=== PATIENT | female | born 1955 | race Caucasian/White ===

== ENCOUNTER 2019-04-05 20:00 | Outpatient (CLI) | payer MEDICAID, SELFPAY | END 2019-04-05 20:01 | disposition home or self-care (01) | LOC: SLEEP 04-06 10:00 | PROVIDERS: Family Provider Internal Medicine; PCP Internal Medicine; Visit Provider Internal Medicine | DX: G47.33 Obstructive sleep apnea (adult) (pediatric) (principal) | CPT/HCPCS: 95811 ==

== ENCOUNTER 2019-04-14 09:53 | Outpatient (CLI) | payer MEDICAID, SELFPAY ==
[2019-04-14 10:14] LABS: Basophils % 0.4 %; Eosinophils # 0.2 10^3/uL (0.0-0.8); Eosinophils % 1.8 %; Hematocrit 31.2 % (37.0-47.0); Hemoglobin 8.9 g/dL (11.5-15.3); Lymphocytes # 1.2 10^3/uL (0.8-4.8); Lymphocytes % 13.7 %; Mean Corpuscular HGB Conc 28.5 g/dL (30.0-36.0); Mean Corpuscular Volume 84.1 fL (81-99); Mean Platelet Volume 9.4 fL (7.4-10.4); Monocytes # 0.5 10^3/uL (0.2-0.9); Monocytes % 5.6 %; Neutrophils % 78.3 %; Nucleated Red Blood Cells % 0 %; Platelet Count 293 10^3/cmm (130-400); Red Blood Count 3.71 10^6/uL (4.1-5.3)
[2019-04-14 13:03] LABS: Ferritin 24 ng/mL (15-150); Iron 21 ug/dL (37-145); Percent Saturation 6.5 % (20-50); Total Iron Binding Capacity 319 mcg/dl; Unsaturated Iron Binding 298 ug/dL (112-347)
[2019-04-14 13:19] LABS: Folate Level 10.8 ng/mL (4.8-37.3); Vitamin B12 345 pg/mL (232-1245)
--- NOTE | 2019-04-14 13:22 | ONC FU_ITS ---
Dr. Pulido follow up note Patient: Seema Del Rosario Unit #: [id number]: 1955 Dicatated By: Abraham Pulido M.D.Date of Visit:Apr 14, 2019 Onc Med Follow-up/Prog Note History of Present Illness: Mrs. Seema Del Rosario, 62-year-old female with new diagnosed left breast cancer status post left partial mastectomy with axillary sentinel lymph node biopsy performed on 09/01/2016 final path report Infiltrating ductal carcinoma grade 1 with clear surgical margins tumor dimensions 3.6 x 1.5 cm positive lymphovascular space invasion Left axilla lymph node biopsy #1 showed benign lymph node no metastatic tumor identified Left axilla lymph node biopsy #2 benign adipose tissue no lymph node identified breast cancer prognostic profile showed Ki-67 analysis 4% favorable Estrogen receptor assay 100% Progesterone receptor assay 83% HER-2/bessy status negative by IHC and FISH over amplification As per patient in the month of she started having chest pain and went to see her primary care doctor and his CTA was done to rule out PE and it came back negative but there was a incidental finding of a left breast lump seen on the CT scan mammogram and sonogram was done and subsequently she underwent ultrasound-guided biopsy of left breast found to have infiltrating ductal carcinoma, and a further on 09/01/2016 she underwent partial mastectomy. Postop. Complicated by development of hematoma due to aspirin now resolved . She tried Arimidex for 1 week and developed joint pains and muscle aches just prior to recent hospital admission and then she stopped taking Arimidex Switched to Aromasin, tolerating well lower extremity pain/discomfort recently underwent great saphenous vein ablation of left side for symptomatic varicose vein. As per patient now procedure didn't help her much. In December 2017 she also had venous Doppler study of lower extremity that showed no DVTs but lower extremity arterial study showed evidence of peripheral vascular disease.Repeat venous Doppler study done on 07/16/2018 showed no evidence of DVT in left lower extremity occasional hot flashes otherwise tolerating Aromasin well Mammogram done on 09/09/2018 shows BI-RADS 2 benign Came for follow-up, denies any specific complaint except generalized weakness and fatigue, and recently underwent sleep study, patient has sleep apnea and using CPAP machine. Patient denies any melena or hematochezia denies any jaundice denies any hemoptysis hematemesis denies any palpitation or shortness of breath at rest. Occasionally hot flash otherwise tolerating Aromasin well Medications: Advair Diskus 1 puff(s) (of 250-50 mcg/dose) Aerosol Powder, Breath Activated Inhalation b.i.d., Albuterol Sulfate 2 puff(s) (of 108 (90 base) mcg/act) Aerosol Powder, Breath Activated Inhalation q 4 hours, Allopurinol 1 Tablet (of 100 mg) Oral daily, Amiodarone HCl 1 Tablet (of 200 mg) Oral daily, AmLODIPine Besylate 1 Tablet (of 10 mg) Oral daily, Aspirin EC 1 (325 mg) Tablet, enteric coated Oral daily, cloNIDine HCl 1 Tablet Oral daily, Exemestane 1 (25 mg) Tablet Oral daily, Gabapentin 1 Capsule (of 300 mg) Oral t.i.d., HumaLOG 35 Units Subcutaneous t.i.d., Isosorbide Mononitrate ER 1.5 Tablet (of 60 mg) Tablet SR 24 HR Oral every am, lasix 1 Tablet (of 80 mg) b.i.d., Simvastatin 1 (10 mg) Tablet Oral at bedtime, Spiriva HandiHaler 1 Capsule (of 18 mcg) Inhalation daily, Tresiba FlexTouch 100 Units Subcutaneous daily, Victoza 1.2 mg (of 0.6 ) Subcutaneous daily, Zoloft 1 Tablet (of 100 mg) Oral daily Allergies: Anastrozole Review of Systems: Constitutional - Appetite is good and weight is stable. No fever, chills, hot flashes, or night sweats. Energy level is poor, ENMT - No sinus congestion/drainage. No mouth sores. No sore throat or difficulty swallowing, Hematologic/Lymphatic - No abnormal bruising or bleeding, Respiratory - Frequent shortness of breath. No cough. No pleuritic pain or hemoptysis, Cardiovascular - No angina pain. No palpitations, Gastrointestinal - No nausea or vomiting. No heartburn or acid reflux. No diarrhea or constipation. No blood in the stool or black stools, Genitourinary (F) - No dysuria or hematuria. No urinary frequency. No urgency or incontinence, Musculoskeletal - No joint or bone pain, Integumentary - Denies alopecia, blistering, bruising, dry skin, facial burning, nail changes, photosensitivity, pruritus, rash and urticaria, Neurologic - No headache. Occasional dizziness. Patient reports diabetic neuropathy in feet, Psychiatric - No anxiety or depression. No insomnia. Vital Signs: Performed on Apr 14, 2019 11:42 Height - 66.00 in Weight - 307.0 lbs (HIGH) BSA - 2.40 sq.m BMI - 49.55 (HIGH) Temperature - 97.6 F (LOW) Pulse - 72 /min Respiration - 20 /min BP - 157/73 mm(hg) (HIGH) O2 Sat - 94 % (LOW) Pain - 0 Performance Status: 2 - Ambulatory/capable of all self-care, unable to perform any work activities. Up and about more than 50% of waking hours. (ECOG) Physical Examination: Respiratory - poor air entry, mild basilar rales bilaterally, Cardiovascular - Regular rate and rhythm of heart, Extremities - 2+ edema bilaterally. Lab/Imaging: Test performed on Oct 28, 2018 07:39 Sodium 143 mmol/L Potassium 3.3 mmol/L Chloride 93 mmol/L CO2 34 mmol/L Anion Gap 19.3 BUN 49 mg/dL Creatinine 1.7 mg/dL Cr Clearance (Est) 72.68 mL/min eGFR 30.5 mL/min Glucose 102 mg/dl Calcium 9.7 mg/dL Protein, Total 7.8 g/dL Albumin 4.0 g/dL Globulin 3.8 gm/dL Bilirubin, Total 0.2 mg/dL ALT (SGPT) 20 U/L AST (SGOT) 18 U/L Alkaline Phosphatase 91 U/L WBC 11.1 /cmm RBC 3.95 10 6/cmm HGB 10.8 g/dl HCT 33.0 % MCV 83.7 /cmm MCH 27.3 pg MCHC 32.6 g/dl RDW 16.2 % Platelet Count 329 10 3/cmm MPV 7.4 fl Neutrophils 8.6 10 3/cmm Lymphocytes 1.6 10 3/cmm Monocytes 0.6 10 3/cmm Eosinophils 0.2 10 3/cmm Basophils 0.1 10 3/cmm Neutrophil % 77.5 % Lymphocyte % 14.6 % Monocyte % 5.8 % Eosinophil % 1.5 % Basophils % 0.6 % CA 27.29 9.43 U/mL Impression: Infiltrating ductal carcinoma of left breast status post partial mastectomy on 09/01/2016 final path report tumor size 3.6 x 1.5 cm , grade 1 clear margins , sentinel lymph node negative for metastatic disease, ER/OK positive HER-2/bessy negative by IHC and over amplification by FISH. T2, N0 ( sentinal node) ,Mx stage IIA Oncotype DX low risk recurrence score 3 Started on Arimidex on 10/16/2016 took it for 1 week then discontinued because of joint pains and muscle aches Started on exemestane 25 mg daily on 01/22/2017. For 5 years Recent Episode of atrial fibrillation status post cardioversion Newly diagnosed anemia normocytic normochromic ? etiology , could be due to diagnostic phlebotomy for lab workup during hospitalization, or blood loss due to anticoagulation for A. fib, patient denies any melena hematochezia. Follow-up mammogram done on 09/08/2017 showed BI-RADS 2-benign. Venous Doppler study of lower extremity done in December 2017 showed no evidence of DVTs but arterial study showed peripheral vascular disease. status post left great saphenous vein ablation Plan: Discussed with patient regarding her labs white blood count 9 hemoglobin 8.9 compared to 10.8 g on 10/28/2018 hematocrit 31.2 platelets 293,000 Clinically, patient is doing well, no signs symptoms suggestive of recurrence of breast cancer. Tolerating Aromasin well but with expected side effects e.g. occasionally hot flashes. Patient has progressive anemia, etiology unclear could be multifactorial including anemia due to chronic renal insufficiency or anemia of chronic disease or underlying myelodysplasia or iron deficiency/B12 deficiency. Or hemodilution, due to food retention due to congestive heart failure. We will do iron studies, check B12 and folate level and reticulocyte count and based on that we will make further recommendations in the meantime continue to monitor blood counts she will return to clinic in one month with CBC and consider blood transfusion if hemoglobin drops below 8 g. Signed By: Abraham Pulido M.D. <<Signature on File>>
== END 2019-04-14 09:54 | disposition home or self-care (01) ==
LOC: ONCMED 09:55
PROVIDERS: Family Provider Internal Medicine; PCP Internal Medicine; Visit Provider Internal Medicine Hematology & Oncology
DX: C50.512 Malignant neoplasm of lower-outer quadrant of left female breast (principal); D64.9 Anemia, unspecified; I48.91 Unspecified atrial fibrillation; Z17.0 Estrogen receptor positive status [ER+]; Z79.811 Long term (current) use of aromatase inhibitors; Z79.899 Other long term (current) drug therapy; Z90.12 Acquired absence of left breast and nipple
CPT/HCPCS: 36415; 82607; 82728; 82746; 83540; 83550; 85025; 85045; 99214

== ENCOUNTER 2019-04-25 10:39 | Emergency (ER) | payer MEDICAID, SELFPAY ==
[2019-04-25 10:51] VITALS: BP 147/73; PULSE 65; RESP 16; O2SAT 97; BMI 49.9
--- NOTE | 2019-04-25 11:12 | ECG_ITS ---
Measurements Intervals [place] Rate: 67 P: 55 ND: 191 QRS: -43 QRSD: 170 T: 48 QT: 492 QTc: 520 SINUS RHYTHM LEFT AXIS DEVIATION [QRS AXIS < -30] RIGHT BUNDLE BRANCH BLOCK [120+ ms QRS DURATION, UPRIGHT V1, 40+ ms S IN I/aVL/V4/V5/V6] ANTEROSEPTAL MYOCARDIAL INFARCTION , OF INDETERMINATE AGE [40+ ms Q WAVE IN V1-V4] Compared to ECG 01/20/2019 14:47:50 No significant changes Electronically Signed On 04-25-2019 20:50:18 CDT by Reid Lopez M.D. [id number]
--- NOTE | 2019-04-25 11:12 | XRR_ITS ---
PROCEDURE INFORMATION: Exam: XR Chest, 1 View Exam date and time: 04/25/2019 11:30 AM Age: 63 years old Clinical indication: Cough; Prior surgery; Surgery date: 6+ months; Surgery type: Stent; Additional info: Cough/congestion TECHNIQUE: Imaging protocol: XR of the chest Views: 1 view. COMPARISON: CR Chest 2 views* [id number] 01/23/2019 9:47 AM FINDINGS: Lungs: Lungs are well aerated without a focal area of consolidation. Pleural space: Subpulmonic effusion on the right Heart/Mediastinum: The cardiac silhouette appears enlarged, Bones/joints: Unremarkable. XR/XR chest 1V portable [id number] IMPRESSION: Lungs are well aerated without a focal area of consolidation. Subpulmonic effusion on the right
[2019-04-25 11:48] LABS: Basophils % 0.3 %; Eosinophils # 0.1 10^3/uL (0.0-0.8); Eosinophils % 0.8 %; Hematocrit 31.5 % (37.0-47.0); Hemoglobin 9.1 g/dL (11.5-15.3); Lymphocytes # 1.3 10^3/uL (0.8-4.8); Lymphocytes % 11.9 %; Mean Corpuscular HGB Conc 28.9 g/dL (30.0-36.0); Mean Corpuscular Hemoglobin 23.5 pg (28.0-34.0); Mean Corpuscular Volume 81.4 fL (81-99); Mean Platelet Volume 9.1 fL (7.4-10.4); Monocytes # 0.5 10^3/uL (0.2-0.9); Monocytes % 4.5 %; Neutrophils # 8.8 10^3/uL (1.8-7.7); Nucleated Red Blood Cells % 0 %; Platelet Count 322 10^3/cmm (130-400); Red Blood Count 3.87 10^6/uL (4.1-5.3); Red Cell Distribution Width 17.1 % (12.1-15.1); White Blood Count 10.7 10^3/uL (4.0-10.0)
[2019-04-25 12:09] LABS: Alanine Aminotransferase 22 U/L (0-33); Albumin Level 3.8 g/dL (3.5-5.2); Alkaline Phosphatase 88 IU/L (35-105); Anion Gap 17.9 (5-19); Aspartate Amino Transferase 21 U/L (0-32); Blood Urea Nitrogen 39 mg/dL (8-23); Calcium 9.5 mg/dL (8.5-10.5); Carbon Dioxide 28 mmol/L (22-29); Chloride 102 mmol/L (98-107); Globulin 3.7 g/dL (1.3-4.6); Glucose 55 mg/dL (65-115); Osmolality Calculated 293 mOsm/kg (285-295); Potassium 3.9 mmol/L (3.5-5.1); Sodium 144 mmol/L (136-145); Total Bilirubin 0.3 mg/dL (0.15-1.2); Total Protein 7.5 g/dL (6.6-8.7)
[2019-04-25 12:11] LABS: Troponin(5th) Baseline 31 ng/mL (0-10)
--- NOTE | 2019-04-25 14:03 | ED_ITS ---
Entered by Celeste Cooper, acting as scribe for Godwin Mclaughlin DO Apr 25, 2019 10:39 HPI - Chest Pain General: Chief Complaint: Chest Pain Stated Complaint: SOB, CHEST PAINS Time Seen by Provider: 04/25/19 14:14 Source: patient and family Mode of arrival: ambulatory Limitations: no limitations History of Present Illness: HPI narrative: 63 yo female presents with shortness of breath and chest discomfort. pt states this started several days ago but worsened today. pt was seen by PCP clinic and referred to the ED. pt has a hx of CHF. pt has bilateral leg swelling. pt states this is worsened by laying flat and nothing makes this better. MD complaint: chest pain and other (SOB) Onset (ago): day(s) Timing of current episode: increasing and still present Onset: during rest Pain radiation: none Severity: moderate Quality: heaviness Relieving factors: nothing Exacerbating factors: exertion Associated symptoms: Reports dyspnea; Deny abdominal pain, fever(s), nausea, palpitations or vomiting Treatment prior to arrival: none Review of Systems General: Reports: 10 or more systems reviewed and unremarkable except in HPI and below Const: Denies: fever, chills, body aches, change in appetite, fatigue or malaise ENMT: Denies: throat pain, ear pain, nasal discharge or nasal congestion Card: Reports: swelling of feet/ankles and shortness of breath on exertion; Denies: chest pain, palpitations or irregular heart rhythm Resp: Reports: shortness of breath GI: Denies: abdominal pain, nausea, vomiting, vomiting blood, coffee grounds in vomit, diarrhea, constipation, bloating, blood in stool or black tarry stool : Denies: flank pain, difficulty urinating, painful urination, urinary frequency or urinary urgency Skin/Breast: Denies: rash or itching PFSH ED PFSH: Social History Smoking and tobacco status: never smoked Physical Exam Const: COMMON NORMALS: no apparent distress GENERAL APPEARANCE: cooperative and comfortable ORIENTATION/CONSCIOUSNESS: Yes awake, Yes oriented to person, Yes oriented to place and Yes oriented to time HENMT: COMMON NORMALS: normocephalic, head/scalp atraumatic, hearing grossly normal bilaterally, external ears normal, EAC's normal, TM's normal bilaterally, nasal mucous membranes and turbinates normal, moist oral mucous membranes and oropharynx normal HEAD & SCALP: normocephalic and atraumatic NOSE: nasal mucous membranes and turbinates normal EXTERNAL EAR: Yes external ears normal EXTERNAL AUDITORY CANAL: EAC's normal TYMPANIC MEMBRANE: TM's normal bilaterally Eye: COMMON NORMALS: PERRL, EOMs intact bilaterally, conjunctivae normal and no scleral icterus CONJUNCTIVA: Yes conjunctivae normal PUPIL: Yes PERRL Neck/C-Spine: COMMON NORMALS: full ROM, no lymphadenopathy, supple and no JVD Lymph: LYMPHATIC: no lymphadenopathy noted and no lymphedema noted Resp: AUSCULTATION: wheezes Cardio: COMMON NORMALS: no JVD, regular rate, regular rhythm and no murmurs RATE: regular rate RHYTHM: regular rhythm GI: COMMON NORMALS: soft to palpation and no hepatosplenomegaly AUSCULTATION: Yes normoactive bowel sounds PALPATION: Yes soft, No tender, No guarding and Yes no hepatosplenomegaly Extremity: GENERAL: Yes edema (3+ edema lower extremities she does have some ulcerations. Shallow no active infections apparent no erythema chronic venous stasis changes) RIGHT LOWER EXTREMITY: Yes ankle joint LEFT LOWER EXTREMITY: Yes lower leg and Yes ankle joint Neuro: SENSORIUM/ORIENTATION: Yes oriented to person, Yes oriented to place and Yes oriented to time Skin: COMMON NORMALS: no rashes or lesions noted GENERAL SKIN EXAM: no rashes or lesions noted Course ED course: No significant signs of congestive heart failure at this time. We will will increase her diuretics and potassium for a few days to improve decrease the edema in her lower extremities. Encourage her to keep her legs elevated. Return if has problems. Follow-up with her primary care doctor in 3 days for recheck of labs. Vital Signs: Vital signs: Vital Signs Pulse Rate 77 04/25/19 15:48 Respiratory Rate 17 04/25/19 15:48 Blood Pressure 177/87 04/25/19 15:48 Pulse Oximetry 97 04/25/19 15:48 MDM - Chest Pain Lab Data: Labs: Lab Results 04/25/19 04/25/19 04/25/19 Range/Units 11:38 11:38 11:38 WBC 10.7 H (4.0-10.0) 10^3/ uL RBC 3.87 L (4.1-5.3) 10^6/u L Hgb 9.1 L (11.5-15.3) g/dL Hct 31.5 L (37.0-47.0) % MCV 81.4 (81-99) fL MCH 23.5 L (28.0-34.0) pg MCHC 28.9 L (30.0-36.0) g/dL RDW 17.1 H (12.1-15.1) % Plt Count 322 (130-400) 10^3/c mm MPV 9.1 (7.4-10.4) fL Neut % (Auto) 82.0 % Lymph % (Auto) 11.9 % [place] % (Auto) 4.5 % Eos % (Auto) 0.8 % Baso % (Auto) 0.3 % Neut # (Auto) 8.8 H (1.8-7.7) 10^3/u L Lymph # (Auto) 1.3 (0.8-4.8) 10^3/u L [place] # (Auto) 0.5 (0.2-0.9) 10^3/u L Eos # (Auto) 0.1 (0.0-0.8) 10^3/u L Baso # (Auto) 0.0 (0.0-0.1) 10^3/u L Nucleated RBC % (a uto) 0 % Nucleated RBCs # 0.0 /100WBC Sodium 144 (136-145) mmol/L Potassium 3.9 (3.5-5.1) mmol/L Chloride 102 (98-107) mmol/L Carbon Dioxide 28 (22-29) mmol/L Anion Gap 17.9 (5-19) BUN 39 H (8-23) mg/dL Creatinine 1.4 H (0.5-0.9) mg/dL GFR Calculation 38.0 L (90-130) mL/min Glucose 55 L (65-115) mg/dL Calculated Osmolal ity 293 (285-295) mOsm/k g Calcium 9.5 (8.5-10.5) mg/dL Total Bilirubin 0.3 (0.15-1.2) mg/dL AST 21 (0-32) U/L ALT 22 (0-33) U/L Alkaline Phosphata se 88 (35-105) IU/L Troponin T Baselin e 31 H (0-10) ng/mL Troponin T [address] [place] (0-10) ng/mL Delta Troponin T (0-10) ABS# NT-Pro-B Natriuret Pep (0-125) pg/mL Total Protein 7.5 (6.6-8.7) g/dL Albumin 3.8 (3.5-5.2) g/dL Globulin 3.7 (1.3-4.6) g/dL 04/25/19 04/25/19 Range/Units 13:40 13:40 WBC (4.0-10.0) 10^3/ uL RBC (4.1-5.3) 10^6/u L Hgb (11.5-15.3) g/dL Hct (37.0-47.0) % MCV (81-99) fL MCH (28.0-34.0) pg MCHC (30.0-36.0) g/dL RDW (12.1-15.1) % Plt Count (130-400) 10^3/c mm MPV (7.4-10.4) fL Neut % (Auto) % Lymph % (Auto) % [place] % (Auto) % Eos % (Auto) % Baso % (Auto) % Neut # (Auto) (1.8-7.7) 10^3/u L Lymph # (Auto) (0.8-4.8) 10^3/u L [place] # (Auto) (0.2-0.9) 10^3/u L Eos # (Auto) (0.0-0.8) 10^3/u L Baso # (Auto) (0.0-0.1) 10^3/u L Nucleated RBC % (a uto) % Nucleated RBCs # /100WBC Sodium (136-145) mmol/L Potassium (3.5-5.1) mmol/L Chloride (98-107) mmol/L Carbon Dioxide (22-29) mmol/L Anion Gap (5-19) BUN (8-23) mg/dL Creatinine (0.5-0.9) mg/dL GFR Calculation (90-130) mL/min Glucose (65-115) mg/dL Calculated Osmolal ity (285-295) mOsm/k g Calcium (8.5-10.5) mg/dL Total Bilirubin (0.15-1.2) mg/dL AST (0-32) U/L ALT (0-33) U/L Alkaline Phosphata se (35-105) IU/L Troponin T Baselin e (0-10) ng/mL Troponin T 120 [address] [place] 27.07 H (0-10) ng/mL Delta Troponin T -3.93 L (0-10) ABS# NT-Pro-B Natriuret Pep 2660 H (0-125) pg/mL Total Protein (6.6-8.7) g/dL Albumin (3.5-5.2) g/dL Globulin (1.3-4.6) g/dL Discharge Plan Discharge Patient Disposition: Home, Self-Care Clinical Impression: Venous stasis ulcer with edema of lower leg Condition: Stable Prescriptions: Changed furosemide 80 mg tablet 120 mg PO BID Qty: 0 RF: 0 No Action silver sulfadiazine 1 % cream 1 applic TOPICAL BID RF: 0 clonidine HCl 0.1 mg tablet 0.1 mg PO Q8H PRN (Reason: Blood Pressure) RF: 0 amiodarone 200 mg tablet 200 mg PO DAILY RF: 0 sertraline 100 mg tablet 100 mg PO DAILY RF: 0 simvastatin 10 mg tablet 10 mg PO DAILY RF: 0 metolazone 5 mg tablet 5 mg PO EVERY OTHER DAY RF: 0 allopurinol 100 mg tablet 100 mg PO DAILY RF: 0 isosorbide mononitrate 60 mg tablet extended release 24 hr 90 mg PO DAILY RF: 0 exemestane 25 mg tablet 25 mg PO DAILY RF: 0 amlodipine 10 mg tablet 10 mg PO DAILY RF: 0 gabapentin 300 mg capsule 300 mg PO TID RF: 0 polyethylene glycol 3350 17 gram/dose powder 17 g PO DAILY PRN (Reason: Constipation) RF: 0 Humalog KwikPen Insulin 100 unit/mL insulin pen 35 unit SUBCUT TID RF: 0 Victoza 2-Jeremy 0.6 mg/0.1 mL (18 mg/3 mL) pen injector 1.2 mg SUBCUT DAILY RF: 0 Tresiba FlexTouch U-200 200 unit/mL (3 mL) insulin pen 100 unit SUBCUT DAILY RF: 0 potassium chloride 20 mEq tablet extended release 20 meq PO BID RF: 0 aspirin 325 mg Tablet 325 mg PO DAILY RF: 0 Discharge Orders: Discharge Order (Routine); Ordered 04/25/19 Ordered By: Godwin Mclaughlin Referrals: Jeanine Solares MD [Primary Care Provider] - Activity Restrictions/Additional Instructions: Use the increased Lasix dose for 5 days. During this time double your for potassium supplement dose. Follow-up with your doctor in 3 to 5 days. Discharge Date/Time: 04/25/19 15:49 Coding Level of Care Code ED Rhythmic Gymnastics Coach for Chg Fwd Exam Comprehensive The documentation recorded by the Kenneth ramos Bridget Annette, accurately reflects the service I personally performed and the decisions made by Arnoldo mathew Curtis L, DO Apr 25, 2019 10:39
[2019-04-25 14:38] LABS: Troponin 5 2HR 27.07 ng/mL (0-10)
[2019-04-25 14:43] LABS: Troponin 5 2HR Delta -3.93 ABS# (0-10)
[2019-04-25 14:52] VITALS: O2SAT 96
[2019-04-25 14:55] LABS: NT Pro B Type Natriuretic Pept 2660 pg/mL (0-125)
[2019-04-25] MEDS: FUROsemide 10 mg/mL SDV 10mL 60 MG IVP (14:57)
[2019-04-25 15:48] VITALS: BP 177/87; PULSE 77; RESP 17; O2SAT 97
== END 2019-04-25 15:49 | disposition home or self-care (01) ==
PROVIDERS: Physician Assistant; Emergency Provider Family Medicine; Family Provider Internal Medicine; PCP Internal Medicine
DX: I83.018 Varicose veins of right lower extremity with ulcer other part of lower leg (principal); L97.819 Non-pressure chronic ulcer of other part of right lower leg with unspecified severity; I50.9 Heart failure, unspecified
CPT/HCPCS: 12345; 36415; 71045; 80053; 83880; 84484; 85025; 93005; 96374; 96375; 99283; J1940

== ENCOUNTER 2019-05-12 13:01 | Outpatient (RCR) | payer MEDICAID, SELFPAY | END 2019-05-17 23:59 | disposition home or self-care (01) | LOC: WOUND 13:01 | PROVIDERS: Family Provider Internal Medicine; PCP Internal Medicine; Visit Provider Nurse Practitioner Family | DX: I87.2 Venous insufficiency (chronic) (peripheral) (principal); L97.822 Non-pressure chronic ulcer of other part of left lower leg with fat layer exposed; L97.812 Non-pressure chronic ulcer of other part of right lower leg with fat layer exposed | CPT/HCPCS: 11042; 87070; 87077; 87176; 87186; 87205; 99214; 99215 ==

== ENCOUNTER 2019-05-16 04:20 | Outpatient (CLI) | payer MEDICAID, SELFPAY ==
[2019-05-16 11:58] LABS: Basophils % 0.2 %; Eosinophils # 0.2 10^3/uL (0.0-0.8); Eosinophils % 1.5 %; Hematocrit 31.1 % (37.0-47.0); Hemoglobin 8.8 g/dL (11.5-15.3); Lymphocytes % 9.7 %; Mean Corpuscular HGB Conc 28.3 g/dL (30.0-36.0); Mean Corpuscular Hemoglobin 23.2 pg (28.0-34.0); Mean Corpuscular Volume 82.1 fL (81-99); Mean Platelet Volume 9.8 fL (7.4-10.4); Monocytes # 0.8 10^3/uL (0.2-0.9); Monocytes % 7.9 %; Neutrophils # 7.9 10^3/uL (1.8-7.7); Neutrophils % 80.2 %; Nucleated Red Blood Cells % 0 %; Platelet Count 350 10^3/cmm (130-400); Red Blood Count 3.79 10^6/uL (4.1-5.3); Red Cell Distribution Width 16.9 % (12.1-15.1); White Blood Count 9.8 10^3/uL (4.0-10.0)
== END 2019-05-16 04:21 | disposition home or self-care (01) ==
LOC: ONCMED 10:47
PROVIDERS: Family Provider Internal Medicine; PCP Internal Medicine; Visit Provider Internal Medicine Hematology & Oncology
DX: C50.512 Malignant neoplasm of lower-outer quadrant of left female breast (principal); E11.9 Type 2 diabetes mellitus without complications; E78.5 Hyperlipidemia, unspecified; J44.9 Chronic obstructive pulmonary disease, unspecified; M19.90 Unspecified osteoarthritis, unspecified site
CPT/HCPCS: 85025

== ENCOUNTER 2019-06-16 09:19 | Outpatient (RCR) | payer MEDICAID, SELFPAY | END 2019-06-16 23:59 | disposition home or self-care (01) | LOC: WOUND 09:19 | PROVIDERS: Family Provider Internal Medicine; PCP Internal Medicine; Visit Provider Nurse Practitioner Family | DX: I87.2 Venous insufficiency (chronic) (peripheral) (principal); L97.822 Non-pressure chronic ulcer of other part of left lower leg with fat layer exposed; L97.812 Non-pressure chronic ulcer of other part of right lower leg with fat layer exposed | CPT/HCPCS: 99214; 99215; G0463 ==

== ENCOUNTER 2019-06-30 09:24 | Outpatient (CLI) | payer MEDICAID, SELFPAY | END 2019-06-30 09:25 | disposition home or self-care (01) | LOC: WOUND 09:25 | PROVIDERS: Family Provider Internal Medicine; PCP Internal Medicine; Visit Provider Nurse Practitioner Family | DX: I87.2 Venous insufficiency (chronic) (peripheral) (principal); L97.812 Non-pressure chronic ulcer of other part of right lower leg with fat layer exposed | CPT/HCPCS: 29581; 99214 ==

== ENCOUNTER 2019-07-04 13:09 | Outpatient (CLI) | payer MEDICAID, SELFPAY | END 2019-07-04 13:10 | disposition home or self-care (01) | LOC: WOUND 13:09 | PROVIDERS: Family Provider Internal Medicine; PCP Internal Medicine; Visit Provider Nurse Practitioner Family | DX: Z51.89 Encounter for other specified aftercare (principal) | CPT/HCPCS: 29581 ==

== ENCOUNTER 2019-07-07 10:25 | Outpatient (CLI) | payer MEDICAID, SELFPAY ==
--- NOTE | 2019-07-07 10:28 | USCV_ITS ---
Seema Del Rosario Age: 63 Gender: F : 1955 Exam Date: 07/07/2019 10:44 Ordering Phys: Annie Foster XX Technologist: Exam Location: [facility] [place]_ Indication: SKIN ULCERS RIGHT LEFT Brachial 131.00 mmHg Brachial 145.00 mmHg Pressure (mmHg) Waveform Pressure (mmHg) Waveform 156.00 SERVICE DIRECTOR 149.00 147.00 DPA 145.00 1.00 Ankle/Brachial Index 1.00 100.00 Pre-Exercise Toe Pressure 99.00 0.69 Pre-Exercise Toe/Brachial Index 0.66 FINDINGS Normal resting ABIs bilaterally Minimally diminished resting TBIs bilaterally Normal segmental pressures CONCLUSIONS Features of mild peripheral artery disease bilaterally, possibly involving the distal vessels Dr Valentin Partida MD FAC (Electronically Signed) Final Date: 08 Jul 2019 13:50 S
== END 2019-07-07 10:26 | disposition home or self-care (01) ==
LOC: RAD 10:26
PROVIDERS: Family Provider Internal Medicine; PCP Internal Medicine; Visit Provider Nurse Practitioner Family
DX: L97.309 Non-pressure chronic ulcer of unspecified ankle with unspecified severity (principal); I73.9 Peripheral vascular disease, unspecified
CPT/HCPCS: 93922

== ENCOUNTER 2019-07-07 13:00 | Outpatient (CLI) | payer MEDICAID, SELFPAY | END 2019-07-07 13:01 | disposition home or self-care (01) | LOC: WOUND 13:00 | PROVIDERS: Family Provider Internal Medicine; PCP Internal Medicine; Visit Provider Nurse Practitioner Family | DX: I87.2 Venous insufficiency (chronic) (peripheral) (principal); L97.819 Non-pressure chronic ulcer of other part of right lower leg with unspecified severity | CPT/HCPCS: 99213 ==

== ENCOUNTER 2019-07-14 14:26 | Outpatient (CLI) | payer MEDICAID, SELFPAY | END 2019-07-14 14:27 | disposition home or self-care (01) | LOC: WOUND 14:26 | PROVIDERS: Family Provider Internal Medicine; PCP Internal Medicine; Visit Provider Nurse Practitioner Family | DX: Z09 Encounter for follow-up examination after completed treatment for conditions other than malignant neoplasm (principal) | CPT/HCPCS: 99212 ==

== ENCOUNTER 2019-07-21 14:03 | Outpatient (CLI) | payer MEDICAID, SELFPAY | END 2019-07-21 14:04 | disposition home or self-care (01) | LOC: WOUND 14:03 | PROVIDERS: Family Provider Internal Medicine; PCP Internal Medicine; Visit Provider Nurse Practitioner Family | DX: Z09 Encounter for follow-up examination after completed treatment for conditions other than malignant neoplasm (principal) | CPT/HCPCS: 99212; A6545 ==

== ENCOUNTER 2019-08-04 12:21 | Outpatient (CLI) | payer MEDICAID, SELFPAY ==
[2019-08-04 13:01] LABS: Basophils % 0.4 %; Eosinophils # 0.2 10^3/uL (0.0-0.8); Eosinophils % 1.4 %; Hematocrit 32.4 % (37.0-47.0); Hemoglobin 9.4 g/dL (11.5-15.3); Lymphocytes # 1.3 10^3/uL (0.8-4.8); Lymphocytes % 12.1 %; Mean Corpuscular Hemoglobin 23.4 pg (28.0-34.0); Mean Corpuscular Volume 80.6 fL (81-99); Mean Platelet Volume 9.6 fL (7.4-10.4); Monocytes # 0.5 10^3/uL (0.2-0.9); Monocytes % 4.7 %; Neutrophils # 8.8 10^3/uL (1.8-7.7); Neutrophils % 81.1 %; Nucleated Red Blood Cells % 0 %; Platelet Count 349 10^3/cmm (130-400); Red Blood Count 4.02 10^6/uL (4.1-5.3); Red Cell Distribution Width 18.4 % (12.1-15.1); White Blood Count 10.9 10^3/uL (4.0-10.0)
--- NOTE | 2019-08-04 14:24 | ONC FU_ITS ---
Dr. Pulido follow up note Patient: Seema Del Rosario Unit #: [id number]: 1955 Dicatated By: Abraham Pulido M.D.Date of Visit:Aug 04, 2019 Onc Med Follow-up/Prog Note History of Present Illness: Mrs. Seema Del Rosario, 63-year-old female with new diagnosed left breast cancer status post left partial mastectomy with axillary sentinel lymph node biopsy performed on 09/01/2016 final path report Infiltrating ductal carcinoma grade 1 with clear surgical margins tumor dimensions 3.6 x 1.5 cm positive lymphovascular space invasion Left axilla lymph node biopsy #1 showed benign lymph node no metastatic tumor identified Left axilla lymph node biopsy #2 benign adipose tissue no lymph node identified breast cancer prognostic profile showed Ki-67 analysis 4% favorable Estrogen receptor assay 100% Progesterone receptor assay 83% HER-2/bessy status negative by IHC and FISH over amplification As per patient in the month of she started having chest pain and went to see her primary care doctor and his CTA was done to rule out PE and it came back negative but there was a incidental finding of a left breast lump seen on the CT scan mammogram and sonogram was done and subsequently she underwent ultrasound-guided biopsy of left breast found to have infiltrating ductal carcinoma, and a further on 09/01/2016 she underwent partial mastectomy. Postop. Complicated by development of hematoma due to aspirin now resolved . She tried Arimidex for 1 week and developed joint pains and muscle aches just prior to recent hospital admission and then she stopped taking Arimidex Switched to Aromasin, tolerating well lower extremity pain/discomfort recently underwent great saphenous vein ablation of left side for symptomatic varicose vein. As per patient now procedure didn't help her much. In December 2017 she also had venous Doppler study of lower extremity that showed no DVTs but lower extremity arterial study showed evidence of peripheral vascular disease.Repeat venous Doppler study done on 07/16/2018 showed no evidence of DVT in left lower extremity occasional hot flashes otherwise tolerating Aromasin well Mammogram done on 09/09/2018 shows BI-RADS 2 benign Came for follow-up, complaining of generalized weakness and fatigue, but no melena or hematochezia, no hemoptysis or hematemesis, no jaundice, no palpitation no shortness of breath at rest. Patient said she is using BiPAP diligently for sleep apnea.. Occasional hot flashes otherwise tolerating Aromasin well along with vitamin D and calcium Medications: Advair Diskus 1 puff(s) (of 250-50 mcg/dose) Aerosol Powder, Breath Activated Inhalation b.i.d., Albuterol Sulfate 2 puff(s) (of 108 (90 base) mcg/act) Aerosol Powder, Breath Activated Inhalation q 4 hours, Allopurinol 1 Tablet (of 100 mg) Oral daily, Amiodarone HCl 1 Tablet (of 200 mg) Oral daily, AmLODIPine Besylate 1 Tablet (of 10 mg) Oral daily, Aspirin EC 1 (325 mg) Tablet, enteric coated Oral daily, cloNIDine HCl 1 Tablet Oral daily, Exemestane 1 (25 mg) Tablet Oral daily, Gabapentin 1 Capsule (of 300 mg) Oral t.i.d., HumaLOG 35 Units Subcutaneous t.i.d., Isosorbide Mononitrate ER 1.5 Tablet (of 60 mg) Tablet SR 24 HR Oral every am, lasix 1 Tablet (of 80 mg) b.i.d., Simvastatin 1 (10 mg) Tablet Oral at bedtime, Spiriva HandiHaler 1 Capsule (of 18 mcg) Inhalation daily, Tresiba FlexTouch 100 Units Subcutaneous daily, Victoza 1.2 mg (of 0.6 ) Subcutaneous daily, Zoloft 1 Tablet (of 100 mg) Oral daily Allergies: Anastrozole Review of Systems: Constitutional - Appetite is good and weight is stable. No fever, chills, hot flashes, or night sweats. Energy level is poor, ENMT - No sinus congestion/drainage. No mouth sores. No sore throat or difficulty swallowing, Hematologic/Lymphatic - No abnormal bruising or bleeding, Respiratory - Frequent shortness of breath. Pt has portable oxygen today. No cough. No pleuritic pain or hemoptysis, Cardiovascular - No angina pain. No palpitations, Gastrointestinal - No nausea or vomiting. No heartburn or acid reflux. No diarrhea or constipation. No blood in the stool or black stools, Genitourinary (F) - No dysuria or hematuria. No urinary frequency. No urgency or incontinence, Musculoskeletal - No joint or bone pain, Integumentary - Denies alopecia, blistering, bruising, dry skin, facial burning, nail changes, photosensitivity, pruritus, rash and urticaria, Neurologic - No headache. Occasional dizziness. Patient reports diabetic neuropathy in feet, Psychiatric - No anxiety or depression. No insomnia. Vital Signs: Performed on Aug 04, 2019 13:50 Height - 66.00 in Weight - 296.6 lbs (LOW) BSA - 2.36 sq.m BMI - 47.87 (HIGH) Temperature - 98.0 F (LOW) Pulse - 64 /min Respiration - 20 /min BP - 155/66 mm(hg) (HIGH) O2 Sat - 98 % Pain - 0 Performance Status: 1 - No physically strenuous activity, but ambulatory and able to carry out light or sedentary work (e.g. office work, light house work). (ECOG) Physical Examination: Respiratory - Lungs are clear, Cardiovascular - Regular rate and rhythm of heart, Gastrointestinal - Soft, bowel sounds present, Extremities - 1+ edema bilaterally. Lab/Imaging: Test performed on May 16, 2019 04:20 WBC 9.8 10 3/uL RBC 3.79 10 6/uL HGB 8.8 g/dL HCT 31.1 % MCV 82.1 fL MCH 23.2 pg MCHC 28.3 g/dL RDW 16.9 % Platelet Count 350 10 3/cmm MPV 9.8 fL Neutrophils 7.9 10 3/uL Lymphocytes 1.0 10 3/uL Monocytes 0.8 10 3/uL Eosinophils 0.2 10 3/uL Basophils 0.0 10 3/uL Neutrophil % 80.2 % Lymphocyte % 9.7 % Monocyte % 7.9 % Eosinophil % 1.5 % Basophils % 0.2 % Test performed on Apr 14, 2019 12:33 Ferritin 24 ng/mL Iron 21 ug/dL Vitamin B12 345 pg/mL UIBC 298 ug/dL Impression: Infiltrating ductal carcinoma of left breast status post partial mastectomy on 09/01/2016 final path report tumor size 3.6 x 1.5 cm , grade 1 clear margins , sentinel lymph node negative for metastatic disease, ER/TX positive HER-2/bessy negative by IHC and over amplification by FISH. T2, N0 ( sentinal node) ,Mx stage IIA Oncotype DX low risk recurrence score 3 Started on Arimidex on 10/16/2016 took it for 1 week then discontinued because of joint pains and muscle aches Started on exemestane 25 mg daily on 01/22/2017. For 5 years Recent Episode of atrial fibrillation status post cardioversion Newly diagnosed anemia normocytic normochromic ? etiology , could be due to diagnostic phlebotomy for lab workup during hospitalization, or blood loss due to anticoagulation for A. fib, patient denies any melena hematochezia. Follow-up mammogram done on 09/08/2017 showed BI-RADS 2-benign. Venous Doppler study of lower extremity done in December 2017 showed no evidence of DVTs but arterial study showed peripheral vascular disease. status post left great saphenous vein ablation Plan: Discussed with patient regarding her labs white blood count 10.9 hemoglobin 9.4 hematocrit 32.4 platelets 349,000 and iron studies done on April 14, 2019 showed iron saturation 6.5% L, iron 21 L, ferritin 24 folate 10.8, B12 345 Clinically, patient is doing reasonably well, with no new signs symptom suggestive of recurrence of disease, tolerating Aromasin/vitamin D/calcium well. Will continue with same As for his anemia is concerned, her anemia work-up is consistent with iron deficiency and patient never had colonoscopy or EGD done before. Will refer her to Dr. Leavitt for evaluation for colonoscopy/EGD to rule out GI source of blood loss. Patient was advised to start taking oral iron and multivitamin and then she will return to clinic in 2 months with CBC and iron studies, if there is no improvement we will consider parenteral iron. And also consider follow-up mammogram Signed By: Abraham Pulido M.D. <<Signature on File>>
== END 2019-08-04 12:22 | disposition home or self-care (01) ==
LOC: ONCMED 12:27
PROVIDERS: PCP Internal Medicine; Visit Provider Internal Medicine Hematology & Oncology
DX: C50.812 Malignant neoplasm of overlapping sites of left female breast (principal); Z17.0 Estrogen receptor positive status [ER+]; D64.9 Anemia, unspecified; Z79.811 Long term (current) use of aromatase inhibitors; I48.91 Unspecified atrial fibrillation; I73.9 Peripheral vascular disease, unspecified; Z90.12 Acquired absence of left breast and nipple
CPT/HCPCS: 85025; 99214

== ENCOUNTER 2019-08-18 15:31 | Outpatient (CLI) | payer MEDICAID, SELFPAY | END 2019-08-18 15:32 | disposition home or self-care (01) | LOC: WOUND 15:32 | PROVIDERS: PCP Internal Medicine; Visit Provider Nurse Practitioner Family | DX: I87.2 Venous insufficiency (chronic) (peripheral) (principal); L97.811 Non-pressure chronic ulcer of other part of right lower leg limited to breakdown of skin | CPT/HCPCS: 29581 ==

== ENCOUNTER 2019-08-22 11:12 | Outpatient (CLI) | payer MEDICAID, SELFPAY | END 2019-08-22 11:13 | disposition home or self-care (01) | LOC: WOUND 11:14 | PROVIDERS: PCP Internal Medicine; Visit Provider Surgery | DX: Z51.89 Encounter for other specified aftercare (principal) | CPT/HCPCS: 29581 ==

== ENCOUNTER 2019-08-25 13:04 | Outpatient (RCR) | payer MEDICAID, SELFPAY | END 2019-09-16 23:59 | disposition home or self-care (01) | LOC: WOUND 13:04 | PROVIDERS: PCP Internal Medicine; Visit Provider Surgery | DX: I87.2 Venous insufficiency (chronic) (peripheral) (principal); L97.811 Non-pressure chronic ulcer of other part of right lower leg limited to breakdown of skin | CPT/HCPCS: 11042; 11045 ==

== ENCOUNTER 2019-08-29 10:50 | Outpatient (CLI) | payer MEDICAID, SELFPAY | END 2019-08-29 10:51 | disposition home or self-care (01) | LOC: WOUND 10:54 | PROVIDERS: PCP Internal Medicine; Visit Provider Emergency Medicine | DX: Z51.89 Encounter for other specified aftercare (principal) | CPT/HCPCS: 29581 ==

== ENCOUNTER 2019-08-31 10:32 | Outpatient (CLI) | payer MEDICAID, SELFPAY ==
--- NOTE | 2019-08-31 12:23 | PFTS_ITS ---
Date of Study:08/31/19 Date of Dictation: MECHANICS: Forced vital capacity (FVC) is reduced. Forced expiratory volume in one second (FEV1) is reduced. FEV1/FVC is normal. FLOW VOLUME LOOP: Narrow with scooping. LUNG VOLUMES: Total lung capacity (TLC) is normal. Residual volume (RV) is increased. DIFFUSING CAPACITY FOR CARBON MONOXIDE: Mildly reduced. INTERPRETATION: The pulmonary function tests are consistent with nonspecific ventilatory limitation. The spirometry is consistent with moderate restriction however the total lung capacity is normal. This is likely secondary to a combination of obstructive and restrictive defect. Elevated residual volume is likely secondary to small airways disease. Lung volumes are consistent with air trapping. Gas exchange (DLCO) is mildly reduced. MTDD
== END 2019-08-31 10:33 | disposition home or self-care (01) ==
LOC: RAD 10:33
PROVIDERS: PCP Internal Medicine; Visit Provider Internal Medicine Critical Care Medicine
DX: J44.9 Chronic obstructive pulmonary disease, unspecified (principal)
CPT/HCPCS: 94060; 94726; 94729; J7611

== ENCOUNTER 2019-09-05 08:26 | Outpatient (CLI) | payer MEDICAID, SELFPAY | END 2019-09-05 08:27 | disposition home or self-care (01) | LOC: WOUND 08:27 | PROVIDERS: PCP Internal Medicine; Visit Provider Emergency Medicine | DX: I87.2 Venous insufficiency (chronic) (peripheral) (principal); L97.811 Non-pressure chronic ulcer of other part of right lower leg limited to breakdown of skin | CPT/HCPCS: 11042; 11045 ==

== ENCOUNTER 2019-09-07 08:50 | Day surgery (SDC) | payer MEDICAID, SELFPAY ==
[2019-09-05 13:08] VITALS: BMI 48.1
[2019-09-07 09:36] VITALS: BP 170/103; PULSE 70; RESP 18; TEMP 36.5; O2SAT 99
[2019-09-07] MEDS: sodium chloride 0.9% 1,000 ML 30 ML IV (09:36)
[2019-09-07 09:38] LABS: Glucose Point of Care 171 mg/dL (70-110)
--- NOTE | 2019-09-07 09:49 | ANES.PREANE2 ---
Pre-Anesthetic Assessment Pre-Anesthetic Assessment: Height/Weight: Height 1.68 m Weight 135.171 kg Temp Pulse Resp BP Pulse Ox 97.7 F 70 18 170/103 99 09/07/19 09:36 09/07/19 09:36 09/07/19 09:36 09/07/19 09:36 09/07/19 09:36 Preop Diagnosis: Iron deficiency anemia Proposed Procedure: Operation Date: 09/07/19 10:20 Proposed Procedures p EGD 37843 49065 D64.9 Z12.11(Not Applicable) - Kenyon Leavitt MD s Colonoscopy(Not Applicable) - Kenyon Leavitt MD Familial anesthetic complications: None Was Beta Rogers taken within 24 hours: N/A Last intake: Intake Last Liquid Date 09/06/19 Last Liquid Time 20:00 Last Solid Date 09/05/19 Last Solid Time 17:00 Social: Social History: No alcohol and No tobacco Exam: Pre-Anes Outpt Exam: alert, oriented x 3, clear to auscultation bilaterally and regular rate & rhythm Airway: Cervical ROM: WNL MP: 2 Dentition: False Pulmonary: Pulmonary: COPD (2 L NC continously) and Sleep apnea (bipap at night) CV/HEM: CV/HEM: Afib, CAD (stents 2018 on aspirin), CHF, HTN and TX : : Chronic renal Insufficiency Metabolic: Metabolic: DM, Hyperlipidemia and Morbid obesity Musc/skel: Musc/skel: None reported Neuropsych: Neuropsych: None reported Anesthetic Plan: ASA status: 3 Anesthesia: MAC Risk of > 500 ml blood loss (7ml/kg in children): No PFSH Anesthesia PFSH: Medical History (Updated 08/18/19 @ 11:08 by Angella Tariq MD) Anemia Atrial fibrillation, chronic Diabetes Diastolic heart failure History of breast cancer Hypertension Screen for colon cancer Surgical History History of carpal tunnel release of both wrists History of coronary angioplasty with insertion of stent History of coronary artery balloon dilation History of lumpectomy Family History Denies family history of Anesthesia complication Bleeding disorder Social History Smoking and tobacco status: former smoker Quit status (tobacco): has quit using tobacco Year quit tobacco: 2016 - 2PPD x 40 Years Alcohol intake: never Lives independently: Yes Household members: spouse Marital status: Current occupational status: retired History of recent travel: No Current gender identity: Female Data Anesthesia Other Labs: Laboratory Results - last 48 hr 09/07/19 09:35 POC Glucose 171 Cardiac Studies: No Data to Display
--- NOTE | 2019-09-07 10:27 | W.PM.OPSUD ---
Surgery/Procedure H&P Update DATE OF PROCEDURE: September 07, 2019 DATE H&P PERFORMED: 08/11/19 H&P UPDATE INFORMATION: I have reviewed H&P completed within last 30 days, I have examined patient prior to procedure and No changes to prior documentation PREOP DIAGNOSIS: Iron deficiency anemia PRIMARY INDICATION FOR PROCEDURE: The same PLANNED PROCEDURE: Operation Date: 09/07/19 10:20 Proposed Procedures p EGD [id number] D64.9 Z12.11(Not Applicable) - Kenyon Leavitt MD s Colonoscopy(Not Applicable) - Kenyon Leavitt MD
[2019-09-07 11:47] VITALS: BP 125/102; PULSE 71; RESP 18; TEMP 36.3; O2SAT 99
[2019-09-07 12:04] VITALS: BP 190/88; PULSE 71; RESP 18; O2SAT 95
[2019-09-08 14:16] LABS: H. Pylori / CLO Test Negative
== END 2019-09-07 12:15 | disposition home or self-care (01) ==
PROVIDERS: PCP Internal Medicine; Visit Provider Surgery
PROC: 0DJ08ZZ Inspection of Upper Intestinal Tract, Via Natural or Artificial Opening Endoscopic (ICD-10-PCS; CPT 43235; principal; 2019-09-07 10:15)
PROC: 0DJD8ZZ Inspection of Lower Intestinal Tract, Via Natural or Artificial Opening Endoscopic (ICD-10-PCS; CPT 45378; 2019-09-07 10:15)
DX: D50.9 Iron deficiency anemia, unspecified (principal); K57.30 Diverticulosis of large intestine without perforation or abscess without bleeding; K63.5 Polyp of colon; K62.1 Rectal polyp; J44.9 Chronic obstructive pulmonary disease, unspecified; Z99.81 Dependence on supplemental oxygen; G47.30 Sleep apnea, unspecified; I48.91 Unspecified atrial fibrillation; I25.10 Atherosclerotic heart disease of native coronary artery without angina pectoris; Z95.5 Presence of coronary angioplasty implant and graft; Z79.82 Long term (current) use of aspirin; I25.2 Old myocardial infarction; I11.0 Hypertensive heart disease with heart failure; I50.30 Unspecified diastolic (congestive) heart failure; E11.9 Type 2 diabetes mellitus without complications; E78.5 Hyperlipidemia, unspecified; E66.01 Morbid (severe) obesity due to excess calories; Z68.42 Body mass index [BMI] 45.0-49.9, adult; Z85.3 Personal history of malignant neoplasm of breast; Z87.891 Personal history of nicotine dependence
CPT/HCPCS: 12345; 36416; 43235; 45385; 82962; 87077; 88305; J2704; J7030

== ENCOUNTER 2019-09-12 09:18 | Outpatient (CLI) | payer MEDICAID, SELFPAY ==
--- NOTE | 2019-09-12 09:23 | MM_ITS ---
WS: [id number] DIAGNOSTIC BILATERAL DIGITAL MAMMOGRAM WITH CAD HISTORY: HX OF BREAST CA COMPARISON: 09/09/2018, 09/08/2017 and 07/31/2016 TECHNIQUE: Bilateral craniocaudad, mediolateral oblique, and mediolateral views are submitted. Comput er aided detection utilized. Breast composition: There are scattered areas of fibroglandular density. Volume loss LEFT breast with trabecular thickening. Surgical clips are noted in the posterior superior LEFT breast. No recurrent mass or calcifications. MM/[place] [id number] IMPRESSION: BI-RADS: 2-Benign FOLLOW UP: 1 Year Follow-up
== END 2019-09-12 09:19 | disposition home or self-care (01) ==
LOC: RADSHAW 09:19
PROVIDERS: PCP Internal Medicine; Visit Provider Internal Medicine Hematology & Oncology
DX: Z85.3 Personal history of malignant neoplasm of breast (principal)
CPT/HCPCS: 77066

== ENCOUNTER 2019-09-12 13:41 | Outpatient (CLI) | payer MEDICAID, SELFPAY | END 2019-09-12 13:42 | disposition home or self-care (01) | LOC: WOUND 13:43 | PROVIDERS: PCP Internal Medicine; Visit Provider Emergency Medicine | DX: I87.2 Venous insufficiency (chronic) (peripheral) (principal); L97.811 Non-pressure chronic ulcer of other part of right lower leg limited to breakdown of skin | CPT/HCPCS: 11042; 11045; 87070; 87077; 87176; 87186; 87205 ==

== ENCOUNTER 2019-09-19 13:36 | Outpatient (CLI) | payer MEDICAID, SELFPAY | END 2019-09-19 13:37 | disposition home or self-care (01) | LOC: WOUND 13:42 | PROVIDERS: PCP Internal Medicine; Visit Provider Nurse Practitioner Family | DX: I87.2 Venous insufficiency (chronic) (peripheral) (principal); L97.811 Non-pressure chronic ulcer of other part of right lower leg limited to breakdown of skin | CPT/HCPCS: 99212; A6545 ==

== ENCOUNTER 2019-10-17 11:57 | Outpatient (CLI) | payer MEDICAID, SELFPAY ==
[2019-10-17 12:44] LABS: Basophils # 0.1 10^3/uL (0.0-0.1); Basophils % 0.7 %; Eosinophils # 0.3 10^3/uL (0.0-0.8); Eosinophils % 2.6 %; Hematocrit 35.6 % (37.0-47.0); Hemoglobin 10.8 g/dL (11.5-15.3); Lymphocytes # 1.6 10^3/uL (0.8-4.8); Lymphocytes % 15.8 %; Mean Corpuscular HGB Conc 30.3 g/dL (30.0-36.0); Mean Corpuscular Hemoglobin 25.5 pg (28.0-34.0); Monocytes # 0.6 10^3/uL (0.2-0.9); Monocytes % 5.8 %; Neutrophils # 7.68 10^3/uL (1.8-7.7); Neutrophils % 74.7 %; Nucleated Red Blood Cells % 0 %; Platelet Count 323 10^3/cmm (130-400); Red Blood Count 4.24 10^6/uL (4.1-5.3); Red Cell Distribution Width 18.1 % (12.1-15.1); White Blood Count 10.3 10^3/uL (4.0-10.0)
[2019-10-17 13:05] LABS: Ferritin 48 ng/mL (15-150); Iron 44 ug/dL (37-145); Percent Saturation 15.7 % (20-50); Total Iron Binding Capacity 280 mcg/dl; Unsaturated Iron Binding 236 ug/dL (112-347)
[2019-10-17 13:20] LABS: Folate Level 8.5 ng/mL (4.8-37.3); Vitamin B12 500 pg/mL (232-1245)
== END 2019-10-17 11:58 | disposition home or self-care (01) ==
LOC: ONCMED 11:58
PROVIDERS: PCP Internal Medicine; Visit Provider Internal Medicine Hematology & Oncology
DX: C50.512 Malignant neoplasm of lower-outer quadrant of left female breast (principal); E11.9 Type 2 diabetes mellitus without complications; E78.5 Hyperlipidemia, unspecified; J44.9 Chronic obstructive pulmonary disease, unspecified; M19.90 Unspecified osteoarthritis, unspecified site
CPT/HCPCS: 82607; 82728; 82746; 83540; 83550; 85025

== ENCOUNTER 2019-10-18 05:48 | Outpatient (CLI) | payer MEDICAID, SELFPAY ==
--- NOTE | 2019-10-21 13:15 | ONC FU_ITS ---
Dr. Pulido follow up note Patient: Seema Del Rosario Unit #: [id number]: 1955 Dicatated By: Abraham Pulido M.D.Date of Visit:Oct 18, 2019 Telehealth Progress Note The patient has been informed that the visit may not be secure and acknowledged the information. I have explained the option of participating in a telephone or video visit during the COVID-19 public health emergency to the patient. After being given an opportunity to ask questions about and discuss this type of visit, the patient verbally consented to proceeding with the telephone/video visit. the patient understands that this service replaces an office visit and they may be billed and /or responsible for any applicable copayments History of Present Illness: Mrs. Seema Del Rosario, 63-year-old female with new diagnosed left breast cancer status post left partial mastectomy with axillary sentinel lymph node biopsy performed on 09/01/2016 final path report Infiltrating ductal carcinoma grade 1 with clear surgical margins tumor dimensions 3.6 x 1.5 cm positive lymphovascular space invasion Left axilla lymph node biopsy #1 showed benign lymph node no metastatic tumor identified Left axilla lymph node biopsy #2 benign adipose tissue no lymph node identified breast cancer prognostic profile showed Ki-67 analysis 4% favorable Estrogen receptor assay 100% Progesterone receptor assay 83% HER-2/bessy status negative by IHC and FISH over amplification As per patient in the month of she started having chest pain and went to see her primary care doctor and his CTA was done to rule out PE and it came back negative but there was a incidental finding of a left breast lump seen on the CT scan mammogram and sonogram was done and subsequently she underwent ultrasound-guided biopsy of left breast found to have infiltrating ductal carcinoma, and a further on 09/01/2016 she underwent partial mastectomy. Postop. Complicated by development of hematoma due to aspirin now resolved . She tried Arimidex for 1 week and developed joint pains and muscle aches just prior to recent hospital admission and then she stopped taking Arimidex Switched to Aromasin, tolerating well lower extremity pain/discomfort recently underwent great saphenous vein ablation of left side for symptomatic varicose vein. As per patient now procedure didn't help her much. In December 2017 she also had venous Doppler study of lower extremity that showed no DVTs but lower extremity arterial study showed evidence of peripheral vascular disease.Repeat venous Doppler study done on 07/16/2018 showed no evidence of DVT in left lower extremity occasional hot flashes otherwise tolerating Aromasin well Mammogram done on 09/09/2018 shows BI-RADS 2 benign Evaluated via telephone, patient denies any specific complaints, no fever chills, no nausea or vomiting, no diarrhea constipation, tolerating oral iron well, denies any melena or hematochezia but darker stools because of oral iron. Patient said she was evaluated by Dr. Tariq, underwent PFTs and she was given inhaler, with that she is feeling much better no other complaints except. Occasional hot flashes otherwise tolerating Aromasin well along with vitamin D and calcium Medications: Advair Diskus 1 puff(s) (of 250-50 mcg/dose) Aerosol Powder, Breath Activated Inhalation b.i.d., Albuterol Sulfate 2 puff(s) (of 108 (90 base) mcg/act) Aerosol Powder, Breath Activated Inhalation q 4 hours, Allopurinol 1 Tablet (of 100 mg) Oral daily, Amiodarone HCl 1 Tablet (of 200 mg) Oral daily, AmLODIPine Besylate 1 Tablet (of 10 mg) Oral daily, Aspirin EC 1 (325 mg) Tablet, enteric coated Oral daily, cloNIDine HCl 1 Tablet Oral daily, Exemestane 1 (25 mg) Tablet Oral daily, Gabapentin 1 Capsule (of 300 mg) Oral t.i.d., HumaLOG 35 Units Subcutaneous t.i.d., Isosorbide Mononitrate ER 1.5 Tablet (of 60 mg) Tablet SR 24 HR Oral every am, lasix 1 Tablet (of 80 mg) b.i.d., Simvastatin 1 (10 mg) Tablet Oral at bedtime, Spiriva HandiHaler 1 Capsule (of 18 mcg) Inhalation daily, Tresiba FlexTouch 100 Units Subcutaneous daily, Victoza 1.2 mg (of 0.6 ) Subcutaneous daily, Zoloft 1 Tablet (of 100 mg) Oral daily Allergies: Anastrozole Review of Systems: Review of Systems is not available for this patient. Vital Signs: Vitals are not available for this patient. Performance Status: 0 - Fully active, able to carry on all predisease activities without restrictions. (ECOG) Physical Examination: Respiratory - Denies any shortness of breath or wheezing, Cardiovascular - Denies any palpitation or tachycardia, Gastrointestinal - Denies any abdominal pain or fullness, Extremities - Denies any lower extremity edema. Lab/Imaging: Test performed on Aug 04, 2019 12:35 WBC 10.9 10 3/uL RBC 4.02 10 6/uL HGB 9.4 g/dL HCT 32.4 % MCV 80.6 fL MCH 23.4 pg MCHC 29.0 g/dL RDW 18.4 % Platelet Count 349 10 3/cmm MPV 9.6 fL Neutrophils 8.8 10 3/uL Lymphocytes 1.3 10 3/uL Monocytes 0.5 10 3/uL Eosinophils 0.2 10 3/uL Basophils 0.0 10 3/uL Neutrophil % 81.1 % Lymphocyte % 12.1 % Monocyte % 4.7 % Eosinophil % 1.4 % Basophils % 0.4 % NRBC % 0 % Impression: Infiltrating ductal carcinoma of left breast status post partial mastectomy on 09/01/2016 final path report tumor size 3.6 x 1.5 cm , grade 1 clear margins , sentinel lymph node negative for metastatic disease, ER/DC positive HER-2/bessy negative by IHC and over amplification by FISH. T2, N0 ( sentinal node) ,Mx stage IIA Oncotype DX low risk recurrence score 3 Started on Arimidex on 10/16/2016 took it for 1 week then discontinued because of joint pains and muscle aches Started on exemestane 25 mg daily on 01/22/2017. For 5 years Recent Episode of atrial fibrillation status post cardioversion Newly diagnosed anemia normocytic normochromic ? etiology , could be due to diagnostic phlebotomy for lab workup during hospitalization, or blood loss due to anticoagulation for A. fib, patient denies any melena hematochezia. Follow-up mammogram done on 09/08/2017 showed BI-RADS 2-benign. Venous Doppler study of lower extremity done in December 2017 showed no evidence of DVTs but arterial study showed peripheral vascular disease. status post left great saphenous vein ablation Follow-up mammogram done on September 12, 2019 showed BI-RADS 2, benign EGD done on September 07, 2019 showed reflux disease, moderate hiatal hernia without obstruction no evidence of bleeding and colonoscopy done on September 07, 2019 showed 2 mm polyp in descending colon and one in rectum both were removed. No evidence of malignancy or bleeding Plan: Discussed with patient regarding her labs white blood count 10.3 hemoglobin 10.8 g compared to 9.4 on August 04, 2019 hematocrit 35.6 platelets 323,000 iron studies shows ferritin 48 compared to 24 earlier iron 44 B12 500 Mammogram done on September 12, 2019 showed BI-RADS 2, benign and her EGD done on September 07, 2019 showed reflux esophagitis moderate hiatal hernia without obstruction and colonoscopy done same day showed 2 mm polyp in distal descending colon and second polyp size 2 mm in the rectum both were removed. Clinically, patient doing well with no signs symptom suggestive of disease progression, tolerating her Aromasin along with vitamin D and calcium supplement well with occasionally hot flashes. We will continue with same as far as anemia is concerned, her hemoglobin is improving while on oral iron, her iron studies shows improvement in iron stores, will continue same and recently underwent EGD colonoscopy shows no evidence of GI bleed or malignancy, will continue same she will return to clinic in 2 months with CBC and iron studies. Time spent on the phone 6 minutes Signed By: Abraham Pulido M.D. <<Signature on File>>
== END 2019-10-18 05:49 | disposition home or self-care (01) ==
LOC: ONCMED 05:49
PROVIDERS: PCP Internal Medicine; Visit Provider Internal Medicine Hematology & Oncology
DX: C50.512 Malignant neoplasm of lower-outer quadrant of left female breast (principal); Z17.0 Estrogen receptor positive status [ER+]; Z79.811 Long term (current) use of aromatase inhibitors; D64.9 Anemia, unspecified; K44.9 Diaphragmatic hernia without obstruction or gangrene; Z86.010 Personal history of colon polyps; Z87.19 Personal history of other diseases of the digestive system

== ENCOUNTER 2019-12-23 14:49 | Outpatient (CLI) | payer MEDICAID, SELFPAY ==
--- NOTE | 2019-12-23 14:54 | USCV_ITS ---
Seema Del Rosario Age: 64 Gender: F : 1955 Exam Date: 12/23/2019 14:54 Ordering Phys: Jeanine Solares MD Technologist: Jennifer Mathew Exam Location: [facility] [place] Indication: PAROXYSMAL ATRIAL FIB EDEMA CAD BP: 140 / 62 HR: 66 Rhythm: Other Technical Quality: Very technically difficult study MEASUREMENTS (Male / Female) Normal Values 2D ECHO LV Diastolic Diameter PLAX 4.4 cm 4.2 - 5.9 / 3.9 - 5.3 cm LV Systolic Diameter PLAX 3.8 cm LV Chamber Size 3.6 cm IVS Diastolic Thickness 1.4 cm 0.6 - 1.0 / 0.6 - 0.9 cm IVS Systolic Thickness 1.7 cm LVPW Diastolic Thickness 1.9 cm 0.6 - 1.0 / 0.6 - 0.9 cm LVPW Systolic Thickness 2.2 cm RV Chamber Size 3.1 cm LVOT Diameter 2.1 cm LV Ejection Fraction 2D Teich 13.5 % LV Ejection Fraction MOD 2C 62.6 % LV Ejection Fraction 2C AL 64.0 % LA Diameter 4.9 cm LA Width 3.0 cm LA Height 4.7 cm RA Width 3.9 cm RA Height 4.2 cm Aorta at Sinotubular Diameter 3.0 cm M-MODE LV Diastolic Diameter MM 4.3 cm 4.2 - 5.9 / 3.9 - 5.3 cm LV Systolic Diameter MM 3.3 cm LV Ejection Fraction MM Teich 46.3 % IVS Diastolic Thickness MM 1.4 cm 0.6 - 1.0 / 0.6 - 0.9 cm IVS Systolic Thickness MM 1.7 cm LVPW Diastolic Thickness MM 1.6 cm 0.6 - 1.0 / 0.6 - 0.9 cm LVPW Systolic Thickness MM 2.0 cm RV Diastolic Diameter MM 2.0 cm Aortic Annulus Diameter 3.0 cm LA Ao Ratio MM 1.9 DOPPLER AV Peak Velocity 194.7 cm/s LVOT Peak Velocity 89.7 cm/s AV Area Cont Eq vti 1.8 cm squared AV Area Cont Eq pk 1.6 cm squared MV Area PHT 3.0 cm squared Mitral E to A Ratio 1.0 MV E' Velocity 50.0 cm/s Mitral E to MV E' Ratio 10.1 Mitral E to LV E' Lateral Ratio 10.7 Mitral E to LV E' Septal Ratio 9.6 TR Peak Velocity 193.5 cm/s TR Peak Gradient 15.0 mmHg TR Mean Velocity 144.0 cm/s TR Mean Gradient 9.2 mmHg TR Velocity Time Integral 61.0 cm Right Atrial Pressure 3.0 mmHg Pulmonary Artery Systolic Pressu 18.0 mmHg PV Peak Velocity 98.0 cm/s RV Acceleration Time 0.2 s RV Ejection Time 0.3 s RV AcT/ET 0.5 FINDINGS Left Ventricle Normal left ventricular cavity size. Normal left ventricular systolic function. No regional wall motion abnormalities. Left ventricular ejection fraction is estimated at 60 %. Grade I/IV diastolic dysfunction (abnormal relaxation filling pattern), normal to mildly elevated filling pressures. Right Ventricle The right ventricle is normal in size and function. Right Atrium The right atrium is normal in size. Left Atrium The left atrium is normal in size. Mitral Valve Severely thickened mitral valve. Severe mitral annular calcification. No mitral valve stenosis. No mitral valve regurgitation. Aortic Valve Moderate aortic valve calcification. Moderate aortic valve stenosis, mean gradient 8.3 mmHg, JORGE 1.8 cm squared. No aortic valve regurgitation. Tricuspid Valve Structurally normal tricuspid valve without significant stenosis or regurgitation. Pulmonary artery systolic pressure is normal. Pulmonic Valve Structurally normal pulmonic valve without significant stenosis. There is no pulmonic regurgitation. Pericardium Normal pericardium without effusion. Aorta Normal ascending aorta dimension. CONCLUSIONS 1-Normal left ventricular cavity size. Normal left ventricular systolic function. No regional wall motion abnormalities. Left ventricular ejection fraction is estimated at 60 %. Grade I/IV diastolic dysfunction (abnormal relaxation filling pattern), normal to mildly elevated filling pressures. 2-Moderate aortic valve calcification. Moderate aortic valve stenosis, mean gradient 8.3 mmHg, JORGE 1.8 cm squared. No aortic valve regurgitation. 3-Severely thickened mitral valve. Severe mitral annular calcification. No mitral valve stenosis. No mitral valve regurgitation. 4-There is no pericardial effusion. 5-Pulmonary artery systolic pressure is within normal limits. 6-Right atrial pressure is around 5 mm of mercury. 7-No significant change since the prior echocardiogram study of 08/13/2018. Ried Lopez MD (Electronically Signed) Final Date: 26 December 2019 16:29 S
== END 2019-12-23 14:50 | disposition home or self-care (01) ==
LOC: RAD 14:52
PROVIDERS: PCP Internal Medicine; Visit Provider Internal Medicine
DX: I48.0 Paroxysmal atrial fibrillation (principal); R60.0 Localized edema; I25.10 Atherosclerotic heart disease of native coronary artery without angina pectoris; I08.0 Rheumatic disorders of both mitral and aortic valves
CPT/HCPCS: 93306

== ENCOUNTER 2020-01-06 14:13 | Outpatient (CLI) | payer MEDICAID, SELFPAY | END 2020-01-06 14:14 | disposition home or self-care (01) | LOC: WOUND 14:14 | PROVIDERS: PCP Internal Medicine; Visit Provider Surgery | DX: E11.622 Type 2 diabetes mellitus with other skin ulcer (principal); L97.322 Non-pressure chronic ulcer of left ankle with fat layer exposed; L97.821 Non-pressure chronic ulcer of other part of left lower leg limited to breakdown of skin; I96 Gangrene, not elsewhere classified; Z87.891 Personal history of nicotine dependence | CPT/HCPCS: 11042; G0463 ==

== ENCOUNTER 2020-01-20 14:23 | Outpatient (CLI) | payer MEDICAID, SELFPAY | END 2020-01-20 14:24 | disposition home or self-care (01) | LOC: WOUND 14:23 | PROVIDERS: PCP Internal Medicine; Visit Provider Surgery | DX: E11.622 Type 2 diabetes mellitus with other skin ulcer (principal); L97.322 Non-pressure chronic ulcer of left ankle with fat layer exposed; L97.822 Non-pressure chronic ulcer of other part of left lower leg with fat layer exposed; L97.812 Non-pressure chronic ulcer of other part of right lower leg with fat layer exposed | CPT/HCPCS: 11042 ==

== ENCOUNTER 2020-01-23 13:04 | Outpatient (CLI) | payer MEDICAID, SELFPAY | END 2020-01-23 13:05 | disposition home or self-care (01) | LOC: WOUND 13:05 | PROVIDERS: PCP Internal Medicine; Visit Provider Nurse Practitioner Family | DX: E11.622 Type 2 diabetes mellitus with other skin ulcer (principal); L97.329 Non-pressure chronic ulcer of left ankle with unspecified severity | CPT/HCPCS: 29581 ==

== ENCOUNTER 2020-01-25 14:38 | Emergency (ER) | payer MEDICAID, SELFPAY ==
[2020-01-25] VITALS (8 sets, daily range): BP systolic 129–210; BP diastolic 72–101; PULSE 80–87; RESP 14–22; TEMP 36.9; O2SAT 95–100; BMI 48.4
--- NOTE | 2020-01-25 14:42 | CTR_ITS ---
PROCEDURE INFORMATION: Exam: CT Abdomen And Pelvis With Contrast Exam date and time: 01/25/2020 2:48 PM Age: 64 years old Clinical indication: Abdominal pain; Generalized; Prior surgery; Surgery type: Breast, stent, heart balloon; Additional info: Abd pain TECHNIQUE: Imaging protocol: Computed tomography of the abdomen and pelvis with intravenous contrast. Radiation optimization: All CT scans at this facility use at least one of these dose optimization techniques: automated exposure control; mA and/or kV adjustment per patient size (includes targeted exams where dose is matched to clinical indication); or iterative reconstruction. Contrast material: VISIPAQUE; Contrast volume: 95 ml; Contrast route: INTRAVENOUS (IV); COMPARISON: US Renal Kidney Structu* [id number] 08/14/2018 7:26 AM RADIATION DOSE METRICS: Total DLP (mGy-cm): 1856.13 FINDINGS: Lungs: Right lobe measures approximately 22 cm in height. Liver: There is no focal abnormality within the liver. There is mild enlargement of the liver. Gallbladder and bile ducts: There is some dependent density in the gallbladder which suggest possible cholelithiasis. Pancreas: Normal. No ductal dilation. Spleen: The spleen is normal. Adrenal glands: There is a benign-appearing 2 cm sized lesion of the left adrenal gland containing macroscopic fat such as a myelolipoma. There is a 5 cm indeterminate lesion of the right adrenal gland. In patient with no cancer history, consider resection. In patient with cancer history, consider biopsy or PET-CT. (CisseSasha White, ACR White Paper, 2017) Kidneys and ureters: There is a 1 cm cortical cyst arising from the upper pole right kidney as seen on prior ultrasound. There is a small hypodensity in the lower pole of the left kidney, probably a cyst but too small to characterized by CT scan. There is no evidence of hydronephrosis. Stomach and bowel: There is no evidence of colitis/diverticulitis. Appendix: Not identified Intraperitoneal space: Unremarkable. No free air. No significant fluid collection. Vasculature: The aorta demonstrates mild atherosclerotic calcification. There is no evidence of an abdominal aortic aneurysm. Lymph nodes: There is no evidence of lymphadenopathy. Urinary bladder: Unremarkable as visualized. Reproductive: Unremarkable as visualized. Bones/joints: The lumbar spine demonstrates marked degenerative changes at multiple levels. There is mild scoliosis concave to the right. Soft tissues: There is some mild skin thickening in some areas of the abdominal wall. Correlation with clinical findings is suggested. There is also some mild edema in the lower end of the pannus. There is some focal skin thickening in the inferior aspect of the left breast only partly included on this examination which is consistent with the history of prior breast surgery. CT/CT abdomen pelvis w con* [id number] IMPRESSION: 1. Large right indeterminate adrenal mass. Further evaluation is suggested. 2. Possible cholelithiasis 3. Mild subcutaneous edema and skin thickening in the anterior abdominal wall. Correlation with physical examination findings is suggested. COMMENTS: Consistent with the [employer]'s Incidental Findings Committee white paper (J Am Semaj Radiol 2018): Any incidental renal lesion less than 1 cm or classified as too small to characterize, or any incidental cystic renal lesion characterized as simple-appearing, is likely benign. No follow-up imaging is recommended for these lesions per consensus recommendations based on imaging criteria. Radiation Dose CTDIVOL = (mGy): DLP = 1856.13 (mGy-cm)
--- NOTE | 2020-01-25 14:45 | W.ED.ABDPA2 ---
HPI - Abdominal Pain General: Chief Complaint: Abdominal Pain Stated Complaint: Abd pain/nausea Time Seen by Provider: 01/25/20 14:38 Source: patient and EMS Mode of arrival: EMS Limitations: no limitations History of Present Illness: HPI narrative: 64-year-old female states she been having epigastric abdominal pain over the last 2 days. She states is progressively worsened and is a sharp pain. States pain is now an 8 out of 10. She denies any radiation she has had nausea no vomiting. She had normal bowel movements. She denies any fever. Patient was seen by her PCP yesterday. MD elicited complaint: abdominal pain Onset (ago): day(s) Pain Consistency: constant Location: Epigastric Severity: severe Quality: stabbing Radiation: none Migration to: no migration Exacerbating factors: nothing Relieving factors: nothing Associated Symptoms: Denies chills, dysuria and fever(s) Review of Systems Const: Denies: fever(s), chills, body aches or change in appetite Eyes: Denies: blurry vision or eye discomfort ENMT: Denies: throat pain or dental pain Card: Denies: chest pain Resp: Denies: dyspnea GI: Reports: abdominal pain : Denies: dysuria Musc: Denies: neck pain or back pain Skin/Breast: Denies: rash Neuro: Denies: headache(s) Psych: Denies: depression Archie/Lymph: Denies: easy bruising All/Imm: Denies: urticaria PFSH ED PFSH: Medical History (Updated 01/25/20 @ 17:50 by Mary Aceves MD) Anemia Atrial fibrillation, chronic Diabetes Diastolic heart failure History of breast cancer Hypertension Screen for colon cancer Surgical History History of carpal tunnel release of both wrists History of colonoscopy with polypectomy (~08/2019) brandan david. History of coronary angioplasty with insertion of stent History of coronary artery balloon dilation History of esophagogastroduodenoscopy (EGD) (~08/2019) brandan david. History of lumpectomy Family History Denies family history of Anesthesia complication Bleeding disorder Social History Smoking and tobacco status: former smoker Quit status (tobacco): has quit using tobacco Year quit tobacco: 2016 - 2PPD x 40 Years Alcohol intake: never Lives independently: Yes Household members: spouse Marital status: Current occupational status: retired History of recent travel: No Current gender identity: Female Physical Exam Const: COMMON NORMALS: no acute distress, patient oriented x3 and healthy appearing HENMT: COMMON NORMALS: normocephalic and atraumatic HEAD & SCALP: normocephalic and atraumatic Eye: COMMON NORMALS: Equal, round and reactive pupils present and EOMs intact bilaterally PUPIL: Yes Equal, round and reactive pupils present Neck/C-Spine: COMMON NORMALS: full ROM and supple Chest: COMMONS NORMALS: normal inspection of the chest and normal palpation of entire chest wall Resp: COMMON NORMALS: normal respiratory effort, No retractions, No use of accessory muscles and clear to auscultation bilaterally AUSCULTATION: clear to auscultation bilaterally Cardio: COMMON NORMALS: regular rate, regular rhythm and No murmurs present (Cardio) RATE: regular rate RHYTHM: regular rhythm GI: COMMON NORMALS: Normal to inspection, nondistended, normoactive bowel sounds present, Soft to palpation and no masses PALPATION: Yes Soft to palpation and Yes Tenderness to palpation present (GI) (Epigastric) Extremity: COMMON NORMALS: normal to inspection and full ROM Neuro: COMMON NORMALS: patient oriented x3, moves all extremities and no focal motor deficits Psych: COMMON NORMALS: mental status grossly normal, Normal thought process present and cooperative THOUGHT PROCESS: Normal thought process present Skin: COMMON NORMALS: no rashes or lesions noted and no wounds GENERAL SKIN EXAM: no rashes or lesions noted Course Vital Signs: Vital signs: Vital Signs Temperature 98.5 F 01/25/20 14:39 Pulse Rate 80 01/25/20 17:30 Respiratory Rate 17 01/25/20 17:30 Blood Pressure 129/101 01/25/20 17:30 Pulse Oximetry 95 01/25/20 17:30 MDM - Abdominal Pain MDM Narrative: Medical decision making narrative: Review presents with abdominal pain that is much improved currently. I went over her CT findings that showed adrenal mass along with no other acute surgical findings. Patient blood work here is normal does have a UTI. Abdominal exam at discharge benign. Will place patient on pain meds along with antibiotics. She is to return if worsening. She is to follow-up for oncologist Dr. Pulido as well. To go over the adrenal mass. Lab Data: Labs: Lab Results 01/25/20 01/25/20 01/25/20 Range/Units 14:30 14:30 17:00 WBC 10.9 H (4.0-10.0) 10^3/ uL RBC 4.35 (4.1-5.3) 10^6/u L Hgb 11.4 L (11.5-15.3) g/dL Hct 37.3 (37.0-47.0) % MCV 85.7 (81-99) fL MCH 26.2 L (28.0-34.0) pg MCHC 30.6 (30.0-36.0) g/dL RDW 15.0 (12.1-15.1) % Plt Count 428 H (130-400) 10^3/c mm MPV 9.3 (7.4-10.4) fL Neut % (Auto) 81.8 % Lymph % (Auto) 12.0 % Latimer % (Auto) 5.1 % Eos % (Auto) 0.1 % Baso % (Auto) 0.5 % Neut # (Auto) 8.94 H (1.8-7.7) 10^3/u L Lymph # (Auto) 1.3 (0.8-4.8) 10^3/u L Latimer # (Auto) 0.6 (0.2-0.9) 10^3/u L Eos # (Auto) 0.0 (0.0-0.8) 10^3/u L Baso # (Auto) 0.1 (0.0-0.1) 10^3/u L Nucleated RBC % (a uto) 0 % Nucleated RBCs # 0.0 /100WBC Sodium 140 (136-145) mmol/L Potassium 3.1 L (3.5-5.1) mmol/L Chloride 98 (98-107) mmol/L Carbon Dioxide 28 (22-29) mmol/L Anion Gap 17.1 (5-19) BUN 21 (8-23) mg/dL Creatinine 1.2 H (0.5-0.9) mg/dL GFR Calculation 45.2 L (90-130) mL/min Glucose 188 H (65-115) mg/dL Calculated Osmolal ity 298 H (285-295) mOsm/k g Calcium 10.2 (8.5-10.5) mg/dL Total Bilirubin 0.5 (0.15-1.2) mg/dL AST 18 (0-32) U/L ALT 14 (0-33) U/L Alkaline Phosphata se 87 (35-105) IU/L Total Protein 8.1 (6.6-8.7) g/dL Albumin 3.8 (3.5-5.2) g/dL Globulin 4.3 (1.3-4.6) g/dL Lipase 23 (13-60) U/L Urine Color Straw (Yellow) Urine Appearance Clear (CLEAR) Urine pH 9 H (5-7) Ur Specific Gravit y 1.010 (1.005-1.030) Urine Protein 2+ H (Negative) Urine Glucose (UA) Norm (Normal) Urine Ketones Negative (Negative) Urine Blood 3+ H (Negative) Urine Nitrate Negative (Negative) Urine Bilirubin Neg (Negative) Prot Sulfosalicyli c Acd Positive (Negative) Urine Urobilinogen Norm (Negative) mg/dL Ur Leukocyte Tyra ase Negative (Negative) Urine RBC 15-25 H (0-2) /hpf Urine WBC 0-4 H (0-5) /hpf Ur Squamous Epith Cells 0-4 H (0-5) /hpf Amorphous Sediment Not Reportable Urine Bacteria 2+ H (NONE) /hpf Imaging Data ^: CT Abd/Pel: Radiologist's impression: [address] [address] [address] Scan Report Signed Patient: Seema Del Rosario Unit #: [id number] : 1955 Age/Sex: 64 / F ADM Date: 01/25/20 Loc: ER Room/Bed: Attending Dr: Ordering Provider/Ordering MD: Mary Aceves MD Date of Service: 01/25/20 Procedure(s): CT abdomen pelvis w con* [id number] Accession Number(s): [id number] Report Number: [id number] PROCEDURE INFORMATION: Exam: CT Abdomen And Pelvis With Contrast Exam date and time: 01/25/2020 2:48 PM Age: 64 years old Clinical indication: Abdominal pain; Generalized; Prior surgery; Surgery type: Breast, stent, heart balloon; Additional info: Abd pain TECHNIQUE: Imaging protocol: Computed tomography of the abdomen and pelvis with intravenous contrast. Radiation optimization: All CT scans at this facility use at least one of these dose optimization techniques: automated exposure control; mA and/or kV adjustment per patient size (includes targeted exams where dose is matched to clinical indication); or iterative reconstruction. Contrast material: VISIPAQUE; Contrast volume: 95 ml; Contrast route: INTRAVENOUS (IV); COMPARISON: US Renal Kidney Structu* [id number] 08/14/2018 7:26 AM RADIATION DOSE METRICS: Total DLP (mGy-cm): 1856.13 FINDINGS: Lungs: Right lobe measures approximately 22 cm in height. Liver: There is no focal abnormality within the liver. There is mild enlargement of the liver. Gallbladder and bile ducts: There is some dependent density in the gallbladder which suggest possible cholelithiasis. Pancreas: Normal. No ductal dilation. Spleen: The spleen is normal. Adrenal glands: There is a benign-appearing 2 cm sized lesion of the left adrenal gland containing macroscopic fat such as a myelolipoma. There is a 5 cm indeterminate lesion of the right adrenal gland. In patient with no cancer history, consider resection. In patient with cancer history, consider biopsy or PET-CT. (Meghan White, ACR White Paper, 2017) Kidneys and ureters: There is a 1 cm cortical cyst arising from the upper pole right kidney as seen on prior ultrasound. There is a small hypodensity in the lower pole of the left kidney, probably a cyst but too small to characterized by CT scan. There is no evidence of hydronephrosis. Stomach and bowel: There is no evidence of colitis/diverticulitis. Appendix: Not identified Intraperitoneal space: Unremarkable. No free air. No significant fluid collection. Vasculature: The aorta demonstrates mild atherosclerotic calcification. There is no evidence of an abdominal aortic aneurysm. Lymph nodes: There is no evidence of lymphadenopathy. Urinary bladder: Unremarkable as visualized. Reproductive: Unremarkable as visualized. Bones/joints: The lumbar spine demonstrates marked degenerative changes at multiple levels. There is mild scoliosis concave to the right. Soft tissues: There is some mild skin thickening in some areas of the abdominal wall. Correlation with clinical findings is suggested. There is also some mild edema in the lower end of the pannus. There is some focal skin thickening in the inferior aspect of the left breast only partly included on this examination which is consistent with the history of prior breast surgery. CT/CT abdomen pelvis w con* [id number] IMPRESSION: 1. Large right indeterminate adrenal mass. Further evaluation is suggested. 2. Possible cholelithiasis 3. Mild subcutaneous edema and skin thickening in the anterior abdominal wall. Correlation with physical examination findings is suggested. EKG Data ^: EKG 1: Attestation: I personally reviewed and interpreted this EKG as follows: EKG interpretation date: 01/25/20 EKG interpretation time: 14:51 Interpretation: nsr hr [address] or twave abnormalities qrs 173 qtc 526 Discharge Plan Discharge Patient Disposition: Home Clinical Impression: Adrenal mass Abdominal pain Qualifiers: Abdominal location: generalized Qualified Code(s): R10.84 - Generalized abdominal pain Acute cystitis Qualifiers: Hematuria presence: without hematuria Qualified Code(s): N30.00 - Acute cystitis without hematuria Condition: Stable Prescriptions: New Ackerman 5-325 mg tablet 1 tab PO Q6H PRN (Reason: pain) Qty: 14 RF: 0 Keflex 500 mg capsule 500 mg PO Q6H 7 Days Qty: 28 RF: 0 ondansetron 4 mg tablet,disintegrating 4 mg PO Q6H PRN (Reason: nausea and vomiting) Qty: 14 RF: 0 No Action tiotropium-olodaterol [Stiolto Respimat] 2.5-2.5 mcg/actuation mist See Rx Instructions .ROUTE .COMPLEX Qty: 4 RF: 3 clonidine HCl 0.1 mg tablet 0.1 mg PO Q8H PRN (Reason: Blood Pressure) RF: 0 amiodarone 200 mg tablet 200 mg PO DAILY@0700 RF: 0 sertraline 100 mg tablet 100 mg PO DAILY RF: 0 simvastatin 10 mg tablet 10 mg PO DAILY@2200 RF: 0 metolazone 5 mg tablet 5 mg PO EVERY OTHER DAY RF: 0 allopurinol 100 mg tablet 100 mg PO DAILY@0700 RF: 0 isosorbide mononitrate 60 mg tablet extended release 24 hr 90 mg PO DAILY@0700 RF: 0 exemestane 25 mg tablet 25 mg PO DAILY@0700 RF: 0 amlodipine 10 mg tablet 10 mg PO DAILY@2199 RF: 0 gabapentin 300 mg capsule 300 mg PO TID@, RF: 0 polyethylene glycol 3350 17 gram/dose powder 17 g PO DAILY PRN (Reason: Constipation) RF: 0 Victoza 2-Jeremy 0.6 mg/0.1 mL (18 mg/3 mL) pen injector 1.2 mg SUBCUT DAILY@0700 RF: 0 potassium chloride 20 mEq tablet extended release 40 meq PO DAILY@07 RF: 0 aspirin 325 mg Tablet 325 mg PO DAILY@07 RF: 0 Hold Instructions: Resume on 09/09/19. Lantus Solostar U-100 Insulin 100 unit/mL (3 mL) insulin pen 50 unit SUBCUT BID@00,2199 RF: 0 pantoprazole 40 mg tablet,delayed release (DR/EC) 40 mg PO DAILY@699 RF: 0 amitriptyline 25 mg tablet 25 mg PO BEDTIME@2199 RF: 0 insulin aspart U-100 [Novolog Flexpen U-100 Insulin] 100 unit/mL (3 mL) insulin pen 35 unit SUBCUT TID@ RF: 0 furosemide 80 mg tablet 80 mg PO BID@00,2199 RF: 0 Discharge Orders: Discharge ED (Routine); Ordered 01/25/20 Ordered By: Mary Aceves Referrals: Jeanine Solares MD [Primary Care Provider] - 1-3 days Discharge Diet: Advance as tolerated Discharge Activity: Resume usual activity Patient Instructions: Abdominal Pain (ED) Coding Level of Care Code ED Golf Cart Attendant for Paog Fwd Exam Comprehensive
[2020-01-25] MEDS: sodium chloride 0.9% 1,000 ML 999 ML IV (14:56)
[2020-01-25] MEDS: ondansetron 2 mg/ML SDV 2 mL 4 MG IVP (14:57)
[2020-01-25] MEDS: morphine 4 mg/mL SDV 1 mL IVP (14:57)
[2020-01-25 14:59] LABS: Basophils # 0.1 10^3/uL (0.0-0.1); Basophils % 0.5 %; Eosinophils % 0.1 %; Hematocrit 37.3 % (37.0-47.0); Hemoglobin 11.4 g/dL (11.5-15.3); Lymphocytes # 1.3 10^3/uL (0.8-4.8); Mean Corpuscular HGB Conc 30.6 g/dL (30.0-36.0); Mean Corpuscular Hemoglobin 26.2 pg (28.0-34.0); Mean Corpuscular Volume 85.7 fL (81-99); Mean Platelet Volume 9.3 fL (7.4-10.4); Monocytes # 0.6 10^3/uL (0.2-0.9); Monocytes % 5.1 %; Neutrophils # 8.94 10^3/uL (1.8-7.7); Neutrophils % 81.8 %; Nucleated Red Blood Cells % 0 %; Platelet Count 428 10^3/cmm (130-400); Red Blood Count 4.35 10^6/uL (4.1-5.3); White Blood Count 10.9 10^3/uL (4.0-10.0)
[2020-01-25 15:40] LABS: Alanine Aminotransferase 14 U/L (0-33); Albumin Level 3.8 g/dL (3.5-5.2); Alkaline Phosphatase 87 IU/L (35-105); Anion Gap 17.1 (5-19); Aspartate Amino Transferase 18 U/L (0-32); Blood Urea Nitrogen 21 mg/dL (8-23); Calcium 10.2 mg/dL (8.5-10.5); Carbon Dioxide 28 mmol/L (22-29); Chloride 98 mmol/L (98-107); Globulin 4.3 g/dL (1.3-4.6); Glomerular Filtration Rate 45.2 mL/min (90-130); Glucose 188 mg/dL (65-115); Lipase 23 U/L (13-60); Osmolality Calculated 298 mOsm/kg (285-295); Potassium 3.1 mmol/L (3.5-5.1); Sodium 140 mmol/L (136-145); Total Bilirubin 0.5 mg/dL (0.15-1.2); Total Protein 8.1 g/dL (6.6-8.7)
[2020-01-25] MEDS: iodixanol 320 mg/mL 100mL Btl IV (15:56)
--- NOTE | 2020-01-25 17:06 | ECG_ITS ---
[facility] Test Date: 2020-01-25 Pat Name: Seema Del Rosario Department: Room: Gender: Female Kier Boiler: : 1955 Requested By: Mary Aceves Order Number: [id number] Jennie MD: Valentin Partida M.D. Measurements Intervals [place] Rate: 82 P: 67 ID: [id number] QRS: -50 QRSD: 173 T: 33 QT: 487 QTc: 572 Interpretive Statements SINUS RHYTHM MARKED LEFT AXIS DEVIATION [QRS AXIS < -30] RIGHT BUNDLE BRANCH BLOCK [120+ ms QRS DURATION, UPRIGHT V1, 40+ ms S IN I/aVL/V4/V5/V6] Compared to ECG 04/25/2019 14:00:21 Myocardial infarct finding no longer present Electronically Signed On 01-25-2020 19:41:40 DIRECTOR OF HOME HEALTH SERVICES by Valentin Partida M.D. [id number]
[2020-01-25 17:34] LABS: Urine Appearance Clear (CLEAR); Urine Color Straw (Yellow)
[2020-01-25 17:35] LABS: Add Urine Microscopic? YES; Bilirubin Urine Neg (Negative); Blood Urine 3+ (Negative); Glucose Urine UA Norm (Normal); Ketones Urine Negative (Negative); Leukocyte Esterase Urine Negative (Negative); Nitrate Urine Negative (Negative); Protein Urine 2+ (Negative); Sulfosalicylic Acid Urine Positive (Negative); Urobilinogen Urine Norm (Negative); pH Urine 9 (5-7)
[2020-01-25 17:45] LABS: RBC Urine 15-25 /hpf (0-2)
[2020-01-25 17:46] LABS: Add Urine Culture? Yes; Bacteria Urine 2+ /hpf; Squamous Epithelial Cell Urine 0-4 /hpf (0-5); WBC Urine 0-4 /hpf (0-5)
== END 2020-01-25 18:30 | disposition home or self-care (01) ==
PROVIDERS: Emergency Provider Emergency Medicine; PCP Internal Medicine
DX: N30.00 Acute cystitis without hematuria (principal); E27.9 Disorder of adrenal gland, unspecified; Z79.82 Long term (current) use of aspirin; Z79.4 Long term (current) use of insulin; I48.20 Chronic atrial fibrillation, unspecified; E11.9 Type 2 diabetes mellitus without complications; I11.0 Hypertensive heart disease with heart failure; I50.30 Unspecified diastolic (congestive) heart failure; Z85.3 Personal history of malignant neoplasm of breast; Z87.891 Personal history of nicotine dependence; Z95.5 Presence of coronary angioplasty implant and graft
CPT/HCPCS: 12345; 74177; 80053; 81001; 83690; 85025; 87086; 93005; 96361; 96374; 96375; 99283; J2270; J2405; J7030; Q9967

== ENCOUNTER 2020-01-27 13:21 | Outpatient (CLI) | payer MEDICAID, SELFPAY | END 2020-01-27 13:22 | disposition home or self-care (01) | LOC: WOUND 13:22 | PROVIDERS: PCP Internal Medicine; Visit Provider Surgery | DX: E11.622 Type 2 diabetes mellitus with other skin ulcer (principal); L97.322 Non-pressure chronic ulcer of left ankle with fat layer exposed; L97.822 Non-pressure chronic ulcer of other part of left lower leg with fat layer exposed | CPT/HCPCS: 11042 ==

== ENCOUNTER 2020-01-30 12:57 | Outpatient (CLI) | payer MEDICAID, SELFPAY | END 2020-01-30 12:58 | disposition home or self-care (01) | LOC: WOUND 12:57 | PROVIDERS: PCP Internal Medicine; Visit Provider Nurse Practitioner Family | DX: E11.622 Type 2 diabetes mellitus with other skin ulcer (principal); L97.329 Non-pressure chronic ulcer of left ankle with unspecified severity; L97.829 Non-pressure chronic ulcer of other part of left lower leg with unspecified severity | CPT/HCPCS: 29581 ==

== ENCOUNTER 2020-02-03 13:12 | Outpatient (CLI) | payer MEDICAID, SELFPAY | END 2020-02-03 13:13 | disposition home or self-care (01) | LOC: WOUND 13:12 | PROVIDERS: PCP Internal Medicine; Visit Provider Surgery | DX: E11.622 Type 2 diabetes mellitus with other skin ulcer (principal); L97.322 Non-pressure chronic ulcer of left ankle with fat layer exposed | CPT/HCPCS: 11042 ==

== ENCOUNTER 2020-02-08 15:14 | Outpatient (CLI) | payer MEDICAID, SELFPAY | END 2020-02-08 15:15 | disposition home or self-care (01) | LOC: WOUND 15:17 | PROVIDERS: PCP Internal Medicine; Visit Provider Nurse Practitioner Family | DX: E11.622 Type 2 diabetes mellitus with other skin ulcer (principal); L97.322 Non-pressure chronic ulcer of left ankle with fat layer exposed | CPT/HCPCS: 11042 ==

== ENCOUNTER 2020-02-24 13:06 | Outpatient (CLI) | payer MEDICAID, SELFPAY | END 2020-02-24 13:07 | disposition home or self-care (01) | LOC: WOUND 13:07 | PROVIDERS: PCP Internal Medicine; Visit Provider Surgery | DX: E11.622 Type 2 diabetes mellitus with other skin ulcer (principal); L97.322 Non-pressure chronic ulcer of left ankle with fat layer exposed | CPT/HCPCS: 11042 ==

== ENCOUNTER 2020-03-02 13:44 | Outpatient (CLI) | payer MEDICAID, SELFPAY | END 2020-03-02 13:45 | disposition home or self-care (01) | LOC: WOUND 13:44 | PROVIDERS: PCP Internal Medicine; Visit Provider Surgery | DX: E11.621 Type 2 diabetes mellitus with foot ulcer (principal); L97.529 Non-pressure chronic ulcer of other part of left foot with unspecified severity | CPT/HCPCS: 11042 ==

== ENCOUNTER 2020-03-16 13:13 | Outpatient (CLI) | payer MEDICAID, SELFPAY | END 2020-03-16 13:14 | disposition home or self-care (01) | LOC: WOUND 13:13 | PROVIDERS: PCP Internal Medicine; Visit Provider Surgery | DX: E11.622 Type 2 diabetes mellitus with other skin ulcer (principal); L97.322 Non-pressure chronic ulcer of left ankle with fat layer exposed; L97.822 Non-pressure chronic ulcer of other part of left lower leg with fat layer exposed | CPT/HCPCS: 11042; 97597 ==

== ENCOUNTER 2020-03-23 13:28 | Outpatient (CLI) | payer MEDICAID, SELFPAY | END 2020-03-23 13:29 | disposition home or self-care (01) | LOC: WOUND 13:29 | PROVIDERS: PCP Internal Medicine; Visit Provider Surgery | DX: E11.622 Type 2 diabetes mellitus with other skin ulcer (principal); L97.322 Non-pressure chronic ulcer of left ankle with fat layer exposed; L97.829 Non-pressure chronic ulcer of other part of left lower leg with unspecified severity | CPT/HCPCS: 11042 ==

== ENCOUNTER 2020-04-06 13:06 | Outpatient (CLI) | payer MEDICAID, SELFPAY | END 2020-04-06 13:07 | disposition home or self-care (01) | LOC: WOUND 13:06 | PROVIDERS: PCP Internal Medicine; Visit Provider Surgery | DX: E11.622 Type 2 diabetes mellitus with other skin ulcer (principal); L97.322 Non-pressure chronic ulcer of left ankle with fat layer exposed; L97.822 Non-pressure chronic ulcer of other part of left lower leg with fat layer exposed | CPT/HCPCS: 11042; 11045 ==

== ENCOUNTER 2020-04-13 13:05 | Outpatient (CLI) | payer MEDICAID, SELFPAY | END 2020-04-13 13:06 | disposition home or self-care (01) | LOC: WOUND 13:05 | PROVIDERS: PCP Internal Medicine; Visit Provider Surgery | DX: E11.622 Type 2 diabetes mellitus with other skin ulcer (principal); L97.322 Non-pressure chronic ulcer of left ankle with fat layer exposed; L97.829 Non-pressure chronic ulcer of other part of left lower leg with unspecified severity | CPT/HCPCS: 11042 ==

== ENCOUNTER 2020-04-19 08:59 | Outpatient (CLI) | payer MEDICAID, SELFPAY ==
[2020-04-19 09:50] LABS: Basophils # 0.1 10^3/uL (0.0-0.1); Basophils % 0.7 %; Eosinophils # 0.1 10^3/uL (0.0-0.8); Eosinophils % 1.6 %; Hematocrit 31.8 % (37.0-47.0); Hemoglobin 9.6 g/dL (11.5-15.3); Lymphocytes # 1.1 10^3/uL (0.8-4.8); Lymphocytes % 12.4 %; Mean Corpuscular HGB Conc 30.2 g/dL (30.0-36.0); Mean Corpuscular Hemoglobin 26.3 pg (28.0-34.0); Mean Corpuscular Volume 87.1 fL (81-99); Mean Platelet Volume 9.2 fL (7.4-10.4); Monocytes # 0.6 10^3/uL (0.2-0.9); Monocytes % 7.1 %; Neutrophils # 6.83 10^3/uL (1.8-7.7); Neutrophils % 77.9 %; Nucleated Red Blood Cells % 0 %; Platelet Count 303 10^3/cmm (130-400); Red Blood Count 3.65 10^6/uL (4.1-5.3); Red Cell Distribution Width 16.1 % (12.1-15.1); White Blood Count 8.8 10^3/uL (4.0-10.0)
[2020-04-19 10:05] LABS: Ferritin 11 ng/mL (15-150); Iron 25 ug/dL (37-145); Percent Saturation 8.4 % (20-50); Total Iron Binding Capacity 296 mcg/dl; Unsaturated Iron Binding 271 ug/dL (112-347)
--- NOTE | 2020-04-19 16:43 | ONC FU_ITS ---
Dr. Pulido follow up note Patient: Seema Del Rosario Unit #: [id number]: 1955 Dicatated By: Abraham Pulido M.D.Date of Visit:Apr 19, 2020 Onc Med Follow-up/Prog Note History of Present Illness: Mrs. Seema Del Rosario, 64-year-old female with new diagnosed left breast cancer status post left partial mastectomy with axillary sentinel lymph node biopsy performed on 09/01/2016 final path report Infiltrating ductal carcinoma grade 1 with clear surgical margins tumor dimensions 3.6 x 1.5 cm positive lymphovascular space invasion Left axilla lymph node biopsy #1 showed benign lymph node no metastatic tumor identified Left axilla lymph node biopsy #2 benign adipose tissue no lymph node identified breast cancer prognostic profile showed Ki-67 analysis 4% favorable Estrogen receptor assay 100% Progesterone receptor assay 83% HER-2/bessy status negative by IHC and FISH over amplification As per patient in the month of she started having chest pain and went to see her primary care doctor and his CTA was done to rule out PE and it came back negative but there was a incidental finding of a left breast lump seen on the CT scan mammogram and sonogram was done and subsequently she underwent ultrasound-guided biopsy of left breast found to have infiltrating ductal carcinoma, and a further on 09/01/2016 she underwent partial mastectomy. Postop. Complicated by development of hematoma due to aspirin now resolved . She tried Arimidex for 1 week and developed joint pains and muscle aches just prior to recent hospital admission and then she stopped taking Arimidex Switched to Aromasin, tolerating well lower extremity pain/discomfort recently underwent great saphenous vein ablation of left side for symptomatic varicose vein. As per patient now procedure didn't help her much. In December 2017 she also had venous Doppler study of lower extremity that showed no DVTs but lower extremity arterial study showed evidence of peripheral vascular disease.Repeat venous Doppler study done on 07/16/2018 showed no evidence of DVT in left lower extremity occasional hot flashes otherwise tolerating Aromasin well Mammogram done on 09/09/2018 shows BI-RADS 2 benign Came for follow-up, denies any specific complaint except generalized weakness and fatigue, no nausea or vomiting no diarrhea constipation, no melena or hematochezia, no jaundice, no hemoptysis hematemesis, in the past patient tried oral iron but could not tolerate. Denies any chest pain or palpitation at rest, otherwise tolerating Arimidex well Medications: Advair Diskus 1 puff(s) (of 250-50 mcg/dose) Aerosol Powder, Breath Activated Inhalation b.i.d., Albuterol Sulfate 2 puff(s) (of 108 (90 base) mcg/act) Aerosol Powder, Breath Activated Inhalation q 4 hours, Allopurinol 1 Tablet (of 100 mg) Oral daily, Amiodarone HCl 1 Tablet (of 200 mg) Oral daily, AmLODIPine Besylate 1 Tablet (of 10 mg) Oral daily, Aspirin EC 1 (325 mg) Tablet, enteric coated Oral daily, cloNIDine HCl 1 Tablet Oral daily, Exemestane 1 (25 mg) Tablet Oral daily, Gabapentin 1 Capsule (of 300 mg) Oral t.i.d., HumaLOG 35 Units Subcutaneous t.i.d., Isosorbide Mononitrate ER 1.5 Tablet (of 60 mg) Tablet SR 24 HR Oral every am, lasix 1 Tablet (of 80 mg) b.i.d., Simvastatin 1 (10 mg) Tablet Oral at bedtime, Spiriva HandiHaler 1 Capsule (of 18 mcg) Inhalation daily, Tresiba FlexTouch 100 Units Subcutaneous daily, Victoza 1.2 mg (of 0.6 ) Subcutaneous daily, Zoloft 1 Tablet (of 100 mg) Oral daily Allergies: Anastrozole Review of Systems: Review of Systems is not available for this patient. Vital Signs: Performed on Apr 19, 2020 10:42 Height - 66.00 in Weight - 302.4 lbs (HIGH) BSA - 2.38 sq.m BMI - 48.81 (HIGH) Temperature - 98.1 F (LOW) Pulse - 94 /min Respiration - 18 /min BP - 165/64 mm(hg) (HIGH) O2 Sat - 94 % (LOW) Pain - 0 Fatigue - 8 Performance Status: 2 - Ambulatory/capable of all self-care, unable to perform any work activities. Up and about more than 50% of waking hours. (ECOG) Physical Examination: Respiratory - Lungs are clear to auscultation, Cardiovascular - Regular rate and rhythm of heart, Gastrointestinal - Soft, bowel sounds present, Extremities - Trace edema bilaterally. Lab/Imaging: Most recent lab results are not available for this patient. Impression: Infiltrating ductal carcinoma of left breast status post partial mastectomy on 09/01/2016 final path report tumor size 3.6 x 1.5 cm , grade 1 clear margins , sentinel lymph node negative for metastatic disease, ER/RI positive HER-2/bessy negative by IHC and over amplification by FISH. T2, N0 ( sentinal node) ,Mx stage IIA Oncotype DX low risk recurrence score 3 Started on Arimidex on 10/16/2016 took it for 1 week then discontinued because of joint pains and muscle aches Started on exemestane 25 mg daily on 01/22/2017. For 5 years Recent Episode of atrial fibrillation status post cardioversion Newly diagnosed anemia normocytic normochromic ? etiology , could be due to diagnostic phlebotomy for lab workup during hospitalization, or blood loss due to anticoagulation for A. fib, patient denies any melena hematochezia., Intolerance to oral iron Follow-up mammogram done on 09/08/2017 showed BI-RADS 2-benign. Venous Doppler study of lower extremity done in December 2017 showed no evidence of DVTs but arterial study showed peripheral vascular disease. status post left great saphenous vein ablation Follow-up mammogram done on September 12, 2019 showed BI-RADS 2, benign EGD done on September 07, 2019 showed reflux disease, moderate hiatal hernia without obstruction no evidence of bleeding and colonoscopy done on September 07, 2019 showed 2 mm polyp in descending colon and one in rectum both were removed. No evidence of malignancy or bleeding Plan: Discussed with patient regarding her labs white blood count 8.8 hemoglobin 9.6 hematocrit 31.8 platelets 303,000 MCV 87.1 anemia work-up iron studies 8.4% which is low ferritin 11, iron 25 TIBC 296 Clinically, patient is doing well now with mild to moderate distress due to progressive generalized weakness and fatigue follow-up labs shows drop in her hemoglobin and iron studies shows severe iron deficiency, patient has intolerance to oral iron, will consider parenteral iron Injectafer 750 mg IV weekly x2 and then return to clinic 1 month after second dose with CBC and iron studies As per patient, she had EGD and colonoscopy done recently showed no significant abnormality, patient continued to have iron deficiency, we may consider capsule endoscopy to rule out small bowel AVMs causing chronic blood loss In the meantime she will continue with her Arimidex along with vitamin D and calcium supplement Signed By: Abraham Pulido M.D. <<Signature on File>>
== END 2020-04-19 09:00 | disposition home or self-care (01) ==
LOC: ONCMED 09:03
PROVIDERS: PCP Internal Medicine; Visit Provider Internal Medicine Hematology & Oncology
DX: C50.512 Malignant neoplasm of lower-outer quadrant of left female breast (principal); D50.9 Iron deficiency anemia, unspecified; R53.1 Weakness; R53.83 Other fatigue; I48.91 Unspecified atrial fibrillation; Z79.811 Long term (current) use of aromatase inhibitors; Z79.82 Long term (current) use of aspirin; Z17.0 Estrogen receptor positive status [ER+]
CPT/HCPCS: 36415; 82728; 83540; 83550; 85025; 99214

== ENCOUNTER 2020-04-20 13:34 | Outpatient (CLI) | payer MEDICAID, SELFPAY | END 2020-04-20 13:35 | disposition home or self-care (01) | LOC: WOUND 13:35 | PROVIDERS: Visit Provider Surgery | DX: E11.622 Type 2 diabetes mellitus with other skin ulcer (principal); L97.322 Non-pressure chronic ulcer of left ankle with fat layer exposed; L97.821 Non-pressure chronic ulcer of other part of left lower leg limited to breakdown of skin | CPT/HCPCS: 11042; 97597 ==

== ENCOUNTER 2020-04-23 07:56 | Outpatient (CLI) | payer MEDICAID, SELFPAY ==
--- NOTE | 2020-04-23 08:08 | CT_ITS ---
WS: [id number] LDCT LUNG CANCER SCREENING TECHNIQUE: Noncontrast CT of the chest with coronal and sagittal reformatted images. CLINICAL INFORMATION: TOBACCO USE COMPARISON: CTA chest [address] abdomen pelvis January 25, 2020 DLP: 84.8 mGy.cm DIvol: 2.[address] scans at [facility] use at least one of these dose optimization techniques: automat ed exposure control; mA and/or kV adjustment per patient size (includes targeted exams where dose is matched to clinical indication); or iterative reconstruction. FINDINGS: 3 mm noncalcified nodule right lower lobe along the fissure. Hazy atelectasis or fibrosis in the right middle lobe. Moderate chronic emphysematous changes. No acu te pulmonary infiltrates. No mediastinal or hilar lymphadenopathy. Coronary calcification. No axillar y lymphadenopathy. Subsegmental atelectasis in the lung bases. No other suspicious pulmonary opacities. Partially visual ized right adrenal mass is unchanged. Hypertrophic changes thoracic spine. Postoperative changes left breast. CT/CT lung screening [id number] IMPRESSION: LUNG-RADS: 2-Benign Appearance or Behavior FOLLOW UP: 12 Month: Continue annual screening with LDCT
== END 2020-04-23 07:57 | disposition home or self-care (01) ==
LOC: RAD 07:58
PROVIDERS: Visit Provider Internal Medicine Critical Care Medicine
DX: Z12.2 Encounter for screening for malignant neoplasm of respiratory organs (principal); Z87.891 Personal history of nicotine dependence; J98.11 Atelectasis
CPT/HCPCS: 71271

== ENCOUNTER 2020-04-24 10:04 | Outpatient (CLI) | payer MEDICAID, SELFPAY ==
--- NOTE | 2020-04-24 10:11 | USCV_ITS ---
Seema Del Rosario Age: 64 Gender: F : 1955 Exam Date: 04/24/2020 10:45 Ordering Phys: Kenyon Leavitt MD Technologist: Sebastián Bowling [place] [facility] [place] [facility] [place]: HISTORY: PROCEDURES: Left duplex Venous Insufficiency study of the Deep and Superficial systems was carried out according to normal protocol with the patient in supine positon for deep system and dependent position for the superficial system. FINDINGS: All deep veins demonstrated compressibility without evidence of intraluminal thrombus or increased echogenicity. Spectral analysis of Doppler signals demonstrates normal response to compression maneuvers indicating patency without obstruction. Reflux determinations were made with the patient in the dependent position, the weight being on the contralateral leg. Vein measurements and reflux times are listed below were applicable. No notable reflux was seen at this time. Echolucent areas in the subcutaneous tissue of the lower leg CONCLUSIONS No evidence of DVT in the above-mentioned identifiable veins. No significant venous reflux in the left lower extremity. Venous dimensions and the depth from the surface are as mentioned above Features of fluid retention/edema in the lower leg Dr Valentin Partida MD [facility] (Electronically Signed) Final Date: 25 April 2020 08:20 S
== END 2020-04-24 10:05 | disposition home or self-care (01) ==
LOC: US 10:05
PROVIDERS: PCP Internal Medicine; Visit Provider Surgery
DX: E11.622 Type 2 diabetes mellitus with other skin ulcer (principal); M79.662 Pain in left lower leg
CPT/HCPCS: 93971

== ENCOUNTER 2020-04-26 06:22 | Outpatient (CLI) | payer MEDICAID, SELFPAY ==
[2020-04-26] MEDS: sodium chloride 0.9% 250 ML 75 ML IV (09:55)
[2020-04-26] MEDS: diphenhydrAMINE 50 mg/mL SDV 1mL 25 MG IV (09:58)
[2020-04-26] MEDS: acetaminophen 325 mg Tablet 650 MG PO (10:10)
[2020-04-26] MEDS: iron dextran 25 MG in SYRINGE 1 EACH 75 MG IV (10:45)
[2020-04-26] MEDS: iron dextran 1,000 MG in sodium chloride 0.9% 1,000 ML 255 MG IV (11:15)
== END 2020-04-26 06:23 | disposition home or self-care (01) ==
LOC: ONCMED 06:24
PROVIDERS: PCP Internal Medicine; Visit Provider Nurse Practitioner
DX: C50.512 Malignant neoplasm of lower-outer quadrant of left female breast (principal); E11.9 Type 2 diabetes mellitus without complications; E78.5 Hyperlipidemia, unspecified; J44.9 Chronic obstructive pulmonary disease, unspecified; M19.90 Unspecified osteoarthritis, unspecified site
CPT/HCPCS: 96365; 96366; 96367; 96375; J1100; J1200; J1750; J7030; J7050

== ENCOUNTER 2020-04-30 12:54 | Outpatient (CLI) | payer MEDICAID, SELFPAY | END 2020-04-30 12:55 | disposition home or self-care (01) | LOC: WOUND 12:55 | PROVIDERS: PCP Internal Medicine; Visit Provider Nurse Practitioner Family | DX: E11.622 Type 2 diabetes mellitus with other skin ulcer (principal) | CPT/HCPCS: 29581 ==

== ENCOUNTER 2020-05-04 13:07 | Outpatient (CLI) | payer MEDICAID, SELFPAY | END 2020-05-04 13:08 | disposition home or self-care (01) | LOC: WOUND 13:07 | PROVIDERS: PCP Internal Medicine; Visit Provider Nurse Practitioner Family | DX: E11.622 Type 2 diabetes mellitus with other skin ulcer (principal); L97.321 Non-pressure chronic ulcer of left ankle limited to breakdown of skin; L97.821 Non-pressure chronic ulcer of other part of left lower leg limited to breakdown of skin | CPT/HCPCS: 11042; 11045 ==

== ENCOUNTER 2020-05-08 12:32 | Outpatient (CLI) | payer MEDICAID, SELFPAY | END 2020-05-08 12:33 | disposition home or self-care (01) | LOC: WOUND 12:33 | PROVIDERS: PCP Internal Medicine; Visit Provider Thoracic Surgery (Cardiothoracic Vascular Surgery) | DX: E11.622 Type 2 diabetes mellitus with other skin ulcer (principal); L97.329 Non-pressure chronic ulcer of left ankle with unspecified severity; L97.829 Non-pressure chronic ulcer of other part of left lower leg with unspecified severity | CPT/HCPCS: 29581 ==

== ENCOUNTER 2020-05-11 12:59 | Outpatient (CLI) | payer MEDICAID, SELFPAY | END 2020-05-11 13:00 | disposition home or self-care (01) | LOC: WOUND 12:59 | PROVIDERS: PCP Internal Medicine; Visit Provider Surgery | DX: E11.622 Type 2 diabetes mellitus with other skin ulcer (principal); L97.322 Non-pressure chronic ulcer of left ankle with fat layer exposed; L97.822 Non-pressure chronic ulcer of other part of left lower leg with fat layer exposed | CPT/HCPCS: 11042 ==

== ENCOUNTER 2020-05-16 13:15 | Outpatient (CLI) | payer MEDICAID, SELFPAY | END 2020-05-16 13:16 | disposition home or self-care (01) | LOC: WOUND 13:16 | PROVIDERS: PCP Internal Medicine; Visit Provider Thoracic Surgery (Cardiothoracic Vascular Surgery) | DX: E11.622 Type 2 diabetes mellitus with other skin ulcer (principal); L97.329 Non-pressure chronic ulcer of left ankle with unspecified severity | CPT/HCPCS: 29581 ==

== ENCOUNTER 2020-05-18 13:16 | Outpatient (CLI) | payer MEDICAID, SELFPAY | END 2020-05-18 13:17 | disposition home or self-care (01) | LOC: WOUND 13:17 | PROVIDERS: PCP Internal Medicine; Visit Provider Surgery | DX: E11.622 Type 2 diabetes mellitus with other skin ulcer (principal); L97.322 Non-pressure chronic ulcer of left ankle with fat layer exposed | CPT/HCPCS: 15271; Q4186 ==

== ENCOUNTER 2020-05-22 13:39 | Outpatient (CLI) | payer MEDICAID, SELFPAY | END 2020-05-22 13:40 | disposition home or self-care (01) | LOC: WOUND 13:39 | PROVIDERS: PCP Internal Medicine; Visit Provider Thoracic Surgery (Cardiothoracic Vascular Surgery) | DX: E11.622 Type 2 diabetes mellitus with other skin ulcer (principal); L97.329 Non-pressure chronic ulcer of left ankle with unspecified severity | CPT/HCPCS: 29581 ==

== ENCOUNTER 2020-05-25 13:09 | Outpatient (CLI) | payer MEDICAID, SELFPAY | END 2020-05-25 13:10 | disposition home or self-care (01) | LOC: WOUND 13:10 | PROVIDERS: PCP Internal Medicine; Visit Provider Surgery | DX: E11.622 Type 2 diabetes mellitus with other skin ulcer (principal); L97.322 Non-pressure chronic ulcer of left ankle with fat layer exposed | CPT/HCPCS: 15271; Q4186 ==

== ENCOUNTER 2020-05-29 15:26 | Outpatient (CLI) | payer MEDICAID, SELFPAY | END 2020-05-29 15:27 | disposition home or self-care (01) | LOC: WOUND 15:27 | PROVIDERS: PCP Internal Medicine; Visit Provider Thoracic Surgery (Cardiothoracic Vascular Surgery) | DX: E11.622 Type 2 diabetes mellitus with other skin ulcer (principal); L97.329 Non-pressure chronic ulcer of left ankle with unspecified severity | CPT/HCPCS: 29581 ==

== ENCOUNTER 2020-06-01 13:13 | Outpatient (CLI) | payer MEDICAID, SELFPAY | END 2020-06-01 13:14 | disposition home or self-care (01) | LOC: WOUND 13:14 | PROVIDERS: PCP Internal Medicine; Visit Provider Surgery | DX: E11.622 Type 2 diabetes mellitus with other skin ulcer (principal); L97.322 Non-pressure chronic ulcer of left ankle with fat layer exposed | CPT/HCPCS: 15271; Q4186 ==

== ENCOUNTER 2020-06-04 13:27 | Outpatient (CLI) | payer MEDICAID, SELFPAY ==
[2020-06-04 13:58] LABS: Basophils # 0.1 10^3/uL (0.0-0.1); Basophils % 0.6 %; Eosinophils # 0.3 10^3/uL (0.0-0.8); Eosinophils % 2.8 %; Hemoglobin 11.8 g/dL (11.5-15.3); Lymphocytes # 1.5 10^3/uL (0.8-4.8); Lymphocytes % 15.7 %; Mean Corpuscular HGB Conc 31.9 g/dL (30.0-36.0); Mean Corpuscular Hemoglobin 27.6 pg (28.0-34.0); Mean Corpuscular Volume 86.7 fL (81-99); Mean Platelet Volume 10.1 fL (7.4-10.4); Monocytes # 0.6 10^3/uL (0.2-0.9); Monocytes % 6.5 %; Neutrophils # 7.13 10^3/uL (1.8-7.7); Neutrophils % 74.1 %; Nucleated Red Blood Cells % 0 %; Platelet Count 279 10^3/cmm (130-400); Red Blood Count 4.27 10^6/uL (4.1-5.3); Red Cell Distribution Width 16.5 % (12.1-15.1); White Blood Count 9.6 10^3/uL (4.0-10.0)
[2020-06-04 14:20] LABS: Ferritin 178 ng/mL (15-150); Iron 46 ug/dL (37-145); Percent Saturation 20.1 % (20-50); Total Iron Binding Capacity 228 mcg/dl; Unsaturated Iron Binding 182 ug/dL (112-347)
[2020-06-04 14:55] LABS: Folate Level 6.5 ng/mL (4.8-37.3)
--- NOTE | 2020-06-04 16:53 | ONC FU_ITS ---
Dr. Pulido follow up note Patient: Seema Del Rosario Unit #: [id number]: 1955 Dicatated By: Abraham Pulido M.D.Date of Visit:Jun 04, 2020 Onc Med Follow-up/Prog Note History of Present Illness: Mrs. Seema Del Rosario, 64-year-old female with new diagnosed left breast cancer status post left partial mastectomy with axillary sentinel lymph node biopsy performed on 09/01/2016 final path report Infiltrating ductal carcinoma grade 1 with clear surgical margins tumor dimensions 3.6 x 1.5 cm positive lymphovascular space invasion Left axilla lymph node biopsy #1 showed benign lymph node no metastatic tumor identified Left axilla lymph node biopsy #2 benign adipose tissue no lymph node identified breast cancer prognostic profile showed Ki-67 analysis 4% favorable Estrogen receptor assay 100% Progesterone receptor assay 83% HER-2/bessy status negative by IHC and FISH over amplification As per patient in the month of she started having chest pain and went to see her primary care doctor and his CTA was done to rule out PE and it came back negative but there was a incidental finding of a left breast lump seen on the CT scan mammogram and sonogram was done and subsequently she underwent ultrasound-guided biopsy of left breast found to have infiltrating ductal carcinoma, and a further on 09/01/2016 she underwent partial mastectomy. Postop. Complicated by development of hematoma due to aspirin now resolved . She tried Arimidex for 1 week and developed joint pains and muscle aches just prior to recent hospital admission and then she stopped taking Arimidex Switched to Aromasin, tolerating well lower extremity pain/discomfort recently underwent great saphenous vein ablation of left side for symptomatic varicose vein. As per patient now procedure didn't help her much. In December 2017 she also had venous Doppler study of lower extremity that showed no DVTs but lower extremity arterial study showed evidence of peripheral vascular disease.Repeat venous Doppler study done on 07/16/2018 showed no evidence of DVT in left lower extremity occasional hot flashes otherwise tolerating Aromasin well Mammogram done on 09/09/2018 shows BI-RADS 2 benign Dose of iron dextran 1000 mg infusion was given on April 26, 2020 for iron deficiency anemia Came for follow-up, denies any specific complaints, no fever chills, no nausea or vomiting, no diarrhea or constipation, no melena or hematochezia, tolerated iron dextran infusion well. Medications: Advair Diskus 1 puff(s) (of 250-50 mcg/dose) Aerosol Powder, Breath Activated Inhalation b.i.d., Albuterol Sulfate 2 puff(s) (of 108 (90 base) mcg/act) Aerosol Powder, Breath Activated Inhalation q 4 hours, Allopurinol 1 Tablet (of 100 mg) Oral daily, Amiodarone HCl 1 Tablet (of 200 mg) Oral daily, AmLODIPine Besylate 1 Tablet (of 10 mg) Oral daily, Aspirin EC 1 (325 mg) Tablet, enteric coated Oral daily, cloNIDine HCl 1 Tablet Oral daily, Exemestane 1 (25 mg) Tablet Oral daily, Gabapentin 1 Capsule (of 300 mg) Oral t.i.d., HumaLOG 35 Units Subcutaneous t.i.d., Isosorbide Mononitrate ER 1.5 Tablet (of 60 mg) Tablet SR 24 HR Oral every am, lasix 1 Tablet (of 80 mg) b.i.d., Simvastatin 1 (10 mg) Tablet Oral at bedtime, Spiriva HandiHaler 1 Capsule (of 18 mcg) Inhalation daily, Tresiba FlexTouch 100 Units Subcutaneous daily, Victoza 1.2 mg (of 0.6 ) Subcutaneous daily, Zoloft 1 Tablet (of 100 mg) Oral daily Allergies: Anastrozole Review of Systems: Review of Systems is not available for this patient. Vital Signs: Performed on Jun 04, 2020 15:04 Height - 66.00 in Weight - 294.6 lbs (LOW) BSA - 2.36 sq.m BMI - 47.55 (HIGH) Temperature - 98.4 F Pulse - 72 /min Respiration - 18 /min BP - 192/77 mm(hg) (HIGH) O2 Sat - 98 % Pain - 8 Fatigue - 6 Performance Status: 2 - Ambulatory/capable of all self-care, unable to perform any work activities. Up and about more than 50% of waking hours. (ECOG) Physical Examination: Respiratory - Lungs are clear to auscultation, Cardiovascular - Regular rate and rhythm of heart, Gastrointestinal - Soft, bowel sounds present, Extremities - Trace edema bilaterally. Lab/Imaging: Most recent lab results are not available for this patient. Impression: Infiltrating ductal carcinoma of left breast status post partial mastectomy on 09/01/2016 final path report tumor size 3.6 x 1.5 cm , grade 1 clear margins , sentinel lymph node negative for metastatic disease, ER/GA positive HER-2/bessy negative by IHC and over amplification by FISH. T2, N0 ( sentinal node) ,Mx stage IIA Oncotype DX low risk recurrence score 3 Started on Arimidex on 10/16/2016 took it for 1 week then discontinued because of joint pains and muscle aches Started on exemestane 25 mg daily on 01/22/2017. For 5 years Recent Episode of atrial fibrillation status post cardioversion Newly diagnosed anemia normocytic normochromic ? etiology , could be due to diagnostic phlebotomy for lab workup during hospitalization, or blood loss due to anticoagulation for A. fib, patient denies any melena hematochezia., Intolerance to oral iron Follow-up mammogram done on 09/08/2017 showed BI-RADS 2-benign. Venous Doppler study of lower extremity done in December 2017 showed no evidence of DVTs but arterial study showed peripheral vascular disease. status post left great saphenous vein ablation Follow-up mammogram done on September 12, 2019 showed BI-RADS 2, benign EGD done on September 07, 2019 showed reflux disease, moderate hiatal hernia without obstruction no evidence of bleeding and colonoscopy done on September 07, 2019 showed 2 mm polyp in descending colon and one in rectum both were removed. No evidence of malignancy or bleeding Plan: Discussed with patient regarding her labs white blood count 9.6 hemoglobin 11.8 hematocrit 37 compared to 9.6/31.8 on April 19, 2020 e.g. prior to IV iron. Platelets 279,000, iron studies shows iron saturation 20.1% compared to 8.4% previously ferritin 178 compared to 11 prior to iron infusion iron 46 compared to 25 previously Clinically, patient doing well with no new signs symptom, tolerated parenteral iron well for iron deficiency anemia with excellent response, hemoglobin normalized iron studies improved now in normal range, patient is more energetic., Will continue to monitor and she will return to clinic in 1 month with CBC and iron studies if there is a drop in her hemoglobin or iron stores, will refer her to GI for capsule endoscopy to rule out small bowel AVMs as recently done colonoscopy showed no significant pathology. As far as breast cancer is concerned, patient is tolerating Aromasin well, will continue same. Signed By: Abraham Pulido M.D. <<Signature on File>>
== END 2020-06-04 13:28 | disposition home or self-care (01) ==
LOC: ONCMED 13:30
PROVIDERS: PCP Internal Medicine; Visit Provider Internal Medicine Hematology & Oncology
DX: C50.812 Malignant neoplasm of overlapping sites of left female breast (principal); Z17.0 Estrogen receptor positive status [ER+]; Z90.12 Acquired absence of left breast and nipple; D50.9 Iron deficiency anemia, unspecified; I48.91 Unspecified atrial fibrillation; Z79.01 Long term (current) use of anticoagulants; Z79.899 Other long term (current) drug therapy; Z79.811 Long term (current) use of aromatase inhibitors
CPT/HCPCS: 36415; 82728; 82746; 83540; 83550; 85025; 99215

== ENCOUNTER 2020-06-08 13:06 | Outpatient (CLI) | payer MEDICAID, SELFPAY | END 2020-06-08 13:07 | disposition home or self-care (01) | LOC: WOUND 13:07 | PROVIDERS: PCP Internal Medicine; Visit Provider Surgery | DX: Z09 Encounter for follow-up examination after completed treatment for conditions other than malignant neoplasm (principal) ==

== ENCOUNTER 2020-06-29 14:13 | Outpatient (CLI) | payer MEDICAID, SELFPAY | END 2020-06-29 14:14 | disposition home or self-care (01) | LOC: WOUND 14:13 | PROVIDERS: PCP Internal Medicine; Visit Provider Nurse Practitioner Family | DX: I87.2 Venous insufficiency (chronic) (peripheral) (principal); L97.812 Non-pressure chronic ulcer of other part of right lower leg with fat layer exposed | CPT/HCPCS: 29581 ==

== ENCOUNTER 2020-07-02 14:25 | Outpatient (CLI) | payer MEDICAID, SELFPAY | END 2020-07-02 14:26 | disposition home or self-care (01) | LOC: WOUND 14:25 | PROVIDERS: PCP Internal Medicine; Visit Provider Thoracic Surgery (Cardiothoracic Vascular Surgery) | DX: E11.622 Type 2 diabetes mellitus with other skin ulcer (principal); L97.819 Non-pressure chronic ulcer of other part of right lower leg with unspecified severity | CPT/HCPCS: 29581 ==

== ENCOUNTER 2020-07-05 11:18 | Outpatient (CLI) | payer MEDICAID, SELFPAY ==
[2020-07-05 12:05] LABS: Basophils # 0.1 10^3/uL (0.0-0.1); Basophils % 0.5 %; Eosinophils # 0.2 10^3/uL (0.0-0.8); Eosinophils % 2.1 %; Hematocrit 33.4 % (37.0-47.0); Hemoglobin 10.2 g/dL (11.5-15.3); Lymphocytes # 1.5 10^3/uL (0.8-4.8); Lymphocytes % 13.6 %; Mean Corpuscular HGB Conc 30.5 g/dL (30.0-36.0); Mean Corpuscular Volume 91.8 fL (81-99); Mean Platelet Volume 9.9 fL (7.4-10.4); Monocytes # 0.6 10^3/uL (0.2-0.9); Monocytes % 5.6 %; Neutrophils % 77.8 %; Nucleated Red Blood Cells % 0 %; Platelet Count 334 10^3/cmm (130-400); Red Blood Count 3.64 10^6/uL (4.1-5.3)
[2020-07-05 13:09] LABS: Iron 42 ug/dL (37-145); Percent Saturation 18.4 % (20-50); Total Iron Binding Capacity 228 mcg/dl; Unsaturated Iron Binding 186 ug/dL (112-347)
--- NOTE | 2020-07-06 08:01 | ONC FU_ITS ---
Dr. Pulido follow up note Patient: Seema Del Rosario Unit #: [id number]: 1955 Dicatated By: Abraham Pulido M.D.Date of Visit:July 05, 2020 Onc Med Follow-up/Prog Note History of Present Illness: Mrs. Seema Del Rosario, 64-year-old female with new diagnosed left breast cancer status post left partial mastectomy with axillary sentinel lymph node biopsy performed on 09/01/2016 final path report Infiltrating ductal carcinoma grade 1 with clear surgical margins tumor dimensions 3.6 x 1.5 cm positive lymphovascular space invasion Left axilla lymph node biopsy #1 showed benign lymph node no metastatic tumor identified Left axilla lymph node biopsy #2 benign adipose tissue no lymph node identified breast cancer prognostic profile showed Ki-67 analysis 4% favorable Estrogen receptor assay 100% Progesterone receptor assay 83% HER-2/bessy status negative by IHC and FISH over amplification As per patient in the month of she started having chest pain and went to see her primary care doctor and his CTA was done to rule out PE and it came back negative but there was a incidental finding of a left breast lump seen on the CT scan mammogram and sonogram was done and subsequently she underwent ultrasound-guided biopsy of left breast found to have infiltrating ductal carcinoma, and a further on 09/01/2016 she underwent partial mastectomy. Postop. Complicated by development of hematoma due to aspirin now resolved . She tried Arimidex for 1 week and developed joint pains and muscle aches just prior to recent hospital admission and then she stopped taking Arimidex Switched to Aromasin, tolerating well lower extremity pain/discomfort recently underwent great saphenous vein ablation of left side for symptomatic varicose vein. As per patient now procedure didn't help her much. In December 2017 she also had venous Doppler study of lower extremity that showed no DVTs but lower extremity arterial study showed evidence of peripheral vascular disease.Repeat venous Doppler study done on 07/16/2018 showed no evidence of DVT in left lower extremity occasional hot flashes otherwise tolerating Aromasin well Mammogram done on 09/09/2018 shows BI-RADS 2 benign Dose of iron dextran 1000 mg infusion was given on April 26, 2020 for iron deficiency anemia Came for follow-up, complaining of generalized weakness and fatigue, patient has sleep apnea using BiPAP, no melena or hematochezia, no hemoptysis or hematemesis, no jaundice, no fever chills, no night sweats, no weight loss, no recurrent fever Medications: Advair Diskus 1 puff(s) (of 250-50 mcg/dose) Aerosol Powder, Breath Activated Inhalation b.i.d., Albuterol Sulfate 2 puff(s) (of 108 (90 base) mcg/act) Aerosol Powder, Breath Activated Inhalation q 4 hours, Allopurinol 1 Tablet (of 100 mg) Oral daily, Amiodarone HCl 1 Tablet (of 200 mg) Oral daily, AmLODIPine Besylate 1 Tablet (of 10 mg) Oral daily, Aspirin EC 1 (325 mg) Tablet, enteric coated Oral daily, cloNIDine HCl 3 Tablet Oral daily, Exemestane 1 (25 mg) Tablet Oral daily, Gabapentin 1 Capsule (of 300 mg) Oral t.i.d., HumaLOG 35 Units Subcutaneous t.i.d., Isosorbide Mononitrate ER 1.5 Tablet (of 60 mg) Tablet SR 24 HR Oral every am, Lantus 15 Units (of 100 Units/mL) Subcutaneous b.i.d., lasix 1 Tablet (of 80 mg) b.i.d., Simvastatin 1 (10 mg) Tablet Oral at bedtime, Spiriva HandiHaler 1 Capsule (of 18 mcg) Inhalation daily, Tresiba FlexTouch 100 Units Subcutaneous daily, Zoloft 1 Tablet (of 100 mg) Oral daily Allergies: Anastrozole Review of Systems: Review of Systems is not available for this patient. Vital Signs: Performed on July 05, 2020 12:54 Height - 66.00 in Weight - 301.8 lbs (HIGH) BSA - 2.38 sq.m BMI - 48.71 (HIGH) Temperature - 97.5 F (LOW) Pulse - 65 /min Respiration - 20 /min BP - 152/56 mm(hg) (HIGH) O2 Sat - 92 % (LOW) Pain - 0 Fatigue - 5 Performance Status: 2 - Ambulatory/capable of all self-care, unable to perform any work activities. Up and about more than 50% of waking hours. (ECOG) Physical Examination: Respiratory - Lungs are clear to auscultation, Cardiovascular - Regular rate and rhythm of heart, Gastrointestinal - Soft, bowel sounds present, Extremities - No visible edema or rash. Lab/Imaging: Test performed on June 18, 2020 13:45 TSH 0.559 uU/mL Glucose 89 mg/dL Vitamin D (25-Hydroxy) 18.2 ng/mL BUN 55 mg/dL Creatinine 1.87 mg/dL Cr Clearance (Est) 64.12 mL/min Sodium 142 mmol/L Potassium 3.4 mmol/L Chloride 96 mmol/L CO2 29 mmol/L Calcium 9.1 mg/dL Protein, Total 6.8 g/dL Albumin 3.8 g/dL Globulin 3.0 g/dL Bilirubin, Total 0.2 mg/dL Alkaline Phosphatase 88 IU/L AST (SGOT) 20 IU/L ALT (SGPT) 17 IU/L Hemoglobin A1C 6.5 % WBC 9.2 10^9/L RBC 3.74 10^12/L HGB 10.3 g/dL HCT 31.8 % MCV 85 fl MCH 27.5 pg MCHC 32.4 g/dL RDW 17.0 % Platelet Count 302 10^9/L Neutrophils (Gran) 6.8 10^9/L Lymphocytes 1.6 10^9/L Monocytes 0.5 10^9/L Eosinophils 0.3 10^9/L Basophils 0.1 10^9/L Manual Lymphocytes 17 % Manual Monocytes 6 % Manual Eosinophils 3 % Manual Basophils 1 % Impression: Infiltrating ductal carcinoma of left breast status post partial mastectomy on 09/01/2016 final path report tumor size 3.6 x 1.5 cm , grade 1 clear margins , sentinel lymph node negative for metastatic disease, ER/VA positive HER-2/bessy negative by IHC and over amplification by FISH. T2, N0 ( sentinal node) ,Mx stage IIA Oncotype DX low risk recurrence score 3 Started on Arimidex on 10/16/2016 took it for 1 week then discontinued because of joint pains and muscle aches Started on exemestane 25 mg daily on 01/22/2017. For 5 years Recent Episode of atrial fibrillation status post cardioversion Newly diagnosed anemia normocytic normochromic ? etiology , could be due to diagnostic phlebotomy for lab workup during hospitalization, or blood loss due to anticoagulation for A. fib, patient denies any melena hematochezia., Intolerance to oral iron, Responded well to parenteral iron Follow-up mammogram done on 09/08/2017 showed BI-RADS 2-benign. Venous Doppler study of lower extremity done in December 2017 showed no evidence of DVTs but arterial study showed peripheral vascular disease. status post left great saphenous vein ablation Follow-up mammogram done on September 12, 2019 showed BI-RADS 2, benign EGD done on September 07, 2019 showed reflux disease, moderate hiatal hernia without obstruction no evidence of bleeding and colonoscopy done on September 07, 2019 showed 2 mm polyp in descending colon and one in rectum both were removed. No evidence of malignancy or bleeding Plan: Discussed with patient regarding her labs white blood count 11 hemoglobin 10.2 hematocrit 33.4 platelets 334,000, iron studies shows iron saturation 18.4 compared to 21 1 earlier iron 42 TIBC 228 Clinically, patient is doing well now with persistent generalized weakness and fatigue etiology could be multifactorial including progressive iron deficiency anemia due to chronic blood loss or malabsorption, her EGD and colonoscopy done in recent past did not show any source of blood loss, considering her age small bowel AVMs cannot be ruled out, at this point we will refer her to GI for capsule endoscopy to evaluate small bowel for possible source of chronic blood loss. In the meantime patient was offered repeating parenteral iron ,dextran as in the past she responded very well. Patient said as it takes many hours to infuse dextran and her is scheduled for lung biopsy so she will come back in 2 weeks, at that time we will check a CBC if there is a further drop, e.g. less than 8 g, will consider blood transfusion otherwise parenteral iron with dextran. As for her breast cancer is concerned, patient is on Arimidex, tolerating well Signed By: Abraham Pulido M.D. <<Signature on File>>
== END 2020-07-05 11:19 | disposition home or self-care (01) ==
PROVIDERS: PCP Internal Medicine; Visit Provider Internal Medicine Hematology & Oncology
DX: C50.812 Malignant neoplasm of overlapping sites of left female breast (principal); Z90.12 Acquired absence of left breast and nipple; Z17.0 Estrogen receptor positive status [ER+]; Z79.811 Long term (current) use of aromatase inhibitors; I48.91 Unspecified atrial fibrillation; D64.9 Anemia, unspecified; Z79.01 Long term (current) use of anticoagulants; Z86.718 Personal history of other venous thrombosis and embolism
CPT/HCPCS: 36415; 83540; 83550; 85025; 99214

== ENCOUNTER 2020-07-06 10:16 | Outpatient (CLI) | payer MEDICAID, SELFPAY | END 2020-07-06 10:17 | disposition home or self-care (01) | LOC: WOUND 10:16 | PROVIDERS: PCP Internal Medicine; Visit Provider Thoracic Surgery (Cardiothoracic Vascular Surgery) | DX: I87.2 Venous insufficiency (chronic) (peripheral) (principal); L97.812 Non-pressure chronic ulcer of other part of right lower leg with fat layer exposed | CPT/HCPCS: 97597; 97598 ==

== ENCOUNTER 2020-07-13 14:18 | Outpatient (CLI) | payer MEDICAID, SELFPAY | END 2020-07-13 14:19 | disposition home or self-care (01) | LOC: WOUND 14:19 | PROVIDERS: PCP Internal Medicine; Visit Provider Surgery | DX: Z09 Encounter for follow-up examination after completed treatment for conditions other than malignant neoplasm (principal) | CPT/HCPCS: 99212 ==

== ENCOUNTER 2020-07-23 08:20 | Outpatient (CLI) | payer MEDICAID, SELFPAY ==
[2020-07-23 08:47] LABS: Basophils # 0.1 10^3/uL (0.0-0.1); Basophils % 0.8 %; Eosinophils # 0.2 10^3/uL (0.0-0.8); Eosinophils % 2.4 %; Hematocrit 33.9 % (37.0-47.0); Hemoglobin 10.7 g/dL (11.5-15.3); Lymphocytes # 1.2 10^3/uL (0.8-4.8); Lymphocytes % 14.1 %; Mean Corpuscular HGB Conc 31.6 g/dL (30.0-36.0); Mean Corpuscular Volume 91.9 fL (81-99); Mean Platelet Volume 9.9 fL (7.4-10.4); Monocytes # 0.5 10^3/uL (0.2-0.9); Monocytes % 5.8 %; Neutrophils # 6.73 10^3/uL (1.8-7.7); Neutrophils % 76.3 %; Nucleated Red Blood Cells % 0 %; Platelet Count 278 10^3/cmm (130-400); Red Blood Count 3.69 10^6/uL (4.1-5.3); Red Cell Distribution Width 15.5 % (12.1-15.1); White Blood Count 8.8 10^3/uL (4.0-10.0)
[2020-07-23] MEDS: acetaminophen 325 mg Tablet 650 MG PO (10:56)
[2020-07-23] MEDS: sodium chloride 0.9% 250 ML IV (11:01)
[2020-07-23] MEDS: diphenhydrAMINE 50 mg/mL SDV 1mL 25 MG IV (11:01)
[2020-07-23] MEDS: iron dextran 25 MG in SYRINGE 1 EACH 30 MG IVP (11:30)
[2020-07-23] MEDS: iron dextran 1,000 MG in sodium chloride 0.9% 1,000 ML 250 MG IV (12:14)
[2020-07-23 12:47] LABS: Vitamin B12 385 pg/mL (232-1245)
--- NOTE | 2020-07-30 08:51 | ONC FU_ITS ---
[facility] Patient Note Patient: Seema Del Rosario Unit #: [id number]: [id number] Dictated By: Godfrey AmaroDate of Visit: Jul 23, 2020 Onc MED Follow-Up/Prog Note Chief Complaint: Left breast cancer ER/DE positive HER-2/bessy negative History of Present Illness: Mrs. Del Rosario is a 63-year-old female with left breast cancer. She is status post left partial mastectomy with axillary sentinel lymph node biopsy performed on 09/01/2016. Her final pathology at that time reported infiltrating ductal carcinoma grade 1 with clear surgical margins, tumor dimensions 3.6 x 1.5, positive lymphovascular space invasion, left axillary lymph node biopsy #1 showed benign lymph node with no metastatic tumor identified and left axillary lymph node biopsy #2 reported benign adipose tissue with no lymph node abnormalities identified. The breast cancer prognostic profile showed Ki 67 analysis at 4% reported as favorable, ER assay 100% (ER positive), progesterone receptor assay 83% (DE positive) and HER-2/bessy status: negative by IHC and FISH over amplification She presented to her PCP in with chest pain. A CTA was done to rule out PE and it came back negative but there was a incidental finding of a left breast lump. As this was seen on the CT scan, a mammogram and sonogram was done. Subsequently, she underwent ultrasound-guided biopsy of left breast and was found to have infiltrating ductal carcinoma. On 09/01/2016, she underwent partial mastectomy. Postop. Complicated by development of hematoma due to aspirin which eventuall resolved . She tried Arimidex for 1 week and developed joint pains and muscle aches just prior to a hospital admission. She stopped taking Arimidex and was switched to Aromasin and has tolerated it well. She pesented with lower extremity pain/discomfort and underwent great saphenous vein ablation of left side for symptomatic varicose vein. As per patient's report the procedure didn't help her much. In December 2017, she had a venous Doppler study of lower extremity that showed no DVTs. Howeer, a lower extremity arterial study showed evidence of peripheral vascular disease. Repeat venous Doppler study done on 07/16/2018 showed no evidence of DVT in left lower extremity. Mammogram done on 09/09/2018 shows BI-RADS 2: benign. Ms. Del Rosario has remained on routine follow-up as she continues the Aromasin, vitamin D and calcium. She is tolerated this well. She was given iron dextran 1000 mg on April 26, 2020 for iron deficiency anemia. Her hemoglobin at that time was 9.6 and her iron saturation was 8.4 with a ferritin of 11 and total iron of 25. Her hemoglobin has recovered as on June 04, 2020 it was 11.8. Today it is 10.7. She has no new concerns. She states she is having some fatigue but did not think it is any worse than what it has been although it is not any better either. She states she has not been on her vitamin D supplement for some time. She states she is eating well. She denies any new pain. She denies any fever or chills. She states she has not had any mouth sores, sore throat or difficulty swallowing. Her bowels and bladder have been normal for her. She denies any lower extremity edema or pain. Her ECOG is 2. Past Medical History: Chronic obstructive pulmonary disease Diabetes type II Hyperlipidemia Osteoarthritis Past Surgical History: Covid vaccine #2 in 2020 Covid vaccine #1 in 2020 Breast biopsy in 2016 Angioplasty in 2016 Allergies: Anastrozole Medications: Advair Diskus 1 puff(s) (of 250-50 mcg/dose) Aerosol Powder, Breath Activated Inhalation b.i.d. Albuterol Sulfate 2 puff(s) (of 108 (90 base) mcg/act) Aerosol Powder, Breath Activated Inhalation q 4 hours Allopurinol 1 Tablet (of 100 mg) Oral daily Amiodarone HCl 1 Tablet (of 200 mg) Oral daily AmLODIPine Besylate 1 Tablet (of 10 mg) Oral daily Aspirin EC 1 (325 mg) Tablet, enteric coated Oral daily cloNIDine HCl 3 Tablet Oral daily Exemestane 1 (25 mg) Tablet Oral daily Gabapentin 1 Capsule (of 300 mg) Oral t.i.d. HumaLOG 35 Units Subcutaneous t.i.d. Isosorbide Mononitrate ER 1.5 Tablet (of 60 mg) Tablet SR 24 HR Oral every am Lantus 15 Units (of 100 Units/mL) Subcutaneous b.i.d. lasix 1 Tablet (of 80 mg) b.i.d. Simvastatin 1 (10 mg) Tablet Oral at bedtime Spiriva HandiHaler 1 Capsule (of 18 mcg) Inhalation daily Tresiba FlexTouch 100 Units Subcutaneous daily Zoloft 1 Tablet (of 100 mg) Oral daily Family History: Ms. Del Rosario's mother at age 40. Ms. Del Rosario's father at age 65: cancer unspecified, and heart disease. Social History: Ms. Del Rosario is and she is unemployed. Ms. Del Rosario no longer smokes but had smoked 1.0 pack/day for 48 years. She has no history of drinking. She has indicated exposure to the following products: cigarettes. Ms. Del Rosario reports the following support systems: lives with spouse, significant other, family, or friends, lives in own house, supportive family/friends willing to assist with needs, and adequate transportation available for expected visits. Her diet consists of regular meals. She indicates her activity level as: daily activities. Patient quit smoking in March of 2016. Review Of Symptoms: <See Above> Vital Signs: Performed on Jul 23, 2020 16:17 Height - 66.00 in Temperature - 97.9 F (LOW) Pulse - 62 /min Respiration - 18 /min BP - 143/69 mm(hg) (HIGH) O2 Sat - 95 % (LOW) Performed on Jul 23, 2020 10:11 Height - 66.00 in Weight - 293.6 lbs (LOW) BSA - 2.35 sq.m BMI - 47.39 (HIGH) Temperature - 97.4 F (LOW) Pulse - 65 /min Respiration - 18 /min BP - 154/71 mm(hg) (HIGH) O2 Sat - 94 % (LOW) Pain - 0 Fatigue - 8,2 - Ambulatory/capable of all self-care, unable to perform any work activities. Up and about more than 50% of waking hours. (ECOG) Physical Examination: Constitutional Alert, oriented, no acute distress. Skin pink, warm and dry. Head Normocephalic; atraumatic. Eyes Conjunctivae and sclerae are clear and without icterus. Pupils are reactive and equal. Neck Supple without masses or thyromegaly. No jugular venous distension. Respiratory Lungs are clear to auscultation without rhonchi or wheezing. Wears continuous oxygen supplementation per nasal cannula. Cardiovascular Regular rate and rhythm of heart without murmurs,clicks, gallops or rubs. Back/Spine Non-tender to palpation. Extremities No visible deformities, no cyanosis, clubbing or edema Musculoskeletal No tenderness or swelling, normal range of motion without obvious weakness. Integumentary No rashes or lesions. Neurologic No sensory or motor deficits, normal cerebellar function, wheelchair for mobility assistance, transfers without difficulty. Psychiatric Alert and oriented times three. Coherent speech. Verbalizes understanding of our discussions today. Laboratory:Test performed on Jul 23, 2020 11:30 Vitamin B12 385 pg/mL Test performed on Jul 23, 2020 08:35 WBC 8.8 10 3/uL RBC 3.69 10 6/uL HGB 10.7 g/dL HCT 33.9 % MCV 91.9 fL MCH 29.0 pg MCHC 31.6 g/dL RDW 15.5 % Platelet Count 278 10 3/cmm MPV 9.9 fL Neutrophils 6.73 10 3/uL Lymphocytes 1.2 10 3/uL Monocytes 0.5 10 3/uL Eosinophils 0.2 10 3/uL Basophils 0.1 10 3/uL Neutrophil % 76.3 % Lymphocyte % 14.1 % Monocyte % 5.8 % Eosinophil % 2.4 % Basophils % 0.8 % NRBC % 0 % Test performed on June 18, 2020 13:45 TSH 0.559 uU/mL Glucose 89 mg/dL Vitamin D (25-Hydroxy) 18.2 ng/mL BUN 55 mg/dL Creatinine 1.87 mg/dL Cr Clearance (Est) 64.12 mL/min Sodium 142 mmol/L Potassium 3.4 mmol/L Chloride 96 mmol/L CO2 29 mmol/L Calcium 9.1 mg/dL Protein, Total 6.8 g/dL Albumin 3.8 g/dL Globulin 3.0 g/dL Bilirubin, Total 0.2 mg/dL Alkaline Phosphatase 88 IU/L AST (SGOT) 20 IU/L ALT (SGPT) 17 IU/L Hemoglobin A1C 6.5 % Manual Lymphocytes 17 % Manual Monocytes 6 % Manual Eosinophils 3 % Manual Basophils 1 % Impression: Infiltrating ductal carcinoma of left breast status post partial mastectomy on 09/01/2016 final path report tumor size 3.6 x 1.5 cm , grade 1 clear margins , sentinel lymph node negative for metastatic disease, ER/DE positive HER-2/bessy negative by IHC and over amplification by FISH. T2, N0 ( sentinal node) ,Mx stage IIA Oncotype DX low risk recurrence score 3 Started on Arimidex on 10/16/2016 took it for 1 week then discontinued because of joint pains and muscle aches Started on exemestane 25 mg daily on 01/22/2017. For 5 years Recent Episode of atrial fibrillation status post cardioversion Newly diagnosed anemia normocytic normochromic ? etiology , could be due to diagnostic phlebotomy for lab workup during hospitalization, or blood loss due to anticoagulation for A. fib, patient denies any melena hematochezia., Intolerance to oral iron, Responded well to parenteral iron Follow-up mammogram done on 09/08/2017 showed BI-RADS 2-benign. Venous Doppler study of lower extremity done in December 2017 showed no evidence of DVTs but arterial study showed peripheral vascular disease. status post left great saphenous vein ablation Follow-up mammogram done on September 12, 2019 showed BI-RADS 2, benign EGD done on September 07, 2019 showed reflux disease, moderate hiatal hernia without obstruction no evidence of bleeding and colonoscopy done on September 07, 2019 showed 2 mm polyp in descending colon and one in rectum both were removed. No evidence of malignancy or bleeding Plan/Problems Addressed at this Visit: 1. Infiltrating ductal carcinoma of the left breast status post partial mastectomy on 09/01/2016. She is ER/DE positive HER-2/bessy negative. A. She will continue with the Aromasin/exemestane 25 mg daily. She began her first dose on 01/22/2017. The current plan is for 5 years total dosing. She is tolerating it well. B. Labs from today were reviewed in detail and discussed with Mrs. Del Rosario and a copy was given to her. WBC is 8.8, hemoglobin 10.7, platelets 1 78,000, ANC is 6730. C. She had a CT noncontrast/LDCT lung for cancer screening on 04/23/2020. This reported lung-RADS: 2-benign appearance or behavior, recommend 12-month follow-up and annual screening with LDCT. D. She did have diagnostic bilateral digital mammogram with CAD last on 09/12/2019 which reported BI-RADS: 2-benign and follow-up in 1 year. Discussed with patient regarding her labs white blood count 11 hemoglobin 10.2 hematocrit 33.4 platelets 334,000, iron studies shows iron saturation 18.4 compared to 21 1 earlier iron 42 TIBC 228 2. Persistent generalized weakness and fatigue etiology could be multifactorial including progressive iron deficiency anemia due to chronic blood loss or malabsorption. Her EGD and colonoscopy in the past did not show any source of blood loss. Per Dr Pulido's notes, considering her age, small bowel AVMs cannot be ruled out. He recommended referring her to GI for capsule endoscopy to evaluate small bowel for possible source of chronic blood loss. In the meantime, Mrs Del Rosario was offered repeat parenteral iron dextran as in the past she responded very well. She was concerned it takes many hours to infuse dextran and her was scheduled for lung biopsy at her last visit. She did agree to come back in 2 weeks with the plan being that we will check a CBC and if there is a further drop, e.g. less than 8 g, will consider blood transfusion, otherwise parenteral iron with dextran. A. She is prepared to proceed with Iron Dextran today. B. Proceed with planned IV iron replacement today. 3. Vitamin D deficiency A. She will resume her weekly vitamin D at her previous dosing which was called into [facility]. 4. Fatigue A. We will check a vitamin B-12 level today as it was 500 in September. B. She has had a recent TSH on June 18, 2020 which was reported at 0.559. C. Her hemoglobin A1c also on 06/18/2020 was 6.5. 5. Follow-up plan A. We will have her return in 1 month with CBC CMP and iron studies. B. Mrs. Del Rosario was instructed to contact us in interim should questions or problems arise. Total time spent on Ms. Del Rosario's culture today including review of records prior to visit, discussion of her labs and iron dextran infusion and current plan of care as well as post visit documentation was 50 minutes. Signed By: Godfrey Amaro-TISHA, AOANTONETTE Pulido MD <<Signature on File>>
== END 2020-07-23 08:21 | disposition home or self-care (01) ==
LOC: ONCMED 08:21
PROVIDERS: PCP Internal Medicine; Visit Provider Nurse Practitioner
DX: C50.812 Malignant neoplasm of overlapping sites of left female breast (principal); Z17.0 Estrogen receptor positive status [ER+]; I48.20 Chronic atrial fibrillation, unspecified; D50.0 Iron deficiency anemia secondary to blood loss (chronic); D51.9 Vitamin B12 deficiency anemia, unspecified; Z79.811 Long term (current) use of aromatase inhibitors; Z79.01 Long term (current) use of anticoagulants
CPT/HCPCS: 82607; 85025; 96365; 96366; 96367; 96375; 99215; J1100; J1200; J1750; J7030; J7050

== ENCOUNTER 2020-08-27 09:20 | Outpatient (CLI) | payer MEDICAID, SELFPAY ==
[2020-08-27 09:41] LABS: Basophils # 0.1 10^3/uL (0.0-0.1); Basophils % 0.7 %; Eosinophils # 0.2 10^3/uL (0.0-0.8); Eosinophils % 2.1 %; Hematocrit 35.1 % (37.0-47.0); Lymphocytes # 1.2 10^3/uL (0.8-4.8); Lymphocytes % 12.9 %; Mean Corpuscular HGB Conc 31.3 g/dL (30.0-36.0); Mean Corpuscular Hemoglobin 28.8 pg (28.0-34.0); Mean Corpuscular Volume 91.9 fL (81-99); Mean Platelet Volume 9.8 fL (7.4-10.4); Monocytes # 0.5 10^3/uL (0.2-0.9); Monocytes % 5.7 %; Neutrophils # 7.27 10^3/uL (1.8-7.7); Neutrophils % 77.4 %; Nucleated Red Blood Cells % 0 %; Platelet Count 254 10^3/cmm (130-400); Red Blood Count 3.82 10^6/uL (4.1-5.3); Red Cell Distribution Width 14.3 % (12.1-15.1); White Blood Count 9.4 10^3/uL (4.0-10.0)
[2020-08-27 09:56] LABS: Alanine Aminotransferase 16 U/L (0-33); Albumin Level 3.5 g/dL (3.5-5.2); Alkaline Phosphatase 91 IU/L (35-105); Anion Gap 13.8 (5-19); Aspartate Amino Transferase 14 U/L (0-32); Blood Urea Nitrogen 39 mg/dL (8-23); Calcium 8.9 mg/dL (8.5-10.5); Carbon Dioxide 30 mmol/L (22-29); Chloride 99 mmol/L (98-107); Ferritin 311 ng/mL (15-150); Globulin 3.3 g/dL (1.3-4.6); Glomerular Filtration Rate 37.9 mL/min (90-130); Glucose 183 mg/dL (65-115); Iron 45 ug/dL (37-145); Osmolality Calculated 302 mOsm/kg (285-295); Percent Saturation 23.6 % (20-50); Potassium 3.8 mmol/L (3.5-5.1); Sodium 139 mmol/L (136-145); Total Bilirubin 0.2 mg/dL (0.15-1.2); Total Iron Binding Capacity 190 mcg/dl; Total Protein 6.8 g/dL (6.6-8.7); Unsaturated Iron Binding 145 ug/dL (112-347)
== END 2020-08-27 09:21 | disposition home or self-care (01) ==
LOC: ONCMED 09:24
PROVIDERS: PCP Internal Medicine; Visit Provider Nurse Practitioner
DX: C50.512 Malignant neoplasm of lower-outer quadrant of left female breast (principal); M19.90 Unspecified osteoarthritis, unspecified site; E11.9 Type 2 diabetes mellitus without complications; E78.5 Hyperlipidemia, unspecified; J44.9 Chronic obstructive pulmonary disease, unspecified
CPT/HCPCS: 36415; 80053; 82728; 83540; 83550; 85025

== ENCOUNTER 2020-08-28 05:58 | Outpatient (CLI) | payer MEDICAID, SELFPAY ==
--- NOTE | 2020-09-09 16:24 | ONC FU_ITS ---
Dr. Pulido follow up note Patient: Seema Del Rosario Unit #: [id number]: 1955 Dicatated By: Abraham Pulido M.D.Date of Visit:Aug 28, 2020 Onc Med Follow-up/Prog Note History of Present Illness: Mrs. Del Rosario is a 63-year-old female with left breast cancer. She is status post left partial mastectomy with axillary sentinel lymph node biopsy performed on 09/01/2016. Her final pathology at that time reported infiltrating ductal carcinoma grade 1 with clear surgical margins, tumor dimensions 3.6 x 1.5, positive lymphovascular space invasion, left axillary lymph node biopsy #1 showed benign lymph node with no metastatic tumor identified and left axillary lymph node biopsy #2 reported benign adipose tissue with no lymph node abnormalities identified. The breast cancer prognostic profile showed Ki 67 analysis at 4% reported as favorable, ER assay 100% (ER positive), progesterone receptor assay 83% (TX positive) and HER-2/bessy status: negative by IHC and FISH over amplification She presented to her PCP in with chest pain. A CTA was done to rule out PE and it came back negative but there was a incidental finding of a left breast lump. As this was seen on the CT scan, a mammogram and sonogram was done. Subsequently, she underwent ultrasound-guided biopsy of left breast and was found to have infiltrating ductal carcinoma. On 09/01/2016, she underwent partial mastectomy. Postop. Complicated by development of hematoma due to aspirin which eventuall resolved . She tried Arimidex for 1 week and developed joint pains and muscle aches just prior to a hospital admission. She stopped taking Arimidex and was switched to Aromasin and has tolerated it well. She pesented with lower extremity pain/discomfort and underwent great saphenous vein ablation of left side for symptomatic varicose vein. As per patient's report the procedure didn't help her much. In December 2017, she had a venous Doppler study of lower extremity that showed no DVTs. Howeer, a lower extremity arterial study showed evidence of peripheral vascular disease. Repeat venous Doppler study done on 07/16/2018 showed no evidence of DVT in left lower extremity. Mammogram done on 09/09/2018 shows BI-RADS 2: benign. Ms. Del Rosario has remained on routine follow-up as she continues the Aromasin, vitamin D and calcium. She is tolerated this well. She was given iron dextran 1000 mg on April 26, 2020 for iron deficiency anemia. Her hemoglobin at that time was 9.6 and her iron saturation was 8.4 with a ferritin of 11 and total iron of 25. Came for follow-up, denies any specific complaints, no fever chills, no nausea or vomiting, no diarrhea constipation, no melena or hematochezia, no hemoptysis or hematemesis, no nosebleed or gum bleed, no jaundice, no abdominal pain,, as far as breast cancer concerned she is on Aromasin, tolerating well Medications: Advair Diskus 1 puff(s) (of 250-50 mcg/dose) Aerosol Powder, Breath Activated Inhalation b.i.d., Albuterol Sulfate 2 puff(s) (of 108 (90 base) mcg/act) Aerosol Powder, Breath Activated Inhalation q 4 hours, Allopurinol 1 Tablet (of 100 mg) Oral daily, Amiodarone HCl 1 Tablet (of 200 mg) Oral daily, AmLODIPine Besylate 1 Tablet (of 10 mg) Oral daily, Aspirin EC 1 (325 mg) Tablet, enteric coated Oral daily, cloNIDine HCl 3 Tablet Oral daily, Exemestane 1 (25 mg) Tablet Oral daily, Gabapentin 1 Capsule (of 300 mg) Oral t.i.d., HumaLOG 35 Units Subcutaneous t.i.d., Isosorbide Mononitrate ER 1.5 Tablet (of 60 mg) Tablet SR 24 HR Oral every am, Lantus 15 Units (of 100 Units/mL) Subcutaneous b.i.d., lasix 1 Tablet (of 80 mg) b.i.d., Simvastatin 1 (10 mg) Tablet Oral at bedtime, Spiriva HandiHaler 1 Capsule (of 18 mcg) Inhalation daily, Tresiba FlexTouch 100 Units Subcutaneous daily, Zoloft 1 Tablet (of 100 mg) Oral daily Allergies: Anastrozole Review of Systems: Review of Systems is not available for this patient. Vital Signs: Performed on Aug 28, 2020 16:08 Height - 66.00 in Weight - 294 lbs (HIGH) BSA - 2.36 sq.m BMI - 47.45 (HIGH) Temperature - 98.2 F (LOW) Pulse - 67 /min Respiration - 18 /min BP - 182/69 mm(hg) (HIGH) O2 Sat - 96 % Pain - 0 Fatigue - 8 Performance Status: 1 - No physically strenuous activity, but ambulatory and able to carry out light or sedentary work (e.g. office work, light house work). (ECOG) Physical Examination: Respiratory - No mouth sores, no thrush, no jaundice, Lungs are clear to auscultation, Cardiovascular - Irregular rate and rhythm, Gastrointestinal - Soft, bowel sounds present, Extremities - No visible edema. Lab/Imaging: Test performed on Jul 23, 2020 11:30 Vitamin B12 385 pg/mL Test performed on Jul 23, 2020 08:35 WBC 8.8 10 3/uL RBC 3.69 10 6/uL HGB 10.7 g/dL HCT 33.9 % MCV 91.9 fL MCH 29.0 pg MCHC 31.6 g/dL RDW 15.5 % Platelet Count 278 10 3/cmm MPV 9.9 fL Neutrophils 6.73 10 3/uL Lymphocytes 1.2 10 3/uL Monocytes 0.5 10 3/uL Eosinophils 0.2 10 3/uL Basophils 0.1 10 3/uL Neutrophil % 76.3 % Lymphocyte % 14.1 % Monocyte % 5.8 % Eosinophil % 2.4 % Basophils % 0.8 % NRBC % 0 % Test performed on June 18, 2020 13:45 TSH 0.559 uU/mL Glucose 89 mg/dL Vitamin D (25-Hydroxy) 18.2 ng/mL BUN 55 mg/dL Creatinine 1.87 mg/dL Cr Clearance (Est) 64.12 mL/min Sodium 142 mmol/L Potassium 3.4 mmol/L Chloride 96 mmol/L CO2 29 mmol/L Calcium 9.1 mg/dL Protein, Total 6.8 g/dL Albumin 3.8 g/dL Globulin 3.0 g/dL Bilirubin, Total 0.2 mg/dL Alkaline Phosphatase 88 IU/L AST (SGOT) 20 IU/L ALT (SGPT) 17 IU/L Hemoglobin A1C 6.5 % Manual Lymphocytes 17 % Manual Monocytes 6 % Manual Eosinophils 3 % Manual Basophils 1 % Impression: Infiltrating ductal carcinoma of left breast status post partial mastectomy on 09/01/2016 final path report tumor size 3.6 x 1.5 cm , grade 1 clear margins , sentinel lymph node negative for metastatic disease, ER/TX positive HER-2/bessy negative by IHC and over amplification by FISH. T2, N0 ( sentinal node) ,Mx stage IIA Oncotype DX low risk recurrence score 3 Started on Arimidex on 10/16/2016 took it for 1 week then discontinued because of joint pains and muscle aches Started on exemestane 25 mg daily on 01/22/2017. For 5 years Recent Episode of atrial fibrillation status post cardioversion Newly diagnosed anemia normocytic normochromic ? etiology , could be due to diagnostic phlebotomy for lab workup during hospitalization, or blood loss due to anticoagulation for A. fib, patient denies any melena hematochezia., Intolerance to oral iron, Responded well to parenteral iron Follow-up mammogram done on 09/08/2017 showed BI-RADS 2-benign. Venous Doppler study of lower extremity done in December 2017 showed no evidence of DVTs but arterial study showed peripheral vascular disease. status post left great saphenous vein ablation Follow-up mammogram done on September 12, 2019 showed BI-RADS 2, benign EGD done on September 07, 2019 showed reflux disease, moderate hiatal hernia without obstruction no evidence of bleeding and colonoscopy done on September 07, 2019 showed 2 mm polyp in descending colon and one in rectum both were removed. No evidence of malignancy or bleeding Plan: Discussed with patient regarding her labs white blood count 9.4 hemoglobin 11 g compared to 10.7 g previously, hematocrit 35.1 platelets [id number] CMP within normal limit except creatinine 1.4 iron studies shows ferritin 311 iron saturation 23.6 iron 45 TIBC 190 B12 was 385 Clinically, patient doing well with no new signs symptoms, her follow-up CBC shows continued improvement in her hemoglobin and adequate iron stores, will continue to monitorAnd consider follow-up mammogram prior to next visit As far as breast cancer is concerned, patient is on Aromasin, tolerating well will continue with same and patient return to clinic in 2 months with CBC and iron studies Signed By: Abraham Pulido M.D. <<Signature on File>>
== END 2020-08-28 05:59 | disposition home or self-care (01) ==
LOC: ONCMED 05:59
PROVIDERS: PCP Internal Medicine; Visit Provider Internal Medicine Hematology & Oncology
DX: C50.512 Malignant neoplasm of lower-outer quadrant of left female breast (principal); Z90.12 Acquired absence of left breast and nipple; Z17.0 Estrogen receptor positive status [ER+]; I48.91 Unspecified atrial fibrillation; D64.9 Anemia, unspecified; Z79.01 Long term (current) use of anticoagulants; Z79.811 Long term (current) use of aromatase inhibitors
CPT/HCPCS: 99214

== ENCOUNTER 2020-09-12 09:19 | Outpatient (CLI) | payer MEDICAID, SELFPAY ==
--- NOTE | 2020-09-12 09:23 | MM_ITS ---
WS: [id number] Exam: [id number] Date/Time of Exam: 09/12/2020 9:33 AM Reason For Exam: HX OF BREAST CA VIEWS: MLO, CC, and ML views both breasts. CAD was utilized. Comparison made with prior exam of 07/31/2016, 09/08/2017, 09/09/2018 and 09/12/2019. Findings: Chronic postoperative changes in the left breast with volume loss. No sign of recurrent mass. No new suspicious finding seen in the right breast.Scattered fibroglandular densities in both breasts. MM/[id number] Impression: BI-RADS: 2-Benign FOLLOW-UP: 1 Year Follow-up This mammogram was also analyzed by the Computer Aided Detection System R2 [employer].
== END 2020-09-12 09:20 | disposition home or self-care (01) ==
LOC: RADSHAW 09:22
PROVIDERS: Absent Provider Internal Medicine Hematology & Oncology; PCP Internal Medicine; Visit Provider Internal Medicine
DX: Z85.3 Personal history of malignant neoplasm of breast (principal)
CPT/HCPCS: 77066

== ENCOUNTER 2020-10-05 09:37 | Outpatient (CLI) | payer MEDICAID, SELFPAY ==
--- NOTE | 2020-10-05 09:48 | XR_ITS ---
WS: [id number] Chest 2 views, 10/05/2020 Clinical Data: WHEEZING,COPD,COUGH Comparison: Portable chest, 04/25/2019. Findings: No nodules, masses or effusions are seen. The heart is normal. The pulmonary vascularity is not increased. No pneumothorax is seen. There is a minimal patchy opacity in the right upper lobe w hich could represent pneumonia. There are clips in the left axilla and overlying the left breast. XR/XR chest 2V* [id number] Impression: 1. Minimal patchy opacity in right upper lobe which could indicate atelectasis and/or pneumonia. 2. Recommend repeat chest x-ray in 3-5 days.
== END 2020-10-05 09:38 | disposition home or self-care (01) ==
PROVIDERS: PCP Internal Medicine; Visit Provider Internal Medicine
DX: J44.9 Chronic obstructive pulmonary disease, unspecified (principal); R05 Cough; R06.2 Wheezing
CPT/HCPCS: 71046

== ENCOUNTER 2020-10-26 08:24 | Outpatient (CLI) | payer MEDICAID, SELFPAY ==
[2020-10-26 09:26] LABS: Basophils # 0.1 10^3/uL (0.0-0.1); Basophils % 0.9 %; Eosinophils # 0.3 10^3/uL (0.0-0.8); Eosinophils % 2.9 %; Hematocrit 33.4 % (37.0-47.0); Hemoglobin 10.5 g/dL (11.5-15.3); Lymphocytes # 1.5 10^3/uL (0.8-4.8); Lymphocytes % 13.9 %; Mean Corpuscular HGB Conc 31.4 g/dL (30.0-36.0); Mean Corpuscular Hemoglobin 29.2 pg (28.0-34.0); Mean Corpuscular Volume 92.8 fl (81-99); Mean Platelet Volume 9.8 fL (7.4-10.4); Monocytes # 0.6 10^3/uL (0.2-0.9); Neutrophils % 75.6 %; Nucleated Red Blood Cells % 0 %; Platelet Count 310 10^3/cmm (130-400); Red Cell Distribution Width 14.6 % (12.1-15.1); White Blood Count 10.4 10^3/uL (4.0-10.0)
[2020-10-26 09:27] LABS: Ferritin 308 ng/mL (15-150); Iron 54 ug/dL (37-145); Percent Saturation 28.7 % (20-50); Total Iron Binding Capacity 188 mcg/dl; Unsaturated Iron Binding 134 ug/dL (112-347)
== END 2020-10-26 08:25 | disposition home or self-care (01) ==
LOC: ONCMED 08:27
PROVIDERS: PCP Internal Medicine; Visit Provider Internal Medicine Hematology & Oncology
DX: C50.512 Malignant neoplasm of lower-outer quadrant of left female breast (principal); E11.9 Type 2 diabetes mellitus without complications; E78.5 Hyperlipidemia, unspecified; J44.9 Chronic obstructive pulmonary disease, unspecified; M19.90 Unspecified osteoarthritis, unspecified site
CPT/HCPCS: 36415; 82728; 83540; 83550; 85025

== ENCOUNTER 2020-10-29 06:03 | Outpatient (CLI) | payer MEDICAID, SELFPAY ==
--- NOTE | 2020-10-29 13:36 | ONC FU_ITS ---
Dr. Pulido follow up note Patient: Seema Del Rosario Unit #: [id number]: 1955 Dicatated By: Abraham Pulido M.D.Date of Visit:Oct 29, 2020 Onc Med Follow-up/Prog Note History of Present Illness: Mrs. Del Rosario is a 63-year-old female with left breast cancer. She is status post left partial mastectomy with axillary sentinel lymph node biopsy performed on 09/01/2016. Her final pathology at that time reported infiltrating ductal carcinoma grade 1 with clear surgical margins, tumor dimensions 3.6 x 1.5, positive lymphovascular space invasion, left axillary lymph node biopsy #1 showed benign lymph node with no metastatic tumor identified and left axillary lymph node biopsy #2 reported benign adipose tissue with no lymph node abnormalities identified. The breast cancer prognostic profile showed Ki 67 analysis at 4% reported as favorable, ER assay 100% (ER positive), progesterone receptor assay 83% (VT positive) and HER-2/bessy status: negative by IHC and FISH over amplification She presented to her PCP in with chest pain. A CTA was done to rule out PE and it came back negative but there was a incidental finding of a left breast lump. As this was seen on the CT scan, a mammogram and sonogram was done. Subsequently, she underwent ultrasound-guided biopsy of left breast and was found to have infiltrating ductal carcinoma. On 09/01/2016, she underwent partial mastectomy. Postop. Complicated by development of hematoma due to aspirin which eventuall resolved . She tried Arimidex for 1 week and developed joint pains and muscle aches just prior to a hospital admission. She stopped taking Arimidex and was switched to Aromasin and has tolerated it well. She pesented with lower extremity pain/discomfort and underwent great saphenous vein ablation of left side for symptomatic varicose vein. As per patient's report the procedure didn't help her much. In December 2017, she had a venous Doppler study of lower extremity that showed no DVTs. Howeer, a lower extremity arterial study showed evidence of peripheral vascular disease. Repeat venous Doppler study done on 07/16/2018 showed no evidence of DVT in left lower extremity. Mammogram done on 09/09/2018 shows BI-RADS 2: benign. Ms. Del Rosario has remained on routine follow-up as she continues the Aromasin, vitamin D and calcium. She is tolerated this well. She was given iron dextran 1000 mg on April 26, 2020 for iron deficiency anemia. Her hemoglobin at that time was 9.6 and her iron saturation was 8.4 with a ferritin of 11 and total iron of 25. Came for follow-up, denies any specific complaints except generalized weakness and fatigue, patient has sleep apnea and now using CPAP machine diligently. Denies any nosebleed or gum bleed denies any petechia or ecchymosis denies any melena or hematochezia denies any jaundice denies any hemoptysis or hematemesis denies any nosebleed or hematuria or vaginal bleeding., Tolerating Aromasin well along with vitamin D and calcium Medications: Advair Diskus 1 puff(s) (of 250-50 mcg/dose) Aerosol Powder, Breath Activated Inhalation b.i.d., Albuterol Sulfate 2 puff(s) (of 108 (90 base) mcg/act) Aerosol Powder, Breath Activated Inhalation q 4 hours, Allopurinol 1 Tablet (of 100 mg) Oral daily, Amiodarone HCl 1 Tablet (of 200 mg) Oral daily, AmLODIPine Besylate 1 Tablet (of 10 mg) Oral daily, Aspirin EC 1 (325 mg) Tablet, enteric coated Oral daily, cloNIDine HCl 3 Tablet Oral daily, Exemestane 1 (25 mg) Tablet Oral daily, Gabapentin 1 Capsule (of 300 mg) Oral t.i.d., HumaLOG 35 Units Subcutaneous t.i.d., Isosorbide Mononitrate ER 1.5 Tablet (of 60 mg) Tablet SR 24 HR Oral every am, Lantus 15 Units (of 100 Units/mL) Subcutaneous b.i.d., lasix 1 Tablet (of 80 mg) b.i.d., Simvastatin 1 (10 mg) Tablet Oral at bedtime, Spiriva HandiHaler 1 Capsule (of 18 mcg) Inhalation daily, Tresiba FlexTouch 100 Units Subcutaneous daily, Zoloft 1 Tablet (of 100 mg) Oral daily Allergies: Anastrozole Review of Systems: Review of Systems is not available for this patient. Vital Signs: Performed on Oct 29, 2020 11:32 Height - 66.00 in Temperature - 97.4 F (LOW) Pulse - 68 /min Respiration - 18 /min BP - 143/67 mm(hg) (HIGH) O2 Sat - 97 % Pain - 0 Fatigue - 8 Performance Status: 1 - No physically strenuous activity, but ambulatory and able to carry out light or sedentary work (e.g. office work, light house work). (ECOG) Physical Examination: Respiratory - Lungs are clear to auscultation, Cardiovascular - Regular rate and rhythm of heart, Gastrointestinal - Soft, bowel sounds present, Extremities - Trace edema bilaterally. Lab/Imaging: Test performed on Jul 23, 2020 11:30 Vitamin B12 385 pg/mL Test performed on Jul 23, 2020 08:35 WBC 8.8 10 3/uL RBC 3.69 10 6/uL HGB 10.7 g/dL HCT 33.9 % MCV 91.9 fL MCH 29.0 pg MCHC 31.6 g/dL RDW 15.5 % Platelet Count 278 10 3/cmm MPV 9.9 fL Neutrophils 6.73 10 3/uL Lymphocytes 1.2 10 3/uL Monocytes 0.5 10 3/uL Eosinophils 0.2 10 3/uL Basophils 0.1 10 3/uL Neutrophil % 76.3 % Lymphocyte % 14.1 % Monocyte % 5.8 % Eosinophil % 2.4 % Basophils % 0.8 % NRBC % 0 % Test performed on June 18, 2020 13:45 TSH 0.559 uU/mL Glucose 89 mg/dL Vitamin D (25-Hydroxy) 18.2 ng/mL BUN 55 mg/dL Creatinine 1.87 mg/dL Cr Clearance (Est) 64.12 mL/min Sodium 142 mmol/L Potassium 3.4 mmol/L Chloride 96 mmol/L CO2 29 mmol/L Calcium 9.1 mg/dL Protein, Total 6.8 g/dL Albumin 3.8 g/dL Globulin 3.0 g/dL Bilirubin, Total 0.2 mg/dL Alkaline Phosphatase 88 IU/L AST (SGOT) 20 IU/L ALT (SGPT) 17 IU/L Hemoglobin A1C 6.5 % Manual Lymphocytes 17 % Manual Monocytes 6 % Manual Eosinophils 3 % Manual Basophils 1 % Impression: Infiltrating ductal carcinoma of left breast status post partial mastectomy on 09/01/2016 final path report tumor size 3.6 x 1.5 cm , grade 1 clear margins , sentinel lymph node negative for metastatic disease, ER/VT positive HER-2/bessy negative by IHC and over amplification by FISH. T2, N0 ( sentinal node) ,Mx stage IIA Oncotype DX low risk recurrence score 3 Started on Arimidex on 10/16/2016 took it for 1 week then discontinued because of joint pains and muscle aches Started on exemestane 25 mg daily on 01/22/2017. For 5 years Recent Episode of atrial fibrillation status post cardioversion Newly diagnosed anemia normocytic normochromic ? etiology , could be due to diagnostic phlebotomy for lab workup during hospitalization, or blood loss due to anticoagulation for A. fib, patient denies any melena hematochezia., Intolerance to oral iron, Responded well to parenteral iron Follow-up mammogram done on 09/08/2017 showed BI-RADS 2-benign. Venous Doppler study of lower extremity done in December 2017 showed no evidence of DVTs but arterial study showed peripheral vascular disease. status post left great saphenous vein ablation Follow-up mammogram done on September 12, 2019 showed BI-RADS 2, benign EGD done on September 07, 2019 showed reflux disease, moderate hiatal hernia without obstruction no evidence of bleeding and colonoscopy done on September 07, 2019 showed 2 mm polyp in descending colon and one in rectum both were removed. No evidence of malignancy or bleeding Plan: Discussed with patient regarding her labs white blood count 10.4 hemoglobin 10.5 hematocrit 33.4 platelets 310,000 iron saturation 28.7% ferritin 308 iron 54 TIBC 188 Clinically, patient is doing well with no new signs symptom, patient has persistent mild anemia could be multifactorial including underlying myelodysplasia or functional iron deficiency, will continue to monitor if there is a drop in her hemoglobin, will consider iron studies if it shows no evidence of iron deficiency, then will consider bone marrow evaluation. As far as breast cancer is concerned, patient has no signs symptom suggestive of recurrence of disease, tolerating Aromasin/vitamin D and calcium well. We will continue with same and return to clinic in 2 months with CBC CMP and iron studies Signed By: Abraham Pulido M.D. <<Signature on File>>
== END 2020-10-29 06:04 | disposition home or self-care (01) ==
LOC: ONCMED 06:03
PROVIDERS: PCP Internal Medicine; Visit Provider Internal Medicine Hematology & Oncology
DX: C50.512 Malignant neoplasm of lower-outer quadrant of left female breast (principal); Z17.0 Estrogen receptor positive status [ER+]; D50.9 Iron deficiency anemia, unspecified; Z79.811 Long term (current) use of aromatase inhibitors; Z79.899 Other long term (current) drug therapy; Z79.4 Long term (current) use of insulin
CPT/HCPCS: 99214

== ENCOUNTER 2020-12-06 07:35 | Emergency (ER) | payer MEDICARE, MEDICAID, SELFPAY ==
--- NOTE | 2020-12-06 07:39 | ED_ITS ---
HPI - Abdominal Pain General: Chief Complaint: Abdominal Pain Stated Complaint: Abdominal Pain Time Seen by Provider: 12/06/20 07:37 History of Present Illness: HPI narrative: Ms. Del Rosario is a 64-year-old lady with complex past medical history including hypertension, hyperlipidemia, diabetes, COPD with chronic hypoxic respiratory failure, atrial fibrillation on anticoagulation, history of GERD who presents emergency department due to epigastric abdominal pain. Symptom onset was gradual approximately 5 days ago. She endorses sharp and aching quality of pain and variable intensity however often moderate to severe. She has had associated nausea but no vomiting. No changes in bowel movements. She notes decreased p.o. intake however does not specifically endorse that symptoms are worse with p.o. intake. She denies similar episodes in the past. No other specific exacerbating or alleviating factors, signs of systemic illness, or other changes reported. Review of Systems General: Reports: 10 or more systems reviewed and unremarkable except in HPI and below PFSH ED PFSH: Medical History Anemia Atrial fibrillation, chronic Chronic venous insufficiency Diabetes Diastolic heart failure History of breast cancer Hypertension Screen for colon cancer Surgical History History of carpal tunnel release of both wrists History of colonoscopy with polypectomy (~08/2019) dr. zacarias jaylene. History of coronary angioplasty with insertion of stent History of coronary artery balloon dilation History of esophagogastroduodenoscopy (EGD) (~08/2019) brandan david. History of lumpectomy Family History Denies family history of Anesthesia complication Bleeding disorder Social History Smoking and tobacco status: former smoker Quit status (tobacco): has quit using tobacco Year quit tobacco: 2016 - 2PPD x 40 Years Alcohol intake: never Counseling given: No Counseling given: No Lives independently: Yes Household members: spouse Marital status: Current occupational status: retired History of recent travel: No Current gender identity: Female Physical Exam Narrative: EXAM NARRATIVE: GENERAL/CONSTITUTIONAL - well-appearing. Uncomfortable due to pain Eyes -no scleral icterus, no conjunctival injection ENMT - Atraumatic external nose and ears. NECK - supple. trachea midline CARDIOVASCULAR -irregularly irregular rhythm, normal rate. RESPIRATORY -clear to auscultation bilaterally. ABDOMEN/GI -mildly tender in epigastric region. Nondistended. No tenderness to percussion or evidence of peritonitis MSK - Extremities without obvious deformity or tenderness to palpation SKIN - Warm, Dry NEURO - alert and appropriately oriented. Moves all extremities equally. Course ED course: - Patient was seen and evaluated by me at bedside - Patient placed on cardiac monitors, IV access obtained - Initial evaluation notable for no acute distress, discomfort due to pain. -Symptom treatment ordered - Labs notable for no significant hematologic abnormality, minor abnormalities noted on metabolic panel without evidence of significant finding to explain patient's symptoms. Urinalysis not concerning for urinary tract infection. - Imaging notable for negative chest x-ray. CT scan without acute finding to explain symptoms however gallbladder is enlarged without secondary evidence of cholecystitis. However, given patient's symptoms and that CT is not the imaging modality of choice for gallbladder pathology ultrasound was ordered. No evidence of cholecystitis. - Upon serial reexamination after treatment the patient was improved - Based on patient history, evaluation, labs, and imaging as interpreted the most likely cause of the patient's condition is unclear abdominal pain - The results of ED evaluation were discussed with the patient including prescriptions and/or symptomatic cares (if applicable) including appropriate and responsible use, followup plan, and return precautions. The patient verbalized understanding and felt safe for discharge. - Patient discharged in satisfactory condition. Vital Signs: Vital signs: Vital Signs Temperature 97.8 F 12/06/20 07:40 Pulse Rate 84 12/06/20 12:58 Respiratory Rate 15 12/06/20 07:40 Blood Pressure 154/103 12/06/20 12:58 Pulse Oximetry 99 12/06/20 12:58 MDM - Abdominal Pain Medical Records: Attestation: I reviewed the patient's medical records. Lab Data: Attestation: I reviewed the patient's lab results. Labs: Lab Results 12/06/20 12/06/20 12/06/20 08:23 08:23 08:23 WBC 8.8 10^3/uL 10^3/ uL (4.0-10.0) RBC 4.71 10^6/uL 10^6 /uL (4.1-5.3) Hgb 13.5 g/dL g/dL (11.5-15.3) Hct 42.1 % % (37.0-47.0) MCV 89.4 fl fl (81-99) MCH 28.7 pg pg (28.0-34.0) MCHC 32.1 g/dL g/dL (30.0-36.0) RDW 14.7 % % (12.1-15.1) Plt Count 297 10^3/cmm 10^3 /cmm (130-400) MPV 9.5 fL fL (7.4-10.4) Neut % (Auto) 81.7 % % Lymph % (Auto) 11.9 % % Gaines % (Auto) 4.9 % % Eos % (Auto) 0.7 % % Baso % (Auto) 0.6 % % Neut # (Auto) 7.16 10^3/uL 10^3 /uL (1.8-7.7) Lymph # (Auto) 1.0 10^3/uL 10^3/ uL (0.8-4.8) Gaines # (Auto) 0.4 10^3/uL 10^3/ uL (0.2-0.9) Eos # (Auto) 0.1 10^3/uL 10^3/ uL (0.0-0.8) Baso # (Auto) 0.1 10^3/uL 10^3/ uL (0.0-0.1) Nucleated RBC % (a uto) 0 % % Nucleated RBCs # 0.0 /100WBC /100W BC Sodium 135 mmol/L L mmol /L (136-145) Potassium 4.1 mmol/L mmol/L (3.5-5.1) Chloride 97 mmol/L L mmol/ L (98-107) Carbon Dioxide 26 mmol/L mmol/L (22-29) Anion Gap 16.1 (5-19) BUN 26 mg/dL H mg/dL (8-23) Creatinine 1.1 mg/dL H mg/dL (0.5-0.9) GFR Calculation 50.0 mL/min L mL/ min (90-130) Glucose 204 mg/dL H mg/dL (65-115) Calculated Osmolal ity 291 mOsm/kg mOsm/ kg (285-295) Calcium 9.9 mg/dL mg/dL (8.5-10.5) Total Bilirubin 0.5 mg/dL mg/dL (0.15-1.2) AST 15 U/L U/L (0-32) ALT 15 U/L U/L (0-33) Alkaline Phosphata se 87 IU/L IU/L (35-105) Troponin T Baselin e 29 ng/L H ng/L (0-10) Troponin T 120 Min [place] Troponin T Total Protein 7.5 g/dL g/dL (6.6-8.7) Albumin 4.0 g/dL g/dL (3.5-5.2) Globulin 3.5 g/dL g/dL (1.3-4.6) Lipase 16 U/L U/L (13-60) Urine Color Urine Appearance Urine pH Ur Specific Gravit y Urine Protein Urine Glucose (UA) Urine Ketones Urine Blood Urine Nitrate Urine Bilirubin Urine Urobilinogen Ur Leukocyte Tyra ase Urine RBC Urine WBC Ur Squamous Epith Cells Amorphous Sediment Urine Bacteria 12/06/20 12/06/20 08:49 10:27 WBC RBC Hgb Hct MCV MCH MCHC RDW Plt Count MPV Neut % (Auto) Lymph % (Auto) Gaines % (Auto) Eos % (Auto) Baso % (Auto) Neut # (Auto) Lymph # (Auto) Gaines # (Auto) Eos # (Auto) Baso # (Auto) Nucleated RBC % (a uto) Nucleated RBCs # Sodium Potassium Chloride Carbon Dioxide Anion Gap BUN Creatinine GFR Calculation Glucose Calculated Osmolal ity Calcium Total Bilirubin AST ALT Alkaline Phosphata se Troponin T Baselin e Troponin T 120 Min [place] 27.97 ng/L H ng/L (0-10) Delta Troponin T -1.03 ABS# L ABS# (0-10) Total Protein Albumin Globulin Lipase Urine Color Yellow (Yellow) Urine Appearance Sl hazy (CLEAR) Urine pH 5 (5-7) Ur Specific Gravit y 1.015 (1.005-1.030) Urine Protein 3+ H (Negative) Urine Glucose (UA) Norm (Normal) Urine Ketones Negative (Negative) Urine Blood 3+ H (Negative) Urine Nitrate Negative (Negative) Urine Bilirubin Neg (Negative) Urine Urobilinogen Norm mg/dL mg/dL (Negative) Ur Leukocyte Tyra ase Trace H (Negative) Urine RBC 5-10 /hpf H /hpf (0-2) Urine WBC Rare /hpf /hpf (0-5) Ur Squamous Epith Cells 0-4 /hpf H /hpf (0-5) Amorphous Sediment Not Reportable Urine Bacteria Trace /hpf /hpf (NONE) EKG Data ^: EKG 1: Attestation: I personally reviewed and interpreted this EKG as follows: EKG interpretation date: 12/06/20 EKG interpretation time: 08:38 Interpretation: Twelve-lead EKG shows a regular rhythm at a rate of 70. ID interval 193, QRS duration 170, QTc 501. Indeterminate axis. Interpretation: Sinus rhythm. Right bundle branch block. Discharge Plan Discharge Patient Disposition: Home Clinical Impression: Abdominal pain, Hypertension Condition: Stable Prescriptions: New ondansetron 4 mg tablet,disintegrating 4 mg PO Q8H 5 Days Qty: 15 RF: 0 No Action Tresiba FlexTouch U-100 100 unit/mL (3 mL) insulin pen 42 unit SUBCUT BID RF: 0 Stiolto Respimat 2.5-2.5 mcg/actuation mist 2 puff inhalation DAILY@07 Qty: 4 RF: 3 clonidine HCl 0.1 mg tablet 0.1 mg PO Q8H RF: 0 amiodarone 200 mg tablet 200 mg PO DAILY@0700 RF: 0 sertraline 100 mg tablet 100 mg PO DAILY RF: 0 simvastatin 10 mg tablet 10 mg PO DAILY@2200 RF: 0 metolazone 5 mg tablet 5 mg PO EVERY OTHER DAY RF: 0 allopurinol 100 mg tablet 100 mg PO DAILY@0700 RF: 0 isosorbide mononitrate 60 mg tablet extended release 24 hr 90 mg PO DAILY@0700 RF: 0 exemestane 25 mg tablet 25 mg PO DAILY@0700 RF: 0 amlodipine 10 mg tablet 10 mg PO DAILY@2200 RF: 0 gabapentin 300 mg capsule 300 mg PO TID@07,, RF: 0 polyethylene glycol 3350 17 gram/dose powder 17 g PO DAILY PRN (Reason: Constipation) RF: 0 potassium chloride 20 mEq tablet extended release 40 meq PO DAILY@0700 RF: 0 aspirin 325 mg Tablet 325 mg PO DAILY@0700 RF: 0 Hold Instructions: Resume on 09/09/19. spironolactone 25 mg tablet 50 mg PO DAILY RF: 0 escitalopram oxalate 10 mg tablet 10 mg PO DAILY RF: 0 cholecalciferol (vitamin D3) 1,250 mcg (50,000 unit) capsule 50,000 unit PO Q7D RF: 0 pantoprazole 40 mg tablet,delayed release (DR/EC) 40 mg PO QAM RF: 0 amitriptyline 25 mg tablet 25 mg PO BEDTIME@2200 RF: 0 insulin aspart U-100 [Novolog Flexpen U-100 Insulin] 100 unit/mL (3 mL) insulin pen 35 unit SUBCUT TID RF: 0 furosemide 80 mg tablet 80 mg PO BID RF: 0 Discharge Orders: Discharge ED (Routine); Ordered 12/06/20 Ordered By: Tera Reis Referrals: Jeanine Solares MD [Primary Care Provider] - Discharge Diet: Advance as tolerated and Clear Liquid Discharge Activity: Resume usual activity Patient Instructions: Abdominal Pain (ED), Hypertension (ED) Activity Restrictions/Additional Instructions: Thank you for visiting the emergency department. You were seen and evaluated for abdominal pain. The exact cause of your symptoms is unclear. CT scan did not show an obvious reason, no significant laboratory abnormalities requiring hospitalization were identified. As discussed, your gallbladder is enlarged however no evidence of infection was found. Sometimes enlarged gallbladder is can cause discomfort, this can be further evaluated by your primary care provider with consideration for outpatient surgical follow-up. Additionally the radiologist noted: Indeterminant solid enhancing lesion right adrenal gland measuring 4.6 x 3.3 CM. This could be further evaluated with adrenal protocol CT. Please follow-up with your primary care provider for this finding. Other considerations for your symptoms would be mild irritation of the stomach or even ulcers that do not show up well on CT scan. You may use [id number]-vya-jjnttlj medications for your symptoms, please avoid NSAIDs such as ibuprofen or naproxen. Please continue to take your proton pump inhibitor or H2 walter. You may use other kwoc-yoi-qtyqbuu medications for your symptoms. Please return to the emergency department for worsening symptoms, inability to tolerate oral intake, or anything else that you are concerned about and feel needs emergency department evaluation. Coding Level of Care Code ED [employer] Intelligence Analyst for Tang Ambrosio
[2020-12-06 07:40] VITALS: BP 210/91; PULSE 85; RESP 15; TEMP 36.6; O2SAT 96; BMI 47.1
--- NOTE | 2020-12-06 07:56 | XR_ITS ---
WS: [id number] Portable AP upright chest, 12/06/2020 Clinical Data: epigastric/chest pain Comparison: PA and lateral chest, 10/05/2020. Findings: No nodules, masses or effusions are seen. The heart is normal. The pulmonary vascularity is not increased. No pneumonia or pneumothorax is seen. The opacity in the right upper lobe noted on th e prior examination is no longer present. XR/XR chest 1V portable [id number] Impression: Negative chest.
--- NOTE | 2020-12-06 07:56 | CT_ITS ---
WS: [id number] CT ABDOMEN PELVIS TECHNIQUE: Contrast-enhanced CT of the abdomen and pelvis with coronal and sagittal reformatted image s. CLINICAL INFORMATION: epigastric abdominal pain COMPARISON: CT January 25, 2020 DLP: 1786.[address] scans at [facility] use at least one of these dose optimization techniques: automated e xposure control; mA and/or kV adjustment per patient size (includes targeted exams where dose is matc hed to clinical indication); or iterative reconstruction. FINDINGS: Normal liver. Normal portal vein and splenic vein. Fluid distended hydropic gallbladder. No gallbladd er wall thickening or pericholecystic fluid. Small esophageal hiatal hernia. Lung bases are well aera raimundo. Stable left adrenal myelolipoma measuring 1.4 CM. Heterogeneously enhancing solid right adrenal lesion measuring 4.6 x 3.3 cm unchanged. Normal renal parenchymal enhancement. No hydronephrosis. A f ew tiny renal cysts. Mild fatty atrophy of the pancreas. Aortic calcification. Normal caliber abdomin al aorta. Sigmoid diverticulosis. No evidence of acute diverticulitis. No evidence of high-grade small or large bowel obstruction. Moderate spondylitic changes lumbar spine. Lumbar curve convex left. Disc space narrowing with vacuum disc phenomenon throughout the lumbar spine. CT/CT abdomen pelvis w con* [id number] IMPRESSION: 1. Fluid distended hydropic gallbladder measuring 12.8 cm. This can be further evaluated with ultrasound. No pericholecystic fluid. 2. Stable left adrenal myelolipoma. Indeterminant solid enhancing lesion right adrenal gland measuring 4.6 x 3.3 CM. This could be further evaluated with adr enal protocol CT. 3. Sigmoid diverticulosis. No evidence of acute diverticulitis. 4. No hydronephrosis in either kidney. 5. No other acute findings.
--- NOTE | 2020-12-06 07:58 | ECG_ITS ---
[facility] Test Date: 2020-12-06 Pat Name: Seema Del Rosario Department: Room: Gender: Female Special Education Para Professional: : 1955 Requested By: Tera Reis Order Number: [id number] Jennie MD: BOB WORLEY Measurements Intervals [place] Rate: 70 P: 61 MN: 193 QRS: -57 QRSD: 170 T: 43 QT: 481 QTc: 520 Interpretive Statements SINUS RHYTHM INDETERMINATE AXIS RIGHT BUNDLE BRANCH BLOCK [120+ ms QRS DURATION, UPRIGHT V1, 40+ ms S IN I/aVL/V4/V5/V6] LEFT ANTERIOR FASCICULAR BLOCK [QRS AXIS <= -45, QR IN I, RS IN II] SEPTAL MYOCARDIAL INFARCTION , OF INDETERMINATE AGE [40+ ms Q WAVE IN V1/V2] Compared to ECG 01/25/2020 14:51:12 Indeterminate axis now present Left anterior fascicular block now present Myocardial infarct finding now present Left-axis deviation no longer present Electronically Signed On 12-06-2020 13:56:40 CDT by BOB WORLEY [email or web address]
[2020-12-06] MEDS: morphine 4 mg/mL SDV 1 mL IVP ×2 (08:16→11:46)
[2020-12-06] MEDS: lidocaine 2% viscous 15 ML, aluminum-mag hydrox-simethicon 30 ML, sucralfate oral liq 1 GM PO (08:17)
[2020-12-06] MEDS: ondansetron 2 mg/ML SDV 2 mL 4 MG IVP (08:17)
[2020-12-06 08:43] VITALS: BP 190/83; PULSE 78; O2SAT 98
[2020-12-06 08:45] LABS: Basophils # 0.1 10^3/uL (0.0-0.1); Basophils % 0.6 %; Eosinophils # 0.1 10^3/uL (0.0-0.8); Eosinophils % 0.7 %; Hematocrit 42.1 % (37.0-47.0); Hemoglobin 13.5 g/dL (11.5-15.3); Lymphocytes % 11.9 %; Mean Corpuscular HGB Conc 32.1 g/dL (30.0-36.0); Mean Corpuscular Hemoglobin 28.7 pg (28.0-34.0); Mean Corpuscular Volume 89.4 fl (81-99); Mean Platelet Volume 9.5 fL (7.4-10.4); Monocytes # 0.4 10^3/uL (0.2-0.9); Monocytes % 4.9 %; Neutrophils # 7.16 10^3/uL (1.8-7.7); Neutrophils % 81.7 %; Nucleated Red Blood Cells % 0 %; Platelet Count 297 10^3/cmm (130-400); Red Blood Count 4.71 10^6/uL (4.1-5.3); Red Cell Distribution Width 14.7 % (12.1-15.1); White Blood Count 8.8 10^3/uL (4.0-10.0)
[2020-12-06 09:02] VITALS: BP 188/80; PULSE 68; O2SAT 99
[2020-12-06 09:02] LABS: Alanine Aminotransferase 15 U/L (0-33); Alkaline Phosphatase 87 IU/L (35-105); Anion Gap 16.1 (5-19); Aspartate Amino Transferase 15 U/L (0-32); Blood Urea Nitrogen 26 mg/dL (8-23); Calcium 9.9 mg/dL (8.5-10.5); Carbon Dioxide 26 mmol/L (22-29); Chloride 97 mmol/L (98-107); Globulin 3.5 g/dL (1.3-4.6); Glucose 204 mg/dL (65-115); Lipase 16 U/L (13-60); Osmolality Calculated 291 mOsm/kg (285-295); Potassium 4.1 mmol/L (3.5-5.1); Sodium 135 mmol/L (136-145); Total Bilirubin 0.5 mg/dL (0.15-1.2); Total Protein 7.5 g/dL (6.6-8.7); Troponin(5th) Baseline 29 ng/L (0-10)
[2020-12-06] MEDS: iohexol 300 mg/mL 100 mL Btl IV (09:16)
[2020-12-06 09:17] LABS: Add Urine Microscopic? YES; Bilirubin Urine Neg (Negative); Blood Urine 3+ (Negative); Glucose Urine UA Norm (Normal); Ketones Urine Negative (Negative); Leukocyte Esterase Urine Trace (Negative); Nitrate Urine Negative (Negative); Protein Urine 3+ (Negative); Specific Gravity, Urine 1.015 (1.005-1.030); Urine Appearance SL Hazy (CLEAR); Urine Color Yellow (Yellow); Urobilinogen Urine Norm (Negative); pH Urine 5 (5-7)
[2020-12-06 09:19] LABS: Add Urine Culture? No; Bacteria Urine TRACE /hpf; Squamous Epithelial Cell Urine 0-4 /hpf (0-5); WBC Urine RARE /hpf (0-5)
--- NOTE | 2020-12-06 09:38 | PC.PHAR ---
PT STATES SHE TAKES CARE OF HER OWN MEDICATIONS-PT STATES SHE TAKES IMDUR 90MG DAILY EXT MED HISTORY SHOWS LAST FILLED 11/30/20 30MG DAILY-NOTES ARE MADE IN THE PHARMACY COMMENTS-
--- NOTE | 2020-12-06 09:48 | US_ITS ---
WS: [id number] ULTRASOUND ABDOMEN LIMITED CLINICAL INFORMATION: RUQ, biliary eval, abnormal ct COMPARISON: None. FINDINGS: Bile ducts Common bile duct diameter: 0.6 cm. Gallbladder Fluid distended hydropic gallbladder. No cholelithiasis or sludge. Negative Mcnair sign. No evidence of cholecystitis. Gallstones: None. Gallbladder sludge: None. Gallbladder wall thickening: None. Pericholecystic fluid: None. Sonographic Mcnair sign: Absent. US/US abdomen limited [id number] IMPRESSION: 1. Fluid distended hydropic gallbladder. No evidence of cholecystitis. 2. Normal common bile duct. 3. No cholelithiasis.
[2020-12-06 10:18] VITALS: BP 191/86; PULSE 71; O2SAT 99
[2020-12-06] MEDS: cloNIDine 0.1 mg Tablet PO (10:20)
[2020-12-06 10:59] LABS: Troponin 5 2HR 27.97 ng/L (0-10)
[2020-12-06] MEDS: hyDRALAzine 20 mg/mL INJ 1 mL 10 MG IVP ×2 (11:14→12:28)
[2020-12-06 11:24] LABS: Troponin 5 2HR Delta -1.03 ABS# (0-10)
[2020-12-06] MEDS: spironolactone 25 mg Tablet 50 MG PO (11:45)
[2020-12-06] MEDS: isosorbide mononitrate ER 30 mg Tablet 90 MG PO (11:45)
[2020-12-06] MEDS: amlodipine 10 mg Tablet PO (11:46)
[2020-12-06 12:09] VITALS: BP 220/104; PULSE 72; O2SAT 98
[2020-12-06 12:58] VITALS: BP 154/103; PULSE 84; O2SAT 99
== END 2020-12-06 13:00 | disposition home or self-care (01) ==
PROVIDERS: Emergency Provider Emergency Medicine; PCP Internal Medicine
DX: R10.9 Unspecified abdominal pain (principal); Z79.4 Long term (current) use of insulin; Z79.82 Long term (current) use of aspirin; E11.9 Type 2 diabetes mellitus without complications; I11.0 Hypertensive heart disease with heart failure; I50.30 Unspecified diastolic (congestive) heart failure; Z85.3 Personal history of malignant neoplasm of breast; Z95.5 Presence of coronary angioplasty implant and graft; Z87.891 Personal history of nicotine dependence
CPT/HCPCS: 71045; 74177; 76705; 80053; 81001; 83690; 84484; 85025; 93005; 96374; 96375; 96376; 99284; J0360; J2270; J2405; Q9967

== ENCOUNTER 2020-12-31 11:22 | Outpatient (CLI) | payer MEDICARE, MEDICAID, SELFPAY ==
[2020-12-31 12:11] LABS: Basophils # 0.1 10^3/uL (0.0-0.1); Basophils % 0.7 %; Eosinophils # 0.2 10^3/uL (0.0-0.8); Eosinophils % 3.3 %; Hematocrit 35.3 % (37.0-47.0); Hemoglobin 11.1 g/dL (11.5-15.3); Lymphocytes # 1.5 10^3/uL (0.8-4.8); Lymphocytes % 21.5 %; Mean Corpuscular HGB Conc 31.4 g/dL (30.0-36.0); Mean Corpuscular Hemoglobin 29.4 pg (28.0-34.0); Mean Corpuscular Volume 93.4 fl (81-99); Mean Platelet Volume 9.6 fL (7.4-10.4); Monocytes # 0.5 10^3/uL (0.2-0.9); Monocytes % 6.9 %; Neutrophils # 4.64 10^3/uL (1.8-7.7); Nucleated Red Blood Cells % 0 %; Platelet Count 255 10^3/cmm (130-400); Red Blood Count 3.78 10^6/uL (4.1-5.3); White Blood Count 6.9 10^3/uL (4.0-10.0)
[2020-12-31 12:34] LABS: Alanine Aminotransferase 14 U/L (0-33); Albumin Level 3.7 g/dL (3.5-5.2); Alkaline Phosphatase 77 IU/L (35-105); Anion Gap 16.9 (5-19); Aspartate Amino Transferase 14 U/L (0-32); Blood Urea Nitrogen 35 mg/dL (8-23); Calcium 9.4 mg/dL (8.5-10.5); Carbon Dioxide 26 mmol/L (22-29); Chloride 100 mmol/L (98-107); Ferritin 233 ng/mL (15-150); Globulin 3.3 g/dL (1.3-4.6); Glucose 87 mg/dL (65-115); Iron 83 ug/dL (37-145); Osmolality Calculated 293 mOsm/kg (285-295); Percent Saturation 37.2 % (20-50); Potassium 4.9 mmol/L (3.5-5.1); Sodium 138 mmol/L (136-145); Total Bilirubin 0.3 mg/dL (0.15-1.2); Total Iron Binding Capacity 223 mcg/dl; Unsaturated Iron Binding 140 ug/dL (112-347)
== END 2020-12-31 11:23 | disposition home or self-care (01) ==
LOC: ONCMED 11:25
PROVIDERS: PCP Internal Medicine; Visit Provider Internal Medicine Hematology & Oncology
DX: C50.512 Malignant neoplasm of lower-outer quadrant of left female breast (principal); Z17.0 Estrogen receptor positive status [ER+]; E11.9 Type 2 diabetes mellitus without complications; E78.5 Hyperlipidemia, unspecified; J44.9 Chronic obstructive pulmonary disease, unspecified; M19.90 Unspecified osteoarthritis, unspecified site; Z79.899 Other long term (current) drug therapy
CPT/HCPCS: 36415; 80053; 82728; 83540; 83550; 85025

== ENCOUNTER 2021-01-03 06:33 | Outpatient (CLI) | payer MEDICARE, MEDICAID, SELFPAY ==
--- NOTE | 2021-01-06 19:25 | ONC FU_ITS ---
Dr. Pulido follow up note Patient: Seema Del Rosario Unit #: [id number]: 1955 Dicatated By: Abraham Pulido M.D.Date of Visit:Jan 03, 2021 Onc Med Follow-up/Prog Note History of Present Illness: Mrs. Del Rosario is a 65-year-old female with left breast cancer. She is status post left partial mastectomy with axillary sentinel lymph node biopsy performed on 09/01/2016. Her final pathology at that time reported infiltrating ductal carcinoma grade 1 with clear surgical margins, tumor dimensions 3.6 x 1.5, positive lymphovascular space invasion, left axillary lymph node biopsy #1 showed benign lymph node with no metastatic tumor identified and left axillary lymph node biopsy #2 reported benign adipose tissue with no lymph node abnormalities identified. The breast cancer prognostic profile showed Ki 67 analysis at 4% reported as favorable, ER assay 100% (ER positive), progesterone receptor assay 83% (CA positive) and HER-2/ebssy status: negative by IHC and FISH over amplification She presented to her PCP in with chest pain. A CTA was done to rule out PE and it came back negative but there was a incidental finding of a left breast lump. As this was seen on the CT scan, a mammogram and sonogram was done. Subsequently, she underwent ultrasound-guided biopsy of left breast and was found to have infiltrating ductal carcinoma. On 09/01/2016, she underwent partial mastectomy. Postop. Complicated by development of hematoma due to aspirin which eventuall resolved . She tried Arimidex for 1 week and developed joint pains and muscle aches just prior to a hospital admission. She stopped taking Arimidex and was switched to Aromasin and has tolerated it well. She pesented with lower extremity pain/discomfort and underwent great saphenous vein ablation of left side for symptomatic varicose vein. As per patient's report the procedure didn't help her much. In December 2017, she had a venous Doppler study of lower extremity that showed no DVTs. Howeer, a lower extremity arterial study showed evidence of peripheral vascular disease. Repeat venous Doppler study done on 07/16/2018 showed no evidence of DVT in left lower extremity. Mammogram done on 09/09/2018 shows BI-RADS 2: benign. Ms. Del Rosario has remained on routine follow-up as she continues the Aromasin, vitamin D and calcium. She is tolerated this well. She was given iron dextran 1000 mg on April 26, 2020 for iron deficiency anemia. Her hemoglobin at that time was 9.6 and her iron saturation was 8.4 with a ferritin of 11 and total iron of 25. Tolerating Aromasin well along with vitamin D and calcium Came for follow-up, denies any specific complaints, overall feeling better, no new bony pains, no melena hematochezia no hemoptysis hematemesis, no palpitation, no chest pain overall feeling well, patient on home oxygen, tolerating Aromasin along with vitamin D and calcium well Medications: Advair Diskus 1 puff(s) (of 250-50 mcg/dose) Aerosol Powder, Breath Activated Inhalation b.i.d., Albuterol Sulfate 2 puff(s) (of 108 (90 base) mcg/act) Aerosol Powder, Breath Activated Inhalation q 4 hours, Allopurinol 1 Tablet (of 100 mg) Oral daily, Amiodarone HCl 1 Tablet (of 200 mg) Oral daily, AmLODIPine Besylate 1 Tablet (of 10 mg) Oral daily, Aspirin EC 1 (325 mg) Tablet, enteric coated Oral daily, cloNIDine HCl 3 Tablet Oral daily, Escitalopram Oxalate 1 (20 mg) Tablet Oral daily, Exemestane 1 (25 mg) Tablet Oral daily, Gabapentin 1 Capsule (of 300 mg) Oral t.i.d., Isosorbide Mononitrate ER 1.5 Tablet (of 60 mg) Tablet SR 24 HR Oral every am, lasix 1 Tablet (of 80 mg) b.i.d., NovoLOG 35 Unit(s) (of 100 Units/mL) Subcutaneous t.i.d., Simvastatin 1 (10 mg) Tablet Oral at bedtime, Spiriva HandiHaler 1 Capsule (of 18 mcg) Inhalation daily, Tresiba FlexTouch 42 Unit(s) Subcutaneous b.i.d. Allergies: Anastrozole Review of Systems: Review of Systems is not available for this patient. Vital Signs: Performed on Jan 03, 2021 13:45 Height - 66.00 in Weight - 293.3 lbs (LOW) BSA - 2.35 sq.m BMI - 47.34 (HIGH) Temperature - 97.6 F (LOW) Pulse - 65 /min Respiration - 20 /min BP - 137/67 mm(hg) O2 Sat - 96 % Pain - 0 Fatigue - 8 Performance Status: 2 - Ambulatory/capable of all self-care, unable to perform any work activities. Up and about more than 50% of waking hours. (ECOG) Physical Examination: Respiratory - Lungs are clear to auscultation, Cardiovascular - Regular rate and rhythm of heart, Gastrointestinal - Soft, bowel sounds present, Extremities - Trace edema bilaterally. Lab/Imaging: Test performed on Oct 16, 2020 09:13 Glucose 91 mg/dL BUN 56 mg/dL Cr Clearance (Est) 117.31 mL/min BUN/Creatinine Ratio 31 Absolute Value Sodium 143 mmol/L Creatinine 1.02 mg/dL Potassium 3.6 mmol/L Chloride 99 mmol/L CO2 27 mmol/L Calcium 9.5 mg/dL Phosphorous 4.5 mg/dL Albumin 3.7 g/dL WBC 10.7 10^9/L RBC 3.79 10^12/L HGB 10.8 g/dL HCT 32.7 % MCV 86 fl MCH 28.5 pg MCHC 33.0 g/dL RDW 14.2 % Platelet Count 325 10^9/L Neutrophils (Gran) 8.1 10^9/L Lymphocytes 1.391 10^9/L Monocytes 0.749 10^9/L Eosinophils 0.214 10^9/L Basophils 0.107 10^9/L Manual Segs 75 % Test performed on Jul 23, 2020 11:30 Vitamin B12 385 pg/mL Test performed on Jul 23, 2020 08:35 MPV 9.9 fL Neutrophil % 76.3 % Lymphocyte % 14.1 % Monocyte % 5.8 % Eosinophil % 2.4 % Basophils % 0.8 % NRBC % 0 % Impression: Infiltrating ductal carcinoma of left breast status post partial mastectomy on 09/01/2016 final path report tumor size 3.6 x 1.5 cm , grade 1 clear margins , sentinel lymph node negative for metastatic disease, ER/CA positive HER-2/bessy negative by IHC and over amplification by FISH. T2, N0 ( sentinal node) ,Mx stage IIA Oncotype DX low risk recurrence score 3 Started on Arimidex on 10/16/2016 took it for 1 week then discontinued because of joint pains and muscle aches Started on exemestane 25 mg daily on 01/22/2017. For 5 years Recent Episode of atrial fibrillation status post cardioversion Newly diagnosed anemia normocytic normochromic ? etiology , could be due to diagnostic phlebotomy for lab workup during hospitalization, or blood loss due to anticoagulation for A. fib, patient denies any melena hematochezia., Intolerance to oral iron, Responded well to parenteral iron Follow-up mammogram done on 09/08/2017 showed BI-RADS 2-benign. Venous Doppler study of lower extremity done in December 2017 showed no evidence of DVTs but arterial study showed peripheral vascular disease. status post left great saphenous vein ablation Follow-up mammogram done on September 12, 2019 showed BI-RADS 2, benign EGD done on September 07, 2019 showed reflux disease, moderate hiatal hernia without obstruction no evidence of bleeding and colonoscopy done on September 07, 2019 showed 2 mm polyp in descending colon and one in rectum both were removed. No evidence of malignancy or bleeding Plan: Discussed with patient regarding her labs white blood count 6.9 hemoglobin 11.1 g compared to 10.5 earlier in October 2020 hematocrit 35.3 platelets 255,000 CMP within normal limit except creatinine two compared to 1.02 previously iron studies shows iron saturation 37.2% ferritin 233, iron eighty-three TIBC 223 Clinically, patient is doing well with no new signs symptoms suggestive of recurrence of breast cancer, tolerating Aromasin/vitamin D/calcium well As far as anemia is concerned, appears multifactorial, her hemoglobin continued to improve, her iron studies shows adequate iron stores. Mild renal insufficiency, progressive, patient is being followed by nephrology She will return to clinic in 3 months with CBC Signed By: Abraham Pulido M.D. <<Signature on File>>
== END 2021-01-03 06:34 | disposition home or self-care (01) ==
LOC: ONCMED 06:34
PROVIDERS: PCP Internal Medicine; Visit Provider Internal Medicine Hematology & Oncology
DX: C50.812 Malignant neoplasm of overlapping sites of left female breast (principal); Z17.0 Estrogen receptor positive status [ER+]; Z90.12 Acquired absence of left breast and nipple; Z79.811 Long term (current) use of aromatase inhibitors; E55.9 Vitamin D deficiency, unspecified; D50.9 Iron deficiency anemia, unspecified; Z79.899 Other long term (current) drug therapy; I73.9 Peripheral vascular disease, unspecified; Z86.010 Personal history of colon polyps; Z92.21 Personal history of antineoplastic chemotherapy; Z79.52 Long term (current) use of systemic steroids
CPT/HCPCS: 99214

== ENCOUNTER 2021-04-05 09:20 | Outpatient (CLI) | payer MEDICARE, MEDICAID, SELFPAY ==
[2021-04-05 09:48] LABS: Basophils # 0.1 10^3/uL (0.0-0.1); Basophils % 0.7 %; Eosinophils # 0.3 10^3/uL (0.0-0.8); Eosinophils % 2.7 %; Hematocrit 36.6 % (37.0-47.0); Hemoglobin 11.9 g/dL (11.5-15.3); Lymphocytes # 1.6 10^3/uL (0.8-4.8); Mean Corpuscular HGB Conc 32.5 g/dL (30.0-36.0); Mean Corpuscular Hemoglobin 31.5 pg (28.0-34.0); Mean Corpuscular Volume 96.8 fl (81-99); Mean Platelet Volume 9.7 fL (7.4-10.4); Monocytes # 0.7 10^3/uL (0.2-0.9); Monocytes % 6.7 %; Neutrophils # 7.92 10^3/uL (1.8-7.7); Neutrophils % 74.3 %; Nucleated Red Blood Cells % 0 %; Platelet Count 289 10^3/cmm (130-400); Red Blood Count 3.78 10^6/uL (4.1-5.3); Red Cell Distribution Width 13.3 % (12.1-15.1); White Blood Count 10.7 10^3/uL (4.0-10.0)
== END 2021-04-05 09:21 | disposition home or self-care (01) ==
PROVIDERS: PCP Internal Medicine; Visit Provider Internal Medicine Hematology & Oncology
DX: Z85.3 Personal history of malignant neoplasm of breast (principal)
CPT/HCPCS: 36415; 85025

== ENCOUNTER 2021-04-08 13:01 | Outpatient (CLI) | payer MEDICARE, MEDICAID, SELFPAY ==
--- NOTE | 2021-04-08 16:30 | ONC FU_ITS ---
Stephany Thompson Progress Note Patient: Seema Del Rosario Unit #: [id number]: 1955 Dicatated By: Stephany Thompson N.P.Date of Visit:Apr 08, 2021 Onc MED Follow-up/Prog Note Chief Complaint: Left breast cancer ER/WV positive HER-2/bessy negative History of Present Illness: Mrs. Del Rosario is a 65-year-old female with left breast cancer. She is status post left partial mastectomy with axillary sentinel lymph node biopsy performed on 09/01/2016. Her final pathology at that time reported infiltrating ductal carcinoma grade 1 with clear surgical margins, tumor dimensions 3.6 x 1.5, positive lymphovascular space invasion, left axillary lymph node biopsy #1 showed benign lymph node with no metastatic tumor identified and left axillary lymph node biopsy #2 reported benign adipose tissue with no lymph node abnormalities identified. The breast cancer prognostic profile showed Ki 67 analysis at 4% reported as favorable, ER assay 100% (ER positive), progesterone receptor assay 83% (WV positive) and HER-2/bessy status: negative by IHC and FISH over amplification She presented to her PCP in with chest pain. A CTA was done to rule out PE and it came back negative but there was a incidental finding of a left breast lump. As this was seen on the CT scan, a mammogram and sonogram was done. Subsequently, she underwent ultrasound-guided biopsy of left breast and was found to have infiltrating ductal carcinoma. On 09/01/2016, she underwent partial mastectomy. Postop. Complicated by development of hematoma due to aspirin which eventuall resolved . She tried Arimidex for 1 week and developed joint pains and muscle aches just prior to a hospital admission. She stopped taking Arimidex and was switched to Aromasin and has tolerated it well. She pesented with lower extremity pain/discomfort and underwent great saphenous vein ablation of left side for symptomatic varicose vein. As per patient's report the procedure didn't help her much. In December 2017, she had a venous Doppler study of lower extremity that showed no DVTs. Howeer, a lower extremity arterial study showed evidence of peripheral vascular disease. Repeat venous Doppler study done on 07/16/2018 showed no evidence of DVT in left lower extremity. Mammogram done on 09/09/2018 shows BI-RADS 2: benign. Ms. Del Rosario has remained on routine follow-up as she continues the Aromasin, vitamin D and calcium. She is tolerated this well. She was given iron dextran 1000 mg on April 26, 2020 for iron deficiency anemia. Her hemoglobin at that time was 9.6 and her iron saturation was 8.4 with a ferritin of 11 and total iron of 25. Tolerating Aromasin well along with vitamin D and calcium Patient presents today for follow-up. States she has been feeling well. She does require a wheelchair at times for long distance ambulation. Her appetite has been good. She denies fever, chills, night sweats. She does have shortness of breath with activity which is a chronic condition. No cough or chest pain. No GI or problems. She is tolerating her Aromasin well. Review Of Symptoms: See above. Past Medical History: Chronic obstructive pulmonary disease Diabetes type II Hyperlipidemia Osteoarthritis Past Surgical History: Covid vaccine #2 in 2020 Covid vaccine #1 in 2020 Breast biopsy in 2016 Angioplasty in 2016 Allergies: Anastrozole Medications: Advair Diskus 1 puff(s) (of 250-50 mcg/dose) Aerosol Powder, Breath Activated Inhalation b.i.d. Albuterol Sulfate 2 puff(s) (of 108 (90 base) mcg/act) Aerosol Powder, Breath Activated Inhalation q 4 hours Allopurinol 1 Tablet (of 100 mg) Oral daily Amiodarone HCl 1 Tablet (of 200 mg) Oral daily AmLODIPine Besylate 1 Tablet (of 10 mg) Oral daily Aspirin EC 1 (325 mg) Tablet, enteric coated Oral daily cloNIDine HCl 3 Tablet Oral daily Escitalopram Oxalate 1 (20 mg) Tablet Oral daily Exemestane 1 (25 mg) Tablet Oral daily Gabapentin 1 Capsule (of 300 mg) Oral t.i.d. Isosorbide Mononitrate ER 1.5 Tablet (of 60 mg) Tablet SR 24 HR Oral every am lasix 1 Tablet (of 80 mg) b.i.d. NovoLOG 35 Unit(s) (of 100 Units/mL) Subcutaneous t.i.d. Simvastatin 1 (10 mg) Tablet Oral at bedtime Spiriva HandiHaler 1 Capsule (of 18 mcg) Inhalation daily Tresiba FlexTouch 42 Unit(s) Subcutaneous b.i.d. Family History: Ms. Del Rosario's mother at age 40. Ms. Del Rosario's father at age 65: cancer unspecified, and heart disease. Social History: Ms. Del Rosario is and she is unemployed. Ms. Del Rosario no longer smokes but had smoked 1.0 pack/day for 49 years. She has no history of drinking. She has indicated exposure to the following products: cigarettes. Ms. Del Rosario reports the following support systems: lives with spouse, significant other, family, or friends, lives in own house, supportive family/friends willing to assist with needs, and adequate transportation available for expected visits. Her diet consists of regular meals. She indicates her activity level as: daily activities. Patient quit smoking in March of 2016. Physical Examination: Performed on Apr 08, 2021 13:20: Height - 66.00 in, Weight - 298.4 lbs (HIGH), BSA - 2.37 sq.m, BMI - 48.16 (HIGH), Temperature - 97.4 F (LOW), Pulse - 78 /min, Respiration - 18 /min, BP - 180/69 mm(hg) (HIGH), O2 Sat - 95 % (LOW), Pain - 0, and Fatigue - 7. Performance Status: 2 - Ambulatory/capable of all self-care, unable to perform any work activities. Up and about more than 50% of waking hours. (ECOG) Constitutional Alert, cooperative, oriented. Mood and affect appropriate. Appears close to chronological age. Well nourished. Well developed. Head Normocephalic; no scars. Eyes Conjunctivae and sclerae are clear and without icterus. Pupils are reactive and equal. Respiratory Lungs are clear to auscultation without rhonchi or wheezing. Cardiovascular Regular rate and rhythm of heart without murmurs, gallops or rubs. Abdomen Non-tender, non-distended, no masses, ascites or hepatosplenomegaly. Good bowel sounds. No guarding or rebound tenderness. Musculoskeletal No tenderness or swelling, generalized weakness Psychiatric Alert and oriented times three. Coherent speech. Verbalizes understanding of our discussions today. Laboratory: Test performed on Oct 16, 2020 09:13 Glucose 91 mg/dL BUN 56 mg/dL Cr Clearance (Est) 117.31 mL/min BUN/Creatinine Ratio 31 Absolute Value Sodium 143 mmol/L Creatinine 1.02 mg/dL Potassium 3.6 mmol/L Chloride 99 mmol/L CO2 27 mmol/L Calcium 9.5 mg/dL Phosphorous 4.5 mg/dL Albumin 3.7 g/dL WBC 10.7 10^9/L RBC 3.79 10^12/L HGB 10.8 g/dL HCT 32.7 % MCV 86 fl MCH 28.5 pg MCHC 33.0 g/dL RDW 14.2 % Platelet Count 325 10^9/L Neutrophils (Gran) 8.1 10^9/L Lymphocytes 1.391 10^9/L Monocytes 0.749 10^9/L Eosinophils 0.214 10^9/L Basophils 0.107 10^9/L Manual Segs 75 % Impression: Infiltrating ductal carcinoma of left breast status post partial mastectomy on 09/01/2016 final path report tumor size 3.6 x 1.5 cm , grade 1 clear margins , sentinel lymph node negative for metastatic disease, ER/WV positive HER-2/bessy negative by IHC and over amplification by FISH. T2, N0 ( sentinal node) ,Mx stage IIA Oncotype DX low risk recurrence score 3 Started on Arimidex on 10/16/2016 took it for 1 week then discontinued because of joint pains and muscle aches Started on exemestane 25 mg daily on 01/22/2017. For 5 years Recent Episode of atrial fibrillation status post cardioversion Newly diagnosed anemia normocytic normochromic ? etiology , could be due to diagnostic phlebotomy for lab workup during hospitalization, or blood loss due to anticoagulation for A. fib, patient denies any melena hematochezia., Intolerance to oral iron, Responded well to parenteral iron Follow-up mammogram done on 09/08/2017 showed BI-RADS 2-benign. Venous Doppler study of lower extremity done in December 2017 showed no evidence of DVTs but arterial study showed peripheral vascular disease. status post left great saphenous vein ablation Follow-up mammogram done on September 12, 2019 showed BI-RADS 2, benign EGD done on September 07, 2019 showed reflux disease, moderate hiatal hernia without obstruction no evidence of bleeding and colonoscopy done on September 07, 2019 showed 2 mm polyp in descending colon and one in rectum both were removed. No evidence of malignancy or bleeding Plan: Labs were discussed with patient. She has a history of anemia but her hemoglobin stabilized at 11.9. Other labs are within normal limits. Her last mammogram was in August 2020. We will plan to schedule her follow-up at next visit in 3 months. She is tolerating Aromasin, vitamin D and calcium well. Mild renal insufficiency, progressive, patient is being followed by nephrology She will return to clinic in 3 months with CBC Signed By: Stephany Thompson N.Adriana. <<Signature on File>>
== END 2021-04-08 13:02 | disposition home or self-care (01) ==
LOC: ONCMED 13:01
PROVIDERS: PCP Internal Medicine; Visit Provider Nurse Practitioner Family
DX: Z85.3 Personal history of malignant neoplasm of breast (principal); I10 Essential (primary) hypertension; I48.91 Unspecified atrial fibrillation; E11.9 Type 2 diabetes mellitus without complications; D50.9 Iron deficiency anemia, unspecified; E78.5 Hyperlipidemia, unspecified; M19.90 Unspecified osteoarthritis, unspecified site; Z79.899 Other long term (current) drug therapy; Z87.891 Personal history of nicotine dependence
CPT/HCPCS: 99214

== ENCOUNTER 2021-04-26 09:38 | Outpatient (CLI) | payer MEDICARE, MEDICAID, SELFPAY | END 2021-04-26 09:39 | disposition home or self-care (01) | LOC: WOUND 09:39 | PROVIDERS: PCP Internal Medicine; Visit Provider Surgery | DX: E11.622 Type 2 diabetes mellitus with other skin ulcer (principal); I87.2 Venous insufficiency (chronic) (peripheral); I96 Gangrene, not elsewhere classified; L97.321 Non-pressure chronic ulcer of left ankle limited to breakdown of skin; Z87.891 Personal history of nicotine dependence | CPT/HCPCS: 11042; 99213; A6252 ==

== ENCOUNTER 2021-04-29 14:04 | Outpatient (CLI) | payer MEDICARE, MEDICAID, SELFPAY | END 2021-04-29 14:05 | disposition home or self-care (01) | LOC: WOUND 14:06 | PROVIDERS: PCP Internal Medicine; Visit Provider Thoracic Surgery (Cardiothoracic Vascular Surgery) | DX: E11.621 Type 2 diabetes mellitus with foot ulcer (principal); L97.822 Non-pressure chronic ulcer of other part of left lower leg with fat layer exposed; I87.2 Venous insufficiency (chronic) (peripheral) | CPT/HCPCS: 29581; A6252 ==

== ENCOUNTER 2021-05-03 13:01 | Outpatient (CLI) | payer MEDICARE, MEDICAID, SELFPAY ==
--- NOTE | 2021-05-03 13:06 | CT_ITS ---
WS: [id number] LDCT LUNG CANCER SCREENING TECHNIQUE: Noncontrast CT of the chest with coronal and sagittal reformatted images. CLINICAL INFORMATION: History of Nicotine Dependence COMPARISON: CT April 23, 2020 DLP: 156.81 mGy.cm DIvol: Mean CTDIvol: 3.40 (mGy) All CT scans at [facility] use at least one of these dose optimization techniques: automat ed exposure control; mA and/or kV adjustment per patient size (includes targeted exams where dose is matched to clinical indication); or iterative reconstruction. FINDINGS: A few tiny stable 2-3 mm noncalcified nodules RIGHT lower lobe along the fissure, RIGHT middle lobe, and LEFT lower lobe. Some of these are better visualized today due to improved motion artifact today. Subsegmental atelectasis LEFT lower lobe. Moderate chronic emphysematous changes. Normal caliber thoracic aorta. Aortic calcification. Coronary calcification. RIGHT adrenal lesion deepika suring 4.2 x 3.9 cm likely due to adenoma. This is unchanged since the CT abdomen pelvis December 06, 2020. Postoperative changes LEFT breast. Hypertrophic changes thoracic spine. CT/CT lung screening [id number] IMPRESSION: LUNG-RADS: 2-Benign Appearance or Behavior FOLLOW UP: 12 Month: Continue annual screening with LDCT
== END 2021-05-03 13:02 | disposition home or self-care (01) ==
LOC: CT 13:02
PROVIDERS: PCP Internal Medicine; Visit Provider Internal Medicine Critical Care Medicine
DX: Z12.2 Encounter for screening for malignant neoplasm of respiratory organs (principal); Z87.891 Personal history of nicotine dependence
CPT/HCPCS: 71271

== ENCOUNTER 2021-05-03 14:49 | Outpatient (CLI) | payer MEDICARE, MEDICAID, SELFPAY | END 2021-05-03 14:50 | disposition home or self-care (01) | LOC: WOUND 14:50 | PROVIDERS: PCP Internal Medicine; Visit Provider Surgery | DX: E11.622 Type 2 diabetes mellitus with other skin ulcer (principal); L97.421 Non-pressure chronic ulcer of left heel and midfoot limited to breakdown of skin; Z87.891 Personal history of nicotine dependence; I96 Gangrene, not elsewhere classified | CPT/HCPCS: 11042 ==

== ENCOUNTER → 2021-05-10 13:39 | Outpatient (BNVA) | payer MEDICARE, MEDICAID, SELFPAY | PROVIDERS: PCP Internal Medicine; Visit Provider Surgery | DX: E11.622 Type 2 diabetes mellitus with other skin ulcer (principal); I87.2 Venous insufficiency (chronic) (peripheral); L97.321 Non-pressure chronic ulcer of left ankle limited to breakdown of skin | CPT/HCPCS: 11042 ==

== ENCOUNTER → 2021-05-17 08:44 | Outpatient (BNVA) | payer MEDICARE, MEDICAID, SELFPAY | PROVIDERS: PCP Internal Medicine; Visit Provider Internal Medicine Cardiovascular Disease | DX: I35.0 Nonrheumatic aortic (valve) stenosis (principal); I11.0 Hypertensive heart disease with heart failure; I50.32 Chronic diastolic (congestive) heart failure; I87.2 Venous insufficiency (chronic) (peripheral); L97.321 Non-pressure chronic ulcer of left ankle limited to breakdown of skin | CPT/HCPCS: 99212; 99214 ==

== ENCOUNTER → 2021-05-27 08:31 | Outpatient (BNVA) | payer MEDICARE, MEDICAID, SELFPAY | PROVIDERS: PCP Internal Medicine; Visit Provider Internal Medicine Critical Care Medicine | DX: J42 Unspecified chronic bronchitis (principal); J96.11 Chronic respiratory failure with hypoxia; G47.33 Obstructive sleep apnea (adult) (pediatric); I35.0 Nonrheumatic aortic (valve) stenosis; Z87.891 Personal history of nicotine dependence; I10 Essential (primary) hypertension; E11.8 Type 2 diabetes mellitus with unspecified complications; I50.89 Other heart failure; E78.5 Hyperlipidemia, unspecified | CPT/HCPCS: 99214 ==

== ENCOUNTER 2021-07-30 11:59 | Oncology outpatient (recurring) (ONCR) | payer MEDICARE, MEDICAID, SELFPAY ==
[2021-07-30 10:13] LABS: Basophils # 0.1 10^3/uL (0.0-0.1); Basophils % 0.8 %; Eosinophils # 0.2 10^3/uL (0.0-0.8); Eosinophils % 2.1 %; Hematocrit 36.3 % (37.0-47.0); Lymphocytes # 1.6 10^3/uL (0.8-4.8); Lymphocytes % 16.4 %; Mean Corpuscular HGB Conc 33.1 g/dL (30.0-36.0); Mean Corpuscular Hemoglobin 30.5 pg (28.0-34.0); Mean Corpuscular Volume 92.4 fl (81-99); Mean Platelet Volume 9.9 fL (7.4-10.4); Monocytes # 0.5 10^3/uL (0.2-0.9); Monocytes % 5.7 %; Neutrophils # 7.01 10^3/uL (1.8-7.7); Neutrophils % 74.5 %; Nucleated Red Blood Cells % 0 %; Platelet Count 289 10^3/cmm (130-400); Red Blood Count 3.93 10^6/uL (4.1-5.3); Red Cell Distribution Width 13.3 % (12.1-15.1); White Blood Count 9.4 10^3/uL (4.0-10.0)
== END 2021-08-15 23:59 | disposition home or self-care (01) ==
PROVIDERS: Internal Medicine Hematology & Oncology; PCP Internal Medicine; Referring Provider Surgery; Visit Provider Internal Medicine Medical Oncology
DX: C50.512 Malignant neoplasm of lower-outer quadrant of left female breast (principal); Z17.0 Estrogen receptor positive status [ER+]; Z79.811 Long term (current) use of aromatase inhibitors; I73.9 Peripheral vascular disease, unspecified; Z95.5 Presence of coronary angioplasty implant and graft; I87.2 Venous insufficiency (chronic) (peripheral); G47.33 Obstructive sleep apnea (adult) (pediatric); I48.20 Chronic atrial fibrillation, unspecified; Z79.891 Long term (current) use of opiate analgesic
CPT/HCPCS: 85025; 99214

== ENCOUNTER 2021-08-08 07:25 | Outpatient (CLI) | payer MEDICARE, MEDICAID, SELFPAY ==
--- NOTE | 2021-08-08 07:31 | MM_ITS ---
WS: [id number] VIEWS: MLO, CC, and ML views both breasts. 3D digital tomosynthesis is also included in this exam. Comparison made with prior exam of 07/31/2016, 09/08/2017, 09/09/2018, 09/12/2019, and 09/12/2020.. Findings: Stable appearing postoperative changes in the left breast. No new suspicious findings in either breas t. Scattered fibroglandular densities. MM/[place] [id number] Impression: BI-RADS: 2-Benign FOLLOW-UP: 1 Year Follow-up This mammogram was also analyzed by the Computer Aided Detection System R2 Imag e Compound Mixer.
== END 2021-08-08 07:26 | disposition home or self-care (01) ==
LOC: RAD 07:26
PROVIDERS: PCP Internal Medicine; Visit Provider Internal Medicine
DX: Z85.3 Personal history of malignant neoplasm of breast (principal)
CPT/HCPCS: 77062

== ENCOUNTER → 2021-08-09 08:15 | Outpatient (BNVA) | payer MEDICARE, MEDICAID, SELFPAY | PROVIDERS: PCP Internal Medicine; Visit Provider Nurse Practitioner Family | DX: E11.621 Type 2 diabetes mellitus with foot ulcer (principal); L97.322 Non-pressure chronic ulcer of left ankle with fat layer exposed; L97.822 Non-pressure chronic ulcer of other part of left lower leg with fat layer exposed; I96 Gangrene, not elsewhere classified | CPT/HCPCS: 11042; 11045; 29581; 99213 ==

== ENCOUNTER → 2021-08-12 10:00 | Outpatient (BNVA) | payer MEDICARE, MEDICAID, SELFPAY | PROVIDERS: PCP Internal Medicine; Visit Provider Thoracic Surgery (Cardiothoracic Vascular Surgery) | DX: E11.621 Type 2 diabetes mellitus with foot ulcer (principal); L97.322 Non-pressure chronic ulcer of left ankle with fat layer exposed; L97.822 Non-pressure chronic ulcer of other part of left lower leg with fat layer exposed; L89.892 Pressure ulcer of other site, stage 2; I96 Gangrene, not elsewhere classified | CPT/HCPCS: 11042; 97597; 97598; A6197 ==

== ENCOUNTER → 2021-08-16 08:54 | Outpatient (BNVA) | payer MEDICARE, MEDICAID, SELFPAY | PROVIDERS: PCP Internal Medicine; Visit Provider Surgery | DX: E11.621 Type 2 diabetes mellitus with foot ulcer (principal); L97.322 Non-pressure chronic ulcer of left ankle with fat layer exposed; I96 Gangrene, not elsewhere classified; L89.892 Pressure ulcer of other site, stage 2 | CPT/HCPCS: 11042; A6197 ==

== ENCOUNTER 2021-08-21 10:00 | Outpatient (CLI) | payer MEDICARE, MEDICAID, SELFPAY | END 2021-08-21 10:01 | disposition home or self-care (01) | LOC: SLEEP 08-22 09:03 | PROVIDERS: PCP Internal Medicine; Visit Provider Internal Medicine | DX: G47.33 Obstructive sleep apnea (adult) (pediatric) (principal) | CPT/HCPCS: 29581; 94762; A6197 ==

== ENCOUNTER → 2021-08-23 09:02 | Outpatient (BNVA) | payer MEDICARE, MEDICAID, SELFPAY | PROVIDERS: PCP Internal Medicine; Visit Provider Surgery | DX: Z09 Encounter for follow-up examination after completed treatment for conditions other than malignant neoplasm (principal) | CPT/HCPCS: 99212 ==

== ENCOUNTER 2021-09-16 14:17 | Emergency (ER) | payer MEDICARE, MEDICAID, SELFPAY ==
[2021-09-16] VITALS (7 sets, daily range): BP systolic 100–166; BP diastolic 49–80; PULSE 49–60; RESP 15–20; TEMP 36.8–37.1; O2SAT 90–95; BMI 48.1
--- NOTE | 2021-09-16 15:22 | XRR_ITS ---
PROCEDURE INFORMATION: Exam: XR Chest Exam date and time: 09/16/2021 3:46 PM Age: 65 years old Clinical indication: Other: Genralized weakness; Additional info: Generalized weakness TECHNIQUE: Imaging protocol: Radiologic exam of the chest. Views: 1 view. COMPARISON: CR XR chest 1V portable [id number] 12/06/2020 8:03 AM FINDINGS: Lungs: Bibasilar atelectasis versus minimal infiltrate. Pleural spaces: Unremarkable. No pleural effusion. No pneumothorax. Heart/Mediastinum: Cardiomegaly. Bones/joints: Unremarkable. XR/XR chest 1V portable [id number] IMPRESSION: 1. Cardiomegaly. 2. Bibasilar atelectasis versus minimal infiltrate.
--- NOTE | 2021-09-16 15:23 | XRR_ITS ---
PROCEDURE INFORMATION: Exam: XR Right Knee Exam date and time: 09/16/2021 4:03 PM Age: 65 years old Clinical indication: Pain and injury or trauma; Fall; Blunt trauma; Knee; Right; Additional info: Pain in right knee after fall TECHNIQUE: Imaging protocol: Radiologic exam of the Right knee. Views: 3 views. COMPARISON: CR Knee 3 views, RIGHT* [id number] 09/20/2017 9:00 PM FINDINGS: Bones/joints: Severe tricompartmental osteoarthritis of the knee. Small joint effusion. Soft tissues: Normal. Vasculature: Scattered vascular calcifications. XR/XR knee RT 3V* [id number] IMPRESSION: 1. Negative for fracture or dislocation. 2. Severe tricompartmental osteoarthritis of the knee. 3. Small joint effusion. 4. Scattered vascular calcifications.
--- NOTE | 2021-09-16 15:23 | USR_ITS ---
PROCEDURE INFORMATION: Exam: US Duplex Right Lower Extremity Veins, Limited Exam date and time: 09/16/2021 4:27 PM Age: 65 years old Clinical indication: Pain; Leg, lower; Right; Prior surgery; Surgery type: Venaseal; Additional info: Right leg pain, right calf tenderness TECHNIQUE: Imaging protocol: Real-time Duplex ultrasound of the Right Lower Extremity with 2-D shelby scale, color Doppler flow and spectral waveform analysis with image documentation. Limited exam was focused on the right lower extremity veins. COMPARISON: CTA AbdAorta Runoff Leg [id number] 07/28/2017 1:42 PM FINDINGS: Right deep veins: Unremarkable. The common femoral, femoral, proximal profunda femoral and popliteal veins are patent without thrombus. Normal Doppler waveforms. Normal compressibility and/or augmentation response. Right superficial veins: Unremarkable. Saphenofemoral junction is patent without thrombus. Soft tissues: Unremarkable. US/[place] [id number] IMPRESSION: No evidence of deep vein thrombosis.
--- NOTE | 2021-09-16 15:23 | CTR_ITS ---
PROCEDURE INFORMATION: Exam: CT Head Without Contrast Exam date and time: 09/16/2021 5:00 PM Age: 65 years old Clinical indication: Injury or trauma; Fall; Bleeding/hemorrhage; Additional info: Fall in shower and hit head. Denies loc TECHNIQUE: Imaging protocol: Computed tomography of the head without contrast. Radiation optimization: All CT scans at this facility use at least one of these dose optimization techniques: automated exposure control; mA and/or kV adjustment per patient size (includes targeted exams where dose is matched to clinical indication); or iterative reconstruction. COMPARISON: No relevant prior studies available. RADIATION DOSE METRICS: Total DLP (mGy-cm): 1188.18 FINDINGS: Brain: Mild diffuse white matter disease likely reflecting chronic microvascular ischemic changes. Cerebral ventricles: No ventriculomegaly. Paranasal sinuses: Paranasal sinus opacifications. Mastoid air cells: Visualized mastoid air cells are well aerated. Bones/joints: Unremarkable. No acute fracture. Soft tissues: Unremarkable. CT/CT head wo con* [id number] IMPRESSION: Negative for intracranial hemorrhage or mass effect.
--- NOTE | 2021-09-16 15:25 | XRR_ITS ---
PROCEDURE INFORMATION: Exam: XR Bilateral Hips Exam date and time: 09/16/2021 3:54 PM Age: 65 years old Clinical indication: Injury or trauma; Fall; Blunt trauma (contusions or hematomas); Bilateral; Hip; Additional info: Fall in shower TECHNIQUE: Imaging protocol: Radiologic exam of the bilateral hips. Views: 2 views of hips with pelvis when performed. COMPARISON: CT abdomen pelvis w con* [id number] 12/06/2020 9:11 AM FINDINGS: Bones/joints: Moderate osteoarthritis of the hips right greater than left. Soft tissues: Unremarkable. Vasculature: Scattered vascular calcifications. XR/XR hip BI 3-4V wo/w pel [id number] IMPRESSION: 1. Negative for fracture or dislocation, if concern for fracture remains consider further evaluation with a CT scan given patient's decreased bone mineral density. 2. Scattered vascular calcifications. 3. Moderate osteoarthritis of the hips right greater than left.
--- NOTE | 2021-09-16 15:26 | ED_ITS ---
Documented by User: MJ Torres 09/17/21 17:18 HPI - Weakness General: Chief complaint: Weakness Stated complaint: DIZZINES/ FALL Time Seen by Provider: 09/16/21 15:06 History of Present Illness: Patient is a 65-year-old female who comes to the ED via EMS for generalized weakness and fall. Past medical history of hypertension, A. fib, diastolic heart failure, anemia, GERD, diabetes, peripheral artery disease, COPD with chronic respiratory failure. fall occurred on just prior to arrival while patient was trying to get out of her shower. She states she was feeling very weak all throughout her body and when she went to climb to get out of her shower she fell backwards hitting her buttocks on the tub and her head hit the wall. Denies any loss of consciousness. She reports some pain in her right knee but denies any pain in hips. Her is hospitalized and put on a ventilator a little over 2 weeks ago and he is currently up in [place]. She has been staying up in [place] with her and sitting by a side most of the day and then sleeping in a hotel room. She has not been eating or drinking much for the past couple weeks. She reports having diarrhea for approximately 1 week that resolved a couple days ago. She is very stressed about her 's health. Today she just felt very weak all over especially in her lower legs. Patient hardly had energy to situp for the EMS when they came to her house. Denies any chest pain or shortness of breath. Denies any fever, nausea/vomiting or bladder symptoms. Associated symptoms: Denies chest pain, chills, dysuria, fever(s), headache(s), nausea or vomiting Review of Systems Const: Reports: fatigue; Denies: fever(s) or chills Eyes: Denies: change in vision or eye discomfort ENMT: Denies: throat pain, odynophagia, nasal discharge or nasal congestion Card: Denies: chest pain, palpitations, edema, swelling of feet/ankles, dyspnea on exertion or orthopnea Resp: Denies: dyspnea, productive cough or non-productive cough GI: Denies: abdominal pain, nausea, vomiting, diarrhea, constipation or hematochezia : Denies: flank pain, dysuria or hematuria Musc: Denies: neck pain, back pain or extremity swelling Skin/Breast: Denies: rash or new lesions Neuro: Reports: weakness in extremities (Weakness throughout upper and lower extremities bilaterally); Denies: headache(s) or numbness in extremities PFSH ED PFSH: Medical History Anemia Atrial fibrillation, chronic Chronic venous insufficiency Diabetes Diastolic heart failure History of breast cancer Hypertension Leg pain Lower extremity edema Peripheral arterial disease Screen for colon cancer Surgical History History of carpal tunnel release of both wrists History of colonoscopy with polypectomy (~08/2019) [facility] [place]. History of coronary angioplasty with insertion of stent History of coronary artery balloon dilation History of esophagogastroduodenoscopy (EGD) (~08/2019) [facility] History of lumpectomy Family History Father CAD (coronary artery disease) Cancer Diabetes Hyperlipidemia Hypertension Lung disease Denies family history of Clotting disorder Dementia Psychiatric illness Chronic kidney disease (CKD) Suicide Anesthesia complication Bleeding disorder Stroke Social History Smoking and tobacco status: former smoker Quit status (tobacco): has quit using tobacco Year quit tobacco: 2016 - 2PPD x 40 Years Alcohol intake: never Counseling given: No Counseling given: No Lives independently: Yes Household members: spouse Marital status: Current occupational status: retired History of recent travel: No Current gender identity: Female Physical Exam Const: COMMON NORMALS: patient oriented x3 and alert GENERAL APPEARANCE: cooperative and lethargic ORIENTATION/CONSCIOUSNESS: Yes lethargic HENMT: COMMON NORMALS: normocephalic HEAD & SCALP: normocephalic MOUTH: moist mucous membranes abnormal Details: parched THROAT: posterior oropharynx normal and uvula midline Eye: COMMON NORMALS: Equal, round and reactive pupils present, EOMs intact bilaterally and conjunctivae normal CONJUNCTIVA: Yes conjunctivae normal PUPIL: Yes Equal, round and reactive pupils present Neck/C-Spine: COMMON NORMALS: supple GENERAL: Yes normal visual inspection Resp: COMMON NORMALS: normal respiratory effort, No retractions, No use of accessory muscles and clear to auscultation bilaterally AUSCULTATION: clear to auscultation bilaterally Cardio: COMMON NORMALS: regular rate, regular rhythm, S1 normal heart sound present, S2 normal heart sound present, No gallops present (Cardio), No clicks present (Cardio), No murmurs present (Cardio) and Peripheral pulses 2+ throughout RATE: regular rate RHYTHM: regular rhythm HEART SOUNDS: S1 normal heart sound present and S2 normal heart sound present PERIPHERAL PULSES: Peripheral pulses 2+ throughout GI: COMMON NORMALS: Normal to inspection, nondistended, normoactive bowel sounds present, Soft to palpation, non-tender and no masses PALPATION: Yes Soft to palpation : COMMON NORMALS: Yes no CVA tenderness BLADDER/KIDNEY EXAM: Yes no CVA tenderness Back/Pelvis: COMMON NORMALS: no CVA tenderness Extremity: GENERAL: Yes calf tenderness (Right calf) Neuro: COMMON NORMALS: patient oriented x3 SENSORIUM/ORIENTATION: Yes alert and Yes lethargic GAIT: Yes Normal gait present Skin: GENERAL SKIN EXAM: dry skin Course Vital Signs: Vital signs: Vital Signs Temperature 98.7 F 09/16/21 18:00 Pulse Rate 56 L 09/16/21 20:45 Respiratory Rate 18 09/16/21 20:45 Blood Pressure 166/80 09/16/21 20:45 Pulse Oximetry 95 09/16/21 20:45 Oxygen Delivery Me thod Transtracheal Cat heter 09/16/21 20:42 MDM - Weakness Lab Data : 09/16/21 15:30 09/16/21 15:30 Radiology Impressions Chest X-Ray 09/16/21 15:22 IMPRESSION: 1. Cardiomegaly. 2. Bibasilar atelectasis versus minimal infiltrate. Head CT 09/16/21 15:23 IMPRESSION: Negative for intracranial hemorrhage or mass effect. Knee X-Ray 09/16/21 15:23 IMPRESSION: 1. Negative for fracture or dislocation. 2. Severe tricompartmental osteoarthritis of the knee. 3. Small joint effusion. 4. Scattered vascular calcifications. Venous Duplex 09/16/21 15:23 IMPRESSION: No evidence of deep vein thrombosis. Hip/Pelvis X-Ray 09/16/21 15:25 IMPRESSION: 1. Negative for fracture or dislocation, if concern for fracture remains consider further evaluation with a CT scan given patient's decreased bone mineral density. 2. Scattered vascular calcifications. 3. Moderate osteoarthritis of the hips right greater than left. Laboratory Results WBC 10.7 10^3/uL (4.0-10.0) H 09/16/21 15: RBC 4.11 10^6/uL (4.1-5.3) 09/16/21 15: Hgb 12.6 g/dL (11.5-15.3) 09/16/21 15:30 Hct 38.2 % (37.0-47.0) 09/16/21 15: MCV 92.9 fl (81-99) 09/16/21 15: MCH 30.7 pg (28.0-34.0) 09/16/21 15: MCHC 33.0 g/dL (30.0-36.0) 09/16/21: RDW 13.6 % (12.1-15.1) 09/16/21 15: Plt Count 260 10^3/cmm (130-400) 09/16/21 15: MPV 10.4 fL (7.4-10.4) 09/16/21 15:30 Neut % (Auto) 71.2 % 09/16/21 15:30 Lymph % (Auto) 20.2 % 09/16/21 15:30 Sawyer % (Auto) 6.1 % 09/16/21: Eos % (Auto) 0.7 % 09/16/21: Baso % (Auto) 0.5 % 09/16/21:30 Neut # (Auto) 7.65 10^3/uL (1.8-7.7) 09/16/21 15: Lymph # (Auto) 2.2 10^3/uL (0.8-4.8) 09/16/21 15:30 Sawyer # (Auto) 0.7 10^3/uL (0.2-0.9) 09/16/21 15:30 Eos # (Auto) 0.1 10^3/uL (0.0-0.8) 09/16/21 15:30 Baso # (Auto) 0.1 10^3/uL (0.0-0.1) 09/16/21 15:30 Nucleated RBC % (auto) 0 % 09/16/21: Nucleated RBCs # 0.0 /100WBC 09/16/21 15:30 Sodium 132 mmol/L (136-145) L 09/16/21 15:30 Potassium 5.2 mmol/L (3.5-5.1) H 09/16/21 15:30 Chloride 98 mmol/L (98-107) 09/16/21 15:30 Carbon Dioxide 22 mmol/L (22-29) 09/16/21 15:30 Anion Gap 17.2 (5-19) 09/16/21 15:30 BUN 32 mg/dL (8-23) H 09/16/21 15:30 Creatinine 2.5 mg/dL (0.5-0.9) H 09/16/21 15:30 GFR Calculation 19.3 mL/min (90-130) L 09/16/21 15:30 Glucose 94 mg/dL (65-115) 09/16/21 15:30 Calculated Osmolality 281 mOsm/kg (285-295) L 09/16/21 15:30 Calcium 9.1 mg/dL (8.5-10.5) 09/16/21 15:30 Troponin T Baseline 31 ng/L (0-10) H 09/16/21 15:30 Troponin T 120 Minute 35.77 ng/L (0-10) H 09/16/21 17:27 Delta Troponin T 4.77 ABS# (0-10) 09/16/21 17:27 NT-Pro-B Natriuret Pep 1505 pg/mL (0-125) H 09/16/21 16:06 Urine Color Yellow (Yellow) 09/16/21 19:40 Urine Appearance Cloudy (CLEAR) 09/16/21 19:40 Urine pH 5 (5-7) 09/16/21 19:40 Ur Specific [place] 1.020 (1.005-1.030) 09/16/21 19:40 Urine Protein Trace (Negative) 09/16/21 19:40 Urine Glucose (UA) Trace (Normal) H 09/16/21 19:40 Urine Ketones Negative (Negative) 09/16/21 19:40 Urine Blood 2+ (Negative) H 09/16/21 19:40 Urine Nitrate Negative (Negative) 09/16/21 19:40 Urine Bilirubin Neg (Negative) 09/16/21 19:40 Urine Urobilinogen Norm mg/dL (Negative) 09/16/21 19:40 Ur Leukocyte Esterase 2+ (Negative) H 09/16/21 19:40 Urine RBC 25-40 /hpf (0-2) H 09/16/21 19:40 Urine WBC >100 /hpf (0-5) H 09/16/21 19:40 Ur Squamous Epith Cells Too numerous to cnt /hpf (0-5) H 09/16/21 19:40 Ur Transition Epith Cell 25-40 /hpf 09/16/21 19:40 Amorphous Sediment 2+ /hpf 09/16/21 19:40 Urine Bacteria 2+ /hpf (NONE) H 09/16/21 19:40 Discharge Plan Discharge Patient Disposition: Home Clinical Impression: Fall in shower, Weakness, UTI (urinary tract infection) due to Enterococcus Chronic renal insufficiency Qualifiers: Chronic kidney disease stage: unspecified stage Qualified Code(s): N18.9 - Chronic kidney disease, unspecified Condition: Stable Prescriptions: New Macrobid 100 mg capsule 100 mg PO BID 5 Days Qty: 10 0RF Rx Instructions: must administer with a meal/food No Action Tresiba FlexTouch U-100 100 unit/mL (3 mL) insulin pen 42 unit SUBCUT BID albuterol sulfate 90 mcg/actuation HFA aerosol inhaler 2 puff inhalation Q6H PRN (Reason: Shortness Of Breath) insulin lispro [Humalog KwikPen Insulin] 100 unit/mL insulin pen 35 unit SUBCUT TID Stiolto Respimat 2.5-2.5 mcg/actuation mist 2 puff inhalation DAILY@07 Qty: 4 5RF clonidine HCl 0.1 mg tablet 0.1 mg PO Q8H amiodarone 200 mg tablet 200 mg PO DAILY@0700 simvastatin 10 mg tablet 10 mg PO DAILY@2200 metolazone 5 mg tablet 5 mg PO EVERY OTHER DAY Rx Instructions: take at 0700 allopurinol 100 mg tablet 100 mg PO DAILY@0700 isosorbide mononitrate 60 mg tablet extended release 24 hr 90 mg PO DAILY@0700 amlodipine 10 mg tablet 10 mg PO BEDTIME gabapentin 300 mg capsule 300 mg PO TID@07,, polyethylene glycol 3350 17 gram/dose powder 17 g PO DAILY PRN (Reason: Constipation) potassium chloride 20 mEq tablet extended release 40 meq PO DAILY@0700 aspirin 325 mg Tablet 325 mg PO DAILY@0700 Hold Instructions: Resume on 07/24/20. spironolactone 25 mg tablet 50 mg PO DAILY cholecalciferol (vitamin D3) 1,250 mcg (50,000 unit) capsule 50,000 unit PO Q7D Rx Instructions: ON THU pantoprazole 40 mg tablet,delayed release (DR/EC) 40 mg PO QAM amitriptyline 25 mg tablet 25 mg PO BEDTIME@2200 furosemide 80 mg tablet 80 mg PO BID escitalopram oxalate 20 mg Tablet 20 mg PO DAILY exemestane 25 mg tablet 25 mg PO DAILY Discharge Orders: Discharge ED (Routine); Ordered 09/16/21 Ordered By: Jim Christianson Referrals: Jeanine Solares MD [Primary Care Provider] - Patient Instructions: Fall Prevention for Older Adults (ED), Head Injury (ED) Activity Restrictions/Additional Instructions: Home and rest. Patient should be monitored for the next 24 hours and should not be alone. Continue with routine plan. Follow-up with primary care in 2 to 3 days for recheck. Return to ER for new concerns or worsening symptoms such as fever greater than 100.4, unresponsiveness, inability to hold fluids down. Sign Out Sign Out Data: Patient Sign Out occurred on 09/16/21 at 17:02. Patient's care was discussed, and care was transferred from to Jim Christianson. Coding Level of Care Code ED Circular Gang Saw Operator for Chg Fwd Exam Comprehensive Documented by User: BRIGID Hinds 09/16/21 21:05 HPI - Weakness General: Chief complaint: Weakness Stated complaint: DIZZINES/ FALL Time Seen by Provider: 09/16/21 15:06 [facility] ED PFSH: Medical History Anemia Atrial fibrillation, chronic Chronic venous insufficiency Diabetes Diastolic heart failure History of breast cancer Hypertension Leg pain Lower extremity edema Peripheral arterial disease Screen for colon cancer Surgical History History of carpal tunnel release of both wrists History of colonoscopy with polypectomy (~08/2019) [facility] [place]. History of coronary angioplasty with insertion of stent History of coronary artery balloon dilation History of esophagogastroduodenoscopy (EGD) (~08/2019) [facility] [place]. History of lumpectomy Family History Father CAD (coronary artery disease) Cancer Diabetes Hyperlipidemia Hypertension Lung disease Denies family history of Clotting disorder Dementia Psychiatric illness Chronic kidney disease (CKD) Suicide Anesthesia complication Bleeding disorder Stroke Social History Smoking and tobacco status: former smoker Quit status (tobacco): has quit using tobacco Year quit tobacco: 2015 - 2PPD x 40 Years Alcohol intake: never Counseling given: No Counseling given: No Lives independently: Yes Household members: spouse Marital status: Current occupational status: retired History of recent travel: No Current gender identity: Female Course ED course: 1813. Patient continues to fall asleep even when we are talking with her. She does arouse to gentle stimulation. Patient was unable to get up to use the bathroom or ambulate. I spoke with patient who wakes up immediately to verbal stimuli. She states she is hungry and would like to have something to eat. No acute distress is noted. Reviewed labs and x-rays with family. Patient does have hard time getting around at home she has a wheelchair and walker. 1904, patient is more alert and talkative. She has eaten a meal and it seems to have woke her up. We are still awaiting a urine sample to check for infection. Vital Signs: Vital signs: Vital Signs Temperature 98.7 F 09/16/21 18:00 Pulse Rate 56 L 09/16/21 20:45 Respiratory Rate 18 09/16/21 20:45 Blood Pressure 166/80 09/16/21 20:45 Pulse Oximetry 95 09/16/21 20:45 Oxygen Delivery Me thod Transtracheal Cat heter 09/16/21 20:42 MDM - Weakness Medical Decision Making 65-year-old female comes in today after having a fall at home while getting out of the shower. On exam patient was very sleepy. Patient did awake to answer questions. Patient reported some mild headache. Patient appeared in no acute d istress. Vital signs were normal except for mild bradycardia. Differential diagnosis includes fracture, intracranial bleeding, ACS, UTI or other infection. Chest x-ray noted some bibasilar atelectasis. Head CT showed no intracranial hemorrhage or mass. Knee x-ray noted no fracture but some significant arthritis. Venous duplex was negative for DVT. X-rays of the hip and pelvis indicated no fracture. Laboratory values noted a white blood cell count of 10,000, sodium was 132, potassium 5.2, creatinine was 2.5 and BNP was 1505. Review of the record noted that these labs were very similar to previous labs although it does appear that her creatinine has increased over the time of 1 year. Anion gap was unremarkable. Troponin first and second were unchanged. Reviewed exam with patient with recommendations for follow-up in further treatment. Patient and family both reported understanding. Urinalysis showed a significant amount of white blood cells and red blood cells also a large amount of squamous cells. Suspect a urinary tract infection causing patient's increased weakness we will give 1 g Rocephin with Macrobid to follow-up. Lab Data : 09/16/21 15:30 09/16/21 15:30 Radiology Impressions Chest X-Ray 09/16/21 15:22 IMPRESSION: 1. Cardiomegaly. 2. Bibasilar atelectasis versus minimal infiltrate. Head CT 09/16/21 15:23 IMPRESSION: Negative for intracranial hemorrhage or mass effect. Knee X-Ray 09/16/21 15:23 IMPRESSION: 1. Negative for fracture or dislocation. 2. Severe tricompartmental osteoarthritis of the knee. 3. Small joint effusion. 4. Scattered vascular calcifications. Venous Duplex 09/16/21 15:23 IMPRESSION: No evidence of deep vein thrombosis. Hip/Pelvis X-Ray 09/16/21 15:25 IMPRESSION: 1. Negative for fracture or dislocation, if concern for fracture remains consider further evaluation with a CT scan given patient's decreased bone mineral density. 2. Scattered vascular calcifications. 3. Moderate osteoarthritis of the hips right greater than left. Laboratory Results WBC 10.7 10^3/uL (4.0-10.0) H 09/16/21 15:30 RBC 4.11 10^6/uL (4.1-5.3) 09/16/21 15:30 Hgb 12.6 g/dL (11.5-15.3) 09/16/21 15:30 Hct 38.2 % (37.0-47.0) 09/16/21 15: MCV 92.9 fl (81-99) 09/16/21 15:30 MCH 30.7 pg (28.0-34.0) 09/16/21 15: MCHC 33.0 g/dL (30.0-36.0) 09/16/21: RDW 13.6 % (12.1-15.1) 09/16/21 15: Plt Count 260 10^3/cmm (130-400) 09/16/21 15: MPV 10.4 fL (7.4-10.4) 09/16/21 15: Neut % (Auto) 71.2 % 09/16/21 15: Lymph % (Auto) 20.2 % 09/16/21 15: Sawyer % (Auto) 6.1 % 09/16/21 15: Eos % (Auto) 0.7 % 09/16/21 15:30 Baso % (Auto) 0.5 % 09/16/21:30 Neut # (Auto) 7.65 10^3/uL (1.8-7.7) 09/16/21: Lymph # (Auto) 2.2 10^3/uL (0.8-4.8) 09/16/21 15:30 Sawyer # (Auto) 0.7 10^3/uL (0.2-0.9) 09/16/21: Eos # (Auto) 0.1 10^3/uL (0.0-0.8) 09/16/21:30 Baso # (Auto) 0.1 10^3/uL (0.0-0.1) 09/16/21: Nucleated RBC % (auto) 0 % 09/16/21: Nucleated RBCs # 0.0 /100WBC 09/16/21 15:30 Sodium 132 mmol/L (136-145) L 09/16/21 15: Potassium 5.2 mmol/L (3.5-5.1) H 09/16/21 15: Chloride 98 mmol/L (98-107) 09/16/21 15:30 Carbon Dioxide 22 mmol/L (22-29) 09/16/21 15:30 Anion Gap 17.2 (5-19) 09/16/21 15:30 BUN 32 mg/dL (8-23) H 09/16/21 15:30 Creatinine 2.5 mg/dL (0.5-0.9) H 09/16/21 15:30 GFR Calculation 19.3 mL/min (90-130) L 09/16/21 15:30 Glucose 94 mg/dL (65-115) 09/16/21 15:30 Calculated Osmolality 281 mOsm/kg (285-295) L 09/16/21 15:30 Calcium 9.1 mg/dL (8.5-10.5) 09/16/21 15:30 Troponin T Baseline 31 ng/L (0-10) H 09/16/21 15:30 Troponin T 120 Minute 35.77 ng/L (0-10) H 09/16/21 17:27 Delta Troponin T 4.77 ABS# (0-10) 09/16/21 17:27 NT-Pro-B Natriuret Pep 1505 pg/mL (0-125) H 09/16/21 16:06 Urine Color Yellow (Yellow) 09/16/21 19:40 Urine Appearance Cloudy (CLEAR) 09/16/21 19:40 Urine pH 5 (5-7) 09/16/21 19:40 Ur Specific [place] 1.020 (1.005-1.030) 09/16/21 19:40 Urine Protein Trace (Negative) 09/16/21 19:40 Urine Glucose (UA) Trace (Normal) H 09/16/21 19:40 Urine Ketones Negative (Negative) 09/16/21 19:40 Urine Blood 2+ (Negative) H 09/16/21 19:40 Urine Nitrate Negative (Negative) 09/16/21 19:40 Urine Bilirubin Neg (Negative) 09/16/21 19:40 Urine Urobilinogen Norm mg/dL (Negative) 09/16/21 19:40 Ur Leukocyte Esterase 2+ (Negative) H 09/16/21 19:40 Urine RBC 25-40 /hpf (0-2) H 09/16/21 19:40 Urine WBC >100 /hpf (0-5) H 09/16/21 19:40 Ur Squamous Epith Cells Too numerous to cnt /hpf (0-5) H 09/16/21 19:40 Ur Transition Epith Cell 25-40 /hpf 09/16/21 19:40 Amorphous Sediment 2+ /hpf 09/16/21 19:40 Urine Bacteria 2+ /hpf (NONE) H 09/16/21 19:40 Discharge Plan Discharge Patient Disposition: Home Clinical Impression: Fall in shower, Weakness, UTI (urinary tract infection) due to Enterococcus Chronic renal insufficiency Qualifiers: Chronic kidney disease stage: unspecified stage Qualified Code(s): N18.9 - Chronic kidney disease, unspecified Condition: Stable Prescriptions: New Macrobid 100 mg capsule 100 mg PO BID 5 Days Qty: 10 0RF Rx Instructions: must administer with a meal/food No Action Tresiba FlexTouch U-100 100 unit/mL (3 mL) insulin pen 42 unit SUBCUT BID albuterol sulfate 90 mcg/actuation HFA aerosol inhaler 2 puff inhalation Q6H PRN (Reason: Shortness Of Breath) insulin lispro [Humalog KwikPen Insulin] 100 unit/mL insulin pen 35 unit SUBCUT TID Stiolto Respimat 2.5-2.5 mcg/actuation mist 2 puff inhalation DAILY@07 Qty: 4 5RF clonidine HCl 0.1 mg tablet 0.1 mg PO Q8H amiodarone 200 mg tablet 200 mg PO DAILY@0700 simvastatin 10 mg tablet 10 mg PO DAILY@2200 metolazone 5 mg tablet 5 mg PO EVERY OTHER DAY Rx Instructions: take at 0700 allopurinol 100 mg tablet 100 mg PO DAILY@0700 isosorbide mononitrate 60 mg tablet extended release 24 hr 90 mg PO DAILY@0700 amlodipine 10 mg tablet 10 mg PO BEDTIME gabapentin 300 mg capsule 300 mg PO TID@, polyethylene glycol 3350 17 gram/dose powder 17 g PO DAILY PRN (Reason: Constipation) potassium chloride 20 mEq tablet extended release 40 meq PO DAILY@0700 aspirin 325 mg Tablet 325 mg PO DAILY@0700 Hold Instructions: Resume on 09/09/19. spironolactone 25 mg tablet 50 mg PO DAILY cholecalciferol (vitamin D3) 1,250 mcg (50,000 unit) capsule 50,000 unit PO Q7D Rx Instructions: ON THU pantoprazole 40 mg tablet,delayed release (DR/EC) 40 mg PO QAM amitriptyline 25 mg tablet 25 mg PO BEDTIME@2200 furosemide 80 mg tablet 80 mg PO BID escitalopram oxalate 20 mg Tablet 20 mg PO DAILY exemestane 25 mg tablet 25 mg PO DAILY Discharge Orders: Discharge ED (Routine); Ordered 09/16/21 Ordered By: Jim Christianson Referrals: Jeanine Solares MD [Primary Care Provider] - Patient Instructions: Fall Prevention for Older Adults (ED), Head Injury (ED) Activity Restrictions/Additional Instructions: Home and rest. Patient should be monitored for the next 24 hours and should not be alone. Continue with routine plan. Follow-up with primary care in 2 to 3 days for recheck. Return to ER for new concerns or worsening symptoms such as fever greater than 100.4, unresponsiveness, inability to hold fluids down. Sign Out Sign Out Data: Patient Sign Out occurred on 09/16/21 at 17:02. Patient's care was discussed, and care was transferred from to Jim Christianson. Coding Level of Care Code ED Circular Gang Saw Operator for Tang Fwd Exam Comprehensive
[2021-09-16 15:43] LABS: Basophils # 0.1 10^3/uL (0.0-0.1); Basophils % 0.5 %; Eosinophils # 0.1 10^3/uL (0.0-0.8); Eosinophils % 0.7 %; Hematocrit 38.2 % (37.0-47.0); Hemoglobin 12.6 g/dL (11.5-15.3); Lymphocytes # 2.2 10^3/uL (0.8-4.8); Lymphocytes % 20.2 %; Mean Corpuscular Hemoglobin 30.7 pg (28.0-34.0); Mean Corpuscular Volume 92.9 fl (81-99); Mean Platelet Volume 10.4 fL (7.4-10.4); Monocytes # 0.7 10^3/uL (0.2-0.9); Monocytes % 6.1 %; Neutrophils # 7.65 10^3/uL (1.8-7.7); Neutrophils % 71.2 %; Nucleated Red Blood Cells % 0 %; Platelet Count 260 10^3/cmm (130-400); Red Blood Count 4.11 10^6/uL (4.1-5.3); Red Cell Distribution Width 13.6 % (12.1-15.1); White Blood Count 10.7 10^3/uL (4.0-10.0)
[2021-09-16 16:16] LABS: Troponin(5th) Baseline 31 ng/L (0-10)
[2021-09-16 16:18] LABS: Anion Gap 17.2 (5-19); Blood Urea Nitrogen 32 mg/dL (8-23); Calcium 9.1 mg/dL (8.5-10.5); Carbon Dioxide 22 mmol/L (22-29); Chloride 98 mmol/L (98-107); Glomerular Filtration Rate 19.3 mL/min (90-130); Glucose 94 mg/dL (65-115); Osmolality Calculated 281 mOsm/kg (285-295); Potassium 5.2 mmol/L (3.5-5.1); Sodium 132 mmol/L (136-145)
--- NOTE | 2021-09-16 16:20 | ECG_ITS ---
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 Measurements Intervals [place] Rate: 47 P: 53 KS: 169 QRS: -41 QRSD: 161 T: 36 QT: 518 QTc: 458 Interpretive Statements SINUS BRADYCARDIA LEFT AXIS DEVIATION [QRS AXIS < -30] RIGHT BUNDLE BRANCH BLOCK [120+ ms QRS DURATION, UPRIGHT V1, 40+ ms S IN I/aVL/V4/V5/V6] Compared to ECG 12/06/2020 08:34:41 Left-axis deviation now present Sinus rhythm no longer present Indeterminate axis no longer present Left anterior fascicular block no longer present Myocardial infarct finding no longer present Electronically Signed On 09-17-2021 7:10:11 CDT by Aníbal Moore M.D. [id number]
[2021-09-16 16:48] LABS: NT Pro B Type Natriuretic Pept 1505 pg/mL (0-125)
[2021-09-16] MEDS: sodium chloride 0.9% 500 ML 999 ML IV (17:12)
--- NOTE | 2021-09-16 17:12 | ECG_ITS ---
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 Measurements Intervals [place] Rate: 52 P: 48 NE: 198 QRS: -38 QRSD: 164 T: 17 QT: 510 QTc: 477 Interpretive Statements SINUS BRADYCARDIA LEFT AXIS DEVIATION [QRS AXIS < -30] Diffuse nonspecific T wave changes RIGHT BUNDLE BRANCH BLOCK [120+ ms QRS DURATION, UPRIGHT V1, 40+ ms S IN I/aVL/V4/V5/V6] Compared to ECG 09/16/2021 16:20:22 No significant changes Electronically Signed On 09-17-2021 21:23:42 CDT by Valentin Partida M.D. [id number]
--- NOTE | 2021-09-16 17:22 | PC.NURSE ---
Morphine not given. Patient is very drowsy and falls asleep between questions. HR in the 40s and BP 107/49. Patient rates pain 6 on a scale 0-10. Provider notified.
[2021-09-16 18:22] LABS: Troponin 5 2HR 35.77 ng/L (0-10)
[2021-09-16 18:24] LABS: Troponin 5 2HR Delta 4.77 ABS# (0-10)
[2021-09-16 20:05] LABS: Add Urine Culture? No; Add Urine Microscopic? YES; Amorphous Sediment Urine 2+ /hpf; Bacteria Urine 2+ /hpf; Bilirubin Urine Neg (Negative); Blood Urine 2+ (Negative); Glucose Urine UA Trace (Normal); Ketones Urine Negative (Negative); Leukocyte Esterase Urine 2+ (Negative); Nitrate Urine Negative (Negative); Protein Urine Trace (Negative); RBC Urine 25-40 /hpf (0-2); Squamous Epithelial Cell Urine TOO NUMEROUS TO CNT /hpf (0-5); Transitional Epi Cells Urine 25-40 /hpf; Urine Appearance Cloudy (CLEAR); Urine Color Yellow (Yellow); Urobilinogen Urine Norm (Negative); WBC Urine >100 /hpf (0-5); pH Urine 5 (5-7)
[2021-09-16] MEDS: cefTRIAXone 1,000 MG in sodium chloride 0.9% (plus) 50 ML 100 MG IV (20:15)
== END 2021-09-16 20:47 | disposition home or self-care (01) ==
PROVIDERS: Emergency Medicine; Physician Assistant; Emergency Provider Nurse Practitioner Family; PCP Internal Medicine
DX: R53.1 Weakness (principal); N39.0 Urinary tract infection, site not specified; B95.2 Enterococcus as the cause of diseases classified elsewhere; N18.9 Chronic kidney disease, unspecified; Z79.82 Long term (current) use of aspirin; Z79.4 Long term (current) use of insulin; Z87.891 Personal history of nicotine dependence; E11.9 Type 2 diabetes mellitus without complications; I11.0 Hypertensive heart disease with heart failure; I50.9 Heart failure, unspecified; Z85.3 Personal history of malignant neoplasm of breast; W18.2XXA Fall in (into) shower or empty bathtub, initial encounter
CPT/HCPCS: 51701; 70450; 71045; 73522; 73562; 80048; 81001; 83880; 84484; 85025; 93005; 93971; 96365; 99285; J0696; J7040

== ENCOUNTER 2021-11-20 07:59 | Oncology outpatient (recurring) (ONCR) | payer MEDICARE, MEDICAID, SELFPAY ==
[2021-11-20 08:15] LABS: Basophils # 0.1 10^3/uL (0.0-0.1); Basophils % 0.7 %; Eosinophils # 0.4 10^3/uL (0.0-0.8); Eosinophils % 3.9 %; Hematocrit 36.5 % (37.0-47.0); Hemoglobin 11.7 g/dL (11.5-15.3); Lymphocytes # 1.7 10^3/uL (0.8-4.8); Lymphocytes % 17.4 %; Mean Corpuscular HGB Conc 32.1 g/dL (30.0-36.0); Mean Corpuscular Hemoglobin 30.7 pg (28.0-34.0); Mean Corpuscular Volume 95.8 fl (81-99); Mean Platelet Volume 9.6 fL (7.4-10.4); Monocytes # 0.7 10^3/uL (0.2-0.9); Monocytes % 6.8 %; Neutrophils # 6.95 10^3/uL (1.8-7.7); Neutrophils % 70.5 %; Nucleated Red Blood Cells % 0 %; Platelet Count 286 10^3/cmm (130-400); Red Blood Count 3.81 10^6/uL (4.1-5.3); Red Cell Distribution Width 13.9 % (12.1-15.1); White Blood Count 9.9 10^3/uL (4.0-10.0)
[2021-11-20 08:32] LABS: Alanine Aminotransferase 13 U/L (0-33); Albumin Level 3.6 g/dL (3.5-5.2); Alkaline Phosphatase 97 U/L (35-105); Anion Gap 15.7 (5-19); Aspartate Amino Transferase 12 U/L (0-32); Blood Urea Nitrogen 39 mg/dL (8-23); Calcium 9.5 mg/dL (8.5-10.5); Carbon Dioxide 26 mmol/L (22-29); Chloride 101 mmol/L (98-107); Globulin 3.4 g/dL (1.3-4.6); Glucose 171 mg/dL (65-115); Osmolality Calculated 299 mOsm/kg (285-295); Potassium 4.7 mmol/L (3.5-5.1); Sodium 138 mmol/L (136-145); Total Bilirubin 0.3 mg/dL (0.15-1.2)
== END 2021-12-16 23:59 | disposition home or self-care (01) ==
PROVIDERS: Internal Medicine Hematology & Oncology; PCP Internal Medicine; Referring Provider Surgery; Visit Provider Internal Medicine Medical Oncology
DX: C50.512 Malignant neoplasm of lower-outer quadrant of left female breast (principal); Z17.0 Estrogen receptor positive status [ER+]; Z79.811 Long term (current) use of aromatase inhibitors; I73.9 Peripheral vascular disease, unspecified; Z95.5 Presence of coronary angioplasty implant and graft; I87.2 Venous insufficiency (chronic) (peripheral); G47.33 Obstructive sleep apnea (adult) (pediatric); I48.20 Chronic atrial fibrillation, unspecified; Z79.891 Long term (current) use of opiate analgesic
CPT/HCPCS: 36415; 80053; 85025; 99214

== ENCOUNTER → 2021-12-09 10:31 | Outpatient (BNVA) | payer MEDICARE, MEDICAID, SELFPAY | PROVIDERS: PCP Internal Medicine; Visit Provider Internal Medicine Cardiovascular Disease | DX: I48.20 Chronic atrial fibrillation, unspecified (principal); I11.0 Hypertensive heart disease with heart failure; I50.32 Chronic diastolic (congestive) heart failure; I25.10 Atherosclerotic heart disease of native coronary artery without angina pectoris; Z95.5 Presence of coronary angioplasty implant and graft; Z98.890 Other specified postprocedural states; Z87.891 Personal history of nicotine dependence | CPT/HCPCS: 93005; 99214 ==

== ENCOUNTER → 2022-01-21 09:28 | Outpatient (BNVA) | payer MEDICARE, MEDICAID, SELFPAY | PROVIDERS: PCP Internal Medicine; Visit Provider Nurse Practitioner Family | DX: I96 Gangrene, not elsewhere classified (principal); E11.622 Type 2 diabetes mellitus with other skin ulcer; L97.312 Non-pressure chronic ulcer of right ankle with fat layer exposed | CPT/HCPCS: 11042; 87070; 87077; 87176; 87186; 87205; 99213; A6213 ==

== ENCOUNTER → 2022-01-28 10:17 | Outpatient (BNVA) | payer MEDICARE, MEDICAID, SELFPAY | PROVIDERS: PCP Internal Medicine; Visit Provider Thoracic Surgery (Cardiothoracic Vascular Surgery) | DX: I96 Gangrene, not elsewhere classified (principal); E11.622 Type 2 diabetes mellitus with other skin ulcer; L97.321 Non-pressure chronic ulcer of left ankle limited to breakdown of skin; L97.822 Non-pressure chronic ulcer of other part of left lower leg with fat layer exposed | CPT/HCPCS: 11042; 97597; A6252 ==

== ENCOUNTER 2022-01-29 10:46 | Oncology outpatient (recurring) (ONCR) | payer MEDICARE, MEDICAID, SELFPAY ==
[2022-01-29 11:15] LABS: Basophils # 0.1 10^3/uL (0.0-0.1); Basophils % 0.8 %; Eosinophils # 0.4 10^3/uL (0.0-0.8); Eosinophils % 3.5 %; Hemoglobin 11.4 g/dL (11.5-15.3); Lymphocytes # 1.8 10^3/uL (0.8-4.8); Lymphocytes % 16.4 %; Mean Corpuscular HGB Conc 31.7 g/dL (30.0-36.0); Mean Corpuscular Volume 94.7 fl (81-99); Mean Platelet Volume 9.7 fL (7.4-10.4); Monocytes # 0.8 10^3/uL (0.2-0.9); Monocytes % 7.1 %; Neutrophils # 7.75 10^3/uL (1.8-7.7); Nucleated Red Blood Cells % 0 %; Platelet Count 282 10^3/cmm (130-400); Red Cell Distribution Width 14.6 % (12.1-15.1); White Blood Count 10.9 10^3/uL (4.0-10.0)
[2022-01-29 11:36] LABS: Alanine Aminotransferase 16 U/L (0-33); Albumin Level 3.9 g/dL (3.5-5.2); Alkaline Phosphatase 90 U/L (35-105); Anion Gap 16.1 (5-19); Aspartate Amino Transferase 15 U/L (0-32); Blood Urea Nitrogen 40 mg/dL (8-23); Calcium 9.1 mg/dL (8.5-10.5); Carbon Dioxide 26 mmol/L (22-29); Chloride 101 mmol/L (98-107); Globulin 3.4 g/dL (1.3-4.6); Glomerular Filtration Rate 26.4 mL/min (90-130); Glucose 135 mg/dL (65-115); Osmolality Calculated 298 mOsm/kg (285-295); Potassium 5.1 mmol/L (3.5-5.1); Sodium 138 mmol/L (136-145); Total Bilirubin 0.3 mg/dL (0.15-1.2); Total Protein 7.3 g/dL (6.6-8.7)
== END 2022-02-15 23:59 | disposition home or self-care (01) ==
PROVIDERS: Internal Medicine Hematology & Oncology; PCP Internal Medicine; Referring Provider Surgery; Visit Provider Internal Medicine Medical Oncology
DX: Z08 Encounter for follow-up examination after completed treatment for malignant neoplasm (principal); Z85.3 Personal history of malignant neoplasm of breast; D72.829 Elevated white blood cell count, unspecified; S91.002A Unspecified open wound, left ankle, initial encounter; L08.9 Local infection of the skin and subcutaneous tissue, unspecified; Z79.2 Long term (current) use of antibiotics; D64.9 Anemia, unspecified; N28.89 Other specified disorders of kidney and ureter; Z92.21 Personal history of antineoplastic chemotherapy; Z87.891 Personal history of nicotine dependence
CPT/HCPCS: 36415; 80053; 85025; 99214

== ENCOUNTER → 2022-01-31 11:23 | Outpatient (BNVA) | payer MEDICARE, MEDICAID, SELFPAY | PROVIDERS: PCP Internal Medicine; Visit Provider Surgery | DX: I96 Gangrene, not elsewhere classified (principal); E11.622 Type 2 diabetes mellitus with other skin ulcer; L97.322 Non-pressure chronic ulcer of left ankle with fat layer exposed | CPT/HCPCS: 11042; 29581; 97597; A6252 ==

== ENCOUNTER → 2022-02-04 10:44 | Outpatient (BNVA) | payer MEDICARE, MEDICAID, SELFPAY | PROVIDERS: PCP Internal Medicine; Visit Provider Thoracic Surgery (Cardiothoracic Vascular Surgery) | DX: I96 Gangrene, not elsewhere classified (principal); E11.622 Type 2 diabetes mellitus with other skin ulcer; L97.822 Non-pressure chronic ulcer of other part of left lower leg with fat layer exposed; L97.321 Non-pressure chronic ulcer of left ankle limited to breakdown of skin | CPT/HCPCS: 11042; 97597 ==

== ENCOUNTER → 2022-02-11 14:07 | Outpatient (BNVA) | payer MEDICARE, MEDICAID, SELFPAY | PROVIDERS: PCP Internal Medicine; Visit Provider Surgery | DX: I96 Gangrene, not elsewhere classified (principal); E11.622 Type 2 diabetes mellitus with other skin ulcer; L97.322 Non-pressure chronic ulcer of left ankle with fat layer exposed; L97.822 Non-pressure chronic ulcer of other part of left lower leg with fat layer exposed | CPT/HCPCS: 11042; A6252 ==

== ENCOUNTER → 2022-02-18 14:24 | Outpatient (BNVA) | payer MEDICARE, MEDICAID, SELFPAY | PROVIDERS: PCP Internal Medicine; Visit Provider Thoracic Surgery (Cardiothoracic Vascular Surgery) | DX: I96 Gangrene, not elsewhere classified (principal); E11.622 Type 2 diabetes mellitus with other skin ulcer; L97.321 Non-pressure chronic ulcer of left ankle limited to breakdown of skin; L97.822 Non-pressure chronic ulcer of other part of left lower leg with fat layer exposed; L97.812 Non-pressure chronic ulcer of other part of right lower leg with fat layer exposed | CPT/HCPCS: 11042; 97597; A6212 ==

== ENCOUNTER 2022-02-19 09:48 | Outpatient (CLI) | payer MEDICARE, MEDICAID, SELFPAY ==
--- NOTE | 2022-02-19 10:00 | USCV_ITS ---
Miguel Ángel Seema Age: 66 Gender: F : 1955 Exam Date: 02/19/2022 10:02 Ordering Phys: Jim Leon MD (Andy) ([email or web address] [place]) Technologist: CLEO Exam Location: [facility] [place] Indication: EDEMA HISTORY: Lower extremity swelling. Lower extremity edema. PROCEDURES: Venous duplex imaging was performed in only the right lower extremity. The following venous structures were evaluated: common femoral vein, profunda vein, proximal portion of the greater saphenous vein, superficial femoral vein, and the popliteal vein. In addition, the posterior tibial and peroneal trunk were evaluated. Serial compression, augmentation maneuvers, and spectral Doppler flow evaluation were performed. FINDINGS: No evidence of DVT seen in any vessel visualized at this time. CONCLUSIONS No evidence of right lower extremity DVT. Khai Hagen MD (Electronically Signed) Final Date: 19 February 2022 12:53 S
== END 2022-02-19 09:49 | disposition home or self-care (01) ==
LOC: RAD 09:49
PROVIDERS: PCP Internal Medicine; Visit Provider Thoracic Surgery (Cardiothoracic Vascular Surgery)
DX: M79.604 Pain in right leg (principal); R60.0 Localized edema
CPT/HCPCS: 93971

== ENCOUNTER → 2022-02-24 11:49 | Outpatient (BNVA) | payer MEDICARE, MEDICAID, SELFPAY | PROVIDERS: PCP Internal Medicine; Visit Provider Thoracic Surgery (Cardiothoracic Vascular Surgery) | DX: I96 Gangrene, not elsewhere classified (principal); E11.622 Type 2 diabetes mellitus with other skin ulcer; L97.321 Non-pressure chronic ulcer of left ankle limited to breakdown of skin; L97.811 Non-pressure chronic ulcer of other part of right lower leg limited to breakdown of skin | CPT/HCPCS: 11042; 97597; 97598; A6210 ==

== ENCOUNTER → 2022-03-03 11:52 | Outpatient (BNVA) | payer MEDICARE, MEDICAID, SELFPAY | PROVIDERS: PCP Internal Medicine; Visit Provider Thoracic Surgery (Cardiothoracic Vascular Surgery) | DX: I96 Gangrene, not elsewhere classified (principal); E11.622 Type 2 diabetes mellitus with other skin ulcer; L97.321 Non-pressure chronic ulcer of left ankle limited to breakdown of skin; L97.811 Non-pressure chronic ulcer of other part of right lower leg limited to breakdown of skin | CPT/HCPCS: 97597; 97598; A6252 ==

== ENCOUNTER → 2022-03-10 13:40 | Outpatient (BNVA) | payer MEDICARE, MEDICAID, SELFPAY | PROVIDERS: PCP Internal Medicine; Visit Provider Thoracic Surgery (Cardiothoracic Vascular Surgery) | DX: I96 Gangrene, not elsewhere classified (principal); E11.622 Type 2 diabetes mellitus with other skin ulcer; L97.321 Non-pressure chronic ulcer of left ankle limited to breakdown of skin; L97.811 Non-pressure chronic ulcer of other part of right lower leg limited to breakdown of skin | CPT/HCPCS: 11042; 97597; 97598; A6252 ==

== ENCOUNTER → 2022-03-24 15:09 | Outpatient (BNVA) | payer MEDICARE, MEDICAID, SELFPAY | PROVIDERS: PCP Internal Medicine; Visit Provider Thoracic Surgery (Cardiothoracic Vascular Surgery) | DX: I96 Gangrene, not elsewhere classified (principal); E11.622 Type 2 diabetes mellitus with other skin ulcer; L97.312 Non-pressure chronic ulcer of right ankle with fat layer exposed; L97.811 Non-pressure chronic ulcer of other part of right lower leg limited to breakdown of skin | CPT/HCPCS: 11042; 97597; 97598; A6212 ==

== ENCOUNTER → 2022-03-31 13:58 | Outpatient (BNVA) | payer MEDICARE, MEDICAID, SELFPAY | PROVIDERS: PCP Internal Medicine; Visit Provider Thoracic Surgery (Cardiothoracic Vascular Surgery) | DX: I96 Gangrene, not elsewhere classified (principal); E11.622 Type 2 diabetes mellitus with other skin ulcer; L97.321 Non-pressure chronic ulcer of left ankle limited to breakdown of skin | CPT/HCPCS: 11042; 97597; 97598; A6252 ==

== ENCOUNTER → 2022-04-02 12:59 | Outpatient (BNVA) | payer MEDICARE, MEDICAID, SELFPAY | PROVIDERS: PCP Internal Medicine; Visit Provider Thoracic Surgery (Cardiothoracic Vascular Surgery) | DX: E11.622 Type 2 diabetes mellitus with other skin ulcer (principal); L97.321 Non-pressure chronic ulcer of left ankle limited to breakdown of skin; L97.811 Non-pressure chronic ulcer of other part of right lower leg limited to breakdown of skin | CPT/HCPCS: 29581; A6252; A6253 ==

== ENCOUNTER → 2022-04-07 14:40 | Outpatient (BNVA) | payer MEDICARE, MEDICAID, SELFPAY | PROVIDERS: PCP Internal Medicine; Visit Provider Thoracic Surgery (Cardiothoracic Vascular Surgery) | DX: I96 Gangrene, not elsewhere classified (principal); E11.621 Type 2 diabetes mellitus with foot ulcer; L97.321 Non-pressure chronic ulcer of left ankle limited to breakdown of skin; L97.811 Non-pressure chronic ulcer of other part of right lower leg limited to breakdown of skin | CPT/HCPCS: 97597 ==

== ENCOUNTER → 2022-04-14 13:49 | Outpatient (BNVA) | payer MEDICARE, MEDICAID, SELFPAY | PROVIDERS: PCP Internal Medicine; Visit Provider Thoracic Surgery (Cardiothoracic Vascular Surgery) | DX: I96 Gangrene, not elsewhere classified (principal); E11.622 Type 2 diabetes mellitus with other skin ulcer; L97.321 Non-pressure chronic ulcer of left ankle limited to breakdown of skin; L97.811 Non-pressure chronic ulcer of other part of right lower leg limited to breakdown of skin | CPT/HCPCS: 11042; 97597; A6251; A6252 ==

== ENCOUNTER → 2022-04-21 13:41 | Outpatient (BNVA) | payer MEDICARE, MEDICAID, SELFPAY | PROVIDERS: PCP Internal Medicine; Visit Provider Thoracic Surgery (Cardiothoracic Vascular Surgery) | DX: I96 Gangrene, not elsewhere classified (principal); E11.621 Type 2 diabetes mellitus with foot ulcer; L97.321 Non-pressure chronic ulcer of left ankle limited to breakdown of skin; E11.622 Type 2 diabetes mellitus with other skin ulcer; L97.811 Non-pressure chronic ulcer of other part of right lower leg limited to breakdown of skin | CPT/HCPCS: 11042; 97597; A6251; A6252 ==

== ENCOUNTER 2022-04-28 15:01 | Outpatient (CLI) | payer MEDICARE, MEDICAID, SELFPAY ==
--- NOTE | 2022-04-28 15:15 | XR_ITS ---
WS: [id number] XR hand RT min 3V* [id number] REASON FOR EXAM: PAIN IN R HAND/SWELLING FINDINGS: No fracture or focal bone lesion. No periosteal reaction. Mild narrowing of the joint space with mild subchondral sclerosis and small osteophytosis in the DIP joints of the fingers and thumb. Similar arthropathy in the carpal metacarpal and the metacarpal phalangeal joint of the thumb. No significant soft tissue abnormality. XR/XR hand RT min 3V* [id number] IMPRESSION: Arthropathy of the right hand consistent with osteoarthritis.
== END 2022-04-28 15:02 | disposition home or self-care (01) ==
PROVIDERS: PCP Internal Medicine; Visit Provider Nurse Practitioner Family
DX: R22.31 Localized swelling, mass and lump, right upper limb (principal); M12.841 Other specific arthropathies, not elsewhere classified, right hand; I96 Gangrene, not elsewhere classified; E11.621 Type 2 diabetes mellitus with foot ulcer; L97.321 Non-pressure chronic ulcer of left ankle limited to breakdown of skin; E11.622 Type 2 diabetes mellitus with other skin ulcer; L97.811 Non-pressure chronic ulcer of other part of right lower leg limited to breakdown of skin
CPT/HCPCS: 11042; 73130; 97597; A6251

== ENCOUNTER → 2022-05-05 11:36 | Outpatient (BNVA) | payer MEDICARE, MEDICAID, SELFPAY | PROVIDERS: PCP Internal Medicine; Visit Provider Thoracic Surgery (Cardiothoracic Vascular Surgery) | DX: E11.622 Type 2 diabetes mellitus with other skin ulcer (principal); L97.321 Non-pressure chronic ulcer of left ankle limited to breakdown of skin; Z09 Encounter for follow-up examination after completed treatment for conditions other than malignant neoplasm | CPT/HCPCS: 97597 ==

== ENCOUNTER → 2022-05-14 10:19 | Outpatient (BNVA) | payer MEDICARE, MEDICAID, SELFPAY | PROVIDERS: PCP Internal Medicine; Visit Provider Thoracic Surgery (Cardiothoracic Vascular Surgery) | DX: E11.621 Type 2 diabetes mellitus with foot ulcer (principal); L97.321 Non-pressure chronic ulcer of left ankle limited to breakdown of skin; E11.622 Type 2 diabetes mellitus with other skin ulcer; L97.812 Non-pressure chronic ulcer of other part of right lower leg with fat layer exposed | CPT/HCPCS: 97597; A6021 ==

== ENCOUNTER → 2022-05-19 09:10 | Outpatient (BNVA) | payer MEDICARE, MEDICAID, SELFPAY | PROVIDERS: PCP Internal Medicine; Visit Provider Thoracic Surgery (Cardiothoracic Vascular Surgery) | DX: E11.621 Type 2 diabetes mellitus with foot ulcer (principal); L97.321 Non-pressure chronic ulcer of left ankle limited to breakdown of skin; E11.622 Type 2 diabetes mellitus with other skin ulcer; L97.812 Non-pressure chronic ulcer of other part of right lower leg with fat layer exposed | CPT/HCPCS: 97597; A6021; A6212 ==

== ENCOUNTER → 2022-05-26 08:49 | Outpatient (BNVA) | payer MEDICARE, MEDICAID, SELFPAY | PROVIDERS: PCP Internal Medicine; Visit Provider Thoracic Surgery (Cardiothoracic Vascular Surgery) | DX: E11.622 Type 2 diabetes mellitus with other skin ulcer (principal); L97.322 Non-pressure chronic ulcer of left ankle with fat layer exposed; L97.812 Non-pressure chronic ulcer of other part of right lower leg with fat layer exposed | CPT/HCPCS: 11042; A6021; A6251 ==

== ENCOUNTER → 2022-06-02 08:54 | Outpatient (BNVA) | payer MEDICARE, MEDICAID, SELFPAY | PROVIDERS: PCP Internal Medicine; Visit Provider Thoracic Surgery (Cardiothoracic Vascular Surgery) | DX: E11.622 Type 2 diabetes mellitus with other skin ulcer (principal); L97.812 Non-pressure chronic ulcer of other part of right lower leg with fat layer exposed; E11.621 Type 2 diabetes mellitus with foot ulcer; L97.321 Non-pressure chronic ulcer of left ankle limited to breakdown of skin | CPT/HCPCS: 11042; A6212 ×2 ==

== ENCOUNTER → 2022-06-10 09:22 | Outpatient (BNVA) | payer MEDICARE, MEDICAID, SELFPAY | PROVIDERS: PCP Internal Medicine; Visit Provider Nurse Practitioner Family | DX: E11.622 Type 2 diabetes mellitus with other skin ulcer (principal); L97.812 Non-pressure chronic ulcer of other part of right lower leg with fat layer exposed; E11.621 Type 2 diabetes mellitus with foot ulcer; L97.311 Non-pressure chronic ulcer of right ankle limited to breakdown of skin | CPT/HCPCS: 11042; A6251 ==

== ENCOUNTER → 2022-06-12 09:49 | Outpatient (BNVA) | payer MEDICARE, MEDICAID, SELFPAY | PROVIDERS: PCP Internal Medicine; Visit Provider Nurse Practitioner Family | DX: E11.622 Type 2 diabetes mellitus with other skin ulcer (principal); L97.812 Non-pressure chronic ulcer of other part of right lower leg with fat layer exposed; E11.621 Type 2 diabetes mellitus with foot ulcer; L97.311 Non-pressure chronic ulcer of right ankle limited to breakdown of skin | CPT/HCPCS: 29581; A6251 ==

== ENCOUNTER → 2022-06-19 08:24 | Outpatient (BNVA) | payer MEDICARE, MEDICAID, SELFPAY | PROVIDERS: PCP Internal Medicine; Visit Provider Nurse Practitioner Family | DX: I96 Gangrene, not elsewhere classified (principal); E11.621 Type 2 diabetes mellitus with foot ulcer; L97.321 Non-pressure chronic ulcer of left ankle limited to breakdown of skin | CPT/HCPCS: 97597; A6252 ==

== ENCOUNTER → 2022-06-24 13:00 | Outpatient (BNVA) | payer MEDICARE, MEDICAID, SELFPAY | PROVIDERS: PCP Internal Medicine; Visit Provider Nurse Practitioner Family | DX: I96 Gangrene, not elsewhere classified (principal); E11.621 Type 2 diabetes mellitus with foot ulcer; L97.321 Non-pressure chronic ulcer of left ankle limited to breakdown of skin | CPT/HCPCS: 97597; A6252 ==

== ENCOUNTER 2022-08-02 13:51 | Emergency (ER) | payer MEDICARE, MEDICAID, SELFPAY ==
[2022-08-02 14:05] VITALS: PULSE 80; RESP 14; TEMP 36.8; O2SAT 93; BMI 44.2
--- NOTE | 2022-08-02 14:09 | W.ED.EXTPRO ---
HPI - Extremity Problem General: Chief complaint: Extremity Injury, Lower Stated complaint: right knee pain Time Seen by Provider: 08/02/22 14:09 History of Present Illness: Ms. Del Rosario is a 66-year-old lady presented to the emergency department for evaluation of leg pain. She notes onset of symptoms 3 weeks ago which occurred while bending her knee with her leg somewhat beneath her. Since that time has had progressively worsening. She denies infectious symptoms. Pain is generalized however worse in the medial anterior. Occasional giving out sensation. Denies distal sensory or motor changes. No other specific changes in health, exacerbating, or alleviating factors identified. Onset (ago): week(s) Pain Consistency: constant Radiation: none Exacerbating factors: weight bearing and walking Associated symptoms: Reports no associated symptoms Review of Systems General: Reports: 10 or more systems reviewed and unremarkable except in HPI and below PFSH ED PFSH: Medical History Anemia Atrial fibrillation, chronic PT has easy bruising and bleeding tendency Chronic venous insufficiency Diabetes Diastolic heart failure History of breast cancer Hypertension Leg pain Lower extremity edema Peripheral arterial disease Screen for colon cancer Surgical History History of carpal tunnel release of both wrists History of colonoscopy with polypectomy (~08/2019) dr. zacarias [facility] [place]. History of coronary angioplasty with insertion of stent History of coronary artery balloon dilation History of esophagogastroduodenoscopy (EGD) (~08/2019) dr. zacarias [facility] [place]. History of lumpectomy Family History Father CAD (coronary artery disease), Onset Age: 50 Cancer Diabetes Hyperlipidemia Hypertension Lung disease Denies family history of Clotting disorder Dementia Psychiatric illness Chronic kidney disease (CKD) Suicide Anesthesia complication Bleeding disorder Stroke Social History Smoking and tobacco status: former smoker Quit status (tobacco): has quit using tobacco Year quit tobacco: 2016 - 2PPD x 40 Years Alcohol intake: never Counseling given: No Substance/Drug Use: never Counseling given: No Lives independently: Yes Household members: spouse Marital status: Current occupational status: retired Do you think of yourself as: Straight/Heterosexual Current gender identity: Female Physical Exam Const: COMMON NORMALS: alert GENERAL APPEARANCE: cooperative and well developed HENMT: COMMON NORMALS: normocephalic and atraumatic HEAD & SCALP: normocephalic and atraumatic Eye: COMMON NORMALS: conjunctivae normal CONJUNCTIVA: Yes conjunctivae normal SCLERA: sclerae normal Neck/C-Spine: COMMON NORMALS: supple GENERAL: Yes trachea midline Resp: COMMON NORMALS: normal respiratory effort EFFORT & INSPECTION: Yes able to speak in complete sentences Cardio: COMMON NORMALS: regular rate and regular rhythm RATE: regular rate RHYTHM: regular rhythm GI: COMMON NORMALS: Soft to palpation PALPATION: Yes Soft to palpation and No Tenderness to palpation present (GI) Extremity: NARRATIVE EXTREMITY EXAM: No evidence of effusion. There is tenderness which is generalized though probably worse in the anterior joint line and worse with posterior drawer. No evidence of laxity or instability. Distal CMS intact. GENERAL: Yes normal exam except as noted and No edema Neuro: COMMON NORMALS: moves all extremities SENSORIUM/ORIENTATION: Yes alert and No Orientation impaired Psych: COMMON NORMALS: mental status grossly normal and Normal thought process present THOUGHT PROCESS: Normal thought process present Course Vital Signs: Vital signs: Vital Signs Temperature 98.2 F 08/02/22 14:05 Pulse Rate 80 08/02/22 14:05 Respiratory Rate 14 08/02/22 14:05 Pulse Oximetry 93 08/02/22 14:05 Oxygen Delivery Me thod Room Air 08/02/22 14:05 MDM - Extremity (Nontraumatic) Medical Decision Making 66-year-old lady presenting with knee pain. Exam as above. No indication for labs. X-ray demonstrates moderate tricompartment degenerative changes. Pain improved with oxycodone and patient is appropriate for referral for orthopedics. The results of ED evaluation were discussed with the patient including prescriptions and/or symptomatic cares (if applicable) including appropriate and responsible use, followup plan, and return precautions. The patient verbalized understanding and felt safe for discharge. Medical Records I reviewed the patient's medical records. Lab Data I reviewed the patient's lab results. Radiology Impressions Knee X-Ray 08/02/22 14:22 IMPRESSION: No acute findings. Moderate tricompartmental DJD of the knee most significant at the medial and patellofemoral compartments. Discharge Plan Discharge Patient Disposition: Home Clinical Impression: Acute knee pain Condition: Stable Prescriptions: New oxycodone 5 mg tablet 5 mg PO Q4H PRN (Reason: pain) Qty: 20 0RF No Action Tresiba FlexTouch U-100 100 unit/mL (3 mL) insulin pen 42 unit SUBCUT BID albuterol sulfate 90 mcg/actuation HFA aerosol inhaler 2 puff inhalation Q6H PRN (Reason: Shortness Of Breath) sertraline 100 mg tablet 100 mg PO DAILY amiodarone 200 mg tablet 100 mg PO DAILY@0700 lisinopril 10 mg tablet 10 mg PO DAILY Qty: 90 3RF insulin lispro [Humalog KwikPen Insulin] 100 unit/mL insulin pen 35 unit SUBCUT TID sulfamethoxazole-trimethoprim [Bactrim DS] 800-160 mg tablet 1 tab PO BID Qty: 20 0RF Stiolto Respimat 2.5-2.5 mcg/actuation mist 2 puff inhalation DAILY@07 Qty: 4 5RF clonidine HCl 0.1 mg tablet 0.1 mg PO Q8H simvastatin 10 mg tablet 10 mg PO DAILY@2200 metolazone 5 mg tablet 5 mg PO EVERY OTHER DAY Rx Instructions: take at 0700 allopurinol 100 mg tablet 100 mg PO DAILY@0700 isosorbide mononitrate 60 mg tablet extended release 24 hr 90 mg PO DAILY@0700 amlodipine 10 mg tablet 10 mg PO BEDTIME gabapentin 300 mg capsule 300 mg PO TID@07,, polyethylene glycol 3350 17 gram/dose powder 17 g PO DAILY PRN (Reason: Constipation) potassium chloride 20 mEq tablet extended release 40 meq PO DAILY@0700 aspirin 325 mg Tablet 325 mg PO DAILY@0700 Hold Instructions: Resume on 09/09/19. spironolactone 25 mg tablet 50 mg PO DAILY cholecalciferol (vitamin D3) 1,250 mcg (50,000 unit) capsule 50,000 unit PO Q7D Rx Instructions: ON THU pantoprazole 40 mg tablet,delayed release (DR/EC) 40 mg PO QAM amitriptyline 25 mg tablet 25 mg PO BEDTIME@2200 furosemide 80 mg tablet 80 mg PO BID escitalopram oxalate 20 mg Tablet 20 mg PO DAILY exemestane 25 mg tablet 25 mg PO DAILY Discharge Orders: Discharge ED (Routine); Ordered 08/02/22 Ordered By: Tera Reis Referrals: Jeanine Solares MD [Primary Care Provider] - Discharge Diet: Usual diet Discharge Activity: Increase activity as tolerated Patient Instructions: Knee Pain (ED), Opioid Safety Activity Restrictions/Additional Instructions: Thank you for visiting the emergency department. You were seen and evaluated for knee pain. The exact cause of your knee pain is unclear however I believe that outpatient management is appropriate. I will prescribe oxycodone. Do not take this at the same time as tramadol due to risk of opiate overdose/toxicity. You may use [id number] medications such as acetaminophen and ibuprofen for pain however please do not exceed the daily recommended dosage as listed on the packaging and please keep in mind that many namebrand medications contain the same active ingredients. Please avoid these medications if previously instructed to do so by another physician due to other underlying medical condition. I will message case management for follow-up with orthopedics. Return for fevers, swollen hot knee area, new weakness/numbness/tingling, or anything else that you are concerned about and feel needs emergency department evaluation. Coding Level of Care Code ED Building Insulation Supervisor for Tang Ambrosio
--- NOTE | 2022-08-02 14:22 | XRR_ITS ---
PROCEDURE INFORMATION: Exam: XR Right Knee Exam date and time: 08/02/2022 2:39 PM Age: 66 years old Clinical indication: Pain; Knee; Right; Additional info: Knee pain, starting with bending/climbing up TECHNIQUE: Imaging protocol: Radiologic exam of the right knee. Views: 3 views. COMPARISON: CR XR knee RT 3V* [id number] 09/16/2021 4:03 PM FINDINGS: Bones/joints: Osseous structures are intact. Negative for fracture. Moderate tricompartmental DJD of the knee most significant at the medial patellofemoral compartments with joint space narrowing and bulky marginal osteophyte formation. Soft tissues: Extensive vascular wall calcifications along the posterior knee. XR/XR knee RT 3V* [id number] IMPRESSION: No acute findings. Moderate tricompartmental DJD of the knee most significant at the medial and patellofemoral compartments.
[2022-08-02] MEDS: oxyCODONE 5 mg IR Tab/Cap PO (15:39)
--- NOTE | 2022-08-03 05:04 | DCPLANNER ---
Addendum entered by Pili Hernandez 08/19/22 11:56: Patient had a follow up appointment scheduled with ortho - patient did attend appointment Addendum entered by Pili Hernandez 08/08/22 14:19: Patient has a follow up appointment scheduled for Thursday, August 18, 2022 at 7:[address] Snyder at ortho. Original Note: molding manager had message to schedule a follow up appointment for patient with ortho. molding manager sent patients information to the front office staff at ortho. Patients information will be printed and reviewed. Clinic will call patient with appointment information.
== END 2022-08-02 16:03 | disposition home or self-care (01) ==
PROVIDERS: Emergency Provider Emergency Medicine; PCP Internal Medicine
DX: M25.561 Pain in right knee (principal)
CPT/HCPCS: 73562; 99283

== ENCOUNTER 2022-08-12 08:37 | Emergency (ER) | payer MEDICARE, MEDICAID, SELFPAY ==
[2022-08-12 08:45] VITALS: BP 142/78; PULSE 77; TEMP 37.1; O2SAT 96; BMI 44.2
[2022-08-12 08:58] VITALS: BP 142/78
--- NOTE | 2022-08-12 09:00 | USCV_ITS ---
Seema Del Rosario Age: 66 Gender: F : 1955 Exam Date: 08/12/2022 09:14 Ordering Phys: Lazaro Snyder Technologist: Sebastián Bowling Exam Location: [facility]_ Indication: rt leg swelling and pain PROCEDURES: Venous duplex imaging was performed in only the right lower extremity. The following venous structures were evaluated: common femoral vein, profunda vein, proximal portion of the greater saphenous vein, superficial femoral vein, and the popliteal vein. In addition, the posterior tibial and peroneal trunk were evaluated. FINDINGS: Normal 2-D Doppler and augmentation and compressibility throughout the lower extremity venous structures. Additional imaging through the proximal calf veins also reveals no thrombus. Limited evaluation of the greater saphenous vein is patent with no thrombus. CONCLUSIONS No DVT right lower extremity. Dr. Geeta Garrett DO (Electronically Signed) Final Date: 12 August 2022 10:20 S
--- NOTE | 2022-08-12 09:01 | ED_ITS ---
HPI - Extremity Problem General: Chief complaint: Extremity Problem,Nontraumatic Stated complaint: Right knee pain Time Seen by Provider: 08/12/22 08:38 History of Present Illness: Patient is a 66-year-old female who comes to the ED with right leg pain. Patient was seen here in the ED for same complaint back on August 02, 2022. She was complaining of having right knee pain for close to a month. Denies any known injury or trauma. X-ray of right knee performed in the ED back on August 02 showed moderate tricompartmental osteoarthritis but no acute fractures. Patient has an appointment set up with orthopedic doctor on August 18. She is still having a lot of pain and right knee. She rates her pain currently a 10 out of 10. She is also complaining of pain up into her right thigh. Denies any chest pain, shortness of breath or hemoptysis. Denies any history of past DVTs. Associated symptoms: Deny chest pain, fever(s) or rash Review of Systems Const: Denies: fever(s), chills or fatigue Eyes: Denies: change in vision or eye discomfort ENMT: Denies: throat pain, odynophagia, nasal discharge or nasal congestion Card: Denies: chest pain, palpitations, edema, swelling of feet/ankles, dyspnea on exertion or orthopnea Resp: Denies: dyspnea, productive cough or non-productive cough GI: Denies: abdominal pain, nausea, vomiting, diarrhea, constipation or hematochezia : Denies: flank pain, dysuria or hematuria Musc: Reports: extremity pain (Right knee and right thigh pain); Denies: neck pain, back pain or extremity swelling Skin/Breast: Denies: rash or new lesions Neuro: Denies: headache(s), numbness in extremities or weakness in extremities PFS ED PFSH: Medical History Anemia Atrial fibrillation, chronic PT has easy bruising and bleeding tendency Chronic venous insufficiency Diabetes Diastolic heart failure History of breast cancer Hypertension Leg pain Lower extremity edema Peripheral arterial disease Screen for colon cancer Surgical History History of carpal tunnel release of both wrists [facility] History of coronary angioplasty with insertion of stent History of coronary artery balloon dilation History of esophagogastroduodenoscopy (EGD) (~08/2019) dr. zacarias [facility] [place]. History of lumpectomy Family History Father CAD (coronary artery disease), Onset Age: 50 Cancer Diabetes Hyperlipidemia Hypertension Lung disease Denies family history of Clotting disorder Dementia Psychiatric illness Chronic kidney disease (CKD) Suicide Anesthesia complication Bleeding disorder Stroke Social History Smoking and tobacco status: former smoker Quit status (tobacco): has quit using tobacco Year quit tobacco: 2016 - 2PPD x 40 Years Alcohol intake: never Counseling given: No Substance/Drug Use: never Counseling given: No Lives independently: Yes Household members: spouse Marital status: Current occupational status: retired Do you think of yourself as: Straight/Heterosexual Current gender identity: Female Physical Exam Const: COMMON NORMALS: no acute distress, patient oriented x3 and alert HENMT: COMMON NORMALS: normocephalic HEAD & SCALP: normocephalic MOUTH: Normal oral and palatal mucosa present THROAT: posterior oropharynx normal and uvula midline Neck/C-Spine: COMMON NORMALS: supple GENERAL: Yes normal visual inspection Resp: COMMON NORMALS: normal respiratory effort, No retractions, No use of accessory muscles and clear to auscultation bilaterally AUSCULTATION: clear to auscultation bilaterally Cardio: COMMON NORMALS: regular rate, regular rhythm, S1 normal heart sound present, S2 normal heart sound present, No gallops present (Cardio), No clicks present (Cardio), No murmurs present (Cardio) and Peripheral pulses 2+ throughout RATE: regular rate RHYTHM: regular rhythm HEART SOUNDS: S1 normal heart sound present and S2 normal heart sound present PERIPHERAL PULSES: Peripheral pulses 2+ throughout GI: COMMON NORMALS: Normal to inspection, nondistended, normoactive bowel sounds present, Soft to palpation, non-tender and no masses PALPATION: Yes Soft to palpation : COMMON NORMALS: Yes no CVA tenderness BLADDER/KIDNEY EXAM: Yes no CVA tenderness Back/Pelvis: COMMON NORMALS: no CVA tenderness Extremity: COMMON NORMALS: full ROM GENERAL: Yes calf tenderness (Right calf tenderness) and Yes edema (Trace to 1+ pitting edema right lower extremity) Neuro: COMMON NORMALS: patient oriented x3 SENSORIUM/ORIENTATION: Yes alert GAIT: Yes Normal gait present Skin: GENERAL SKIN EXAM: dry skin Course Vital Signs: Vital signs: Vital Signs Temperature 98.7 F 08/12/22 08:45 Pulse Rate 77 08/12/22 08:45 Respiratory Rate 17 08/12/22 09:10 Blood Pressure 142/78 08/12/22 08:58 Pulse Oximetry 96 08/12/22 09:10 Oxygen Delivery Me thod Room Air 08/12/22 08:45 MDM - Extremity (Nontraumatic) Medical Decision Making Patient is a 66-year-old female who comes to the ED with right leg pain. Patient was seen here in the ED for same complaint back on August 02, 2022. She was complaining of having right knee pain for close to a month. Denies any known injury or trauma. X-ray of right knee performed in the ED back on August 02 showed moderate tricompartmental osteoarthritis but no acute fractures. Patient has an appointment set up with orthopedic doctor on August 18. She is still having a lot of pain and right knee. She rates her pain currently a 10 out of 10. She is also complaining of pain up into her right thigh. Denies any chest pain, shortness of breath or hemoptysis. Denies any history of past DVTs. Vitals are stable. Patient appears nontoxic in no acute distress. Patient has some trace to 1+ pitting edema to right lower leg with right calf tenderness. Rest of exam is benign. Given her exam findings I ordered ultrasound of her right leg to rule out a DVT. Ultrasound venous duplex showed no blood clot or DVT in right leg. Patient was diagnosed with right knee pain and discharged home with prescription for couple hydrocodone to help with pain. She has an appointment scheduled with her PCP in the next couple days and also is scheduled to see Ortho for follow-up on right knee pain on August 18. Return to ED precautions given. Patient understood and agreed with plan. Discharge Plan Discharge Patient Disposition: Home Clinical Impression: Pain in right knee Condition: Stable Prescriptions: No Action Tresiba FlexTouch U-100 100 unit/mL (3 mL) insulin pen 42 unit SUBCUT BID albuterol sulfate 90 mcg/actuation HFA aerosol inhaler 2 puff inhalation Q6H PRN (Reason: Shortness Of Breath) sertraline 100 mg tablet 100 mg PO DAILY amiodarone 200 mg tablet 100 mg PO DAILY@0700 lisinopril 10 mg tablet 10 mg PO DAILY Qty: 90 3RF insulin lispro [Humalog KwikPen Insulin] 100 unit/mL insulin pen 35 unit SUBCUT TID sulfamethoxazole-trimethoprim [Bactrim DS] 800-160 mg tablet 1 tab PO BID Qty: 20 0RF Stiolto Respimat 2.5-2.5 mcg/actuation mist 2 puff inhalation DAILY@07 Qty: 4 5RF clonidine HCl 0.1 mg tablet 0.1 mg PO Q8H simvastatin 10 mg tablet 10 mg PO DAILY@2200 metolazone 5 mg tablet 5 mg PO EVERY OTHER DAY Rx Instructions: take at 0700 allopurinol 100 mg tablet 100 mg PO DAILY@0700 isosorbide mononitrate 60 mg tablet extended release 24 hr 90 mg PO DAILY@0700 amlodipine 10 mg tablet 10 mg PO BEDTIME gabapentin 300 mg capsule 300 mg PO TID@,, polyethylene glycol 3350 17 gram/dose powder 17 g PO DAILY PRN (Reason: Constipation) potassium chloride 20 mEq tablet extended release 40 meq PO DAILY@0700 aspirin 325 mg Tablet 325 mg PO DAILY@0700 Hold Instructions: Resume on 09/09/19. spironolactone 25 mg tablet 50 mg PO DAILY cholecalciferol (vitamin D3) 1,250 mcg (50,000 unit) capsule 50,000 unit PO Q7D Rx Instructions: ON THU pantoprazole 40 mg tablet,delayed release (DR/EC) 40 mg PO QAM amitriptyline 25 mg tablet 25 mg PO BEDTIME@2200 furosemide 80 mg tablet 80 mg PO BID escitalopram oxalate 20 mg Tablet 20 mg PO DAILY exemestane 25 mg tablet 25 mg PO DAILY oxycodone 5 mg tablet 5 mg PO Q4H PRN (Reason: pain) Qty: 20 0RF Discharge Orders: Discharge ED (Routine); Ordered 08/12/22 Ordered By: Lazaro Snyder Referrals: Jeanine Solares MD [Primary Care Provider] - Discharge Diet: Regular Discharge Activity: Increase activity as tolerated Patient Instructions: Knee Pain (ED) Activity Restrictions/Additional Instructions: Follow-up with medical provider as directed. Take medications as prescribed. Return to the ER or your medical provider if condition worsens. Please read and understand discharge instructions. Thank you for choosing [facility] for your healthcare needs today. Please realize this is an emergency room and that we are providing you with a medical screening exam and this may not be complete and all inclusive of all the testing and or work up that you may need to determine your ailment or severity of your illness. It is very important that you follow up as instructed or that you return to the Emergency Department should you have concerns or if your condition changes or worsens in any way. Coding Level of Care Code ED Tube Worker for Tang Ambrosio
[2022-08-12 09:10] VITALS: RESP 17; O2SAT 96
[2022-08-12] MEDS: oxyCODONE-APAP 5-325 mg Tablet 1 TAB PO (09:10)
== END 2022-08-12 09:54 | disposition home or self-care (01) ==
PROVIDERS: Emergency Provider Physician Assistant; PCP Internal Medicine
DX: M25.561 Pain in right knee (principal); Z79.82 Long term (current) use of aspirin; Z79.4 Long term (current) use of insulin; Z87.891 Personal history of nicotine dependence; E11.9 Type 2 diabetes mellitus without complications; I11.0 Hypertensive heart disease with heart failure; I50.30 Unspecified diastolic (congestive) heart failure; Z85.3 Personal history of malignant neoplasm of breast; Z95.5 Presence of coronary angioplasty implant and graft
CPT/HCPCS: 93971; 99284

== ENCOUNTER → 2022-08-15 14:04 | Outpatient (BNVA) | payer MEDICARE, MEDICAID, SELFPAY | PROVIDERS: PCP Internal Medicine; Visit Provider Thoracic Surgery (Cardiothoracic Vascular Surgery) | DX: E11.52 Type 2 diabetes mellitus with diabetic peripheral angiopathy with gangrene (principal); L97.322 Non-pressure chronic ulcer of left ankle with fat layer exposed; L97.522 Non-pressure chronic ulcer of other part of left foot with fat layer exposed | CPT/HCPCS: 11042; 97597; 99213; A6212 ==

== ENCOUNTER → 2022-08-18 07:20 | Outpatient (BNVA) | payer MEDICARE, MEDICAID, SELFPAY | PROVIDERS: PCP Internal Medicine; Referring Provider Emergency Medicine; Visit Provider Student in an Organized Health Care Education/Training Program | DX: M25.561 Pain in right knee (principal); M17.11 Unilateral primary osteoarthritis, right knee | CPT/HCPCS: 20610; 73560; 73565; 99203; J3301; L1852 ==

== ENCOUNTER → 2022-08-18 07:29 | Outpatient (BNVA) | payer MEDICARE, MEDICAID, SELFPAY | PROVIDERS: PCP Internal Medicine; Referring Provider Emergency Medicine; Visit Provider Student in an Organized Health Care Education/Training Program | DX: M17.11 Unilateral primary osteoarthritis, right knee (principal) | CPT/HCPCS: 73560; 73565 ==

== ENCOUNTER → 2022-08-29 13:29 | Outpatient (BNVA) | payer MEDICARE, MEDICAID, SELFPAY | PROVIDERS: PCP Internal Medicine; Visit Provider Thoracic Surgery (Cardiothoracic Vascular Surgery) | DX: E11.52 Type 2 diabetes mellitus with diabetic peripheral angiopathy with gangrene (principal); L97.322 Non-pressure chronic ulcer of left ankle with fat layer exposed; L97.522 Non-pressure chronic ulcer of other part of left foot with fat layer exposed | CPT/HCPCS: 11042; 97597; A6021; A6210 ==

== ENCOUNTER 2022-09-02 07:16 | Emergency (ER) | payer MEDICARE, MEDICAID, SELFPAY ==
[2022-09-02] VITALS (7 sets, daily range): BP systolic 188–194; BP diastolic 90–96; PULSE 73–82; RESP 15–18; TEMP 36.8; O2SAT 98; BMI 44.2
--- NOTE | 2022-09-02 07:32 | ECG_ITS ---
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 Measurements Intervals [place] Rate: 73 P: 41 NV: 182 QRS: -32 QRSD: 162 T: 60 QT: 450 QTc: 496 Interpretive Statements SINUS RHYTHM LEFT AXIS DEVIATION [QRS AXIS < -30] RIGHT BUNDLE BRANCH BLOCK [120+ ms QRS DURATION, UPRIGHT V1, 40+ ms S IN I/aVL/V4/V5/V6] Compared to ECG 09/16/2021 17:36:57 Sinus bradycardia no longer present T-wave abnormality no longer present Electronically Signed On 09-02-2022 20:13:31 CDT by Lauren Pagan M.D. [email or web address]
--- NOTE | 2022-09-02 07:32 | XR_ITS ---
WS: [id number] Exam: XR ribs LT mn 3V w CXR1V [id number] Date/Time of Exam: 09/02/2022 7:34 AM Reason For Exam: Pain No acute left rib fracture noted. The left lung is fully inflated and clear. Surgical clips along the left axilla. Cardiomediastinal silhouette appears normal. The right lung is clear and fully expanded . XR/XR ribs LT mn 3V w CXR1V [id number] IMPRESSION: 1. No acute left rib fracture or pneumothorax. 2. No acute cardiopulmonary finding.
[2022-09-02 07:47] LABS: Basophils # 0.1 10^3/uL (0.0-0.1); Basophils % 0.5 %; Eosinophils # 0.2 10^3/uL (0.0-0.8); Eosinophils % 1.7 %; Hematocrit 39.7 % (37.0-47.0); Hemoglobin 12.4 g/dL (11.5-15.3); Lymphocytes # 1.5 10^3/uL (0.8-4.8); Lymphocytes % 12.2 %; Mean Corpuscular HGB Conc 31.2 g/dL (30.0-36.0); Mean Corpuscular Hemoglobin 28.8 pg (28.0-34.0); Mean Corpuscular Volume 92.1 fl (81-99); Mean Platelet Volume 9.6 fL (7.4-10.4); Monocytes # 0.7 10^3/uL (0.2-0.9); Monocytes % 5.1 %; Neutrophils # 10.08 10^3/uL (1.8-7.7); Neutrophils % 79.9 %; Nucleated Red Blood Cells % 0 %; Platelet Count 287 10^3/cmm (130-400); Red Blood Count 4.31 10^6/uL (4.1-5.3); Red Cell Distribution Width 14.4 % (12.1-15.1); White Blood Count 12.6 10^3/uL (4.0-10.0)
--- NOTE | 2022-09-02 07:51 | ED_ITS ---
HPI - Abdominal Pain General: Chief Complaint: Abdominal Pain Stated Complaint: pain LT side rib Time Seen by Provider: 09/02/22 07:17 Source: patient Mode of arrival: ambulatory History of Present Illness: 66-year-old female who presents emergency room with left flank pain. Interestingly it is very cutaneously sensitive at the mid axillary line at the level of the 8th-10th ribs. She does not recall any trauma he has not noticed any rash no previous injury to that area she has had previous left lumpectomy although the area of sensitivity is not immediately overlying the scars. She denies dysuria urgency or frequency fever sweats or chills she noticed that palpation and movement do seem to exacerbate it. MD elicited complaint: abdominal pain Onset (ago): day(s) (2) Location: Other (Left mid axillary line at the level of ribs 8 9 and 10) Severity: moderate Quality: sharp Radiation: none Exacerbating factors: nothing Relieving factors: nothing Associated Symptoms: Denies anorexia, belching, bloating, change in bowel habits, change in stool character, chills, coffee ground emesis, constipation, GI cramping, diarrhea, dyspepsia, dysuria, excessive flatus, fever(s), heartburn, hematochezia, hematuria, hematemesis, fecal incontinence, loose stools, melena, nausea, poor appetite, syncope and vomiting Review of Systems Const: Denies: fever(s), chills, fatigue or malaise ENMT: Denies: throat pain, ear or mastoid pain, nasal discharge or nasal congestion Card: Reports: chest pain; Denies: palpitations, irregular heart rhythm or syncope Resp: Denies: dyspnea, productive cough or non-productive cough GI: Denies: abdominal pain, nausea, vomiting, hematemesis, coffee ground emesis, heartburn, diarrhea, constipation, bloating, GI cramping, belching, excessive flatus, fecal incontinence, change in bowel habits, change in stool character, hematochezia or melena : Denies: dysuria or hematuria Skin/Breast: Denies: rash or pruritus PFS ED PFSH: Medical History Anemia Atrial fibrillation, chronic PT has easy bruising and bleeding tendency Chronic venous insufficiency Diabetes Diastolic heart failure History of breast cancer Hypertension Leg pain Lower extremity edema Peripheral arterial disease Screen for colon cancer Surgical History History of carpal tunnel release of both wrists History of colonoscopy with polypectomy (~08/2019) dr. [facility] [place]. History of coronary angioplasty with insertion of stent History of coronary artery balloon dilation History of esophagogastroduodenoscopy (EGD) (~08/2019) [facility]. History of lumpectomy Family History Father CAD (coronary artery disease), Onset Age: 50 Cancer Diabetes Hyperlipidemia Hypertension Lung disease Denies family history of Clotting disorder Dementia Psychiatric illness Chronic kidney disease (CKD) Suicide Anesthesia complication Bleeding disorder Stroke Social History Smoking and tobacco status: former smoker Quit status (tobacco): has quit using tobacco Year quit tobacco: 2016 - 2PPD x 40 Years Alcohol intake: never Counseling given: No Substance/Drug Use: never Counseling given: No Lives independently: Yes Household members: spouse Marital status: Current occupational status: retired Do you think of yourself as: Straight/Heterosexual Current gender identity: Female Physical Exam Const: GENERAL APPEARANCE: cooperative and comfortable ORIENTATION/CO NSCIOUSNESS: Yes awake, Yes oriented to person, Yes oriented to place and Yes oriented to time HENMT: COMMON NORMALS: normocephalic, atraumatic and hearing grossly normal bilaterally HEAD & SCALP: normocephalic and atraumatic Chest: OTHER: Examination of the chest was no evidence of any vesicular rash trauma or bruising. There is no skin dimpling or induration or sign of skin infection abrasion or laceration. Pain reproducible with relatively light touch. Resp: COMMON NORMALS: normal respiratory effort, No retractions, No use of accessory muscles and clear to auscultation bilaterally AUSCULTATION: clear to auscultation bilaterally Cardio: COMMON NORMALS: regular rate, regular rhythm and No murmurs present (Cardio) RATE: regular rate RHYTHM: regular rhythm GI: COMMON NORMALS: Soft to palpation and No hepatosplenomegaly present AUSCULTATION: Yes normoactive bowel sounds PALPATION: Yes Soft to palpation, No Tenderness to palpation present (GI), No Guarding due to palpation present (GI) and Yes No hepatosplenomegaly present Extremity: COMMON NORMALS: normal to inspection, capillary refill normal, no clubbing, cyanosis or edema, no calf tenderness and no pedal edema Neuro: SENSORIUM/ORIENTATION: Yes oriented to person, Yes oriented to place and Yes oriented to time Skin: COMMON NORMALS: no rashes or lesions noted GENERAL SKIN EXAM: no rashes or lesions noted Course Vital Signs: Vital signs: Vital Signs Temperature 98.3 F 09/02/22 07:24 Pulse Rate 73 09/02/22 10:43 Respiratory Rate 15 09/02/22 08:43 Blood Pressure 188/96 09/02/22 10:43 Pulse Oximetry 98 09/02/22 10:43 Oxygen Delivery Me thod Room Air 09/02/22 09:45 MDM - Abdominal Pain Medical Decision Making Labs and imaging reviewed. Discussed with the patient. She has no abdominal discomfort and her rib pain is very cutaneous there is no evidence of vesicular rash. She has no urinary tract symptoms no respiratory symptoms discharge patient home tramadol to use as needed for pain if symptoms worsen or change return if develops rash contact your primary care doctor. Did discuss for fu rther potential for this to be a nerve root irritation although it is unusual at thoracic level as possible. If it persists she may need to follow-up with her primary care physician for further evaluation and possible advanced imaging Medical Records I reviewed the patient's medical records. Lab Data I reviewed the patient's lab results. 09/02/22 07:36 09/02/22 07:36 Labs/Radiology: Radiology Impressions Ribs X-Ray 09/02/22 07:32 IMPRESSION: 1. No acute left rib fracture or pneumothorax. 2. No acute cardiopulmonary finding. Laboratory Results WBC 12.6 10^3/uL (4.0-10.0) H 09/02/22 07:36 RBC 4.31 10^6/uL (4.1-5.3) 09/02/22 07:36 Hgb 12.4 g/dL (11.5-15.3) 09/02/22 07:36 Hct 39.7 % (37.0-47.0) 09/02/22 07:36 MCV 92.1 fl (81-99) 09/02/22 07:36 MCH 28.8 pg (28.0-34.0) 09/02/22 07:36 MCHC 31.2 g/dL (30.0-36.0) 09/02/22 07:36 RDW 14.4 % (12.1-15.1) 09/02/22 07:36 Plt Count 287 10^3/cmm (130-400) 09/02/22 07:36 MPV 9.6 fL (7.4-10.4) 09/02/22 07:36 Neut % (Auto) 79.9 % 09/02/22 07:36 Lymph % (Auto) 12.2 % 09/02/22 07:36 [place] % (Auto) 5.1 % 09/02/22 07:36 Eos % (Auto) 1.7 % 09/02/22 07:36 Baso % (Auto) 0.5 % 09/02/22 07:36 Neut # (Auto) 10.08 10^3/uL (1.8-7.7) H 09/02/22 07:36 Lymph # (Auto) 1.5 10^3/uL (0.8-4.8) 09/02/22 07:36 [place] # (Auto) 0.7 10^3/uL (0.2-0.9) 09/02/22 07:36 Eos # (Auto) 0.2 10^3/uL (0.0-0.8) 09/02/22 07:36 Baso # (Auto) 0.1 10^3/uL (0.0-0.1) 09/02/22 07:36 Nucleated RBC % (auto) 0 % 09/02/22 07:36 Nucleated RBCs # 0.0 /100WBC 09/02/22 07:36 Sodium 136 mmol/L (136-145) 09/02/22 07:36 Potassium 4.5 mmol/L (3.5-5.1) 09/02/22 07:36 Chloride 99 mmol/L (98-107) 09/02/22 07:36 Carbon Dioxide 25 mmol/L (22-29) 09/02/22 07:36 Anion Gap 16.5 (5-19) 09/02/22 07:36 BUN 31 mg/dL (8-23) H 09/02/22 07:36 Creatinine 1.2 mg/dL (0.5-0.9) H 09/02/22 07:36 GFR Calculation 44.9 mL/min (90-130) L 09/02/22 07:36 Glucose 213 mg/dL (65-115) H 09/02/22 07:36 Calculated Osmolality 295 mOsm/kg (285-295) 09/02/22 07:36 Calcium 9.3 mg/dL (8.5-10.5) 09/02/22 07:36 Troponin T Baseline 30 ng/L (0-10) H 09/02/22 07:36 Troponin T 120 Minute 25.76 ng/L (0-10) H 09/02/22 09:30 Delta Troponin T -4.24 ABS# (0-10) L 09/02/22 09:30 Urine Color Yellow (Yellow) 09/02/22 08:23 Urine Appearance Clear (CLEAR) 09/02/22 08:23 Urine pH 8 (5-7) H 09/02/22 08:23 Ur Specific [place] 1.010 (1.005-1.030) 09/02/22 08:23 Urine Protein 1+ (Negative) H 09/02/22 08:23 Urine Glucose (UA) Norm (Normal) 09/02/22 08:23 Urine Ketones Negative (Negative) 09/02/22 08:23 Urine Blood 2+ (Negative) H 09/02/22 08:23 Urine Nitrate Negative (Negative) 09/02/22 08:23 Urine Bilirubin Neg (Negative) 09/02/22 08:23 Prot Sulfosalicylic Acd Positive (Negative) 09/02/22 08:23 Urine Urobilinogen Norm mg/dL (Negative) 09/02/22 08:23 Ur Leukocyte Esterase Negative (Negative) 09/02/22 08:23 Urine RBC 0-4 /hpf (0-2) H 09/02/22 08:23 Urine WBC 0-4 /hpf (0-5) H 09/02/22 08:23 Ur Squamous Epith Cells 5-10 /hpf (0-5) H 09/02/22 08:23 Amorphous Sediment Not Reportable 09/02/22 08:23 Urine Bacteria Trace /hpf (NONE) 09/02/22 08:23 Discharge Plan Discharge Patient Disposition: Home Clinical Impression: Chest wall pain, Hypertension Condition: Stable Prescriptions: New Toprol XL 25 mg tablet extended release 24 hr 25 mg PO DAILY Qty: 30 0RF No Action Tresiba FlexTouch U-100 100 unit/mL (3 mL) insulin pen 42 unit SUBCUT BID albuterol sulfate 90 mcg/actuation HFA aerosol inhaler 2 puff inhalation Q6H PRN (Reason: Shortness Of Breath) insulin lispro [Humalog KwikPen Insulin] 100 unit/mL insulin pen 35 unit SUBCUT TID (DME) [employer] Representatives brace See Rx Instructions .Route .MEDSUPPLY Qty: 1 0RF Rx Instructions: As directed Stiolto Respimat 2.5-2.5 mcg/actuation mist 2 puff inhalation DAILY@07 Qty: 4 5RF clonidine HCl 0.1 mg tablet 0.1 mg PO Q8H simvastatin 10 mg tablet 10 mg PO DAILY@2200 metolazone 5 mg tablet 5 mg PO EVERY OTHER DAY Rx Instructions: take at 0700 allopurinol 100 mg tablet 100 mg PO DAILY@0700 isosorbide mononitrate 60 mg tablet extended release 24 hr 90 mg PO DAILY@0700 amlodipine 10 mg tablet 10 mg PO BEDTIME gabapentin 300 mg capsule 300 mg PO TID@07,, polyethylene glycol 3350 17 gram/dose powder 17 g PO DAILY PRN (Reason: Constipation) potassium chloride 20 mEq tablet extended release 20 meq PO DAILY@0700 aspirin 325 mg Tablet 325 mg PO DAILY@0700 Hold Instructions: Resume on 09/09/19. spironolactone 25 mg tablet 25 mg PO DAILY cholecalciferol (vitamin D3) 1,250 mcg (50,000 unit) capsule 50,000 unit PO Q7D Rx Instructions: ON amitriptyline 25 mg tablet 25 mg PO BEDTIME@2200 furosemide 80 mg tablet 80 mg PO DAILY tramadol 50 mg tablet 50 mg PO BID PRN (Reason: Pain) Discharge Orders: Discharge ED (Routine); Ordered 09/02/22 Ordered By: Godwin Mclaughlin Referrals: Jeanine Solares MD [Primary Care Provider] - Discharge Diet: Usual diet Discharge Activity: Increase activity as tolerated Patient Instructions: Opioid Safety, Pain Management Activity Restrictions/Additional Instructions: Follow-up within the next week with your primary care doctor to recheck blood pressure. He is previously prescribed tramadol for pain. 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
[2022-09-02] MEDS: morphine 4 mg/mL SDV 1 mL IVP (07:58)
[2022-09-02 08:16] LABS: Anion Gap 16.5 (5-19); Blood Urea Nitrogen 31 mg/dL (8-23); Calcium 9.3 mg/dL (8.5-10.5); Carbon Dioxide 25 mmol/L (22-29); Chloride 99 mmol/L (98-107); Creatinine Clr Calc Pharmacy 62.0945; Glomerular Filtration Rate 44.9 mL/min (90-130); Glucose 213 mg/dL (65-115); Osmolality Calculated 295 mOsm/kg (285-295); Potassium 4.5 mmol/L (3.5-5.1); Sodium 136 mmol/L (136-145); Troponin(5th) Baseline 30 ng/L (0-10)
[2022-09-02 08:44] LABS: Add Urine Microscopic? YES; Bilirubin Urine Neg (Negative); Blood Urine 2+ (Negative); Glucose Urine UA Norm (Normal); Ketones Urine Negative (Negative); Leukocyte Esterase Urine Negative (Negative); Nitrate Urine Negative (Negative); Protein Urine 1+ (Negative); Sulfosalicylic Acid Urine Positive (Negative); Urine Appearance Clear (CLEAR); Urine Color Yellow (Yellow); Urobilinogen Urine Norm (Negative); pH Urine 8 (5-7)
[2022-09-02 08:47] LABS: Bacteria Urine TRACE /hpf; RBC Urine 0-4 /hpf (0-2); WBC Urine 0-4 /hpf (0-5)
--- NOTE | 2022-09-02 08:47 | PC.NURSE ---
Pt blood pressure high upon assessment. Pt verbalized she takes blood pressure medication and didnt take it this morning. Provider notified.
--- NOTE | 2022-09-02 09:00 | PC.PHAR ---
PT STATES SHE STILL USES THE ALBUTEROL INHALER NEEDED, VIT D3 50,000 UNITS ON THURSDAY(NOT THU). SHE STATES FUROSEMIDE 80 MG IS CHANGED TO ONE DAILY, SPIRONOLACTONE 25 MG IS CHANGED TO ONE DAILY. PT STATES SHE TAKES ISOSORBIDE MON. 60 MG ER ONE AND ONE-HALF TABLEST DAILY.
--- NOTE | 2022-09-02 09:56 | ECG_ITS ---
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 Measurements Intervals [place] Rate: 69 P: 48 MS: 178 QRS: -31 QRSD: 151 T: 55 QT: 446 QTc: 480 Interpretive Statements SINUS RHYTHM LEFT AXIS DEVIATION [QRS AXIS < -30] RIGHT BUNDLE BRANCH BLOCK [120+ ms QRS DURATION, UPRIGHT V1, 40+ ms S IN I/aVL/V4/V5/V6] Compared to ECG 09/02/2022 07:52:10 No significant changes Electronically Signed On 09-02-2022 20:27:30 CDT by Lauren Pagan M.D. [email or web address] [email or web address]/store/[id number]
[2022-09-02 10:06] LABS: Troponin 5 2HR 25.76 ng/L (0-10)
[2022-09-02 10:09] LABS: Troponin 5 2HR Delta -4.24 ABS# (0-10)
== END 2022-09-02 10:41 | disposition home or self-care (01) ==
PROVIDERS: Emergency Provider Family Medicine; PCP Internal Medicine
DX: R07.89 Other chest pain (principal); Z79.82 Long term (current) use of aspirin; Z79.4 Long term (current) use of insulin; Z87.891 Personal history of nicotine dependence; E11.9 Type 2 diabetes mellitus without complications; I11.0 Hypertensive heart disease with heart failure; I50.30 Unspecified diastolic (congestive) heart failure; Z85.3 Personal history of malignant neoplasm of breast; Z95.5 Presence of coronary angioplasty implant and graft
CPT/HCPCS: 71101; 80048; 81001; 84484; 85025; 93005; 96374; 99285; J2270

== ENCOUNTER 2022-09-04 06:46 | Outpatient (CLI) | payer MEDICARE, MEDICAID, SELFPAY ==
--- NOTE | 2022-09-04 07:13 | CTR_ITS ---
PROCEDURE INFORMATION: Exam: CTA Abdominal Aorta and Bilateral Lower Extremities (Run-off) With Contrast Exam date and time: 09/04/2022 7:28 AM Age: 66 years old Clinical indication: Condition or disease; Other: I87.2 - venous insufficiency (chronic) (peripheral); Additional info: I87.2 - venous insufficiency (chronic) (peripheral) TECHNIQUE: Imaging protocol: Computed tomographic angiography of the of the abdominal aorta, pelvis and bilateral lower extremities with contrast. 3D rendering (Not supervised by radiologist): MIP and/or 3D reconstructed images were created by the technologist. Radiation optimization: All CT scans at this facility use at least one of these dose optimization techniques: automated exposure control; mA and/or kV adjustment per patient size (includes targeted exams where dose is matched to clinical indication); or iterative reconstruction. Contrast material: OMNI 350; Contrast volume: 100 ml; Contrast route: INTRAVENOUS (IV); REPORTING DATA: Count of CT and Cardiac NM exams in prior 12 months: This patient has received [address] and 0 known cardiac nuclear medicine studies in the 12 months prior to the current study. COMPARISON: 1. CT angio abd aorta runof [id number] 07/28/2017 1:[address] abdomen pelvis w con* [id number] 12/06/2020 9:[address] abdomen pelvis w con* [id number] 01/25/2020 4:07 PM RADIATION DOSE METRICS: Total DLP (mGy-cm): 1279.42 FINDINGS: Limitations: Suboptimal delayed contrast bolus timing decreases sensitivity for arterial vascular pathology, essentially rendering this exam nondiagnostic. Aorta: Heavy systemic atherosclerotic calcification without aortic aneurysm. Celiac trunk and mesenteric arteries: Nondiagnostic based on contrast bolus timing. Renal arteries: Bilateral proximal narrowing by calcific plaque. Right iliac arteries: No aneurysm. Otherwise nondiagnostic based on contrast bolus timing. Right femoral/popliteal arteries: No aneurysm. Otherwise nondiagnostic based on contrast bolus timing. Right infrapopliteal arteries: Nondiagnostic based on contrast bolus timing. Left iliac arteries: Narrowing of the proximal left internal iliac artery by calcific plaque. Left femoral/popliteal arteries: No aneurysm. Otherwise nondiagnostic based on contrast bolus timing. Left infrapopliteal arteries: Nondiagnostic based on contrast bolus timing. Lungs: Bibasilar linear scarring versus atelectasis. Coronary arteries: Coronary artery calcification. Liver: Elongated right hepatic lobe may be on the basis of Reidel morphology, stable. Diaphragm: Small hiatal hernia. Gallbladder and bile ducts: Mild dependent layering hyperdensity in the gallbladder may represent stones versus vicarious excretion of contrast material. No biliary ductal dilatation. Pancreas: Diffuse pancreatic atrophy. Spleen: Normal. Adrenal glands: Increasing size of right adrenal mass measuring 5.0 x 3.9 x 6.0 cm, previously 4.6 x 3.2 x 5.0 cm in July 2017. Redemonstrated left adrenal myelolipomas, the largest measuring up to 2.5 cm. Kidneys and ureters: Couple of stable bilateral renal calcifications may be vascular in etiology. Subcentimeter bilateral renal hypodensities are too small to characterize. Otherwise unremarkable. Stomach and bowel: No bowel dilatation or mucosal thickening. Colonic diverticulosis without findings of diverticulitis. Appendix: No evidence of appendicitis. Urinary bladder: Urinary bladder is unremarkable. Reproductive: Unremarkable as visualized. Intraperitoneal space: No free air, free fluid, or well-organized fluid collection. Lymph nodes: No enlarged lymph nodes. Bones/joints: No acute fracture. No dislocation. Levoconvex lumbar spine curvature. Degenerative changes along the spine and bilateral knees. Soft tissues: Unremarkable. CT/CT angio abd aorta runof [id number] IMPRESSION: 1. Suboptimal delayed contrast bolus timing significantly decreases sensitivity, rendering evaluation essentially nondiagnostic with regard to the arterial system. Note also of poorly opacified venous system. 2. Heavy atherosclerosis with coronary artery calcification. 3. Increasing size of 6 cm right adrenal mass. Recommend dedicated adrenal CT or MRI with and without contrast. 4. Cholelithiasis versus vicarious excretion of contrast material in the gallbladder. 5. Colonic diverticulosis.
[2022-09-04] MEDS: iohexol 350 mg/mL 500 mL Btl (per mL) IV (07:15)
== END 2022-09-04 06:47 | disposition home or self-care (01) ==
PROVIDERS: PCP Internal Medicine; Visit Provider Thoracic Surgery (Cardiothoracic Vascular Surgery)
DX: I87.2 Venous insufficiency (chronic) (peripheral) (principal); I25.10 Atherosclerotic heart disease of native coronary artery without angina pectoris; E27.9 Disorder of adrenal gland, unspecified; K57.90 Diverticulosis of intestine, part unspecified, without perforation or abscess without bleeding
CPT/HCPCS: 75635; Q9967

== ENCOUNTER → 2022-09-12 15:09 | Outpatient (BNVA) | payer MEDICARE, MEDICAID, SELFPAY | PROVIDERS: PCP Internal Medicine; Visit Provider Thoracic Surgery (Cardiothoracic Vascular Surgery) | DX: E11.52 Type 2 diabetes mellitus with diabetic peripheral angiopathy with gangrene (principal); L97.322 Non-pressure chronic ulcer of left ankle with fat layer exposed; L97.522 Non-pressure chronic ulcer of other part of left foot with fat layer exposed | CPT/HCPCS: 97597; 97598 ==

== ENCOUNTER 2022-09-15 06:20 | Outpatient (CLI) | payer MEDICARE, MEDICAID, SELFPAY ==
--- NOTE | 2022-09-15 06:30 | CT_ITS ---
WS: [id number] CTA ABDOMINAL AORTA WITH RUNOFF TECHNIQUE: Contrast enhanced CTA of the abdominal aorta with bilateral lower extremity runoff. Multip lanar reformatted images were obtained. MIP reformats were also reviewed. CLINICAL INFORMATION: M79.606 - Pain in leg, unspecified COMPARISON: None. DLP: 1538.[address] scans at [facility] use at least one of these dose optimization techniques: automated e xposure control; mA and/or kV adjustment per patient size (includes targeted exams where dose is matc hed to clinical indication); or iterative reconstruction. FINDINGS: Improved opacification of the abdominal aorta with persistent poor opacification of the pro ximal lower extremity arteries. Poor opacification distal arteries. Contrast injected x2 with delayed and manual contrast triggering. 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 SMA is patent. Dense calcified mesenteric arteries. S plenic artery calcification. 3.4 x 4.6 cm RIGHT adrenal mass. Vicarious excretion of contrast in the gallbladder. Slight bibasilar atelectasis.Normal caliber abdominal aorta. Densely calcified renal art akshat ostia. Diffuse fatty infiltration of the liver. Fatty atrophy of the pancreas. LEFT adrenal myelo lipoma measuring 1.8 cm. Smaller LEFT adrenal myelolipoma measuring 0.9 cm small esophageal hiatal he rnia. Normal renal parenchymal enhancement. No hydronephrosis. Small bilateral renal cysts. Sigmoid d iverticulosis. Advanced spondylitic changes lumbar spine. RIGHT: Dense calcified iliac arteries. RIGHT common iliac artery is patent. External and internal karri ac arteries are patent with advanced calcification. Somewhat diminutive but patent external iliac art akshat. Small but patent common femoral artery with dense calcification. Tiny calcified superficial femoral a rtery with segmental moderate to severe stenosis. This appears patent to the popliteal artery. Densel y calcified tiny popliteal artery with poor flow distally. Densely calcified and atretic calf arterie s with poor flow. KRISTINE is patent. LEFT: LEFT common iliac artery is patent. Common iliac artery is patent. Densely calcified internal i liac artery. External iliac artery appears patent. Common femoral artery is poorly opacified but appe ars patent. Densely calcified deep femoral artery. Superficial femoral artery demonstrates poor opaci fication and difficult to further evaluate. Poor flow in the popliteal artery with poor opacification . Very poor flow in the atretic calf arteries which are diminutive. CT/CT angio abd aorta runof [id number] IMPRESSION: 1. RIGHT: Dense calcified iliac arteries. RIGHT common iliac artery is patent. External and internal iliac arteries are patent with advanced calcification. S omewhat diminutive but patent external iliac artery.Small but patent common fem oral artery with dense calcification. Tiny calcified superficial femoral artery with segmental moderate to severe stenosis. This appears patent to the poplite al artery. Densely calcified tiny popliteal artery with multifocal severe steno sis and poor flow distally. Densely calcified and atretic calf arteries with ve ry poor flow. 2. LEFT: LEFT common iliac artery is patent. Common iliac artery is patent. De nsely calcified internal iliac artery. External iliac artery appears patent. Co mmon femoral artery is poorly opacified but appears patent. Superficial femoral artery demonstrates poor opacification and difficult to further evaluate. Poor flow in the popliteal artery with poor opacification. Very poor flow in the at retic calf arteries which are diminutive. 3. Consider further evaluation of the LEFT common femoral, superficial femoral , and popliteal artery with ultrasound. These are poorly opacified today. 4. Normal caliber abdominal aorta. 5. Densely calcified renal artery origins. 6. 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 7. 6 cm RIGHT adrenal mass. This can be further evaluated with CT abdomen with adrenal protocol
[2022-09-15] MEDS: iohexol 350 mg/mL 500 mL Btl (per mL) IV (07:21)
== END 2022-09-15 06:21 | disposition home or self-care (01) ==
PROVIDERS: PCP Internal Medicine; Visit Provider Thoracic Surgery (Cardiothoracic Vascular Surgery)
DX: I73.9 Peripheral vascular disease, unspecified (principal); M79.606 Pain in leg, unspecified; S81.802A Unspecified open wound, left lower leg, initial encounter; X58.XXXA Exposure to other specified factors, initial encounter
CPT/HCPCS: 11042; 75635; 97597; A6021; Q9967

== ENCOUNTER → 2022-09-17 15:03 | Outpatient (BNVA) | payer MEDICARE, MEDICAID, SELFPAY | PROVIDERS: PCP Internal Medicine; Visit Provider Thoracic Surgery (Cardiothoracic Vascular Surgery) | DX: E11.52 Type 2 diabetes mellitus with diabetic peripheral angiopathy with gangrene (principal); L97.322 Non-pressure chronic ulcer of left ankle with fat layer exposed; L97.522 Non-pressure chronic ulcer of other part of left foot with fat layer exposed; L97.822 Non-pressure chronic ulcer of other part of left lower leg with fat layer exposed | CPT/HCPCS: 97597; 97598; A6248 ==

== ENCOUNTER → 2022-09-24 13:09 | Outpatient (BNVA) | payer MEDICARE, MEDICAID, SELFPAY | PROVIDERS: PCP Internal Medicine; Visit Provider Thoracic Surgery (Cardiothoracic Vascular Surgery) | DX: E11.52 Type 2 diabetes mellitus with diabetic peripheral angiopathy with gangrene (principal); L97.322 Non-pressure chronic ulcer of left ankle with fat layer exposed; L97.522 Non-pressure chronic ulcer of other part of left foot with fat layer exposed; L97.822 Non-pressure chronic ulcer of other part of left lower leg with fat layer exposed | CPT/HCPCS: 11042; 97597; 97598; A6021 ==

== ENCOUNTER → 2022-10-01 13:49 | Outpatient (BNVA) | payer MEDICARE, MEDICAID, SELFPAY | PROVIDERS: PCP Internal Medicine; Visit Provider Thoracic Surgery (Cardiothoracic Vascular Surgery) | DX: E11.52 Type 2 diabetes mellitus with diabetic peripheral angiopathy with gangrene (principal); L97.322 Non-pressure chronic ulcer of left ankle with fat layer exposed; L97.522 Non-pressure chronic ulcer of other part of left foot with fat layer exposed; L97.822 Non-pressure chronic ulcer of other part of left lower leg with fat layer exposed | CPT/HCPCS: 97597; 97598; 99214; A6021 ==

== ENCOUNTER → 2022-10-08 11:13 | Outpatient (BNVA) | payer MEDICARE, MEDICAID, SELFPAY | PROVIDERS: PCP Internal Medicine; Visit Provider Thoracic Surgery (Cardiothoracic Vascular Surgery) | DX: E11.52 Type 2 diabetes mellitus with diabetic peripheral angiopathy with gangrene (principal); L97.322 Non-pressure chronic ulcer of left ankle with fat layer exposed; L97.522 Non-pressure chronic ulcer of other part of left foot with fat layer exposed; L97.822 Non-pressure chronic ulcer of other part of left lower leg with fat layer exposed | CPT/HCPCS: 97597; 97598 ==

== ENCOUNTER 2022-10-15 05:57 | Outpatient (CLI) | payer MEDICARE, MEDICAID, SELFPAY ==
[2022-10-14 06:50] VITALS: BP 117/73; PULSE 81; RESP 16; TEMP 36.6; O2SAT 96; BMI 44.6
[2022-10-14 09:01] LABS: Basophils # 0.1 10^3/uL (0.0-0.1); Basophils % 0.9 %; Eosinophils # 0.5 10^3/uL (0.0-0.8); Eosinophils % 3.6 %; Hematocrit 35.4 % (36-47); Lymphocytes % 16.2 %; Mean Corpuscular HGB Conc 30.8 g/dL (30-55); Mean Corpuscular Hemoglobin 29.5 pg (27-33); Mean Corpuscular Volume 95.7 fl (85-98); Mean Platelet Volume 9.2 fL (7.4-10.4); Monocytes # 0.7 10^3/uL (0.2-0.9); Monocytes % 5.9 %; Neutrophils # 9.02 10^3/uL (1.8-7.7); Neutrophils % 72.6 %; Nucleated Red Blood Cells % 0 %; Platelet Count 283 10^3/cmm (157-399); Red Cell Distribution Width 15.3 % (12.1-15.1); White Blood Count 12.44 10^3/uL (3.29-11.43)
[2022-10-14 09:15] LABS: INR 1.14 (0.83-1.21)
[2022-10-15] MEDS: diphenhydrAMINE 50 mg Capsule PO (06:10)
[2022-10-15 06:18] LABS: Glucose Point of Care 210 mg/dL (70-110)
[2022-10-15 07:09] LABS: Anion Gap 16.7 (5-19); Blood Urea Nitrogen 63 mg/dL (8-23); Calcium 9.7 mg/dL (8.5-10.5); Carbon Dioxide 19 mmol/L (22-29); Chloride 107 mmol/L (98-107); Glomerular Filtration Rate 23.6 mL/min (90-130); Glucose 205 mg/dL (65-115); Osmolality Calculated 304 mOsm/kg (285-295); Sodium 135 mmol/L (136-145)
[2022-10-15 07:14] LABS: Potassium 7.7 mmol/L (3.5-5.1)
--- NOTE | 2022-10-15 07:17 | PC.NURSE ---
CRITICAL LABS K+ 7.[address] Argueta notified. Procedure cancelled. Requests that patient go to ER to be evaluated for critical potassium. ER notified of pending admission. Patient agreeable. Transferred by bed to ER for evaluauation. Family taken to .
== END 2022-10-15 05:58 | disposition home or self-care (01) ==
PROVIDERS: PCP Internal Medicine; Visit Provider Internal Medicine
DX: I10 Essential (primary) hypertension (principal); I25.10 Atherosclerotic heart disease of native coronary artery without angina pectoris; I73.9 Peripheral vascular disease, unspecified; Z53.09 Procedure and treatment not carried out because of other contraindication
CPT/HCPCS: 36415; 36416; 80048; 82962; 85025; 85610; 96360; J1644; J2250; J3010; J7030; Q0163

== ENCOUNTER 2022-10-15 07:28 | Inpatient (IN) | payer MEDICARE, MEDICAID, SELFPAY ==
[2022-10-15] VITALS (139 sets, daily range): BP systolic 114–208; BP diastolic 53–105; PULSE 62–99; RESP 12–35; TEMP 36.6–36.9; O2SAT 92–100; BMI 44.2
[2022-10-15 07:56] LABS: Basophils # 0.1 10^3/uL (0.0-0.1); Basophils % 0.9 %; Eosinophils # 0.4 10^3/uL (0.0-0.8); Eosinophils % 3.1 %; Lymphocytes # 1.9 10^3/uL (0.8-4.8); Lymphocytes % 15.3 %; Mean Corpuscular HGB Conc 30.6 g/dL (30-55); Mean Corpuscular Hemoglobin 29.5 pg (27-33); Mean Corpuscular Volume 96.5 fl (85-98); Mean Platelet Volume 9.5 fL (7.4-10.4); Monocytes # 0.6 10^3/uL (0.2-0.9); Monocytes % 5.1 %; Neutrophils # 9.04 10^3/uL (1.8-7.7); Neutrophils % 74.9 %; Nucleated Red Blood Cells % 0 %; Platelet Count 283 10^3/cmm (157-399); Red Blood Count 3.73 10^6/uL (3.85-5.65); Red Cell Distribution Width 15.1 % (12.1-15.1); White Blood Count 12.08 10^3/uL (3.29-11.43)
--- NOTE | 2022-10-15 07:56 | ECG_ITS ---
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 Measurements Intervals [place] Rate: 66 P: 0 NH: 0 QRS: -69 QRSD: 190 T: 52 QT: 454 QTc: 476 Interpretive Statements SINUS RHYTHM WITH FIRST DEGREE AV BLOCK WITH PAC LEFT AXIS DEVIATION [QRS AXIS < -30] RIGHT BUNDLE BRANCH BLOCK [120+ ms QRS DURATION, UPRIGHT V1, 40+ ms S IN I/aVL/V4/V5/V6] POSSIBLE SEPTAL MYOCARDIAL INFARCTION , OF INDETERMINATE AGE [30 ms Q WAVE IN V1/V2] Compared to ECG 09/02/2022 09:56:27 Myocardial infarct finding now present Electronically Signed On 10-15-2022 8:41:12 CDT by Lauren Pagan M.D. [id number]
--- NOTE | 2022-10-15 08:00 | W.ED.RECABL ---
HPI - Recheck/Abnormal Lab/Rx General: Chief Complaint: Recheck/Abnormal Lab/Rx Stated Complaint: Abnormal Labs Time Seen by Provider: 10/15/22 07:41 Source: patient Mode of arrival: ambulatory History of Present Illness: 66-year-old female presents to the emergency room from outpatient setting. She was scheduled for a left lower extremity angiogram due to a nonhealing left ankle ulcer. Preop labs showed a potassium of seven-point 7 repeat potassium in the emergency room 8.1. Patient is on spironolactone and potassium supplement was fasting overnight in preparation for the angiogram today. She denies any other symptoms. She is on spironolactone and FERNIE inhibitor as well as potassium supplement. MD complaint: abnormal lab Symptoms since prior visit: no new symptoms Associated symptoms: none Review of Systems Const: Denies: fever(s), chills, body aches, change in appetite, fatigue or malaise ENMT: Denies: throat pain, ear or mastoid pain, nasal discharge or nasal congestion Card: Denies: chest pain, edema, dyspnea on exertion or orthopnea Resp: Denies: dyspnea, productive cough or non-productive cough GI: Denies: abdominal pain, nausea, vomiting, hematemesis, coffee ground emesis, diarrhea, constipation, bloating, hematochezia or melena : Denies: flank pain, difficulty voiding, dysuria, urinary frequency or urinary urgency Skin/Breast: Denies: rash or pruritus PFSH ED PFSH: Medical History Anemia Atrial fibrillation, chronic Chronic venous insufficiency Diabetes Diastolic heart failure History of breast cancer Hypertension Leg pain Lower extremity edema Peripheral arterial disease Screen for colon cancer Surgical History History of carpal tunnel release of both wrists History of colonoscopy with polypectomy (~08/2019) [facility]. History of coronary angioplasty with insertion of stent History of coronary artery balloon dilation History of esophagogastroduodenoscopy (EGD) (~08/2019) [facility]. History of lumpectomy Family History Father CAD (coronary artery disease), Onset Age: 50 Cancer Diabetes Hyperlipidemia Hypertension Lung disease Denies family history of Clotting disorder Dementia Psychiatric illness Chronic kidney disease (CKD) Suicide Anesthesia complication Bleeding disorder Stroke Social History Smoking and tobacco status: former smoker Quit status (tobacco): has quit using tobacco Year quit tobacco: 2016 - 2PPD x 40 Years Alcohol intake: never Counseling given: No Substance/Drug Use: never Counseling given: No Lives independently: Yes Household members: spouse Marital status: Current occupational status: retired Do you think of yourself as: Straight/Heterosexual Current gender identity: Female Physical Exam Const: GENERAL APPEARANCE: cooperative and comfortable ORIENTATION/CONSCIOUSNESS: Yes awake, Yes oriented to person, Yes oriented to place and Yes oriented to time HENMT: COMMON NORMALS: normocephalic, atraumatic and hearing grossly normal bilaterally HEAD & SCALP: normocephalic and atraumatic Resp: COMMON NORMALS: normal respiratory effort, No retractions, No use of accessory muscles and clear to auscultation bilaterally AUSCULTATION: clear to auscultation bilaterally Cardio: COMMON NORMALS: regular rate, regular rhythm and No murmurs present (Cardio) RATE: regular rate RHYTHM: regular rhythm GI: COMMON NORMALS: Soft to palpation and No hepatosplenomegaly present AUSCULTATION: Yes normoactive bowel sounds PALPATION: Yes Soft to palpation, No Tenderness to palpation present (GI), No Guarding due to palpation present (GI) and Yes No hepatosplenomegaly present Extremity: COMMON NORMALS: normal to inspection, capillary refill normal, no clubbing, cyanosis or edema, no calf tenderness and no pedal edema Neuro: SENSORIUM/ORIENTATION: Yes oriented to person, Yes oriented to place and Yes oriented to time Skin: COMMON NORMALS: no rashes or lesions noted GENERAL SKIN EXAM: no rashes or lesions noted Course Vital Signs: Vital signs: Vital Signs Temperature 98.4 F 10/15/22 07:33 Pulse Rate 66 10/15/22 07:38 Respiratory Rate 22 H 10/15/22 07:38 Blood Pressure 142/76 10/15/22 07:38 Pulse Oximetry 96 10/15/22 07:38 Oxygen Delivery Me thod Room Air 10/15/22 07:38 MDM - Recheck/Abnormal Lab/Rx Medical Decision Making Acute hyperkalemia suspect is due to combination of her chronic kidney disease as well as spironolactone FERNIE inhibitor and potassium supplement. Patient has been given calcium chloride and sodium bicarb albuterol and insulin as well as fluids we will admit Dr. Tolentino to the ICU. Medical Records I reviewed the patient's medical records. Lab Data I reviewed the patient's lab results. 10/15/22 07:50 10/15/22 07:50 Laboratory Results WBC 12.08 10^3/uL (3.29-11.43) H 10/15/22 07:50 RBC 3.73 10^6/uL (3.85-5.65) L 10/15/22 07:50 Hgb 11.00 g/dL (11.27-16.99) L 10/15/22 07:50 Hct 36.0 % (36-47) 10/15/22 07:50 MCV 96.5 fl (85-98) 10/15/22 07:50 MCH 29.5 pg (27-33) 10/15/22 07:50 MCHC 30.6 g/dL (30-55) 10/15/22 07:50 RDW 15.1 % (12.1-15.1) 10/15/22 07:50 Plt Count 283 10^3/cmm (157-399) 10/15/22 07:50 MPV 9.5 fL (7.4-10.4) 10/15/22 07:50 Neut % (Auto) 74.9 % 10/15/22 07:50 Lymph % (Auto) 15.3 % 10/15/22 07:50 [place] % (Auto) 5.1 % 10/15/22 07:50 Eos % (Auto) 3.1 % 10/15/22 07:50 Baso % (Auto) 0.9 % 10/15/22 07:50 Neut # (Auto) 9.04 10^3/uL (1.8-7.7) H 10/15/22 07:50 Lymph # (Auto) 1.9 10^3/uL (0.8-4.8) 10/15/22 07:50 [place] # (Auto) 0.6 10^3/uL (0.2-0.9) 10/15/22 07:50 Eos # (Auto) 0.4 10^3/uL (0.0-0.8) 10/15/22 07:50 Baso # (Auto) 0.1 10^3/uL (0.0-0.1) 10/15/22 07:50 Nucleated RBC % (auto) 0 % 10/15/22 07:50 Nucleated RBCs # 0.0 /100WBC 10/15/22 07:50 Sodium 134 mmol/L (136-145) L 10/15/22 07:50 Potassium 8.1 mmol/L (3.5-5.1) H* 10/15/22 07:50 Chloride 107 mmol/L (98-107) 10/15/22 07:50 Carbon Dioxide 18 mmol/L (22-29) L 10/15/22 07:50 Anion Gap 17.1 (5-19) 10/15/22 07:50 BUN 63 mg/dL (8-23) H 10/15/22 07:50 Creatinine 2.3 mg/dL (0.5-0.9) H 10/15/22 07:50 GFR Calculation 21.2 mL/min (90-130) L 10/15/22 07:50 Glucose 207 mg/dL (65-115) H 10/15/22 07:50 Calculated Osmolality 302 mOsm/kg (285-295) H 10/15/22 07:50 Calcium 9.6 mg/dL (8.5-10.5) 10/15/22 07:50 Magnesium 2.0 mg/dL (1.7-2.3) 10/15/22 07:50 Total Bilirubin 0.2 mg/dL (0.15-1.2) 10/15/22 07:50 AST 12 U/L (0-32) 10/15/22 07:50 ALT 14 U/L (0-33) 10/15/22 07:50 Alkaline Phosphatase 115 U/L (35-105) H 10/15/22 07:50 Total Protein 7.5 g/dL (6.6-8.7) 10/15/22 07:50 Albumin 3.7 g/dL (3.5-5.2) 10/15/22 07:50 Globulin 3.8 g/dL (1.3-4.6) 10/15/22 07:50 Discharge Plan Discharge Patient Disposition: Admitted As Inpatient Clinical Impression: Acute hyperkalemia, Atrial fibrillation, chronic, CKD (chronic kidney disease) Condition: Stable Prescriptions: No Action Tresiba FlexTouch U-100 100 unit/mL (3 mL) insulin pen 42 unit SUBCUT BID albuterol sulfate 90 mcg/actuation HFA aerosol inhaler 2 puff inhalation Q6H PRN (Reason: Shortness Of Breath) insulin lispro [Humalog KwikPen Insulin] 100 unit/mL insulin pen 35 unit SUBCUT TID lisinopril 10 mg tablet 10 mg PO DAILY pentoxifylline 400 mg tablet extended release 400 mg PO TID Qty: 90 4RF Rx Instructions: must administer with a meal/food (DME) Metal Cut Off Saw Tender brace See Rx Instructions .Route .MEDSUPPLY Qty: 1 0RF Rx Instructions: As directed Stiolto Respimat 2.5-2.5 mcg/actuation mist 2 puff inhalation DAILY@07 Qty: 4 5RF clonidine HCl 0.1 mg tablet 0.1 mg PO Q8H simvastatin 10 mg tablet 10 mg PO DAILY@2200 metolazone 5 mg tablet 5 mg PO EVERY OTHER DAY Rx Instructions: take at 0700 allopurinol 100 mg tablet 100 mg PO DAILY@0700 isosorbide mononitrate 60 mg tablet extended release 24 hr 90 mg PO DAILY@0700 gabapentin 300 mg capsule 300 mg PO TID@,, polyethylene glycol 3350 17 gram/dose powder 17 g PO DAILY PRN (Reason: Constipation) potassium chloride 20 mEq tablet extended release 20 meq PO DAILY@0700 aspirin 325 mg Tablet 325 mg PO DAILY@0700 Hold Instructions: Resume on 09/09/19. 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
[2022-10-15 08:16] LABS: Alanine Aminotransferase 14 U/L (0-33); Albumin Level 3.7 g/dL (3.5-5.2); Alkaline Phosphatase 115 U/L (35-105); Anion Gap 17.1 (5-19); Aspartate Amino Transferase 12 U/L (0-32); Blood Urea Nitrogen 63 mg/dL (8-23); Calcium 9.6 mg/dL (8.5-10.5); Carbon Dioxide 18 mmol/L (22-29); Chloride 107 mmol/L (98-107); Globulin 3.8 g/dL (1.3-4.6); Glomerular Filtration Rate 21.2 mL/min (90-130); Glucose 207 mg/dL (65-115); Osmolality Calculated 302 mOsm/kg (285-295); Sodium 134 mmol/L (136-145); Total Bilirubin 0.2 mg/dL (0.15-1.2); Total Protein 7.5 g/dL (6.6-8.7)
[2022-10-15 08:17] LABS: Creatinine Clr Calc Pharmacy 32.3971
[2022-10-15 08:19] LABS: Potassium 8.1 mmol/L (3.5-5.1)
[2022-10-15] MEDS: sodium chloride 0.9% 1,000 ML 999 ML IV (08:21)
[2022-10-15] MEDS: sodium bicarbonate 8.4% 1 mEq/mL 50mL Syr 100 MEQ IVP (08:21)
[2022-10-15] MEDS: sodium polystyrene sulfonate 15 gm/60 mL Btl 30 GM PO (08:25)
[2022-10-15] MEDS: insulin regular-human 100 units/1 mL 10 UNIT IVP (08:26)
[2022-10-15] MEDS: calcium gluconate 0.9% NaCL 1 GM/50 ML PREMIX IV ×2 (08:34→09:03)
--- NOTE | 2022-10-15 08:36 | PC.NURSE ---
PATIENT WOUNDS TO LOWER LEFT FOOT, COVERED WITH WOUND CARE WRAP, UNWRAPPED IN PRESENCE OF DR PHILLIPS. PROVIDER VERBALIZED TO REPLACE WITH TELFA UNTIL PATIENT ARRIVES AT ICU.
[2022-10-15] MEDS: albuterol 2.5 mg/3 mL Neb 10 MG INHALATION (08:44)
--- NOTE | 2022-10-15 09:02 | PM.HP ---
Providers/Chief Complaint Admitting Physician: Augustine Tolentino MD Primary Care Provider: Jeanine Solares MD Chief Complaint: Abnormal Labs History of Present Illness Seema Del Rosario is a 66 year old female who was referred to the emergency department after abnormal lab with elevated potassium was noted. She reports she is felt okay lately. Last medication change was addition of lisinopril several months ago. No nausea, vomiting, chest discomfort. No fever, or shortness of breath. Denies any significant swelling. No recent antibiotics. Today was she was going to have an angiogram as she has some chronic ulcers on her left lower extremity thought to be secondary to peripheral vascular disease. Review of Systems General: Reports: 10 or more systems reviewed and unremarkable except in HPI and below Card: Denies: chest pain Resp: Denies: dyspnea, productive cough or non-productive cough GI: Denies: abdominal pain, nausea, vomiting, hematochezia or melena Medications/Allergies Home Medications Medication Instructions Recorded Confirmed Last Taken Type allopurinol 100 mg tablet 100 mg PO DAILY@69904/25/19 10/15/22 10/15/22 05:00 History aspirin 325 mg tablet 325 mg PO DAILY@69904/25/19 10/15/22 10/15/22 05:00 History clonidine HCl 0.1 mg tablet 0.1 mg PO Q8H 04/25/19 10/15/22 10/15/22 05:00 History gabapentin 300 mg capsule 300 mg PO TID@07,12,19 04/25/19 10/15/22 10/15/22 05:00 History isosorbide mononitrate 60 mg 90 mg PO DAILY@69904/25/19 10/15/22 10/15/22 05:00 History tablet,extended release 24 hr metolazone 5 mg tablet 5 mg PO EVERY OTHER DAY 04/25/19 10/15/22 10/14/22 06:00 History polyethylene glycol 3350 17 17 g PO DAILY PRN Constipation 04/25/19 10/15/22 Unknown History gram/dose oral powder potassium chloride 20 mEq 20 meq PO DAILY@69904/25/19 10/15/22 10/15/22 05:00 History tablet,extended release simvastatin 10 mg tablet 10 mg PO DAILY@219904/25/19 10/15/22 10/15/22 05:00 History amitriptyline 25 mg tablet 25 mg PO BEDTIME@2200 09/05/19 10/15/22 10/13/22 22:00 History furosemide 80 mg tablet 80 mg PO DAILY 09/05/19 10/15/22 10/14/22 06:00 History insulin degludec 100 unit/mL (3 42 unit SUBCUT BID 09/06/20 10/15/22 10/14/22 21:00 History mL) subcutaneous pen (Tresiba FlexTouch U-100 insulin) cholecalciferol (vitamin D3) 1,250 50,000 unit PO Q7D 12/06/20 10/15/22 10/09/22 05:00 History mcg (50,000 unit) capsule spironolactone 25 mg tablet 25 mg PO DAILY 12/06/20 10/15/22 10/15/22 05:00 History insulin lispro 100 unit/mL 35 unit SUBCUT TID 07/30/21 10/15/22 10/14/22 20:00 History subcutaneous pen (Humalog KwikPen (U-100) Insulin) tiotropium 2.5 mcg-olodaterol 2.5 2 puff inhalation DAILY@07 #4 grams 06/16/22 10/15/22 10/15/22 05:00 Rx mcg/actuation mist for inhalation (Stiolto Respimat) Engine Lathe Operator brace #1 ea 08/18/22 10/15/22 Unknown Rx tramadol 50 mg tablet 50 mg PO BID PRN Pain 09/02/22 10/15/22 10/14/22 22:00 History pentoxifylline 400 mg 400 mg PO TID #90 tabs 09/17/22 10/15/22 Unknown Rx tablet,extended release lisinopril 10 mg tablet 10 mg PO DAILY 10/01/22 10/15/22 10/15/22 05:00 History duloxetine 30 mg capsule,delayed 30 mg PO DAILY 10/15/22 10/15/22 Unknown History release pantoprazole 40 mg tablet,delayed 40 mg PO DAILY 10/15/22 10/15/22 Unknown History release Allergies Allergy/AdvReac Type Severity Reaction Status Date / Time anastrozole Allergy ALGY-Joint Verified 10/15/22 07:37 Pain PFSH Acute PFSH: Medical History (Updated 10/15/22 @ 09:09 by Augustnie Tolentino MD) Anemia Atherosclerosis of coronary artery of [place] heart without angina pectoris Atrial fibrillation, chronic Chronic obstructive pulmonary disease Chronic venous insufficiency CKD (chronic kidney disease) Diabetes Diastolic heart failure History of breast cancer Hypertension Leg pain Lower extremity edema Peripheral arterial disease Screen for colon cancer Surgical History History of carpal tunnel release of both wrists History of colonoscopy with polypectomy (~08/2019[place] [facility] [place] History of coronary angioplasty with insertion of stent History of coronary artery balloon dilation History of esophagogastroduodenoscopy (EGD) (~08/2019) [place] [facility] [place] of lumpectomy Family History Father CAD (coronary artery disease), Onset Age: 50 Cancer Diabetes Hyperlipidemia Hypertension Lung disease Denies family history of Clotting disorder Dementia Psychiatric illness Chronic kidney disease (CKD) Suicide Anesthesia complication Bleeding disorder Stroke Social History Smoking and tobacco status: former smoker Quit status (tobacco): has quit using tobacco Year quit tobacco: 2016 - 2PPD x 40 Years Alcohol intake: never Counseling given: No Substance/Drug Use: never Counseling given: No Lives independently: Yes Household members: spouse Marital status: Current occupational status: retired Do you think of yourself as: Straight/Heterosexual Current gender identity: Female Vitals/I&O/Wt Last Vital Signs Temp 98.4 F 10/15/22 07:33 Pulse 74 10/15/22 08:49 Resp 18 10/15/22 08:49 BP 158/84 10/15/22 08:45 Pulse Ox 96 10/15/22 08:49 O2 Del Method Room Air 10/15/22 08:49 Weight last 48 hrs Weight 124.284 kg Physical Exam Narrative: General exam is a white female, no distress HEENT: Atraumatic and normocephalic. Oropharynx clear Neck is supple no lymphadenopathy thyromegaly Cardiovascular regular rate and rhythm, 2/6 systolic murmur Lungs diminished breath sounds bilaterally but no wheezes or crackles Abdomen is soft with positive bowel sounds. No obvious organomegaly exams deferred Extremities no cyanosis clubbing. Trace edema is present bilaterally. Data 10/15/22 07:50 10/15/22 07:50 Other Labs: LFTs are normal with exception of alk phos of 115 Albumin and calcium are normal Magnesium is normal CTA with aorta runoff 09/15/2022 demonstrated a 6 cm right adrenal mass, increased in size from 4.6 cm in 2020 as well as peripheral vascular disease. EKG demonstrates sinus rhythm, rate of around 65, borderline left axis deviation, right bundle branch block. Bundle branch block has been noted previously. A&P Assessment and plan (1) Acute hyperkalemia: Patient with severe acute hyperkalemia Multiple factors could be contributing. These are diet, oral potassium, chronic kidney disease, Aldactone, lisinopril. 2 g calcium gluconate in the emergency department IV Insulin and glucose, Kayexalate, DuoNeb given Repeat potassium in 2 hours, with further evaluation with repeat potassium that will be done serially depending on previous level Hydrate cautiously Hold diuretics currently (2) Acute kidney injury: Acute kidney injury is present, superimposed on chronic kidney disease Hold medication as above BMP daily Consider ultrasound if renal function does not improve (3) Chronic obstructive pulmonary disease: DuoNeb every 6 hours Budesonide twice daily No evidence of exacerbation currently. (4) Diabetes: Sliding scale insulin Continue long-acting insulin 20 units twice daily, lower dose secondary to kidney dysfunction (5) Atrial fibrillation, chronic: Currently in sinus rhythm, continue to monitor (6) Diastolic heart failure: Appears compensated currently Secondary to acute kidney injury hold diuretics currently, restart when needed Qualifiers: Heart failure chronicity: chronic Qualified Code(s): I50.32 - Chronic diastolic (congestive) heart failure (7) Hypertension: Monitor blood pressure closely Hydralazine as needed Consider addition of amlodipine if blood pressure remains high as substitution for lisinopril at least in the short-term. Plan Left ankle ulcer. Continue current wound care orders. Hydrofera Blue Other medical problems as outlined in past medical history Full code Heparin for DVT prophylaxis Attestations Medical Necessity Statement*: Will require greater than 2 midnight stay for severe acute hyperkalemia and acute kidney injury Critical Care Time: The high probability of a clinically significant, sudden or life threatening deterioration of the patient's [renal, electrolyte] system(s) required my full and direct attention, intervention and personal management. The critical care time is as shown. This time is in addition to time spent performing any reported procedures but includes the following: [x] Data and vital sign review and interpretation [x] Patient assessment, examination and intervention [x] Documentation [x] Medication orders and management Critical Care Time (min): 32 Coding Level of Care Code Critical Care >/= 30 minutes Critical care time (in minutes): 32 The high probability of a clinically significant, sudden or life threatening deterioration, as referenced in this documentation, required my full and direct attention, intervention and personal management. The critical care time shown is in addition to time spent performing any reported separately billable procedures and includes the following: [x] Data and vital sign review and interpretation [x] Patient assessment, examination and intervention [x] Medication orders and management [x] Patient/Family updates as able [x] Care Coordination and Documentation. Diagnoses Acute hyperkalemia E87.5 Acute kidney injury N17.9 Chronic obstructive pulmonary disease J44.9 Diabetes E11.9 Atrial fibrillation, chronic I48.20 Diastolic heart failure I50.32 Heart failure chronicity: chronic Hypertension I10
[2022-10-15] MEDS: sodium chloride 0.9% 1,000 ML 100 ML IV ×2 (10:12→19:49)
[2022-10-15] MEDS: heparin 5,000 unit/mL INJ 1 mL 5000 UNIT SUBCUT ×2 (10:13→20:49)
[2022-10-15] MEDS: cloNIDine 0.1 mg Tablet PO ×2 (10:30→17:26)
--- NOTE | 2022-10-15 10:56 | PC.NURSE ---
Received patient at 0930 from ER staff. HR: 90, BP: 177/68, SPO2: 90. Temp: 98.9. Patient is alert to person, place, time, and situation. Patient educated on treatment plan and upcoming lab tests. After initial assessment family was brought to bedside.
[2022-10-15 11:45] LABS: Anion Gap 16.7 (5-19); Blood Urea Nitrogen 61 mg/dL (8-23); Calcium 9.8 mg/dL (8.5-10.5); Carbon Dioxide 22 mmol/L (22-29); Chloride 110 mmol/L (98-107); Glomerular Filtration Rate 28.2 mL/min (90-130); Glucose 208 mg/dL (65-115); Osmolality Calculated 315 mOsm/kg (285-295); Sodium 141 mmol/L (136-145)
[2022-10-15 11:46] LABS: Potassium 7.7 mmol/L (3.5-5.1)
[2022-10-15] MEDS: insulin lispro 100 unit/1 mL SUBCUT ×3 (11:59→20:49)
[2022-10-15] MEDS: dextrose 50% syringe 50 mL IVP (12:48)
[2022-10-15] MEDS: insulin regular-human 100 units/1 mL 10 UNIT IV (12:51)
[2022-10-15] MEDS: sodium polystyrene sulfonate 15 gm/60 mL Btl PO (12:52)
[2022-10-15] MEDS: hyDRALAzine 20 mg/mL INJ 1 mL 10 MG IVP ×2 (13:36→18:50)
[2022-10-15] MEDS: ipratropium-albuterol 3 mL Neb INHALATION ×2 (14:06→19:46)
[2022-10-15] MEDS: gabapentin 100 mg Capsule PO ×2 (14:51→20:49)
[2022-10-15 16:29] LABS: Anion Gap 17.9 (5-19); Blood Urea Nitrogen 53 mg/dL (8-23); Calcium 9.1 mg/dL (8.5-10.5); Carbon Dioxide 19 mmol/L (22-29); Chloride 108 mmol/L (98-107); Glomerular Filtration Rate 30.1 mL/min (90-130); Glucose 206 mg/dL (65-115); Osmolality Calculated 306 mOsm/kg (285-295); Sodium 138 mmol/L (136-145)
[2022-10-15 16:48] LABS: Potassium 6.9 mmol/L (3.5-5.1)
[2022-10-15 17:11] LABS: Glucose Point of Care 199 mg/dL (70-110)
[2022-10-15 17:11] LABS: Glucose Point of Care 204 mg/dL (70-110)
[2022-10-15] MEDS: insulin glargine 100 units/1 mL 20 UNIT SUBCUT (17:27)
--- NOTE | 2022-10-15 17:37 | PC.NURSE ---
Shift SUmmary: Uneventful shift. Rested in bed throughout the day, but was up frequently to use the bathroom. Potassium went down from a high of 8.1 to 6.9, another BMP is scheduled for 9pm.
[2022-10-15] MEDS: budesonide 0.5 mg/2 mL Neb INHALATION (19:46)
[2022-10-15 20:47] LABS: Glucose Point of Care 192 mg/dL (70-110)
[2022-10-15] MEDS: atorvastatin 40 mg Tablet 20 MG PO (20:49)
[2022-10-15] MEDS: amitriptyline 25 mg Tablet PO (20:49)
[2022-10-15 22:03] LABS: Anion Gap 16.9 (5-19); Blood Urea Nitrogen 49 mg/dL (8-23); Calcium 8.9 mg/dL (8.5-10.5); Carbon Dioxide 19 mmol/L (22-29); Chloride 110 mmol/L (98-107); Glomerular Filtration Rate 32.2 mL/min (90-130); Glucose 181 mg/dL (65-115); Osmolality Calculated 308 mOsm/kg (285-295); Potassium 5.9 mmol/L (3.5-5.1); Sodium 140 mmol/L (136-145)
[2022-10-16] VITALS (26 sets, daily range): BP systolic 138–178; BP diastolic 56–84; PULSE 74–98; RESP 15–26; TEMP 36.8–36.9; O2SAT 93–98
[2022-10-16] MEDS: cloNIDine 0.1 mg Tablet PO ×3 (01:02→17:58)
[2022-10-16 01:26] LABS: Add Urine Culture? No; Add Urine Microscopic? YES; Bacteria Urine 1+ /hpf; Bilirubin Urine Neg (Negative); Blood Urine Neg (Negative); Glucose Urine UA Norm (Normal); Ketones Urine Negative (Negative); Leukocyte Esterase Urine 1+ (Negative); Nitrate Urine Negative (Negative); Protein Urine Neg (Negative); Specific Gravity, Urine 1.015 (1.005-1.030); Squamous Epithelial Cell Urine 0-4 /hpf (0-5); Urine Appearance Clear (CLEAR); Urine Color Yellow (Yellow); Urobilinogen Urine Neg (Negative); WBC Urine 0-4 /hpf (0-5); pH Urine 6 (5-7)
[2022-10-16] MEDS: ipratropium-albuterol 3 mL Neb INHALATION ×4 (01:42→20:28)
[2022-10-16] MEDS: sodium chloride 0.9% 1,000 ML 100 ML IV (05:06)
[2022-10-16 05:54] LABS: Basophils # 0.1 10^3/uL (0.0-0.1); Basophils % 0.6 %; Eosinophils # 0.3 10^3/uL (0.0-0.8); Eosinophils % 3.1 %; Hematocrit 32.7 % (36-47); Lymphocytes # 1.7 10^3/uL (0.8-4.8); Lymphocytes % 17.9 %; Mean Corpuscular HGB Conc 30.6 g/dL (30-55); Mean Corpuscular Hemoglobin 29.6 pg (27-33); Mean Corpuscular Volume 96.7 fl (85-98); Mean Platelet Volume 9.7 fL (7.4-10.4); Monocytes # 0.6 10^3/uL (0.2-0.9); Monocytes % 6.3 %; Neutrophils # 6.91 10^3/uL (1.8-7.7); Neutrophils % 71.5 %; Nucleated Red Blood Cells % 0 %; Platelet Count 268 10^3/cmm (157-399); Red Blood Count 3.38 10^6/uL (3.85-5.65); Red Cell Distribution Width 15.7 % (12.1-15.1); White Blood Count 9.67 10^3/uL (3.29-11.43)
[2022-10-16] MEDS: isosorbide mononitrate ER 60 mg Tablet 90 MG PO (05:59)
[2022-10-16] MEDS: aspirin 325 mg Tablet PO (05:59)
[2022-10-16] MEDS: allopurinol 100 mg Tablet PO (05:59)
[2022-10-16 06:13] LABS: Alanine Aminotransferase 14 U/L (0-33); Albumin Level 3.5 g/dL (3.5-5.2); Alkaline Phosphatase 102 U/L (35-105); Aspartate Amino Transferase 16 U/L (0-32); Blood Urea Nitrogen 45 mg/dL (8-23); Calcium 9.2 mg/dL (8.5-10.5); Carbon Dioxide 20 mmol/L (22-29); Chloride 111 mmol/L (98-107); Globulin 3.6 g/dL (1.3-4.6); Glomerular Filtration Rate 37.6 mL/min (90-130); Glucose 166 mg/dL (65-115); Magnesium 1.8 mg/dL (1.7-2.3); Osmolality Calculated 303 mOsm/kg (285-295); Sodium 139 mmol/L (136-145); Total Bilirubin 0.3 mg/dL (0.15-1.2); Total Protein 7.1 g/dL (6.6-8.7)
[2022-10-16 06:17] LABS: Anion Gap 14.4 (5-19); Potassium 6.4 mmol/L (3.5-5.1)
[2022-10-16 06:49] LABS: Glucose Point of Care 171 mg/dL (70-110)
[2022-10-16] MEDS: budesonide 0.5 mg/2 mL Neb INHALATION ×2 (07:31→20:28)
--- NOTE | 2022-10-16 07:39 | PM.PN ---
Subjective Subjective: Seema reports that she she feels better than yesterday. No specific complaints today. States she feels short of breath, but this is normal for her. Medications: Reviewed: Yes Vitals/I&O/Wt Last Vital Signs Temp 98.2 F 10/16/22 05:56 Pulse 81 10/16/22 07:31 Resp 18 10/16/22 07:31 BP 161/56 10/16/22 05:56 Pulse Ox 96 10/16/22 07:31 O2 Del Method Room Air 10/16/22 07:31 10/15/22 10/16/22 10/16/22 22:59 06:59 14:59 Intake Total 1461.667 / 2961.667 928.333 / 3890.000 Output Total 500 / 702 1200 / 1902 Balance 961.667 / 2259.667 -271.667 / 1988.000 Weight last 48 hrs Weight 125.963 kg Weight 124.284 kg Physical Exam Narrative: General exam is a white female, no distress Neck is supple no lymphadenopathy thyromegaly Cardiovascular regular rate and rhythm, 2/6 systolic murmur Lungs diminished breath sounds bilaterally but no wheezes or crackles Abdomen is soft with positive bowel sounds. No obvious organomegaly Extremities no cyanosis clubbing. Trace edema is present bilaterally. Data 10/16/22 05:31 10/16/22 05:31 A&P Assessment and plan (1) Acute hyperkalemia: Patient with severe acute hyperkalemia Multiple factors could be contributing. These are diet, oral potassium, chronic kidney disease, Aldactone, lisinopril. 2 g calcium gluconate in the emergency department IV on presentation Received several doses of insulin and glucose, DuoNeb, Kayexalate x2 Potassium had decreased to 5.9 but is 6.4 this morning. Repeat Kayexalate dose 30 g p.o. x1 Initiate Lasix 40 mg every morning BMP around 12:30 PM Can go ahead and discontinue IV fluids Transfer to floor Repeat CBC and BMP tomorrow (2) Acute kidney injury: Acute kidney injury is present, superimposed on chronic kidney disease Hold medication as above BMP daily Renal function improving (3) Chronic obstructive pulmonary disease: DuoNeb every 6 hours Budesonide twice daily No evidence of exacerbation currently. (4) Diabetes: Continue scale insulin Continue long-acting insulin 20 units twice daily, lower dose secondary to kidney dysfunction (5) Atrial fibrillation, chronic: Currently in sinus rhythm, continue to monitor (6) Diastolic heart failure: Appears compensated currently Restart Lasix today 40 mg daily Qualifiers: Heart failure chronicity: chronic Qualified Code(s): I50.32 - Chronic diastolic (congestive) heart failure (7) Hypertension: Monitor blood pressure closely Hydralazine as needed Add amlodipine 5 mg daily Plan Left ankle ulcer. Continue current wound care orders. Hydrofera Blue Other medical problems as outlined in past medical history Full code Heparin for DVT prophylaxis Rebound and potassium, for which action is warranted but can transfer out of unit. Continue telemetry. Attestations Medical Necessity Statement*: Needs continued hospital stay for treatment of persistent hyperkalemia Diagnoses Acute hyperkalemia E87.5 Acute kidney injury N17.9 Chronic obstructive pulmonary disease J44.9 Diabetes E11.9 Atrial fibrillation, chronic I48.20 Diastolic heart failure I50.32 Heart failure chronicity: chronic Hypertension I10 Time Spent (min) 22
[2022-10-16] MEDS: sodium polystyrene sulfonate 15 gm/60 mL Btl 30 GM PO (08:11)
[2022-10-16] MEDS: gabapentin 100 mg Capsule PO ×3 (08:11→20:37)
[2022-10-16] MEDS: duloxetine 30 mg Capsule PO (08:11)
[2022-10-16] MEDS: FUROsemide 40 mg Tablet PO ×2 (08:11→14:29)
[2022-10-16] MEDS: amlodipine 5 mg Tablet PO (08:11)
[2022-10-16] MEDS: pantoprazole DR 40 mg Tablet PO (08:11)
[2022-10-16] MEDS: heparin 5,000 unit/mL INJ 1 mL 5000 UNIT SUBCUT ×2 (08:12→20:37)
[2022-10-16] MEDS: insulin glargine 100 units/1 mL 20 UNIT SUBCUT ×2 (08:12→17:58)
[2022-10-16] MEDS: insulin lispro 100 unit/1 mL SUBCUT ×4 (08:13→21:19)
[2022-10-16 12:07] LABS: Glucose Point of Care 227 mg/dL (70-110)
[2022-10-16 13:39] LABS: Anion Gap 16.7 (5-19); Blood Urea Nitrogen 41 mg/dL (8-23); Calcium 9.5 mg/dL (8.5-10.5); Carbon Dioxide 20 mmol/L (22-29); Chloride 105 mmol/L (98-107); Glomerular Filtration Rate 37.6 mL/min (90-130); Glucose 241 mg/dL (65-115); Osmolality Calculated 300 mOsm/kg (285-295); Potassium 5.7 mmol/L (3.5-5.1); Sodium 136 mmol/L (136-145)
--- NOTE | 2022-10-16 14:23 | PC.NURSE ---
Patient ambulated to front entrance accompanied by this nurse. All belongings with patient. Patient wishes to wait outside for his ride, [employer], that was set up by aids social worker. Patient has no complaints, AAOx4.
[2022-10-16] MEDS: sodium polystyrene sulfonate 15 gm/60 mL Btl PO (14:29)
[2022-10-16] MEDS: hyDRALAzine 20 mg/mL INJ 1 mL 10 MG IVP ×2 (16:25→20:50)
--- NOTE | 2022-10-16 16:58 | PC.NURSE ---
Report called to Nicole. Patient and belongings taken to room 257-1. Family at bedside.
[2022-10-16 17:54] LABS: Glucose Point of Care 188 mg/dL (70-110)
[2022-10-16 21:10] LABS: Glucose Point of Care 164 mg/dL (70-110)
[2022-10-16] MEDS: amitriptyline 25 mg Tablet PO (21:18)
[2022-10-16] MEDS: atorvastatin 40 mg Tablet 20 MG PO (21:18)
[2022-10-17 01:16] VITALS: BP 162/71
[2022-10-17] MEDS: cloNIDine 0.1 mg Tablet PO (01:16)
[2022-10-17 03:19] VITALS: BP 170/84; PULSE 89; RESP 17; TEMP 36.6; O2SAT 96
[2022-10-17] MEDS: hyDRALAzine 20 mg/mL INJ 1 mL 10 MG IVP (03:33)
[2022-10-17 04:53] LABS: Basophils # 0.1 10^3/uL (0.0-0.1); Basophils % 0.7 %; Eosinophils # 0.5 10^3/uL (0.0-0.8); Eosinophils % 4.4 %; Hematocrit 36.7 % (36-47); Lymphocytes # 1.8 10^3/uL (0.8-4.8); Lymphocytes % 16.3 %; Mean Corpuscular HGB Conc 31.1 g/dL (30-55); Mean Corpuscular Hemoglobin 29.8 pg (27-33); Mean Corpuscular Volume 95.8 fl (85-98); Mean Platelet Volume 9.5 fL (7.4-10.4); Monocytes # 0.7 10^3/uL (0.2-0.9); Monocytes % 6.7 %; Neutrophils # 7.79 10^3/uL (1.8-7.7); Neutrophils % 71.1 %; Nucleated Red Blood Cells % 0 %; Platelet Count 308 10^3/cmm (157-399); Red Blood Count 3.83 10^6/uL (3.85-5.65); Red Cell Distribution Width 15.7 % (12.1-15.1); White Blood Count 10.95 10^3/uL (3.29-11.43)
[2022-10-17 05:14] LABS: Anion Gap 18.9 (5-19); Blood Urea Nitrogen 35 mg/dL (8-23); Calcium 9.4 mg/dL (8.5-10.5); Carbon Dioxide 21 mmol/L (22-29); Chloride 104 mmol/L (98-107); Glucose 148 mg/dL (65-115); Magnesium 1.7 mg/dL (1.7-2.3); Osmolality Calculated 299 mOsm/kg (285-295); Potassium 4.9 mmol/L (3.5-5.1); Sodium 139 mmol/L (136-145)
[2022-10-17 05:54] VITALS: PULSE 81
[2022-10-17] MEDS: isosorbide mononitrate ER 60 mg Tablet 90 MG PO (06:10)
[2022-10-17] MEDS: allopurinol 100 mg Tablet PO (06:11)
[2022-10-17] MEDS: aspirin 325 mg Tablet PO (06:11)
[2022-10-17 06:34] LABS: Glucose Point of Care 155 mg/dL (70-110)
[2022-10-17 07:30] VITALS: BP 151/73; PULSE 91; RESP 18; TEMP 36.4; O2SAT 95
--- NOTE | 2022-10-17 08:10 | P.DS_ITS ---
Discharge Providers Date of Admission: 10/15/22 08:38 Date of Discharge: October 17, 2022 Attending Provider at Admission: Augustine Tolentino MD Attending Provider at Discharge: Augustine Tolentino MD Primary Care Provider: Jeanine Solares MD Diagnoses at Discharge Discharge Diagnosis (1) Acute hyperkalemia: Status: Acute (2) Acute kidney injury: Status: Acute (3) Chronic obstructive pulmonary disease: Status: Acute (4) Diabetes: Status: Acute (5) Atrial fibrillation, chronic: Status: Acute (6) Diastolic heart failure: Status: Acute Qualifiers: Heart failure chronicity: chronic Qualified Code(s): I50.32 - Chronic diastolic (congestive) heart failure (7) Hypertension: Status: Acute Reason for Visit Reason for Visit: Abnormal Labs Hospital Course Hospital Course Seema is a 66-year-old white female with chronic kidney disease, diabetes, and multiple other medical conditions including peripheral vascular disease with ulcers on her left foot who presented to the hospital for angiogram. From my understanding a markedly elevated potassium was noted and she was directed to the emergency department. In the emergency department potassium was over 8. She was given appropriate treatment with calcium, insulin and glucose, nebulized treatments, Kayexalate, bicarb. She was transitioned to the ICU. She was hydrated, and many of her home medications were held. These included potassium, Aldactone, lisinopril, Zaroxolyn, Lasix. Over her hospital stay she got repeat treatment with Kayexalate for potassium several times. By October 17 her kidney function was markedly improved with a creatinine of 1.3. Potassium had come down to 4.9. He has not received any Kayexalate since the previous day. At this point with improvement in kidney function, and a normal potassium it was thought she could go home with close follow-up with her primary care provider. I discussed with her the need to get a potassium check as an outpatient next week, as there is a potential for her potassium to go low as her Lasix was reinitiated. She and her family were able to ask questions, and agreed with the plan. Physical Exam Narrative: General exam no distress Neck is supple Cardiovascular regular rate and rhythm Lungs clear Abdomen is soft Extremities trace edema, no cyanosis or clubbing. Ulcers left ankle unchanged Discharge Data Studies Completed and Pending Laboratory Results WBC 10.95 10^3/uL (3.29-11.43) 10/17/22 04:36 RBC 3.83 10^6/uL (3.85-5.65) L 10/17/22 04:36 Hgb 11.40 g/dL (11.27-16.99) 10/17/22 04:36 Hct 36.7 % (36-47) 10/17/22 04:36 MCV 95.8 fl (85-98) 10/17/22 04:36 MCH 29.8 pg (27-33) 10/17/22 04:36 MCHC 31.1 g/dL (30-55) 10/17/22 04:36 RDW 15.7 % (12.1-15.1) H 10/17/22 04:36 Plt Count 308 10^3/cmm (157-399) 10/17/22 04:36 MPV 9.5 fL (7.4-10.4) 10/17/22 04:36 Neut % (Auto) 71.1 % 10/17/22 04:36 Lymph % (Auto) 16.3 % 10/17/22 04:36 [place] % (Auto) 6.7 % 10/17/22 04:36 Eos % (Auto) 4.4 % 10/17/22 04:36 Baso % (Auto) 0.7 % 10/17/22 04:36 Neut # (Auto) 7.79 10^3/uL (1.8-7.7) H 10/17/22 04:36 Lymph # (Auto) 1.8 10^3/uL (0.8-4.8) 10/17/22 04:36 [place] # (Auto) 0.7 10^3/uL (0.2-0.9) 10/17/22 04:36 Eos # (Auto) 0.5 10^3/uL (0.0-0.8) 10/17/22 04:36 Baso # (Auto) 0.1 10^3/uL (0.0-0.1) 10/17/22 04:36 Nucleated RBC % (auto) 0 % 10/17/22 04:36 Nucleated RBCs # 0.0 /100WBC 10/17/22 04:36 Sodium 139 mmol/L (136-145) 10/17/22 04:36 Potassium 4.9 mmol/L (3.5-5.1) 10/17/22 04:36 Chloride 104 mmol/L (98-107) 10/17/22 04:36 Carbon Dioxide 21 mmol/L (22-29) L 10/17/22 04:36 Anion Gap 18.9 (5-19) 10/17/22 04:36 BUN 35 mg/dL (8-23) H 10/17/22 04:36 Creatinine 1.3 mg/dL (0.5-0.9) H 10/17/22 04:36 GFR Calculation 41.0 mL/min (90-130) L 10/17/22 04:36 Glucose 148 mg/dL (65-115) H 10/17/22 04:36 POC Glucose 155 mg/dL (70-110) H 10/17/22 06:24 Calculated Osmolality 299 mOsm/kg (285-295) H 10/17/22 04:36 Calcium 9.4 mg/dL (8.5-10.5) 10/17/22 04:36 Magnesium 1.7 mg/dL (1.7-2.3) 10/17/22 04:36 Total Bilirubin 0.3 mg/dL (0.15-1.2) 10/16/22 05:31 AST 16 U/L (0-32) 10/16/22 05:31 ALT 14 U/L (0-33) 10/16/22 05:31 Alkaline Phosphatase 102 U/L (35-105) 10/16/22 05:31 Total Protein 7.1 g/dL (6.6-8.7) 10/16/22 05:31 Albumin 3.5 g/dL (3.5-5.2) 10/16/22 05:31 Globulin 3.6 g/dL (1.3-4.6) 10/16/22 05:31 Urine Color Yellow (Yellow) 10/16/22 00:33 Urine Appearance Clear (CLEAR) 10/16/22 00:33 Urine pH 6 (5-7) 10/16/22 00:33 Ur Specific [place] 1.015 (1.005-1.030) 10/16/22 00:33 Urine Protein Neg (Negative) 10/16/22 00:33 Urine Glucose (UA) Norm (Normal) 10/16/22 00:33 Urine Ketones Negative (Negative) 10/16/22 00:33 Urine Blood Neg (Negative) 10/16/22 00:33 Urine Nitrate Negative (Negative) 10/16/22 00:33 Urine Bilirubin Neg (Negative) 10/16/22 00:33 Urine Urobilinogen Neg mg/dL (Negative) 10/16/22 00:33 Ur Leukocyte Esterase 1+ (Negative) H 10/16/22 00:33 Urine RBC None /hpf (0-2) 10/16/22 00:33 Urine WBC 0-4 /hpf (0-5) H 10/16/22 00:33 Ur Squamous Epith Cells 0-4 /hpf (0-5) H 10/16/22 00:33 Amorphous Sediment Not Reportable 10/16/22 00:33 Urine Bacteria 1+ /hpf (NONE) H 10/16/22 00:33 Vitals Last Vital Signs Temp 97.5 F L 10/17/22 07:30 Pulse 91 10/17/22 07:30 Resp 18 10/17/22 07:30 BP 151/73 10/17/22 07:30 Pulse Ox 95 10/17/22 07:30 O2 Del Method Room Air 10/17/22 07:30 Discharge Plan Discharge Patient Disposition: Home Condition: Stable Prescriptions: New amlodipine 5 mg Tablet 5 mg PO DAILY Qty: 30 0RF furosemide [Lasix] 40 mg tablet 40 mg PO BID Qty: 60 0RF Continued Tresiba FlexTouch U-100 100 unit/mL (3 mL) insulin pen 42 unit SUBCUT BID insulin lispro [Humalog KwikPen Insulin] 100 unit/mL insulin pen 35 unit SUBCUT TID pentoxifylline 400 mg tablet extended release 400 mg PO TID Qty: 90 4RF Rx Instructions: must administer with a meal/food (DME) Ict Development Manager brace See Rx Instructions .Route .MEDSUPPLY Qty: 1 0RF Rx Instructions: As directed Stiolto Respimat 2.5-2.5 mcg/actuation mist 2 puff inhalation DAILY@07 Qty: 4 5RF clonidine HCl 0.1 mg tablet 0.1 mg PO Q8H simvastatin 10 mg tablet 10 mg PO DAILY@2200 allopurinol 100 mg tablet 100 mg PO DAILY@0700 isosorbide mononitrate 60 mg tablet extended release 24 hr 90 mg PO DAILY@0700 gabapentin 300 mg capsule 300 mg PO TID@ polyethylene glycol 3350 17 gram/dose powder 17 g PO DAILY PRN (Reason: Constipation) aspirin 325 mg Tablet 325 mg PO DAILY@0700 Hold Instructions: Resume on 09/09/19. cholecalciferol (vitamin D3) 1,250 mcg (50,000 unit) capsule 50,000 unit PO Q7D Rx Instructions: ON amitriptyline 25 mg tablet 25 mg PO BEDTIME@2200 pantoprazole 40 mg tablet,delayed release (DR/EC) 40 mg PO DAILY duloxetine 30 mg capsule,delayed release(DR/EC) 30 mg PO DAILY tramadol 50 mg tablet 50 mg PO BID PRN (Reason: Pain) Discontinued lisinopril 10 mg tablet 10 mg PO DAILY metolazone 5 mg tablet 5 mg PO EVERY OTHER DAY Rx Instructions: take at 0700 potassium chloride 20 mEq tablet extended release 20 meq PO DAILY@0700 spironolactone 25 mg tablet 25 mg PO DAILY furosemide 80 mg tablet 80 mg PO DAILY Discharge Orders: Discharge Order (Routine); Ordered 10/17/22 Ordered By: Augustine Tolentino Referrals: Jeanine Solares MD [Primary Care Provider] - 4-7 days (BMP on followup) Discharge Diet: Cardiac and Diabetic Discharge Activity: Increase activity as tolerated Patient Instructions: Furosemide (By mouth), Amlodipine (By mouth), Acute Kidney Injury (GEN), Opioid Safety, Pain Management Activity Restrictions/Additional Instructions: Take all medicine as prescribed. Follow-up with your primary care provider on Thursday, with a BMP on follow-up. Note the changes in your medication, change of Lasix to 40 mg twice daily. Multiple medications were discontinued including Aldactone, lisinopril, potassium, Zaroxolyn. Dr. Solares will decide when and if to rehab these medications. Note that you were put on Norvasc 5 mg daily to substitute for some of these medications to help your elevated blood pressure. Return for any concerns Discharge Attestations Time Spent in Discharge Care*: greater than 30 min Quality Metrics Clinical Quality Measures [ No reported AMI, CVA or VTE this stay] Coding Level of Care Code 26671 Total time (in minutes) for Discharge: 35 Diagnoses Acute hyperkalemia E87.5 Acute kidney injury N17.9 Chronic obstructive pulmonary disease J44.9 Diabetes E11.9 Atrial fibrillation, chronic I48.20 Diastolic heart failure I50.32 Heart failure chronicity: chronic Hypertension I10
[2022-10-17] MEDS: budesonide 0.5 mg/2 mL Neb INHALATION (08:21)
[2022-10-17] MEDS: ipratropium-albuterol 3 mL Neb INHALATION (08:21)
[2022-10-17 08:22] VITALS: PULSE 95; RESP 18; O2SAT 97
[2022-10-17] MEDS: insulin lispro 100 unit/1 mL SUBCUT (09:30)
[2022-10-17] MEDS: amlodipine 5 mg Tablet PO (09:31)
[2022-10-17] MEDS: pantoprazole DR 40 mg Tablet PO (09:31)
[2022-10-17] MEDS: gabapentin 100 mg Capsule PO (09:31)
[2022-10-17] MEDS: heparin 5,000 unit/mL INJ 1 mL 5000 UNIT SUBCUT (09:31)
[2022-10-17] MEDS: duloxetine 30 mg Capsule PO (09:31)
[2022-10-17] MEDS: FUROsemide 40 mg Tablet PO (09:31)
[2022-10-17] MEDS: insulin glargine 100 units/1 mL 20 UNIT SUBCUT (09:34)
[2022-10-17 10:10] VITALS: PULSE 95; RESP 18; O2SAT 97
== END 2022-10-17 09:58 | disposition home or self-care (01) | DRG 641 ==
LOC: ER 08:33 → ICU 08:38 → MEDSURG 10-16 17:18
PROVIDERS: Admitting Provider Internal Medicine; Emergency Provider Family Medicine; PCP Internal Medicine; Visit Provider Internal Medicine
DX: E87.5 Hyperkalemia (principal); N17.9 Acute kidney failure, unspecified; I13.0 Hypertensive heart and chronic kidney disease with heart failure and stage 1 through stage 4 chronic kidney disease, or unspecified chronic kidney disease; I50.32 Chronic diastolic (congestive) heart failure; L97.921 Non-pressure chronic ulcer of unspecified part of left lower leg limited to breakdown of skin; I48.20 Chronic atrial fibrillation, unspecified; E11.22 Type 2 diabetes mellitus with diabetic chronic kidney disease; N18.9 Chronic kidney disease, unspecified; E11.51 Type 2 diabetes mellitus with diabetic peripheral angiopathy without gangrene; E11.622 Type 2 diabetes mellitus with other skin ulcer; Z79.4 Long term (current) use of insulin; Z79.891 Long term (current) use of opiate analgesic; D63.1 Anemia in chronic kidney disease; I25.10 Atherosclerotic heart disease of native coronary artery without angina pectoris; Z95.5 Presence of coronary angioplasty implant and graft; J44.9 Chronic obstructive pulmonary disease, unspecified; Z85.3 Personal history of malignant neoplasm of breast; Z87.891 Personal history of nicotine dependence
CPT/HCPCS: 36415; 36416; 80048; 80053; 81001; 82962; 83735; 85025; 85610; 93005; 94640; 94660; 96360; 96365; 96372; 96375; 99285; J0360; J0610; J1644; J1815; J7030; J7613; J7626; Q0163

== ENCOUNTER → 2022-10-24 13:49 | Outpatient (BNVA) | payer MEDICARE, MEDICAID, SELFPAY | PROVIDERS: PCP Internal Medicine; Visit Provider Thoracic Surgery (Cardiothoracic Vascular Surgery) | DX: E11.52 Type 2 diabetes mellitus with diabetic peripheral angiopathy with gangrene (principal); L97.322 Non-pressure chronic ulcer of left ankle with fat layer exposed; L97.822 Non-pressure chronic ulcer of other part of left lower leg with fat layer exposed; Z09 Encounter for follow-up examination after completed treatment for conditions other than malignant neoplasm | CPT/HCPCS: 97597; A6210 ==

== ENCOUNTER → 2022-10-31 13:50 | Outpatient (BNVA) | payer MEDICARE, MEDICAID, SELFPAY | PROVIDERS: PCP Internal Medicine; Visit Provider Nurse Practitioner Family | DX: E11.52 Type 2 diabetes mellitus with diabetic peripheral angiopathy with gangrene (principal); L97.322 Non-pressure chronic ulcer of left ankle with fat layer exposed; L89.892 Pressure ulcer of other site, stage 2; L97.822 Non-pressure chronic ulcer of other part of left lower leg with fat layer exposed | CPT/HCPCS: 97597; 97598 ==

== ENCOUNTER → 2022-11-07 09:59 | Outpatient (BNVA) | payer MEDICARE, MEDICAID, SELFPAY | PROVIDERS: PCP Internal Medicine; Visit Provider Nurse Practitioner Family | DX: E11.52 Type 2 diabetes mellitus with diabetic peripheral angiopathy with gangrene (principal); L97.322 Non-pressure chronic ulcer of left ankle with fat layer exposed; L97.822 Non-pressure chronic ulcer of other part of left lower leg with fat layer exposed | CPT/HCPCS: 97597; 97598 ==

== ENCOUNTER 2022-11-13 05:46 | Outpatient (CLI) | payer MEDICARE, MEDICAID, SELFPAY ==
[2022-11-12 14:39] VITALS: BP 190/83; PULSE 89; RESP 18; TEMP 36.7; O2SAT 96; BMI 44.6
[2022-11-13] VITALS (15 sets, daily range): BP systolic 129–190; BP diastolic 61–94; PULSE 78–89; RESP 15–19; TEMP 36.7; O2SAT 90–96; BMI 44.6
[2022-11-13 06:47] LABS: Basophils # 0.1 10^3/uL (0.0-0.1); Basophils % 0.4 %; Eosinophils # 0.3 10^3/uL (0.0-0.8); Eosinophils % 2.9 %; Hematocrit 34.5 % (36-47); Lymphocytes # 1.8 10^3/uL (0.8-4.8); Lymphocytes % 15.7 %; Mean Corpuscular HGB Conc 31.3 g/dL (30-55); Mean Corpuscular Hemoglobin 29.6 pg (27-33); Mean Corpuscular Volume 94.5 fl (85-98); Mean Platelet Volume 9.5 fL (7.4-10.4); Monocytes # 0.7 10^3/uL (0.2-0.9); Monocytes % 6.1 %; Neutrophils % 73.9 %; Nucleated Red Blood Cells % 0 %; Platelet Count 313 10^3/cmm (157-399); Red Blood Count 3.65 10^6/uL (3.85-5.65); Red Cell Distribution Width 15.1 % (12.1-15.1); White Blood Count 11.37 10^3/uL (3.29-11.43)
[2022-11-13] MEDS: diphenhydrAMINE 50 mg Capsule PO (06:52)
--- NOTE | 2022-11-13 07:00 | XACV_ITS ---
Ht: 168 cm Wt: 126 kg BSA: 2.49 m2 Any Known Allergies: Other Gender: Female : 1955 Exam Type: Invasive Peripheral Vascular Procedure(s): Procedure Description: Peripheral Cath Diagnostic Procedure Procedure Description: Abdominal aortic angiography Procedure Description: Lower extremities' angiography Exam Priority: Routine Lower Extremity Diagnostic Findings INDICATION: Severe claudication/non healing left lower extremity ulcer. Right lower extremity findings: Right common iliac artery is patent. Right external iliac artery is patent. Right common femoral artery is patent. Right SFA is patent with patent prior stent. Right profunda is patent. Right popliteal artery is patent. Right TP segment is patent. Right peroneal artery is patent. Right posterior tibial artery is patent. Right Anterior tibial artery is occluded. Left lower extremity findings: Left common iliac artery is patent. Left external iliac artery is patent. Left common femoral artery is patent. Left SFA is patent. Left profunda is patent. Left popliteal artery is patent. Left TP segment is patent. Left peroneal artery is patent. Left posterior tibial artery has proximal 80% stenosis. Left Anterior tibial artery is occluded. Has good collateral supply. Conclusions Bilateral below the knee peripheral artery disease with collaterals. Medical therapy. Recommendations Aggressive risk factor modification. Outpatient cardiology follow up in 2-4 weeks. Access Site Site: Right Femoral artery Sheath Size: 6 Fr Hemost... Method: Mynx Hemost... Success: Successful Procedure Details Findings Procedure Consent Obtained. Admit Source: Out Patient. Physician arrived. Current diagnosis: Lifestyle limiting claudication, Non-healing ulcers of left leg. Physician scrubbed in. Time out performed with cath team. Ultrasound obtained to assist to arterial access. Lidocaine 1% infiltrated to the right groin. Arterial access obtained with micropuncture set. A 5Fr UF catheter in over wire. Abdominal aortogram performed in AP @ 10 mL/sec for a total of 30 mL. DSA Abdominal aortogram performed in AP @ 10 mL/sec for a total of 30 mL. Glidewire in through UFcatheter, catheter repositioned. Glidewire out. Left common iliac selected and arteriogram with runoff performed @ 10 mL/sec for a total of 30 mL. Glidewire advanced through catheter. Catheter advanced to external iliac over the glide wire. Glidwire out. Left external iliac selected and arteriogram performed. Left popliteal selected and arteriogram performed in DSA to visualize distal vessels. Left superficial femoral selected and arteriogram performed. Uf catheter out over standard wire. Sheath injected in Right common femoral artery and runoff performed. A Mynx was successful obtaining hemostatsis at the Right Femoral artery insertion site. LOT # [id number] EXP 10-16-2024. Mynx placed without complications. No signs or symptoms of hematoma noted. Sterile dressing applied per usual sterile fashion. Post Procedure: Pulses reassessed and unchanged. PERRLA. Strong, equal hand robot operator bilaterally. No VTE prophylaxis required. Medication's Wasted: Heparin = 4000 units. Total IV fluids: 65 mL. Post-op diagnosis: Severe PAD below the knee bilateral leg. Complications: None. Estimated blood loss: 5mL-10mL. Responsiveness - Normal response to verbal stimuli; alert and oriented, PERRLA. Airway - Unaffected, no intervention required; spontaneous ventilation. Circulation: W/N/L, pulses unchanged. Nausea/Vomiting: No. Procedure completed. Patient transferred by bed to CPRU. Procedure started. Vital chart was stopped. Procedure Medications Start: 7:57 AM Stop: 7:57 AM Medication: Versed Amount: 1 mg Route: I.V. Start: 7:57 AM Stop: 7:57 AM Medication: Fentanyl Amount: 50 mcg Route: I.V. Start: 8:09 AM Stop: 8:09 AM Medication: Versed Amount: 1 mg Route: I.V. Start: 8:30 AM Stop: 8:30 AM Medication: Fentanyl Amount: 25 mcg Route: I.V. Start: 8:33 AM Stop: 8:33 AM Medication: Fentanyl Amount: 25 mcg Route: I.V. I, the attending physician, have reviewed and verified all procedure medications. Yes, all medications given per verbal order History/Risk Factors Hypertension: Yes Peripheral Arterial Disease (PAD): Yes Obesity: Yes Tobacco Use: Former Prior Interventions PCI: Yes CABG: No Report Signatures Finalized by Tom Argueta MD on 11/16/2022 11:36 AM
[2022-11-13 07:02] LABS: Anion Gap 17.7 (5-19); Blood Urea Nitrogen 21 mg/dL (8-23); Calcium 9.4 mg/dL (8.5-10.5); Carbon Dioxide 23 mmol/L (22-29); Chloride 108 mmol/L (98-107); Glomerular Filtration Rate 49.7 mL/min (90-130); Glucose 194 mg/dL (65-115); Osmolality Calculated 306 mOsm/kg (285-295); Potassium 4.7 mmol/L (3.5-5.1); Sodium 144 mmol/L (136-145)
--- NOTE | 2022-11-13 07:51 | P.HP_ITS ---
Same Day Surgery H&P Indication for Procedure/HPI DATE OF PROCEDURE: November 13, 2022 CHIEF COMPLAINT/INDICATIONFOR SURGICAL PROCEDURE: Severe claudication/non healing left leg ulcers PREOP DIAGNOSIS: Severe claudication/non healing left leg ulcers PLANNED PROCEDURE: Operation Date: 11/13/22 07:00 Proposed Procedures p periphereal angiogram 75338,I73.9(Not Applicable) - Tom Argueta M.D Possible intervention 66-year-old woman with past medical history of PAD, hypertension, diabetes who has been having severe bilateral leg discomfort on exertion. She also has nonhealing left leg ulcers. Plan for peripheral angiogram with possible percutaneous intervention. Risks and benefits of the procedure been discussed with the patient who understands them. Medications/Allergies* Home Medications Medication Instructions Recorded Confirmed Type allopurinol 100 mg tablet 100 mg PO DAILY@0704/25/19 11/13/22 History aspirin 325 mg tablet 325 mg PO DAILY@0704/25/19 11/13/22 History clonidine HCl 0.1 mg tablet 0.1 mg PO Q8H 04/25/19 11/13/22 History gabapentin 300 mg capsule 300 mg PO TID@07,,04/25/19 11/13/22 History isosorbide mononitrate 60 mg 90 mg PO DAILY@69904/25/19 11/13/22 History tablet,extended release 24 hr polyethylene glycol 3350 17 17 g PO DAILY PRN Constipation 04/25/19 11/13/22 History gram/dose oral powder simvastatin 10 mg tablet 10 mg PO DAILY@219904/25/19 11/13/22 History amitriptyline 25 mg tablet 25 mg PO BEDTIME@219909/05/19 11/13/22 History insulin degludec 100 unit/mL (3 42 unit SUBCUT BID 09/06/20 11/13/22 History mL) subcutaneous pen (Tresiba FlexTouch U-100 insulin) cholecalciferol (vitamin D3) 1,250 50,000 unit PO Q7D 12/06/20 11/13/22 History mcg (50,000 unit) capsule insulin lispro 100 unit/mL 35 unit SUBCUT TID 07/30/21 11/13/22 History subcutaneous pen (Humalog KwikPen (U-100) Insulin) tramadol 50 mg tablet 50 mg PO BID PRN Pain 09/02/22 11/13/22 History duloxetine 30 mg capsule,delayed 30 mg PO DAILY 10/15/22 11/13/22 History release pantoprazole 40 mg tablet,delayed 40 mg PO DAILY 10/15/22 11/13/22 History release Allergies/Adverse Reactions Allergy/AdvReac Type Severity Reaction Status Date / Time anastrozole Allergy ALGY-Joint Verified 10/15/22 07:37 Pain Current Medications: Generic Name Dose Route Start Last Admin Trade Name Freq PRN Reason Stop Dose Admin Sodium Chloride 1,000 mls @ 50 mls/hr 11/13/22 06:00 11/13/22 06:52 Sodium Chloride 0.9% IV 11/14/22 01:59 Not Given .Q20H ONE Pertinent History/Comorbid Conditions* Medical History (Updated 10/18/22 @ 00:01 by DAVID Monroy) Anemia Atherosclerosis of coronary artery of [place] heart without angina pectoris Atrial fibrillation, chronic Chronic obstructive pulmonary disease Chronic venous insufficiency CKD (chronic kidney disease) Diabetes Diastolic heart failure History of breast cancer Hypertension Leg pain Lower extremity edema Peripheral arterial disease Screen for colon cancer Surgical History (Updated 12/09/21 @ 11:21 by Valentin Partida MD) History of carpal tunnel release of both wrists History of colonoscopy with polypectomy (~08/2019) dr. zacarias [facility] [place]. History of coronary angioplasty with insertion of stent History of coronary artery balloon dilation History of esophagogastroduodenoscopy (EGD) (~08/2019) dr[facility] zacarias [facility] [place]. History of lumpectomy Family History (Updated 12/09/21 @ 11:00 by Karen Torrez RN) Diabetes Father CAD (coronary artery disease) Father, Onset Age: 50 Hyperlipidemia Father Lung disease Father Cancer Father Hypertension Father Denies family history of Clotting disorder Dementia Psychiatric illness Chronic kidney disease (CKD) Suicide Anesthesia complication Bleeding disorder Stroke Social History Smoking and tobacco status: former smoker Quit status (tobacco): has quit using tobacco Year quit tobacco: 2015 - 2PPD x 40 Years Alcohol intake: never Counseling given: No Substance/Drug Use: never Counseling given: No Lives independently: Yes Household members: spouse Marital status: Current occupational status: retired Do you think of yourself as: Straight/Heterosexual Current gender identity: Female Pertinent Exam Findings alert, oriented x 3, clear to auscultation bilaterally and regular rate & rhythm Conscious Sedation Assessment PATIENT ASSESSED PRIOR TO SEDATION, WITH NO CHANGE NOTED: Yes AIRWAY EVAL/ANESTHESIA PLAN: normal airway, see other exam findings, ASA III, Local Anesthesia, Risks, benefits & alternatives of sedation and/or procedure discussed and Patient agrees to continue as planned ADDITIONAL INFORMATION: Moderate sedation Recommendations Surgery/Procedure today (Staged PCI of LCx/OM) Coding Level of Care Code Acute Code for Chg Fwd Diagnoses
[2022-11-13 08:16] LABS: Glucose Point of Care 173 mg/dL (70-110)
--- NOTE | 2022-11-13 09:30 | PC.NURSE ---
0900: Patient arrived to CPRU from laboratory sampler post procedure. Dsg to patient right groin clean, dry, et intact. No drainage or hematoma noted, pedal pulses doppled, 2+ bilaterally. Vital WDL. No c/o pain or discomfort. Will continue to monitor. 0930: Transfer orders received. Dsg to patient right groin clean, dry, et intact. No drainage or hematoma noted, pedal pulses doppled, 2+ bilaterally. Vital WDL. No c/o pain or discomfort. Report given to SHANE Page. Patient transferred to CSU via hospital bed. All belongings sent with patient.
--- NOTE | 2022-11-13 16:50 | PC.NURSE ---
Discharge Note Patient discharged to home via POV accompanied by spouse. Discharge instructions reviewed with patient and/or high school admissions representative. Mobile pharmacy medications and/or prescriptions provided. Belongings/home medications returned.
== END 2022-11-13 16:50 | disposition home or self-care (01) ==
LOC: CCL 05:47 → CSU 10:05
PROVIDERS: PCP Internal Medicine; Visit Provider Internal Medicine
DX: I70.223 Atherosclerosis of native arteries of extremities with rest pain, bilateral legs (principal); E11.622 Type 2 diabetes mellitus with other skin ulcer; L97.829 Non-pressure chronic ulcer of other part of left lower leg with unspecified severity; E11.22 Type 2 diabetes mellitus with diabetic chronic kidney disease; I13.0 Hypertensive heart and chronic kidney disease with heart failure and stage 1 through stage 4 chronic kidney disease, or unspecified chronic kidney disease; N18.9 Chronic kidney disease, unspecified; I50.30 Unspecified diastolic (congestive) heart failure; Z79.82 Long term (current) use of aspirin; I48.20 Chronic atrial fibrillation, unspecified; J44.9 Chronic obstructive pulmonary disease, unspecified; Z85.3 Personal history of malignant neoplasm of breast; Z82.49 Family history of ischemic heart disease and other diseases of the circulatory system; Z87.891 Personal history of nicotine dependence; E66.9 Obesity, unspecified; Z68.41 Body mass index [BMI] 40.0-44.9, adult; Z79.4 Long term (current) use of insulin
CPT/HCPCS: 36415; 36416; 75625; 75716; 80048; 82962; 85025; 96365; 99152; 99153; C1760; C1769; C1887; C1894; J1644; J2250; J3010; J7030; Q0163; Q9967

== ENCOUNTER → 2022-11-14 14:47 | Outpatient (BNVA) | payer MEDICARE, MEDICAID, SELFPAY | PROVIDERS: PCP Internal Medicine; Visit Provider Thoracic Surgery (Cardiothoracic Vascular Surgery) | DX: E11.52 Type 2 diabetes mellitus with diabetic peripheral angiopathy with gangrene (principal); L97.322 Non-pressure chronic ulcer of left ankle with fat layer exposed; L97.822 Non-pressure chronic ulcer of other part of left lower leg with fat layer exposed | CPT/HCPCS: 97597; 97598 ==

== ENCOUNTER → 2022-11-28 13:56 | Outpatient (BNVA) | payer MEDICARE, MEDICAID, SELFPAY | PROVIDERS: PCP Internal Medicine; Visit Provider Thoracic Surgery (Cardiothoracic Vascular Surgery) | DX: E11.52 Type 2 diabetes mellitus with diabetic peripheral angiopathy with gangrene (principal); E11.622 Type 2 diabetes mellitus with other skin ulcer; L97.322 Non-pressure chronic ulcer of left ankle with fat layer exposed; L97.821 Non-pressure chronic ulcer of other part of left lower leg limited to breakdown of skin; L97.812 Non-pressure chronic ulcer of other part of right lower leg with fat layer exposed; L89.892 Pressure ulcer of other site, stage 2 | CPT/HCPCS: 11042; 97597; 97598; A6253 ==

== ENCOUNTER 2022-12-01 08:00 | Outpatient (CLI) | payer MEDICARE, MEDICAID, SELFPAY | END 2022-12-01 08:01 | disposition home or self-care (01) | LOC: RAD 04-07 08:03 | PROVIDERS: PCP Internal Medicine; Visit Provider Internal Medicine | DX: E11.52 Type 2 diabetes mellitus with diabetic peripheral angiopathy with gangrene (principal); E11.621 Type 2 diabetes mellitus with foot ulcer; L97.321 Non-pressure chronic ulcer of left ankle limited to breakdown of skin; E11.622 Type 2 diabetes mellitus with other skin ulcer; L97.821 Non-pressure chronic ulcer of other part of left lower leg limited to breakdown of skin; L97.811 Non-pressure chronic ulcer of other part of right lower leg limited to breakdown of skin | CPT/HCPCS: 97597; 97598; A6253 ==

== ENCOUNTER → 2022-12-02 10:28 | Outpatient (BNVA) | payer MEDICARE, MEDICAID, SELFPAY | PROVIDERS: PCP Internal Medicine; Visit Provider Nurse Practitioner Family | DX: E11.52 Type 2 diabetes mellitus with diabetic peripheral angiopathy with gangrene (principal); E11.622 Type 2 diabetes mellitus with other skin ulcer; L97.321 Non-pressure chronic ulcer of left ankle limited to breakdown of skin; L97.821 Non-pressure chronic ulcer of other part of left lower leg limited to breakdown of skin; L97.811 Non-pressure chronic ulcer of other part of right lower leg limited to breakdown of skin | CPT/HCPCS: 29581; A6252 ==

== ENCOUNTER → 2022-12-03 11:04 | Outpatient (BNVA) | payer MEDICARE, MEDICAID, SELFPAY | PROVIDERS: PCP Internal Medicine; Visit Provider Thoracic Surgery (Cardiothoracic Vascular Surgery) | DX: E11.52 Type 2 diabetes mellitus with diabetic peripheral angiopathy with gangrene (principal); E11.622 Type 2 diabetes mellitus with other skin ulcer; L97.321 Non-pressure chronic ulcer of left ankle limited to breakdown of skin; L97.821 Non-pressure chronic ulcer of other part of left lower leg limited to breakdown of skin; L97.811 Non-pressure chronic ulcer of other part of right lower leg limited to breakdown of skin | CPT/HCPCS: 29581; A6251; A6253 ==

== ENCOUNTER → 2022-12-05 13:55 | Outpatient (BNVA) | payer MEDICARE, MEDICAID, SELFPAY | PROVIDERS: PCP Internal Medicine; Visit Provider Thoracic Surgery (Cardiothoracic Vascular Surgery) | DX: E11.52 Type 2 diabetes mellitus with diabetic peripheral angiopathy with gangrene (principal); E11.622 Type 2 diabetes mellitus with other skin ulcer; L97.321 Non-pressure chronic ulcer of left ankle limited to breakdown of skin; L97.821 Non-pressure chronic ulcer of other part of left lower leg limited to breakdown of skin; L97.811 Non-pressure chronic ulcer of other part of right lower leg limited to breakdown of skin; L89.892 Pressure ulcer of other site, stage 2 | CPT/HCPCS: 11042; 97597; 97598; A6213 ==

== ENCOUNTER → 2022-12-12 14:13 | Outpatient (BNVA) | payer MEDICARE, MEDICAID, SELFPAY | PROVIDERS: PCP Internal Medicine; Visit Provider Nurse Practitioner Family | DX: E11.52 Type 2 diabetes mellitus with diabetic peripheral angiopathy with gangrene (principal); E11.622 Type 2 diabetes mellitus with other skin ulcer; L97.322 Non-pressure chronic ulcer of left ankle with fat layer exposed; L97.822 Non-pressure chronic ulcer of other part of left lower leg with fat layer exposed; L97.811 Non-pressure chronic ulcer of other part of right lower leg limited to breakdown of skin | CPT/HCPCS: 11042; 11045 ==

== ENCOUNTER → 2022-12-18 12:01 | Outpatient (BNVA) | payer MEDICARE, MEDICAID, SELFPAY | PROVIDERS: PCP Internal Medicine; Visit Provider Internal Medicine Cardiovascular Disease | DX: R06.02 Shortness of breath (principal); I48.20 Chronic atrial fibrillation, unspecified; I50.32 Chronic diastolic (congestive) heart failure; I25.10 Atherosclerotic heart disease of native coronary artery without angina pectoris; I10 Essential (primary) hypertension; L98.499 Non-pressure chronic ulcer of skin of other sites with unspecified severity; I73.9 Peripheral vascular disease, unspecified; I35.0 Nonrheumatic aortic (valve) stenosis; Z98.890 Other specified postprocedural states | CPT/HCPCS: 36415; 80048; 83880; 99214 ==

== ENCOUNTER → 2022-12-19 13:37 | Outpatient (BNVA) | payer MEDICARE, MEDICAID, SELFPAY | PROVIDERS: PCP Internal Medicine; Visit Provider Thoracic Surgery (Cardiothoracic Vascular Surgery) | DX: E11.52 Type 2 diabetes mellitus with diabetic peripheral angiopathy with gangrene (principal); E11.622 Type 2 diabetes mellitus with other skin ulcer; L97.321 Non-pressure chronic ulcer of left ankle limited to breakdown of skin; L97.811 Non-pressure chronic ulcer of other part of right lower leg limited to breakdown of skin; L97.821 Non-pressure chronic ulcer of other part of left lower leg limited to breakdown of skin | CPT/HCPCS: 11042; 97597; 97598; A6197 ==

== ENCOUNTER 2022-12-31 14:49 | Outpatient (CLI) | payer MEDICARE, MEDICAID, SELFPAY ==
--- NOTE | 2022-12-31 15:15 | USCV_ITS ---
Seema Del Rosario Age: 67 Gender: F : 1955 Exam Date: 12/31/2022 15:24 Ordering Phys: Valentin Partida MD ([email or web address]) Technologist: Jennifer Mathew [place] [facility] [place]: MR BP: / HR: 69 Rhythm: Sinus Technical Quality: Adequate MEASUREMENTS (Male / Female) Normal Values 2D ECHO LV Diastolic Diameter PLAX 4.6 cm 4.2 - 5.9 / 3.9 - 5.3 cm LV Systolic Diameter PLAX 3.1 cm LV Chamber Size 4.7 cm IVS Diastolic Thickness 1.5 cm 0.6 - 1.0 / 0.6 - 0.9 cm IVS Systolic Thickness 1.3 cm LVPW Diastolic Thickness 1.5 cm 0.6 - 1.0 / 0.6 - 0.9 cm LVPW Systolic Thickness 2.5 cm RV Chamber Size 3.4 cm LVOT Diameter 2.1 cm LV Ejection Fraction 2D Teich 38.4 % LV Ejection Fraction MOD 2C 62.7 % LV Ejection Fraction 2C AL 63.7 % LA Diameter 4.3 cm LA Width 3.6 cm LA Height 4.9 cm RA Width 3.8 cm RA Height 4.4 cm Aorta at Sinotubular Diameter 3.1 cm M-MODE Aortic Annulus Diameter 3.4 cm LA Ao Ratio MM 1.7 MV E Point Septal Separation 1.4 cm DOPPLER AV Peak Velocity 185.0 cm/s LVOT Peak Velocity 101.5 cm/s AV Area Cont Eq vti 2.0 cm squared AV Area Cont Eq pk 1.8 cm squared MV Area PHT 4.4 cm squared Mitral E to A Ratio 1.1 MV E' Velocity 63.5 cm/s Mitral E to MV E' Ratio 20.4 Mitral E to LV E' Lateral Ratio 24.4 Mitral E to LV E' Septal Ratio 17.7 TR Peak Velocity 175.5 cm/s TR Peak Gradient 12.3 mmHg TR Mean Velocity 140.4 cm/s TR Mean Gradient 8.2 mmHg TR Velocity Time Integral 47.4 cm TV Peak E Velocity 50.0 cm/s Right Atrial Pressure 3.0 mmHg Pulmonary Artery Systolic Pressu 15.3 mmHg RV Acceleration Time 0.1 s RV Ejection Time 0.3 s RV AcT/ET 0.4 FINDINGS Left Ventricle Normal left ventricular size and systolic function, EF 61 %. No regional wall motion abnormalities. Grade II/IV diastolic dysfunction, moderately elevated filling pressures. Right Ventricle The right ventricle is normal in size and function. Right Atrium Mildly increased right atrial size. Left Atrium Mildly increased left atrial size. Mitral Valve Mild mitral annular calcification. Aortic Valve Thickened aortic valve. Aortic valve sclerosis. Tricuspid Valve No gross abnormalities noted Pulmonic Valve Pulmonic valve not well visualized. Pericardium Normal pericardium without effusion. Aorta Normal ascending aorta dimension. IVC Inferior vena cava not visualized. CONCLUSIONS Normal left ventricular size and systolic function, EF 61 %. No regional wall motion abnormalities. Grade II/IV diastolic dysfunction, moderately elevated filling pressures. Mild biatrial enlargement. Mild mitral annular calcification. Features of aortic valve sclerosis. There is no pericardial effusion. Technically difficult study because of the poor ultrasonic window. Dr Valentin Partida MD FACC (Electronically Signed) Final Date: 03 January 2023 12:09 S
== END 2022-12-31 14:50 | disposition home or self-care (01) ==
PROVIDERS: PCP Internal Medicine; Visit Provider Internal Medicine Cardiovascular Disease
DX: I34.81 Nonrheumatic mitral (valve) annulus calcification (principal); I51.7 Cardiomegaly; I51.89 Other ill-defined heart diseases; R06.09 Other forms of dyspnea
CPT/HCPCS: 11042; 93306; 97597; 97598; A6197

== ENCOUNTER → 2023-01-02 13:52 | Outpatient (BNVA) | payer MEDICARE, MEDICAID, SELFPAY | PROVIDERS: PCP Internal Medicine; Visit Provider Thoracic Surgery (Cardiothoracic Vascular Surgery) | DX: E11.52 Type 2 diabetes mellitus with diabetic peripheral angiopathy with gangrene (principal); E11.622 Type 2 diabetes mellitus with other skin ulcer; L97.322 Non-pressure chronic ulcer of left ankle with fat layer exposed; L97.821 Non-pressure chronic ulcer of other part of left lower leg limited to breakdown of skin; L97.811 Non-pressure chronic ulcer of other part of right lower leg limited to breakdown of skin | CPT/HCPCS: 11042; 97597; 97598; A6197 ==

== ENCOUNTER 2023-01-12 06:39 | Inpatient (IN) | payer MEDICARE, MEDICAID, SELFPAY ==
[2023-01-12] VITALS (110 sets, daily range): BP systolic 132–221; BP diastolic 60–111; PULSE 21–107; RESP 15–44; TEMP 36.6–37.3; O2SAT 74–96; BMI 48.4
--- NOTE | 2023-01-12 06:46 | ECG_ITS ---
[facility] Test Date: 2023-01-12 Pat Name: Seema Del Rosario Department: Room: Gender: Female Ingot Passer: : 1955 Requested By: Godwin Morrow Order Number: [id number] Jennie MD: Jessica Conner M.D. 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 [id number]
--- NOTE | 2023-01-12 06:47 | XRR_ITS ---
PROCEDURE INFORMATION: Exam: XR Right Hip Exam date and time: 01/12/2023 7:00 AM Age: 67 years old Clinical indication: Injury or trauma; Fall; Blunt trauma (contusions or hematomas); Right; Hip TECHNIQUE: Imaging protocol: Radiologic exam of the right hip. Views: 1 view hip with pelvis when performed. COMPARISON: CR XR hip BI 3-4V wo/w pel [id number] 09/16/2021 3:54 PM FINDINGS: Bones/joints: Moderate articular surface narrowing and spurring. No fracture or dislocation. No acute osseous or joint abnormality. Soft tissues: Unremarkable. XR/XR hip RT 2-3V wo/w pel* [id number] IMPRESSION: Degenerative changes.
--- NOTE | 2023-01-12 06:58 | XRR_ITS ---
PROCEDURE INFORMATION: Exam: XR Right Knee Exam date and time: 01/12/2023 7:03 AM Age: 67 years old Clinical indication: Injury or trauma; Fall; Work related; Blunt trauma; Knee; Right TECHNIQUE: Imaging protocol: Radiologic exam of the right knee. Views: 3 views. COMPARISON: CT angio abd aorta runof [id number] 09/04/2022 7:28 AM FINDINGS: Bones/joints: Marked degenerative changes. Tricompartment narrowing and spurring with periarticular cyst medially. No acute osseous or joint abnormality. Soft tissues: Normal. Vasculature: Arterial calcifications. XR/XR knee RT 3V* [id number] IMPRESSION: Degenerative changes.
[2023-01-12 06:59] LABS: Basophils # 0.1 10^3/uL (0.0-0.1); Basophils % 0.3 %; Hematocrit 34.8 % (36-47); Lymphocytes # 1.1 10^3/uL (0.8-4.8); Lymphocytes % 3.8 %; Mean Corpuscular HGB Conc 31.3 g/dL (30-55); Mean Corpuscular Hemoglobin 28.8 pg (27-33); Mean Corpuscular Volume 91.8 fl (85-98); Mean Platelet Volume 9.5 fL (7.4-10.4); Monocytes % 3.3 %; Neutrophils # 26.68 10^3/uL (1.8-7.7); Nucleated Red Blood Cells % 0 %; Platelet Count 282 10^3/cmm (157-399); Red Blood Count 3.79 10^6/uL (3.85-5.65); Red Cell Distribution Width 14.2 % (12.1-15.1); White Blood Count 28.99 10^3/uL (3.29-11.43)
--- NOTE | 2023-01-12 06:59 | CT_ITS ---
WS: [id number] CT CERVICAL TRAUMA TECHNIQUE: Noncontrast CT of the cervical spine with coronal and sagittal reformatted images. CLINICAL INFORMATION: trauma COMPARISON: None. DLP: 2071.[address] scans at [facility] use at least one of these dose optimization techniques: automated e xposure control; mA and/or kV adjustment per patient size (includes targeted exams where dose is matc hed to clinical indication); or iterative reconstruction. FINDINGS: Osteopenia. Moderate spondylitic changes. Slight anterolisthesis C3 on C4 and C4 on C5. The space iliana rowing worse at C4-5. Normal craniocervical junction. Normal C1-C2 articulation. Dens is normal in ap pearance. Normal occipital condyles. No high-grade spinal canal narrowing. Normal C1 ring. No evidenc e of acute fracture or dislocation. Normal prevertebral soft tissues. Mastoids air cells are well aerated. Small thyroid nodules. Carotid bulb calcification. IMPRESSION: No evidence of acute fracture or dislocation.
--- NOTE | 2023-01-12 06:59 | CT_ITS ---
WS: [id number] CT HEAD TECHNIQUE: Noncontrast CT of the head obtained from the skullbase to the vertex. CLINICAL INFORMATION: trauma COMPARISON: CT head 09/16/2021 DLP: 2071.[address] scans at [facility] use at least one of these dose optimization techniques: automated e xposure control; mA and/or kV adjustment per patient size (includes targeted exams where dose is matc hed to clinical indication); or iterative reconstruction. FINDINGS: No evidence of intracranial hemorrhage or mass effect. Ventricular system and basal cisterns are valdovinos nt. Mild small vessel changes with mild parenchymal volume loss. Vascular calcification. No extra-axi al fluid collections. No evidence of mass or mass effect. Paranasal sinuses and mastoid air cells are well aerated. .Normal visualized soft tissues. IMPRESSION: 1. No evidence of intracranial hemorrhage or mass effect. 2. No acute intracranial findings.
--- NOTE | 2023-01-12 06:59 | ED_ITS ---
HPI - Fall General: Chief Complaint: ER Hold Stated Complaint: WEAKNESS/FALL Time Seen by Provider: 01/12/23 06:40 Source: patient Mode of arrival: EMS History of Present Illness: 67-year-old female with a history of falls presents to the emergency room complaining of fall last another this morning. Last night she fell her family helped her get up and she spent the night in a recliner. This morning she went to get out of the recliner and she fell again her was with her and calling ambulance that she could not get back up. She states her legs just felt very very weak. She has a history of hypertension and diabetes mellitus she has history of chronic venous stasis ulcers for which she sees the wound clinic she reports her temperature yesterday was up to 103 at times although it is lower at this time. MD complaint: fall Onset (ago): hour(s) Fall from: chair Fall witnessed: yes, by family Place fall occurred: home Loss of consciousness: None Context: history of frequent falls Associated symptoms-after fall: Denies abdominal pain, chest pain, confusion, difficulty walking, headache(s), hematuria, lightheadedness, neck pain, numbness, short of breath, vertigo or weakness Review of Systems Const: Reports: fever(s), chills, fatigue and malaise Card: Denies: chest pain or lightheadedness Resp: Denies: dyspnea GI: Denies: abdominal pain : Denies: hematuria Musc: Denies: neck pain Skin/Breast: Denies: rash Neuro: Denies: headache(s), difficulty walking, vertigo or confusion PFSH ED PFSH: Medical History Anemia Atherosclerosis of coronary artery of [place] heart without angina pectoris Atrial fibrillation, chronic Chronic obstructive pulmonary disease Chronic venous insufficiency CKD (chronic kidney disease) Diabetes Diastolic heart failure History of breast cancer Hypertension Leg pain Lower extremity edema Peripheral arterial disease Screen for colon cancer Surgical History History of carpal tunnel release of both wrists History of colonoscopy with polypectomy (~08/2019) dr. zacarias, [facility] [place]. History of coronary angioplasty with insertion of stent History of coronary artery balloon dilation History of esophagogastroduodenoscopy (EGD) (~08/2019) dr. zacarias, [facility] [place] History of lumpectomy Family History Father CAD (coronary artery disease), Onset Age: 50 Cancer Diabetes Hyperlipidemia Hypertension Lung disease Denies family history of Clotting disorder Dementia Psychiatric illness Chronic kidney disease (CKD) Suicide Anesthesia complication Bleeding disorder Stroke Social History Smoking and tobacco/nicotine status: former use of tobacco/nicotine Quit status (tobacco/nicotine): has quit using Year quit tobacco: 2016 - 2PPD x 40 Years Alcohol intake: never Substance/Drug Use: never Lives independently: Yes Household members: spouse Marital status: Current occupational status: retired Do you think of yourself as: Straight/Heterosexual Current gender identity: Female Physical Exam Const: GENERAL APPEARANCE: cooperative and comfortable ORIENTATION/CONSCIOUSNESS: Yes awake, Yes oriented to person, Yes oriented to place and Yes oriented to time HENMT: COMMON NORMALS: normocephalic, atraumatic and hearing grossly normal bilaterally HEAD & SCALP: normocephalic and atraumatic Resp: COMMON NORMALS: normal respiratory effort, No retractions, No use of accessory muscles and clear to auscultation bilaterally AUSCULTATION: clear to auscultation bilaterally Cardio: COMMON NORMALS: regular rate, regular rhythm and No murmurs present (Cardio) RATE: regular rate RHYTHM: regular rhythm GI: COMMON NORMALS: Soft to palpation and No hepatosplenomegaly present AUSCULTATION: Yes normoactive bowel sounds PALPATION: Yes Soft to palpation, No Tenderness to palpation present (GI), No Guarding due to palpation present (GI) and Yes No hepatosplenomegaly present Extremity: COMMON NORMALS: normal to inspection, capillary refill normal, no clubbing, cyanosis or edema, no calf tenderness and no pedal edema Neuro: SENSORIUM/ORIENTATION: Yes oriented to person, Yes oriented to place and Yes oriented to time Psych: OTHER: Arterial insufficiency ulcers lower extremities bilaterally left is worse than the right especially in the lateral aspect the left lower leg. There is redness erythema and induration. Tender to the touch patient and family member report increasing proximal redness from baseline. Course Vital Signs: Vital signs: Vital Signs Temperature 99.1 F 01/12/23 06:42 Pulse Rate 88 01/12/23 10:05 Respiratory Rate 22 H 01/12/23 10:05 Blood Pressure 221/73 01/12/23 10:05 Pulse Oximetry 76 L 01/12/23 10:05 Oxygen Delivery Me thod Room Air 01/12/23 07:01 MDM - Fall Medical Decision Making Admit orders placed. Admit for cellulitis with leukocytosis started on Vanco and Zosyn. Discussed Dr. Tolentino. Medical Records I reviewed the patient's medical records. Lab Data I reviewed the patient's lab results. 01/12/23 06:50 01/12/23 06:50 Radiology Impressions Hip/Pelvis X-Ray 01/12/23 06:47 IMPRESSION: Degenerative changes. Knee X-Ray 01/12/23 06:58 IMPRESSION: Degenerative changes. Chest X-Ray 01/12/23 07:03 IMPRESSION: No acute findings. Foot X-Ray 01/12/23 08:31 IMPRESSION: Irregularity of the 4th and 5th proximal phalanx, probably post traumatic but possibly remote. Tibia/Fibula X-Ray 01/12/23 08:31 IMPRESSION: No acute abnormality. Laboratory Results WBC 28.99 10^3/uL (3.29-11.43) H 01/12/23 06:50 RBC 3.79 10^6/uL (3.85-5.65) L 01/12/23 06:50 Hgb 10.90 g/dL (11.27-16.99) L 01/12/23 06:50 Hct 34.8 % (36-47) L 01/12/23 06:50 MCV 91.8 fl (85-98) 01/12/23 06:50 MCH 28.8 pg (27-33) 01/12/23 06:50 MCHC 31.3 g/dL (30-55) 01/12/23 06:50 RDW 14.2 % (12.1-15.1) 01/12/23 06:50 Plt Count 282 10^3/cmm (157-399) 01/12/23 06:50 MPV 9.5 fL (7.4-10.4) 01/12/23 06:50 Neut % (Auto) 92.0 % 01/12/23 06:50 Lymph % (Auto) 3.8 % 01/12/23 06:50 [place] % (Auto) 3.3 % 01/12/23 06:50 Eos % (Auto) 0.0 % 01/12/23 06:50 Baso % (Auto) 0.3 % 01/12/23 06:50 Neut # (Auto) 26.68 10^3/uL (1.8-7.7) H 01/12/23 06:50 Lymph # (Auto) 1.1 10^3/uL (0.8-4.8) 01/12/23 06:50 [place] # (Auto) 1.0 10^3/uL (0.2-0.9) H 01/12/23 06:50 Eos # (Auto) 0.0 10^3/uL (0.0-0.8) 01/12/23 06:50 Baso # (Auto) 0.1 10^3/uL (0.0-0.1) 01/12/23 06:50 Nucleated RBC % (auto) 0 % 01/12/23 06:50 Nucleated RBCs # 0.0 /100WBC 01/12/23 06:50 Sodium 134 mmol/L (136-145) L 01/12/23 06:50 Potassium 4.9 mmol/L (3.5-5.1) 01/12/23 06:50 Chloride 100 mmol/L (98-107) 01/12/23 06:50 Carbon Dioxide 22 mmol/L (22-29) 01/12/23 06:50 Anion Gap 16.9 (5-19) 01/12/23 06:50 BUN 27 mg/dL (8-23) H 01/12/23 06:50 Creatinine 1.7 mg/dL (0.5-0.9) H 01/12/23 06:50 GFR Calculation 30.0 mL/min (90-130) L 01/12/23 06:50 Glucose 160 mg/dL (65-115) H 01/12/23 06:50 Calculated Osmolality 287 mOsm/kg (285-295) 01/12/23 06:50 Lactic Acid 1.8 mmol/L (0.5-2.2) 01/12/23 06:50 Calcium 8.9 mg/dL (8.5-10.5) 01/12/23 06:50 Total Bilirubin 0.6 mg/dL (0.15-1.2) 01/12/23 06:50 AST 29 U/L (0-32) 01/12/23 06:50 ALT 20 U/L (0-33) 01/12/23 06:50 Alkaline Phosphatase 110 U/L (35-105) H 01/12/23 06:50 Creatine Kinase 376 U/L (26-192) H* 01/12/23 06:50 Total Protein 6.9 g/dL (6.6-8.7) 01/12/23 06:50 Albumin 3.4 g/dL (3.5-5.2) L 01/12/23 06:50 Globulin 3.5 g/dL (1.3-4.6) 01/12/23 06:50 Lipase 8 U/L (13-60) L 01/12/23 06:50 Urine Color Yellow (Yellow) 01/12/23 07:40 Urine Appearance Clear (CLEAR) 01/12/23 07:40 Urine pH 5 (5-7) 01/12/23 07:40 Ur Specific [place] 1.015 (1.005-1.030) 01/12/23 07:40 Urine Protein 3+ (Negative) H 01/12/23 07:40 Urine Glucose (UA) 1+ (Normal) H 01/12/23 07:40 Urine Ketones 1+ (Negative) H 01/12/23 07:40 Urine Blood 2+ (Negative) H 01/12/23 07:40 Urine Nitrate Negative (Negative) 01/12/23 07:40 Urine Bilirubin Neg (Negative) 01/12/23 07:40 Urine Urobilinogen Norm mg/dL (Negative) 01/12/23 07:40 Ur Leukocyte Esterase Negative (Negative) 01/12/23 07:40 Urine RBC 0-4 /hpf (0-2) H 01/12/23 07:40 Urine WBC 0-4 /hpf (0-5) H 01/12/23 07:40 Ur Squamous Epith Cells Rare /hpf (0-5) 01/12/23 07:40 Amorphous Sediment Not Reportable 01/12/23 07:40 Urine Bacteria Trace /hpf (NONE) 01/12/23 07:40 Nasal Influ A H1 2008 PCR Not detected (NOT DETECT) 01/12/23 07:15 Serum Ketones Negative (Negative) 01/12/23 06:50 Coronavirus 229E (PCR) Not detected (NOT DETECT) 01/12/23 07:15 Influenza A (H1) PCR Not detected (NOT DETECT) 01/12/23 07:15 Influenza A (H3) PCR Not detected (NOT DETECT) 01/12/23 07:15 Influenza Type A (PCR) Not detected (NOT DETECT) 01/12/23 07:15 Influenza Type B (PCR) Not detected (NOT DETECT) 01/12/23 07:15 SARS-CoV-2 (PCR) Not detected (NOT DETECT) 01/12/23 07:15 All radiology interpretation(s) finalized by discharge Discharge Plan Discharge Patient Disposition: Admitted As Inpatient Admit Provider: Augustine Tolentino Clinical Impression: Cellulitis and abscess of left leg, Anemia, Atrial fibrillation, chronic, Peripheral arterial disease, CKD (chronic kidney disease) Condition: Stable Coding Level of Care Code 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
--- NOTE | 2023-01-12 07:03 | XRR_ITS ---
PROCEDURE INFORMATION: Exam: XR Chest Exam date and time: 01/12/2023 7:11 AM Age: 67 years old Clinical indication: Cough and dyspnea; Additional info: Dyspnea/cough TECHNIQUE: Imaging protocol: Radiologic exam of the chest. Views: 1 view. COMPARISON: CR XR ribs LT mn 3V w CXR1V [id number] 09/02/2022 7:40 AM FINDINGS: Tubes, catheters and devices: Surgical clips project over lower left chest wall. Lungs: Unremarkable. No consolidation. Pleural spaces: Unremarkable. No pleural effusion. No pneumothorax. Heart/Mediastinum: Unremarkable. No cardiomegaly. Bones/joints: Unremarkable. XR/XR chest 1V portable [id number] IMPRESSION: No acute findings.
[2023-01-12 07:13] LABS: Ketone (Acetest) Serum Negative (Negative)
[2023-01-12 07:17] LABS: Lactic Sepsis W/Reflex 1.8 mmol/L (0.5-2.2)
[2023-01-12 07:21] LABS: Alanine Aminotransferase 20 U/L (0-33); Albumin Level 3.4 g/dL (3.5-5.2); Alkaline Phosphatase 110 U/L (35-105); Aspartate Amino Transferase 29 U/L (0-32); Blood Urea Nitrogen 27 mg/dL (8-23); Calcium 8.9 mg/dL (8.5-10.5); Carbon Dioxide 22 mmol/L (22-29); Chloride 100 mmol/L (98-107); Globulin 3.5 g/dL (1.3-4.6); Glucose 160 mg/dL (65-115); Lipase 8 U/L (13-60); Osmolality Calculated 287 mOsm/kg (285-295); Sodium 134 mmol/L (136-145); Total Bilirubin 0.6 mg/dL (0.15-1.2); Total Protein 6.9 g/dL (6.6-8.7)
[2023-01-12 07:24] LABS: Creatine Phosphokinase 376 U/L (26-192)
[2023-01-12 07:25] LABS: Anion Gap 16.9 (5-19); Potassium 4.9 mmol/L (3.5-5.1)
[2023-01-12] MEDS: piperacillin-tazobactam 3.375 GM in sodium chloride 0.9% (plus) 50 ML IV ×2 (07:44→22:13)
[2023-01-12 08:19] LABS: Urine Appearance Clear (CLEAR); Urine Color Yellow (Yellow)
[2023-01-12 08:20] LABS: Glucose Urine UA 1+ (Normal); Protein Urine 3+ (Negative); Specific Gravity, Urine 1.015 (1.005-1.030); pH Urine 5 (5-7)
[2023-01-12 08:21] LABS: Add Urine Microscopic? YES; Bacteria Urine TRACE /hpf; Bilirubin Urine Neg (Negative); Blood Urine 2+ (Negative); Ketones Urine 1+ (Negative); Leukocyte Esterase Urine Negative (Negative); Nitrate Urine Negative (Negative); RBC Urine 0-4 /hpf (0-2); Squamous Epithelial Cell Urine RARE /hpf (0-5); Urobilinogen Urine Norm (Negative); WBC Urine 0-4 /hpf (0-5)
[2023-01-12 08:22] LABS: Add Urine Culture? No
[2023-01-12] MEDS: vancomycin 1,000 MG in sodium chloride 0.9% 250 ML 250 MG IV (08:31)
--- NOTE | 2023-01-12 08:31 | XRR_ITS ---
PROCEDURE INFORMATION: Exam: XR Left Tibia and Fibula Exam date and time: 01/12/2023 8:39 AM Age: 67 years old Clinical indication: Pain; Lower leg; Bilateral TECHNIQUE: Imaging protocol: Radiologic exam of the left tibia and fibula. Views: 2 views. COMPARISON: CT angio abd aorta runof [id number] 09/04/2022 7:28 AM FINDINGS: Bones/joints: Moderate/marked articular surface narrowing, moderate tricompartment spurring of the knee. No acute osseous or joint abnormality. Soft tissues: Soft tissue calcifications are faintly seen. Vasculature: Arterial calcifications. XR/XR tibia fibula LT 2V [id number] IMPRESSION: No acute abnormality.
--- NOTE | 2023-01-12 08:31 | XRR_ITS ---
PROCEDURE INFORMATION: Exam: XR Right Tibia and Fibula Exam date and time: 01/12/2023 8:43 AM Age: 67 years old Clinical indication: Pain; Lower leg; Bilateral TECHNIQUE: Imaging protocol: Radiologic exam of the right tibia and fibula. Views: 2 views. COMPARISON: CT angio abd aorta runof [id number] 09/04/2022 7:28 AM FINDINGS: Bones/joints: Marked degenerative changes of the knee with tricompartment narrowing and spurring. No acute osseous or joint abnormality. Soft tissues: Normal. Vasculature: Arterial calcifications. XR/XR tibia fibula RT 2V [id number] IMPRESSION: No acute findings.
--- NOTE | 2023-01-12 08:31 | XRR_ITS ---
PROCEDURE INFORMATION: Exam: XR Right Foot Exam date and time: 01/12/2023 8:42 AM Age: 67 years old Clinical indication: Pain; Foot; Right TECHNIQUE: Imaging protocol: Radiologic exam of the right foot. Views: 3 or more views. COMPARISON: CT angio abd aorta runof [id number] 09/04/2022 7:28 AM FINDINGS: Bones/joints: Interphalangeal articular surface narrowing and spurring. Calcaneal spurring. Mild irregularity of the proximal phalanx of the 4th and 5th toe appears post traumatic, either recent or remote. Soft tissues: Normal. XR/XR foot RT min 3V* [id number] IMPRESSION: Irregularity of the 4th and 5th proximal phalanx, probably post traumatic but possibly remote.
--- NOTE | 2023-01-12 08:31 | XRR_ITS ---
PROCEDURE INFORMATION: Exam: XR Left Foot Exam date and time: 01/12/2023 8:37 AM Age: 67 years old Clinical indication: Injury or trauma; Fall; Blunt trauma; Foot; Left; Additional info: Leg pain TECHNIQUE: Imaging protocol: Radiologic exam of the left foot. Views: 3 or more views. COMPARISON: CT angio abd aorta runof [id number] 09/04/2022 7:28 AM FINDINGS: Bones/joints: Mild deformity of the head of the 5th meta tarsal, this appears to be old. Healed fracture of the 4th proximal phalanx similarly appears remote, clinical correlation is recommended however. Pes planus. Calcaneal spurring. Soft tissues: 5 mm thin wire projects over the soft tissues of the heel, either in or on the skin. XR/XR foot LT min 3V* [id number] IMPRESSION: No definite acute abnormality. Likely healed fracture of the 4th proximal phalanx.
--- NOTE | 2023-01-12 08:34 | PC.PHAR ---
pt states she takes care of her own medications-pt states dced her lasix 40mg bid ext shows last filled 11/17/22 90d/s-pt states she takes amlodipine 10mg qam ext shows last filled 12/25/22 90d/s another rx written 11/17/22 90d/s 5mg daily -notes are made in the pharmacy comments
[2023-01-12] MEDS: morphine 4 mg/mL SDV 1 mL 2 MG IVP (09:11)
[2023-01-12] MEDS: ondansetron 2 mg/ML SDV 2 mL 4 MG IVP (09:12)
[2023-01-12 09:16] LABS: Adenovirus Not Detected (NOT DETECT); Chlamydia Pneumoniae Not Detected (NOT DETECT); Coronavirus 229E,HKU1,NL63,OC4 Not Detected (NOT DETECT); Human Metapneumovirus Not Detected (NOT DETECT); Human Rhinovirus/Enterovirus Not Detected (NOT DETECT); Influenza A Not Detected (NOT DETECT); Influenza A H1 Not Detected (NOT DETECT); Influenza A H1-2009 Not Detected (NOT DETECT); Influenza A H3 Not Detected (NOT DETECT); Influenza B Not Detected (NOT DETECT); Mycoplasma Pneumoniae Not Detected (NOT DETECT); Parainfluenza Virus Type 1 Not Detected (NOT DETECT); Parainfluenza Virus Type 2 Not Detected (NOT DETECT); Parainfluenza Virus Type 3 Not Detected (NOT DETECT); Parainfluenza Virus Type 4 Not Detected (NOT DETECT); Respiratory Syncytial Virus A Not Detected (NOT DETECT); Respiratory Syncytial Virus B Not Detected (NOT DETECT); SARS-COV-2 Not Detected (NOT DETECT)
[2023-01-12 10:07] LABS: Influenza A Not Detected (NOT DETECT); Influenza A H1 Not Detected (NOT DETECT); Influenza A H1-2009 Not Detected (NOT DETECT); Influenza A H3 Not Detected (NOT DETECT); Influenza B Not Detected (NOT DETECT); Results from Genmark
--- NOTE | 2023-01-12 10:45 | P.HP_ITS ---
Providers/Chief Complaint Admitting Physician: Augustine Tolentino MD Primary Care Provider: Jeanine Solares MD Chief Complaint: WEAKNESS/FALL History of Present Illness Seema Del Rosario is a 67 year old female presenting to the emergency department after 2 falls occurring this morning. She attributes them to weakness. She denies any significant syncope. She has been ill lately in the last several days with fever up to 103 ?F. She reports some shortness of breath, but this is baseline according to her. She states the real problem is erythema in her left lower extremity which appears to be going up her leg. She has had sores on both legs for quite some time. No nausea, or vomiting. She has previously had workup on her lower extremities during starting some peripheral arterial disease as well as venous stasis. Review of Systems General: Reports: 10 or more systems reviewed and unremarkable except in HPI and below Card: Reports: swelling of feet/ankles; Denies: chest pain Resp: Reports: dyspnea; Denies: productive cough or non-productive cough GI: Denies: abdominal pain, nausea, vomiting, hematochezia or melena Medications/Allergies Home Medications Medication Instructions Recorded Confirmed Last Taken Type allopurinol 100 mg tablet 100 mg PO DAILY@0704/25/19 01/12/23 01/11/23 History aspirin 325 mg tablet 325 mg PO DAILY@69904/25/19 01/12/23 01/11/23 History clonidine HCl 0.1 mg tablet 0.1 mg PO Q8H 04/25/19 01/12/23 01/11/23 History gabapentin 300 mg capsule 300 mg PO TID@07,12,19 04/25/19 01/12/23 01/11/23 History isosorbide mononitrate 60 mg 90 mg PO DAILY@0704/25/19 01/12/23 01/11/23 History tablet,extended release 24 hr polyethylene glycol 3350 17 17 g PO DAILY PRN Constipation 04/25/19 01/12/23 11/13/22 05:00 History gram/dose oral powder simvastatin 10 mg tablet 10 mg PO DAILY@219904/25/19 01/12/23 01/11/23 History amitriptyline 25 mg tablet 25 mg PO BEDTIME@219909/05/19 01/12/23 01/11/23 History insulin degludec 100 unit/mL (3 42 unit SUBCUT BID 09/06/20 01/12/23 11/12/22 20:00 History mL) subcutaneous pen (Tresiba 21 FlexTouch U-100 insulin) insulin lispro 100 unit/mL 30 unit SUBCUT TID 07/30/21 01/12/23 11/12/22 20:00 History subcutaneous pen (Humalog KwikPen 16 (U-100) Insulin) tiotropium 2.5 mcg-olodaterol 2.5 2 puff inhalation DAILY@07 #4 grams 06/16/22 01/12/23 01/11/23 Rx mcg/actuation mist for inhalation (Stiolto Respimat) Engineer brace #1 ea 08/18/22 01/12/23 11/13/22 05:00 Rx tramadol 50 mg tablet 50 mg PO BID PRN Pain 09/02/22 01/12/23 11/13/22 05:00 History pentoxifylline 400 mg 400 mg PO TID #90 tabs 09/17/22 01/12/23 01/11/23 Rx tablet,extended release duloxetine 30 mg capsule,delayed 30 mg PO QAM 10/15/22 01/12/23 01/11/23 History release pantoprazole 40 mg tablet,delayed 40 mg PO QAM 10/15/22 01/12/23 01/11/23 History release amlodipine 10 mg tablet 10 mg PO QAM 01/12/23 01/12/23 01/11/23 History bumetanide 1 mg tablet 1 mg PO QAM 01/12/23 01/12/23 01/11/23 History dapagliflozin propanediol 10 mg 10 mg PO QAM 01/12/23 01/12/23 01/11/23 History tablet (Farxiga) ergocalciferol (vitamin D2) 1,250 50,000 unit PO Q7D 01/12/23 01/12/23 01/08/23 History mcg (50,000 unit) capsule Allergies Allergy/AdvReac Type Severity Reaction Status Date / Time anastrozole Allergy ALGY-Joint Verified 01/12/23 08:34 Pain PFSH Acute PFSH: Medical History Anemia Atherosclerosis of coronary artery of [place] heart without angina pectoris Atrial fibrillation, chronic Chronic obstructive pulmonary disease Chronic venous insufficiency CKD (chronic kidney disease) Diabetes Diastolic heart failure History of breast cancer Hypertension Leg pain Lower extremity edema Peripheral arterial disease Screen for colon cancer Surgical History History of carpal tunnel release of both wrists History of colonoscopy with polypectomy (~08/2019) dr. zacarias [facility] [place]. History of coronary angioplasty with insertion of stent History of coronary artery balloon dilation History of esophagogastroduodenoscopy (EGD) (~08/2019) dr. zacarias [facility] [place]. History of lumpectomy Family History Father CAD (coronary artery disease), Onset Age: 50 Cancer Diabetes Hyperlipidemia Hypertension Lung disease Denies family history of Clotting disorder Dementia Psychiatric illness Chronic kidney disease (CKD) Suicide Anesthesia complication Bleeding disorder Stroke Social History Smoking and tobacco/nicotine status: former use of tobacco/nicotine Quit status (tobacco/nicotine): has quit using Year quit tobacco: 2016 - 2PPD x 40 Years Alcohol intake: never Substance/Drug Use: never Lives independently: Yes Household members: spouse Marital status: Current occupational status: retired Do you think of yourself as: Straight/Heterosexual Current gender identity: Female Vitals/I&O/Wt Last Vital Signs Temp 99.1 F 01/12/23 06:42 Pulse 88 01/12/23 10:05 Resp 22 H 01/12/23 10:05 BP 221/73 01/12/23 10:05 Pulse Ox 76 L 01/12/23 10:05 O2 Del Method Room Air 01/12/23 07:01 01/11/23 01/12/23 01/12/23 22:59 06:59 14:59 Intake Total 50 / 50 Output Total 600 / 600 Balance -550 / -550 Weight last 48 hrs Weight 136.078 kg Physical Exam Narrative: General exam is white female, complaining of left lower extremity pain HEENT: Atraumatic normocephalic. Pupils equally round. Oropharynx clear. Neck is supple no lymphadenopathy thyromegaly Cardiovascular regular rate and rhythm, no murmur Lungs clear Abdomen is soft positive bowel sounds, no obvious organomegaly Extremities. Both lower extremities with some wound breakdown laterally. On the left, at the ankle there is also what appears to be a vascular ulcer. On the lateral calf on the left side, there is erythema proceeding towards the knee with increased warmth. Skin see findings above Neuro no obvious focal deficits Urinary Catheter Management: [place]: Cath Placed During This Visit: yes Urinary Catheter Date of Insertion: 01/12/23 Urinary Catheter Time of Insertion: 07:30 Data 01/12/23 06:50 01/12/23 06:50 Other Labs: Chest x-ray with no infiltrate. I reviewed Head CT no acute changes I reviewed this as well Multiple x-rays done of the lower extremity demonstrating no obvious acute fractures, question old fracture Blood cultures were drawn EKG reviewed, demonstrates sinus rhythm, normal axis, right bundle branch block Echo done earlier this month demonstrates aortic sclerosis, 2/4 diastolic dysfunction, preserved EF Micro: Microbiology 01/12/23 07:09 Blood Culture - Preliminary Blood SPECIMEN COLLECTED 01/12/23 06:50 Blood Culture - Preliminary Blood SPECIMEN COLLECTED A&P Assessment and plan (1) Cellulitis: Patient with acute cellulitis Continue vancomycin and Zosyn CBC, CMP daily to review for infection response, monitor for toxicity in this patient with chronic kidney disease with acute insufficiency Await blood cultures Pain control (2) Chronic venous insufficiency: Wound care will be consulted Check venous duplex (3) Peripheral arterial disease: She has significant peripheral vascular disease, but does have collaterals. Aggressive risk factor modification was recommended on recent angiogram (4) Chronic obstructive pulmonary disease: DuoNeb every 6 hours, budesonide twice daily (5) CKD (chronic kidney disease): Patient with acute kidney injury, superimposed on chronic kidney disease Review daily with lab (6) Diabetes: Sliding scale insulin Continue long-acting insulin Plan History of mechanical fall. Fall precautions. Likely related to illness. Full code SCDs contraindicated Lovenox for DVT prophylaxis Attestations Medical Necessity Statement*: Will require greater than 2 midnight stay for evaluation and treatment of acute cellulitis Diagnoses Cellulitis L03.90 Chronic venous insufficiency I87.2 Peripheral arterial disease I73.9 Chronic obstructive pulmonary disease J44.9 CKD (chronic kidney disease) N18.9 Diabetes E11.9 Time Spent (min) 47
--- NOTE | 2023-01-12 10:47 | USCV_ITS ---
Seema Del Rosario Age: 67 Gender: F : 1955 Exam Date: 01/12/2023 11:44 Ordering Phys: Augustine Tolentino MD Technologist: Sebastián Bowling Exam [place]: [facility] [place] Indication: lt leg pain and swelling PROCEDURES: Venous duplex imaging was performed in only the left lower extremity. The following venous structures were evaluated: common femoral vein, profunda vein, proximal portion of the greater saphenous vein, superficial femoral vein, and the popliteal vein. In addition, the posterior tibial and peroneal trunk were evaluated. FINDINGS: Normal 2-D Doppler and augmentation and compressibility throughout the lower extremity venous structures. Additional imaging through the proximal calf veins also reveals no thrombus. Limited evaluation of the greater saphenous vein is patent with no thrombus. CONCLUSIONS No DVT left lower extremity. Dr. Geeta Garrett DO (Electronically Signed) Final Date: 12 January 2023 13:09 S
[2023-01-12 11:43] LABS: Glucose Point of Care 147 mg/dL (70-110)
[2023-01-12] MEDS: HYDROcodone-acetaminophen 5-325 mg Tablet 1 TAB PO (15:32)
[2023-01-12] MEDS: ipratropium-albuterol 3 mL Neb INHALATION ×2 (15:56→20:33)
[2023-01-12 17:51] LABS: Glucose Point of Care 161 mg/dL (70-110)
[2023-01-12] MEDS: enoxaparin 30 mg/0.3 mL Syringe SUBCUT (17:54)
[2023-01-12] MEDS: cloNIDine 0.1 mg Tablet PO ×2 (17:54→22:14)
[2023-01-12] MEDS: sodium chloride 0.9% 1,000 ML 50 ML IV (17:55)
[2023-01-12] MEDS: insulin lispro 100 unit/1 mL SUBCUT ×2 (17:59→22:15)
[2023-01-12] MEDS: gabapentin 300 mg Capsule PO (17:59)
[2023-01-12] MEDS: budesonide 0.5 mg/2 mL Neb INHALATION (20:33)
--- NOTE | 2023-01-12 20:37 | PC.NURSE ---
wounds to bilat LE, left worse than right, yellow drainage from left leg, open wounds cleaned with NS and dressed with telfa, ABD pad and loose Kerlex, both legs elevated on pillows.
[2023-01-12 21:13] LABS: Glucose Point of Care 261 mg/dL (70-110)
[2023-01-13] VITALS (15 sets, daily range): BP systolic 120–175; BP diastolic 51–84; PULSE 75–92; RESP 16–20; TEMP 36.7–37.5; O2SAT 91–95
[2023-01-13] MEDS: ipratropium-albuterol 3 mL Neb INHALATION ×4 (01:46→19:36)
[2023-01-13] MEDS: vancomycin 1,500 MG/300 ML PIGGYBACK 200 MG IV ×2 (01:54→20:18)
[2023-01-13] MEDS: piperacillin-tazobactam 3.375 GM in sodium chloride 0.9% (plus) 50 ML IV ×3 (05:30→22:43)
[2023-01-13] MEDS: amlodipine 10 mg Tablet PO (06:15)
[2023-01-13] MEDS: bumetanide 1 mg Tablet PO (06:15)
[2023-01-13] MEDS: cloNIDine 0.1 mg Tablet PO ×3 (06:15→23:12)
[2023-01-13] MEDS: duloxetine 30 mg Capsule PO (06:15)
[2023-01-13] MEDS: pantoprazole DR 40 mg Tablet PO (06:15)
[2023-01-13] MEDS: aspirin 325 mg Tablet PO (06:15)
[2023-01-13] MEDS: isosorbide mononitrate ER 60 mg Tablet 90 MG PO (06:15)
[2023-01-13] MEDS: allopurinol 100 mg Tablet PO (06:15)
[2023-01-13] MEDS: gabapentin 300 mg Capsule PO ×3 (06:15→18:09)
[2023-01-13] MEDS: budesonide 0.5 mg/2 mL Neb INHALATION ×2 (07:55→19:36)
[2023-01-13 08:22] LABS: Glucose Point of Care 245 mg/dL (70-110)
[2023-01-13 08:28] LABS: Alanine Aminotransferase 27 U/L (0-33); Albumin Level 2.7 g/dL (3.5-5.2); Alkaline Phosphatase 92 U/L (35-105); Anion Gap 18.5 (5-19); Aspartate Amino Transferase 49 U/L (0-32); Blood Urea Nitrogen 34 mg/dL (8-23); Calcium 8.4 mg/dL (8.5-10.5); Carbon Dioxide 19 mmol/L (22-29); Chloride 99 mmol/L (98-107); Globulin 3.8 g/dL (1.3-4.6); Glomerular Filtration Rate 24.9 mL/min (90-130); Glucose 230 mg/dL (65-115); Osmolality Calculated 289 mOsm/kg (285-295); Potassium 4.5 mmol/L (3.5-5.1); Sodium 132 mmol/L (136-145); Total Bilirubin 0.7 mg/dL (0.15-1.2); Total Protein 6.5 g/dL (6.6-8.7)
[2023-01-13] MEDS: insulin lispro 100 unit/1 mL SUBCUT ×4 (08:49→22:42)
--- NOTE | 2023-01-13 08:55 | P.CONIM_ITS ---
Providers/Reason For Consult 2 Consulting Physician/Specialty*: Maria Del Carmen Fabian, WIRE FENCE BUILDER-BC/Wound Care Reason for Consult*: Wound evaluation and management Requesting Physician: Augustine Tolentino MD Attending Physician: Augustine Tolentino MD Primary Care Provider: Jeanine Solares MD History of Present Illness History of Present Illness Seema Del Rosario is a 67 year old female presents today with wounds to bilateral lateral lower extremities. Ms. Del Rosario was admitted to the Medical/Surgical floor on 01/12/23 after two falls with weakness, fever of 103F and cellulitis to the left lower extremity. Ms. Del Rosario is a patient of the [facility] Outpatient service in [place], [place]. Assessment today reveals a moderate amount of serous drainage from the left lateral wounds. There are two wounds present to the left lateral lower extremity. The proximal wound is more superficial and limited to breakdown of skin. The distal wound is down to the adipose layer. There is moderate erythema to the left lower extremity. The right lateral leg also has a wound present that is limited to breakdown of skin. No curette debridement performed. I recommend using Silvercell to both left lateral wounds due to the amount of drainage. May cover with ABD , Kerlix and tape. I recommend hydrofera blue to the right lateral leg wound. May cover with kerlix and tape. I recommend daily dressing changes, may change PRN if saturated. She may shower with no wound dressings. Her bilateral lower extremities are edematous. She is encouraged to elevate her legs as much as possible. I will follow while she is in the hospital. I do recommend she follow up with wound care at discharge. Review of Systems 2 General: Reports: 10 or more systems reviewed and unremarkable except in HPI and below Card: Reports: swelling of feet/ankles; Denies: chest pain Resp: Reports: dyspnea; Denies: productive cough or non-productive cough GI: Denies: abdominal pain, nausea, vomiting, hematochezia or melena Medications/Allergies Home Medications Medication Instructions Recorded Confirmed Last Taken Type allopurinol 100 mg tablet 100 mg PO DAILY@0700 04/25/19 01/12/23 01/11/23 History aspirin 325 mg tablet 325 mg PO DAILY@0700 04/25/19 01/12/23 01/11/23 History clonidine HCl 0.1 mg tablet 0.1 mg PO Q8H 04/25/19 01/12/23 01/11/23 History gabapentin 300 mg capsule 300 mg PO TID@07,12,19 04/25/19 01/12/23 01/11/23 History isosorbide mononitrate 60 mg 90 mg PO DAILY@69904/25/19 01/12/23 01/11/23 History tablet,extended release 24 hr polyethylene glycol 3350 17 17 g PO DAILY PRN Constipation 04/25/19 01/12/23 11/13/22 05:00 History gram/dose oral powder simvastatin 10 mg tablet 10 mg PO DAILY@219904/25/19 01/12/23 01/11/23 History amitriptyline 25 mg tablet 25 mg PO BEDTIME@219909/05/19 01/12/23 01/11/23 History insulin degludec 100 unit/mL (3 42 unit SUBCUT BID 09/06/20 01/12/23 11/12/22 20:00 History mL) subcutaneous pen (Tresiba 21 FlexTouch U-100 insulin) insulin lispro 100 unit/mL 30 unit SUBCUT TID 07/30/21 01/12/23 11/12/22 20:00 History subcutaneous pen (Humalog KwikPen 16 (U-100) Insulin) tiotropium 2.5 mcg-olodaterol 2.5 2 puff inhalation DAILY@07 #4 grams 06/16/22 01/12/23 01/11/23 Rx mcg/actuation mist for inhalation (Stiolto Respimat) Tobacco Stemmer brace #1 ea 08/18/22 01/12/23 11/13/22 05:00 Rx tramadol 50 mg tablet 50 mg PO BID PRN Pain 09/02/22 01/12/23 11/13/22 05:00 History pentoxifylline 400 mg 400 mg PO TID #90 tabs 09/17/22 01/12/23 01/11/23 Rx tablet,extended release duloxetine 30 mg capsule,delayed 30 mg PO QAM 10/15/22 01/12/23 01/11/23 History release pantoprazole 40 mg tablet,delayed 40 mg PO QAM 10/15/22 01/12/23 01/11/23 History release amlodipine 10 mg tablet 10 mg PO QAM 01/12/23 01/12/23 01/11/23 History bumetanide 1 mg tablet 1 mg PO QAM 01/12/23 01/12/23 01/11/23 History dapagliflozin propanediol 10 mg 10 mg PO QAM 01/12/23 01/12/23 01/11/23 History tablet (Farxiga) ergocalciferol (vitamin D2) 1,250 50,000 unit PO Q7D 01/12/23 01/12/23 01/08/23 History mcg (50,000 unit) capsule Allergies Allergy/AdvReac Type Severity Reaction Status Date / Time anastrozole Allergy ALGY-Joint Verified 01/12/23 08:34 Pain Current Medications Generic Name Dose Route Start Last Admin Trade Name Freq PRN Reason Stop Dose Admin Albuterol/Ipratropium 3 ml 01/12/23 20:00 01/13/23 01:46 Ipratropium-Albuterol 3 Ml Neb INHALATION 3 ml Q6H.RESP BRIGITTE Administration Budesonide 0.5 mg 01/12/23 20:00 01/12/23 20:33 Budesonide 0.5 Mg/2 Ml Neb INHALATION 0.5 mg BID.RESPIRATORY BRIGITTE Administration Clonidine HCl 0.1 mg 01/12/23 15:12 01/12/23 22:14 Clonidine 0.1 Mg Tablet PO 0.1 mg Q8H BRIGITTE Administration Enoxaparin Sodium 30 mg 01/12/23 15:12 01/12/23 17:54 Enoxaparin 30 Mg/0.3 Ml Syringe SUBCUT 30 mg Q24H BRIGITTE Administration Gabapentin 300 mg 01/12/23 15:12 01/12/23 17:59 Gabapentin 300 Mg Capsule PO 300 mg TID@07,12,19 BRIGITTE Administration Piperacillin Sod/Tazobactam 50 mls @ 12.5 mls/hr 01/12/23 21:00 01/13/23 01:53 Sod 3.375 gm/ Sodium Chloride IV Infused Q8H BRIGITTE Infusion Protocol As Directed Sodium Chloride 1,000 mls @ 50 mls/hr 01/12/23 15:12 01/12/23 17:55 Sodium Chloride 0.9% IV 50 mls/hr .Q20H BRIGITTE Administration Vancomycin/PEG/NADA/Lysine/Water 1,500 mg in 300 mls @ 200 mls/hr 01/13/23 02:00 01/13/23 01:54 Vancocin IV 200 mls/hr Q18H BRIGITTE Administration Insulin Human Lispro 0 unit 01/12/23 15:12 01/13/23 08:49 Insulin Lispro 100 Unit/1 Ml SUBCUT 6 unit WM&BEDTIME BRIGITTE Administration Protocol Non-Formulary Medication 42 unit 01/12/23 18:00 01/13/23 08:50 Insulin Degludec [Tresiba Flextouch U-100] SUBCUT Not Given BID BRIGITTE Non-Formulary Medication 400 mg 01/12/23 15:12 01/13/23 08:50 Pentoxifylline PO Not Given TID BRIGITTE PFSH Acute 2 PFSH: Medical History CKD (chronic kidney disease) Atherosclerosis of coronary artery of [place] heart without angina pectoris Peripheral arterial disease Lower extremity edema Leg pain Chronic venous insufficiency Chronic obstructive pulmonary disease Atrial fibrillation, chronic Diastolic heart failure Anemia Screen for colon cancer History of breast cancer Diabetes Hypertension Surgical History History of esophagogastroduodenoscopy (EGD) (~08/2019) dr. zacarias [facility] [place]. History of colonoscopy with polypectomy (~08/2019) dr. zacarias [facility] [place]. History of carpal tunnel release of both wrists History of coronary angioplasty with insertion of stent History of coronary artery balloon dilation History of lumpectomy Family History Father CAD (coronary artery disease), Onset Age: 50 Cancer Diabetes Hyperlipidemia Hypertension Lung disease Denies family history of Clotting disorder Dementia Psychiatric illness Chronic kidney disease (CKD) Suicide Anesthesia complication Bleeding disorder Stroke Social History Smoking and tobacco/nicotine status: former use of tobacco/nicotine Quit status (tobacco/nicotine): has quit using Year quit tobacco: 2016 - 2PPD x 40 Years Alcohol intake: never Substance/Drug Use: never Lives independently: Yes Household members: spouse Marital status: Current occupational status: retired Do you think of yourself as: Straight/Heterosexual Current gender identity: Female Vitals/I&O/Wt Last Vital Signs Temp 99.5 F 01/13/23 00:00 Pulse 75 01/13/23 01:51 Resp 16 01/13/23 01:46 BP 120/62 01/13/23 00:00 Pulse Ox 95 01/13/23 01:46 O2 Del Method Nasal Cannula 01/13/23 01:46 O2 Flow Rate 2 01/13/23 01:46 01/12/23 01/13/23 01/13/23 22:59 06:59 14:59 Intake Total 820 / 870 50 / 920 Output Total 500 / 1100 Balance 320 / -230 50 / -180 Weight last 48 hrs Weight 136.078 kg Weight 136.078 kg Physical Exam 2 Narrative: General exam is white female, complaining of some thigh pain Neck is supple no lymphadenopathy thyromegaly Cardiovascular regular rate and rhythm, no murmur Lungs clear Abdomen is soft positive bowel sounds, no obvious organomegaly Skin: WOUNDS: Yes wounds noted (Bilatral lower extremity lateral, left proximal and distal) bed, drainage serosanguineous, margins well defined, without odor and open Urinary Catheter Management: [place]: Cath Placed During This Visit: yes Reason for Continuing Indwelling Catheter: Other Urinary Catheter Date of Insertion: 01/12/23 Urinary Catheter Time of Insertion: 07:30 Data 01/13/23 06:05 01/13/23 06:05 Micro: Microbiology 01/12/23 07:09 Blood Culture - Preliminary Blood NEGATIVE TO DATE 01/12/23 06:50 Blood Culture - Preliminary Blood NEGATIVE TO DATE A&P Assessment and plan (1) Venous ulcer of right leg: Fairly superficial wound to Right lateral lower extremity 6.5x4x0.1cm Daily dressing changes: Hydrofera blue with kerlix, secure with tape. (2) Venous stasis ulcer of left lower extremity: Proximal wound to Left lateral lower extremity, fairly superficial. 10.5x11x0.2cm Daily dressing changes: see orders Distal wound to the left lateral lower extremity, to the adipose layer 4.5x2.0x0.3cm Daily dressing changes: see orders Consult Attestations 2 Medical Necessity Statement: Wound Care evaluation and management of cellulitis to left lower extremity wounds and right lower extremity wound. Time Spent in Patient Care: Greater than 35 minutes (>than 50% of time spent in counselling and/or direct pt care on unit) . Coding Level of Care Code 28726 Straight Forward MDM and Straight Forward Time for a total of 45 minutes, includes reviewing past or interval history, examining/interviewing patient, placing orders, updating patient/family/other support, discussing plan of care with staff, communicating with other healthcare providers, documenting encounter and coordinating care Other Coding Information Focused coding review requested Prolonged care (total time indicated above or notated here) Diagnoses Venous ulcer of right leg I83.019; L97.919 Venous stasis ulcer of left lower extremity I83.029; L97.929 Time Spent (min) 45 Wound Orders Wound Number 1: Proximal wound to Left lateral lower extremity fairly superfical Does Wound require Debridement?: No Duration: 14 Days Dressing change frequency: Daily and Other (PRN if saturated ) Wound Cleansing: Saline Primary Wound Care Dressing: Silvercell Secondary Wound Care Dressing: ABD , Kerlix and secure with tape Bathing/Showering/Hygiene: May shower without wound dressing Off-Loading: Turn and reposition every 2 hours Edema Control: Elevate legs to heart level for 30 mins daily and/or when sitting and Avoid standing for long periods of time Wound Number 2: Distal wound to left lateral lower extremity down to adipose layer Does Wound require Debridement?: No Duration: 14 Days Dressing change frequency: Daily Wound Cleansing: Saline Primary Wound Care Dressing: Silvercell Secondary Wound Care Dressing: ABD , Kerlix and secure with tape Bathing/Showering/Hygiene: May shower without wound dressing Off-Loading: Turn and reposition every 2 hours Edema Control: Elevate legs to heart level for 30 mins daily and/or when sitting and Avoid standing for long periods of time Wound Number 3: Right lateral venous ulcer, fairly superficial Does Wound require Debridement?: No Duration: 14 Days Dressing change frequency: Daily Wound Cleansing: Saline Primary Wound Care Dressing: Hydrofera Blue Secondary Wound Care Dressing: Kerlix , secure with tape Bathing/Showering/Hygiene: May shower without wound dressing Off-Loading: Turn and reposition every 2 hours Edema Control: Elevate legs to heart level for 30 mins daily and/or when sitting and Avoid standing for long periods of time
[2023-01-13 09:17] LABS: Creatine Phosphokinase 2462 U/L (26-192)
[2023-01-13 09:19] LABS: Basophils # 0.1 10^3/uL (0.0-0.1); Basophils % 0.3 %; Eosinophils % 0.1 %; Hematocrit 32.7 % (36-47); Lymphocytes # 1.5 10^3/uL (0.8-4.8); Lymphocytes % 6.7 %; Mean Corpuscular HGB Conc 29.1 g/dL (30-55); Mean Corpuscular Hemoglobin 28.4 pg (27-33); Mean Corpuscular Volume 97.9 fl (85-98); Mean Platelet Volume 9.9 fL (7.4-10.4); Monocytes % 4.6 %; Neutrophils # 19.85 10^3/uL (1.8-7.7); Neutrophils % 87.7 %; Nucleated Red Blood Cells % 0 %; Platelet Count 251 10^3/cmm (157-399); Red Blood Count 3.34 10^6/uL (3.85-5.65); Red Cell Distribution Width 14.4 % (12.1-15.1); White Blood Count 22.63 10^3/uL (3.29-11.43)
--- NOTE | 2023-01-13 10:08 | PC.CHAP ---
Pastoral Care Encounter/Spiritual Assessment Type of Contact [] Declined recruiting coordinator visit [] Patient/Family/Request visit [] Outpatient visit [] Follow-up visit [] Physician referral [] Code/Alert [x] Routine visit [] Staff referral [] Actively dying [] Patient sleeping [x] Family support [] [] Out of room [] Palliative care [] [] Receiving care in room [] Pre-surgical visit [] Trauma [] Long length of stay [] ICU visit [] Other: Relational/Emotional Strength [x] Patient feels connected with others/family/visitors/staff [] Distress [] Loneliness/isolation [] Abandonment Spirituality of Patient [x] Person of Rachel [] Attends Congregational of their Rachel [x] Believes in Prayer [] Reads Bible or Faith materials [] There are Spiritual issues to be addressed Brick Pointer Interventions [x] Prayer [x] Active listening [] Non-anxious presence [x] Spiritual/emotional support [] Crisis/trauma care [] Spiritual counseling [] Bereavement support [] Provided bereavement packet [] Provided Bible/devotional materials [] Provided toy/stuffed animal, coloring book to patient or family member [] Provided Communion [] Anointing/[place] [] Salvation [x] Completed spiritual assessment [] Other: Impact on Illness or Injury [] Angry [] Fearful [] Anxious [] Often cries [] Exhaustion [] Unable to work [] Unable to attend holiness [] Unable to walk/stand [] Unable to read [] Unable to drive [] Unable to eat/drink [] Unable to sleep [] Unable to be with family [] Patient intubated [] Other: Summary Time spent with patient 5 min
[2023-01-13 12:35] LABS: Glucose Point of Care 272 mg/dL (70-110)
[2023-01-13] MEDS: sodium chloride 0.9% 1,000 ML 50 ML IV (12:55)
--- NOTE | 2023-01-13 13:20 | CT_ITS ---
WS: [id number] NONCONTRAST CT OF THE LEFT LOWER EXTREMITY TECHNIQUE: Noncontrast CT LEFT lower extremity with coronal and sagittal reformatted images. CLINICAL INFORMATION: worsening left leg swelling, infection. Possible abscess COMPARISON: None. DLP: 800.[address] scans at [facility] use at least one of these dose optimization techniques: automated e xposure control; mA and/or kV adjustment per patient size (includes targeted exams where dose is matc hed to clinical indication); or iterative reconstruction. FINDINGS: Advanced tricompartmental arthritis LEFT knee with hypertrophic changes along the joint line. Diffuse soft tissue and subcutaneous edema. Vascular calcification. Hypertrophic patella. Tiny suprapatellar effusion. Diffuse soft tissue edema worse involving the mid to distal LEFT lower e xtremity extending to the foot suspicious for cellulitis. No evidence of drainable abscess or fluid c ollection. No evidence of osteomyelitis. IMPRESSION: 1. Diffuse soft tissue edema LEFT lower leg suspicious for cellulitis with skin thickening. 2. No evidence of drainable abscess or fluid collection. 3. No evidence of osteomyelitis.
--- NOTE | 2023-01-13 13:24 | P.PN_ITS ---
Subjective 2 Subjective: Seema reports her thigh feels like there is a little bit of pressure. She otherwise does not really feel any pain distally. She still able to move her distal foot. She has significant neuropathy which limits her feeling. No fever overnight. Medications: Reviewed: Yes Vitals/I&O/Wt Last Vital Signs Temp 98.1 F 01/13/23 08:00 Pulse 82 01/13/23 08:00 Resp 18 01/13/23 08:00 BP 136/59 01/13/23 08:00 Pulse Ox 94 01/13/23 08:00 O2 Del Method Nasal Cannula 01/13/23 08:00 O2 Flow Rate 2 01/13/23 07:55 01/12/23 01/13/23 01/13/23 22:59 06:59 14:59 Intake Total 820 / 870 50 / 920 1070 / 1070 Output Total 500 / 1100 Balance 320 / -230 50 / -180 1070 / 1070 Weight last 48 hrs Weight 136.078 kg Weight 136.078 kg Physical Exam 2 Narrative: General exam is white female, complaining of some thigh pain Neck is supple no lymphadenopathy thyromegaly Cardiovascular regular rate and rhythm, no murmur Lungs clear Abdomen is soft positive bowel sounds, no obvious organomegaly Extremities. Both lower extremities with some wound breakdown laterally. On the left, at the ankle there is also what appears to be a vascular ulcer. On the lateral calf on the left side, there is erythema proceeding towards the knee with increased warmth. This involves the medial foot. Cap refill is still present in the toes as well as movement. Her calf seems bigger today. Urinary Catheter Management: [place]: Cath Placed During This Visit: yes Reason for Continuing Indwelling Catheter: Other Urinary Catheter Date of Insertion: 01/12/23 Urinary Catheter Time of Insertion: 07:30 Data 01/13/23 06:05 01/13/23 06:05 Micro: Microbiology 01/12/23 07:09 Blood Culture - Preliminary Blood NEGATIVE TO DATE 01/12/23 06:50 Blood Culture - Preliminary Blood NEGATIVE TO DATE A&P Assessment and plan (1) Cellulitis: Patient with acute cellulitis Continue vancomycin and Zosyn CBC, CMP daily to review for infection response, monitor for toxicity in this patient with chronic kidney disease with acute insufficiency Blood cultures negative to date White blood cell count improving However, calf enlarging and some involvement of the foot. She may not be able to since development of abscess, or even compartment syndrome. Will go ahead and obtain CT scan of leg without contrast initially. (2) Chronic venous insufficiency: Wound care has been consulted Venous duplex negative (3) Peripheral arterial disease: She has significant peripheral vascular disease, but does have collaterals. Aggressive risk factor modification was recommended on recent angiogram (4) Chronic obstructive pulmonary disease: DuoNeb every 6 hours, budesonide twice daily (5) CKD (chronic kidney disease): Patient with acute kidney injury, superimposed on chronic kidney disease Creatinine slightly worse Increase fluids (6) Diabetes: Sliding scale insulin Continue long-acting insulin Plan History of mechanical fall. Fall precautions. Likely related to illness. rhabdomyolysis. CK worse. Increase fluids. Creatinine slightly worse. Repeat CK and creatinine tomorrow Full code SCDs contraindicated Lovenox for DVT prophylaxis Attestations 2 Medical Necessity Statement*: Needs continued hospitalization for IV antibiotics in this patient with worsening cellulitis and need for reevaluation with CT Diagnoses Cellulitis L03.90 Chronic venous insufficiency I87.2 Peripheral arterial disease I73.9 Chronic obstructive pulmonary disease J44.9 CKD (chronic kidney disease) N18.9 Diabetes E11.9 Time Spent (min) 38
[2023-01-13] MEDS: oxyCODONE 5 mg IR Tab/Cap PO ×2 (14:47→23:13)
[2023-01-13] MEDS: enoxaparin 30 mg/0.3 mL Syringe SUBCUT (16:22)
[2023-01-13 17:27] LABS: Glucose Point of Care 244 mg/dL (70-110)
[2023-01-13 21:23] LABS: Glucose Point of Care 260 mg/dL (70-110)
[2023-01-14] VITALS (19 sets, daily range): BP systolic 110–167; BP diastolic 64–93; PULSE 80–100; RESP 17–26; TEMP 36.9–37.9; O2SAT 89–98
[2023-01-14] MEDS: ipratropium-albuterol 3 mL Neb INHALATION ×4 (02:43→21:51)
[2023-01-14] MEDS: piperacillin-tazobactam 3.375 GM in sodium chloride 0.9% (plus) 50 ML IV ×3 (04:37→20:31)
--- NOTE | 2023-01-14 04:39 | XRR_ITS ---
PROCEDURE INFORMATION: Exam: XR Chest Exam date and time: 01/14/2023 5:49 AM Age: 67 years old Clinical indication: Shortness of breath; Additional info: Low oxygen sats TECHNIQUE: Imaging protocol: Radiologic exam of the chest. Views: 1 view. COMPARISON: CR XR chest 1V portable [id number] 01/12/2023 7:11 AM FINDINGS: Lungs: Mild pulmonary vascular congestion. Pleural spaces: Unremarkable. No pleural effusion. No pneumothorax. Heart/Mediastinum: Cardiomegaly. Bones/joints: Unremarkable. XR/XR chest 1V portable [id number] IMPRESSION: Cardiomegaly with mild congestion.
[2023-01-14 04:56] LABS: ABG PCO2 36.4 mmHg (35-45); Alveolar-Arterial Oxygen Gradi 5.8 mmHg (5-10); Arterial Blood Gas Hematocrit 28.6 % (37-47); Base Excess ABG -2.1 mmol/L (-2.0-2.0); Blood Gas Allen Test Pos; Blood Gas Sample Site Radial, right; Blood Gas Sample Type Arterial; HCO3 ABG 22.4 mmol/L (22-26); HGB O2 Sat 89.3 % (95-100); Ionized Calcium Level - ABG 1.1 mmol/L (1.1-1.4); Methemoglobin 0.3 % (0.4-1.5); Oxygen Device BIPAP; Oxygen Saturation ABG 90.5; PO2 ABG 59.9 mmHg (80.0-100.0); Potassium Level - ABG 4.2 mmol/L (3.5-5.0); Total Hemoglobin 9.3 g/dL (12-16)
[2023-01-14] MEDS: isosorbide mononitrate ER 60 mg Tablet 90 MG PO (06:17)
[2023-01-14] MEDS: aspirin 325 mg Tablet PO (06:17)
[2023-01-14] MEDS: gabapentin 300 mg Capsule PO ×3 (06:17→19:47)
[2023-01-14] MEDS: amlodipine 10 mg Tablet PO (06:17)
[2023-01-14] MEDS: allopurinol 100 mg Tablet PO (06:17)
[2023-01-14] MEDS: bumetanide 1 mg Tablet PO (06:21)
[2023-01-14] MEDS: cloNIDine 0.1 mg Tablet PO ×3 (06:21→22:38)
[2023-01-14] MEDS: pantoprazole DR 40 mg Tablet PO (06:21)
[2023-01-14] MEDS: oxyCODONE 5 mg IR Tab/Cap PO ×3 (06:22→19:47)
[2023-01-14] MEDS: duloxetine 30 mg Capsule PO (06:22)
[2023-01-14] MEDS: sodium chloride 0.9% 1,000 ML 50 ML IV (06:23)
[2023-01-14 06:41] LABS: Basophils # 0.1 10^3/uL (0.0-0.1); Basophils % 0.3 %; Eosinophils % 0.2 %; Hematocrit 31.6 % (36-47); Lymphocytes % 5.2 %; Mean Corpuscular HGB Conc 30.1 g/dL (30-55); Mean Corpuscular Hemoglobin 28.3 pg (27-33); Monocytes # 0.7 10^3/uL (0.2-0.9); Monocytes % 4.1 %; Neutrophils # 16.35 10^3/uL (1.8-7.7); Neutrophils % 89.7 %; Nucleated Red Blood Cells % 0 %; Platelet Count 262 10^3/cmm (157-399); Red Blood Count 3.36 10^6/uL (3.85-5.65); Red Cell Distribution Width 14.2 % (12.1-15.1); White Blood Count 18.23 10^3/uL (3.29-11.43)
[2023-01-14 07:04] LABS: Alanine Aminotransferase 27 U/L (0-33); Albumin Level 3.1 g/dL (3.5-5.2); Alkaline Phosphatase 117 U/L (35-105); Anion Gap 19.5 (5-19); Aspartate Amino Transferase 32 U/L (0-32); Blood Urea Nitrogen 31 mg/dL (8-23); Calcium 8.5 mg/dL (8.5-10.5); Carbon Dioxide 20 mmol/L (22-29); Chloride 98 mmol/L (98-107); Glomerular Filtration Rate 32.2 mL/min (90-130); Glucose 218 mg/dL (65-115); Osmolality Calculated 289 mOsm/kg (285-295); Potassium 4.5 mmol/L (3.5-5.1); Sodium 133 mmol/L (136-145); Total Protein 6.1 g/dL (6.6-8.7)
[2023-01-14 07:16] LABS: Glucose Point of Care 263 mg/dL (70-110)
[2023-01-14] MEDS: budesonide 0.5 mg/2 mL Neb INHALATION ×2 (07:46→21:51)
--- NOTE | 2023-01-14 07:56 | P.PN_ITS ---
Subjective 2 Subjective: Ms. Del Rosario reports she had a difficult evening last night. She had some desatting in the 80's. She is currently on 5L NC in no distress. Bilateral extremities continue to be edematous more on the left than the right. There is continued erythema to the left lower extremity. Wound drainage is moderate but doing bettter with the silvercell dressing. CT scan yesterday of left lower extremity showed no osteomylitis and no abscess. CT impression is diffuse soft tissue edema LEFT lower leg suspicious for cellulitis with skin thickening.Will continue daily dressing changes and PRN if saturated. Ms. Del Rosario's deconditioning may require more assistance at home at time of discharge. I do think home health would benefit her greatly in the area of wound care and help with dressing changes. Medications: Reviewed: Yes Vitals/I&O/Wt Last Vital Signs Temp 99.7 F H 01/14/23 04:00 Pulse 95 01/14/23 07:48 Resp 18 01/14/23 07:48 BP 150/93 01/14/23 06:21 Pulse Ox 94 01/14/23 07:48 O2 Del Method Nasal Cannula 01/14/23 07:48 O2 Flow Rate 5 01/14/23 07:48 01/13/23 01/14/23 01/14/23 22:59 06:59 14:59 Intake Total 830 / 1950 1223.333 / 3173.333 Output Total 1700 / 1700 Balance 830 / 1950 -476.667 / 1473.333 Weight last 48 hrs Weight 142.456 kg Weight 136.078 kg Physical Exam 2 Narrative: General exam is white female, complaining of some thigh pain Neck is supple no lymphadenopathy thyromegaly Cardiovascular regular rate and rhythm, no murmur Lungs clear Abdomen is soft positive bowel sounds, no obvious organomegaly Skin: WOUNDS: Yes wounds noted (Bilatral lower extremity lateral, left proximal and distal) bed, drainage serosanguineous, margins well defined, without odor and open Urinary Catheter Management: [place]: Cath Placed During This Visit: yes Reason for Continuing Indwelling Catheter: Acute Urinary Retention or Obstruction Urinary Catheter Date of Insertion: 01/12/23 Urinary Catheter Time of Insertion: 07:30 Data 01/14/23 06:00 01/14/23 06:00 Micro: Microbiology 01/12/23 07:09 Blood Culture - Preliminary Blood NEGATIVE TO DATE 01/12/23 06:50 Blood Culture - Preliminary Blood NEGATIVE TO DATE A&P Assessment and plan (1) Venous ulcer of right leg: Fairly superficial wound to Right lateral lower extremity 6.5x4x0.1cm Daily dressing changes: Hydrofera blue with kerlix, secure with tape. (2) Venous stasis ulcer of left lower extremity: Proximal wound to Left lateral lower extremity, fairly superficial. 10.5x11x0.2cm Daily dressing changes: see orders Distal wound to the left lateral lower extremity, to the adipose layer 4.5x2.0x0.3cm Daily dressing changes: see orders Attestations 2 Medical Necessity Statement*: Will require greater than 2 midnight stay for evaluation and treatment of acute cellulitis Time Spent in Patient Care: 16 - 35 minutes (>than 50% of time sp ent in counselling and/or direct pt care on unit) . and Moderate Time for a total of 20 minutes, includes reviewing past or interval history, examining/interviewing patient, counseling patient/family/other support, updating patient/family/other support, discussing plan of care with staff, communicating with other healthcare providers, documenting encounter and coordinating care Other Coding Information Focused coding review requested Diagnoses Venous ulcer of right leg I83.019; L97.919 Venous stasis ulcer of left lower extremity I83.029; L97.929 Time Spent (min) 20 Wound Orders Wound Number 1: Proximal wound to Left lateral lower extremity fairly superfical Does Wound require Debridement?: No Duration: 14 Days Dressing change frequency: Daily and Other (PRN if saturated ) Wound Cleansing: Saline Primary Wound Care Dressing: Silvercell Secondary Wound Care Dressing: ABD , Kerlix and secure with tape Bathing/Showering/Hygiene: May shower without wound dressing Off-Loading: Turn and reposition every 2 hours Edema Control: Elevate legs to heart level for 30 mins daily and/or when sitting and Avoid standing for long periods of time Wound Number 2: Distal wound to left lateral lower extremity down to adipose layer Does Wound require Debridement?: No Duration: 14 Days Dressing change frequency: Daily Wound Cleansing: Saline Primary Wound Care Dressing: Silvercell Secondary Wound Care Dressing: ABD , Kerlix and secure with tape Bathing/Showering/Hygiene: May shower without wound dressing Off-Loading: Turn and reposition every 2 hours Edema Control: Elevate legs to heart level for 30 mins daily and/or when sitting and Avoid standing for long periods of time Wound Number 3: Right lateral venous ulcer, fairly superficial Does Wound require Debridement?: No Duration: 14 Days Dressing change frequency: Daily Wound Cleansing: Saline Primary Wound Care Dressing: Hydrofera Blue Secondary Wound Care Dressing: Kerlix , secure with tape Bathing/Showering/Hygiene: May shower without wound dressing Off-Loading: Turn and reposition every 2 hours Edema Control: Elevate legs to heart level for 30 mins daily and/or when sitting and Avoid standing for long periods of time
[2023-01-14 08:05] LABS: Creatine Phosphokinase 723 U/L (26-192)
--- NOTE | 2023-01-14 09:17 | P.PN_ITS ---
Documented by User: rayna Gupta 01/14/23 11:02 Subjective 2 Subjective: Patient was evaluated this morning while sitting on the side of the bed on 5L/NC. Patient stated she was able to transfer from bed to wheelchair with standby assistance yesterday. Patient/nursing reports event last night with slight respiratory distress, was found to be 82% SpO2. ABG was obtained and was unremarkable. Patient states that she received bad news about a family member going on hospice which increased her anxiety and overall panic. Also at this time, patient complained 10/10 left leg pain and received Dilaudid which corrected pain. Patient does have complaint of left leg pain at this time but more tolerable. Denies any fevers, chills. Medications: Reviewed: Yes Vitals/I&O/Wt Last Vital Signs Temp 99.7 F H 01/14/23 04:00 Pulse 95 01/14/23 07:48 Resp 18 01/14/23 07:48 BP 150/93 01/14/23 06:21 Pulse Ox 94 01/14/23 07:48 O2 Del Method Nasal Cannula 01/14/23 07:48 O2 Flow Rate 5 01/14/23 07:48 01/13/23 01/14/23 01/14/23 22:59 06:59 14:59 Intake Total 830 / 1950 1223.333 / 3173.333 Output Total 1700 / 1700 Balance 830 / 1950 -476.667 / 1473.333 Weight last 48 hrs Weight 142.456 kg Weight 136.078 kg Physical Exam 2 Narrative: General: Alert, able to answer questions appropriately, complaining of left lower extremity pain Neck is supple no lymphadenopathy. Cardiovascular regular rate and rhythm, no murmur Lungs clear to auscultation Abdomen is soft positive bowel sounds, Extremities: Cap refill present, dorsalis pedal bilateral pulses 1+ left lower extremity slightly larger/edematous than right. Some wound breakdown bilaterally lower extremity. Vascular ulcer noted to left ankle. Urinary Catheter Management: [place]: Cath Placed During This Visit: yes Reason for Continuing Indwelling Catheter: Acute Urinary Retention or Obstruction Urinary Catheter Date of Insertion: 01/12/23 Urinary Catheter Time of Insertion: 07:30 Data 01/14/23 06:00 01/14/23 06:00 Other Labs: WBC 18.23, hemoglobin 9.5, hematocrit 31.6, ABG unremarkable, BUN 31, creatinine 1.6, glucose 218, CK 723 Micro: Microbiology 01/12/23 07:09 Blood Culture - Preliminary Blood NEGATIVE TO DATE 01/12/23 06:50 Blood Culture - Preliminary Blood NEGATIVE TO DATE CXR: Radiologist's impression: Cardiomegaly with mild congestion. Other CT: Radiologist's impression: Soft tissue edema left lower leg suspicious for cellulitis, no evidence of abscess, fluid collection, or osteomyelitis. A&P Assessment and plan (1) Cellulitis: Acute cellulitis to left lower extremity, erythema/edema improving. Continue vancomycin and Zosyn CBC and CMP daily to review for infection response. White blood cell count improving. CT bilateral lower extremity: soft tissue edema left lower leg suspicious for cellulitis, no evidence of abscess, fluid collection, or osteomyelitis. (2) Chronic venous insufficiency: Wound care consult. Recommendations appreciated. Hydrofera Blue with Kerlix. (3) Peripheral arterial disease: Continue in-depth conversation with risk factor modification. (4) Chronic obstructive pulmonary disease: DuoNeb every 6 hours Pulmicort twice daily (5) CKD (chronic kidney disease): BUN and creatinine improving. We will discontinue IV fluids today due to chest x-ray revealing mild congestion. (6) Diabetes: Sliding scale insulin Continue long-acting insulin Plan Plan as stated below. We will DC IV fluids at this time due to mild congestion per chest x-ray and mild respiratory distress events overnight. Patient remains on 5L/NC at this time. CK is improving. Wound care per recommendations. CODE STATUS: Full code DVT prophylaxis: Lovenox Coding Level of Care Code 32132 Diagnoses Cellulitis L03.90 Chronic venous insufficiency I87.2 Peripheral arterial disease I73.9 Chronic obstructive pulmonary disease J44.9 CKD (chronic kidney disease) N18.9 Diabetes E11.9 Time Spent (min) 26 Documented by User: Augustine Tolentino MD 01/14/23 11:03 Physical Exam 2 Urinary Catheter Management: [place]: Cath Placed During This Visit: yes Data 01/14/23 06:00 01/14/23 06:00 A&P Assessment and plan (1) Cellulitis: (2) Chronic venous insufficiency: (3) Peripheral arterial disease: (4) Chronic obstructive pulmonary disease: (5) CKD (chronic kidney disease): BUN and creatinine improving. We will discontinue IV fluids today due to chest x-ray revealing mild congestion. BMP in the morning (6) Diabetes: Plan Rhabdomyolysis. Improving. No reason to repeat any further CKs Plan as stated below. We will DC IV fluids at this time due to mild congestion per chest x-ray and mild respiratory distress events overnight. Patient remains on 5L/NC at this time. CK is improving. Wound care per recommendations. CODE STATUS: Full code DVT prophylaxis: Lovenox Attestations 2 Medical Necessity Statement*: Requires continued hospitalization for IV antibiotics related to cellulitis, slowly improve Diagnoses Cellulitis L03.90 Chronic venous insufficiency I87.2 Peripheral arterial disease I73.9 Chronic obstructive pulmonary disease J44.9 CKD (chronic kidney disease) N18.9 Diabetes E11.9 Time Spent (min) 26
--- NOTE | 2023-01-14 10:36 | PC.CHAP ---
Pastoral Care Encounter/Spiritual Assessment Type of Contact [] Declined defensive line coach visit [] Patient/Family/Request visit [] Outpatient visit [] Follow-up visit [] Physician referral [] Code/Alert [] Routine visit [x] Staff referral [] Actively dying [] Patient sleeping [] Family support [] [] Out of room [] Palliative care [] [] Receiving care in room [] Pre-surgical visit [] Trauma [] Long length of stay [] ICU visit [] Other: Relational/Emotional Strength [x] Patient feels connected with others/family/visitors/staff [] Distress [] Loneliness/isolation [] Abandonment Spirituality of Patient [] Person of Rachel [] Attends Restorationism of their Rachel [] Believes in Prayer [] Reads Bible or Yazdanism materials [] There are Spiritual issues to be addressed Household Manager Interventions [x] Prayer [] Active listening [] Non-anxious presence [] Spiritual/emotional support [] Crisis/trauma care [] Spiritual counseling [] Bereavement support [] Provided bereavement packet [] Provided Bible/devotional materials [] Provided toy/stuffed animal, coloring book to patient or family member [] Provided Communion [] Anointing/[place] [] Salvation [] Completed spiritual assessment [] Other: Impact on Illness or Injury [] Angry [] Fearful [] Anxious [] Often cries [] Exhaustion [] Unable to work [] Unable to attend jew [] Unable to walk/stand [] Unable to read [] Unable to drive [] Unable to eat/drink [] Unable to sleep [] Unable to be with family [] Patient intubated [] Other: Summary Time spent with patient 10 min
[2023-01-14] MEDS: insulin lispro 100 unit/1 mL SUBCUT ×4 (10:42→21:21)
[2023-01-14 11:51] LABS: Glucose Point of Care 359 mg/dL (70-110)
--- NOTE | 2023-01-14 14:40 | PC.SOCIAL ---
IMM Update pg 2 of IMM updated and reviewed w/ patient. Copy provided and copy dated, initialed and placed in chart.
[2023-01-14] MEDS: NON-FORMULARY MEDICATION (Pentoxifylline 400 mg tablet extended release) 400 EACH PO ×2 (15:08→22:38)
[2023-01-14] MEDS: vancomycin 1,500 MG/300 ML PIGGYBACK 200 MG IV (15:21)
[2023-01-14] MEDS: enoxaparin 30 mg/0.3 mL Syringe SUBCUT (15:21)
[2023-01-14] MEDS: FUROsemide 10 mg/mL SDV 4mL 40 MG IVP (16:32)
--- NOTE | 2023-01-14 16:39 | ECG_ITS ---
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 Measurements Intervals [place] Rate: 97 P: 48 [place]: 160 QRS: -38 QRSD: 158 T: 29 QT: 373 QTc: 474 Interpretive Statements SINUS RHYTHM LEFT AXIS DEVIATION [QRS AXIS < -30] RIGHT BUNDLE BRANCH BLOCK [120+ ms QRS DURATION, UPRIGHT V1, 40+ ms S IN I/aVL/V4/V5/V6] Compared to ECG 01/12/2023 06:53:18 No significant change Electronically Signed On 01-15-2023 16:39:43 COLD WATER MACHINE OPERATOR by Jessica Conner M.D. [email or web address] [email or web address]. john of [facility] hospital.Kopjra/store/OM/[id number]
[2023-01-14 17:12] LABS: Glucose Point of Care 300 mg/dL (70-110)
[2023-01-14 18:09] LABS: Troponin(5th) Baseline 53 ng/L (0-10)
--- NOTE | 2023-01-14 18:27 | ECG_ITS ---
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 Measurements Intervals [place] Rate: 90 P: 58 [place]: 166 QRS: -28 QRSD: 154 T: 42 QT: 380 QTc: 467 Interpretive Statements SINUS RHYTHM BORDERLINE LEFT AXIS DEVIATION [QRS AXIS < -20] RIGHT BUNDLE BRANCH BLOCK [120+ ms QRS DURATION, UPRIGHT V1, 40+ ms S IN I/aVL/V4/V5/V6] Compared to ECG 01/14/2023 16:39:29 No significant changes Electronically Signed On 01-15-2023 16:57:48 VP OF DIGITAL MARKETING by Jessica Conner M.D. [email or web address] [email or web address] Biznessadena pike medical center.WaterBear Soft/store/[id number]
[2023-01-14 20:51] LABS: Troponin 5 2HR 72.42 ng/L (0-10)
[2023-01-14 21:02] LABS: Troponin 5 2HR Delta 19.42 ABS# (0-10)
[2023-01-14 21:17] LABS: Glucose Point of Care 277 mg/dL (70-110)
[2023-01-14] MEDS: enoxaparin 120 mg/0.8 mL Syringe 110 MG SUBCUT (22:38)
[2023-01-15] VITALS (23 sets, daily range): BP systolic 143–203; BP diastolic 72–105; PULSE 75–126; RESP 18–128; TEMP 36.7–37; O2SAT 91–99
[2023-01-15] MEDS: ipratropium-albuterol 3 mL Neb INHALATION ×4 (01:33→19:54)
--- NOTE | 2023-01-15 02:18 | ECG_ITS ---
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 Measurements Intervals [place] Rate: 124 P: 0 [place]: 0 QRS: -45 QRSD: 158 T: 30 QT: 369 QTc: 532 Interpretive Statements ATRIAL FLUTTER Compared to ECG 01/14/2023 18:27:41 Indeterminate axis now present Sinus rhythm no longer present Electronically Signed On 01-15-2023 16:37:12 HOUSEKEEPING ROOM ATTENDANT by Jessica Conner M.D. [email or web address] hospitalAlmashopping/store/[id number]
[2023-01-15] MEDS: dilTIAZem 5 mg/mL SDV 5 mL IVP (02:31)
--- NOTE | 2023-01-15 02:45 | W.PM.EVENTAC ---
Event Note Event Note: Patient was anxious, was noticing palpitations EKG was requested which showed atrial flutter with RVR heart rate fluctuating 1 30-1 40s She was hypertensive as well Decision was made to give her Cardizem IV push 5 mg and then transfer her to CSU to start Cardizem drip Her EF is preserved, opting for Cardizem at this point She was given therapeutic Lovenox every 24h earlier in the night for her delta troponin, she is already on therapeutic aspirin regimen We will add therapeutic Plavix loading dose and then daily regimen
--- NOTE | 2023-01-15 03:21 | PC.NURSE ---
@0150 during rounding pt HR is 124, contacted hospitalist order for EKG, result was AFlutter/tachy with RVR, Hospitalist notified and order for Cardizem 5 mg IV push X1 ans transfer pt to CSU, pat transferred to CSU @ 3443
[2023-01-15] MEDS: clopidogrel 300 mg Tablet PO (04:06)
[2023-01-15] MEDS: piperacillin-tazobactam 3.375 GM in sodium chloride 0.9% (plus) 50 ML IV ×3 (05:05→21:42)
[2023-01-15] MEDS: allopurinol 100 mg Tablet PO (06:12)
[2023-01-15] MEDS: gabapentin 300 mg Capsule PO ×3 (06:12→21:49)
[2023-01-15 06:13] LABS: Basophils # 0.1 10^3/uL (0.0-0.1); Basophils % 0.4 %; Eosinophils % 0.3 %; Hematocrit 29.2 % (36-47); Lymphocytes # 1.2 10^3/uL (0.8-4.8); Lymphocytes % 9.2 %; Mean Corpuscular HGB Conc 31.2 g/dL (30-55); Mean Corpuscular Hemoglobin 28.6 pg (27-33); Mean Corpuscular Volume 91.8 fl (85-98); Mean Platelet Volume 9.5 fL (7.4-10.4); Monocytes # 0.8 10^3/uL (0.2-0.9); Monocytes % 5.7 %; Neutrophils # 10.96 10^3/uL (1.8-7.7); Neutrophils % 83.5 %; Nucleated Red Blood Cells % 0 %; Platelet Count 247 10^3/cmm (157-399); Red Blood Count 3.18 10^6/uL (3.85-5.65); Red Cell Distribution Width 13.9 % (12.1-15.1); White Blood Count 13.13 10^3/uL (3.29-11.43)
[2023-01-15] MEDS: isosorbide mononitrate ER 60 mg Tablet 90 MG PO (06:13)
[2023-01-15] MEDS: bumetanide 1 mg Tablet PO (06:14)
[2023-01-15] MEDS: pantoprazole DR 40 mg Tablet PO (06:14)
[2023-01-15] MEDS: duloxetine 30 mg Capsule PO (06:15)
[2023-01-15] MEDS: aspirin 325 mg Tablet PO (06:15)
[2023-01-15] MEDS: amlodipine 10 mg Tablet PO (06:15)
[2023-01-15] MEDS: dilTIAZem 100 MG in sodium chloride 0.9% (add-van) 100 ML 18 MG IV (06:26)
[2023-01-15 06:29] LABS: D Dimer 2.83 ug/mLFEU (0-0.59)
--- NOTE | 2023-01-15 06:30 | PC.NURSE ---
Delay in hanging Diltiazem gtt due delay in verification and then order not matching medication in [facility] Medication was hung at 4:15 despite not being able to scan mediaction, confirmed order with and second nurse verification before hanging medication. Tele Pharmacy was called to correct order so that it could be scanned but order was still incorrect and unable to scan. Patient had been titrated up to 15mg/hr by 5am.
[2023-01-15 06:44] LABS: Anion Gap 16.1 (5-19); Blood Urea Nitrogen 35 mg/dL (8-23); Calcium 8.8 mg/dL (8.5-10.5); Carbon Dioxide 21 mmol/L (22-29); Chloride 103 mmol/L (98-107); Glomerular Filtration Rate 40.9 mL/min (90-130); Glucose 228 mg/dL (65-115); Magnesium 2.3 mg/dL (1.7-2.3); NT Pro B Type Natriuretic Pept 7525 pg/mL (0-125); Osmolality Calculated 297 mOsm/kg (285-295); Potassium 4.1 mmol/L (3.5-5.1); Sodium 136 mmol/L (136-145)
--- NOTE | 2023-01-15 07:53 | P.PN_ITS ---
Subjective 2 Subjective: Ms. Del Rosario is now on the Cardiac Stepdown Unit after converting to arrhythmia of atrial fibrillation with RVR last night. She is now on a Cardizem drip with heart rate currrently at 127bpm. She is on the BiPap. She is alert and able to answer questions appropriately. Her bilateral lower extremities are looking improved. Edema and erythema to the lower extremities is reduced noticeably today. We will continue with daily dressing changes and PRN if saturated. Medications: Reviewed: Yes Vitals/I&O/Wt Last Vital Signs Temp 98.2 F 01/15/23 07:40 Pulse 126 H 01/15/23 07:40 Resp 22 H 01/15/23 07:40 BP 145/78 01/15/23 07:40 Pulse Ox 98 01/15/23 07:40 O2 Del Method CPAP 01/15/23 07:40 O2 Flow Rate 5 01/14/23 14:14 FiO2 50 01/15/23 04:00 01/14/23 01/15/23 01/15/23 22:59 06:59 14:59 Intake Total 650 / 1207.5 110 / 1317.5 Output Total 1200 / 1200 1325 / 2525 Balance -550 / 7.5 -1215 / -1207.5 Weight last 48 hrs Weight 142.456 kg Physical Exam 2 Narrative: General: Alert, able to answer questions appropriately Neck is supple no lymphadenopathy. Cardiovascular A Fib rate 127bpm, no murmur Lungs clear to auscultation Abdomen is soft positive bowel sounds, Extremities: Cap refill present, dorsalis pedal bilateral pulses 1+ left lower extremity slightly larger/edematous than right. Edema and erythema noticeably improved. Skin: WOUNDS: Yes wounds noted (Bilatral lower extremity lateral, left proximal and distal) bed, drainage serosanguineous, margins well defined, without odor and open Urinary Catheter Management: [place]: Cath Placed During This Visit: yes Reason for Continuing Indwelling Catheter: Acute Urinary Retention or Obstruction Urinary Catheter Date of Insertion: 01/12/23 Urinary Catheter Time of Insertion: 07:30 Data 01/15/23 06:08 01/15/23 06:08 Micro: Microbiology 01/14/23 11:50 Blood Culture - Preliminary Blood SPECIMEN COLLECTED 01/14/23 12:05 Blood Culture - Preliminary Blood SPECIMEN COLLECTED 01/12/23 07:09 Blood Culture - Preliminary Blood Gram Negative Rods A&P Assessment and plan (1) Venous ulcer of right leg: Fairly superficial wound to Right lateral lower extremity 6.5x4x0.1cm Daily dressing changes: Hydrofera blue with kerlix, secure with tape. (2) Venous stasis ulcer of left lower extremity: Proximal wound to Left lateral lower extremity, fairly superficial. 10.5x11x0.2cm Daily dressing changes: see orders Distal wound to the left lateral lower extremity, to the adipose layer 4.5x2.0x0.3cm Daily dressing changes: see orders Attestations 2 Medical Necessity Statement*: Requires continued hospitalization for IV antibiotics related to cellulitis, slowly improve Time Spent in Patient Care: 16 - 35 minutes (>than 50% of time sp ent in counselling and/or direct pt care on unit) . and Moderate Time for a total of 20 minutes, includes reviewing past or interval history, examining/interviewing patient, placing orders, counseling patient/family/other support, updating patient/family/other support, discussing plan of care with staff, documenting encounter and coordinating care Other Coding Information Focused coding review requested Diagnoses Venous ulcer of right leg I83.019; L97.919 Venous stasis ulcer of left lower extremity I83.029; L97.929 Wound Orders Wound Number 1: Proximal wound to Left lateral lower extremity fairly superfical Does Wound require Debridement?: No Duration: 14 Days Dressing change frequency: Daily and Other (PRN if saturated ) Wound Cleansing: Saline Primary Wound Care Dressing: [place] Secondary Wound Care Dressing: ABD , Kerlix and secure with tape Bathing/Showering/Hygiene: May shower without wound dressing Off-Loading: Turn and reposition every 2 hours Edema Control: Elevate legs to heart level for 30 mins daily and/or when sitting and Avoid standing for long periods of time Wound Number 2: Distal wound to left lateral lower extremity down to adipose layer Does Wound require Debridement?: No Duration: 14 Days Dressing change frequency: Daily Wound Cleansing: Saline Primary Wound Care Dressing: [place] Secondary Wound Care Dressing: ABD , Kerlix and secure with tape Bathing/Showering/Hygiene: May shower without wound dressing Off-Loading: Turn and reposition every 2 hours Edema Control: Elevate legs to heart level for 30 mins daily and/or when sitting and Avoid standing for long periods of time Wound Number 3: Right lateral venous ulcer, fairly superficial Does Wound require Debridement?: No Duration: 14 Days Dressing change frequency: Daily Wound Cleansing: Saline Primary Wound Care Dressing: Hydrofera Blue Secondary Wound Care Dressing: Kerlix , secure with tape Bathing/Showering/Hygiene: May shower without wound dressing Off-Loading: Turn and reposition every 2 hours Edema Control: Elevate legs to heart level for 30 mins daily and/or when sitting and Avoid standing for long periods of time
[2023-01-15] MEDS: budesonide 0.5 mg/2 mL Neb INHALATION ×2 (08:38→19:54)
[2023-01-15] MEDS: clopidogrel 75 mg Tablet PO (09:49)
[2023-01-15] MEDS: NON-FORMULARY MEDICATION (Pentoxifylline 400 mg tablet extended release) 400 EACH PO ×3 (09:49→21:51)
[2023-01-15] MEDS: insulin lispro 100 unit/1 mL SUBCUT ×3 (09:50→19:15)
[2023-01-15] MEDS: metoprolol tartrate 25 mg Tablet PO (09:50)
[2023-01-15] MEDS: cloNIDine 0.1 mg Tablet PO ×3 (09:50→21:39)
[2023-01-15] MEDS: vancomycin 1,500 MG/300 ML PIGGYBACK 200 MG IV (09:51)
--- NOTE | 2023-01-15 10:00 | P.PN_ITS ---
Documented by User: MICHAEL Pedroza STDMARTHA 01/15/23 10:27 Subjective 2 Subjective: Mrs. Del Rosario currently on BiPap with 40% FiO2. She was resting in bed her sitting at bedside. Rhythm of Afib continues, patient currently getting Cardizem IV drip at a rate of 15mg/hr. Patient said that she had a significant amount of chest pain overnight with a rhythm change that brought her to the CSU floor. Patient currently denies chest pain, headache, and nausea this morning and is eager to switch over from BiPap to NC for breakfast. Medications: Reviewed: Yes Vitals/I&O/Wt Last Vital Signs Temp 98.2 F 01/15/23 07:40 Pulse 126 H 01/15/23 07:40 Resp 20 H 01/15/23 08:00 BP 145/78 01/15/23 07:40 Pulse Ox 98 01/15/23 08:00 O2 Del Method BiPAP 01/15/23 08:00 O2 Flow Rate 5 01/14/23 14:14 FiO2 35 01/15/23 08:00 01/14/23 01/15/23 01/15/23 22:59 06:59 14:59 Intake Total 650 / 1207.5 110 / 1317.5 Output Total 1200 / 1200 1325 / 2525 Balance -550 / 7.5 -1215 / -1207.5 Weight last 48 hrs Weight 314 lb 1 oz Physical Exam 2 Narrative: General exam: Alert, able to answer questions and explain overnight events. Neck is supple no lymphadenopathy. Cardiovascular irregular, fast rate. Lungs clear to auscultation. Abdomen is soft, nontender with positive bowel sounds. , indwelling catheter in placed Extremities- cap refill present. Swelling and redness has gone down. Wound breakdown to bilaterally extremities. Vascular ulcer noted on the left ankle, dressing in place. Urinary Catheter Management: [place]: Cath Placed During This Visit: yes Reason for Continuing Indwelling Catheter: Acute Urinary Retention or Obstruction Urinary Catheter Date of Insertion: 01/12/23 Urinary Catheter Time of Insertion: 07:30 Data 01/15/23 06:08 01/15/23 06:08 Micro: Microbiology 01/14/23 11:50 Blood Culture - Preliminary Blood SPECIMEN COLLECTED 01/14/23 12:05 Blood Culture - Preliminary Blood SPECIMEN COLLECTED 01/12/23 07:09 Blood Culture - Preliminary Blood Gram Negative Rods A&P Assessment and plan (1) Cellulitis: (2) Chronic venous insufficiency: (3) Peripheral arterial disease: (4) Chronic obstructive pulmonary disease: (5) CKD (chronic kidney disease): (6) Diabetes: (7) Atrial fibrillation with rapid ventricular response: (8) Non-ST elevation myocardial infarction (NSTEMI): Coding Level of Care Code 75573 Diagnoses Cellulitis L03.90 Chronic venous insufficiency I87.2 Peripheral arterial disease I73.9 Chronic obstructive pulmonary disease J44.9 CKD (chronic kidney disease) N18.9 Diabetes E11.9 Atrial fibrillation with rapid ventricular response I48.91 Non-ST elevation myocardial infarction (NSTEMI) I21.4 Time Spent (min) 37 Documented by User: Augustine Tolentino MD 01/15/23 12:20 Subjective 2 Subjective: Mrs. Del Rosario currently on BiPap with 40% FiO2. She was resting in bed her sitting at bedside. Last night atrial fibrillation recurred, requiring transfer to CSU and initiation of diltiazem drip. Rhythm of Afib continues, patient currently getting Cardizem IV drip at a rate of 15mg/hr. Patient said that she had a significant amount of chest pain overnight with a rhythm change that brought her to the CSU floor. Patient currently denies chest pain, headache, and nausea this morning and is eager to switch over from BiPap to NC for breakfast. Physical Exam 2 Narrative: General exam: Alert, able to answer questions and explain overnight events. Denies any chest discomfort currently. Neck is supple no lymphadenopathy. Cardiovascular irregular, fast rate. Lungs clear to auscultation. Abdomen is soft, nontender with positive bowel sounds. , indwelling catheter in placed Extremities- cap refill present. Swelling and redness has gone down. Wound breakdown to bilaterally extremities. Vascular ulcer noted on the left ankle, dressing in place. Urinary Catheter Management: [place]: Cath Placed During This Visit: yes Data 01/15/23 06:08 01/15/23 06:08 A&P Assessment and plan (1) Cellulitis: Acute cellulitis to left lower extremity, erythema/edema improving. Continue vancomycin and Zosyn CBC and CMP daily to review for infection response. Significantly improved. CT bilateral lower extremity: soft tissue edema left lower leg suspicious for cellulitis, no evidence of abscess, fluid collection, or osteomyelitis. / bottle blood culture gram-negative rods. Awaiting ID and sensitivity. Repeat cultures negative to date (2) Chronic venous insufficiency: Wound care consult. Recommendations appreciated. Hydrofera Blue with Kerlix. (3) Peripheral arterial disease: Continue in-depth conversation with risk factor modification. (4) Chronic obstructive pulmonary disease: DuoNeb every 6 hours Pulmicort twice daily (5) CKD (chronic kidney disease): BUN and creatinine improving. Daily BMP (6) Diabetes: Sliding scale insulin Continue long-acting insulin (7) Atrial fibrillation with rapid ventricular response: Yesterday developed A-fib with RVR Currently on Cardizem Add metoprolol, titrate up as needed to get off Cardizem drip Add cardizem po (8) Non-ST elevation myocardial infarction (NSTEMI): Patient had chest pain, most likely associated with pulmonary edema She diuresed approximately 1.5 L with IV Lasix yesterday with improvement in creatinine. She appeared to have pulmonary edema at that time. Wean off BiPAP as tolerated Continue her Plavix, aspirin, full dose anticoagulation Add beta-walter metoprolol 25 mg twice daily, titrate as tolerated Continue Imdur Secondary to pulmonary edema she required support with BiPAP Plan Rhabdomyolysis. Improved. No reason to repeat any further CKs CODE STATUS: Full code DVT prophylaxis: Lovenox Attestations 2 Medical Necessity Statement*: Needs continued hospital stay for adjustment of medication in this patient with new onset atrial fibrillation Diagnoses Cellulitis L03.90 Chronic venous insufficiency I87.2 Peripheral arterial disease I73.9 Chronic obstructive pulmonary disease J44.9 CKD (chronic kidney disease) N18.9 Diabetes E11.9 Atrial fibrillation with rapid ventricular response I48.91 Non-ST elevation myocardial infarction (NSTEMI) I21.4 Time Spent (min) 37
[2023-01-15 11:54] LABS: Glucose Point of Care 315 mg/dL (70-110)
[2023-01-15] MEDS: dilTIAZem 30 mg Tablet PO (12:39)
[2023-01-15 17:12] LABS: Glucose Point of Care 295 mg/dL (70-110)
[2023-01-15] MEDS: FUROsemide 10 mg/mL SDV 4mL 40 MG IVP (18:20)
[2023-01-15] MEDS: dilTIAZem 30 mg Tablet 60 MG PO (18:20)
[2023-01-15] MEDS: oxyCODONE 5 mg IR Tab/Cap PO (21:40)
[2023-01-15] MEDS: metoprolol tartrate 50 mg Tablet PO (21:41)
[2023-01-15] MEDS: enoxaparin 120 mg/0.8 mL Syringe 110 MG SUBCUT (21:41)
[2023-01-16] VITALS (13 sets, daily range): BP systolic 127–150; BP diastolic 69–105; PULSE 53–123; RESP 16–26; TEMP 36.5–36.9; O2SAT 92–97
[2023-01-16] MEDS: dilTIAZem 30 mg Tablet 60 MG PO ×3 (00:46→12:01)
[2023-01-16 01:14] LABS: Basophils # 0.1 10^3/uL (0.0-0.1); Basophils % 0.5 %; Eosinophils # 0.1 10^3/uL (0.0-0.8); Hematocrit 30.5 % (36-47); Lymphocytes % 7.8 %; Mean Corpuscular HGB Conc 31.8 g/dL (30-55); Mean Corpuscular Hemoglobin 28.8 pg (27-33); Mean Corpuscular Volume 90.5 fl (85-98); Mean Platelet Volume 9.7 fL (7.4-10.4); Monocytes # 0.7 10^3/uL (0.2-0.9); Monocytes % 5.5 %; Neutrophils # 10.85 10^3/uL (1.8-7.7); Neutrophils % 84.3 %; Nucleated Red Blood Cells % 0 %; Platelet Count 302 10^3/cmm (157-399); Red Blood Count 3.37 10^6/uL (3.85-5.65); White Blood Count 12.88 10^3/uL (3.29-11.43)
[2023-01-16 01:24] LABS: Anion Gap 18.1 (5-19); Blood Urea Nitrogen 40 mg/dL (8-23); Calcium 9.1 mg/dL (8.5-10.5); Carbon Dioxide 20 mmol/L (22-29); Chloride 99 mmol/L (98-107); Glomerular Filtration Rate 32.2 mL/min (90-130); Glucose 285 mg/dL (65-115); Magnesium 2.3 mg/dL (1.7-2.3); Osmolality Calculated 296 mOsm/kg (285-295); Potassium 4.1 mmol/L (3.5-5.1); Sodium 133 mmol/L (136-145)
[2023-01-16] MEDS: ipratropium-albuterol 3 mL Neb INHALATION ×4 (01:41→21:58)
[2023-01-16] MEDS: piperacillin-tazobactam 3.375 GM in sodium chloride 0.9% (plus) 50 ML IV ×2 (06:08→12:58)
[2023-01-16] MEDS: duloxetine 30 mg Capsule PO (06:09)
[2023-01-16] MEDS: pantoprazole DR 40 mg Tablet PO (06:09)
[2023-01-16] MEDS: isosorbide mononitrate ER 60 mg Tablet 90 MG PO (06:10)
[2023-01-16] MEDS: aspirin 325 mg Tablet PO (06:10)
[2023-01-16] MEDS: allopurinol 100 mg Tablet PO (06:10)
[2023-01-16] MEDS: cloNIDine 0.1 mg Tablet PO ×3 (06:10→23:46)
[2023-01-16] MEDS: budesonide 0.5 mg/2 mL Neb INHALATION ×2 (08:22→21:58)
[2023-01-16 08:31] LABS: Glucose Point of Care 290 mg/dL (70-110)
[2023-01-16 08:31] LABS: Glucose Point of Care 338 mg/dL (70-110)
[2023-01-16 08:31] LABS: Glucose Point of Care 225 mg/dL (70-110)
[2023-01-16] MEDS: clopidogrel 75 mg Tablet PO (09:03)
[2023-01-16] MEDS: metoprolol tartrate 50 mg Tablet 100 MG PO ×2 (09:03→21:54)
[2023-01-16] MEDS: insulin lispro 100 unit/1 mL SUBCUT ×4 (09:04→21:54)
[2023-01-16] MEDS: vancomycin 1,500 MG/300 ML PIGGYBACK 200 MG IV (09:06)
[2023-01-16] MEDS: NON-FORMULARY MEDICATION (Pentoxifylline 400 mg tablet extended release) 400 EACH PO ×3 (09:11→21:54)
[2023-01-16] MEDS: gabapentin 300 mg Capsule PO ×3 (09:11→19:10)
--- NOTE | 2023-01-16 09:11 | P.PN_ITS ---
Documented by User: MICHAEL Pedroza STDMARTHA 01/16/23 10:50 Subjective 2 Subjective: Seema sitting up on side of the bed during rounds this morning. noted to be at bedside. Reports she had trouble sleeping last night, could not get comfortable. She states that her breathing feels easier this morning, Patient on 3 L nasal cannula. Cardizem drip currently infusing at a rate of 12.5 mg/hr. Heart rate noted to be in the 90s. Vitals/I&O/Wt Last Vital Signs Temp 97.9 F 01/16/23 08:00 Pulse 113 H 01/16/23 08:00 Resp 17 01/16/23 08:00 BP 129/90 01/16/23 08:00 Pulse Ox 95 01/16/23 08:00 O2 Del Method Nasal Cannula 01/16/23 08:00 O2 Flow Rate 3 01/16/23 08:00 FiO2 35 01/15/23 23:12 01/15/23 01/16/23 01/16/23 22:59 06:59 14:59 Intake Total 1290 / 2200 1050 / 3250 240 / 240 Output Total 900 / 1900 900 / 2800 Balance 390 / 300 150 / 450 240 / 240 Weight last 48 hrs Weight 311 lb 12.8 oz Physical Exam 2 Narrative: General exam: Alert,, able to answer questions and explain overnight events. Neck is supple, no lymphadenopathy. Cardiovascular irregular, rate in the 90s. Lungs diminished to auscultation. On 3 L nasal cannula, wore BiPAP overnight. Abdomen is soft, nontender, with positive bowel sounds. , indwelling catheter in place. Extremities: Cap refill is present. Swelling and redness on the left lower extremity has continued to go down. Wound breakdown to bilateral extremities. Vascular ulcer noted on left ankle dressing in place. Urinary Catheter Management: [place]: Cath Placed During This Visit: yes Reason for Continuing Indwelling Catheter: Acute Urinary Retention or Obstruction Urinary Catheter Date of Insertion: 01/12/23 Urinary Catheter Time of Insertion: 07:30 Data 01/16/23 00:55 01/16/23 00:55 Other Labs: WBC improving- 12.88. Radiologic Technology Instructor 1.6 and BUN 40-slightly increased. Micro: Microbiology 01/12/23 07:09 Blood Culture - Preliminary Blood Achromobacter xylosoxidans sub 01/14/23 12:05 Blood Culture - Preliminary Blood NEGATIVE TO DATE 01/14/23 11:50 Blood Culture - Preliminary Blood NEGATIVE TO DATE A&P Assessment and plan (1) Cellulitis: Acute cellulitis to left lower extremity, redness and swelling continue to improve. Continue vancomycin and Zosyn. CBC and CMP daily to review for infection response. CT bilateral lower extremity: Soft tissue edema left lower leg suspicion for cellulitis, no evidence of abscess, fluid collection, or osteomyelitis. 02/19 bottle blood culture gram-negative rods. Awaiting ID and sensitivity. (2) Chronic venous insufficiency: Wound care consulted, recommendations of Hydrofera Blue with kerlix. Dressing noted to be in place this morning. (3) Peripheral arterial disease: Continue in-depth conversation with risk factor modification. (4) Chronic obstructive pulmonary disease: Continue DuoNebs every 6 hours. Continue Pulmicort twice daily (5) CKD (chronic kidney disease): BUN and creatinine slightly increased today. Radiologic Technology Instructor 1.6 and BUN 40 this morning. Daily BMP ordered (6) Atrial fibrillation with rapid ventricular response: Developed A-fib with RVR 01/14, currently on IV Cardizem. Metoprolol added 01/15, increased dose 100 mg twice daily. Cardizem p.o. ordered (7) Non-ST elevation myocardial infarction (NSTEMI): Patient denies chest pain this morning. Patient noted to be on 3 L nasal cannula. Denies shortness of breath this morning, although reported shortness of breath overnight with slight chest pain, this quickly resolved without intervention. Continue her Plavix, aspirin, full dose anticoagulation. Beta-walter added 01/15. Metoprolol increased to 100 twice daily. Continue Imdur. Cardiology consulted. Plan Full code. Lovenox for DVT prophylaxis Coding Level of Care Code 42120 Diagnoses Cellulitis L03.90 Chronic venous insufficiency I87.2 Peripheral arterial disease I73.9 Chronic obstructive pulmonary disease J44.9 CKD (chronic kidney disease) N18.9 Atrial fibrillation with rapid ventricular response I48.91 Non-ST elevation myocardial infarction (NSTEMI) I21.4 Time Spent (min) 24 Documented by User: Augustine Tolentino MD 01/16/23 11:45 Subjective 2 Medications: Reviewed: Yes Physical Exam 2 Urinary Catheter Management: [place]: Cath Placed During This Visit: yes Data 01/16/23 00:55 01/16/23 00:55 A&P Assessment and plan (1) Cellulitis: (2) Chronic venous insufficiency: (3) Peripheral arterial disease: (4) Chronic obstructive pulmonary disease: (5) CKD (chronic kidney disease): (6) Atrial fibrillation with rapid ventricular response: Developed A-fib with RVR 01/14, currently on IV Cardizem. Metoprolol added 01/15, increased dose 100 mg twice daily. Cardizem p.o. ordered Wean off IV Cardizem. (7) Non-ST elevation myocardial infarction (NSTEMI): Patient denies chest pain this morning. Patient noted to be on 3 L nasal cannula. Denies shortness of breath this morning, although reported shortness of breath overnight with slight chest pain, this quickly resolved without intervention. Continue her Plavix, aspirin, full dose anticoagulation. Beta-walter added 01/15. Metoprolol increased to 100 twice daily. Continue Imdur. Cardiology consulted. May need nuclear stress testing event of hospital stay, or outpatient She appears compensated currently. Reinitiate her Bumex. Attestations 2 Medical Necessity Statement*: Patient needs continued hospitalization for IV antibiotics related to bacteremia, as well as treatment of A-fib with RVR Diagnoses Cellulitis L03.90 Chronic venous insufficiency I87.2 Peripheral arterial disease I73.9 Chronic obstructive pulmonary disease J44.9 CKD (chronic kidney disease) N18.9 Atrial fibrillation with rapid ventricular response I48.91 Non-ST elevation myocardial infarction (NSTEMI) I21.4 Time Spent (min) 24
[2023-01-16] MEDS: dilTIAZem 100 MG in sodium chloride 0.9% (add-van) 100 ML 15 MG IV (09:18)
[2023-01-16 10:58] LABS: Glucose Point of Care 383 mg/dL (70-110)
[2023-01-16] MEDS: bumetanide 1 mg Tablet PO (12:01)
--- NOTE | 2023-01-16 13:56 | P.CONIM_ITS ---
Providers/Reason For Consult 2 Consulting Physician/Specialty*: cardiology Reason for Consult*: afib, mildly elevated rps,chf Attending Physician: Augustine Tolentino MD Primary Care Provider: Jeanine Solares MD History of Present Illness History of Present Illness Seema Del Rosario is a 67 year old female with history of CAD status post PCI and stent placement in 2007 according to the patient. She had also a procedure done in 2017 with reported stent. Patient had a history of diabetes hypertension hyperlipidemia and patient also had a paroxysmal atrial fibrillation. Patient was admitted to the hospital with bilateral leg cellulitis after fall. Patient also developed atrial fibrillation with rapid ventricular response currently controlled on IV Cardizem. Patient had mildly elevated troponins with peak of 73. Patient had elevated BNP with symptoms of heart failure. Currently all improved. Up in a chair currently no chest pain or shortness of breath. Mild leg edema Review of Systems 2 General: Reports: 10 or more systems reviewed and unremarkable except in HPI and below Const: Reports: other Card: Reports: swelling of feet/ankles; Denies: chest pain Resp: Reports: dyspnea; Denies: productive cough or non-productive cough GI: Denies: abdominal pain, nausea, vomiting, hematochezia or melena Medications/Allergies Home Medications Medication Instructions Recorded Confirmed Last Taken Type allopurinol 100 mg tablet 100 mg PO DAILY@0704/25/19 01/12/23 01/11/23 History aspirin 325 mg tablet 325 mg PO DAILY@69904/25/19 01/12/23 01/11/23 History clonidine HCl 0.1 mg tablet 0.1 mg PO Q8H 04/25/19 01/12/23 01/11/23 History gabapentin 300 mg capsule 300 mg PO TID@07,12,19 04/25/19 01/12/23 01/11/23 History isosorbide mononitrate 60 mg 90 mg PO DAILY@0704/25/19 01/12/23 01/11/23 History tablet,extended release 24 hr polyethylene glycol 3350 17 17 g PO DAILY PRN Constipation 04/25/19 01/12/23 11/13/22 05:00 History gram/dose oral powder simvastatin 10 mg tablet 10 mg PO DAILY@219904/25/19 01/12/23 01/11/23 History amitriptyline 25 mg tablet 25 mg PO BEDTIME@2200 09/05/19 01/12/23 01/11/23 History insulin degludec 100 unit/mL (3 42 unit SUBCUT BID 09/06/20 01/12/23 11/12/22 20:00 History mL) subcutaneous pen (Tresiba 21 FlexTouch U-100 insulin) insulin lispro 100 unit/mL 30 unit SUBCUT TID 07/30/21 01/12/23 11/12/22 20:00 History subcutaneous pen (Humalog KwikPen 16 (U-100) Insulin) tiotropium 2.5 mcg-olodaterol 2.5 2 puff inhalation DAILY@07 #4 grams 06/16/22 01/12/23 01/11/23 Rx mcg/actuation mist for inhalation (Stiolto Respimat) Sand Cutter Operator brace #1 ea 08/18/22 01/12/23 11/13/22 05:00 Rx tramadol 50 mg tablet 50 mg PO BID PRN Pain 09/02/22 01/12/23 11/13/22 05:00 History pentoxifylline 400 mg 400 mg PO TID #90 tabs 09/17/22 01/12/23 01/11/23 Rx tablet,extended release duloxetine 30 mg capsule,delayed 30 mg PO QAM 10/15/22 01/12/23 01/11/23 History release pantoprazole 40 mg tablet,delayed 40 mg PO QAM 10/15/22 01/12/23 01/11/23 History release amlodipine 10 mg tablet 10 mg PO QAM 01/12/23 01/12/23 01/11/23 History bumetanide 1 mg tablet 1 mg PO QAM 01/12/23 01/12/23 01/11/23 History dapagliflozin propanediol 10 mg 10 mg PO QAM 01/12/23 01/12/23 01/11/23 History tablet (Farxiga) ergocalciferol (vitamin D2) 1,250 50,000 unit PO Q7D 01/12/23 01/12/23 01/08/23 History mcg (50,000 unit) capsule Allergies Allergy/AdvReac Type Severity Reaction Status Date / Time anastrozole Allergy ALGY-Joint Verified 01/12/23 08:34 Pain Current Medications Generic Name Dose Route Start Last Admin Trade Name Freq PRN Reason Stop Dose Admin Albuterol/Ipratropium 3 ml 01/12/23 20:00 01/16/23 08:22 Ipratropium-Albuterol 3 Ml Neb INHALATION 3 ml Q6H.RESP BRIGITTE Administration Allopurinol 100 mg 01/13/23 07:00 01/16/23 06:10 Allopurinol 100 Mg Tablet PO 100 mg DAILY@0700 BRIGITTE Administration Aspirin 325 mg 01/13/23 07:00 01/16/23 06:10 Aspirin 325 Mg Tablet PO 325 mg DAILY@0700 BRIGITTE Administration Budesonide 0.5 mg 01/12/23 20:00 01/16/23 08:22 Budesonide 0.5 Mg/2 Ml Neb INHALATION 0.5 mg BID.RESPIRATORY BRIGITTE Administration Bumetanide 1 mg 01/16/23 11:35 01/16/23 12:01 Bumetanide 1 Mg Tablet PO 1 mg DAILY BRIGITTE Administration Clonidine HCl 0.1 mg 01/12/23 15:12 01/16/23 06:10 Clonidine 0.1 Mg Tablet PO 0.1 mg Q8H BRIGITTE Administration Clopidogrel Bisulfate 75 mg 01/15/23 09:00 01/16/23 09:03 Clopidogrel 75 Mg Tablet PO 75 mg DAILY BRIGITTE Administration Diltiazem HCl 60 mg 01/15/23 18:00 01/16/23 12:01 Diltiazem 30 Mg Tablet PO 60 mg Q6H BRIGITTE Administration Duloxetine HCl 30 mg 01/13/23 06:00 01/16/23 06:09 Duloxetine 30 Mg Capsule PO 30 mg QAM BR[place]TE Administration Enoxaparin Sodium 110 mg 01/14/23 22:15 01/15/23 21:41 Enoxaparin 120 Mg/0.8 Ml Syringe SUBCUT 110 mg Q24H BR[place]ITTE Administration Gabapentin 300 mg 01/12/23 15:12 01/16/23 12:04 Gabapentin 300 Mg Capsule PO 300 mg TID@,, BRIGITTE Administration Piperacillin Sod/Tazobactam 50 mls @ 12.5 mls/hr 01/12/23 21:00 01/16/23 12:58 Sod 3.375 gm/ Sodium Chloride IV 12.5 mls/hr Q8H BRIGITTE Administration Protocol As Directed Diltiazem HCl 100 mg/ Sodium 120 mls @ 0 mls/hr 01/15/23 06:30 01/16/23 12:57 Chloride IV 5 mg/hr .Q0M BRIGITTE 6 mls/hr Titration Protocol Per Protocol Vancomycin/PEG/NADA/Lysine/Water 1,500 mg in 300 mls @ 200 mls/hr 01/16/23 08:00 01/16/23 09:06 Vancocin IV 200 mls/hr Q24H BR[place]TE Administration Insulin Human Lispro 0 unit 01/12/23 15:12 01/16/23 12:07 Insulin Lispro 100 Unit/1 Ml SUBCUT 12 unit WM&BEDTIME BRIGITTE Administration Protocol Isosorbide Mononitrate 90 mg 01/13/23 07:00 01/16/23 06:10 Isosorbide Mononitrate Er 60 Mg Tablet PO 90 mg DAILY@0700 BRIGITTE Administration Metoprolol Tartrate 100 mg 01/16/23 09:00 01/16/23 09:03 Metoprolol Tartrate 50 Mg Tablet PO 100 mg BID@0900,2100 BRIGITTE Administration Non-Formulary Medication 42 unit 01/12/23 18:00 01/16/23 09:07 Insulin Degludec [Tresiba Flextouch U-100] SUBCUT Not Given BID BRIGITTE Non-Formulary Medication 400 mg 01/12/23 15:12 01/16/23 09:11 Pentoxifylline PO 400 mg TID BRIGITTE Administration Oxycodone HCl 5 mg 01/12/23 15:12 01/15/23 21:40 Oxycodone 5 Mg Ir Tab/Cap PO 5 mg Q6H PRN Administration SEVERE PAIN Pantoprazole Sodium 40 mg 01/13/23 06:00 01/16/23 06:[address] 40 Mg Tablet PO 40 mg QAM BRIGITTE Administration PFSH Acute 2 PFSH: Medical History CKD (chronic kidney disease) Atherosclerosis of coronary artery of [place] heart without angina pectoris Peripheral arterial disease Lower extremity edema Leg pain Chronic venous insufficiency Chronic obstructive pulmonary disease Atrial fibrillation, chronic Diastolic heart failure Anemia Screen for colon cancer History of breast cancer Diabetes Hypertension Surgical History History of esophagogastroduodenoscopy (EGD) (~08/2019) [facility] [place]. History of colonoscopy with polypectomy (~08/2019) [facility] [place]. History of carpal tunnel release of both wrists History of coronary angioplasty with insertion of stent History of coronary artery balloon dilation History of lumpectomy Family History Father CAD (coronary artery disease), Onset Age: 50 Cancer Diabetes Hyperlipidemia Hypertension Lung disease Denies family history of Clotting disorder Dementia Psychiatric illness Chronic kidney disease (CKD) Suicide Anesthesia complication Bleeding disorder Stroke Social History Smoking and tobacco/nicotine status: former use of tobacco/nicotine Quit status (tobacco/nicotine): has quit using Year quit tobacco: 2016 - 2PPD x 40 Years Alcohol intake: never Substance/Drug Use: never Lives independently: Yes Household members: spouse Marital status: Current occupational status: retired Do you think of yourself as: Straight/Heterosexual Current gender identity: Female Vitals/I&O/Wt Last Vital Signs Temp 97.9 F 01/16/23 11:31 Pulse 76 01/16/23 11:31 Resp 21 H 01/16/23 11:31 BP 145/75 01/16/23 11:31 Pulse Ox 92 01/16/23 11:31 O2 Del Method Nasal Cannula 01/16/23 11:31 O2 Flow Rate 3 01/16/23 08:00 FiO2 35 01/15/23 23:12 01/15/23 01/16/23 01/16/23 22:59 06:59 14:59 Intake Total 1290 / 2200 1050 / 3250 337.55 / 337.55 Output Total 900 / 1900 900 / 2800 Balance 390 / 300 150 / 450 337.55 / 337.55 Weight last 48 hrs Weight 311 lb 12.8 oz Physical Exam 2 Const: COMMON NORMALS: no acute distress, patient oriented x3, no limitations, alert and well nourished HENMT: COMMON NORMALS: normocephalic, atraumatic, hearing grossly normal bilaterally and gingiva normal HEAD & SCALP: normocephalic and atraumatic Eye: COMMON NORMALS: Equal, round and reactive pupils present and EOMs intact bilaterally GENERAL EYE: appearance normal, both eyes and all related structures PUPIL: Yes Equal, round and reactive pupils present Neck/C-Spine: COMMON NORMALS: no JVD GENERAL: Yes normal visual inspection CAROTIDS: Yes normal carotid upstroke Chest: COMMONS NORMALS: normal inspection of the chest CHEST: Yes Symmetrical chest wall rise Resp: COMMON NORMALS: normal respiratory effort, No retractions, clear to auscultation bilaterally and percussion normal EFFORT & INSPECTION: Yes symmetric chest movement AUSCULTATION: clear to auscultation bilaterally P ERCUSSION: percussion normal Cardio: COMMON NORMALS: no JVD, regular rate, regular rhythm, S1 normal heart sound present, S2 normal heart sound present, No gallops present (Cardio), No clicks present (Cardio), No murmurs present (Cardio) and No rub (Cardio) R ATE: regular rate RHYTHM: regular rhythm HEART SOUNDS: S1 normal heart sound present and S2 normal heart sound present GI: COMMON NORMALS: Normal to inspection, nondistended, normoactive bowel sounds present, Soft to palpation and non-tender PALPATION: Yes Soft to palpation : COMMON NORMALS: Yes no CVA tenderness BLADDER/KIDNEY EXAM: Yes no CVA tenderness Back/Pelvis: COMMON NORMALS: no CVA tenderness Extremity: COMMON NORMALS: normal to inspection, full ROM, no joint enlargement, no calf tenderness and no pedal edema (Mild pedal edema bilaterally.) Neuro: COMMON NORMALS: patient oriented x3, moves all extremities, no focal motor deficits and no sensory deficits noted SENSORIUM/ORIENTATION: Yes alert GAIT: Yes Normal gait present Psych: COMMON NORMALS: mental status grossly normal APPEARANCE: Yes grossly normal Skin: COMMON NORMALS: no rashes or lesions noted GENERAL SKIN EXAM: no rashes or lesions noted Urinary Catheter Management: [place]: Cath Placed During This Visit: yes Reason for Continuing Indwelling Catheter: Acute Urinary Retention or Obstruction Urinary Catheter Date of Insertion: 01/12/23 Urinary Catheter Time of Insertion: 07:30 Data 01/16/23 00:55 01/16/23 00:55 Micro: Microbiology 01/12/23 07:09 Blood Culture - Preliminary Blood Achromobacter xylosoxidans sub 01/14/23 12:05 Blood Culture - Preliminary Blood NEGATIVE TO DATE 01/14/23 11:50 Blood Culture - Preliminary Blood NEGATIVE TO DATE A&P Assessment and plan (1) Atrial fibrillation with rapid ventricular response: Rate controlled currently continue on beta-walter and p.o. Cardizem we will continue to wean off IV Cardizem. Patient is on Lovenox for anticoagulation will need long-term anticoagulation with Eliquis once discharged home. Recent echocardiogram showing normal LV function with no significant valvular disease (2) Atherosclerosis of coronary artery of [place] heart without angina pectoris: History of CAD status post PCI and drug-eluting stent. Patient had mildly elevated troponin likely demand ischemia. No active angina. Patient could benefit from Lexiscan stress test at later stage to evaluate risk for ischemia. Meanwhile continue medical therapy (3) Non-ST elevation myocardial infarction (NSTEMI): Mildly elevated troponin likely demand ischemia further ischemic work-up later on once her cellulitis and bacteremia resolves. (4) Hypertension: Adequately controlled. continue current medications. (5) Diastolic heart failure: improve . continue IV diuretics. Qualifiers: Heart failure chronicity: chronic Qualified Code(s): I50.32 - Chronic diastolic (congestive) heart failure Coding Level of Care Code 56707 Diagnoses Atrial fibrillation with rapid ventricular response I48.91 Atherosclerosis of coronary artery of [place] heart without angina pectoris I25.10 Non-ST elevation myocardial infarction (NSTEMI) I21.4 Essential hypertension I10 Chronic diastolic heart failure I50.32 Heart failure chronicity: chronic
[2023-01-16] MEDS: enoxaparin 120 mg/0.8 mL Syringe 110 MG SUBCUT (16:21)
[2023-01-16 17:32] LABS: Glucose Point of Care 327 mg/dL (70-110)
[2023-01-16] MEDS: dilTIAZem 30 mg Tablet PO ×2 (17:54→21:54)
[2023-01-16] MEDS: levofloxacin-dextrose 5 % 750 MG/150 ML PREMIX 100 MG IV (17:54)
[2023-01-16 21:41] LABS: Glucose Point of Care 284 mg/dL (70-110)
[2023-01-17] VITALS (21 sets, daily range): BP systolic 143–177; BP diastolic 61–81; PULSE 60–80; RESP 17–27; TEMP 36.3–36.9; O2SAT 94–100
[2023-01-17] MEDS: ipratropium-albuterol 3 mL Neb INHALATION ×4 (02:08→19:14)
[2023-01-17] MEDS: enoxaparin 120 mg/0.8 mL Syringe 110 MG SUBCUT ×2 (03:09→17:26)
[2023-01-17 03:54] LABS: Basophils # 0.1 10^3/uL (0.0-0.1); Basophils % 0.7 %; Eosinophils # 0.2 10^3/uL (0.0-0.8); Eosinophils % 1.9 %; Hematocrit 29.2 % (36-47); Lymphocytes # 1.3 10^3/uL (0.8-4.8); Lymphocytes % 10.9 %; Mean Corpuscular HGB Conc 31.2 g/dL (30-55); Mean Corpuscular Hemoglobin 28.5 pg (27-33); Mean Corpuscular Volume 91.5 fl (85-98); Mean Platelet Volume 10.1 fL (7.4-10.4); Monocytes # 0.8 10^3/uL (0.2-0.9); Monocytes % 6.5 %; Neutrophils # 9.32 10^3/uL (1.8-7.7); Neutrophils % 78.3 %; Nucleated Red Blood Cells % 0 %; Platelet Count 319 10^3/cmm (157-399); Red Blood Count 3.19 10^6/uL (3.85-5.65); Red Cell Distribution Width 14.1 % (12.1-15.1); White Blood Count 11.88 10^3/uL (3.29-11.43)
[2023-01-17 04:20] LABS: Anion Gap 17.8 (5-19); Blood Urea Nitrogen 55 mg/dL (8-23); Calcium 8.7 mg/dL (8.5-10.5); Carbon Dioxide 19 mmol/L (22-29); Chloride 100 mmol/L (98-107); Glomerular Filtration Rate 24.9 mL/min (90-130); Glucose 211 mg/dL (65-115); Osmolality Calculated 297 mOsm/kg (285-295); Potassium 3.8 mmol/L (3.5-5.1); Sodium 133 mmol/L (136-145)
[2023-01-17] MEDS: pantoprazole DR 40 mg Tablet PO (05:26)
[2023-01-17] MEDS: dilTIAZem 30 mg Tablet PO ×4 (05:26→21:40)
[2023-01-17] MEDS: duloxetine 30 mg Capsule PO (05:26)
[2023-01-17] MEDS: gabapentin 300 mg Capsule PO ×3 (06:28→19:59)
[2023-01-17] MEDS: allopurinol 100 mg Tablet PO (06:28)
[2023-01-17] MEDS: aspirin 325 mg Tablet PO (06:28)
[2023-01-17] MEDS: cloNIDine 0.1 mg Tablet PO ×3 (06:28→22:46)
[2023-01-17] MEDS: isosorbide mononitrate ER 60 mg Tablet 90 MG PO (06:34)
[2023-01-17 06:37] LABS: Glucose Point of Care 259 mg/dL (70-110)
[2023-01-17] MEDS: insulin lispro 100 unit/1 mL SUBCUT ×4 (07:51→21:41)
[2023-01-17] MEDS: vancomycin 1,500 MG/300 ML PIGGYBACK 200 MG IV (07:51)
[2023-01-17] MEDS: NON-FORMULARY MEDICATION (Pentoxifylline 400 mg tablet extended release) 400 EACH PO ×3 (08:58→21:41)
[2023-01-17] MEDS: clopidogrel 75 mg Tablet PO (08:58)
[2023-01-17] MEDS: bumetanide 1 mg Tablet PO (08:58)
[2023-01-17] MEDS: metoprolol tartrate 50 mg Tablet 100 MG PO ×2 (08:59→21:40)
[2023-01-17] MEDS: budesonide 0.5 mg/2 mL Neb INHALATION ×2 (09:04→19:14)
--- NOTE | 2023-01-17 10:27 | P.PN_ITS ---
Subjective 2 Subjective: Patient is doing well without any chest pain or shortness of breath. Back in normal sinus rhythm Vitals/I&O/Wt Last Vital Signs Temp 97.8 F 01/17/23 07:23 Pulse 67 01/17/23 09:13 Resp 19 H 01/17/23 09:08 BP 145/76 01/17/23 07:23 Pulse Ox 95 01/17/23 09:08 O2 Del Method Nasal Cannula 01/17/23 09:08 O2 Flow Rate 2 01/17/23 09:08 FiO2 35 01/17/23 02:08 01/16/23 01/17/23 01/17/23 22:59 06:59 14:59 Intake Total 972.45 / 1610.00 600 / 2210.00 540 / 540 Output Total 500 / 500 1000 / 1500 Balance 472.45 / 1110.00 -400 / 710.00 540 / 540 Weight last 48 hrs Weight 309 lb 14.4 oz Weight 311 lb 12.8 oz Physical Exam 2 Const: COMMON NORMALS: no acute distress, patient oriented x3, no limitations, alert and well nourished HENMT: COMMON NORMALS: normocephalic, atraumatic, hearing grossly normal bilaterally and gingiva normal HEAD & SCALP: normocephalic and atraumatic Eye: COMMON NORMALS: Equal, round and reactive pupils present and EOMs intact bilaterally GENERAL EYE: appearance normal, both eyes and all related structures PUPIL: Yes Equal, round and reactive pupils present Neck/C-Spine: COMMON NORMALS: no JVD GENERAL: Yes normal visual inspection CAROTIDS: Yes normal carotid upstroke Chest: COMMONS NORMALS: normal inspection of the chest CHEST: Yes Symmetrical chest wall rise Resp: COMMON NORMALS: normal respiratory effort, No retractions, clear to auscultation bilaterally and percussion normal EFFORT & INSPECTION: Yes symmetric chest movement AUSCULTATION: clear to auscultation bilaterally P ERCUSSION: percussion normal Cardio: COMMON NORMALS: no JVD, regular rate, regular rhythm, S1 normal heart sound present, S2 normal heart sound present, No gallops present (Cardio), No clicks present (Cardio), No murmurs present (Cardio) and No rub (Cardio) R ATE: regular rate RHYTHM: regular rhythm HEART SOUNDS: S1 normal heart sound present and S2 normal heart sound present GI: COMMON NORMALS: Normal to inspection, nondistended, normoactive bowel sounds present, Soft to palpation and non-tender PALPATION: Yes Soft to palpation : COMMON NORMALS: Yes no CVA tenderness BLADDER/KIDNEY EXAM: Yes no CVA tenderness Back/Pelvis: COMMON NORMALS: no CVA tenderness Extremity: COMMON NORMALS: normal to inspection, full ROM, no joint enlargement, no clubbing, cyanosis or edema, no calf tenderness and no pedal edema (Mild pedal edema bilaterally.) Neuro: COMMON NORMALS: patient oriented x3, moves all extremities, no focal motor deficits and no sensory deficits noted SENSORIUM/ORIENTATION: Yes alert GAIT: Yes Normal gait present Psych: COMMON NORMALS: mental status grossly normal APPEARANCE: Yes grossly normal Skin: COMMON NORMALS: no rashes or lesions noted GENERAL SKIN EXAM: no rashes or lesions noted Urinary Catheter Management: [place]: Cath Placed During This Visit: yes Reason for Continuing Indwelling Catheter: Accurate Measurement of Urinary Output in Critically Ill Patients Urinary Catheter Date of Insertion: 01/12/23 Urinary Catheter Time of Insertion: 07:30 Data 01/17/23 03:06 01/17/23 03:06 Micro: Microbiology 01/12/23 06:50 Blood Culture - Final Blood NO GROWTH AFTER 5 DAYS 01/12/23 07:09 Blood Culture - Preliminary Blood Achromobacter xylosoxidans sub A&P Assessment and plan (1) Non-ST elevation myocardial infarction (NSTEMI): In the setting of bacteremia and cellulitis. No active angina. Continue current medical therapy patient will benefit from ischemic work-up at later stage (2) Atrial fibrillation with rapid ventricular response: Back in sinus rhythm this morning continue rate controlling medication including Cardizem and beta-blockers. Patient can be switched to Eliquis 5 mg twice a day (3) Peripheral arterial disease: Stable treated medically. (4) Diastolic heart failure: Improved continue diuretics. Continue low-salt diet. Qualifiers: Heart failure chronicity: chronic Qualified Code(s): I50.32 - Chronic diastolic (congestive) heart failure Attestations 2 Medical Necessity Statement*: Patient still needs treatment for her cellulitis and bacteremia managed by hospitalist Coding Level of Care Code 79379 Diagnoses Non-ST elevation myocardial infarction (NSTEMI) I21.4 Atrial fibrillation with rapid ventricular response I48.91 Peripheral arterial disease I73.9 Chronic diastolic heart failure I50.32 Heart failure chronicity: chronic
[2023-01-17 12:34] LABS: Glucose Point of Care 298 mg/dL (70-110)
--- NOTE | 2023-01-17 16:02 | P.PN_ITS ---
Subjective 2 Subjective: Heart rate is controlled today. Denies any new complaints. Lower extremity edema present. Cellulitis does not seem to be worsening. Currently sinus rhythm at 60 bpm. Medications: Reviewed: Yes Vitals/I&O/Wt Last Vital Signs Temp 97.5 F L 01/17/23 12:00 Pulse 61 01/17/23 15:35 Resp 18 01/17/23 15:35 BP 147/79 01/17/23 12:00 Pulse Ox 100 01/17/23 15:35 O2 Del Method Nasal Cannula 01/17/23 15:35 O2 Flow Rate 2 01/17/23 15:35 FiO2 35 01/17/23 02:08 01/17/23 01/17/23 01/17/23 06:59 14:59 22:59 Intake Total 600 / 2210.00 780 / 780 Output Total 1000 / 1500 Balance -400 / 710.00 780 / 780 Weight last 48 hrs Weight 140.568 kg Weight 141.43 kg Physical Exam 2 Narrative: General: No acute distress, AO x3 HEENT: PERRLA, pupils bilaterally equal and reactive, pallors not present Chest: Normal vesicular breath sounds, no added sounds, equal good air entry bilaterally CVS: S1-S2 regular, no murmurs, no tachycardia, no gallops, no rubs Abdomen: Soft, nontender, no organomegaly, bowel sounds present Neuro: No focal deficits, no facial deformity, AO x3, power 5/5 in all limbs Urinary Catheter Management: [place]: Cath Placed During This Visit: yes Reason for Continuing Indwelling Catheter: Accurate Measurement of Urinary Output in Critically Ill Patients Urinary Catheter Date of Insertion: 01/12/23 Urinary Catheter Time of Insertion: 07:30 Data 01/17/23 03:06 01/17/23 03:06 Micro: Microbiology 01/12/23 06:50 Blood Culture - Final Blood NO GROWTH AFTER 5 DAYS 01/12/23 07:09 Blood Culture - Preliminary Blood Achromobacter xylosoxidans sub A&P Assessment and plan (1) Cellulitis: Acute cellulitis to left lower extremity, redness and swelling continue to improve. Continue vancomycin and Zosyn. CBC and CMP daily to review for infection response. CT bilateral lower extremity: Soft tissue edema left lower leg suspicion for cellulitis, no evidence of abscess, fluid collection, or osteomyelitis. 02/19 bottle blood culture gram-negative rods. Awaiting ID and sensitivity. (2) Chronic venous insufficiency: Wound care consulted, recommendations of Hydrofera Blue with kerlix. Dressing noted to be in place this morning. (3) Peripheral arterial disease: Continue in-depth conversation with risk factor modification. (4) Chronic obstructive pulmonary disease: Continue DuoNebs every 6 hours. Continue Pulmicort twice daily (5) CKD (chronic kidney disease): BUN and creatinine slightly increased today. 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 Daily BMP ordered (6) Atrial fibrillation with rapid ventricular response: Developed A-fib with RVR 01/14, currently on IV Cardizem. Metoprolol added 01/15, increased dose 100 mg twice daily. Cardizem p.o. ordered Wean off IV Cardizem. (7) Non-ST elevation myocardial infarction (NSTEMI): Patient denies chest pain this morning. Patient noted to be on 3 L nasal cannula. Denies shortness of breath this morning, although reported shortness of breath overnight with slight chest pain, this quickly resolved without intervention. Continue her Plavix, aspirin, full dose anticoagulation. Beta-walter added 01/15. Metoprolol increased to 100 twice daily. Continue Imdur. Cardiology consulted. May need nuclear stress testing event of hospital stay, or outpatient She appears compensated currently. Reinitiate her Bumex. Plan Full code. Lovenox for DVT prophylaxis Plan for today: Continue levofloxacin, continue diuresis, plan on stress test on Thursday. Attestations 2 Medical Necessity Statement*: Continued need for antibiotics, plan stress test on Thursday. Coding Level of Care Code Acute Code for Chg Fwd Moderate MDM includes number and complexity of problems actively addressed during encounter, amount and/or complexity of data reviewed/ordered and described risk of complication, morbidity or mortality of management as documented Diagnoses Cellulitis L03.90 Chronic venous insufficiency I87.2 Peripheral arterial disease I73.9 Chronic obstructive pulmonary disease J44.9 CKD (chronic kidney disease) N18.9 Atrial fibrillation with rapid ventricular response I48.91 Non-ST elevation myocardial infarction (NSTEMI) I21.4
[2023-01-17 17:01] LABS: Glucose Point of Care 342 mg/dL (70-110)
[2023-01-17] MEDS: levofloxacin-dextrose 5 % 750 MG/150 ML PREMIX 100 MG IV (17:26)
[2023-01-17 17:32] LABS: Alanine Aminotransferase 17 U/L (0-33); Albumin Level 2.7 g/dL (3.5-5.2); Alkaline Phosphatase 129 U/L (35-105); Anion Gap 17.4 (5-19); Aspartate Amino Transferase 12 U/L (0-32); Blood Urea Nitrogen 60 mg/dL (8-23); Calcium 8.8 mg/dL (8.5-10.5); Carbon Dioxide 21 mmol/L (22-29); Chloride 99 mmol/L (98-107); Glomerular Filtration Rate 23.5 mL/min (90-130); Glucose 321 mg/dL (65-115); Osmolality Calculated 305 mOsm/kg (285-295); Potassium 4.4 mmol/L (3.5-5.1); Sodium 133 mmol/L (136-145); Total Bilirubin 0.4 mg/dL (0.15-1.2); Total Protein 6.7 g/dL (6.6-8.7)
[2023-01-17 21:08] LABS: Glucose Point of Care 259 mg/dL (70-110)
[2023-01-18] VITALS (19 sets, daily range): BP systolic 145–193; BP diastolic 66–85; PULSE 55–70; RESP 18–24; TEMP 36.4–37.1; O2SAT 92–98; BMI 49.9
[2023-01-18] MEDS: ipratropium-albuterol 3 mL Neb INHALATION ×4 (01:55→19:21)
[2023-01-18] MEDS: enoxaparin 120 mg/0.8 mL Syringe 110 MG SUBCUT ×2 (05:43→15:34)
[2023-01-18] MEDS: dilTIAZem 30 mg Tablet PO ×4 (05:44→22:30)
[2023-01-18] MEDS: duloxetine 30 mg Capsule PO (05:45)
[2023-01-18] MEDS: pantoprazole DR 40 mg Tablet PO (05:45)
[2023-01-18 06:36] LABS: Glucose Point of Care 215 mg/dL (70-110)
[2023-01-18] MEDS: isosorbide mononitrate ER 60 mg Tablet 90 MG PO (06:57)
[2023-01-18] MEDS: aspirin 325 mg Tablet PO (06:57)
[2023-01-18] MEDS: cloNIDine 0.1 mg Tablet PO ×3 (06:57→22:30)
[2023-01-18] MEDS: gabapentin 300 mg Capsule PO ×3 (06:57→17:53)
[2023-01-18] MEDS: allopurinol 100 mg Tablet PO (06:57)
[2023-01-18 07:20] LABS: Basophils # 0.1 10^3/uL (0.0-0.1); Basophils % 0.5 %; Eosinophils # 0.3 10^3/uL (0.0-0.8); Hematocrit 31.7 % (36-47); Lymphocytes # 1.1 10^3/uL (0.8-4.8); Lymphocytes % 10.9 %; Mean Corpuscular HGB Conc 30.6 g/dL (30-55); Mean Corpuscular Volume 91.6 fl (85-98); Monocytes # 0.5 10^3/uL (0.2-0.9); Monocytes % 4.9 %; Neutrophils # 7.87 10^3/uL (1.8-7.7); Neutrophils % 78.7 %; Nucleated Red Blood Cells % 0 %; Platelet Count 321 10^3/cmm (157-399); Red Blood Count 3.46 10^6/uL (3.85-5.65); Red Cell Distribution Width 14.2 % (12.1-15.1)
[2023-01-18 07:45] LABS: Vancomycin Trough 19.4 ug/mL (10-15)
[2023-01-18] MEDS: insulin lispro 100 unit/1 mL SUBCUT ×4 (08:17→21:05)
[2023-01-18] MEDS: budesonide 0.5 mg/2 mL Neb INHALATION (08:47)
[2023-01-18] MEDS: vancomycin 1,500 MG/300 ML PIGGYBACK 200 MG IV (09:21)
[2023-01-18] MEDS: NON-FORMULARY MEDICATION (Pentoxifylline 400 mg tablet extended release) 400 EACH PO ×3 (09:38→21:04)
[2023-01-18] MEDS: bumetanide 1 mg Tablet PO (09:39)
[2023-01-18] MEDS: clopidogrel 75 mg Tablet PO (09:39)
[2023-01-18] MEDS: metoprolol tartrate 50 mg Tablet 100 MG PO ×2 (09:39→21:04)
--- NOTE | 2023-01-18 11:34 | P.PN_ITS ---
Subjective 2 Subjective: Doing okay with no chest pain or shortness of breath up in the chair. Vitals/I&O/Wt Last Vital Signs Temp 97.6 F 01/18/23 07:49 Pulse 56 L 01/18/23 08:54 Resp 20 H 01/18/23 08:48 BP 145/76 01/18/23 07:49 Pulse Ox 95 01/18/23 08:48 O2 Del Method Nasal Cannula 01/18/23 08:48 O2 Flow Rate 2 01/18/23 08:48 FiO2 28 01/18/23 00:20 01/17/23 01/18/23 01/18/23 22:59 06:59 14:59 Intake Total 390 / 1170 600 / 1770 240 / 240 Output Total 1000 / 1000 1700 / 2700 Balance -610 / 170 -1100 / -930 240 / 240 Weight last 48 hrs Weight 309 lb 11.2 oz Weight 309 lb 14.4 oz Physical Exam 2 Const: COMMON NORMALS: no acute distress, patient oriented x3, no limitations, alert and well nourished HENMT: COMMON NORMALS: normocephalic, atraumatic, hearing grossly normal bilaterally and gingiva normal HEAD & SCALP: normocephalic and atraumatic Eye: COMMON NORMALS: Equal, round and reactive pupils present and EOMs intact bilaterally GENERAL EYE: appearance normal, both eyes and all related structures PUPIL: Yes Equal, round and reactive pupils present Neck/C-Spine: COMMON NORMALS: no JVD GENERAL: Yes normal visual inspection CAROTIDS: Yes normal carotid upstroke Chest: COMMONS NORMALS: normal inspection of the chest CHEST: Yes Symmetrical chest wall rise Resp: COMMON NORMALS: normal respiratory effort, No retractions, clear to auscultation bilaterally and percussion normal EFFORT & INSPECTION: Yes symmetric chest movement AUSCULTATION: clear to auscultation bilaterally P ERCUSSION: percussion normal Cardio: COMMON NORMALS: no JVD, regular rate, regular rhythm, S1 normal heart sound present, S2 normal heart sound present, No gallops present (Cardio), No clicks present (Cardio), No murmurs present (Cardio) and No rub (Cardio) R ATE: regular rate RHYTHM: regular rhythm HEART SOUNDS: S1 normal heart sound present and S2 normal heart sound present GI: COMMON NORMALS: Normal to inspection, nondistended, normoactive bowel sounds present, Soft to palpation and non-tender PALPATION: Yes Soft to palpation : COMMON NORMALS: Yes no CVA tenderness BLADDER/KIDNEY EXAM: Yes no CVA tenderness Back/Pelvis: COMMON NORMALS: no CVA tenderness Extremity: COMMON NORMALS: normal to inspection, full ROM, no joint enlargement, no clubbing, cyanosis or edema, no calf tenderness and no pedal edema (Mild pedal edema bilaterally.) Neuro: COMMON NORMALS: patient oriented x3, moves all extremities, no focal motor deficits and no sensory deficits noted SENSORIUM/ORIENTATION: Yes alert GAIT: Yes Normal gait present Psych: COMMON NORMALS: mental status grossly normal APPEARANCE: Yes grossly normal Skin: COMMON NORMALS: no rashes or lesions noted GENERAL SKIN EXAM: no rashes or lesions noted Urinary Catheter Management: [place]: Cath Placed During This Visit: yes Reason for Continuing Indwelling Catheter: Accurate Measurement of Urinary Output in Critically Ill Patients Urinary Catheter Date of Insertion: 01/12/23 Urinary Catheter Time of Insertion: 07:30 Data 01/18/23 07:10 01/17/23 16:43 Micro: Microbiology 01/12/23 06:50 Blood Culture - Final Blood NO GROWTH AFTER 5 DAYS A&P Assessment and plan (1) Non-ST elevation myocardial infarction (NSTEMI): In the setting of bacteremia and cellulitis. No active angina. Continue current medical therapy patient will benefit from Lexiscan stress test to rule out underlying ischemia. (2) Atrial fibrillation with rapid ventricular response: Back in sinus rhythm this morning continue rate controlling medication including Cardizem and beta-blockers. Patient can be switched to Eliquis 5 mg twice a day (3) Peripheral arterial disease: Stable treated medically. (4) Diastolic heart failure: Improved continue diuretics. Continue low-salt diet. Qualifiers: Heart failure chronicity: chronic Qualified Code(s): I50.32 - Chronic diastolic (congestive) heart failure Attestations 2 Medical Necessity Statement*: Patient still short of breath and being treated for cellulitis with IV antibiotic Coding Level of Care Code 14607 Diagnoses Non-ST elevation myocardial infarction (NSTEMI) I21.4 Atrial fibrillation with rapid ventricular response I48.91 Peripheral arterial disease I73.9 Chronic diastolic heart failure I50.32 Heart failure chronicity: chronic
[2023-01-18 12:22] LABS: Glucose Point of Care 255 mg/dL (70-110)
[2023-01-18 14:13] LABS: Anion Gap 18.4 (5-19); Blood Urea Nitrogen 58 mg/dL (8-23); Calcium 8.9 mg/dL (8.5-10.5); Carbon Dioxide 19 mmol/L (22-29); Chloride 100 mmol/L (98-107); Glomerular Filtration Rate 34.6 mL/min (90-130); Glucose 203 mg/dL (65-115); Osmolality Calculated 298 mOsm/kg (285-295); Potassium 4.4 mmol/L (3.5-5.1); Sodium 133 mmol/L (136-145)
[2023-01-18 17:05] LABS: Glucose Point of Care 286 mg/dL (70-110)
--- NOTE | 2023-01-18 17:40 | ECG_ITS ---
[facility] Test Date: 2023-01-19 Pat Name: Seema Del Rosario Department: Room: 111 Gender: Female Optimization Analyst: : 1955 Requested By: Jessica Hurtado Order Number: [id number] Jennie MD: Lauren Pagan M.D. Interpretive Statements NAME OF STUDY: LEXISCAN SESTAMIBI STRESS TEST INDICATION: Angina PROCEDURE: At the baseline, the blood pressure was 133 over 69 mm with a heart rate of 59 bpm. The electrocardiogram showed sinus rhythm, leftward axis with right bundle branch block. ??? The Lexiscan was infused over a period of 20 seconds. A total of 0.4 milligrams of Lexiscan was infused. The stress phase was continued for a total of 5 minutes. Heart rate at the end of the stress phase was 67 bpm with a blood pressure of 148/65 mmHg. The EKG at the peak infusion revealed no significant ST-T wave changes. The study was terminated due to protocol completion ??? Sestamibi was injected 20 seconds after the Lexiscan infusion. ??? Blood pressure at the end of the recovery phase was 153/72 mmHg with a heart rate of 66 beats per minute. ??? CONCLUSION: 1. No significant EKG changes with the LexiScan infusion. 2. No LexiScan induced chest pain or cardiac arrhythmia. 3. Normal blood pressure and heart rate response. 4. Sestamibi/sestamibi perfusion scan pending; see separate report. Electronically Signed On 01-21-2023 11:16:33 BACKUP ENGINEER by Lauren Pagan M.D. [id number]
--- NOTE | 2023-01-18 17:42 | PM.PN ---
Subjective Subjective: no new compalints, off 02 today, LE edema stable Medications: Reviewed: Yes Vitals/I&O/Wt Last Vital Signs Temp 98.1 F 01/18/23 16:00 Pulse 61 01/18/23 16:00 Resp 21 H 01/18/23 16:00 BP 161/72 01/18/23 16:00 Pulse Ox 94 01/18/23 16:00 O2 Del Method Room Air 01/18/23 16:00 O2 Flow Rate 2 01/18/23 08:48 FiO2 28 01/18/23 00:20 01/18/23 01/18/23 01/18/23 06:59 14:59 22:59 Intake Total 600 / 1770 480 / 480 Output Total 1700 / 2700 900 / 900 Balance -1100 / -930 -420 / -420 Weight last 48 hrs Weight 140.478 kg Weight 140.568 kg Physical Exam Narrative: General: No acute distress, AO x3 HEENT: PERRLA, pupils bilaterally equal and reactive, pallors not present Chest: Normal vesicular breath sounds, no added sounds, equal good air entry bilaterally CVS: S1-S2 regular, no murmurs, no tachycardia, no gallops, no rubs Abdomen: Soft, nontender, no organomegaly, bowel sounds present Neuro: No focal deficits, no facial deformity, AO x3, power 5/5 in all limbs Urinary Catheter Management: [place]: Cath Placed During This Visit: yes Reason for Continuing Indwelling Catheter: Accurate Measurement of Urinary Output in Critically Ill Patients Urinary Catheter Date of Insertion: 01/12/23 Urinary Catheter Time of Insertion: 07:30 Data 01/18/23 07:10 01/18/23 07:10 Micro: Microbiology 01/12/23 07:09 Blood Culture - Final Blood Achromobacter xylosoxidans sub A&P Assessment and plan (1) Cellulitis: Acute cellulitis to left lower extremity, redness and swelling continue to improve. Previsouly on vancomycin and Zosyn---> changed to levofloxacin in keeping with cx results CBC and CMP daily to review for infection response. CT bilateral lower extremity: Soft tissue edema left lower leg suspicion for cellulitis, no evidence of abscess, fluid collection, or osteomyelitis. / bottle blood culture gram-negative rods identified as achromobacter spp. (2) Chronic venous insufficiency: Wound care consulted, recommendations of Hydrofera Blue with kerlix. Dressing noted to be in place this morning. (3) Peripheral arterial disease: Continue in-depth conversation with risk factor modification. (4) Chronic obstructive pulmonary disease: Continue DuoNebs every 6 hours. Continue Pulmicort twice daily (5) CKD (chronic kidney disease): BUN and creatinine slightly increased today. 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 Daily BMP ordered (6) Atrial fibrillation with rapid ventricular response: Developed A-fib with RVR 01/14, off cardizem drip now continue po cardizem on a/c with full dose lovenox (7) Non-ST elevation myocardial infarction (NSTEMI): Patient denies chest pain this morning. Patient noted to be on 3 L nasal cannula. Denies shortness of breath this morning, although reported shortness of breath overnight with slight chest pain, this quickly resolved without intervention. Continue her Plavix, aspirin, full dose anticoagulation. Beta-walter added 01/15. Metoprolol increased to 100 twice daily. Continue Imdur. Cardiology consulted. Lexiscan stress test in am She appears compensated currently. continue Bumex. Plan Full code. Lovenox for DVT prophylaxis Attestations Medical Necessity Statement*: stress test tomorrow Coding Level of Care Code Acute Code for [facility] Diagnoses Cellulitis L03.90 Chronic venous insufficiency I87.2 Peripheral arterial disease I73.9 Chronic obstructive pulmonary disease J44.9 CKD (chronic kidney disease) N18.9 Atrial fibrillation with rapid ventricular response I48.91 Non-ST elevation myocardial infarction (NSTEMI) I21.4
[2023-01-18 20:37] LABS: Glucose Point of Care 289 mg/dL (70-110)
[2023-01-19] VITALS (15 sets, daily range): BP systolic 138–171; BP diastolic 60–86; PULSE 61–86; RESP 16–26; TEMP 36.7; O2SAT 94–98
[2023-01-19] MEDS: ipratropium-albuterol 3 mL Neb INHALATION ×3 (01:47→14:06)
[2023-01-19] MEDS: enoxaparin 120 mg/0.8 mL Syringe 110 MG SUBCUT (04:07)
[2023-01-19] MEDS: dilTIAZem 30 mg Tablet PO ×3 (04:07→15:41)
[2023-01-19] MEDS: oxyCODONE 5 mg IR Tab/Cap PO (04:07)
[2023-01-19] MEDS: duloxetine 30 mg Capsule PO (05:12)
[2023-01-19] MEDS: pantoprazole DR 40 mg Tablet PO (05:12)
[2023-01-19 05:55] LABS: Basophils # 0.1 10^3/uL (0.0-0.1); Basophils % 0.5 %; Eosinophils # 0.2 10^3/uL (0.0-0.8); Eosinophils % 2.5 %; Hematocrit 29.8 % (36-47); Lymphocytes # 1.3 10^3/uL (0.8-4.8); Lymphocytes % 13.9 %; Mean Corpuscular HGB Conc 29.5 g/dL (30-55); Mean Corpuscular Hemoglobin 27.8 pg (27-33); Mean Platelet Volume 10.2 fL (7.4-10.4); Monocytes # 0.5 10^3/uL (0.2-0.9); Monocytes % 5.8 %; Neutrophils # 6.93 10^3/uL (1.8-7.7); Nucleated Red Blood Cells % 0 %; Platelet Count 336 10^3/cmm (157-399); Red Blood Count 3.17 10^6/uL (3.85-5.65); Red Cell Distribution Width 14.3 % (12.1-15.1); White Blood Count 9.25 10^3/uL (3.29-11.43)
[2023-01-19 06:07] LABS: Glucose Point of Care 240 mg/dL (70-110)
[2023-01-19 06:14] LABS: Alanine Aminotransferase 17 U/L (0-33); Albumin Level 2.9 g/dL (3.5-5.2); Alkaline Phosphatase 115 U/L (35-105); Anion Gap 16.3 (5-19); Aspartate Amino Transferase 14 U/L (0-32); Blood Urea Nitrogen 51 mg/dL (8-23); Calcium 8.7 mg/dL (8.5-10.5); Carbon Dioxide 20 mmol/L (22-29); Chloride 103 mmol/L (98-107); Globulin 3.7 g/dL (1.3-4.6); Glucose 182 mg/dL (65-115); Osmolality Calculated 298 mOsm/kg (285-295); Potassium 4.3 mmol/L (3.5-5.1); Sodium 135 mmol/L (136-145); Total Bilirubin 0.4 mg/dL (0.15-1.2); Total Protein 6.6 g/dL (6.6-8.7)
[2023-01-19] MEDS: cloNIDine 0.1 mg Tablet PO ×2 (06:27→15:40)
[2023-01-19] MEDS: isosorbide mononitrate ER 60 mg Tablet 90 MG PO (06:29)
[2023-01-19] MEDS: aspirin 325 mg Tablet PO (06:31)
[2023-01-19] MEDS: allopurinol 100 mg Tablet PO (06:31)
[2023-01-19] MEDS: gabapentin 300 mg Capsule PO ×2 (06:47→11:32)
[2023-01-19] MEDS: regadenoson 0.4 Mg/5 ml Syringe IVP (07:28)
--- NOTE | 2023-01-19 08:00 | NMCV_ITS ---
NM omar perf SPECT r/s* [id number] Seema Del Rosario Age: 67 Gender: F : 1955 Exam Date: 01/19/2023 06:28 Ordering Phys: Jessica Hurtado MD Technologist: SELENE Esparza Exam Location: [facility] [address] Indications: CHEST PAIN STRESS TEST [facility] IMAGE PROTOCOL Rest/Stress 1 Lexiscan Day Radiopharmaceutical Dose (mCi) Administration Site Administered by Rest: Tc-99m 10.6 IV SELENE Stubbs Sestamibi Stress:Tc-99m 33.0 IV SELENE Stubbs Sestamibi Rest: 19-Jan-2023 60 Discovery 630 Stress: 19-Jan-2023 30 Discovery 630 0.4mg Lexiscan. Supine position only as patient was unable to lay prone. SPECT RESULTS Technical Quality: Excellent Raw Data Analysis: Normal Image Corrections: No attenuation or motion correction applied Summed Stress Score: 18 Summed Rest Score: 15 Summed Difference Score: 3 PERFUSION FINDINGS Moderate area of moderate to severely decreased tracer uptake, involving the mid and apical inferior, mid and apical anterior, apical septal, apical lateral and LV apex. Subtle areas of reversibility was noted in the apical septal, apical lateral and mid anterior regions. FUNCTIONAL RESULTS (calculated via Gated SPECT) Stress Image LV EF (%): 51 Stress EDV (mL):223 TID: 1.04 Stress ESV (mL):109 FUNCTIONAL FINDINGS: Segmental wall motion analysis revealed mild diffuse hypokinesia of the LV apex IMPRESSIONS 1. Myocardial perfusion imaging revealing moderate area of moderate to severely decreased tracer uptake, involving the anterior, inferior, septal and apical regions with a subtle areas of reversibility, suggesting myocardial scarring in the distribution of all the 3 coronary arteries with small areas of renée-infarction ischemia, predominantly involving the right coronary artery/left anterior sending artery territory. 2. LV ejection fraction of 51%. 3. LV wall motion analysis revealing mild diffuse hypokinesia of the LV apex. 4. Moderately dilated LV cavity with end-systolic volume of 109 ml. No similar previous studies are available for comparison Dr Valentin Partida MD [facility] (Electronically Signed) Final Date: 19 January 2023 13:50 S
[2023-01-19] MEDS: clopidogrel 75 mg Tablet PO (08:42)
[2023-01-19] MEDS: NON-FORMULARY MEDICATION (Pentoxifylline 400 mg tablet extended release) 400 EACH PO ×2 (08:42→15:40)
[2023-01-19] MEDS: bumetanide 1 mg Tablet PO (08:42)
[2023-01-19] MEDS: metoprolol tartrate 50 mg Tablet 100 MG PO (08:42)
[2023-01-19 11:17] LABS: Glucose Point of Care 270 mg/dL (70-110)
--- NOTE | 2023-01-19 11:27 | PC.SOCIAL ---
IMM Updated Updated pt on IMM. No questions voiced. Provided pt a copy. Initialed, dated, & timed copy in chart.
[2023-01-19] MEDS: insulin lispro 100 unit/1 mL SUBCUT (11:33)
--- NOTE | 2023-01-19 13:16 | PM.DCS ---
Discharge Providers Date of Admission: 01/12/23 09:35 Date of Discharge: January 19, 2023 Attending Provider at Admission: Augustine Tolentino MD Attending Provider at Discharge: Kim Woods MD Primary Care Provider: Jeanine Solares MD Diagnoses at Discharge Discharge Diagnosis (1) Cellulitis: Status: Acute (2) Chronic venous insufficiency: Status: Acute (3) Peripheral arterial disease: Status: Acute (4) Chronic obstructive pulmonary disease: Status: Acute (5) CKD (chronic kidney disease): Status: Acute (6) Atrial fibrillation with rapid ventricular response: Status: Resolved (7) Non-ST elevation myocardial infarction (NSTEMI): Status: Resolved Reason for Visit Reason for Visit: WEAKNESS/FALL Hospital Course Hospital Course Patient admitted for acute cellulitis of left lower extremity. She was treated with Vanco and Zosyn initially and once cultures are back she was switched to levofloxacin per the culture results. She had 1 out of 4 blood culture positive for gram-negative rods identified as Achromobacter species. Wound care was consulted and recommendations of Hydrofera Blue and Kerlix were administered. During hospital stay patient also experienced an NSTEMI. Cardiology was consulted and she had a stress test done. She did have areas of fixed defect with small areas of reversible defect suggesting myocardial scarring with possible renée-infarct ischemia. Discussed the results with cardiology. Patient was chest pain-free with normal regards of chest pain ischemic burden was low. It was decided to treat patient medically. Patient requested discharge since she had to go to the the next morning. Patient will be given a follow-up appointment at discharge with nurse physician within a week and with cardiology within a month. Last negative blood cultures January 14. Patient will be sent home for treatment of total 14 days of levofloxacin last negative blood culture. Due to DANYA it was ordered as every 48 hours. Physical Exam Narrative: General: No acute distress, AO x3 HEENT: PERRLA, pupils bilaterally equal and reactive, pallors not present Chest: Normal vesicular breath sounds, no added sounds, equal good air entry bilaterally CVS: S1-S2 regular, no murmurs, no tachycardia, no gallops, no rubs Abdomen: Soft, nontender, no organomegaly, bowel sounds present Neuro: No focal deficits, no facial deformity, AO x3, Urinary Catheter Management: [place]: Cath Placed During This Visit: yes Reason for Continuing Indwelling Catheter: Accurate Measurement of Urinary Output in Critically Ill Patients Urinary Catheter Date of Insertion: 01/12/23 Urinary Catheter Time of Insertion: 07:30 Discharge Data Studies Completed and Pending Completed Studies During Hospitalization Category Date Time Status CT cervical spin wo con* 24660 Stat Cat Scan 01/12/23 06:[address] head wo con* 11382 Stat Cat Scan 01/12/23 06:[address] lower leg LT wo con* [id number] Stat Cat Scan 01/13/23 13:20 Completed CXRP [XR chest 1V portable [id number]] Stat Exams 01/14/23 04:39 Completed Cardiac Stress Test MIBI [Sestamibi Stress Test Request Exams 01/18/23 17:40 Draft ] Routine XR chest 1V portable [id number] Stat Exams 01/12/23 07:03 Completed XR foot LT min 3V* 43388 Stat Exams 01/12/23 08:31 Completed XR foot RT min 3V* 31654 Stat Exams 01/12/23 08:31 Completed XR hip RT 2-3V wo/w pel* [id number] Stat Exams 01/12/23 06:47 Completed XR knee RT 3V* [id number] Stat Exams 01/12/23 06:58 Completed XR tibia fibula LT 2V [id number] Stat Exams 01/12/23 08:31 Completed XR tibia fibula RT 2V 14297 Stat Exams 01/12/23 08:31 [place] [id number] Routine Ultrasound 01/12/23 10:47 Completed Pending at discharge Category Date Time Status NM omar perf SPECT r/s* 36092 Routine Nuc Med 01/19/23 08:00 Taken Radiology Impressions Hip/Pelvis X-Ray 01/12/23 06:47 IMPRESSION: Degenerative changes. Knee X-Ray 01/12/23 06:58 IMPRESSION: Degenerative changes. Foot X-Ray 01/12/23 08:31 IMPRESSION: Irregularity of the 4th and 5th proximal phalanx, probably post traumatic but possibly remote. Tibia/Fibula X-Ray 01/12/23 08:31 IMPRESSION: No acute abnormality. Chest X-Ray 01/14/23 04:39 IMPRESSION: Cardiomegaly with mild congestion. Laboratory Results WBC 9.25 10^3/uL (3.29-11.43) 01/19/23 05:03 RBC 3.17 10^6/uL (3.85-5.65) L 01/19/23 05:03 Hgb 8.80 g/dL (11.27-16.99) L 01/19/23 05:03 Hct 29.8 % (36-47) L 01/19/23 05:03 MCV 94.0 fl (85-98) 01/19/23 05:03 MCH 27.8 pg (27-33) 01/19/23 05:03 MCHC 29.5 g/dL (30-55) L 01/19/23 05:03 RDW 14.3 % (12.1-15.1) 01/19/23 05:03 Plt Count 336 10^3/cmm (157-399) 01/19/23 05:03 MPV 10.2 fL (7.4-10.4) 01/19/23 05:03 Neut % (Auto) 75.0 % 01/19/23 05:03 Lymph % (Auto) 13.9 % 01/19/23 05:03 Mason % (Auto) 5.8 % 01/19/23 05:03 Eos % (Auto) 2.5 % 01/19/23 05:03 Baso % (Auto) 0.5 % 01/19/23 05:03 Neut # (Auto) 6.93 10^3/uL (1.8-7.7) 01/19/23 05:03 Lymph # (Auto) 1.3 10^3/uL (0.8-4.8) 01/19/23 05:03 Mason # (Auto) 0.5 10^3/uL (0.2-0.9) 01/19/23 05:03 Eos # (Auto) 0.2 10^3/uL (0.0-0.8) 01/19/23 05:03 Baso # (Auto) 0.1 10^3/uL (0.0-0.1) 01/19/23 05:03 Nucleated RBC % (auto) 0 % 01/19/23 05:03 Nucleated RBCs # 0.0 /100WBC 01/19/23 05:03 D-Dimer 2.83 ug/mLFEU (0-0.59) H 01/15/23 06:08 Specimen Type Arterial 01/14/23 04:44 Sample Site Radial, right 01/14/23 04:44 ABG pH 7.40 (7.35-7.45) 01/14/23 04:44 ABG pCO2 36.4 mmHg (35-45) 01/14/23 04:44 ABG pO2 59.9 mmHg (80.0-100.0) L 01/14/23 04:44 ABG HCO3 22.4 mmol/L (22-26) 01/14/23 04:44 ABG O2 Saturation 90.5 01/14/23 04:44 ABG Base Excess -2.1 mmol/L (-2.0-2.0) L 01/14/23 04:44 Tavares Test Pos 01/14/23 04:44 A-a O2 Gradient 5.8 mmHg (5-10) 01/14/23 04:44 Hematocrit 28.6 % (37-47) L 01/14/23 04:44 Hgb O2 Saturation 89.3 % (95-100) L 01/14/23 04:44 Carboxyhemoglobin 1.0 %THgb (0.4-20.1) 01/14/23 04:44 Methemoglobin 0.3 % (0.4-1.5) L 01/14/23 04:44 Total Hemoglobin 9.3 g/dL (12-16) L 01/14/23 04:44 Sodium 134.0 mmol/L (131-143) 01/14/23 04:44 Potassium 4.2 mmol/L (3.5-5.0) 01/14/23 04:44 Glucose 205.0 mg/dL (70-115) H 01/14/23 04:44 Ionized Calcium 1.1 mmol/L (1.1-1.4) 01/14/23 04:44 O2 Delivery Device Bipap 01/14/23 04:44 O2 Liters/Min 5.0 % 01/14/23 04:44 CPAP 16.0 cmH20 01/14/23 04:44 [employer] ID [email or web address] 01/14/23 04:44 Sodium 135 mmol/L (136-145) L 01/19/23 05:03 Potassium 4.3 mmol/L (3.5-5.1) 01/19/23 05:03 Chloride 103 mmol/L (98-107) 01/19/23 05:03 Carbon Dioxide 20 mmol/L (22-29) L 01/19/23 05:03 Anion Gap 16.3 (5-19) 01/19/23 05:03 BUN 51 mg/dL (8-23) H 01/19/23 05:03 Creatinine 1.7 mg/dL (0.5-0.9) H 01/19/23 05:03 GFR Calculation 30.0 mL/min (90-130) L 01/19/23 05:03 Glucose 182 mg/dL (65-115) H 01/19/23 05:03 POC Glucose 270 mg/dL (70-110) H 01/19/23 11:14 Calculated Osmolality 298 mOsm/kg (285-295) H 01/19/23 05:03 Lactic Acid 1.8 mmol/L (0.5-2.2) 01/12/23 06:50 Calcium 8.7 mg/dL (8.5-10.5) 01/19/23 05:03 Magnesium 2.3 mg/dL (1.7-2.3) 01/16/23 00:55 Total Bilirubin 0.4 mg/dL (0.15-1.2) 01/19/23 05:03 AST 14 U/L (0-32) 01/19/23 05:03 ALT 17 U/L (0-33) 01/19/23 05:03 Alkaline Phosphatase 115 U/L (35-105) H 01/19/23 05:03 Creatine Kinase 723 U/L (26-192) H* 01/14/23 06:00 Troponin T Baseline 53 ng/L (0-10) H 01/14/23 17:35 Troponin T 120 Minute 72.42 ng/L (0-10) H 01/14/23 20:07 Delta Troponin T 19.42 ABS# (0-10) H* 01/14/23 20:07 Troponin T Hi Sens 6Hr 103.0 ng/L (0-10) H 01/14/23 23:19 Troponin T Hi Sens 6Hr Delta 50.0 ng/L (0-12) H* 01/14/23 23:19 NT-Pro-B Natriuret Pep 7525 pg/mL (0-125) H 01/15/23 06:08 Total Protein 6.6 g/dL (6.6-8.7) 01/19/23 05:03 Albumin 2.9 g/dL (3.5-5.2) L 01/19/23 05:03 Globulin 3.7 g/dL (1.3-4.6) 01/19/23 05:03 Lipase 8 U/L (13-60) L 01/12/23 06:50 Urine Color Yellow (Yellow) 01/12/23 07:40 Urine Appearance Clear (CLEAR) 01/12/23 07:40 Urine pH 5 (5-7) 01/12/23 07:40 Ur Specific [place] 1.015 (1.005-1.030) 01/12/23 07:40 Urine Protein 3+ (Negative) H 01/12/23 07:40 Urine Glucose (UA) 1+ (Normal) H 01/12/23 07:40 Urine Ketones 1+ (Negative) H 01/12/23 07:40 Urine Blood 2+ (Negative) H 01/12/23 07:40 Urine Nitrate Negative (Negative) 01/12/23 07:40 Urine Bilirubin Neg (Negative) 01/12/23 07:40 Urine Urobilinogen Norm mg/dL (Negative) 01/12/23 07:40 Ur Leukocyte Esterase Negative (Negative) 01/12/23 07:40 Urine RBC 0-4 /hpf (0-2) H 01/12/23 07:40 Urine WBC 0-4 /hpf (0-5) H 01/12/23 07:40 Ur Squamous Epith Cells Rare /hpf (0-5) 01/12/23 07:40 Amorphous Sediment Not Reportable 01/12/23 07:40 Urine Bacteria Trace /hpf (NONE) 01/12/23 07:40 Nasal Influ A H1 2009 PCR Not detected (NOT DETECT) 01/12/23 07:15 Vancomycin Trough 19.4 ug/mL (10-15) H 01/18/23 07:10 Serum Ketones Negative (Negative) 01/12/23 06:50 Coronavirus 229E (PCR) Not detected (NOT DETECT) 01/12/23 07:15 Influenza A (H1) PCR Not detected (NOT DETECT) 01/12/23 07:15 Influenza A (H3) PCR Not detected (NOT DETECT) 01/12/23 07:15 Influenza Type A (PCR) Not detected (NOT DETECT) 01/12/23 07:15 Influenza Type B (PCR) Not detected (NOT DETECT) 01/12/23 07:15 SARS-CoV-2 (PCR) Not detected (NOT DETECT) 01/12/23 07:15 Vitals Last Vital Signs Temp 98.0 F 01/19/23 09:06 Pulse 61 01/19/23 09:06 Resp 20 H 01/19/23 09:06 BP 138/60 01/19/23 09:06 Pulse Ox 94 01/19/23 09:06 O2 Del Method Room Air 01/19/23 09:06 O2 Flow Rate 2 01/18/23 08:48 FiO2 28 01/19/23 04:40 Discharge Plan Discharge Patient Disposition: Home Condition: Stable Prescriptions: New levofloxacin 750 mg tablet 750 mg PO Q48H 10 Days Qty: 5 0RF Continued Tresiba FlexTouch U-100 100 unit/mL (3 mL) insulin pen 42 unit SUBCUT BID insulin lispro [Humalog KwikPen Insulin] 100 unit/mL insulin pen 30 unit SUBCUT TID pentoxifylline 400 mg tablet extended release 400 mg PO TID Qty: 90 4RF Rx Instructions: must administer with a meal/food Stiolto Respimat 2.5-2.5 mcg/actuation mist 2 puff inhalation DAILY@07 Qty: 4 5RF clonidine HCl 0.1 mg tablet 0.1 mg PO Q8H simvastatin 10 mg tablet 10 mg PO DAILY@2200 allopurinol 100 mg tablet 100 mg PO DAILY@0700 isosorbide mononitrate 60 mg tablet extended release 24 hr 90 mg PO DAILY@0700 gabapentin 300 mg capsule 300 mg PO TID@, polyethylene glycol 3350 17 gram/dose powder 17 g PO DAILY PRN (Reason: Constipation) aspirin 325 mg Tablet 325 mg PO DAILY@0700 Hold Instructions: Resume on 09/09/19. pantoprazole 40 mg tablet,delayed release (DR/EC) 40 mg PO QAM duloxetine 30 mg capsule,delayed release(DR/EC) 30 mg PO QAM bumetanide 1 mg tablet 1 mg PO QAM ergocalciferol (vitamin D2) 1,250 mcg (50,000 unit) capsule 50,000 unit PO Q7D Rx Instructions: on Farxiga 10 mg tablet 10 mg PO QAM tramadol 50 mg tablet 50 mg PO BID PRN (Reason: Pain) Held amitriptyline 25 mg tablet 25 mg PO BEDTIME@2200 Hold Instructions: see pcp Discontinued amlodipine 10 mg tablet 10 mg PO QAM No Action diltiazem HCl 120 mg capsule,extended release 24hr 120 mg PO DAILY Qty: 90 3RF Eliquis 5 mg tablet 5 mg PO BID Qty: 180 3RF metoprolol tartrate 50 mg tablet 100 mg PO BID Qty: 180 3RF clopidogrel 75 mg tablet 75 mg PO DAILY Qty: 90 3RF (DME) Superannuation Funds Manager brace See Rx Instructions .Route .MEDSUPPLY Qty: 1 0RF Rx Instructions: As directed Discharge Orders: Discharge Order (Routine); Ordered 01/19/23 Ordered By: Kim Woods Referrals: Jeanine Solares MD [Primary Care Provider] - 01/26/23 1:15 pm Valentin Partida MD [Physician] - 1 month (During your appointment with Priti Figueredo you will be scheduled for an follow-up with Dr. Partida.) Priti Figueredo FNP [Nurse Practitioner] - 01/22/23 9:30 am Discharge Diet: Cardiac and Diabetic Discharge Activity: Increase activity as tolerated Patient Instructions: Metoprolol (By mouth) (Lopressor, Toprol XL), Diltiazem (By mouth), Levofloxacin (By mouth) (Levaquin, Levaquin Leva-alec), Clopidogrel (By mouth) (Plavix), Apixaban (By mouth) (Eliquis), Heart Attack (DC), Heart Failure (DC), A-fib (Atrial Fibrillation) (DC), CHF Stoplight, Opioid Safety, Post Heart Attack Stoplight Discharge Attestations Time Spent in Discharge Care*: greater than 30 min Quality Metrics Clinical Quality Measures [ No reported AMI, CVA or VTE this stay] Coding Level of Care Code 60991 Total time (in minutes) for Discharge: 35 Diagnoses Cellulitis L03.90 Chronic venous insufficiency I87.2 Peripheral arterial disease I73.9 Chronic obstructive pulmonary disease J44.9 CKD (chronic kidney disease) N18.9 Atrial fibrillation with rapid ventricular response I48.91 Non-ST elevation myocardial infarction (NSTEMI) I21.4
--- NOTE | 2023-01-19 13:28 | PM.PN ---
Subjective Subjective: This patient is admitted to hospital with the bilateral leg cellulitis. She also was found to be in atrial fibrillation with rapid ventricular rate. She had evidence of her diastolic heart failure. She had a few episodes of chest pain last week. Has not had any recurrence of chest pain for the last more than 5 days. She had a Myocardial perfusion imaging today. She was found to have areas of fixed defect to the small areas of reversible defects, suggesting myocardial scarring with possible renée-infarction ischemia. Medications: Medication Review Details: Current Medications Acetaminophen (Acetaminophen 325 Mg Tablet) 650 mg PO Q6H PRN PRN Reason: Mild/Mod Pain Or Temp >/= 101 Albuterol/Ipratropium (Ipratropium-Albuterol 3 Ml Neb) 3 ml INHALATION Q6H.RESP [facility] Last Admin: 01/19/23 08:14 Dose: 3 ml Allopurinol (Allopurinol 100 Mg Tablet) 100 mg PO DAILY@0700 [facility] Last Admin: 01/19/23 06:31 Dose: 100 mg Aminophylline (Aminophylline 25 Mg/Ml Sdv 10 Ml) 25 mg IVP Q2M PRN PRN Reason: see dose instructions Stop: 01/20/23 07:07 Aspirin (Aspirin 325 Mg Tablet) 325 mg PO DAILY@0700 [facility] Last Admin: 01/19/23 06:31 Dose: 325 mg Budesonide (Budesonide 0.5 Mg/2 Ml Neb) 0.5 mg INHALATION BID.RESPIRATORY [facility] Last Admin: 01/19/23 08:17 Dose: Not Given Bumetanide (Bumetanide 1 Mg Tablet) 1 mg PO DAILY [facility] Last Admin: 01/19/23 08:42 Dose: 1 mg Clonidine HCl (Clonidine 0.1 Mg Tablet) 0.1 mg PO Q8H [facility] Last Admin: 01/19/23 06:27 Dose: 0.1 mg Clopidogrel Bisulfate (Clopidogrel 75 Mg Tablet) 75 mg PO DAILY [facility] Last Admin: 01/19/23 08:42 Dose: 75 mg Dextrose (Dextrose 50% Syringe 50 Ml) 25 ml IVP ONCE PRN; Protocol PRN Reason: hypoglycemia protocol Dextrose (Dextrose 50% Syringe 50 Ml) 50 ml IVP PRN PRN; Protocol PRN Reason: hypoglycemia protocol Diltiazem HCl (Diltiazem 30 Mg Tablet) 30 mg PO Q6H [facility] Last Admin: 01/19/23 11:28 Dose: 30 mg Duloxetine HCl (Duloxetine 30 Mg Capsule) 30 mg PO QAM [facility] Last Admin: 01/19/23 05:12 Dose: 30 mg Enoxaparin Sodium (Enoxaparin 120 Mg/0.8 Ml Syringe) 110 mg SUBCUT Q12H [facility] Last Admin: 01/19/23 04:07 Dose: 110 mg Gabapentin (Gabapentin 300 Mg Capsule) 300 mg PO TID@07,12,19 [facility] Last Admin: 01/19/23 11:32 Dose: 300 mg Dextrose (D5w) 500 mls @ 0 mls/hr IV ONCE PRN; Protocol PRN Reason: Adult Acute Hypoglycemia Prot Levofloxacin/Dextrose (Levaquin-D5w) 750 mg in 150 mls @ 100 mls/hr IV Q48H [facility]; Protocol Insulin Human Lispro (Insulin Lispro 100 Unit/1 Ml) 0 unit SUBCUT WM&BEDTIME [facility]; Protocol Last Admin: 01/19/23 11:33 Dose: 12 unit Isosorbide Mononitrate (Isosorbide Mononitrate Er 60 Mg Tablet) 90 mg PO DAILY@0700 [facility] Last Admin: 01/19/23 06:29 Dose: 90 mg Metoprolol Tartrate (Metoprolol Tartrate 50 Mg Tablet) 100 mg PO BID@0900,2100 [facility] Last Admin: 01/19/23 08:42 Dose: 100 mg Nitroglycerin (Nitroglycerin 0.4 Mg Sublingual Tablet) 0.4 mg SUBLINGUAL Q5M PRN PRN Reason: CHEST PAIN Stop: 01/20/23 07:07 Non-Formulary Medication (Insulin Degludec [Tresiba Flextouch U-100]) 42 unit SUBCUT BID [facility] Last Admin: 01/19/23 08:42 Dose: Not Given Non-Formulary Medication (Pentoxifylline) 400 mg PO TID [facility] Last Admin: 01/19/23 08:42 Dose: 400 mg Ondansetron HCl (Ondansetron 2 Mg/Ml Sdv 2 Ml) 4 mg IVP Q6H PRN PRN Reason: NAUSEA AND VOMITING Oxycodone HCl (Oxycodone 5 Mg Ir Tab/Cap) 5 mg PO Q6H PRN PRN Reason: SEVERE PAIN Last Admin: 01/19/23 04:07 Dose: 5 mg Pantoprazole Sodium (Pantoprazole Dr 40 Mg Tablet) 40 mg PO QAM [facility] Last Admin: 01/19/23 05:12 Dose: 40 mg Vitals/I&O/Wt Last Vital Signs Temp 98.0 F 01/19/23 09:06 Pulse 61 01/19/23 09:06 Resp 20 H 01/19/23 09:06 BP 138/60 01/19/23 09:06 Pulse Ox 94 01/19/23 09:06 O2 Del Method Room Air 01/19/23 09:06 O2 Flow Rate 2 01/18/23 08:48 FiO2 28 01/19/23 04:40 01/18/23 01/19/23 01/19/23 22:59 06:59 14:59 Intake Total 240 / 1020 840 / 840 Output Total 1950 / 2850 750 / 3600 Balance -1710 / -1830 -750 / -2580 840 / 840 Weight last 48 hrs Weight 309 lb 11.2 oz Physical Exam Narrative: GENERAL: The patient is alert and oriented times three. Not in any acute distress. Morbidly obese HEENT: No significant pallor, icterus or lymphadenopathy.Oral cavity: There are no mucous membrane lesions. NECK: Trachea appears to be central. No masses noted. No JVD or thyromegaly appreciated. RESPIRATORY: Chest is symmetrical. No intercostals muscle retraction or any accessory muscle activation. There is no chest wall tenderness. Breath sounds are heard bilaterally. No rales or rhonchi heard. No evidence of any consolidation. BREASTS: Deferred. HEART: The heart sounds are normal. No S3 or S4. No significant murmurs. No pericardial rub ABDOMEN: No vessel pulsations or distention. No tenderness. No organomegaly appreciated. Bowel sounds are normally heard. : Deferred. RECTAL: Deferred. LYMPHATIC: No lymphadenopathy noted in the neck. EXTREMITIES: 1-2+ edema both lower extremities. Both extremities are bandaged. MUSCULOSKELETAL: No acute joint deformities or swelling SKIN: There are no significant rashes or ecchymosis NEUROPSYCHIATRIC: The patient is alert and oriented x3. Appears to be in a good mood. No tremors or rigidity noted. Urinary Catheter Management: [place]: Cath Placed During This Visit: yes Reason for Continuing Indwelling Catheter: Accurate Measurement of Urinary Output in Critically Ill Patients Urinary Catheter Date of Insertion: 01/12/23 Urinary Catheter Time of Insertion: 07:30 Data 01/19/23 05:03 01/19/23 05:03 Other Labs: Laboratory Last Values WBC 9.25 10^3/uL (3.29-11.43) 01/19/23 05:03 RBC 3.17 10^6/uL (3.85-5.65) L 01/19/23 05:03 Hgb 8.80 g/dL (11.27-16.99) L 01/19/23 05:03 Hct 29.8 % (36-47) L 01/19/23 05:03 MCV 94.0 fl (85-98) 01/19/23 05:03 MCH 27.8 pg (27-33) 01/19/23 05:03 MCHC 29.5 g/dL (30-55) L 01/19/23 05:03 RDW 14.3 % (12.1-15.1) 01/19/23 05:03 Plt Count 336 10^3/cmm (157-399) 01/19/23 05:03 MPV 10.2 fL (7.4-10.4) 01/19/23 05:03 Neut % (Auto) 75.0 % 01/19/23 05:03 Lymph % (Auto) 13.9 % 01/19/23 05:03 Andrew % (Auto) 5.8 % 01/19/23 05:03 Eos % (Auto) 2.5 % 01/19/23 05:03 Baso % (Auto) 0.5 % 01/19/23 05:03 Neut # (Auto) 6.93 10^3/uL (1.8-7.7) 01/19/23 05:03 Lymph # (Auto) 1.3 10^3/uL (0.8-4.8) 01/19/23 05:03 Andrew # (Auto) 0.5 10^3/uL (0.2-0.9) 01/19/23 05:03 Eos # (Auto) 0.2 10^3/uL (0.0-0.8) 01/19/23 05:03 Baso # (Auto) 0.1 10^3/uL (0.0-0.1) 01/19/23 05:03 Nucleated RBC % (auto) 0 % 01/19/23 05:03 Nucleated RBCs # 0.0 /100WBC 01/19/23 05:03 D-Dimer 2.83 ug/mLFEU (0-0.59) H 01/15/23 06:08 Specimen Type Arterial 01/14/23 04:44 Sample Site Radial, right 01/14/23 04:44 ABG pH 7.40 (7.35-7.45) 01/14/23 04:44 ABG pCO2 36.4 mmHg (35-45) 01/14/23 04:44 ABG pO2 59.9 mmHg (80.0-100.0) L 01/14/23 04:44 ABG HCO3 22.4 mmol/L (22-26) 01/14/23 04:44 ABG O2 Saturation 90.5 01/14/23 04:44 ABG Base Excess -2.1 mmol/L (-2.0-2.0) L 01/14/23 04:44 Tavares Test Pos 01/14/23 04:44 A-a O2 Gradient 5.8 mmHg (5-10) 01/14/23 04:44 Hematocrit 28.6 % (37-47) L 01/14/23 04:44 Hgb O2 Saturation 89.3 % (95-100) L 01/14/23 04:44 Carboxyhemoglobin 1.0 %THgb (0.4-20.1) 01/14/23 04:44 Methemoglobin 0.3 % (0.4-1.5) L 01/14/23 04:44 Total Hemoglobin 9.3 g/dL (12-16) L 01/14/23 04:44 Sodium 134.0 mmol/L (131-143) 01/14/23 04:44 Potassium 4.2 mmol/L (3.5-5.0) 01/14/23 04:44 Glucose 205.0 mg/dL (70-115) H 01/14/23 04:44 Ionized Calcium 1.1 mmol/L (1.1-1.4) 01/14/23 04:44 O2 Delivery Device Bipap 01/14/23 04:44 O2 Liters/Min 5.0 % 01/14/23 04:44 CPAP 16.0 cmH20 01/14/23 04:44 Dungeon Master ID [email or web address] 01/14/23 04:44 Sodium 135 mmol/L (136-145) L 01/19/23 05:03 Potassium 4.3 mmol/L (3.5-5.1) 01/19/23 05:03 Chloride 103 mmol/L (98-107) 01/19/23 05:03 Carbon Dioxide 20 mmol/L (22-29) L 01/19/23 05:03 Anion Gap 16.3 (5-19) 01/19/23 05:03 BUN 51 mg/dL (8-23) H 01/19/23 05:03 Creatinine 1.7 mg/dL (0.5-0.9) H 01/19/23 05:03 GFR Calculation 30.0 mL/min (90-130) L 01/19/23 05:03 Glucose 182 mg/dL (65-115) H 01/19/23 05:03 POC Glucose 270 mg/dL (70-110) H 01/19/23 11:14 Calculated Osmolality 298 mOsm/kg (285-295) H 01/19/23 05:03 Lactic Acid 1.8 mmol/L (0.5-2.2) 01/12/23 06:50 Calcium 8.7 mg/dL (8.5-10.5) 01/19/23 05:03 Magnesium 2.3 mg/dL (1.7-2.3) 01/16/23 00:55 Total Bilirubin 0.4 mg/dL (0.15-1.2) 01/19/23 05:03 AST 14 U/L (0-32) 01/19/23 05:03 ALT 17 U/L (0-33) 01/19/23 05:03 Alkaline Phosphatase 115 U/L (35-105) H 01/19/23 05:03 Creatine Kinase 723 U/L (26-192) H* 01/14/23 06:00 Troponin T Baseline 53 ng/L (0-10) H 01/14/23 17:35 Troponin T 120 Minute 72.42 ng/L (0-10) H 01/14/23 20:07 Delta Troponin T 19.42 ABS# (0-10) H* 01/14/23 20:07 Troponin T Hi Sens 6Hr 103.0 ng/L (0-10) H 01/14/23 23:19 Troponin T Hi Sens 6Hr Delta 50.0 ng/L (0-12) H* 01/14/23 23:19 NT-Pro-B Natriuret Pep 7525 pg/mL (0-125) H 01/15/23 06:08 Total Protein 6.6 g/dL (6.6-8.7) 01/19/23 05:03 Albumin 2.9 g/dL (3.5-5.2) L 01/19/23 05:03 Globulin 3.7 g/dL (1.3-4.6) 01/19/23 05:03 Lipase 8 U/L (13-60) L 01/12/23 06:50 Urine Color Yellow (Yellow) 01/12/23 07:40 Urine Appearance Clear (CLEAR) 01/12/23 07:40 Urine pH 5 (5-7) 01/12/23 07:40 Ur Specific [place] 1.015 (1.005-1.030) 01/12/23 07:40 Urine Protein 3+ (Negative) H 01/12/23 07:40 Urine Glucose (UA) 1+ (Normal) H 01/12/23 07:40 Urine Ketones 1+ (Negative) H 01/12/23 07:40 Urine Blood 2+ (Negative) H 01/12/23 07:40 Urine Nitrate Negative (Negative) 01/12/23 07:40 Urine Bilirubin Neg (Negative) 01/12/23 07:40 Urine Urobilinogen Norm mg/dL (Negative) 01/12/23 07:40 Ur Leukocyte Esterase Negative (Negative) 01/12/23 07:40 Urine RBC 0-4 /hpf (0-2) H 01/12/23 07:40 Urine WBC 0-4 /hpf (0-5) H 01/12/23 07:40 Ur Squamous Epith Cells Rare /hpf (0-5) 01/12/23 07:40 Amorphous Sediment Not Reportable 01/12/23 07:40 Urine Bacteria Trace /hpf (NONE) 01/12/23 07:40 Nasal Influ A H1 2008 PCR Not detected (NOT DETECT) 01/12/23 07:15 Vancomycin Trough 19.4 ug/mL (10-15) H 01/18/23 07:10 Serum Ketones Negative (Negative) 01/12/23 06:50 Coronavirus 229E (PCR) Not detected (NOT DETECT) 01/12/23 07:15 Influenza A (H1) PCR Not detected (NOT DETECT) 01/12/23 07:15 Influenza A (H3) PCR Not detected (NOT DETECT) 01/12/23 07:15 Influenza Type A (PCR) Not detected (NOT DETECT) 01/12/23 07:15 Influenza Type B (PCR) Not detected (NOT DETECT) 01/12/23 07:15 SARS-CoV-2 (PCR) Not detected (NOT DETECT) 01/12/23 07:15 Micro: Microbiology 01/14/23 11:50 Blood Culture - Final Blood NO GROWTH AFTER 5 DAYS 01/14/23 12:05 Blood Culture - Final Blood NO GROWTH AFTER 5 DAYS 01/12/23 07:09 Blood Culture - Final Blood Achromobacter xylosoxidans sub A&P Assessment and plan (1) Non-ST elevation myocardial infarction (NSTEMI): Patient has not had any recurrence of chest pain for the last 5 days. The Myocardial perfusion imaging results were discussed with the patient and her family in detail. Since the patient has no recurrence of chest pain and also since the ischemic burden is low, it might be appropriate to continue the medical treatment. However the limitations of the stress test were discussed in detail. Patient is wanting to hold off on any invasive/interventional procedures at this time. She seems understand implications. (2) Atrial fibrillation with rapid ventricular response: May continue on the current medications. Patient is on long-term oral anticoagulation. (3) Cellulitis and abscess of left leg: Antibiotic treatment as per the primary (4) Atherosclerosis of coronary artery of [place] heart without angina pectoris: As mentioned above Qualifiers: Coronary Disease-Associated Artery/Lesion type: [place] artery Qualified Code(s): I25.10 - Atherosclerotic heart disease of [place] coronary artery without angina pectoris (5) CKD (chronic kidney disease): The kidney function appears to be stable. May continue on the current measures. Qualifiers: Chronic kidney disease stage: stage 3 (moderate) Chronic kidney disease stage 3 subtype: stage 3a (GFR 45-59) Qualified Code(s): N18.31 - Chronic kidney disease, stage 3a (6) Chronic obstructive pulmonary disease: Qualifiers: COPD type: unspecified COPD Qualified Code(s): J44.9 - Chronic obstructive pulmonary disease, unspecified Plan Currently stable. May continue on the current treatment. Need to be seen in the clinic by the nurse practitioner in 1 week. Appointment with me in the office in 1 month Attestations Medical Necessity Statement*: Possible discharge home today. Coding Level of Care Code 43915 Diagnoses Non-ST elevation myocardial infarction (NSTEMI) I21.4 Atrial fibrillation with rapid ventricular response I48.91 Cellulitis and abscess of left leg L03.116; L02.416 Atherosclerosis of [place] coronary artery of [place] heart without angina pectoris I25.10 Coronary Disease-Associated Artery/Lesion type: [place] artery Stage 3a chronic kidney disease N18.31 Chronic kidney disease stage: stage 3 (moderate) Chronic kidney disease stage 3 subtype: stage 3a (GFR 45-59) Chronic obstructive pulmonary disease, unspecified COPD type J44.9 COPD type: unspecified COPD
--- NOTE | 2023-01-19 16:19 | PC.NURSE ---
discharge instructions given and explained.pt verb understanding of instructions.discharged via w/c to exit at 1555.spouse to drive pt home.
== END 2023-01-19 15:55 | disposition home or self-care (01) | DRG 602 ==
LOC: ER 06:59 → ER IP 09:36 → MEDSURG 16:01 → CSU 01-15 03:33
PROVIDERS: Internal Medicine; Student in an Organized Health Care Education/Training Program; Admitting Provider Internal Medicine; Emergency Provider Family Medicine; PCP Internal Medicine; Visit Provider Internal Medicine
DX: L03.116 Cellulitis of left lower limb (principal); I21.4 Non-ST elevation (NSTEMI) myocardial infarction; I13.0 Hypertensive heart and chronic kidney disease with heart failure and stage 1 through stage 4 chronic kidney disease, or unspecified chronic kidney disease; I50.32 Chronic diastolic (congestive) heart failure; M62.82 Rhabdomyolysis; I48.0 Paroxysmal atrial fibrillation; N18.31 Chronic kidney disease, stage 3a; E11.22 Type 2 diabetes mellitus with diabetic chronic kidney disease; I25.10 Atherosclerotic heart disease of native coronary artery without angina pectoris; J44.9 Chronic obstructive pulmonary disease, unspecified; E11.51 Type 2 diabetes mellitus with diabetic peripheral angiopathy without gangrene; W19.XXXA Unspecified fall, initial encounter; I87.8 Other specified disorders of veins; E78.5 Hyperlipidemia, unspecified; Z87.891 Personal history of nicotine dependence; Z95.5 Presence of coronary angioplasty implant and graft; Z85.3 Personal history of malignant neoplasm of breast; Z11.52 Encounter for screening for COVID-19; Z79.4 Long term (current) use of insulin; Z79.02 Long term (current) use of antithrombotics/antiplatelets; Z79.82 Long term (current) use of aspirin
CPT/HCPCS: 36415; 36416; 36600; 51702; 70450; 71045; 72125; 73502; 73562; 73590; 73630; 73700; 78452; 80048; 80051; 80053; 80202; 81001; 82009; 82330; 82550; 82805; 82962; 83605; 83690; 83735; 83880; 84484; 85025; 85378; 87040; 87077; 87150; 87186; 87205; 87631; 87635; 93005; 93010; 93017; 93971; 94640; 94660; 96365; 96367; 96372; 96375; 96376; 99285; A9500; J1650; J1815; J1940; J1956; J2270; J2405; J2543; J2785; J3370; J3490; J7030; J7050; J7626

== ENCOUNTER → 2023-01-21 13:26 | Outpatient (BNVA) | payer MEDICARE, MEDICAID, SELFPAY | PROVIDERS: PCP Internal Medicine; Visit Provider Thoracic Surgery (Cardiothoracic Vascular Surgery) | DX: E11.52 Type 2 diabetes mellitus with diabetic peripheral angiopathy with gangrene (principal); E11.622 Type 2 diabetes mellitus with other skin ulcer; L97.322 Non-pressure chronic ulcer of left ankle with fat layer exposed; L97.821 Non-pressure chronic ulcer of other part of left lower leg limited to breakdown of skin; L97.811 Non-pressure chronic ulcer of other part of right lower leg limited to breakdown of skin; Z09 Encounter for follow-up examination after completed treatment for conditions other than malignant neoplasm | CPT/HCPCS: 11042; 11045; 97597; A6197; A6251 ==

== ENCOUNTER → 2023-01-22 09:23 | Outpatient (BNVA) | payer MEDICARE, MEDICAID, SELFPAY | PROVIDERS: PCP Internal Medicine; Visit Provider Nurse Practitioner Family | DX: I48.20 Chronic atrial fibrillation, unspecified (principal); R00.1 Bradycardia, unspecified; I25.10 Atherosclerotic heart disease of native coronary artery without angina pectoris; I50.32 Chronic diastolic (congestive) heart failure; I45.19 Other right bundle-branch block | CPT/HCPCS: 93005; 99214 ==

== ENCOUNTER → 2023-01-27 12:59 | Outpatient (BNVA) | payer MEDICARE, MEDICAID, SELFPAY | PROVIDERS: PCP Internal Medicine; Visit Provider Nurse Practitioner Family | DX: E11.52 Type 2 diabetes mellitus with diabetic peripheral angiopathy with gangrene (principal); E11.622 Type 2 diabetes mellitus with other skin ulcer; L97.821 Non-pressure chronic ulcer of other part of left lower leg limited to breakdown of skin; L97.811 Non-pressure chronic ulcer of other part of right lower leg limited to breakdown of skin; Z09 Encounter for follow-up examination after completed treatment for conditions other than malignant neoplasm | CPT/HCPCS: 97597; 97598 ==

== ENCOUNTER → 2023-02-10 12:54 | Outpatient (BNVA) | payer MEDICARE, MEDICAID, SELFPAY | PROVIDERS: PCP Internal Medicine; Visit Provider Nurse Practitioner Family | DX: E11.52 Type 2 diabetes mellitus with diabetic peripheral angiopathy with gangrene (principal); E11.622 Type 2 diabetes mellitus with other skin ulcer; L97.821 Non-pressure chronic ulcer of other part of left lower leg limited to breakdown of skin; L97.811 Non-pressure chronic ulcer of other part of right lower leg limited to breakdown of skin | CPT/HCPCS: 97597; 97598 ==

== ENCOUNTER 2023-02-13 05:02 | Emergency (ER) | payer MEDICARE, MEDICAID, SELFPAY ==
[2023-02-13] VITALS (8 sets, daily range): BP systolic 201–212; BP diastolic 78–79; PULSE 69–77; RESP 16–32; O2SAT 87–100; BMI 50.8
--- NOTE | 2023-02-13 05:14 | XRR_ITS ---
PROCEDURE INFORMATION: Exam: XR Chest Exam date and time: 02/13/2023 5:21 AM Age: 67 years old Clinical indication: Shortness of breath; Additional info: SOB TECHNIQUE: Imaging protocol: Radiologic exam of the chest. Views: 1 view. COMPARISON: CR (CHEST, ) 01/14/2023 5:49 AM FINDINGS: Lungs: Mild interstitial prominence. Pleural spaces: Unremarkable. No pleural effusion. No pneumothorax. Heart/Mediastinum: See Vasculature finding. Vasculature: Mild cardiomegaly and uncoiling of the thoracic aorta. Bones/joints: Unremarkable. Soft tissues: Prior left chest wall surgery. XR/XR chest 1V portable [id number] IMPRESSION: No acute cardiopulmonary disease.
--- NOTE | 2023-02-13 05:14 | ECG_ITS ---
[facility] Test Date: 2023-02-13 Pat Name: Seema Del Rosario Department: Room: Gender: Female Bow Maker Custom: : 1955 Requested By: Yamilet Saldana Order Number: [id number] Jennie MD: Tom Argueta M.D. Measurements Intervals [place] Rate: 70 P: 76 NE: 232 QRS: -35 QRSD: 154 T: 56 QT: 442 QTc: 478 Interpretive Statements SINUS RHYTHM WITH FIRST DEGREE AV BLOCK INDETERMINATE AXIS RIGHT BUNDLE BRANCH BLOCK [120+ ms QRS DURATION, UPRIGHT V1, 40+ ms S IN I/aVL/V4/V5/V6] POSSIBLE SEPTAL MYOCARDIAL INFARCTION , OF INDETERMINATE AGE [30 ms Q WAVE IN V1/V2] Compared to ECG 01/22/2023 09:27:25 First degree AV block now present Myocardial infarct finding now present Sinus bradycardia no longer present Electronically Signed On 02-13-2023 14:56:08 BARREL LOADER by Tom Argueta M.D. [email or web address]
--- NOTE | 2023-02-13 05:17 | W.ED.SOB ---
Documented by User: Yamilet Cheek MD 02/13/23 05:45 HPI - SOB/Dyspnea General: Chief Complaint: Shortness of Breath/Dyspnea Stated Complaint: respiratory distress Time Seen by Provider: 02/13/23 05:12 History of Present Illness: HPI Narrative: 67-year-old female with complex medical history including CHF, chronic renal disease, hypertension, diabetes, anemia, coronary disease with stent and CABG atrial fibrillation and COPD. Patient presents emergency room via EMS due to shortness of breath and chest pain that started few hours ago. Patient described the pain as pressure-like sensation in the chest it was 8 out of 10 before calling 911. Upon presenting to the emergency room, patient reveals that the pain is now 2 out of 10 after she was given aspirin, steroid and oxygen. Patient denies any home oxygen use but currently requiring about 2 L of oxygen. Associated symptoms: Reports chest pain; Deny abdominal pain, chest congestion, extremity pain, fever(s), hemoptysis, nausea, palpitations or vomiting Review of Systems General: Reports: 10 or more systems reviewed and unremarkable except in HPI and below Const: Denies: fever(s), chills or body aches Eyes: Denies: change in vision, blurry vision, blind spots, photophobia or eye discomfort Card: Reports: chest pain, edema and swelling of feet/ankles; Denies: palpitations or irregular heart rhythm Resp: Reports: dyspnea; Denies: productive cough, non-productive cough, wheezing, stridor, pain on inspiration, change in phlegm color, hemoptysis or chest congestion GI: Denies: abdominal pain, nausea, vomiting or hematemesis : Denies: flank pain, difficulty voiding, dysuria, urinary frequency, urinary urgency or urinary hesitancy Musc: Denies: neck pain, back pain or extremity pain PFSH ED PFSH: Medical History CKD (chronic kidney disease) Atherosclerosis of coronary artery of [place] heart without angina pectoris Peripheral arterial disease Lower extremity edema Leg pain Chronic venous insufficiency Chronic obstructive pulmonary disease Atrial fibrillation, chronic Diastolic heart failure Anemia Screen for colon cancer History of breast cancer Diabetes Hypertension Surgical History History of esophagogastroduodenoscopy (EGD) (~08/2019) dr[facility]acarias [facility] [place] History of colonoscopy with polypectomy (~08/2019) dr[facility] zacarias [facility] [place]. History of carpal tunnel release of both wrists History of coronary angioplasty with insertion of stent History of coronary artery balloon dilation History of lumpectomy Family History Father CAD (coronary artery disease), Onset Age: 50 Cancer Diabetes Hyperlipidemia Hypertension Lung disease Denies family history of Clotting disorder Dementia Psychiatric illness Chronic kidney disease (CKD) Suicide Anesthesia complication Bleeding disorder Stroke Social History Smoking and tobacco/nicotine status: former use of tobacco/nicotine Quit status (tobacco/nicotine): has quit using Year quit tobacco: 2016 - 2PPD x 40 Years Alcohol intake: never Substance/Drug Use: never Lives independently: Yes Household members: spouse Marital status: Current occupational status: retired Do you think of yourself as: Straight/Heterosexual Current gender identity: Female Physical Exam Const: COMMON NORMALS: patient oriented x3 GENERAL APPEARANCE: comfortable; not in distress, not anxious, not combative, not disheveled and not lethargic NUTRITIONAL APPEARANCE: obese ORIENTATION/CONSCIOUSNESS: not lethargic Neck/C-Spine: COMMON NORMALS: full ROM, no lymphadenopathy, supple, no meningeal signs, no JVD, Thyroid normal and No carotid bruits THYROID: Thyroid normal Chest: COMMONS NORMALS: normal inspection of the chest, normal palpation of entire chest wall, normal inspection of the breasts and normal palpation of the breasts Breast/axilla inspection: Yes normal inspection of the breasts BREAST/AXILLA PALPATION: Yes normal palpation of the breasts Resp: AUSCULTATION: rales, wheezes, diminished lung sounds, no bronchial breath sounds, no bronchovesicular breath sounds, no tactile fremitus, No rub present and no vesicular sounds Cardio: COMMON NORMALS: no JVD Extremity: NARRATIVE EXTREMITY EXAM: Lower extremities with pitting edema with changes consistent with chronic stasis dermatitis RIGHT LOWER EXTREMITY: Yes lower leg Right lower leg: No neurovascular exam Neuro: COMMON NORMALS: patient oriented x3 SENSORIUM/ORIENTATION: No lethargic MENINGEAL SIGNS: Yes no meningeal signs Course Vital Signs: Vital signs: Vital Signs Pulse Rate 71 02/13/23 12:54 Respiratory Rate 20 H 02/13/23 12:54 Blood Pressure 201/79 02/13/23 07:00 Pulse Oximetry 98 02/13/23 12:54 Oxygen Delivery Me thod Nasal Cannula 02/13/23 11:58 Oxygen Flow Rate 2 02/13/23 11:58 MDM - SOB/Dyspnea Differential Diagnosis Likely acute exacerbation of chronic obstructive airways disease, congestive heart failure, community acquired pneumonia, asthma with exacerbation and pulmonary embolism Lab Data 02/13/23 05:12 02/13/23 05:12 Labs/Radiology: Radiology Impressions Chest X-Ray 02/13/23 05:14 IMPRESSION: No acute cardiopulmonary disease. Laboratory Results WBC 9.67 10^3/uL (3.29-11.43) 02/13/23 05:12 RBC 3.91 10^6/uL (3.85-5.65) 02/13/23 05:12 Hgb 10.60 g/dL (11.27-16.99) L 02/13/23 05:12 Hct 34.4 % (36-47) L 02/13/23 05:12 MCV 88.0 fl (85-98) 02/13/23 05:12 MCH 27.1 pg (27-33) 02/13/23 05:12 MCHC 30.8 g/dL (30-55) 02/13/23 05:12 RDW 14.7 % (12.1-15.1) 02/13/23 05:12 Plt Count 283 10^3/cmm (157-399) 02/13/23 05:12 MPV 9.7 fL (7.4-10.4) 02/13/23 05:12 Neut % (Auto) 88.5 % 02/13/23 05:12 Lymph % (Auto) 5.0 % 02/13/23 05:12 Ramsey % (Auto) 4.2 % 02/13/23 05:12 Eos % (Auto) 1.6 % 02/13/23 05:12 Baso % (Auto) 0.2 % 02/13/23 05:12 Neut # (Auto) 8.56 10^3/uL (1.8-7.7) H 02/13/23 05:12 Lymph # (Auto) 0.5 10^3/uL (0.8-4.8) L 02/13/23 05:12 Ramsey # (Auto) 0.4 10^3/uL (0.2-0.9) 02/13/23 05:12 Eos # (Auto) 0.2 10^3/uL (0.0-0.8) 02/13/23 05:12 Baso # (Auto) 0.0 10^3/uL (0.0-0.1) 02/13/23 05:12 Nucleated RBC % (auto) 0 % 02/13/23 05:12 Nucleated RBCs # 0.0 /100WBC 02/13/23 05:12 Specimen Type Arterial 02/13/23 05:08 Sample Site Radial, right 02/13/23 05:08 ABG pH 7.42 (7.35-7.45) 02/13/23 05:08 ABG pCO2 37.4 mmHg (35-45) 02/13/23 05:08 ABG pO2 56.7 mmHg (80.0-100.0) L 02/13/23 05:08 ABG HCO3 24.2 mmol/L (22-26) 02/13/23 05:08 ABG Base Excess -0.2 mmol/L (-2.0-2.0) 02/13/23 05:08 Tavares Test Pos 02/13/23 05:08 Hematocrit 33.9 % (37-47) L 02/13/23 05:08 Hgb O2 Saturation 87.4 % (95-100) L 02/13/23 05:08 Carboxyhemoglobin 0.9 %THgb (0.4-20.1) 02/13/23 05:08 Methemoglobin 0.5 % (0.4-1.5) 02/13/23 05:08 Total Hemoglobin 11.1 g/dL (12-16) L 02/13/23 05:08 O2 Delivery Device Room air 02/13/23 05:08 Kennel Technician ID [email or web address] 02/13/23 05:08 Sodium 138 mmol/L (136-145) 02/13/23 05:12 Potassium 4.9 mmol/L (3.5-5.1) 02/13/23 05:12 Chloride 104 mmol/L (98-107) 02/13/23 05:12 Carbon Dioxide 24 mmol/L (22-29) 02/13/23 05:12 Anion Gap 14.9 (5-19) 02/13/23 05:12 BUN 25 mg/dL (8-23) H 02/13/23 05:12 Creatinine 1.1 mg/dL (0.5-0.9) H 02/13/23 05:12 GFR Calculation 49.5 mL/min (90-130) L 02/13/23 05:12 Glucose 167 mg/dL (65-115) H 02/13/23 05:12 Calculated Osmolality 294 mOsm/kg (285-295) 02/13/23 05:12 Calcium 9.1 mg/dL (8.5-10.5) 02/13/23 05:12 Total Bilirubin 0.4 mg/dL (0.15-1.2) 02/13/23 05:12 AST 20 U/L (0-32) 02/13/23 05:12 ALT 20 U/L (0-33) 02/13/23 05:12 Alkaline Phosphatase 108 U/L (35-105) H 02/13/23 05:12 Troponin T Baseline 27 ng/L (0-10) H 02/13/23 05:12 Troponin T 120 Minute 22.43 ng/L (0-10) H 02/13/23 07:25 Delta Troponin T -4.57 ABS# (0-10) L 02/13/23 07:25 NT-Pro-B Natriuret Pep 5803 pg/mL (0-125) H 02/13/23 05:12 Total Protein 6.8 g/dL (6.6-8.7) 02/13/23 05:12 Albumin 3.5 g/dL (3.5-5.2) 02/13/23 05:12 Globulin 3.3 g/dL (1.3-4.6) 02/13/23 05:12 Influenza Type A Ag negative (Negative) 02/13/23 06:13 Influenza Type B Ag negative (Negative) 02/13/23 06:13 SARS-CoV-2 Ag (Rapid) negative (Negative) 02/13/23 06:13 All radiology interpretation(s) finalized by discharge EKG Data EKG 1: Interpretation: Sinus rhythm with first-degree block rate of 70. Right bundle garrick noticed. IA interval 232 QRS duration 154 QT 442 Discharge Plan Discharge Patient Disposition: Home Clinical Impression: Obstructive sleep apnea, Venous stasis ulcer of left lower extremity Diastolic heart failure Qualifiers: Heart failure chronicity: chronic Qualified Code(s): I50.32 - Chronic diastolic (congestive) heart failure Congestive heart failure Qualifiers: Heart failure type: unspecified Heart failure chronicity: acute on chronic Qualified Code(s): I50.9 - Heart failure, unspecified Condition: Stable Prescriptions: New bumetanide 2 mg tablet 2 mg PO DAILY Qty: 5 0RF No Action Tresiba FlexTouch U-100 100 unit/mL (3 mL) insulin pen 42 unit SUBCUT BID insulin lispro [Humalog KwikPen Insulin] 100 unit/mL insulin pen 30 unit SUBCUT TID pentoxifylline 400 mg tablet extended release 400 mg PO TID Qty: 90 4RF Rx Instructions: must administer with a meal/food diltiazem HCl 120 mg capsule,extended release 24hr 120 mg PO DAILY Qty: 90 3RF Eliquis 5 mg tablet 5 mg PO BID Qty: 180 3RF metoprolol tartrate 50 mg tablet 100 mg PO BID Qty: 180 3RF clopidogrel 75 mg tablet 75 mg PO DAILY Qty: 90 3RF (DME) Lead Trainer brace See Rx Instructions .Route .MEDSUPPLY Qty: 1 0RF Rx Instructions: As directed Stiolto Respimat 2.5-2.5 mcg/actuation mist 2 puff inhalation DAILY@07 Qty: 4 5RF clonidine HCl 0.1 mg tablet 0.1 mg PO Q8H simvastatin 10 mg tablet 10 mg PO DAILY@2200 allopurinol 100 mg tablet 100 mg PO DAILY@0700 isosorbide mononitrate 60 mg tablet extended release 24 hr 90 mg PO DAILY@0700 gabapentin 300 mg capsule 300 mg PO TID@07,, polyethylene glycol 3350 17 gram/dose powder 17 g PO DAILY PRN (Reason: Constipation) aspirin 325 mg Tablet 325 mg PO DAILY@0700 Hold Instructions: Resume on 09/09/19. pantoprazole 40 mg tablet,delayed release (DR/EC) 40 mg PO QAM duloxetine 30 mg capsule,delayed release(DR/EC) 30 mg PO QAM bumetanide 1 mg tablet 1 mg PO QAM ergocalciferol (vitamin D2) 1,250 mcg (50,000 unit) capsule 50,000 unit PO Q7D Rx Instructions: on Farxiga 10 mg tablet 10 mg PO QAM tramadol 50 mg tablet 50 mg PO BID PRN (Reason: Pain) Discharge Orders: Discharge ED (Routine); Ordered 02/13/23 Ordered By: Pawan Cruz Other Ambulatory Orders: DME: Oxygen (Order) Location: None Selected Ordered By: Pawan Cruz Referrals: Jeanine Solares MD [Primary Care Provider] - Patient Instructions: Opioid Safety, Pain Management Activity Restrictions/Additional Instructions: Please use oxygen as directed. Please increase your Bumex to 2 mg in the morning for the next 5 days. Please follow-up with your family practice physician within the next 7 to 10 days for further evaluation and treatment. Coding Level of Care Code ED Music Typographer for Chg Fwd Documented by User: Pawan Cruz DO 02/14/23 09:56 HPI - SOB/Dyspnea General: Chief Complaint: Shortness of Breath/Dyspnea Stated Complaint: respiratory distress Time Seen by Provider: 02/13/23 05:12 PFSH ED PFSH: Medical History CKD (chronic kidney disease) Atherosclerosis of coronary artery of [place] heart without angina pectoris Peripheral arterial disease Lower extremity edema Leg pain Chronic venous insufficiency Chronic obstructive pulmonary disease Atrial fibrillation, chronic Diastolic heart failure Anemia Screen for colon cancer History of breast cancer Diabetes Hypertension Surgical History History of esophagogastroduodenoscopy (EGD) (~08/2019) [facility]. History of colonoscopy with polypectomy (~08/2019) [facility]. History of carpal tunnel release of both wrists History of coronary angioplasty with insertion of stent History of coronary artery balloon dilation History of lumpectomy Family History Father CAD (coronary artery disease), Onset Age: 50 Cancer Diabetes Hyperlipidemia Hypertension Lung disease Denies family history of Clotting disorder Dementia Psychiatric illness Chronic kidney disease (CKD) Suicide Anesthesia complication Bleeding disorder Stroke Social History Smoking and tobacco/nicotine status: former use of tobacco/nicotine Quit status (tobacco/nicotine): has quit using Year quit tobacco: 2016 - 2PPD x 40 Years Alcohol intake: never Substance/Drug Use: never Lives independently: Yes Household members: spouse Marital status: Current occupational status: retired Do you think of yourself as: Straight/Heterosexual Current gender identity: Female Course Vital Signs: Vital signs: Vital Signs Pulse Rate 71 02/13/23 12:54 Respiratory Rate 20 H 02/13/23 12:54 Blood Pressure 201/79 02/13/23 07:00 Pulse Oximetry 98 02/13/23 12:54 Oxygen Delivery Me thod Nasal Cannula 02/13/23 11:58 Oxygen Flow Rate 2 02/13/23 11:58 MDM - SOB/Dyspnea Medical Decision Making Patient presents to the ER with chest pain shortness of breath and not feeling well. Patient was worked up in a standard fashion with labs which showed a BUN/creatinine of 25 and 1.1 and hemoglobin hematocrit of 10.6 and 34.4, BUN of 5803, troponin of 27, 2-hour troponin of 23, with a delta of approximately 4, patient was given 40 mg Lasix IV and diuresed very well and was feeling much better. Patient had a home oxygen test which she failed so she does require home oxygen we will get for her. Patient be discharged home with additional diuretics and on home oxygen. Lab Data 02/13/23 05:12 02/13/23 05:12 Labs/Radiology: Radiology Impressions Chest X-Ray 02/13/23 05:14 IMPRESSION: No acute cardiopulmonary disease. Laboratory Results WBC 9.67 10^3/uL (3.29-11.43) 02/13/23 05:12 RBC 3.91 10^6/uL (3.85-5.65) 02/13/23 05:12 Hgb 10.60 g/dL (11.27-16.99) L 02/13/23 05:12 Hct 34.4 % (36-47) L 02/13/23 05:12 MCV 88.0 fl (85-98) 02/13/23 05:12 MCH 27.1 pg (27-33) 02/13/23 05:12 MCHC 30.8 g/dL (30-55) 02/13/23 05:12 RDW 14.7 % (12.1-15.1) 02/13/23 05:12 Plt Count 283 10^3/cmm (157-399) 02/13/23 05:12 MPV 9.7 fL (7.4-10.4) 02/13/23 05:12 Neut % (Auto) 88.5 % 02/13/23 05:12 Lymph % (Auto) 5.0 % 02/13/23 05:12 Ramsey % (Auto) 4.2 % 02/13/23 05:12 Eos % (Auto) 1.6 % 02/13/23 05:12 Baso % (Auto) 0.2 % 02/13/23 05:12 Neut # (Auto) 8.56 10^3/uL (1.8-7.7) H 02/13/23 05:12 Lymph # (Auto) 0.5 10^3/uL (0.8-4.8) L 02/13/23 05:12 Ramsey # (Auto) 0.4 10^3/uL (0.2-0.9) 02/13/23 05:12 Eos # (Auto) 0.2 10^3/uL (0.0-0.8) 02/13/23 05:12 Baso # (Auto) 0.0 10^3/uL (0.0-0.1) 02/13/23 05:12 Nucleated RBC % (auto) 0 % 02/13/23 05:12 Nucleated RBCs # 0.0 /100WBC 02/13/23 05:12 Specimen Type Arterial 02/13/23 05:08 Sample Site Radial, right 02/13/23 05:08 ABG pH 7.42 (7.35-7.45) 02/13/23 05:08 ABG pCO2 37.4 mmHg (35-45) 02/13/23 05:08 ABG pO2 56.7 mmHg (80.0-100.0) L 02/13/23 05:08 ABG HCO3 24.2 mmol/L (22-26) 02/13/23 05:08 ABG Base Excess -0.2 mmol/L (-2.0-2.0) 02/13/23 05:08 Tavares Test Pos 02/13/23 05:08 Hematocrit 33.9 % (37-47) L 02/13/23 05:08 Hgb O2 Saturation 87.4 % (95-100) L 02/13/23 05:08 Carboxyhemoglobin 0.9 %THgb (0.4-20.1) 02/13/23 05:08 Methemoglobin 0.5 % (0.4-1.5) 02/13/23 05:08 Total Hemoglobin 11.1 g/dL (12-16) L 02/13/23 05:08 O2 Delivery Device Room air 02/13/23 05:08 Kennel Technician ID [email or web address] 02/13/23 05:08 Sodium 138 mmol/L (136-145) 02/13/23 05:12 Potassium 4.9 mmol/L (3.5-5.1) 02/13/23 05:12 Chloride 104 mmol/L (98-107) 02/13/23 05:12 Carbon Dioxide 24 mmol/L (22-29) 02/13/23 05:12 Anion Gap 14.9 (5-19) 02/13/23 05:12 BUN 25 mg/dL (8-23) H 02/13/23 05:12 Creatinine 1.1 mg/dL (0.5-0.9) H 02/13/23 05:12 GFR Calculation 49.5 mL/min (90-130) L 02/13/23 05:12 Glucose 167 mg/dL (65-115) H 02/13/23 05:12 Calculated Osmolality 294 mOsm/kg (285-295) 02/13/23 05:12 Calcium 9.1 mg/dL (8.5-10.5) 02/13/23 05:12 Total Bilirubin 0.4 mg/dL (0.15-1.2) 02/13/23 05:12 AST 20 U/L (0-32) 02/13/23 05:12 ALT 20 U/L (0-33) 02/13/23 05:12 Alkaline Phosphatase 108 U/L (35-105) H 02/13/23 05:12 Troponin T Baseline 27 ng/L (0-10) H 02/13/23 05:12 Troponin T 120 Minute 22.43 ng/L (0-10) H 02/13/23 07:25 Delta Troponin T -4.57 ABS# (0-10) L 02/13/23 07:25 NT-Pro-B Natriuret Pep 5803 pg/mL (0-125) H 02/13/23 05:12 Total Protein 6.8 g/dL (6.6-8.7) 02/13/23 05:12 Albumin 3.5 g/dL (3.5-5.2) 02/13/23 05:12 Globulin 3.3 g/dL (1.3-4.6) 02/13/23 05:12 Influenza Type A Ag negative (Negative) 02/13/23 06:13 Influenza Type B Ag negative (Negative) 02/13/23 06:13 SARS-CoV-2 Ag (Rapid) negative (Negative) 02/13/23 06:13 Discharge Plan Discharge Patient Disposition: Home Clinical Impression: Obstructive sleep apnea, Venous stasis ulcer of left lower extremity Diastolic heart failure Qualifiers: Heart failure chronicity: chronic Qualified Code(s): I50.32 - Chronic diastolic (congestive) heart failure Congestive heart failure Qualifiers: Heart failure type: unspecified Heart failure chronicity: acute on chronic Qualified Code(s): I50.9 - Heart failure, unspecified Condition: Stable Prescriptions: New bumetanide 2 mg tablet 2 mg PO DAILY Qty: 5 0RF No Action Tresiba FlexTouch U-100 100 unit/mL (3 mL) insulin pen 42 unit SUBCUT BID insulin lispro [Humalog KwikPen Insulin] 100 unit/mL insulin pen 30 unit SUBCUT TID pentoxifylline 400 mg tablet extended release 400 mg PO TID Qty: 90 4RF Rx Instructions: must administer with a meal/food diltiazem HCl 120 mg capsule,extended release 24hr 120 mg PO DAILY Qty: 90 3RF Eliquis 5 mg tablet 5 mg PO BID Qty: 180 3RF metoprolol tartrate 50 mg tablet 100 mg PO BID Qty: 180 3RF clopidogrel 75 mg tablet 75 mg PO DAILY Qty: 90 3RF (DME) Lead Trainer brace See Rx Instructions .Route .MEDSUPPLY Qty: 1 0RF Rx Instructions: As directed Stiolto Respimat 2.5-2.5 mcg/actuation mist 2 puff inhalation DAILY@07 Qty: 4 5RF clonidine HCl 0.1 mg tablet 0.1 mg PO Q8H simvastatin 10 mg tablet 10 mg PO DAILY@2200 allopurinol 100 mg tablet 100 mg PO DAILY@0700 isosorbide mononitrate 60 mg tablet extended release 24 hr 90 mg PO DAILY@0700 gabapentin 300 mg capsule 300 mg PO TID@07,, polyethylene glycol 3350 17 gram/dose powder 17 g PO DAILY PRN (Reason: Constipation) aspirin 325 mg Tablet 325 mg PO DAILY@0700 Hold Instructions: Resume on 09/09/19. pantoprazole 40 mg tablet,delayed release (DR/EC) 40 mg PO QAM duloxetine 30 mg capsule,delayed release(DR/EC) 30 mg PO QAM bumetanide 1 mg tablet 1 mg PO QAM ergocalciferol (vitamin D2) 1,250 mcg (50,000 unit) capsule 50,000 unit PO Q7D Rx Instructions: on Farxiga 10 mg tablet 10 mg PO QAM tramadol 50 mg tablet 50 mg PO BID PRN (Reason: Pain) Discharge Orders: Discharge ED (Routine); Ordered 02/13/23 Ordered By: Pawan Cruz Other Ambulatory Orders: DME: Oxygen (Order) Location: None Selected Ordered By: Pawan Cruz Referrals: Jeanine Solares MD [Primary Care Provider] - Patient Instructions: Opioid Safety, Pain Management Activity Restrictions/Additional Instructions: Please use oxygen as directed. Please increase your Bumex to 2 mg in the morning for the next 5 days. Please follow-up with your family practice physician within the next 7 to 10 days for further evaluation and treatment. Coding Level of Care Code ED Music Typographer for Tang Ambrosio
[2023-02-13 05:19] LABS: ABG PCO2 37.4 mmHg (35-45); ABG PH Result 7.42 (7.35-7.45); Arterial Blood Gas Hematocrit 33.9 % (37-47); Base Excess ABG -0.2 mmol/L (-2.0-2.0); Blood Gas Allen Test Pos; Blood Gas Sample Site Radial, right; Blood Gas Sample Type Arterial; Carboxyhemoglobin 0.9 %THgb (0.4-20.1); HCO3 ABG 24.2 mmol/L (22-26); HGB O2 Sat 87.4 % (95-100); Methemoglobin 0.5 % (0.4-1.5); Oxygen Device ROOM AIR; PO2 ABG 56.7 mmHg (80.0-100.0); Total Hemoglobin 11.1 g/dL (12-16)
[2023-02-13 05:20] LABS: Basophils % 0.2 %; Eosinophils # 0.2 10^3/uL (0.0-0.8); Eosinophils % 1.6 %; Hematocrit 34.4 % (36-47); Lymphocytes # 0.5 10^3/uL (0.8-4.8); Mean Corpuscular HGB Conc 30.8 g/dL (30-55); Mean Corpuscular Hemoglobin 27.1 pg (27-33); Mean Platelet Volume 9.7 fL (7.4-10.4); Monocytes # 0.4 10^3/uL (0.2-0.9); Monocytes % 4.2 %; Neutrophils # 8.56 10^3/uL (1.8-7.7); Neutrophils % 88.5 %; Nucleated Red Blood Cells % 0 %; Platelet Count 283 10^3/cmm (157-399); Red Blood Count 3.91 10^6/uL (3.85-5.65); Red Cell Distribution Width 14.7 % (12.1-15.1); White Blood Count 9.67 10^3/uL (3.29-11.43)
[2023-02-13] MEDS: nitroglycerin 1 gm/inch oint Pkt 0.5 INCH TOPICAL (05:20)
[2023-02-13] MEDS: ipratropium-albuterol 3 mL Neb INHALATION (05:25)
[2023-02-13 05:39] LABS: Troponin(5th) Baseline 27 ng/L (0-10)
[2023-02-13 05:46] LABS: Alanine Aminotransferase 20 U/L (0-33); Albumin Level 3.5 g/dL (3.5-5.2); Alkaline Phosphatase 108 U/L (35-105); Anion Gap 14.9 (5-19); Aspartate Amino Transferase 20 U/L (0-32); Blood Urea Nitrogen 25 mg/dL (8-23); Calcium 9.1 mg/dL (8.5-10.5); Carbon Dioxide 24 mmol/L (22-29); Chloride 104 mmol/L (98-107); Globulin 3.3 g/dL (1.3-4.6); Glomerular Filtration Rate 49.5 mL/min (90-130); Glucose 167 mg/dL (65-115); NT Pro B Type Natriuretic Pept 5803 pg/mL (0-125); Osmolality Calculated 294 mOsm/kg (285-295); Potassium 4.9 mmol/L (3.5-5.1); Sodium 138 mmol/L (136-145); Total Bilirubin 0.4 mg/dL (0.15-1.2); Total Protein 6.8 g/dL (6.6-8.7)
[2023-02-13] MEDS: FUROsemide 10 mg/mL SDV 4mL 40 MG IVP (06:16)
[2023-02-13 06:41] LABS: Influenza A by IFA negative (Negative); Influenza B by IFA negative (Negative); SARS Covid-2 Antigen negative (Negative)
[2023-02-13 07:50] LABS: Troponin 5 2HR 22.43 ng/L (0-10); Troponin 5 2HR Delta -4.57 ABS# (0-10)
--- NOTE | 2023-02-13 11:08 | PC.SOCIAL ---
Cyber access completed ER called & said they are trying to get Pt some O2. They said HOME said pt needs a precert completed b/c pt has medicaid. Shop Assistant completed Cyber access & faxed to HOME. Called HOME & notified them & updated the ER that it is completed. Pre-Cert number assigned: [id number]. No other needs voiced for Cm.
--- NOTE | 2023-02-13 11:35 | PC.NURSE ---
Spoke with daughter Lila on phone, per request of patient, in order to get ride home. Daughter unable to transfer patient back home, but stated that patient's would be en route to transfer patient home. Patient informed of conversation, had no questions or concerns.
== END 2023-02-13 12:55 | disposition home or self-care (01) ==
PROVIDERS: Emergency Provider Family Medicine; PCP Internal Medicine
DX: G47.33 Obstructive sleep apnea (adult) (pediatric) (principal); I83.029 Varicose veins of left lower extremity with ulcer of unspecified site; L97.929 Non-pressure chronic ulcer of unspecified part of left lower leg with unspecified severity; E11.22 Type 2 diabetes mellitus with diabetic chronic kidney disease; I13.0 Hypertensive heart and chronic kidney disease with heart failure and stage 1 through stage 4 chronic kidney disease, or unspecified chronic kidney disease; N18.9 Chronic kidney disease, unspecified; I50.32 Chronic diastolic (congestive) heart failure; Z79.02 Long term (current) use of antithrombotics/antiplatelets; Z79.82 Long term (current) use of aspirin; Z79.4 Long term (current) use of insulin; Z79.01 Long term (current) use of anticoagulants; Z11.52 Encounter for screening for COVID-19; Z87.891 Personal history of nicotine dependence; I25.10 Atherosclerotic heart disease of native coronary artery without angina pectoris; Z85.3 Personal history of malignant neoplasm of breast; Z95.5 Presence of coronary angioplasty implant and graft
CPT/HCPCS: 36415; 36600; 71045; 80053; 82805; 83880; 84484; 85025; 87426; 87804; 93005; 94640; 96374; 99285; J1940

== ENCOUNTER → 2023-02-19 12:55 | Outpatient (BNVA) | payer MEDICARE, MEDICAID, SELFPAY | PROVIDERS: PCP Internal Medicine; Visit Provider Nurse Practitioner Family | DX: E11.52 Type 2 diabetes mellitus with diabetic peripheral angiopathy with gangrene (principal); E11.622 Type 2 diabetes mellitus with other skin ulcer; L97.821 Non-pressure chronic ulcer of other part of left lower leg limited to breakdown of skin; L97.811 Non-pressure chronic ulcer of other part of right lower leg limited to breakdown of skin | CPT/HCPCS: 97597; 97598; A6210 ==

== ENCOUNTER → 2023-02-25 15:06 | Outpatient (BNVA) | payer MEDICARE, MEDICAID, SELFPAY | PROVIDERS: PCP Internal Medicine; Visit Provider Thoracic Surgery (Cardiothoracic Vascular Surgery) | DX: E11.52 Type 2 diabetes mellitus with diabetic peripheral angiopathy with gangrene (principal); E11.622 Type 2 diabetes mellitus with other skin ulcer; L97.821 Non-pressure chronic ulcer of other part of left lower leg limited to breakdown of skin; L97.811 Non-pressure chronic ulcer of other part of right lower leg limited to breakdown of skin | CPT/HCPCS: 11042; 11045; 97597; 97598 ==

== ENCOUNTER → 2023-03-13 13:50 | Outpatient (BNVA) | payer MEDICARE, MEDICAID, SELFPAY | PROVIDERS: PCP Internal Medicine; Visit Provider Thoracic Surgery (Cardiothoracic Vascular Surgery) | DX: E11.52 Type 2 diabetes mellitus with diabetic peripheral angiopathy with gangrene (principal); E11.622 Type 2 diabetes mellitus with other skin ulcer; L97.822 Non-pressure chronic ulcer of other part of left lower leg with fat layer exposed; L97.811 Non-pressure chronic ulcer of other part of right lower leg limited to breakdown of skin | CPT/HCPCS: 11042; 11045; 87070; 87077; 87176; 87186; 87205; 97597; 97598 ==

== ENCOUNTER → 2023-03-18 13:18 | Outpatient (BNVA) | payer MEDICARE, MEDICAID, SELFPAY | PROVIDERS: PCP Internal Medicine; Visit Provider Thoracic Surgery (Cardiothoracic Vascular Surgery) | DX: E11.52 Type 2 diabetes mellitus with diabetic peripheral angiopathy with gangrene (principal); E11.622 Type 2 diabetes mellitus with other skin ulcer; L97.821 Non-pressure chronic ulcer of other part of left lower leg limited to breakdown of skin; L97.811 Non-pressure chronic ulcer of other part of right lower leg limited to breakdown of skin | CPT/HCPCS: 11042; 11045; 97597; 97598 ==

== ENCOUNTER → 2023-03-24 12:55 | Outpatient (BNVA) | payer MEDICARE, MEDICAID, SELFPAY | PROVIDERS: PCP Internal Medicine; Referring Provider Internal Medicine; Visit Provider Dermatology | DX: L57.8 Other skin changes due to chronic exposure to nonionizing radiation (principal); L81.4 Other melanin hyperpigmentation; L57.0 Actinic keratosis | CPT/HCPCS: 17000; 99203 ==

== ENCOUNTER → 2023-03-25 15:12 | Outpatient (BNVA) | payer MEDICARE, MEDICAID, SELFPAY | PROVIDERS: PCP Internal Medicine; Visit Provider Thoracic Surgery (Cardiothoracic Vascular Surgery) | DX: E11.52 Type 2 diabetes mellitus with diabetic peripheral angiopathy with gangrene (principal); E11.622 Type 2 diabetes mellitus with other skin ulcer; L97.821 Non-pressure chronic ulcer of other part of left lower leg limited to breakdown of skin; L97.811 Non-pressure chronic ulcer of other part of right lower leg limited to breakdown of skin | CPT/HCPCS: 97597; 97598 ==

== ENCOUNTER → 2023-04-02 09:42 | Outpatient (BNVA) | payer MEDICARE, MEDICAID, SELFPAY | PROVIDERS: PCP Internal Medicine; Visit Provider Student in an Organized Health Care Education/Training Program | DX: M17.0 Bilateral primary osteoarthritis of knee (principal); E11.52 Type 2 diabetes mellitus with diabetic peripheral angiopathy with gangrene; E11.622 Type 2 diabetes mellitus with other skin ulcer; L97.821 Non-pressure chronic ulcer of other part of left lower leg limited to breakdown of skin; L97.811 Non-pressure chronic ulcer of other part of right lower leg limited to breakdown of skin | CPT/HCPCS: 20610; 73560; 73565; 97597; 97598; 99213; J3301 ==

== ENCOUNTER → 2023-04-09 11:08 | Outpatient (BNVA) | payer MEDICARE, MEDICAID, SELFPAY | PROVIDERS: PCP Internal Medicine; Visit Provider Thoracic Surgery (Cardiothoracic Vascular Surgery) | DX: E11.52 Type 2 diabetes mellitus with diabetic peripheral angiopathy with gangrene (principal); E11.622 Type 2 diabetes mellitus with other skin ulcer; L97.821 Non-pressure chronic ulcer of other part of left lower leg limited to breakdown of skin; L97.811 Non-pressure chronic ulcer of other part of right lower leg limited to breakdown of skin | CPT/HCPCS: 97597; 97598 ==

== ENCOUNTER → 2023-04-16 10:31 | Outpatient (BNVA) | payer MEDICARE, MEDICAID, SELFPAY | PROVIDERS: PCP Internal Medicine; Visit Provider Thoracic Surgery (Cardiothoracic Vascular Surgery) | DX: E11.52 Type 2 diabetes mellitus with diabetic peripheral angiopathy with gangrene (principal); E11.622 Type 2 diabetes mellitus with other skin ulcer; L97.821 Non-pressure chronic ulcer of other part of left lower leg limited to breakdown of skin; L97.811 Non-pressure chronic ulcer of other part of right lower leg limited to breakdown of skin | CPT/HCPCS: 97597; 97598 ==

== ENCOUNTER → 2023-04-30 09:09 | Outpatient (BNVA) | payer MEDICARE, MEDICAID, SELFPAY | PROVIDERS: PCP Internal Medicine; Visit Provider Thoracic Surgery (Cardiothoracic Vascular Surgery) | DX: E11.52 Type 2 diabetes mellitus with diabetic peripheral angiopathy with gangrene (principal); E11.621 Type 2 diabetes mellitus with foot ulcer; L97.821 Non-pressure chronic ulcer of other part of left lower leg limited to breakdown of skin; L97.811 Non-pressure chronic ulcer of other part of right lower leg limited to breakdown of skin | CPT/HCPCS: 97597 ==

== ENCOUNTER → 2023-05-07 09:47 | Outpatient (BNVA) | payer MEDICARE, MEDICAID, SELFPAY | PROVIDERS: PCP Internal Medicine; Visit Provider Thoracic Surgery (Cardiothoracic Vascular Surgery) | DX: I87.2 Venous insufficiency (chronic) (peripheral) (principal); E11.52 Type 2 diabetes mellitus with diabetic peripheral angiopathy with gangrene; E11.622 Type 2 diabetes mellitus with other skin ulcer; L97.821 Non-pressure chronic ulcer of other part of left lower leg limited to breakdown of skin; L97.811 Non-pressure chronic ulcer of other part of right lower leg limited to breakdown of skin; L97.321 Non-pressure chronic ulcer of left ankle limited to breakdown of skin | CPT/HCPCS: 97597; 97598 ==

== ENCOUNTER → 2023-05-14 13:43 | Outpatient (BNVA) | payer MEDICARE, MEDICAID, SELFPAY | PROVIDERS: PCP Internal Medicine; Visit Provider Thoracic Surgery (Cardiothoracic Vascular Surgery) | DX: E11.52 Type 2 diabetes mellitus with diabetic peripheral angiopathy with gangrene (principal); E11.622 Type 2 diabetes mellitus with other skin ulcer; L97.811 Non-pressure chronic ulcer of other part of right lower leg limited to breakdown of skin; L97.321 Non-pressure chronic ulcer of left ankle limited to breakdown of skin; I87.2 Venous insufficiency (chronic) (peripheral) | CPT/HCPCS: 15271; 97597; A6021; A6207; A6248; A6250; Q4101 ==

== ENCOUNTER → 2023-05-20 13:06 | Outpatient (BNVA) | payer MEDICARE, MEDICAID, SELFPAY | PROVIDERS: PCP Internal Medicine; Visit Provider Thoracic Surgery (Cardiothoracic Vascular Surgery) | DX: E11.52 Type 2 diabetes mellitus with diabetic peripheral angiopathy with gangrene (principal); E11.622 Type 2 diabetes mellitus with other skin ulcer; L97.821 Non-pressure chronic ulcer of other part of left lower leg limited to breakdown of skin; L97.811 Non-pressure chronic ulcer of other part of right lower leg limited to breakdown of skin; L97.321 Non-pressure chronic ulcer of left ankle limited to breakdown of skin; I87.2 Venous insufficiency (chronic) (peripheral) | CPT/HCPCS: 99211 ==

== ENCOUNTER 2023-05-21 11:04 | Outpatient (CLI) | payer MEDICARE, MEDICAID, SELFPAY ==
--- NOTE | 2023-05-21 11:15 | XR_ITS ---
WS: [id number] Examination: XR hip RT 2-3V wo/w pel* [id number] Reason for Exam: R HIP PAIN FOLLOWING FALL Date: May 21, 2023 Comparison: January 12, 2023 Findings: The bone density is maintained. There is no destruction There is no fracture or dislocation Mild degenerative changes are again noted. Vascular calcification is identified. Impression: No acute displaced fractures appreciated.
== END 2023-05-21 11:05 | disposition home or self-care (01) ==
LOC: RAD 11:08
PROVIDERS: PCP Internal Medicine; Visit Provider Internal Medicine
DX: M25.551 Pain in right hip (principal)
CPT/HCPCS: 15271; 73502; 97597; A6250; Q4101

== ENCOUNTER → 2023-05-29 09:58 | Outpatient (BNVA) | payer MEDICARE, MEDICAID, SELFPAY | PROVIDERS: PCP Internal Medicine; Visit Provider Thoracic Surgery (Cardiothoracic Vascular Surgery) | DX: E11.52 Type 2 diabetes mellitus with diabetic peripheral angiopathy with gangrene (principal); E11.622 Type 2 diabetes mellitus with other skin ulcer; L97.821 Non-pressure chronic ulcer of other part of left lower leg limited to breakdown of skin; L97.811 Non-pressure chronic ulcer of other part of right lower leg limited to breakdown of skin; I87.2 Venous insufficiency (chronic) (peripheral) | CPT/HCPCS: 15271; 15272; 97597; A6021; A6250; Q4101 ==

== ENCOUNTER 2023-06-02 22:01 | Emergency (ER) | payer MEDICARE, MEDICAID, SELFPAY ==
[2023-06-02 22:03] VITALS: BP 135/62; PULSE 51; RESP 15; TEMP 36.6; O2SAT 95; BMI 46.1
--- NOTE | 2023-06-02 22:03 | ED_ITS ---
HPI - Extremity Injury (Lower) General: Chief Complaint: Fall Stated Complaint: right hip pain Time Seen by Provider: 06/02/23 22:02 History of Present Illness: 67-year-old female presents emergency de partment via EMS personnel stating that she had an accidental fall in her bathroom and states she has sharp shooting pain to her right hip. She states she was not able to stand and bear weight immediately after the fall. EMS personnel state they did assist her to turn and pivot into the cot without difficulty. Patient states she does not think she hit her head but she is on anticoagulation for her atrial fibrillation. She states her current pain is a 10 out of 10 and worse with any attempts of standing. She denies numbness or tingling to the extremities. She denies headache or back pain at present. Review of Systems General: Reports: 10 or more systems reviewed and unremarkable except in HPI and below Musc: Reports: extremity pain; Denies: neck pain or extremity swelling PFSH ED PFSH: Medical History CKD (chronic kidney disease) Atherosclerosis of coronary artery of [place] heart without angina pectoris Peripheral arterial disease Lower extremity edema Leg pain Chronic venous insufficiency Chronic obstructive pulmonary disease Atrial fibrillation, chronic Diastolic heart failure Anemia Screen for colon cancer History of breast cancer Diabetes Hypertension Surgical History History of esophagogastroduodenoscopy (EGD) (~08/2019[place] dr. [place] [facility] [place] of colonoscopy with polypectomy (~08/2019) dr. deann om. History of carpal tunnel release of both wrists History of coronary angioplasty with insertion of stent History of coronary artery balloon dilation History of lumpectomy Family History Father CAD (coronary artery disease), Onset Age: 50 Cancer Diabetes Hyperlipidemia Hypertension Lung disease Denies family history of Clotting disorder Dementia Psychiatric illness Chronic kidney disease (CKD) Suicide Anesthesia complication Bleeding disorder Stroke Social History Smoking and tobacco/nicotine status: former use of tobacco/nicotine Quit status (tobacco/nicotine): has quit using Year quit tobacco: 2016 - 2PPD x 40 Years Alcohol intake: never Substance/Drug Use: never Lives independently: Yes Household members: spouse Marital status: Current occupational status: retired Do you think of yourself as: Straight/Heterosexual Current gender identity: Female Physical Exam Narrative: EXAM NARRATIVE: Constitutional: the patient appears well nourished and with normal development. Vital signs reviewed as documented. HENMT: Normocephalic, atraumatic. External ears normal appearance without drainage. Nose without drainage, normal appearance. Mucus membranes moist. Neck is supple, No jugular venous distension, trachea is midline, no appreciable carotid bruits. No lymphadenopathy. No meningeal signs. Flexion, extension and lateral rotation is without pain. Eyes: Pupils are equal, round, reactive to light and accommodation. No scleral icterus. Extra-ocular movement are intact. Thorax is symmetrical and with equal rise and fall with respirations. Resp: Lungs are clear to auscultation. No wheezes, rales, crackles or ronchi at present. Cardio: Regular rate and rhythm. Positive S1, S2. No appreciable murmurs, rubs or gallops. GI: Abdominal exam reveals normal bowel sounds to all quadrants. No organomegaly. No obvious palpable masses noted. No hepatomegally appreciated. Soft, non-tender to palpation. Extremity: Extremities are non-edematous and both femoral and pedal pulses are 2+ and equal bilaterally. Moves all extremities well, sensation in all extremities. Compression dressing noted to bilateral lower extremity. Patient is tender to palpation to the right greater trochanter area. Her extremity does not appear to be shortened or internally rotated. She is able to flex and extend her legs without difficulty. Neuro: Alert and oriented x4, person, place, time and situation. Cranial nerves II through XII are grossly intact, there is no focal neurological deficits that I can appreciate at present. Sensation intact to all extremities. 2-point discrimination intact. Light touch intact to all extremities. Motor strength in the upper and lower extremities are equal and bilateral 5/5. Psych: Cooperative, calm, normal thought process, appropriate judgment. Skin: No lesions, rashes. Patient does have a superficial skin tear to the left upper arm. Back: Symmetrical, no obvious deformity, No CVA tenderness Course Vital Signs: Vital signs: Vital Signs Temperature 97.9 F 06/02/23 22:03 Pulse Rate 47 L 06/02/23 23:37 Respiratory Rate 18 06/02/23 23:37 Blood Pressure 163/73 06/02/23 23:37 Pulse Oximetry 93 06/02/23 23:37 Oxygen Delivery Me thod Room Air 06/02/23 22:03 MDM - Extremity Injury (Lower) Medical Decision Making Physical exam completed and documented. I did obtain a CT scan of the patient's head and cervical spine which were negative for acute findings. I also obtained a pelvic x-ray which given the radiological report raise concern and suggested obtaining a CT of the pelvis. I did obtain a CT of the pelvis and it does appear that the report states that there is no acute fracture although there is concern for impending pathological fracture given the CT scan findings. Patient was provided pain medication while in the emergency department and was provided written prescriptions and discharge instructions at the time of discharge. Medical Records I reviewed the patient's medical records. Lab Data Radiology Impressions Cervical Spine CT 06/02/23 22:12 IMPRESSION: No acute fracture or traumatic malalignment. Head CT 06/02/23 22:12 IMPRESSION: No acute intracranial hemorrhage or acute calvarial fracture. Hip/Pelvis X-Ray 06/02/23 22:12 IMPRESSION: 1. No acute findings. 2. If pain persists, CT may be helpful to rule out occult pathology if clinically indicated. Femur X-Ray 06/02/23 23:58 IMPRESSION: No acute fracture or dislocation. Pelvis CT 06/02/23 23:58 IMPRESSION: 1. No acute fracture or dislocation. 2. Expands the lytic lesion within the right iliac bone with cortical thinning and focal cortical breakthrough, new from 12/06/2020 CT. Considerations include plasmacytoma or metastasis. Cortical breakthrough raises concern for impending pathologic fracture. All radiology interpretation(s) finalized by discharge Discharge Plan Discharge Patient Disposition: Home Clinical Impression: Accidental fall, Contusion of hip, right, Acute pain of right hip Condition: Stable Prescriptions: New hydrocodone-acetaminophen 5-325 mg tablet 1 tab PO Q8H PRN (Reason: pain) Qty: 14 0RF cyclobenzaprine 10 mg tablet 10 mg PO Q8H Qty: 14 0RF No Action Tresiba FlexTouch U-100 100 unit/mL (3 mL) insulin pen 42 unit SUBCUT BID insulin lispro [Humalog KwikPen Insulin] 100 unit/mL insulin pen 30 unit SUBCUT TID pentoxifylline 400 mg tablet extended release 400 mg PO TID Qty: 90 4RF Rx Instructions: must administer with a meal/food diltiazem HCl 120 mg capsule,extended release 24hr 120 mg PO DAILY Qty: 90 3RF Eliquis 5 mg tablet 5 mg PO BID Qty: 180 3RF clopidogrel 75 mg tablet 75 mg PO DAILY Qty: 90 3RF (DME) Coordinator Of [employer] Services brace See Rx Instructions .Route .MEDSUPPLY Qty: 1 0RF Rx Instructions: As directed levofloxacin 500 mg tablet 500 mg PO Q48H Qty: 7 0RF Stiolto Respimat 2.5-2.5 mcg/actuation mist 2 puff inhalation DAILY@07 Qty: 4 5RF metoprolol tartrate 50 mg tablet 100 mg PO BID Qty: 180 3RF clonidine HCl 0.1 mg tablet 0.1 mg PO Q8H simvastatin 10 mg tablet 10 mg PO DAILY@2200 allopurinol 100 mg tablet 100 mg PO DAILY@0700 isosorbide mononitrate 60 mg tablet extended release 24 hr 90 mg PO DAILY@0700 gabapentin 300 mg capsule 300 mg PO TID@07,, polyethylene glycol 3350 17 gram/dose powder 17 g PO DAILY PRN (Reason: Constipation) aspirin 325 mg Tablet 325 mg PO DAILY@0700 Hold Instructions: Resume on 09/09/19. pantoprazole 40 mg tablet,delayed release (DR/EC) 40 mg PO QAM duloxetine 30 mg capsule,delayed release(DR/EC) 30 mg PO QAM bumetanide 1 mg tablet 1 mg PO QAM ergocalciferol (vitamin D2) 1,250 mcg (50,000 unit) capsule 50,000 unit PO Q7D Rx Instructions: on Farxiga 10 mg tablet 10 mg PO QAM bumetanide 2 mg tablet 2 mg PO DAILY Qty: 5 0RF tramadol 50 mg tablet 50 mg PO BID PRN (Reason: Pain) Discharge Orders: Discharge ED (Routine); Ordered 06/03/23 Ordered By: Arnie Garcia Referrals: Jeanine Solares MD [Primary Care Provider] - Discharge Diet: Usual diet Discharge Activity: Resume usual activity Patient Instructions: Opioid Safety, Pain Management Activity Restrictions/Additional Instructions: Activity Restrictions/Additional Instructions: Thank you for choosing [facility] for your healthcare needs today. Please realize that you were seen in the Emergency Department and that we are providing you with an emergency medical screening exam and this may not be a complete and all inclusive of all the testing and or medical work-up that you may need to determine your ailment or severity of your illness. It is very important that you follow-up as instructed with your Primary care provider or Specialist for additional evaluation and to discuss your medical treatment plan. You may return to the Emergency Department should you have concerns or if your condition changes or worsens in any way. Coding Level of Care Code ED Utilization Coordinator for Tang Ambrosio
--- NOTE | 2023-06-02 22:12 | CTR_ITS ---
PROCEDURE INFORMATION: Exam: CT Head Without Contrast Exam date and time: 06/02/2023 10:33 PM Age: 67 years old Clinical indication: Injury or trauma; Fall; Other: Pain; Additional info: Trauma/fall TECHNIQUE: Imaging protocol: Computed tomography of the head without contrast. Radiation optimization: All CT scans at this facility use at least one of these dose optimization techniques: automated exposure control; mA and/or kV adjustment per patient size (includes targeted exams where dose is matched to clinical indication); or iterative reconstruction. COMPARISON: CT head wo con* [id number] 01/12/2023 8:03 AM RADIATION DOSE METRICS: Total DLP (mGy-cm): 1029.5 FINDINGS: Brain: No acute intracranial hemorrhage. No acute territorial region of [place] dedifferentiation. No extra-axial collection. No mass effect or midline shift. Mild burden of nonspecific white matter hypoattenuation, likely chronic microvascular ischemic change. Generalized parenchymal volume loss. Cerebral ventricles: No acute hydrocephalus. Paranasal sinuses: Visualized sinuses are well-aerated. No fluid levels. Mastoid air cells: Visualized mastoid air cells are well aerated. Orbital cavities: No acute abnormality. Bones/joints: No acute calvarial fracture. Soft tissues: No acute abnormality. CT/CT head wo con* [id number] IMPRESSION: No acute intracranial hemorrhage or acute calvarial fracture.
--- NOTE | 2023-06-02 22:12 | XRR_ITS ---
PROCEDURE INFORMATION: Exam: XR Right Hip Exam date and time: 06/02/2023 10:16 PM Age: 67 years old Clinical indication: Injury or trauma; Fall; Blunt trauma (contusions or hematomas); Right; Hip; Additional info: Fall/trauma TECHNIQUE: Imaging protocol: Radiologic exam of the right hip. Views: 1 view hip with pelvis when performed. COMPARISON: CR XR hip RT 2-3V wo/w pel* [id number] 05/21/2023 11:27 AM FINDINGS: Bones/joints: Unremarkable. No acute fracture. Soft tissues: Unremarkable. XR/XR hip RT 2-3V wo/w pel* [id number] IMPRESSION: 1. No acute findings. 2. If pain persists, CT may be helpful to rule out occult pathology if clinically indicated.
--- NOTE | 2023-06-02 22:12 | CTR_ITS ---
PROCEDURE INFORMATION: Exam: CT Cervical Spine Without Contrast Exam date and time: 06/02/2023 10:33 PM Age: 67 years old Clinical indication: Injury or trauma; Fall; Other: Pain; Additional info: Trauma/fall TECHNIQUE: Imaging protocol: Computed tomography of the cervical spine without contrast. Radiation optimization: All CT scans at this facility use at least one of these dose optimization techniques: automated exposure control; mA and/or kV adjustment per patient size (includes targeted exams where dose is matched to clinical indication); or iterative reconstruction. COMPARISON: CT cervical spin wo con* [id number] 01/12/2023 8:03 AM RADIATION DOSE METRICS: Total DLP (mGy-cm): 715.4 FINDINGS: Bones/joints: Craniocervical and facet alignment is preserved. Vertebral body heights maintained. No acute fracture. Lungs: Imaged lung apices are unremarkable. Soft tissues: Unremarkable. CT/CT cervical spin wo con* [id number] IMPRESSION: No acute fracture or traumatic malalignment.
[2023-06-02 23:37] VITALS: BP 163/73; PULSE 47; RESP 18; O2SAT 93
--- NOTE | 2023-06-02 23:58 | CTR_ITS ---
PROCEDURE INFORMATION: Exam: CT Pelvis Without Contrast; Skeletal Exam date and time: 06/03/2023 12:42 AM Age: 67 years old Clinical indication: Injury or trauma; Fall; Other: Pain; Additional info: Trauma/fall TECHNIQUE: Imaging protocol: Computed tomography of the pelvis without contrast. Exam focused on the skeleton. Radiation optimization: All CT scans at this facility use at least one of these dose optimization techniques: automated exposure control; mA and/or kV adjustment per patient size (includes targeted exams where dose is matched to clinical indication); or iterative reconstruction. COMPARISON: CT abdomen pelvis w con* [id number] 12/06/2020 9:11 AM RADIATION DOSE METRICS: Total DLP (mGy-cm): 933.7 FINDINGS: Gallbladder and bile ducts: Small amount of hyperdense material layering in the gallbladder, either tiny stones or sludge. Stomach and bowel: Colonic diverticulosis without CT evidence of acute diverticulitis. Vasculature: Aortoiliac atherosclerosis. No aortic aneurysm. Bones/joints: No acute fracture or dislocation. There is a mildly expansile lytic lesion with diffuse cortical thinning and small area of cortical breakthrough along the outer cortex, series 3, image 39. Lower lumbar spondylosis. Soft tissues: Left flank subcutaneous contusion. CT/CT bony pelvis [id number] IMPRESSION: 1. No acute fracture or dislocation. 2. Expands the lytic lesion within the right iliac bone with cortical thinning and focal cortical breakthrough, new from 12/06/2020 CT. Considerations include plasmacytoma or metastasis. Cortical breakthrough raises concern for impending pathologic fracture.
--- NOTE | 2023-06-02 23:58 | XRR_ITS ---
PROCEDURE INFORMATION: Exam: XR Right Femur Exam date and time: 06/03/2023 12:31 AM Age: 67 years old Clinical indication: Injury or trauma; Fall; Other: Pain; Additional info: Trauma/fall TECHNIQUE: Imaging protocol: Radiologic exam of the right femur. Views: 2 views. COMPARISON: CT angio abd aorta runof [id number] 09/15/2022 6:51 AM FINDINGS: Bones/joints: No acute fracture or dislocation. Tricompartmental knee osteoarthritis, severe in the medial tibiofemoral and patellofemoral compartments and at least moderate in the lateral tibiofemoral compartment.. No large knee joint effusion. Soft tissues: Unremarkable. Vasculature: Vascular calcifications. XR/XR femur RT min 2V* [id number] IMPRESSION: No acute fracture or dislocation.
[2023-06-03 00:30] VITALS: BP 166/80; PULSE 49; RESP 19; O2SAT 93
[2023-06-03] MEDS: HYDROcodone-acetaminophen 10-325 mg Tablet 1 TAB PO (01:51)
[2023-06-03 02:05] VITALS: BP 172/81; PULSE 50; RESP 18; O2SAT 93
== END 2023-06-03 02:07 | disposition home or self-care (01) ==
PROVIDERS: Emergency Provider Internal Medicine; PCP Internal Medicine
DX: S70.01XA Contusion of right hip, initial encounter (principal); Z79.84 Long term (current) use of oral hypoglycemic drugs; Z79.02 Long term (current) use of antithrombotics/antiplatelets; Z79.01 Long term (current) use of anticoagulants; Z79.82 Long term (current) use of aspirin; Z87.891 Personal history of nicotine dependence; E11.22 Type 2 diabetes mellitus with diabetic chronic kidney disease; I13.0 Hypertensive heart and chronic kidney disease with heart failure and stage 1 through stage 4 chronic kidney disease, or unspecified chronic kidney disease; N18.9 Chronic kidney disease, unspecified; I50.30 Unspecified diastolic (congestive) heart failure; I25.10 Atherosclerotic heart disease of native coronary artery without angina pectoris; J44.9 Chronic obstructive pulmonary disease, unspecified; Z85.3 Personal history of malignant neoplasm of breast
CPT/HCPCS: 70450; 72125; 72192; 73502; 73552; 99284

== ENCOUNTER → 2023-06-05 10:03 | Outpatient (BNVA) | payer MEDICARE, MEDICAID, SELFPAY | PROVIDERS: PCP Internal Medicine; Visit Provider Thoracic Surgery (Cardiothoracic Vascular Surgery) | DX: E11.52 Type 2 diabetes mellitus with diabetic peripheral angiopathy with gangrene (principal); E11.622 Type 2 diabetes mellitus with other skin ulcer; L97.821 Non-pressure chronic ulcer of other part of left lower leg limited to breakdown of skin; L97.811 Non-pressure chronic ulcer of other part of right lower leg limited to breakdown of skin; I87.2 Venous insufficiency (chronic) (peripheral) | CPT/HCPCS: 15271; 15272; 97597; A6021; A6250; A6251 ==

== ENCOUNTER → 2023-06-12 09:05 | Outpatient (BNVA) | payer MEDICARE, MEDICAID, SELFPAY | PROVIDERS: PCP Internal Medicine; Visit Provider Thoracic Surgery (Cardiothoracic Vascular Surgery) | DX: I87.2 Venous insufficiency (chronic) (peripheral) (principal); E11.52 Type 2 diabetes mellitus with diabetic peripheral angiopathy with gangrene; E11.622 Type 2 diabetes mellitus with other skin ulcer; L97.821 Non-pressure chronic ulcer of other part of left lower leg limited to breakdown of skin; L97.811 Non-pressure chronic ulcer of other part of right lower leg limited to breakdown of skin; S80.822A Blister (nonthermal), left lower leg, initial encounter; X58.XXXA Exposure to other specified factors, initial encounter | CPT/HCPCS: 15271; 15272; 97597; A6021; A6250; Q4101 ==

== ENCOUNTER 2023-06-18 10:45 | Outpatient (CLI) | payer MEDICARE, MEDICAID, SELFPAY ==
--- NOTE | 2023-06-18 11:19 | CT_ITS ---
WS: [id number] CT-GUIDED ILIAC BONE BIOPSY CLINICAL INFORMATION: BONE LESION, ABNORMAL IMAGING, HX OF BREAST CA DLP: 882 TECHNIQUE: Prior imaging was reviewed. Anesthesia was present for sedation. The procedure including risk, benefits, and complications were discussed with the patient who agreed to proceed. Timeout was performed. Using sterile technique, the patient was prepped and draped in the usual sterile fashion. Patient was positioned LPO and CT images were obtained through the pelvis. The lytic lesion in the RIGHT iliac was selected. After 1% lidocaine using fluoroscopic guidance, a c oaxial osteocyte bone biopsy device was advanced into the RIGHT iliac lesion. Single solid bone core was obtained with a few additional smaller fragments. No immediate complications. CT/CT biopsy bone deep IMPRESSION: 1. Uncomplicated bone core biopsy of the RIGHT iliac lesion. 2. No immediate complications. 3. Patient was discharged 1 hour postprocedure in stable condition. 4. Pathology is pending.
[2023-06-18 11:38] VITALS: BMI 45.8
[2023-06-18 11:55] VITALS: BP 105/54; PULSE 56; RESP 20; TEMP 36.2; O2SAT 95
[2023-06-18 12:00] LABS: Glucose Point of Care 273 mg/dL (70-110)
[2023-06-18] MEDS: sodium chloride 0.9% 1,000 ML 30 ML IV (12:15)
[2023-06-18 12:16] LABS: INR 1.18 (0.8-1.2)
--- NOTE | 2023-06-18 12:32 | ANES.PREANE2 ---
Pre-Anesthetic Assessment Height/Weight: Height 1.68 m Weight 128.82 kg Temp Pulse Resp BP Pulse Ox O2 Del Method 97.2 F L 56 L 20 H 105/54 95 Room Air 06/18/23 11:55 06/18/23 11:55 06/18/23 11:55 06/18/23 11:55 06/18/23 11:55 06/18/23 11:55 Operation Date: 06/18/23 12:[address] Biopsy(Right) - DOCTOR NOT ON FILE Familial anesthetic complications: none Was Beta Rogers taken within 24 hours: Yes Was Clonidine taken within 24 hours: N/A Last intake: Intake Last Liquid Date 06/18/23 Last Liquid Time 06:10 Last Solid Date 06/17/23 Last Solid Time 19:00 Social No alcohol and No tobacco Exam alert and oriented x 3 Airway Mallampati: Class III Dentition: false History/ROS No significant history except as noted Pulmonary Sleep Apnea Hospitalized w/ pneumonia and Flu A in April at [facility]- was on O2, is now back to baseline on RA, does occasionally use inhaler now. CV/HEM Atrial Fibrillation, Coronary Artery Disease, Congestive Heart Failure, Hypertension, Myocardial Infarction (2008 with stents; balloon angiography in 2017) and Peripheral Vascular Disease pericardial effusion in january 2023 and again in April 2023 Chronic Renal Failure (not on dialysis) Hepatic None reported GI Gastroesophageal Reflux Disease Metabolic Diabetes Mellitus and Morbid Ob[place] [facility] [place] None reported Neuropsych Neuropathy Anesthetic Plan ASA status: 4 Anesthesia: Anesthesia Evaluation, General (#2) and MAC (#1) Risk of > 500 ml blood loss (7ml/kg in children): No Medications/Allergies Home Medications Medication Instructions Recorded Confirmed Last Taken Type allopurinol 100 mg tablet 100 mg PO DAILY@0700 04/25/19 06/18/23 06/18/23 06:30 History gabapentin 300 mg capsule 300 mg PO TID@,,04/25/19 06/18/23 06/18/23 06:30 History isosorbide mononitrate 60 mg 90 mg PO DAILY@0700 04/25/19 06/18/23 06/18/23 06:30 History tablet,extended release 24 hr polyethylene glycol 3350 17 17 g PO DAILY PRN Constipation 04/25/19 06/18/23 2 Months Ago History gram/dose oral powder ~04/18/23 insulin degludec 100 unit/mL (3 42 unit SUBCUT BID 09/06/20 06/18/23 06/17/23 17:30 History mL) subcutaneous pen (Tresiba FlexTouch U-100 insulin) insulin lispro 100 unit/mL 30 unit SUBCUT TID 07/30/21 06/18/23 06/17/23 17:30 History subcutaneous pen (Humalog KwikPen (U-100) Insulin) tiotropium 2.5 mcg-olodaterol 2.5 2 puff inhalation DAILY@07 #4 grams 06/16/22 06/18/23 06/18/23 06:30 Rx mcg/actuation mist for inhalation (Stiolto Respimat) Medical Office Representative brace #1 ea 08/18/22 06/18/23 11/13/22 05:00 Rx tramadol 50 mg tablet 50 mg PO BID PRN Pain 09/02/22 06/18/23 06/18/23 06:30 History pentoxifylline 400 mg 400 mg PO TID #90 tabs 09/17/22 06/18/23 06/18/23 06:30 Rx tablet,extended release duloxetine 30 mg capsule,delayed 30 mg PO QAM 10/15/22 06/18/23 06/18/23 06:30 History release pantoprazole 40 mg tablet,delayed 40 mg PO QAM 10/15/22 06/18/23 06/18/23 06:30 History release apixaban 5 mg tablet (Eliquis) 5 mg PO BID #180 tabs 01/22/23 06/18/23 06/13/23 Rx clopidogrel 75 mg tablet 75 mg PO DAILY #90 tabs 01/22/23 06/18/23 06/13/23 Rx diltiazem HCl 120 mg 120 mg PO DAILY #90 caps 01/22/23 06/18/23 06/18/23 06:30 Rx capsule,extended release 24 hr metoprolol tartrate 50 mg tablet 100 mg (2 x 50 mg) PO BID #180 tabs 05/19/23 06/18/23 06/18/23 06:30 Rx hydrocodone 5 mg-acetaminophen 325 1 tab PO Q8H PRN pain #14 tabs 06/03/23 06/18/23 06/18/23 06:30 Rx mg tablet aspirin 81 mg tablet,delayed 81 mg PO DAILY 06/15/23 06/18/23 06/13/23 History release clonidine HCl 0.3 mg tablet 0.3 mg PO TID 06/15/23 06/18/23 06/18/23 06:30 History cyclobenzaprine 10 mg tablet 10 mg PO Q8H PRN Spasms 06/15/23 06/18/23 06/18/23 06:30 History furosemide 80 mg tablet 80 mg PO DAILY 06/15/23 06/18/23 06/18/23 06:30 History rosuvastatin 20 mg tablet 20 mg PO BEDTIME 06/15/23 06/18/23 06/17/23 History Allergies Allergy/AdvReac Type Severity Reaction Status Date / Time anastrozole Allergy ALGY-Joint Verified 04/02/23 09:36 Pain PFSH Anesthesia Medical History CKD (chronic kidney disease) Atherosclerosis of coronary artery of [place] heart without angina pectoris Peripheral arterial disease Lower extremity edema Leg pain Chronic venous insufficiency Chronic obstructive pulmonary disease Atrial fibrillation, chronic Diastolic heart failure Anemia Screen for colon cancer History of breast cancer Diabetes Hypertension Surgical History History of esophagogastroduodenoscopy (EGD) (~08/2019) dr. zacarias, [facility] [place]. History of colonoscopy with polypectomy (~08/2019) dr. zacarias, [facility] [place]. History of carpal tunnel release of both wrists History of coronary angioplasty with insertion of stent History of coronary artery balloon dilation History of lumpectomy Family History Father CAD (coronary artery disease), Onset Age: 50 Cancer Diabetes Hyperlipidemia Hypertension Lung disease Denies family history of Clotting disorder Dementia Psychiatric illness Chronic kidney disease (CKD) Suicide Anesthesia complication Bleeding disorder Stroke Social History Smoking and tobacco/nicotine status: former use of tobacco/nicotine Quit status (tobacco/nicotine): has quit using Year quit tobacco: 2016 - 2PPD x 40 Years Alcohol intake: never Substance/Drug Use: never Lives independently: Yes Household members: spouse Marital status: Current occupational status: retired Do you think of yourself as: Straight/Heterosexual Current gender identity: Female Data Anesthesia Coags 06/18/23 11:45 PT 15.40 H INR 1.18 Cardiac Studies: Echocardiogram 12/31/22 Echocardiogram Ultrasound 12/23/19 Sestamibi Stress Test (Cardiology) 01/18/23
[2023-06-18 14:58] VITALS: BP 148/78; PULSE 63; RESP 14; TEMP 36.3; O2SAT 100
[2023-06-18 15:16] VITALS: BP 147/65; PULSE 62; RESP 16; O2SAT 96
--- NOTE | 2023-06-18 15:52 | ANE.PACU2 ---
Inpatient post-anesthesia follow up: Airway intact: Yes Vital signs: Temperature 97.3 F Pulse Rate 62 Respiratory Rate 16 Blood Pressure 147/65 Pulse Oximetry 96 Oxygen Delivery Me thod Room Air Oxygen Flow Rate Fraction of Inspir ed Oxygen Hydration adequate: Yes Nausea and vomiting: No Pain level: 1 Mental status: Baseline
== END 2023-06-18 15:46 | disposition home or self-care (01) ==
PROVIDERS: Radiology Neuroradiology; PCP Internal Medicine; Visit Provider Internal Medicine
DX: R93.89 Abnormal findings on diagnostic imaging of other specified body structures (principal); Z85.3 Personal history of malignant neoplasm of breast; G47.30 Sleep apnea, unspecified; I48.91 Unspecified atrial fibrillation; I25.10 Atherosclerotic heart disease of native coronary artery without angina pectoris; I50.9 Heart failure, unspecified; E11.22 Type 2 diabetes mellitus with diabetic chronic kidney disease; I13.0 Hypertensive heart and chronic kidney disease with heart failure and stage 1 through stage 4 chronic kidney disease, or unspecified chronic kidney disease; N18.9 Chronic kidney disease, unspecified; I25.2 Old myocardial infarction; Z95.5 Presence of coronary angioplasty implant and graft; E11.40 Type 2 diabetes mellitus with diabetic neuropathy, unspecified; E66.01 Morbid (severe) obesity due to excess calories; Z68.42 Body mass index [BMI] 45.0-49.9, adult; Z79.4 Long term (current) use of insulin
CPT/HCPCS: 20225; 36415; 36416; 77012; 82962; 85610; 88307; 88311; J2704; J7030

== ENCOUNTER → 2023-06-19 08:56 | Outpatient (BNVA) | payer MEDICARE, MEDICAID, SELFPAY | PROVIDERS: PCP Internal Medicine; Visit Provider Thoracic Surgery (Cardiothoracic Vascular Surgery) | DX: I87.2 Venous insufficiency (chronic) (peripheral) (principal); E11.52 Type 2 diabetes mellitus with diabetic peripheral angiopathy with gangrene; E11.622 Type 2 diabetes mellitus with other skin ulcer; L97.821 Non-pressure chronic ulcer of other part of left lower leg limited to breakdown of skin; L97.811 Non-pressure chronic ulcer of other part of right lower leg limited to breakdown of skin | CPT/HCPCS: 97597; 97598; A6021 ==

== ENCOUNTER → 2023-06-25 10:11 | Outpatient (BNVA) | payer MEDICARE, MEDICAID, SELFPAY | PROVIDERS: PCP Internal Medicine; Visit Provider Dermatology | DX: L57.0 Actinic keratosis (principal); L82.1 Other seborrheic keratosis; D69.2 Other nonthrombocytopenic purpura; L57.8 Other skin changes due to chronic exposure to nonionizing radiation | CPT/HCPCS: 17000; 99214 ==

== ENCOUNTER → 2023-06-26 10:08 | Outpatient (BNVA) | payer MEDICARE, MEDICAID, SELFPAY | PROVIDERS: PCP Internal Medicine; Visit Provider Thoracic Surgery (Cardiothoracic Vascular Surgery) | DX: I87.2 Venous insufficiency (chronic) (peripheral) (principal); E11.52 Type 2 diabetes mellitus with diabetic peripheral angiopathy with gangrene; E11.622 Type 2 diabetes mellitus with other skin ulcer; L97.822 Non-pressure chronic ulcer of other part of left lower leg with fat layer exposed; L97.811 Non-pressure chronic ulcer of other part of right lower leg limited to breakdown of skin | CPT/HCPCS: 97597; 97598; A6021; A6252 ==

== ENCOUNTER → 2023-07-10 09:56 | Outpatient (BNVA) | payer MEDICARE, MEDICAID, SELFPAY | PROVIDERS: PCP Internal Medicine; Visit Provider Thoracic Surgery (Cardiothoracic Vascular Surgery) | DX: I87.2 Venous insufficiency (chronic) (peripheral) (principal); E11.52 Type 2 diabetes mellitus with diabetic peripheral angiopathy with gangrene; E11.622 Type 2 diabetes mellitus with other skin ulcer; L97.821 Non-pressure chronic ulcer of other part of left lower leg limited to breakdown of skin; L97.811 Non-pressure chronic ulcer of other part of right lower leg limited to breakdown of skin | CPT/HCPCS: 97597; 97598 ==

== ENCOUNTER → 2023-07-24 09:51 | Outpatient (BNVA) | payer MEDICARE, MEDICAID, SELFPAY | PROVIDERS: PCP Internal Medicine; Visit Provider Thoracic Surgery (Cardiothoracic Vascular Surgery) | DX: E11.52 Type 2 diabetes mellitus with diabetic peripheral angiopathy with gangrene (principal); E11.622 Type 2 diabetes mellitus with other skin ulcer; L97.821 Non-pressure chronic ulcer of other part of left lower leg limited to breakdown of skin; L97.811 Non-pressure chronic ulcer of other part of right lower leg limited to breakdown of skin; I87.2 Venous insufficiency (chronic) (peripheral) | CPT/HCPCS: 97597; A6021; A6252 ==

== ENCOUNTER → 2023-08-14 09:56 | Outpatient (BNVA) | payer MEDICARE, MEDICAID, SELFPAY | PROVIDERS: PCP Internal Medicine; Visit Provider Thoracic Surgery (Cardiothoracic Vascular Surgery) | DX: E11.52 Type 2 diabetes mellitus with diabetic peripheral angiopathy with gangrene (principal); I87.2 Venous insufficiency (chronic) (peripheral); E11.622 Type 2 diabetes mellitus with other skin ulcer | CPT/HCPCS: 97597; A6021; A6252 ==

== ENCOUNTER → 2023-08-27 15:08 | Outpatient (BNVA) | payer MEDICARE, MEDICAID, SELFPAY | PROVIDERS: PCP Internal Medicine; Visit Provider Thoracic Surgery (Cardiothoracic Vascular Surgery) | DX: I87.2 Venous insufficiency (chronic) (peripheral) (principal); E11.52 Type 2 diabetes mellitus with diabetic peripheral angiopathy with gangrene; L97.821 Non-pressure chronic ulcer of other part of left lower leg limited to breakdown of skin | CPT/HCPCS: 97597; A6021; A6252 ==

== ENCOUNTER → 2023-09-11 08:49 | Outpatient (BNVA) | payer MEDICARE, MEDICAID, SELFPAY | PROVIDERS: PCP Internal Medicine; Visit Provider Thoracic Surgery (Cardiothoracic Vascular Surgery) | DX: E11.52 Type 2 diabetes mellitus with diabetic peripheral angiopathy with gangrene (principal); E11.621 Type 2 diabetes mellitus with foot ulcer; L97.821 Non-pressure chronic ulcer of other part of left lower leg limited to breakdown of skin | CPT/HCPCS: 97597; A6021 ==

== ENCOUNTER → 2023-09-18 09:40 | Outpatient (BNVA) | payer MEDICARE, MEDICAID, SELFPAY | PROVIDERS: PCP Internal Medicine; Visit Provider Thoracic Surgery (Cardiothoracic Vascular Surgery) | DX: E11.52 Type 2 diabetes mellitus with diabetic peripheral angiopathy with gangrene (principal); E11.621 Type 2 diabetes mellitus with foot ulcer; L97.821 Non-pressure chronic ulcer of other part of left lower leg limited to breakdown of skin | CPT/HCPCS: 97597; A6021 ==

== ENCOUNTER → 2023-10-02 09:52 | Outpatient (BNVA) | payer MEDICARE, MEDICAID, SELFPAY | PROVIDERS: PCP Internal Medicine; Visit Provider Thoracic Surgery (Cardiothoracic Vascular Surgery) | DX: E11.52 Type 2 diabetes mellitus with diabetic peripheral angiopathy with gangrene (principal); E11.622 Type 2 diabetes mellitus with other skin ulcer; L97.821 Non-pressure chronic ulcer of other part of left lower leg limited to breakdown of skin; I87.2 Venous insufficiency (chronic) (peripheral) | CPT/HCPCS: 97597; A6021 ==

== ENCOUNTER → 2023-10-16 10:15 | Outpatient (BNVA) | payer MEDICARE, MEDICAID, SELFPAY | PROVIDERS: PCP Internal Medicine; Visit Provider Thoracic Surgery (Cardiothoracic Vascular Surgery) | DX: I87.2 Venous insufficiency (chronic) (peripheral) (principal); E11.52 Type 2 diabetes mellitus with diabetic peripheral angiopathy with gangrene; E11.622 Type 2 diabetes mellitus with other skin ulcer; L97.821 Non-pressure chronic ulcer of other part of left lower leg limited to breakdown of skin | CPT/HCPCS: 97597; A6021 ==

== ENCOUNTER → 2023-10-30 10:10 | Outpatient (BNVA) | payer MEDICARE, MEDICAID, SELFPAY | PROVIDERS: PCP Internal Medicine; Visit Provider Thoracic Surgery (Cardiothoracic Vascular Surgery) | DX: E11.52 Type 2 diabetes mellitus with diabetic peripheral angiopathy with gangrene (principal); E11.622 Type 2 diabetes mellitus with other skin ulcer; L97.821 Non-pressure chronic ulcer of other part of left lower leg limited to breakdown of skin; I87.2 Venous insufficiency (chronic) (peripheral) | CPT/HCPCS: 97597; A6197; A6252 ==

== ENCOUNTER → 2023-11-10 10:05 | Outpatient (BNVA) | payer MEDICARE, MEDICAID, SELFPAY | PROVIDERS: PCP Internal Medicine; Visit Provider Thoracic Surgery (Cardiothoracic Vascular Surgery) | DX: E11.52 Type 2 diabetes mellitus with diabetic peripheral angiopathy with gangrene (principal); E11.622 Type 2 diabetes mellitus with other skin ulcer; L97.821 Non-pressure chronic ulcer of other part of left lower leg limited to breakdown of skin; E11.621 Type 2 diabetes mellitus with foot ulcer; L97.311 Non-pressure chronic ulcer of right ankle limited to breakdown of skin; L97.511 Non-pressure chronic ulcer of other part of right foot limited to breakdown of skin | CPT/HCPCS: 97597; 97598; A6197; A6252 ==

== ENCOUNTER → 2023-11-27 10:37 | Outpatient (BNVA) | payer MEDICARE, MEDICAID, SELFPAY | PROVIDERS: PCP Internal Medicine; Visit Provider Thoracic Surgery (Cardiothoracic Vascular Surgery) | DX: E11.622 Type 2 diabetes mellitus with other skin ulcer (principal); L97.811 Non-pressure chronic ulcer of other part of right lower leg limited to breakdown of skin; L97.822 Non-pressure chronic ulcer of other part of left lower leg with fat layer exposed; R60.0 Localized edema | CPT/HCPCS: 97597 ==

== ENCOUNTER → 2023-12-04 09:50 | Outpatient (BNVA) | payer MEDICARE, MEDICAID, SELFPAY | PROVIDERS: PCP Internal Medicine; Visit Provider Thoracic Surgery (Cardiothoracic Vascular Surgery) | DX: E11.52 Type 2 diabetes mellitus with diabetic peripheral angiopathy with gangrene (principal); E11.622 Type 2 diabetes mellitus with other skin ulcer; L97.821 Non-pressure chronic ulcer of other part of left lower leg limited to breakdown of skin; Z09 Encounter for follow-up examination after completed treatment for conditions other than malignant neoplasm | CPT/HCPCS: 29581; 97597; A6210 ==

== ENCOUNTER → 2023-12-11 09:54 | Outpatient (BNVA) | payer MEDICARE, MEDICAID, SELFPAY | PROVIDERS: PCP Internal Medicine; Visit Provider Thoracic Surgery (Cardiothoracic Vascular Surgery) | DX: I87.2 Venous insufficiency (chronic) (peripheral) (principal); E11.52 Type 2 diabetes mellitus with diabetic peripheral angiopathy with gangrene; E11.622 Type 2 diabetes mellitus with other skin ulcer; L97.821 Non-pressure chronic ulcer of other part of left lower leg limited to breakdown of skin | CPT/HCPCS: 97597; A6210 ==

== ENCOUNTER → 2023-12-18 09:50 | Outpatient (BNVA) | payer MEDICARE, MEDICAID, SELFPAY | PROVIDERS: PCP Internal Medicine; Visit Provider Thoracic Surgery (Cardiothoracic Vascular Surgery) | DX: E11.52 Type 2 diabetes mellitus with diabetic peripheral angiopathy with gangrene (principal); I87.2 Venous insufficiency (chronic) (peripheral); E11.622 Type 2 diabetes mellitus with other skin ulcer; L97.821 Non-pressure chronic ulcer of other part of left lower leg limited to breakdown of skin | CPT/HCPCS: 97597; A6210 ==

== ENCOUNTER → 2023-12-23 17:18 | Outpatient (BNVA) | payer MEDICARE, MEDICAID, SELFPAY | PROVIDERS: PCP Internal Medicine; Visit Provider Internal Medicine Cardiovascular Disease | DX: I10 Essential (primary) hypertension (principal); D64.9 Anemia, unspecified; I50.32 Chronic diastolic (congestive) heart failure; I48.20 Chronic atrial fibrillation, unspecified | CPT/HCPCS: 36415; 80048; 85025 ==

== ENCOUNTER → 2024-01-06 09:30 | Outpatient (BNVA) | payer MEDICARE, MEDICAID, SELFPAY | PROVIDERS: PCP Internal Medicine; Visit Provider Thoracic Surgery (Cardiothoracic Vascular Surgery) | DX: E11.52 Type 2 diabetes mellitus with diabetic peripheral angiopathy with gangrene (principal); E11.622 Type 2 diabetes mellitus with other skin ulcer; L97.821 Non-pressure chronic ulcer of other part of left lower leg limited to breakdown of skin; L97.811 Non-pressure chronic ulcer of other part of right lower leg limited to breakdown of skin; I87.2 Venous insufficiency (chronic) (peripheral); E11.621 Type 2 diabetes mellitus with foot ulcer; L97.511 Non-pressure chronic ulcer of other part of right foot limited to breakdown of skin | CPT/HCPCS: 29581; 97597; 97598; A6210 ==

== ENCOUNTER 2024-01-11 05:52 | Oncology outpatient (recurring) (ONCR) | payer MEDICARE, MEDICAID, SELFPAY ==
--- NOTE | 2024-01-11 06:15 | USCV_ITS ---
Seema Del Rosario Age: 68 Gender: F : 1955 Exam Date: 01/11/2024 06:20 Ordering Phys: Reid Lopez MD ([email or web address]) Technologist: [place] [facility] [place]: cp sob BP: 180 / 90 HR: 78 Rhythm: Sinus Technical Quality: Adequate MEASUREMENTS (Male / Female) Normal Values 2D ECHO LV Diastolic Diameter PLAX 5.5 cm 4.2 - 5.9 / 3.9 - 5.3 cm IVS Diastolic Thickness 1.5 cm 0.6 - 1.0 / 0.6 - 0.9 cm IVS Systolic Thickness 2.0 cm LVPW Diastolic Thickness 1.6 cm 0.6 - 1.0 / 0.6 - 0.9 cm LVPW Systolic Thickness 1.7 cm LVOT Diameter 2.0 cm LV Ejection Fraction 2D Teich 67.6 % LV Ejection Fraction MOD 4C 66.7 % LV Ejection Fraction MOD 2C 73.4 % LV Ejection Fraction 2C AL 73.6 % LA Diameter 3.8 cm RA Systolic Volume 4C AL 83.3 ml RA Systolic Volume 4C MOD 81.0 ml Aorta at Sinotubular Diameter 3.1 cm IVC Diameter 2.3 cm M-MODE LA Ao Ratio MM 1.5 AV Cusp Separation MM 2.2 cm DOPPLER MV Peak Velocity 156.0 cm/s MV Area PHT 7.7 cm squared Mitral E to A Ratio 1.4 TV Peak Velocity 155.5 cm/s TR Peak Velocity 162.0 cm/s TR Peak Gradient 10.5 mmHg TV Peak E Velocity 75.0 cm/s PV Peak Velocity 140.0 cm/s FINDINGS Left Ventricle Normal left ventricular size, systolic function and wall thickness, with no regional wall motion abnormalities. Left ventricular ejection fraction is estimated at 60 %. Grade II/IV diastolic dysfunction, moderately elevated filling pressures. Right Ventricle The right ventricle is normal in size and function. RVSP could not be calculated due to incomplete tricuspid regurgitation velocity profile. Right Atrium The right atrium is normal in size. Left Atrium The left atrium is normal in size. Mitral Valve Moderately thickened mitral valve. Moderate mitral annular calcification. No mitral valve stenosis. Trace mitral valve regurgitation. Aortic Valve Moderate aortic valve calcification.no aortic valve stenosis. Trace aortic valve regurgitation. Tricuspid Valve Structurally normal tricuspid valve without significant stenosis or regurgitation. Pulmonic Valve Structurally normal pulmonic valve without significant stenosis. There is no pulmonic regurgitation. Pericardium Normal pericardium without effusion. Aorta Normal ascending aorta dimension. IVC The inferior vena cava appears normal. CONCLUSIONS Normal left ventricular size, systolic function and wall thickness, with no regional wall motion abnormalities. Left ventricular ejection fraction is estimated at 60 %. Grade II/IV diastolic dysfunction, moderately elevated filling pressures. Moderate aortic valve calcification.no aortic valve stenosis. Trace aortic valve regurgitation. There is no pericardial effusion. Right atrial pressure is around 5 mm of mercury. Reid Lopez MD (Electronically Signed) Final Date: 11 January 2024 11:40 S
[2024-01-11 08:09] LABS: Anion Gap 13.5 (5-19); Blood Urea Nitrogen 30 mg/dL (8-23); Calcium 8.8 mg/dL (8.5-10.5); Carbon Dioxide 25 mmol/L (22-29); Chloride 104 mmol/L (98-107); Glomerular Filtration Rate 44.7 mL/min (90-130); Glucose 177 mg/dL (65-115); Osmolality Calculated 297 mOsm/kg (285-295); Potassium 4.5 mmol/L (3.5-5.1); Sodium 138 mmol/L (136-145)
== END 2024-01-16 23:59 | disposition home or self-care (01) ==
LOC: RAD 07:24 → ONCMED 09:19
PROVIDERS: PCP Internal Medicine; Visit Provider Internal Medicine Cardiovascular Disease
DX: N18.31 Chronic kidney disease, stage 3a (principal); I50.32 Chronic diastolic (congestive) heart failure; I10 Essential (primary) hypertension; R06.02 Shortness of breath; I70.0 Atherosclerosis of aorta; I35.1 Nonrheumatic aortic (valve) insufficiency
CPT/HCPCS: 36415; 80048; 93306; 97597; 97598

== ENCOUNTER 2024-01-25 13:46 | Inpatient (IN) | payer MEDICARE, MEDICAID, SELFPAY ==
[2024-01-25] VITALS (30 sets, daily range): BP systolic 109–168; BP diastolic 57–112; PULSE 58–117; RESP 18; TEMP 36.7; O2SAT 90–95; BMI 45.1
--- NOTE | 2024-01-25 13:53 | ECG_ITS ---
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1955 Requested By: Godwin Morrow Order Number: [id number] Reading MD: BOB WORLEY Measurements Intervals [place] Rate: 57 P: 0 [place]: 0 QRS: -25 QRSD: 181 T: 234 QT: 411 QTc: 403 Interpretive Statements ATRIAL FLUTTER/TACHYCARDIA WITH SLOW VENTRICULAR RESPONSE RIGHT BUNDLE BRANCH BLOCK [120+ ms QRS DURATION, UPRIGHT V1, 40+ ms S IN I/aVL/V4/V5/V6] SEPTAL MYOCARDIAL INFARCTION , PROBABLY OLD [40+ ms Q WAVE IN V1/V2] MODERATE T-WAVE ABNORMALITY, CONSIDER INFERIOR ISCHEMIA [-0.1+ mV T-WAVE IN II/aVF] Compared to ECG 02/13/2023 05:10:34 T-wave abnormality now present Possible ischemia now present Electronically Signed On 01-25-2024 16:06:57 RETREADER by BOB WORLEY [id number]
--- NOTE | 2024-01-25 14:00 | XR_ITS ---
WS: [id number] Exam: XR chest 1V portable [id number] Date/Time of Exam: 01/25/2024 2:02 PM Reason For Exam: dyspnea/cough Comparison 02/13/2023. Consolidated right perihilar density may represent pneumonia or a mass. This is a change from the james or study. Remaining lung colin are clear. Cardiomediastinal silhouette is unremarkable. Surgical cli ps along the LEFT lower chest and LEFT axilla. The mediastinum is normal in contour. Bony structures are intact. XR/XR chest 1V portable [id number] IMPRESSION: 1. Consolidated RIGHT perihilar density that is suspicious for a mass. This cou ld also represent consolidated pneumonia. Imaging follow-up until resolution re commended. Ultimately, contrast CT of the chest may be necessary for further wo rk-up. 2. No acute infiltrates or other significant finding.
--- NOTE | 2024-01-25 14:17 | ED_ITS ---
HPI - Weakness 2 General: Chief complaint: ER Hold Stated complaint: fall, weakness, a flutter Time Seen by Provider: 01/25/24 13:49 History of Present Illness: 68-year-old female who presents to the e mergency room with complaints of a fall. She states that she had been visiting her in the hospital she went home got very weak felt like her legs were giving out and she fell. Evidently she has been having this intermittently over the last couple of months. She did not strike her head she did not lose consciousness there is no vomiting. She denies any injuries. She denies any difference in the chest discomfort. Associated symptoms: Denies chills, dysuria or fever(s) Review of Systems 2 Const: Denies: fever(s) or chills Card: Reports: other (Mild chest pressure ongoing months) Resp: Denies: dyspnea GI: Denies: abdominal pain : Denies: dysuria, urinary frequency or urinary urgency Musc: Denies: neck pain or back pain Skin/Breast: Denies: rash PFSH ED 2 PFSH: Medical History CKD (chronic kidney disease) Atherosclerosis of coronary artery of [place] heart without angina pectoris Peripheral arterial disease Lower extremity edema Leg pain Chronic venous insufficiency Chronic obstructive pulmonary disease Atrial fibrillation, chronic Diastolic heart failure Anemia Screen for colon cancer History of breast cancer Diabetes Hypertension Surgical History History of esophagogastroduodenoscopy (EGD) (~08/2019) [facility] [place]. History of colonoscopy with polypectomy (~08/2019) [facility]. History of carpal tunnel release of both wrists History of coronary angioplasty with insertion of stent History of coronary artery balloon dilation History of lumpectomy Family History Father CAD (coronary artery disease), Onset Age: 50 Cancer Diabetes Hyperlipidemia Hypertension Lung disease Denies family history of Clotting disorder Dementia Psychiatric illness Chronic kidney disease (CKD) Suicide Anesthesia complication Bleeding disorder Stroke Social History Smoking and tobacco/nicotine status: former use of tobacco/nicotine Quit status (tobacco/nicotine): has quit using Year quit tobacco: 2016 - 2PPD x 40 Years Alcohol intake: never Substance/Drug Use: never Lives independently: Yes Household members: spouse Marital status: Current occupational status: retired Do you think of yourself as: Straight/Heterosexual Current gender identity: Female Physical Exam 2 Const: COMMON NORMALS: no acute distress GENERAL APPEARANCE: cooperative and comfortable ORIENTATION/CONSCIOUSNESS: Yes awake, Yes oriented to person, Yes oriented to place and Yes oriented to time HENMT: COMMON NORMALS: normocephalic, atraumatic and hearing grossly normal bilaterally HEAD & SCALP: normocephalic and atraumatic Resp: COMMON NORMALS: normal respiratory effort, No retractions, No use of accessory muscles and clear to auscultation bilaterally AUSCULTATION: clear to auscultation bilaterally Cardio: COMMON NORMALS: regular rate, regular rhythm and No murmurs present (Cardio) RATE: regular rate RHYTHM: regular rhythm GI: COMMON NORMALS: Soft to palpation and No hepatosplenomegaly present A USCULTATION: Yes normoactive bowel sounds PALPATION: Yes Soft to palpation, No Tenderness to palpation present (GI), No Guarding due to palpation present (GI) and Yes No hepatosplenomegaly present Extremity: COMMON NORMALS: normal to inspection, capillary refill normal, no clubbing, cyanosis or edema, no calf tenderness and no pedal edema Neuro: SENSORIUM/ORIENTATION: Yes oriented to person, Yes oriented to place and Yes oriented to time Skin: COMMON NORMALS: no rashes or lesions noted GENERAL SKIN EXAM: no rashes or lesions noted Course 2 Vital Signs: Vital signs: Vital Signs Temperature 98.1 F 01/25/24 13:48 Pulse Rate 108 H 01/26/24 06:30 Respiratory Rate 15 01/26/24 06:30 Blood Pressure 190/98 01/26/24 06:30 Pulse Oximetry 93 01/26/24 06:30 Oxygen Delivery Me thod Room Air 01/26/24 03:30 MDM - Weakness Lab Data 01/26/24 03:26 01/26/24 03:26 Radiology Impressions Chest X-Ray 01/25/24 14:00 IMPRESSION: 1. Consolidated RIGHT perihilar density that is suspicious for a mass. This could also represent consolidated pneumonia. Imaging follow-up until resolution recommended. Ultimately, contrast CT of the chest may be necessary for further work-up. 2. No acute infiltrates or other significant finding. Chest CTA 01/25/24 14:45 IMPRESSION: 1. Dense irregular consolidation centered at the RIGHT hilum extending into the RIGHT upper lobe measures 5.2 x 3.2 cm. Additional more peripheral RIGHT upper lobe scattered opacifications. Differential includes neoplasm versus pneumonia. There is partial encasement with narrowing of the RIGHT upper lobe proximal bronchus. 2. Enlarged RIGHT hilar lymph node, 13 mm. 3. Patient has a known RIGHT adrenal mass now measuring 5.0 x 3.9 cm which is increased in size. This may be a metastatic site. RIGHT adrenal mass has been present since 2017 but has increased in size. Collision tumor is not excluded. 4. LEFT adenomyelolipoma. 5. Postsurgical changes LEFT breast from prior partial lumpectomy and posttreatment skin thickening. 6. No pulmonary embolism. Laboratory Results WBC 15.91 10^3/uL (3.29-11.43) H 01/25/24 13:21 RBC 3.89 10^6/uL (3.85-5.65) 01/25/24 13:21 Hgb 10.90 g/dL (11.27-16.99) L 01/25/24 13:21 Hct 34.9 % (36-47) L 01/25/24 13:21 MCV 89.7 fl (85-98) 01/25/24 13:21 MCH 28.0 pg (27-33) 01/25/24 13:21 MCHC 31.2 g/dL (30-55) 01/25/24 13:21 RDW 15.6 % (12.1-15.1) H 01/25/24 13:21 Plt Count 301 10^3/cmm (157-399) 01/25/24 13:21 MPV 10.5 fL (7.4-10.4) H 01/25/24 13:21 Neut % (Auto) 78.5 % 01/25/24 13:21 Lymph % (Auto) 13.1 % 01/25/24 13:21 Hand % (Auto) 6.2 % 01/25/24 13:21 Eos % (Auto) 1.2 % 01/25/24 13:21 Baso % (Auto) 0.4 % 01/25/24 13:21 Neut # (Auto) 12.48 10^3/uL (1.8-7.7) H 01/25/24 13:21 Lymph # (Auto) 2.1 10^3/uL (0.8-4.8) 01/25/24 13:21 Hand # (Auto) 1.0 10^3/uL (0.2-0.9) H 01/25/24 13:21 Eos # (Auto) 0.2 10^3/uL (0.0-0.8) 01/25/24 13:21 Baso # (Auto) 0.1 10^3/uL (0.0-0.1) 01/25/24 13:21 Nucleated RBC % (auto) 0 % 01/25/24 13:21 Nucleated RBCs # 0.0 /100WBC 01/25/24 13:21 Sodium 137 mmol/L (136-145) 01/25/24 15:29 Potassium 4.2 mmol/L (3.5-5.1) 01/25/24 15:29 Chloride 101 mmol/L (98-107) 01/25/24 15:29 Carbon Dioxide 23 mmol/L (22-29) 01/25/24 15:29 Anion Gap 17.2 (5-19) 01/25/24 15:29 BUN 30 mg/dL (8-23) H 01/25/24 15:29 Creatinine 1.9 mg/dL (0.5-0.9) H 01/25/24 15:29 GFR Calculation 26.3 mL/min (90-130) L 01/25/24 15:29 Glucose 96 mg/dL (65-115) 01/25/24 15:29 Calculated Osmolality 290 mOsm/kg (285-295) 01/25/24 15:29 Lactic Acid 1.3 mmol/L (0.5-2.2) 01/25/24 17:05 Calcium 9.5 mg/dL (8.5-10.5) 01/25/24 15:29 Total Bilirubin 0.2 mg/dL (0.15-1.2) 01/25/24 15:29 AST 11 U/L (0-32) 01/25/24 15:29 ALT 13 U/L (0-33) 01/25/24 15:29 Alkaline Phosphatase 106 U/L (35-105) H 01/25/24 15:29 Troponin T Baseline 37 ng/L (0-10) H 01/25/24 13:21 Troponin T 120 Minute 32.81 ng/L (0-10) H 01/25/24 15:29 Delta Troponin T -4.19 ABS# (0-10) L 01/25/24 15:29 Total Protein 6.9 g/dL (6.6-8.7) 01/25/24 15:29 Albumin 3.4 g/dL (3.5-5.2) L 01/25/24 15:29 Globulin 3.5 g/dL (1.3-4.6) 01/25/24 15:29 Urine Color Yellow (Yellow) 01/25/24 14:45 Urine Appearance Turbid (CLEAR) A 01/25/24 14:45 Urine pH 5.0 (5-7) 01/25/24 14:45 Ur Specific [place] 1.027 (1.005-1.030) 01/25/24 14:45 Urine Protein 3+ (Negative) A 01/25/24 14:45 Urine Glucose (UA) 3+ (Normal) H 01/25/24 14:45 Urine Ketones Negative (Negative) 01/25/24 14:45 Urine Blood Negative (Negative) 01/25/24 14:45 Urine Nitrate Negative (Negative) 01/25/24 14:45 Urine Bilirubin Negative (Negative) 01/25/24 14:45 Urine Urobilinogen 1.0 mg/dL (Negative) 01/25/24 14:45 Ur Leukocyte Esterase 1+ (Negative) A 01/25/24 14:45 Urine RBC 3-5 /hpf (0-2) 01/25/24 14:45 Urine WBC 25-40 /hpf (0-5) H 01/25/24 14:45 Ur Squamous Epith Cells 11-20 /hpf (0-5) 01/25/24 14:45 Amorphous Sediment Not Reportable 01/25/24 14:45 Urine Bacteria 2+ /hpf (NONE) H 01/25/24 14:45 Fine Granular Casts 0-4 /lpf H 01/25/24 14:45 Coronavirus (PCR) Negative (Negative) 01/25/24 15:15 Influenza A (PCR) Negative (Negative) 01/25/24 15:15 Influenza Type B (PCR) Negative (Negative) 01/25/24 15:15 RSV (PCR) Negative (Negative) 01/25/24 15:15 Discharge Plan Discharge Admit Provider: Reid Castro Condition: Stable Coding Level of Care Code ED Tire Spotter for Chg Fwd Related Data Home Medications Medication Instructions Recorded Confirmed allopurinol 100 mg tablet 100 mg PO DAILY@0700 04/25/19 01/25/24 gabapentin 300 mg capsule 300 mg PO TID@07,,04/25/19 01/25/24 isosorbide mononitrate 60 mg 120 mg PO DAILY@0700 04/25/19 01/25/24 tablet,extended release 24 hr polyethylene glycol 3350 17 17 g PO DAILY PRN Constipation 04/25/19 01/25/24 gram/dose oral powder insulin degludec 100 unit/mL (3 42 unit SUBCUT BID 09/06/20 01/25/24 mL) subcutaneous pen (Tresiba FlexTouch U-100 insulin) insulin lispro 100 unit/mL 30 unit SUBCUT TID 07/30/21 01/25/24 subcutaneous pen (Humalog KwikPen (U-100) Insulin) tramadol 50 mg tablet 50 mg PO BID PRN Pain 09/02/22 01/25/24 pantoprazole 40 mg tablet,delayed 40 mg PO QAM 10/15/22 01/25/24 release aspirin 81 mg tablet,delayed 81 mg PO DAILY 06/15/23 01/25/24 release clonidine HCl 0.3 mg tablet 0.3 mg PO TID 06/15/23 01/25/24 rosuvastatin 20 mg tablet 20 mg PO BEDTIME 06/15/23 01/25/24 ferrous sulfate 325 mg (65 mg 325 mg PO BID 12/23/23 01/25/24 iron) tablet latanoprost 0.005 % eye drops 1 drp ophthalmic (eye) DAILY 12/23/23 01/25/24 letrozole 2.5 mg tablet 2.5 mg PO DAILY 12/23/23 01/25/24 ondansetron HCl 4 mg tablet 4 mg PO .q 4 hr PRN Nausea And 12/23/23 01/25/24 Vomiting prochlorperazine maleate 10 mg 10 mg PO Q8H PRN Nausea And 12/23/23 01/25/24 tablet Vomiting amlodipine 5 mg tablet 5 mg PO DAILY 01/25/24 01/25/24 diltiazem HCl 60 mg tablet 60 mg PO BID 01/25/24 01/25/24 duloxetine 60 mg capsule,delayed 60 mg PO DAILY 01/25/24 01/25/24 release nystatin 100,000 unit/gram topical 1 applic topical BID 01/25/24 01/25/24 powder (Klayesta) Previous Rx's Medication Instructions Recorded Security Analyst brace #1 ea 08/18/22 apixaban 5 mg tablet (Eliquis) 5 mg PO BID #180 tabs 01/22/23 clopidogrel 75 mg tablet 75 mg PO DAILY #90 tabs 01/22/23 hydrocodone 5 mg-acetaminophen 325 1 tab PO Q8H PRN pain #14 tabs 06/03/23 mg tablet losartan 25 mg tablet 25 mg PO DAILY #90 tabs 12/23/23 metoprolol tartrate 50 mg tablet 50 mg PO BID #180 tabs 12/23/23 Allergies Allergy/AdvReac Type Severity Reaction Status Date / Time dapagliflozin [[facility] Allergy Intermediate ADR-Itching Verified 12/23/23 16:11 empagliflozin Allergy Intermediate ADR-Itching Verified 12/23/23 16:11 [From [facility]] anastrozole Allergy ALGY-Joint Verified 12/23/23 16:10 Pain
[2024-01-25 14:34] LABS: Basophils # 0.1 10^3/uL (0.0-0.1); Basophils % 0.4 %; Eosinophils # 0.2 10^3/uL (0.0-0.8); Eosinophils % 1.2 %; Hematocrit 34.9 % (36-47); Lymphocytes # 2.1 10^3/uL (0.8-4.8); Lymphocytes % 13.1 %; Mean Corpuscular HGB Conc 31.2 g/dL (30-55); Mean Corpuscular Volume 89.7 fl (85-98); Mean Platelet Volume 10.5 fL (7.4-10.4); Monocytes % 6.2 %; Neutrophils # 12.48 10^3/uL (1.8-7.7); Neutrophils % 78.5 %; Nucleated Red Blood Cells % 0 %; Platelet Count 301 10^3/cmm (157-399); Red Blood Count 3.89 10^6/uL (3.85-5.65); Red Cell Distribution Width 15.6 % (12.1-15.1); White Blood Count 15.91 10^3/uL (3.29-11.43)
--- NOTE | 2024-01-25 14:45 | CT_ITS ---
WS: [id number] CT CHEST ANGIOGRAPHY WITH REFORMATS HISTORY: Dyspnea on exertion right hilar mass TECHNIQUE: Contiguous axial images are obtained through the chest during arterial injection of intrav enous contrast. Images are reconstructed to evaluate the pulmonary arteries. MIP imaging also reviewe d. All CT scans at [facility] use at least one of these dose optimization techniques: automat ed exposure control; mA and/or kV adjustment per patient size (includes targeted exams where dose is matched to clinical indication); or iterative reconstruction. CONTRAST: Omnipaque 350; 100 mL IV. DLP: 549.10 mGy.cm COMPARISON: 05/03/2021 CT Good opacification of the pulmonary arteries. No filling defects or pulmonary emboli. Mild atheroscle rosis aorta. No aneurysm. Irregular consolidation centered at the RIGHT hilum encasing the RIGHT upper lobe bronchovascular str uctures. Irregular shaped mass measures at least 5.2 x 3.2 cm. There are additional peripheral opacif ications in the RIGHT upper lobe. RIGHT hilar lymph nodes measuring up to 13 mm. Smaller subcarinal l ymph node. Small paratracheal lymph nodes. No definite axillary adenopathy. Postsurgical changes LEFT breast. Numerous sutures are identified against the chest wall. Patient has a known prior breast cancer history. Mild LEFT heart enlargement. No pericardial or pleural effusions. Mild tricuspid regurgitation into t he hepatic veins. Patient has a known RIGHT renal mass. This mass measures 5.0 x 3.9 cm and is increased in size since 05/03/2021. Fat-containing mass in the LEFT adrenal gland is probably a myelolipoma measuring 1.9 x 2. 1 cm. Atherosclerotic plaque in the suprarenal aorta and proximal renal arteries. Increase in thoracic kyphosis. No destructive bone lesions. CT/CT angio chest PE protcl [id number] IMPRESSION: 1. Dense irregular consolidation centered at the RIGHT hilum extending into th e RIGHT upper lobe measures 5.2 x 3.2 cm. Additional more peripheral RIGHT uppe r lobe scattered opacifications. Differential includes neoplasm versus pneumoni a. There is partial encasement with narrowing of the RIGHT upper lobe proximal bronchus. 2. Enlarged RIGHT hilar lymph node, 13 mm. 3. Patient has a known RIGHT adrenal mass now measuring 5.0 x 3.9 cm which is increased in size. This may be a metastatic site. RIGHT adrenal mass has been p resent since 2017 but has increased in size. Collision tumor is not excluded. 4. LEFT adenomyelolipoma. 5. Postsurgical changes LEFT breast from prior partial lumpectomy and posttrea tment skin thickening. 6. No pulmonary embolism.
[2024-01-25 14:52] LABS: Troponin(5th) Baseline 37 ng/L (0-10)
[2024-01-25 15:04] LABS: Bilirubin Urine Negative (Negative); Blood Urine Negative (Negative); Glucose Urine UA 3+ (Normal); Ketones Urine Negative (Negative); Leukocyte Esterase Urine 1+ (Negative); Nitrate Urine Negative (Negative); Protein Urine 3+ (Negative); Specific Gravity, Urine 1.027 (1.005-1.030); Urine Appearance Turbid (CLEAR); Urine Color Yellow (Yellow)
[2024-01-25 15:32] LABS: Add Urine Microscopic? YES; Bacteria Urine 2+ /hpf; UA Manual Slide Review YES; WBC Urine 25-40 /hpf (0-5)
[2024-01-25 15:33] LABS: Fine Granular Casts Urine 0-4 /lpf
[2024-01-25] MEDS: iohexol 350 mg/mL 500 mL Btl (per mL) IV (15:44)
[2024-01-25 15:57] LABS: Alanine Aminotransferase 13 U/L (0-33); Albumin Level 3.4 g/dL (3.5-5.2); Alkaline Phosphatase 106 U/L (35-105); Anion Gap 17.2 (5-19); Aspartate Amino Transferase 11 U/L (0-32); Blood Urea Nitrogen 30 mg/dL (8-23); Calcium 9.5 mg/dL (8.5-10.5); Carbon Dioxide 23 mmol/L (22-29); Chloride 101 mmol/L (98-107); Creatinine Clr Calc Pharmacy 38.6448; Globulin 3.5 g/dL (1.3-4.6); Glomerular Filtration Rate 26.3 mL/min (90-130); Glucose 96 mg/dL (65-115); Osmolality Calculated 290 mOsm/kg (285-295); Potassium 4.2 mmol/L (3.5-5.1); Sodium 137 mmol/L (136-145); Total Bilirubin 0.2 mg/dL (0.15-1.2); Total Protein 6.9 g/dL (6.6-8.7)
--- NOTE | 2024-01-25 16:00 | ECG_ITS ---
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1955 Requested By: Godwin Morrow Order Number: [id number] Reading MD: BOB WORLEY Measurements Intervals [place] Rate: 104 P: -23 NH: 273 QRS: -42 QRSD: 174 T: 40 QT: 391 QTc: 516 Interpretive Statements SINUS TACHYCARDIA WITH FIRST DEGREE AV BLOCK POSSIBLE LEFT ATRIAL ENLARGEMENT [-0.1mV P-WAVE IN V1/V2] LEFT AXIS DEVIATION [QRS AXIS < -30] RIGHT BUNDLE BRANCH BLOCK [120+ ms QRS DURATION, UPRIGHT V1, 40+ ms S IN I/aVL/V4/V5/V6] SEPTAL MYOCARDIAL INFARCTION , OF INDETERMINATE AGE [40+ ms Q WAVE IN V1/V2] Compared to ECG 01/25/2024 13:53:47 First degree AV block now present Left-axis deviation now present Atrial flutter no longer present Electronically Signed On 01-25-2024 16:13:40 CANVAS CUTTER HAND by BOB WORLEY [email or web address]
[2024-01-25 16:12] LABS: Troponin 5 2HR 32.81 ng/L (0-10)
[2024-01-25 16:14] LABS: Troponin 5 2HR Delta -4.19 ABS# (0-10)
[2024-01-25] MEDS: cefTRIAXone 1,000 mg SDV 1000 MG IVP (17:22)
[2024-01-25 17:44] LABS: Lactic Sepsis W/Reflex 1.3 mmol/L (0.5-2.2)
[2024-01-25] MEDS: AZITHROMYCIN ADD-Vantage 500 MG in 0.9% NaCl ADD-Vantage 250 ML 250 MG IV (17:48)
[2024-01-25 18:13] LABS: Covid PCR NEGATIVE (Negative); Influenza A NEGATIVE (Negative); Influenza B NEGATIVE (Negative); Respiratory Syncytial Virus Ce NEGATIVE (Negative)
--- NOTE | 2024-01-25 19:03 | P.HP_ITS ---
Providers/Chief Complaint 2 Admitting Physician: Reid Castro MD Primary Care Provider: Jeanine Solares MD Chief Complaint: fall, weakness, a flutter History of Present Illness Seema Del Rosario is a 68 year old female with history of breast cancer with mets, stage IV, follows up with Dr. Wise, chemotherapy on hold secondary to cardiotoxic effects, patient has seen demographer Dr. Contreras for atrial flutter as well she has been on aspirin, Plavix and Eliquis since 2022 no GI bleed, presenting today for generalized weakness, fatigue, lethargy. Patient's is already admitted in the hospital for management of pneumonia, patient is stating that she has not noticed any fever nausea vomiting diarrhea but endorsing productive cough, white sputum production extremely fatigued and lethargic to the point that she is not able to do anything at home. She tries to hydrate herself but still extremely dehydrated. In the ER she has significant leukocytosis around 15,000, she is not febrile, not showing sign of sepsis, dehydration, DANYA, CT chest was done which showed. 1. Dense irregular consolidation centered at the RIGHT hilum extending into the RIGHT upper lobe measures 5.2 x 3.2 cm. Additional more peripheral RIGHT upper lobe scattered opacifications. Differential includes neoplasm versus pneumonia. There is partial encasement with narrowing of the RIGHT upper lobe proximal bronchus. 2. Enlarged RIGHT hilar lymph node, 13 mm. 3. Patient has a known RIGHT adrenal mass now measuring 5.0 x 3.9 cm which is increased in size. This may be a metastatic site. RIGHT adrenal mass has been present since 2017 but has increased in size. Collision tumor is not excluded. 4. LEFT adenomyelolipoma. 5. Postsurgical changes LEFT breast from prior partial lumpectomy and posttreatment skin thickening. 6. No pulmonary embolism. At the time of my evaluation she is not complaining active chest pain, she is currently on room air She is in atrial flutters/RVR around 120s Review of Systems 2 Const: Reports: chills Eyes: Denies: change in vision ENMT: Denies: throat pain Card: Reports: dyspnea on exertion Resp: Reports: dyspnea and productive cough GI: Reports: nausea Medications/Allergies Home Medications Medication Instructions Recorded Confirmed Last Taken Type allopurinol 100 mg tablet 100 mg PO DAILY@0700 04/25/19 01/25/24 01/25/24 History gabapentin 300 mg capsule 300 mg PO TID@,04/25/19 01/25/24 01/25/24 History isosorbide mononitrate 60 mg 120 mg PO DAILY@0700 04/25/19 01/25/24 01/25/24 History tablet,extended release 24 hr polyethylene glycol 3350 17 17 g PO DAILY PRN Constipation 04/25/19 01/25/24 2 Months Ago History gram/dose oral powder ~04/18/23 insulin degludec 100 unit/mL (3 42 unit SUBCUT BID 09/06/20 01/25/24 01/24/24 History mL) subcutaneous pen (Tresiba FlexTouch U-100 insulin) insulin lispro 100 unit/mL 30 unit SUBCUT TID 07/30/21 01/25/24 01/25/24 History subcutaneous pen (Humalog KwikPen (U-100) Insulin) [employer] brace #1 ea 08/18/22 01/25/24 11/13/22 05:00 Rx tramadol 50 mg tablet 50 mg PO BID PRN Pain 09/02/22 01/25/24 06/18/23 06:30 History pantoprazole 40 mg tablet,delayed 40 mg PO QAM 10/15/22 01/25/24 01/25/24 History release apixaban 5 mg tablet (Eliquis) 5 mg PO BID #180 tabs 01/22/23 01/25/24 01/25/24 Rx clopidogrel 75 mg tablet 75 mg PO DAILY #90 tabs 01/22/23 01/25/24 01/25/24 Rx hydrocodone 5 mg-acetaminophen 325 1 tab PO Q8H PRN pain #14 tabs 06/03/23 01/25/24 06/18/23 06:30 Rx mg tablet aspirin 81 mg tablet,delayed 81 mg PO DAILY 06/15/23 01/25/24 01/25/24 History release clonidine HCl 0.3 mg tablet 0.3 mg PO TID 06/15/23 01/25/24 01/25/24 History rosuvastatin 20 mg tablet 20 mg PO BEDTIME 06/15/23 01/25/24 01/24/24 History ferrous sulfate 325 mg (65 mg 325 mg PO BID 12/23/23 01/25/24 01/25/24 History iron) tablet latanoprost 0.005 % eye drops 1 drp ophthalmic (eye) DAILY 12/23/23 01/25/24 01/25/24 History letrozole 2.5 mg tablet 2.5 mg PO DAILY 12/23/23 01/25/24 01/25/24 History losartan 25 mg tablet 25 mg PO DAILY #90 tabs 12/23/23 01/25/24 01/25/24 Rx metoprolol tartrate 50 mg tablet 50 mg PO BID #180 tabs 12/23/23 01/25/24 01/25/24 Rx ondansetron HCl 4 mg tablet 4 mg PO .q 4 hr PRN Nausea And 12/23/23 01/25/24 01/25/24 History Vomiting prochlorperazine maleate 10 mg 10 mg PO Q8H PRN Nausea And 12/23/23 01/25/24 Unknown History tablet Vomiting amlodipine 5 mg tablet 5 mg PO DAILY 01/25/24 01/25/24 01/25/24 History diltiazem HCl 60 mg tablet 60 mg PO BID 01/25/24 01/25/24 01/25/24 History duloxetine 60 mg capsule,delayed 60 mg PO DAILY 01/25/24 01/25/24 01/25/24 History release nystatin 100,000 unit/gram topical 1 applic topical BID 01/25/24 01/25/24 01/24/24 History powder (Klayesta) Allergies Allergy/AdvReac Type Severity Reaction Status Date / Time dapagliflozin [From [facility]] Allergy Intermediate ADR-Itching Verified 12/23/23 16:11 empagliflozin Allergy Intermediate ADR-Itching Verified 12/23/23 16:11 [From [facility]] anastrozole Allergy ALGY-Joint Verified 12/23/23 16:10 Pain PFSH Acute 2 PFSH: Medical History CKD (chronic kidney disease) Atherosclerosis of coronary artery of [place] heart without angina pectoris Peripheral arterial disease Lower extremity edema Leg pain Chronic venous insufficiency Chronic obstructive pulmonary disease Atrial fibrillation, chronic Diastolic heart failure Anemia Screen for colon cancer History of breast cancer Diabetes Hypertension Surgical History History of esophagogastroduodenoscopy (EGD) (~08/2019) dr. zacarias [facility] [place]. History of colonoscopy with polypectomy (~08/2019) dr. zacarias [facility] [place]. History of carpal tunnel release of both wrists History of coronary angioplasty with insertion of stent History of coronary artery balloon dilation History of lumpectomy Family History Father CAD (coronary artery disease), Onset Age: 50 Cancer Diabetes Hyperlipidemia Hypertension Lung disease Denies family history of Clotting disorder Dementia Psychiatric illness Chronic kidney disease (CKD) Suicide Anesthesia complication Bleeding disorder Stroke Social History Smoking and tobacco/nicotine status: former use of tobacco/nicotine Quit status (tobacco/nicotine): has quit using Year quit tobacco: 2016 - 2PPD x 40 Years Alcohol intake: never Substance/Drug Use: never Lives independently: Yes Household members: spouse Marital status: Current occupational status: retired Do you think of yourself as: Straight/Heterosexual Current gender identity: Female Vitals/I&O/Wt Last Vital Signs Temp 98.1 F 01/25/24 13:48 Pulse 77 01/25/24 14:51 Resp 18 01/25/24 13:48 BP 134/80 01/25/24 18:02 Pulse Ox 93 01/25/24 17:33 O2 Del Method Room Air 01/25/24 17:33 Weight last 48 hrs Weight 127.006 kg Physical Exam 2 Narrative: female Morbid obese No active chest pain or shortness of breath Currently on room air A-fib RVR Normotensive Lethargic and fatigued Dehydrated No extremity nonpitting edema Distended nontender abdomen No audible stridor or wheezing Data 01/25/24 13:21 01/25/24 15:29 Micro: Microbiology 01/25/24 17:10 Blood Culture - Preliminary Blood SPECIMEN COLLECTED 01/25/24 17:05 Blood Culture - Preliminary Blood SPECIMEN COLLECTED A&P Assessment and plan (1) Hypertension: Qualifiers: Hypertension type: primary hypertension Qualified Code(s): I10 - Essential (primary) hypertension (2) Diastolic heart failure: Qualifiers: Heart failure chronicity: chronic Qualified Code(s): I50.32 - Chronic diastolic (congestive) heart failure (3) Peripheral arterial disease: (4) Chronic venous insufficiency: (5) Atrial fibrillation, chronic: (6) Diabetes: (7) CKD (chronic kidney disease): Qualifiers: Chronic kidney disease stage: stage 3 (moderate) Chronic kidney disease stage 3 subtype: stage 3a (GFR 45-59) Qualified Code(s): N18.31 - Chronic kidney disease, stage 3a (8) Malignant neoplasm of lower-outer quadrant of left female breast: Qualifiers: Estrogen receptor status: unspecified Qualified Code(s): C50.512 - Malignant neoplasm of lower-outer quadrant of left female breast (9) Anemia: (10) Chronic obstructive pulmonary disease: Qualifiers: COPD type: unspecified COPD Qualified Code(s): J44.9 - Chronic obstructive pulmonary disease, unspecified (11) Obstructive sleep apnea: (12) Lower extremity edema: Plan Community-acquired pneumonia in immunocompromised female Breast cancer with metastatic lesion Complaining of lethargy and fatigue Significant leukocytosis without fever no sign of sepsis A-fib RVR I will start patient on ceftriaxone and doxycycline Request urine culture Start IV fluids and discontinue after 12 hours Patient clinically is extremely dehydrated Trial of fluids to see if heart would improve Continue Eliquis along Plavix, Follows up with Dr. Wise Diastolic CHF without acute exacerbation COPD without acute exacerbation currently doing well on room air No signs of PE Recent echo was done which showed EF of 60% grade 2 diastolic dysfunction Full code Consistent carb diet with sliding scale Attestations 2 Medical Necessity Statement*: Anticipating discharge within 48 hours Coding Level of Care Code 38393 Diagnoses Primary hypertension I10 Hypertension type: primary hypertension Chronic diastolic heart failure I50.32 Heart failure chronicity: chronic Peripheral arterial disease I73.9 Chronic venous insufficiency I87.2 Atrial fibrillation, chronic I48.20 Diabetes E11.9 Stage 3a chronic kidney disease N18.31 Chronic kidney disease stage: stage 3 (moderate) Chronic kidney disease stage 3 subtype: stage 3a (GFR 45-59) Malignant neoplasm of lower-outer quadrant of left female breast, unspecified estrogen receptor status C50.512 Estrogen receptor status: unspecified Anemia D64.9 Chronic obstructive pulmonary disease, unspecified COPD type J44.9 COPD type: unspecified COPD Obstructive sleep apnea G47.33 Lower extremity edema R60.0
--- NOTE | 2024-01-25 20:00 | ECG_ITS ---
[facility] Test Date: 2024-01-25 Pat Name: Seema Del Rosario Department: Room: EDIP Gender: Female Event Set Up Specialist: : 1955 Requested By: Godwin Morrow Order Number: [id number] Jennie MD: Valentin Partida M.D. Measurements Intervals [place] Rate: 115 P: 0 KS: 0 QRS: -40 QRSD: 163 T: 11 QT: 373 QTc: 518 Interpretive Statements ATRIAL FLUTTER/TACHYCARDIA WITH RAPID VENTRICULAR RESPONSE LEFT AXIS DEVIATION [QRS AXIS < -30] RIGHT BUNDLE BRANCH BLOCK [120+ ms QRS DURATION, UPRIGHT V1, 40+ ms S IN I/aVL/V4/V5/V6] PROBABLE SEPTAL MYOCARDIAL INFARCTION , OF INDETERMINATE AGE [35 ms Q WAVE IN V1/V2] Compared to ECG 01/25/2024 15:50:28 Sinus tachycardia no longer present First degree AV block no longer present Myocardial infarct finding still present Electronically Signed On 01-27-2024 01:05:17 [employer]ARDER [employer]OSS by Valentin Partida M.D. [email or web address]
[2024-01-25 20:41] LABS: Troponin 5 6HR 27.87 ng/L (0-10)
[2024-01-25 20:43] LABS: Troponin 5 6HR Delta -9.13 ng/L (0-12)
[2024-01-25] MEDS: atorvastatin 40 mg Tablet 80 MG PO (21:37)
[2024-01-25] MEDS: sodium chloride 0.9% 1,000 ML 75 ML IV (21:39)
[2024-01-26] VITALS (35 sets, daily range): BP systolic 128–190; BP diastolic 71–118; PULSE 82–128; RESP 15–24; TEMP 36.8–37.2; O2SAT 91–96
[2024-01-26 03:35] LABS: Basophils # 0.1 10^3/uL (0.0-0.1); Basophils % 0.5 %; Eosinophils # 0.2 10^3/uL (0.0-0.8); Lymphocytes # 1.4 10^3/uL (0.8-4.8); Lymphocytes % 9.7 %; Mean Corpuscular HGB Conc 30.9 g/dL (30-55); Mean Corpuscular Volume 90.7 fl (85-98); Monocytes # 0.9 10^3/uL (0.2-0.9); Monocytes % 6.2 %; Neutrophils # 12.14 10^3/uL (1.8-7.7); Neutrophils % 82.2 %; Nucleated Red Blood Cells % 0 %; Platelet Count 234 10^3/cmm (157-399); Red Blood Count 3.75 10^6/uL (3.85-5.65); Red Cell Distribution Width 15.5 % (12.1-15.1); White Blood Count 14.76 10^3/uL (3.29-11.43)
[2024-01-26] MEDS: HYDROcodone-acetaminophen 5-325 mg Tablet 1 TAB PO ×2 (03:38→18:09)
[2024-01-26 03:56] LABS: Anion Gap 15.5 (5-19); Blood Urea Nitrogen 27 mg/dL (8-23); C Reactive Protein 70.8 mg/L (0.0-4.9); Calcium 9.1 mg/dL (8.5-10.5); Carbon Dioxide 21 mmol/L (22-29); Chloride 102 mmol/L (98-107); Creatinine Clr Calc Pharmacy 56.4808; Glomerular Filtration Rate 40.7 mL/min (90-130); Glucose 100 mg/dL (65-115); Osmolality Calculated 285 mOsm/kg (285-295); Potassium 3.5 mmol/L (3.5-5.1); Sodium 135 mmol/L (136-145)
[2024-01-26 04:02] LABS: Procalcitonin 0.08 ng/mL (0-0.5)
[2024-01-26] MEDS: isosorbide mononitrate ER 60 mg Tablet 120 MG PO (06:03)
[2024-01-26] MEDS: pantoprazole DR 40 mg Tablet PO (06:03)
[2024-01-26 07:39] LABS: Glucose Point of Care 122 mg/dL (70-110)
[2024-01-26] MEDS: gabapentin 300 mg Capsule PO ×3 (08:05→17:01)
[2024-01-26] MEDS: allopurinol 100 mg Tablet PO (08:05)
[2024-01-26 09:36] LABS: Glucose Point of Care 179 mg/dL (70-110)
[2024-01-26] MEDS: morphine 4 mg/mL SDV 1 mL 2 MG IVP (09:36)
--- NOTE | 2024-01-26 09:41 | P.PN_ITS ---
Subjective 2 Subjective: History and physical reviewed. Presents with pneumonia, weakness, history of stage IV breast cancer. Was placed on IV antibiotics consisting of Rocephin and azithromycin. Given IV fluids. Reports today she is still weak. No chest pain. Concerned her heart rate is high, and has known A-fib. Heart rates above 100. Medications: Reviewed: Yes Vitals/I&O/Wt Last Vital Signs Temp 98.1 F 01/25/24 13:48 Pulse 90 01/26/24 08:28 Resp 22 H 01/26/24 09:36 BP 190/98 01/26/24 06:30 Pulse Ox 95 01/26/24 08:28 O2 Del Method Room Air 01/26/24 08:28 01/25/24 01/26/24 01/26/24 22:59 06:59 14:59 Intake Total 510 / 510 Balance 510 / 510 Weight last 48 hrs Weight 127.006 kg Physical Exam 2 Narrative: General Exam no distress, does appear weak, currently when I evaluated her on 2 L of oxygen Cardiovascular irregular irregular with accelerated rate Lungs diminished breath sound at the bases Abdomen is soft nontender positive bowel sounds Extremities no cyanosis clubbing. 1+ edema bilaterally. Urinary Catheter Management: [place]: Cath Placed During This Visit: yes Reason for Continuing Indwelling Catheter: Assist Healing of Perineal & Sacral Wounds- Incontinent Patients Urinary Catheter Date of Insertion: 01/26/24 Urinary Catheter Time of Insertion: 05:08 Data 01/26/24 03:26 01/26/24 03:26 Micro: Microbiology 01/25/24 17:10 Blood Culture - Preliminary Blood SPECIMEN COLLECTED 01/25/24 17:05 Blood Culture - Preliminary Blood SPECIMEN COLLECTED A&P Assessment and plan (1) Pneumonia: Patient presents today with pneumonia, right side No PE but has a masslike quality and will need follow-up Change Rocephin and Zithromax to Levaquin as she has past history of Pseudomonas in some of her wounds Sputum culture Oxygen as needed (2) Atrial fibrillation, chronic: Echo in December demonstrated preserved EF, diastolic dysfunction Currently with A-fib with RVR Increase metoprolol to 100 mg twice daily Magnesium, TSH will be checked (3) Diabetes: Continue her long-acting insulin, sliding scale (4) Chronic obstructive pulmonary disease: Budesonide, DuoNeb Monitor for any exacerbation which is not present currently Qualifiers: COPD type: unspecified COPD Qualified Code(s): J44.9 - Chronic obstructive pulmonary disease, unspecified Plan Possible UTI, continue Levaquin. Ensure urine culture is done Weakness, encourage ambulation, monitor for improvement Metastatic cancer, history of breast cancer. Continue to follow-up with her oncologist Multiple other medical problems as outlined in past medical history Full code SCDs, Eliquis for DVT prophylaxis Attestations 2 Medical Necessity Statement*: Needs continued hospital stay for IV antibiotics related to pneumonia, adjustment of medications for A-fib with RVR Diagnoses Pneumonia J18.9 Atrial fibrillation, chronic I48.20 Diabetes E11.9 Chronic obstructive pulmonary disease, unspecified COPD type J44.9 COPD type: unspecified COPD Time Spent (min) 26
[2024-01-26] MEDS: dilTIAZem 60 mg Tablet PO ×2 (09:51→17:01)
[2024-01-26] MEDS: metoprolol tartrate 50 mg Tablet PO (09:52)
[2024-01-26] MEDS: apixaban 5 mg Tablet PO ×2 (09:54→17:01)
[2024-01-26] MEDS: duloxetine 60 mg Capsule PO (09:54)
[2024-01-26] MEDS: clopidogrel 75 mg Tablet PO (09:54)
[2024-01-26] MEDS: amlodipine 5 mg Tablet PO (09:55)
[2024-01-26] MEDS: levofloxacin-dextrose 5 % 750 MG/150 ML PREMIX 100 MG IV (09:56)
[2024-01-26] MEDS: insulin lispro 100 unit/1 mL SUBCUT ×3 (10:00→17:00)
[2024-01-26] MEDS: nystatin powder 15 gm Btl 1 APPLIC TOPICAL ×2 (10:52→17:04)
[2024-01-26] MEDS: insulin glargine 100 units/1 mL 28 UNIT SUBCUT ×2 (10:53→17:00)
[2024-01-26 11:35] LABS: Glucose Point of Care 282 mg/dL (70-110)
[2024-01-26 16:47] LABS: Glucose Point of Care 248 mg/dL (70-110)
[2024-01-26] MEDS: metoprolol tartrate 50 mg Tablet 100 MG PO (17:01)
[2024-01-26 20:34] LABS: Glucose Point of Care 220 mg/dL (70-110)
[2024-01-26] MEDS: cloNIDine 0.1 mg Tablet 0.3 MG PO (20:55)
[2024-01-26] MEDS: atorvastatin 40 mg Tablet 80 MG PO (20:57)
[2024-01-26] MEDS: TRAMadol 50 mg Tablet PO (20:57)
[2024-01-26] MEDS: budesonide 0.5 mg/2 mL Neb INHALATION (21:07)
--- NOTE | 2024-01-26 21:35 | PC.NURSE ---
L. Leg Wounds: Chronic wounds that the pt sees wound care for, where the orders are clean and change daily w/ pily mccarty. Dr. Castro notified @[phone]
[2024-01-27] VITALS (12 sets, daily range): BP systolic 123–155; BP diastolic 67–102; PULSE 84–124; RESP 17–20; TEMP 36.6–36.9; O2SAT 92–96
[2024-01-27] MEDS: pantoprazole DR 40 mg Tablet PO (05:56)
[2024-01-27] MEDS: isosorbide mononitrate ER 60 mg Tablet 120 MG PO (06:01)
[2024-01-27] MEDS: gabapentin 300 mg Capsule PO ×3 (06:01→18:04)
[2024-01-27] MEDS: allopurinol 100 mg Tablet PO (06:01)
[2024-01-27 06:04] LABS: Basophils # 0.1 10^3/uL (0.0-0.1); Basophils % 0.4 %; Eosinophils # 0.2 10^3/uL (0.0-0.8); Eosinophils % 1.3 %; Hematocrit 34.2 % (36-47); Lymphocytes # 1.5 10^3/uL (0.8-4.8); Lymphocytes % 12.7 %; Mean Corpuscular HGB Conc 30.4 g/dL (30-55); Mean Corpuscular Volume 92.2 fl (85-98); Mean Platelet Volume 10.3 fL (7.4-10.4); Monocytes # 0.9 10^3/uL (0.2-0.9); Monocytes % 7.1 %; Neutrophils # 9.35 10^3/uL (1.8-7.7); Neutrophils % 77.9 %; Nucleated Red Blood Cells % 0 %; Platelet Count 251 10^3/cmm (157-399); Red Blood Count 3.71 10^6/uL (3.85-5.65); Red Cell Distribution Width 15.6 % (12.1-15.1); White Blood Count 12.01 10^3/uL (3.29-11.43)
[2024-01-27 06:34] LABS: Alanine Aminotransferase 13 U/L (0-33); Alkaline Phosphatase 96 U/L (35-105); Aspartate Amino Transferase 15 U/L (0-32); Blood Urea Nitrogen 23 mg/dL (8-23); Calcium 8.8 mg/dL (8.5-10.5); Carbon Dioxide 23 mmol/L (22-29); Chloride 104 mmol/L (98-107); Creatinine Clr Calc Pharmacy 60.6348; Globulin 3.3 g/dL (1.3-4.6); Glomerular Filtration Rate 44.7 mL/min (90-130); Glucose 195 mg/dL (65-115); Magnesium 1.9 mg/dL (1.7-2.3); Osmolality Calculated 295 mOsm/kg (285-295); Sodium 138 mmol/L (136-145); Total Bilirubin 0.4 mg/dL (0.15-1.2); Total Protein 6.3 g/dL (6.6-8.7)
[2024-01-27 06:35] LABS: Glucose Point of Care 189 mg/dL (70-110)
[2024-01-27 06:38] LABS: Anion Gap 14.5 (5-19); Potassium 3.5 mmol/L (3.5-5.1)
[2024-01-27] MEDS: cloNIDine 0.1 mg Tablet 0.3 MG PO ×3 (08:37→22:13)
[2024-01-27] MEDS: clopidogrel 75 mg Tablet PO (08:38)
[2024-01-27] MEDS: metoprolol tartrate 50 mg Tablet 100 MG PO ×2 (08:38→18:01)
[2024-01-27] MEDS: aspirin 81 mg EC Tablet PO (08:38)
[2024-01-27] MEDS: insulin lispro 100 unit/1 mL SUBCUT ×3 (08:38→18:01)
[2024-01-27] MEDS: apixaban 5 mg Tablet PO (08:38)
[2024-01-27] MEDS: dilTIAZem ER (24HR) 180 mg Capsule PO (08:38)
[2024-01-27] MEDS: duloxetine 60 mg Capsule PO (08:38)
[2024-01-27] MEDS: levofloxacin-dextrose 5 % 750 MG/150 ML PREMIX 100 MG IV (08:42)
[2024-01-27] MEDS: nystatin powder 15 gm Btl 1 APPLIC TOPICAL ×2 (08:42→18:02)
[2024-01-27] MEDS: insulin glargine 100 units/1 mL 28 UNIT SUBCUT ×2 (08:50→18:02)
[2024-01-27] MEDS: budesonide 0.5 mg/2 mL Neb INHALATION ×2 (08:52→20:34)
--- NOTE | 2024-01-27 09:32 | PC.CHAP ---
Pastoral Care Encounter/Spiritual Assessment Type of Contact [] Declined combination technician visit [] Patient/Family/Request visit [] Outpatient visit [] Follow-up visit [] Physician referral [] Code/Alert [] Routine visit [] Staff referral [] Actively dying [] Patient sleeping [] Family support [] [] Out of room [] Palliative care [] [x] Receiving care in room [] Pre-surgical visit [] Trauma [] Long length of stay [] ICU visit [] Other: Relational/Emotional Strength [] Patient feels connected with others/family/visitors/staff [] Distress [] Loneliness/isolation [] Abandonment Spirituality of Patient [] Person of Rachel [] Attends Bahai of their Rachel [] Believes in Prayer [] Reads Bible or Temple materials [] There are Spiritual issues to be addressed Jordan Worker Interventions [] Prayer [] Active listening [] Non-anxious presence [] Spiritual/emotional support [] Crisis/trauma care [] Spiritual counseling [] Bereavement support [] Provided bereavement packet [] Provided Bible/devotional materials [] Provided toy/stuffed animal, coloring book to patient or family member [] Provided Communion [] Anointing/[place] [] Salvation [] Completed spiritual assessment [] Other: Impact on Illness or Injury [] Angry [] Fearful [] Anxious [] Often cries [] Exhaustion [] Unable to work [] Unable to attend mormon [] Unable to walk/stand [] Unable to read [] Unable to drive [] Unable to eat/drink [] Unable to sleep [] Unable to be with family [] Patient intubated [] Other: Summary Time spent with patient
[2024-01-27 11:37] LABS: Glucose Point of Care 341 mg/dL (70-110)
--- NOTE | 2024-01-27 12:35 | P.PN_ITS ---
Subjective 2 Subjective: Still running fast heart rate. Less cough. Still short of breath when she moves around. Metoprolol has been increased, diltiazem changed to extended release, and increased. This was done in the morning. No chest pain. Medications: Reviewed: Yes Vitals/I&O/Wt Last Vital Signs Temp 98.2 F 01/27/24 11:43 Pulse 118 H 01/27/24 11:43 Resp 19 H 01/27/24 11:43 BP 135/82 01/27/24 11:43 Pulse Ox 92 01/27/24 11:43 O2 Del Method Room Air 01/27/24 11:43 01/26/24 01/27/24 01/27/24 22:59 06:59 14:59 Intake Total 118 / 1988 720 / 720 Output Total 600 / 600 600 / 1200 Balance -482 / 1388 -600 / 788 720 / 720 Weight last 48 hrs Weight 125.055 kg Weight 125.055 kg Weight 127.006 kg Physical Exam 2 Narrative: General Exam no distress, does appear weak, currently on room air Cardiovascular irregular irregular with accelerated rate Lungs diminished breath sound at the bases Abdomen is soft nontender positive bowel sounds Extremities no cyanosis clubbing. 1+ edema bilaterally. Urinary Catheter Management: [place]: Cath Placed During This Visit: yes Reason for Continuing Indwelling Catheter: Acute Urinary Retention or Obstruction Urinary Catheter Date of Insertion: 01/26/24 Urinary Catheter Time of Insertion: 05:08 Data 01/27/24 05:29 01/27/24 05:29 Micro: Microbiology 01/25/24 17:10 Blood Culture - Preliminary Blood NEGATIVE TO DATE 01/25/24 17:05 Blood Culture - Preliminary Blood NEGATIVE TO DATE A&P Assessment and plan (1) Pneumonia: Patient presents today with pneumonia, right side No PE but has a masslike quality and will need follow-up Continue Levaquin Await sputum culture Oxygen as needed COVID and flu testing negative (2) Atrial fibrillation, chronic: Echo in December demonstrated preserved EF, diastolic dysfunction Currently with A-fib with RVR Continue metoprolol to 100 mg twice daily Diltiazem was changed 180 mg extended release this morning. Still running high. Will add 30 mg 3 times daily short acting to see if this will add control. Not a great candidate for digoxin secondary to varying renal function. Amlodipine will be discontinued as she is on 2 calcium channel blockers. Monitor blood pressure. Cardiology consult. Magnesium, TSH will be checked (3) Diabetes: Continue her long-acting insulin, sliding scale (4) Chronic obstructive pulmonary disease: Budesonide, DuoNeb Monitor for any exacerbation which is not present currently Qualifiers: COPD type: unspecified COPD Qualified Code(s): J44.9 - Chronic obstructive pulmonary disease, unspecified Plan Possible UTI, continue Levaquin. Culture pending Weakness, encourage ambulation, monitor for improvement Metastatic cancer, history of breast cancer. Continue to follow-up with her oncologist Multiple other medical problems as outlined in past medical history Full code SCDsJennifer for DVT prophylaxis Attestations 2 Medical Necessity Statement*: Needs continued hospitalization for adjustment of medication secondary to A-fib with RVR. Changed to regular admission. Diagnoses Pneumonia J18.9 Atrial fibrillation, chronic I48.20 Diabetes E11.9 Chronic obstructive pulmonary disease, unspecified COPD type J44.9 COPD type: unspecified COPD Time Spent (min) 23
[2024-01-27] MEDS: dilTIAZem 30 mg Tablet PO ×2 (13:17→22:13)
[2024-01-27 14:13] LABS: Thyroid Stimulating Hormone 0.75 uIU/mL (0.27-4.20)
[2024-01-27 16:16] LABS: Glucose Point of Care 304 mg/dL (70-110)
[2024-01-27 20:17] LABS: Glucose Point of Care 442 mg/dL (70-110)
[2024-01-27] MEDS: atorvastatin 40 mg Tablet 80 MG PO (22:12)
[2024-01-27] MEDS: enoxaparin 150 mg/mL Syringe 130 MG SUBCUT (22:14)
[2024-01-27] MEDS: HYDROcodone-acetaminophen 5-325 mg Tablet 1 TAB PO (22:19)
--- NOTE | 2024-01-27 22:39 | P.CONIM_ITS ---
<Statement entered by Reid Lopez MD - 01/28/24 22:11> Patient was evaluated and cared for in conjunction with an advanced practice practitioner. I personally examined the patient and reviewed the chart and all pertinent data including imaging, telemetry, and laboratory results. I discussed the patient in detail with the advanced practice practitioner. Please see their note for complete H&P testing result and agreed upon plan of care for the patient. 68-year-old female past medical history significant for tachybradycardia syndrome recurrent syncope obesity CA breast chronic venous insufficiency diastolic heart failure presented with A-fib RVR recently patient medicine for lower By my clinic for significant multiple 3 to 6-second pauses patient during those pauses were dizzy and felt like she got a pass out. She felt better for a while but now presented back with fast heart rate with atrial fibrillation. GENERAL: Patient is alert, awake and oriented x3. HEART: Regular S1 and S2. No murmur, rub or gallop. LUNGS: Clear to auscultate bilaterally. CENTRAL NERVOUS SYSTEM: Grossly nonfocal. EXTREMITIES: Lower extremities with out edema bilaterally. Assessment and plan Atrial fibrillation with tachybradycardia syndrome Diastolic heart failure appear to be compensated Recurrent syncope most likely secondary to sinoatrial pauses Given history and long-term solution it will be hard to manage her atrial fibrillation, patient has shown multiple pauses with presyncope and syncope on event monitor it is suggestive of sick sinus syndrome therefore we recommend if patient prognosis from breast tumor is good may proceed permanent pacemaker placement for therapeutic use. Patient agreed to it but would like to go home to her who is by himself and will go see EP abrasive coating machine operator in [place] as an outpatient. Will monitor her overnight will optimize medication if no more pauses noted or A-fib is under control we will release patient on event monitor as above Providers/Reason For Consult 2 Consulting Physician/Specialty*: Dr. Lopez Reason for Consult*: Afib rvr Requesting Physician: Dr. Tolentino Attending Physician: Augustine Tolentino MD Primary Care Provider: Jeanine Solares MD History of Present Illness History of Present Illness Seema Del Rosario is a 68 year old female with history of breast cancer stage IV. She sees Dr. Lopez as her abrasive coating machine operator for atrial fib as well she has been Eliquis. She presented to the hospital for palpitations and tachycardia. She has lethargy as well. White cell is increased. She has a history of tachy brigitte syndrome with up to 5 second pauses seen on previous event monitor. Metoprolol was recently decreased due to syncopal episodes. At this time, she is on Diltiazem long and short acting. Her metoprolol has been increased to 100 BID. She is currently asymptomatic and heart rate is under better control. BP stable. No pauses noted. Review of Systems 2 Narrative: Denies acute distress. Denies shortness of breath at this time Reports palpitations Denies strokelike symptoms Denies chest pain Denies worsening edema Denies fever, chills/body aches Medications/Allergies Home Medications Medication Instructions Recorded Confirmed Last Taken Type allopurinol 100 mg tablet 100 mg PO DAILY@0700 04/25/19 01/25/24 01/25/24 History gabapentin 300 mg capsule 300 mg PO TID@07,12,04/25/19 01/25/24 01/25/24 History isosorbide mononitrate 60 mg 120 mg PO DAILY@0700 04/25/19 01/25/24 01/25/24 History tablet,extended release 24 hr polyethylene glycol 3350 17 17 g PO DAILY PRN Constipation 04/25/19 01/25/24 2 Months Ago History gram/dose oral powder ~04/18/23 insulin degludec 100 unit/mL (3 42 unit SUBCUT BID 09/06/20 01/25/24 01/24/24 History mL) subcutaneous pen (Tresiba FlexTouch U-100 insulin) insulin lispro 100 unit/mL 30 unit SUBCUT TID 07/30/21 01/25/24 01/25/24 History subcutaneous pen (Humalog KwikPen (U-100) Insulin) Oxygen Plant Operator brace #1 ea 08/18/22 01/25/24 11/13/22 05:00 Rx tramadol 50 mg tablet 50 mg PO BID PRN Pain 09/02/22 01/25/24 06/18/23 06:30 History pantoprazole 40 mg tablet,delayed 40 mg PO QAM 10/15/22 01/25/24 01/25/24 History release apixaban 5 mg tablet (Eliquis) 5 mg PO BID #180 tabs 01/22/23 01/25/24 01/25/24 Rx clopidogrel 75 mg tablet 75 mg PO DAILY #90 tabs 01/22/23 01/25/24 01/25/24 Rx hydrocodone 5 mg-acetaminophen 325 1 tab PO Q8H PRN pain #14 tabs 06/03/23 01/25/24 06/18/23 06:30 Rx mg tablet aspirin 81 mg tablet,delayed 81 mg PO DAILY 06/15/23 01/25/24 01/25/24 History release clonidine HCl 0.3 mg tablet 0.3 mg PO TID 06/15/23 01/25/24 01/25/24 History rosuvastatin 20 mg tablet 20 mg PO BEDTIME 06/15/23 01/25/24 01/24/24 History ferrous sulfate 325 mg (65 mg 325 mg PO BID 12/23/23 01/25/24 01/25/24 History iron) tablet latanoprost 0.005 % eye drops 1 drp ophthalmic (eye) DAILY 12/23/23 01/25/24 01/25/24 History letrozole 2.5 mg tablet 2.5 mg PO DAILY 12/23/23 01/25/24 01/25/24 History losartan 25 mg tablet 25 mg PO DAILY #90 tabs 12/23/23 01/25/24 01/25/24 Rx metoprolol tartrate 50 mg tablet 50 mg PO BID #180 tabs 12/23/23 01/25/24 01/25/24 Rx ondansetron HCl 4 mg tablet 4 mg PO .q 4 hr PRN Nausea And 12/23/23 01/25/24 01/25/24 History Vomiting prochlorperazine maleate 10 mg 10 mg PO Q8H PRN Nausea And 12/23/23 01/25/24 Unknown History tablet Vomiting amlodipine 5 mg tablet 5 mg PO DAILY 01/25/24 01/25/24 01/25/24 History diltiazem HCl 60 mg tablet 60 mg PO BID 01/25/24 01/25/24 01/25/24 History duloxetine 60 mg capsule,delayed 60 mg PO DAILY 01/25/24 01/25/24 01/25/24 History release nystatin 100,000 unit/gram topical 1 applic topical BID 01/25/24 01/25/24 01/24/24 History powder (Klayesta) Allergies Allergy/AdvReac Type Severity Reaction Status Date / Time dapagliflozin [From Katietx] Allergy Intermediate ADR-Itching Verified 12/23/23 16:11 empagliflozin Allergy Intermediate ADR-Itching Verified 12/23/23 16:11 [From Michael] anastrozole Allergy ALGY-Joint Verified 12/23/23 16:10 Pain Current Medications Generic Name Dose Route Start Last Admin Trade Name Freq PRN Reason Stop Dose Admin Hydrocodone Bitart/Acetaminophen 1 tab 01/25/24 21:18 01/27/24 22:19 Hydrocodone-Acetaminophen 5-325 Mg Tablet PO 1 tab Q8H PRN Administration pain Allopurinol 100 mg 01/26/24 07:00 01/27/24 06:01 Allopurinol 100 Mg Tablet PO 100 mg DAILY@0700 BRIGITTE Administration Aspirin 81 mg 01/27/24 09:00 01/27/24 08:38 Aspirin 81 Mg Ec Tablet PO 81 mg DAILY BRIGITTE Administration Atorvastatin Calcium 80 mg 01/25/24 21:18 01/27/24 22:12 Atorvastatin 40 Mg Tablet PO 80 mg BEDTIME BRIGITTE Administration Budesonide 0.5 mg 01/26/24 20:00 01/27/24 20:34 Budesonide 0.5 Mg/2 Ml Neb INHALATION 0.5 mg BID.RESPIRATORY BRIGITTE Administration Clonidine HCl 0.3 mg 01/26/24 21:00 01/27/24 22:13 Clonidine 0.1 Mg Tablet PO 0.3 mg TID BRIGITTE Administration Clopidogrel Bisulfate 75 mg 01/26/24 09:00 01/27/24 08:38 Clopidogrel 75 Mg Tablet PO 75 mg DAILY BRIGITTE Administration Diltiazem HCl 180 mg 01/27/24 09:00 01/27/24 08:38 Diltiazem Er (24hr) 180 Mg Capsule PO 180 mg DAILY BRIGITTE Administration Diltiazem HCl 30 mg 01/27/24 12:45 01/27/24 22:13 Diltiazem 30 Mg Tablet PO 30 mg Q8H BRIGITTE Administration Duloxetine HCl 60 mg 01/26/24 09:00 01/27/24 08:38 Duloxetine 60 Mg Capsule PO 60 mg DAILY BRIGITTE Administration Enoxaparin Sodium 130 mg 01/27/24 20:30 01/27/24 22:14 Enoxaparin 150 Mg/Ml Syringe SUBCUT 130 mg Q12H BRIGITTE Administration Gabapentin 300 mg 01/26/24 07:00 01/27/24 18:04 Gabapentin 300 Mg Capsule PO 300 mg TID@ BRIGITTE Administration Levofloxacin/Dextrose 750 mg in 150 mls @ 100 mls/hr 01/26/24 09:45 01/27/24 08:42 Levaquin-D5w IV 100 mls/hr Q24H BRIGITTE Administration Protocol Insulin Glargine 28 unit 01/26/24 09:00 01/27/24 18:02 Insulin Glargine 100 Units/1 Ml SUBCUT 28 unit BID BRIGITTE Administration Insulin Human Lispro 0 unit 01/26/24 08:00 01/27/24 18:01 Insulin Lispro 100 Unit/1 Ml SUBCUT 12 unit TIDWM BRIGITTE Administration Protocol Isosorbide Mononitrate 120 mg 01/26/24 07:00 01/27/24 06:01 Isosorbide Mononitrate Er 60 Mg Tablet PO 120 mg DAILY@0700 BRIGITTE Administration Metoprolol Tartrate 100 mg 01/26/24 18:00 01/27/24 18:01 Metoprolol Tartrate 50 Mg Tablet PO 100 mg BID BRIGITTE Administration Nystatin 1 applic 01/26/24 09:00 01/27/24 18:02 Nystatin Powder 15 Gm Btl TOPICAL 1 applic BID BRIGITTE Administration Pantoprazole Sodium 40 mg 01/26/24 06:00 01/27/24 05:[address] 40 Mg Tablet PO 40 mg QAM BRIGITTE Administration Tramadol HCl 50 mg 01/25/24 21:18 01/26/24 20:57 Tramadol 50 Mg Tablet PO 50 mg BID PRN Administration Pain PFSH Acute 2 PFSH: Medical History CKD (chronic kidney disease) Atherosclerosis of coronary artery of [place] heart without angina pectoris Peripheral arterial disease Lower extremity edema Leg pain Chronic venous insufficiency Chronic obstructive pulmonary disease Atrial fibrillation, chronic Diastolic heart failure Anemia Screen for colon cancer History of breast cancer Diabetes Hypertension Surgical History History of esophagogastroduodenoscopy (EGD) (~08/2019) dr. deann om. History of colonoscopy with polypectomy (~08/2019) brandan david. History of carpal tunnel release of both wrists History of coronary angioplasty with insertion of stent History of coronary artery balloon dilation History of lumpectomy Family History Father CAD (coronary artery disease), Onset Age: 50 Cancer Diabetes Hyperlipidemia Hypertension Lung disease Denies family history of Clotting disorder Dementia Psychiatric illness Chronic kidney disease (CKD) Suicide Anesthesia complication Bleeding disorder Stroke Social History Smoking and tobacco/nicotine status: former use of tobacco/nicotine Quit status (tobacco/nicotine): has quit using Year quit tobacco: 2016 - 2PPD x 40 Years Alcohol intake: never Substance/Drug Use: never Lives independently: Yes Household members: spouse Marital status: Current occupational status: retired Do you think of yourself as: Straight/Heterosexual Current gender identity: Female Vitals/I&O/Wt Last Vital Signs Temp 98.5 F 01/27/24 19:42 Pulse 84 01/27/24 20:34 Resp 18 01/27/24 20:34 BP 123/78 01/27/24 22:13 Pulse Ox 94 01/27/24 20:34 O2 Del Method Room Air 01/27/24 20:34 01/27/24 01/27/24 01/27/24 06:59 14:59 22:59 Intake Total 720 / 720 240 / 960 Output Total 600 / 1200 650 / 650 Balance -600 / 788 720 / 720 -410 / 310 Weight last 48 hrs Weight 275 lb 11.2 oz Weight 275 lb 11.2 oz Physical Exam 2 Narrative: Alert and oriented x4 No acute distress HR irregularly irregular, s1 s2 normal no murmurs, no edema Lungs clear throughout all lung colin nondistended abdomen Urinary Catheter Management: [place]: Cath Placed During This Visit: yes Reason for Continuing Indwelling Catheter: Acute Urinary Retention or Obstruction Urinary Catheter Date of Insertion: 01/26/24 Urinary Catheter Time of Insertion: 05:08 Data 01/27/24 05:29 01/27/24 05:29 Micro: Microbiology 01/25/24 17:10 Blood Culture - Preliminary Blood NEGATIVE TO DATE 01/25/24 17:05 Blood Culture - Preliminary Blood NEGATIVE TO DATE A&P Assessment and plan (1) Atrial fibrillation, chronic: (2) Hypertension: Qualifiers: Hypertension type: primary hypertension Qualified Code(s): I10 - Essential (primary) hypertension (3) Tachy-brigitte syndrome: Plan At this time, patient is not able to have maximized medical therapy for afib tue to tachy brigitte syndrome. Recommend continue current medications. Metoprolol and diltiazem have been increased. Will see patient's response. At this time, we recommend pacemaker placement due to tachy-brigitte syndrome with 5 second pauses and syncope. Dr. Lopez will discuss with mosquera about possible pacemaker placement and transfer of patient. Discussed this with Dr. Tolentino as well. Will hold Eliquis and start therapeutic lovenox due to possible pacemaker placement. Thank you, Dr. Tolentino, for allowing us to take care of this patient. Consult Attestations 2 Medical Necessity Statement: Deferred to primary. Coding Level of Care Code Acute Code for [facility] F[facility] Diagnoses Atrial fibrillation, chronic I48.20 Primary hypertension I10 Hypertension type: primary hypertension Tachy-brigitte syndrome I49.5
[2024-01-28] VITALS (9 sets, daily range): BP systolic 120–151; BP diastolic 70–91; PULSE 59–87; RESP 16–19; TEMP 36.5–37; O2SAT 93–96
[2024-01-28 02:26] LABS: Anion Gap 14.8 (5-19); Blood Urea Nitrogen 32 mg/dL (8-23); Calcium 8.4 mg/dL (8.5-10.5); Carbon Dioxide 22 mmol/L (22-29); Chloride 99 mmol/L (98-107); Glomerular Filtration Rate 29.9 mL/min (90-130); Glucose 329 mg/dL (65-115); Osmolality Calculated 294 mOsm/kg (285-295); Potassium 3.8 mmol/L (3.5-5.1); Sodium 132 mmol/L (136-145)
[2024-01-28 06:15] LABS: Glucose Point of Care 256 mg/dL (70-110)
[2024-01-28] MEDS: isosorbide mononitrate ER 60 mg Tablet 120 MG PO (06:45)
[2024-01-28] MEDS: dilTIAZem 30 mg Tablet PO (06:45)
[2024-01-28] MEDS: allopurinol 100 mg Tablet PO (06:45)
[2024-01-28] MEDS: gabapentin 300 mg Capsule PO ×2 (06:45→12:34)
[2024-01-28] MEDS: pantoprazole DR 40 mg Tablet PO (06:45)
[2024-01-28] MEDS: enoxaparin 150 mg/mL Syringe 130 MG SUBCUT (08:49)
[2024-01-28] MEDS: insulin lispro 100 unit/1 mL SUBCUT ×2 (08:49→12:34)
[2024-01-28] MEDS: clopidogrel 75 mg Tablet PO (08:51)
[2024-01-28] MEDS: duloxetine 60 mg Capsule PO (08:51)
[2024-01-28] MEDS: aspirin 81 mg EC Tablet PO (08:51)
[2024-01-28] MEDS: cloNIDine 0.1 mg Tablet 0.3 MG PO (08:51)
[2024-01-28] MEDS: dilTIAZem ER (24HR) 180 mg Capsule PO (08:52)
[2024-01-28] MEDS: metoprolol tartrate 50 mg Tablet 100 MG PO (08:52)
[2024-01-28] MEDS: nystatin powder 15 gm Btl 1 APPLIC TOPICAL (08:53)
[2024-01-28] MEDS: insulin glargine 100 units/1 mL 28 UNIT SUBCUT (08:54)
[2024-01-28] MEDS: budesonide 0.5 mg/2 mL Neb INHALATION (08:59)
[2024-01-28] MEDS: ipratropium-albuterol 3 mL Neb INHALATION (09:00)
--- NOTE | 2024-01-28 10:33 | P.PN_ITS ---
<Statement entered by Reid Lopez MD - 01/28/24 20:45> Patient was evaluated and cared for in conjunction with an advanced practice practitioner. I personally examined the patient and reviewed the chart and all pertinent data including imaging, telemetry, and laboratory results. I discussed the patient in detail with the advanced practice practitioner. Please see their note for complete H&P testing result and agreed upon plan of care for the patient. Feeling better no more rapid ventricular response, no significant pauses noted GENERAL: Patient is alert, awake and oriented x3. HEART: Regular S1 and S2. No murmur, rub or gallop. LUNGS: Clear to auscultate bilaterally. CENTRAL NERVOUS SYSTEM: Grossly nonfocal. EXTREMITIES: Lower extremities with out edema bilaterally. Assessment and plan Recurrent syncope Atrial fibrillation with tachybradycardia syndrome History of neoplasm Chronic kidney disease As evident by event monitor patient had multiple episodes of significant more than 3-second pauses while awake he was dizzy and presyncopal with those pauses her medicines were reduced in terms of roxanne walter however patient ended up in the hospital with A-fib RVR, she is slow down on Cardizem drip, will switch to p.o. 180 mg of Cardizem and 25 mg of metoprolol. Will place her on event monitor again as patient would like to go home to her sick . Will refer patient for permanent pacemaker placement given history of multiple recurrent fall passing out documented more than 3-second pauses and for uncontrolled atrial fibrillation and inability to place her on antiarrhythmic or roxanne walter to control A-fib Subjective 2 Subjective: Patient doing well this morning. Denies any issues at this time. Heart rate is much improved. Patient is asymptomatic and would like to go home. Medications: Reviewed: Yes Vitals/I&O/Wt Last Vital Signs Temp 97.7 F 01/28/24 07:13 Pulse 61 01/28/24 09:16 Resp 17 01/28/24 09:00 BP 134/91 01/28/24 08:51 Pulse Ox 93 01/28/24 09:00 O2 Del Method Room Air 01/28/24 09:00 01/27/24 01/28/24 01/28/24 22:59 06:59 14:59 Intake Total 600 / 1320 240 / 1560 630 / 630 Output Total 750 / 750 200 / 950 Balance -150 / 570 40 / 610 630 / 630 Weight last 48 hrs Weight 275 lb 9.6 oz Weight 275 lb 11.2 oz Weight 275 lb 11.2 oz Physical Exam 2 Narrative: Alert and oriented x4 No acute distress HR irregularly irregular, s1 s2 normal no murmurs, no edema Lungs clear throughout all lung colin nondistended abdomen Urinary Catheter Management: [place]: Cath Placed During This Visit: yes Reason for Continuing Indwelling Catheter: Other Urinary Catheter Date of Insertion: 01/26/24 Urinary Catheter Time of Insertion: 05:08 Data 01/27/24 05:29 01/28/24 01:43 Micro: Microbiology 01/27/24 09:34 Urine Culture - Preliminary Urine Catheterized A&P Assessment and plan (1) Atrial fibrillation, chronic: (2) Hypertension: Qualifiers: Hypertension type: primary hypertension Qualified Code(s): I10 - Essential (primary) hypertension (3) Tachy-brigitte syndrome: Plan At this time, patient is not able to have maximized medical therapy for afib tue to tachy brigitte syndrome. She is now rate controlled and asymptomatic. No pauses overnight. At this time the patient would like to go home. We will discuss with Soni possible pacemaker placement. She will go home on an event monitor. Continue metoprolol dose and switch Diltiazem to 240 daily extended release. Should she develop s/s of fast heart rate such as severe dizziness/syncopal episodes seek medical assistance immediately. We will discuss the plan with her oncologist. She will be following up with them. Us in 1 week. Attestations 2 Medical Necessity Statement*: Deferred to primary. Coding Level of Care Code Acute Code for [facility] Diagnoses Atrial fibrillation, chronic I48.20 Primary hypertension I10 Hypertension type: primary hypertension Tachy-brigitte syndrome I49.5
--- NOTE | 2024-01-28 11:05 | P.DS_ITS ---
Discharge Providers Date of Admission: 01/26/24 16:08 Date of Discharge: January 28, 2024 Attending Provider at Admission: Reid Castro MD Attending Provider at Discharge: Augustine Tolentino MD Primary Care Provider: Jeanine Solares MD Diagnoses at Discharge Discharge Diagnosis (1) Atrial fibrillation, chronic: Status: Acute (2) Hypertension: Status: Acute Qualifiers: Hypertension type: primary hypertension Qualified Code(s): I10 - Essential (primary) hypertension (3) Tachy-brigitte syndrome: Status: Acute Reason for Visit Reason for Visit: fall, weakness, a flutter Hospital Course Hospital Course Seema is a 68-year-old white female who presented to the hospital on January 24, with concerns of pneumonia as well as atrial fibrillation with rapid ventricular rate. She was placed on IV antibiotics that was changed to Levaquin. There was a masslike quality to the area of pneumonia and I recommended she follow-up with her oncologist as an outpatient as she has stage IV breast cancer. For the atrial fibrillation her metoprolol was increased as well as her Cardizem. Cardiology was consulted. Urinary tract infection was also noted to likely be present. With adjustment of her medication her atrial fibrillation came under control. There was concern concern with her history of tachybradycardia syndrome, and cardiology contemplated pacemaker placement. Ultimately it was decided to discharge home with event monitor with close follow-up. She will finish 3 more days of Levaquin, follow-up with cardiology as well as her oncologist. She was able to ask questions and agreed with the plan. Physical Exam Narrative: General Exam no distress Neck is supple Cardiovascular irregular irregular with controlled rate Lungs clear but with diminished breath sounds at the bases Abdomen is soft nontender positive bowel sounds Extremities no cyanosis clubbing nor edema Urinary Catheter Management: [place]: Cath Placed During This Visit: yes Reason for Continuing Indwelling Catheter: Other Urinary Catheter Date of Insertion: 01/26/24 Urinary Catheter Time of Insertion: 05:08 Discharge Data Studies Completed and Pending Completed Studies During Hospitalization Category Date Time Status CT angio chest PE protcl [id number] Stat Cat Scan 01/25/24 14:45 Completed XR chest 1V portable [id number] Stat Exams 01/25/24 14:00 Completed Pending at discharge Category Date Time Status Blood Culture Stat Lab 01/25/24 17:10 Results Sputum Culture and Gram Stain Routine Lab 01/26/24 16:11 Uncollected Urine Culture Stat Lab 01/26/24 16:17 Results Radiology Impressions Chest X-Ray 01/25/24 14:00 IMPRESSION: 1. Consolidated RIGHT perihilar density that is suspicious for a mass. This could also represent consolidated pneumonia. Imaging follow-up until resolution recommended. Ultimately, contrast CT of the chest may be necessary for further work-up. 2. No acute infiltrates or other significant finding. Chest CTA 01/25/24 14:45 IMPRESSION: 1. Dense irregular consolidation centered at the RIGHT hilum extending into the RIGHT upper lobe measures 5.2 x 3.2 cm. Additional more peripheral RIGHT upper lobe scattered opacifications. Differential includes neoplasm versus pneumonia. There is partial encasement with narrowing of the RIGHT upper lobe proximal bronchus. 2. Enlarged RIGHT hilar lymph node, 13 mm. 3. Patient has a known RIGHT adrenal mass now measuring 5.0 x 3.9 cm which is increased in size. This may be a metastatic site. RIGHT adrenal mass has been present since 2017 but has increased in size. Collision tumor is not excluded. 4. LEFT adenomyelolipoma. 5. Postsurgical changes LEFT breast from prior partial lumpectomy and posttreatment skin thickening. 6. No pulmonary embolism. Laboratory Results WBC 12.01 10^3/uL (3.29-11.43) H 01/27/24 05:29 RBC 3.71 10^6/uL (3.85-5.65) L 01/27/24 05:29 Hgb 10.40 g/dL (11.27-16.99) L 01/27/24 05:29 Hct 34.2 % (36-47) L 01/27/24 05:29 MCV 92.2 fl (85-98) 01/27/24 05:29 MCH 28.0 pg (27-33) 01/27/24 05:29 MCHC 30.4 g/dL (30-55) 01/27/24 05:29 RDW 15.6 % (12.1-15.1) H 01/27/24 05:29 Plt Count 251 10^3/cmm (157-399) 01/27/24 05:29 MPV 10.3 fL (7.4-10.4) 01/27/24 05:29 Neut % (Auto) 77.9 % 01/27/24 05:29 Lymph % (Auto) 12.7 % 01/27/24 05:29 Gregory % (Auto) 7.1 % 01/27/24 05:29 Eos % (Auto) 1.3 % 01/27/24 05:29 Baso % (Auto) 0.4 % 01/27/24 05:29 Neut # (Auto) 9.35 10^3/uL (1.8-7.7) H 01/27/24 05:29 Lymph # (Auto) 1.5 10^3/uL (0.8-4.8) 01/27/24 05:29 Gregory # (Auto) 0.9 10^3/uL (0.2-0.9) 01/27/24 05:29 Eos # (Auto) 0.2 10^3/uL (0.0-0.8) 01/27/24 05:29 Baso # (Auto) 0.1 10^3/uL (0.0-0.1) 01/27/24 05:29 Nucleated RBC % (auto) 0 % 01/27/24 05:29 Nucleated RBCs # 0.0 /100WBC 01/27/24 05:29 Sodium 132 mmol/L (136-145) L 01/28/24 01:43 Potassium 3.8 mmol/L (3.5-5.1) 01/28/24 01:43 Chloride 99 mmol/L (98-107) 01/28/24 01:43 Carbon Dioxide 22 mmol/L (22-29) 01/28/24 01:43 Anion Gap 14.8 (5-19) 01/28/24 01:43 BUN 32 mg/dL (8-23) H 01/28/24 01:43 Creatinine 1.7 mg/dL (0.5-0.9) H 01/28/24 01:43 GFR Calculation 29.9 mL/min (90-130) L 01/28/24 01:43 Glucose 329 mg/dL (65-115) H 01/28/24 01:43 POC Glucose 256 mg/dL (70-110) H 01/28/24 06:04 Calculated Osmolality 294 mOsm/kg (285-295) 01/28/24 01:43 Lactic Acid 1.3 mmol/L (0.5-2.2) 01/25/24 17:05 Calcium 8.4 mg/dL (8.5-10.5) L 01/28/24 01:43 Magnesium 2.0 mg/dL (1.7-2.3) 01/28/24 01:43 Total Bilirubin 0.4 mg/dL (0.15-1.2) 01/27/24 05:29 AST 15 U/L (0-32) 01/27/24 05:29 ALT 13 U/L (0-33) 01/27/24 05:29 Alkaline Phosphatase 96 U/L (35-105) 01/27/24 05:29 Troponin T Baseline 37 ng/L (0-10) H 01/25/24 13:21 Troponin T 120 Minute 32.81 ng/L (0-10) H 01/25/24 15:29 Delta Troponin T -4.19 ABS# (0-10) L 01/25/24 15:29 Troponin T Hi Sens 6Hr 27.87 ng/L (0-10) H 01/25/24 20:05 Troponin T Hi Sens 6Hr Delta -9.13 ng/L (0-12) L 01/25/24 20:05 C-Reactive Protein 70.8 mg/L (0.0-4.9) H 01/26/24 03:26 Total Protein 6.3 g/dL (6.6-8.7) L 01/27/24 05:29 Albumin 3.0 g/dL (3.5-5.2) L 01/27/24 05:29 Globulin 3.3 g/dL (1.3-4.6) 01/27/24 05:29 Procalcitonin 0.08 ng/mL (0-0.5) 01/26/24 03:26 TSH 0.75 uIU/mL (0.27-4.20) 01/27/24 05:29 Urine Color Yellow (Yellow) 01/25/24 14:45 Urine Appearance Turbid (CLEAR) A 01/25/24 14:45 Urine pH 5.0 (5-7) 01/25/24 14:45 Ur Specific [place] 1.027 (1.005-1.030) 01/25/24 14:45 Urine Protein 3+ (Negative) A 01/25/24 14:45 Urine Glucose (UA) 3+ (Normal) H 01/25/24 14:45 Urine Ketones Negative (Negative) 01/25/24 14:45 Urine Blood Negative (Negative) 01/25/24 14:45 Urine Nitrate Negative (Negative) 01/25/24 14:45 Urine Bilirubin Negative (Negative) 01/25/24 14:45 Urine Urobilinogen 1.0 mg/dL (Negative) 01/25/24 14:45 Ur Leukocyte Esterase 1+ (Negative) A 01/25/24 14:45 Urine RBC 3-5 /hpf (0-2) 01/25/24 14:45 Urine WBC 25-40 /hpf (0-5) H 01/25/24 14:45 Ur Squamous Epith Cells 11-20 /hpf (0-5) 01/25/24 14:45 Amorphous Sediment Not Reportable 01/25/24 14:45 Urine Bacteria 2+ /hpf (NONE) H 01/25/24 14:45 Fine Granular Casts 0-4 /lpf H 01/25/24 14:45 Coronavirus (PCR) Negative (Negative) 01/25/24 15:15 Influenza A (PCR) Negative (Negative) 01/25/24 15:15 Influenza Type B (PCR) Negative (Negative) 01/25/24 15:15 RSV (PCR) Negative (Negative) 01/25/24 15:15 Vitals Last Vital Signs Temp 97.7 F 01/28/24 07:13 Pulse 61 01/28/24 09:16 Resp 17 01/28/24 09:00 BP 134/91 01/28/24 08:51 Pulse Ox 93 01/28/24 09:00 O2 Del Method Room Air 01/28/24 09:00 Discharge Plan Discharge Patient Disposition: Home Condition: Stable Prescriptions: New metoprolol tartrate 50 mg Tablet 100 mg PO BID Qty: 120 0RF diltiazem HCl 240 mg capsule,extended release 24 hr 240 mg PO DAILY Qty: 30 0RF levofloxacin 750 mg tablet 750 mg PO DAILY 4 Days Qty: 3 0RF Continued Tresiba FlexTouch U-100 100 unit/mL (3 mL) insulin pen 42 unit SUBCUT BID insulin lispro [Humalog KwikPen Insulin] 100 unit/mL insulin pen 30 unit SUBCUT TID Eliquis 5 mg tablet 5 mg PO BID Qty: 180 3RF clopidogrel 75 mg tablet 75 mg PO DAILY Qty: 90 3RF latanoprost 0.005 % drops 1 drp ophthalmic (eye) DAILY ondansetron HCl 4 mg tablet 4 mg PO .q 4 hr PRN (Reason: Nausea And Vomiting) prochlorperazine maleate 10 mg tablet 10 mg PO Q8H PRN (Reason: Nausea And Vomiting) ferrous sulfate 325 mg (65 mg iron) tablet 325 mg PO BID letrozole 2.5 mg tablet 2.5 mg PO DAILY (DME) Risk Control Analyst brace See Rx Instructions .Route .MEDSUPPLY Qty: 1 0RF Rx Instructions: As directed allopurinol 100 mg tablet 100 mg PO DAILY@0700 gabapentin 300 mg capsule 300 mg PO TID@,, polyethylene glycol 3350 17 gram/dose powder 17 g PO DAILY PRN (Reason: Constipation) pantoprazole 40 mg tablet,delayed release (DR/EC) 40 mg PO QAM hydrocodone-acetaminophen 5-325 mg tablet 1 tab PO Q8H PRN (Reason: pain) Qty: 14 0RF nystatin [Klayesta] 100,000 unit/gram powder 1 applic TOPICAL BID duloxetine 60 mg capsule,delayed release(DR/EC) 60 mg PO DAILY tramadol 50 mg tablet 50 mg PO BID PRN (Reason: Pain) clonidine HCl 0.3 mg tablet 0.3 mg PO TID aspirin 81 mg tablet,delayed release (DR/EC) 81 mg PO DAILY rosuvastatin 20 mg tablet 20 mg PO BEDTIME Discontinued metoprolol tartrate 50 mg tablet 50 mg PO BID Qty: 180 3RF losartan 25 mg tablet 25 mg PO DAILY Qty: 90 3RF isosorbide mononitrate 60 mg tablet extended release 24 hr 120 mg PO DAILY@0700 amlodipine 5 mg tablet 5 mg PO DAILY diltiazem HCl 60 mg tablet 60 mg PO BID Discharge Orders: Discharge Order (Routine); Ordered 01/28/24 Ordered By: Augustine Tolentino Other Ambulatory Orders: MCT/Event Monitor 21 Days (Routine) Timeframe: 1 Day Facility: [facility] - Location: Radiology Ordered By: Augustine Tolentino Referrals: Jeanine Solares MD [Primary Care Provider] - 4-7 days (BMP on follow-up) Priti Figueredo FNP [Nurse Practitioner] - 7-10 days Discharge Diet: Cardiac and Diabetic Discharge Activity: Increase activity as tolerated Patient Instructions: Opioid Safety Activity Restrictions/Additional Instructions: 21 Day Event Monitor: APPT is scheduled for ThursdayJanuary 31 @3 pm Take all medicine as prescribed Event monitor on discharge Return for any concerns Follow-up with cardiology, 1 week Please arrange follow-up with your oncologist, regarding the masslike quality to the pneumonia in the right chest. Discharge Attestations Time Spent in Discharge Care*: greater than 30 min Quality Metrics Clinical Quality Measures [ No reported AMI, CVA or VTE this stay] Coding Level of Care Code 33643 Total time (in minutes) for Discharge: 36 Diagnoses Atrial fibrillation, chronic I48.20 Primary hypertension I10 Hypertension type: primary hypertension Tachy-brigitte syndrome I49.5
[2024-01-28 11:24] LABS: Glucose Point of Care 357 mg/dL (70-110)
== END 2024-01-28 15:35 | disposition home or self-care (01) | DRG 308 ==
LOC: ER 15:50 → ER IP 22:37 → MEDSURG 01-26 10:00
PROVIDERS: Admitting Provider Internal Medicine; Emergency Provider Family Medicine; PCP Internal Medicine; Visit Provider Internal Medicine
DX: I48.20 Chronic atrial fibrillation, unspecified (principal); J18.9 Pneumonia, unspecified organism; J44.0 Chronic obstructive pulmonary disease with (acute) lower respiratory infection; C79.9 Secondary malignant neoplasm of unspecified site; N39.0 Urinary tract infection, site not specified; I13.0 Hypertensive heart and chronic kidney disease with heart failure and stage 1 through stage 4 chronic kidney disease, or unspecified chronic kidney disease; I50.32 Chronic diastolic (congestive) heart failure; Z68.41 Body mass index [BMI] 40.0-44.9, adult; R55 Syncope and collapse; I49.5 Sick sinus syndrome; E86.0 Dehydration; N18.31 Chronic kidney disease, stage 3a; E11.22 Type 2 diabetes mellitus with diabetic chronic kidney disease; E11.51 Type 2 diabetes mellitus with diabetic peripheral angiopathy without gangrene; C50.512 Malignant neoplasm of lower-outer quadrant of left female breast; R91.8 Other nonspecific abnormal finding of lung field; I25.10 Atherosclerotic heart disease of native coronary artery without angina pectoris; E66.01 Morbid (severe) obesity due to excess calories; Z79.4 Long term (current) use of insulin; Z79.01 Long term (current) use of anticoagulants; Z79.02 Long term (current) use of antithrombotics/antiplatelets; Z79.891 Long term (current) use of opiate analgesic; Z79.82 Long term (current) use of aspirin; Z92.21 Personal history of antineoplastic chemotherapy; Z95.5 Presence of coronary angioplasty implant and graft; Z87.891 Personal history of nicotine dependence; Z11.52 Encounter for screening for COVID-19
CPT/HCPCS: 0241U; 36415; 36416; 51702; 71045; 71275; 80048; 80053; 81001; 82962; 83605; 83735; 84145; 84443; 84484; 85025; 86140; 87040; 87086; 93005; 94640; 94664; 96365; 96372; 96375; 97110; 97116; 97161; 97530; 99285; G0378; J0456; J0696; J1650; J1815; J1956; J2270; J7030; J7050; J7626

== ENCOUNTER → 2024-02-02 15:00 | Outpatient (BNVA) | payer MEDICARE, MEDICAID, SELFPAY | PROVIDERS: PCP Internal Medicine; Visit Provider Nurse Practitioner Family | DX: I49.5 Sick sinus syndrome (principal); I13.0 Hypertensive heart and chronic kidney disease with heart failure and stage 1 through stage 4 chronic kidney disease, or unspecified chronic kidney disease; I50.32 Chronic diastolic (congestive) heart failure; N18.9 Chronic kidney disease, unspecified; E11.22 Type 2 diabetes mellitus with diabetic chronic kidney disease; Z87.891 Personal history of nicotine dependence; Z79.4 Long term (current) use of insulin | CPT/HCPCS: 99213 ==

== ENCOUNTER 2024-02-16 16:42 | Emergency (ER) | payer MEDICARE, MEDICAID, SELFPAY ==
[2024-02-16] VITALS (11 sets, daily range): BP systolic 163–185; BP diastolic 81–109; PULSE 62–76; RESP 12–20; TEMP 36.8; O2SAT 90–95; BMI 44.2
--- NOTE | 2024-02-16 16:48 | XRR_ITS ---
PROCEDURE INFORMATION: Exam: XR Chest Exam date and time: 02/16/2024 4:53 PM Age: 68 years old Clinical indication: Cough and dyspnea; Additional info: Dyspnea/cough TECHNIQUE: Imaging protocol: Radiologic exam of the chest. Views: 1 view. COMPARISON: CT angio chest PE protcl [id number] 01/25/2024 3:40 PM FINDINGS: Lungs: Curvilinear scarring at the right mid lung. No consolidation. Pleural spaces: Unremarkable. No pleural effusion. No pneumothorax. Heart/Mediastinum: Unremarkable. No cardiomegaly. Bones/joints: Visualized osseous structures are intact. Moderate DJD of the right shoulder. XR/XR chest 1V portable [id number] IMPRESSION: No acute findings.
--- NOTE | 2024-02-16 16:48 | ECG_ITS ---
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 Measurements Intervals [place] Rate: 77 P: 62 IA: 184 QRS: -37 QRSD: 161 T: -19 QT: 419 QTc: 474 Interpretive Statements SINUS RHYTHM LEFT AXIS DEVIATION [QRS AXIS < -30] RIGHT BUNDLE BRANCH BLOCK [120+ ms QRS DURATION, UPRIGHT V1, 40+ ms S IN I/aVL/V4/V5/V6] SEPTAL MYOCARDIAL INFARCTION , OF INDETERMINATE AGE [40+ ms Q WAVE IN V1/V2] MODERATE T-WAVE ABNORMALITY, CONSIDER LATERAL ISCHEMIA [-0.1+ mV T-WAVE IN I/aVL/V5/V6] Compared to ECG 01/25/2024 21:08:14 T-wave abnormality now present Possible ischemia now present Atrial flutter no longer present Myocardial infarct finding still present Electronically Signed On 02-16-2024 17:44:21 PUBLIC HEALTH INSPECTOR by Valentin Partida M.D. [email or web address]
--- NOTE | 2024-02-16 16:52 | ED_ITS ---
Documented by User: Godwin Mclaughlin DO 02/18/24 09:50 HPI - Chest Pain 2 General: Chief Complaint: Chest Pain Stated Complaint: Chest Pain Time Seen by Provider: 02/16/24 16:47 History of Present Illness: 68-year-old female presents emergency ro om reporting left-sided chest pain radiating to her left arm. States it was 7 out of 10 at home when she received nitro and pretty much resolved by the time she arrived here. She was short of breath with it. Blood sugars have been elevated. She reports she has not been taking care over self very well since her recently. Associated symptoms: Deny abdominal pain, dyspnea or fever(s) Related Data Home Medications Medication Instructions Recorded Confirmed allopurinol 100 mg tablet 100 mg PO DAILY@0700 04/25/19 02/02/24 gabapentin 300 mg capsule 300 mg PO TID@07,12,19 04/25/19 02/02/24 polyethylene glycol 3350 17 17 g PO DAILY PRN Constipation 04/25/19 02/02/24 gram/dose oral powder insulin degludec 100 unit/mL (3 42 unit SUBCUT BID 09/06/20 02/02/24 mL) subcutaneous pen (Tresiba FlexTouch U-100 insulin) insulin lispro 100 unit/mL 30 unit SUBCUT TID 07/30/21 02/02/24 subcutaneous pen (Humalog KwikPen (U-100) Insulin) tramadol 50 mg tablet 50 mg PO BID PRN Pain 09/02/22 02/02/24 pantoprazole 40 mg tablet,delayed 40 mg PO QAM 10/15/22 02/02/24 release aspirin 81 mg tablet,delayed 81 mg PO DAILY 06/15/23 02/02/24 release clonidine HCl 0.3 mg tablet 0.3 mg PO TID 06/15/23 02/02/24 rosuvastatin 20 mg tablet 20 mg PO BEDTIME 06/15/23 02/02/24 ferrous sulfate 325 mg (65 mg 325 mg PO BID 12/23/23 02/02/24 iron) tablet latanoprost 0.005 % eye drops 1 drp ophthalmic (eye) DAILY 12/23/23 02/02/24 letrozole 2.5 mg tablet 2.5 mg PO DAILY 12/23/23 02/02/24 ondansetron HCl 4 mg tablet 4 mg PO .q 4 hr PRN Nausea And 12/23/23 02/02/24 Vomiting prochlorperazine maleate 10 mg 10 mg PO Q8H PRN Nausea And 12/23/23 02/02/24 tablet Vomiting duloxetine 60 mg capsule,delayed 60 mg PO DAILY 01/25/24 02/02/24 release nystatin 100,000 unit/gram topical 1 applic topical BID 01/25/24 02/02/24 powder (Klayesta) Previous Rx's Medication Instructions Recorded Gold Reclaimer brace #1 ea 08/18/22 apixaban 5 mg tablet (Eliquis) 5 mg PO BID #180 tabs 01/22/23 hydrocodone 5 mg-acetaminophen 325 1 tab PO Q8H PRN pain #14 tabs 06/03/23 mg tablet metoprolol tartrate 50 mg tablet 100 mg (2 x 50 mg) PO BID #120 tabs 01/28/24 clopidogrel 75 mg tablet See Rx Instructions .Route 02/11/24 .COMPLEX #90 tabs diltiazem HCl 120 mg See Rx Instructions .Route 02/15/24 capsule,extended release 24 hr .COMPLEX #90 caps Allergies Allergy/AdvReac Type Severity Reaction Status Date / Time dapagliflozin [From Farxiga] Allergy Intermediate ADR-Itching Verified 02/02/24 15:15 empagliflozin Allergy Intermediate ADR-Itching Verified 02/02/24 15:15 [From Jardiance] anastrozole Allergy ALGY-Joint Verified 02/02/24 15:15 Pain Review of Systems 2 Const: Denies: fever(s) or chills Card: Denies: chest pain Resp: Denies: dyspnea GI: Denies: abdominal pain : Denies: dysuria, urinary frequency or urinary urgency Musc: Denies: neck pain or back pain Skin/Breast: Denies: rash PFSH ED 2 PFSH: Medical History CKD (chronic kidney disease) Atherosclerosis of coronary artery of [place] heart without angina pectoris Peripheral arterial disease Lower extremity edema Leg pain Chronic venous insufficiency Chronic obstructive pulmonary disease Atrial fibrillation, chronic Diastolic heart failure Anemia Screen for colon cancer History of breast cancer Diabetes Hypertension Surgical History History of esophagogastroduodenoscopy (EGD) (~08/2019) brandan david. History of colonoscopy with polypectomy (~08/2019) brandan david. History of carpal tunnel release of both wrists History of coronary angioplasty with insertion of stent History of coronary artery balloon dilation History of lumpectomy Family History Father CAD (coronary artery disease), Onset Age: 50 Cancer Diabetes Hyperlipidemia Hypertension Lung disease Denies family history of Clotting disorder Dementia Psychiatric illness Chronic kidney disease (CKD) Suicide Anesthesia complication Bleeding disorder Stroke Social History Smoking and tobacco/nicotine status: former use of tobacco/nicotine Quit status (tobacco/nicotine): has quit using Year quit tobacco: 2016 - 2PPD x 40 Years Alcohol intake: never Substance/Drug Use: never Lives independently: Yes Household members: spouse Marital status: Current occupational status: retired Do you think of yourself as: Straight/Heterosexual Current gender identity: Female Physical Exam 2 Const: GENERAL APPEARANCE: cooperative ORIENTATION/CONSCIOUSNESS: Yes awake, Yes oriented to person, Yes oriented to place and Yes oriented to time HENMT: COMMON NORMALS: normocephalic, atraumatic and hearing grossly normal bilaterally HEAD & SCALP: normocephalic and atraumatic Resp: COMMON NORMALS: normal respiratory effort, No retractions, No use of accessory muscles and clear to auscultation bilaterally AUSCULTATION: clear to auscultation bilaterally Cardio: COMMON NORMALS: regular rate, regular rhythm and No murmurs present (Cardio) RATE: regular rate RHYTHM: regular rhythm GI: COMMON NORMALS: Soft to palpation and No hepatosplenomegaly present A USCULTATION: Yes normoactive bowel sounds PALPATION: Yes Soft to palpation, No Tenderness to palpation present (GI), No Guarding due to palpation present (GI) and Yes No hepatosplenomegaly present Extremity: COMMON NORMALS: normal to inspection, capillary refill normal, no clubbing, cyanosis or edema, no calf tenderness and no pedal edema Neuro: SENSORIUM/ORIENTATION: Yes oriented to person, Yes oriented to place and Yes oriented to time Skin: COMMON NORMALS: no rashes or lesions noted GENERAL SKIN EXAM: no rashes or lesions noted Course 2 Vital Signs: Vital signs: Vital Signs Temperature 98.2 F 02/16/24 16:47 Pulse Rate 66 02/16/24 20:26 Respiratory Rate 20 H 02/16/24 20:26 Blood Pressure 165/81 02/16/24 20:26 Pulse Oximetry 92 02/16/24 20:26 Oxygen Delivery Me thod Room Air 02/16/24 16:47 MDM - Chest Pain Medical Decision Making Care signed out to Dr. Cruz at change of shift. See final notes for diagnosis and disposition. Patient transferred over myself at shift change waiting on lab work to come back. Once lab work is back troponins are stable, patient is give another 10 units of IV insulin to help her blood sugar come down. It was 491 and eventually work its way down to approximately 304, these results was discussed with the patient patient be discharged home. Medical Records I reviewed the patient's medical records. Lab Data I reviewed the patient's lab results. 02/16/24 16:53 02/16/24 16:53 Radiology Impressions Chest X-Ray 02/16/24 16:48 IMPRESSION: No acute findings. Laboratory Results WBC 10.38 10^3/uL (3.29-11.43) 02/16/24 16:53 RBC 4.15 10^6/uL (3.85-5.65) 02/16/24 16:53 Hgb 11.50 g/dL (11.27-16.99) 02/16/24 16:53 Hct 36.1 % (36-47) 02/16/24 16:53 MCV 87.0 fl (85-98) 02/16/24 16:53 MCH 27.7 pg (27-33) 02/16/24 16:53 MCHC 31.9 g/dL (30-55) 02/16/24 16:53 RDW 15.2 % (12.1-15.1) H 02/16/24 16:53 Plt Count 253 10^3/cmm (157-399) 02/16/24 16:53 MPV 9.9 fL (7.4-10.4) 02/16/24 16:53 Neut % (Auto) 81.4 % 02/16/24 16:53 Lymph % (Auto) 12.8 % 02/16/24 16:53 [place] % (Auto) 4.5 % 02/16/24 16:53 Eos % (Auto) 0.6 % 02/16/24 16:53 Baso % (Auto) 0.4 % 02/16/24 16:53 Neut # (Auto) 8.45 10^3/uL (1.8-7.7) H 02/16/24 16:53 Lymph # (Auto) 1.3 10^3/uL (0.8-4.8) 02/16/24 16:53 [place] # (Auto) 0.5 10^3/uL (0.2-0.9) 02/16/24 16:53 Eos # (Auto) 0.1 10^3/uL (0.0-0.8) 02/16/24 16:53 Baso # (Auto) 0.0 10^3/uL (0.0-0.1) 02/16/24 16:53 Nucleated RBC % (auto) 0 % 02/16/24 16:53 Nucleated RBCs # 0.0 /100WBC 02/16/24 16:53 Sodium 136 mmol/L (136-145) 02/16/24 16:53 Potassium 3.6 mmol/L (3.5-5.1) 02/16/24 16:53 Chloride 97 mmol/L (98-107) L 02/16/24 16:53 Carbon Dioxide 28 mmol/L (22-29) 02/16/24 16:53 Anion Gap 14.6 (5-19) 02/16/24 16:53 BUN 20 mg/dL (8-23) 02/16/24 16:53 Creatinine 0.8 mg/dL (0.5-0.9) 02/16/24 16:53 GFR Calculation 71.3 mL/min (90-130) L 02/16/24 16:53 Glucose 431 mg/dL (65-115) H 02/16/24 16:53 POC Glucose 308 mg/dL (70-110) H 02/16/24 20:05 Calculated Osmolality 303 mOsm/kg (285-295) H 02/16/24 16:53 Calcium 9.6 mg/dL (8.5-10.5) 02/16/24 16:53 Total Bilirubin 0.4 mg/dL (0.15-1.2) 02/16/24 16:53 AST 12 U/L (0-32) 02/16/24 16:53 ALT 11 U/L (0-33) 02/16/24 16:53 Alkaline Phosphatase 121 U/L (35-105) H 02/16/24 16:53 Troponin T Baseline 30 ng/L (0-10) H 02/16/24 16:53 Troponin T 120 Minute 27.92 ng/L (0-10) H 02/16/24 18:40 Delta Troponin T -2.08 ABS# (0-10) L 02/16/24 18:40 Total Protein 6.4 g/dL (6.6-8.7) L 02/16/24 16:53 Albumin 3.4 g/dL (3.5-5.2) L 02/16/24 16:53 Globulin 3.0 g/dL (1.3-4.6) 02/16/24 16:53 Urine Color Yellow (Yellow) 02/16/24 17:31 Urine Appearance Clear (CLEAR) 02/16/24 17:31 Urine pH 6.0 (5-7) 02/16/24 17:31 Ur Specific [place] 1.023 (1.005-1.030) 02/16/24 17:31 Urine Protein 4+ (Negative) A 02/16/24 17:31 Urine Glucose (UA) 3+ (Normal) H 02/16/24 17:31 Urine Ketones Negative (Negative) 02/16/24 17: Urine Blood 2+ (Negative) A 02/16/24 17: Urine Nitrate Negative (Negative) 02/16/24 17:31 Urine Bilirubin Negative (Negative) 02/16/24 17:31 Urine Urobilinogen 1.0 mg/dL (Negative) 02/16/24 17:31 Ur Leukocyte Esterase Negative (Negative) 02/16/24 17:31 Urine RBC 11-20 /hpf (0-2) H 02/16/24 17:31 Urine WBC 0-5 /hpf (0-5) 02/16/24 17:31 Ur Squamous Epith Cells 0-5 /hpf (0-5) 02/16/24 17:31 Amorphous Sediment Not Reportable 02/16/24 17:31 Urine Bacteria None seen /hpf (NONE) 02/16/24 17:31 Hyaline Casts 3.71 /lpf 02/16/24 17:31 Discharge Plan Discharge Patient Disposition: Home Clinical Impression: Chest pain Qualifiers: Chest pain type: unspecified Qualified Code(s): R07.9 - Chest pain, unspecified Diabetes Qualifiers: Diabetes mellitus type: type 2 Diabetes mellitus long term acute care registered nurse insulin use: with snf use Diabetes mellitus complication status: without complication Q ualified Code(s): E11.9 - Type 2 diabetes mellitus without complications Condition: Stable Prescriptions: No Action Tresiba FlexTouch U-100 100 unit/mL (3 mL) insulin pen 42 unit SUBCUT BID insulin lispro [Humalog KwikPen Insulin] 100 unit/mL insulin pen 30 unit SUBCUT TID Eliquis 5 mg tablet 5 mg PO BID Qty: 180 3RF latanoprost 0.005 % drops 1 drp ophthalmic (eye) DAILY ondansetron HCl 4 mg tablet 4 mg PO .q 4 hr PRN (Reason: Nausea And Vomiting) prochlorperazine maleate 10 mg tablet 10 mg PO Q8H PRN (Reason: Nausea And Vomiting) ferrous sulfate 325 mg (65 mg iron) tablet 325 mg PO BID letrozole 2.5 mg tablet 2.5 mg PO DAILY (DME) Gold Reclaimer brace See Rx Instructions .Route .MEDSUPPLY Qty: 1 0RF Rx Instructions: As directed clopidogrel 75 mg tablet See Rx Instructions .ROUTE .COMPLEX Qty: 90 3RF Dose Instruction: TAKE 1 TABLET BY MOUTH EVERY DAY Rx Instructions: TAKE 1 TABLET BY MOUTH EVERY DAY diltiazem HCl 120 mg capsule,extended release 24hr See Rx Instructions .ROUTE .COMPLEX Qty: 90 3RF Dose Instruction: TAKE 1 CAPSULE BY MOUTH EVERY DAY Rx Instructions: TAKE 1 CAPSULE BY MOUTH EVERY DAY allopurinol 100 mg tablet 100 mg PO DAILY@0700 gabapentin 300 mg capsule 300 mg PO TID@07,12,19 polyethylene glycol 3350 17 gram/dose powder 17 g PO DAILY PRN (Reason: Constipation) pantoprazole 40 mg tablet,delayed release (DR/EC) 40 mg PO QAM hydrocodone-acetaminophen 5-325 mg tablet 1 tab PO Q8H PRN (Reason: pain) Qty: 14 0RF nystatin [Klayesta] 100,000 unit/gram powder 1 applic TOPICAL BID duloxetine 60 mg capsule,delayed release(DR/EC) 60 mg PO DAILY metoprolol tartrate 50 mg Tablet 100 mg PO BID Qty: 120 0RF tramadol 50 mg tablet 50 mg PO BID PRN (Reason: Pain) clonidine HCl 0.3 mg tablet 0.3 mg PO TID aspirin 81 mg tablet,delayed release (DR/EC) 81 mg PO DAILY rosuvastatin 20 mg tablet 20 mg PO BEDTIME Discharge Orders: Discharge ED (Routine); Ordered 02/16/24 Ordered By: Pawan Cruz Referrals: Jeanine Solares MD [Primary Care Provider] - 1 week Patient Instructions: Chest Pain (ED) Activity Restrictions/Additional Instructions: Thank you for choosing [facility] for your healthcare needs today. Please realize that you were seen in the emergency department and that we are providing you with an emergency medical screening exam and this may not be a complete and all exclusive of all testing and/or medical workup we may need to determine your element or severity of your illness. It is very important that you follow-up as instructed with your primary care provider or specialist for the additional evaluation and to discuss your medical treatment plan. You may return to the emergency department should you have concerns or if your condition changes or worsens in any way. Coding Level of Care Code ED [employer] for [place] Daily Documented by User: Pawan Cruz DO 02/16/24 20:21 HPI - Chest Pain 2 General: Chief Complaint: Chest Pain Stated Complaint: Chest Pain Time Seen by Provider: 02/16/24 16:47 History of Present Illness: Patient presents to the ER by EMS for left-sided chest pain that started today. Patient stated the pain went down her left arm. Rated a 7 out of 10 prior to the nitro. After 1 nitro patient is pain-free. Patient also received 324 mg aspirin and approximately 200 mL of fluid by EMS. Upon arrival patient's blood glucose is 491, patient admitted to not dosing her insulin correctly yesterday and today and eating [place] food. Related Data Home Medications Medication Instructions Recorded Confirmed allopurinol 100 mg tablet 100 mg PO DAILY@0700 04/25/19 02/02/24 gabapentin 300 mg capsule 300 mg PO TID@07,12,19 04/25/19 02/02/24 polyethylene glycol 3350 17 17 g PO DAILY PRN Constipation 04/25/19 02/02/24 gram/dose oral powder insulin degludec 100 unit/mL (3 42 unit SUBCUT BID 09/06/20 02/02/24 mL) subcutaneous pen (Tresiba FlexTouch U-100 insulin) insulin lispro 100 unit/mL 30 unit SUBCUT TID 07/30/21 02/02/24 subcutaneous pen (Humalog KwikPen (U-100) Insulin) tramadol 50 mg tablet 50 mg PO BID PRN Pain 09/02/22 02/02/24 pantoprazole 40 mg tablet,delayed 40 mg PO QAM 10/15/22 02/02/24 release aspirin 81 mg tablet,delayed 81 mg PO DAILY 06/15/23 02/02/24 release clonidine HCl 0.3 mg tablet 0.3 mg PO TID 06/15/23 02/02/24 rosuvastatin 20 mg tablet 20 mg PO BEDTIME 06/15/23 02/02/24 ferrous sulfate 325 mg (65 mg 325 mg PO BID 12/23/23 02/02/24 iron) tablet latanoprost 0.005 % eye drops 1 drp ophthalmic (eye) DAILY 12/23/23 02/02/24 letrozole 2.5 mg tablet 2.5 mg PO DAILY 12/23/23 02/02/24 ondansetron HCl 4 mg tablet 4 mg PO .q 4 hr PRN Nausea And 12/23/23 02/02/24 Vomiting prochlorperazine maleate 10 mg 10 mg PO Q8H PRN Nausea And 12/23/23 02/02/24 tablet Vomiting duloxetine 60 mg capsule,delayed 60 mg PO DAILY 01/25/24 02/02/24 release nystatin 100,000 unit/gram topical 1 applic topical BID 01/25/24 02/02/24 powder (Klayesta) Previous Rx's Medication Instructions Recorded Gold Reclaimer brace #1 ea 08/18/22 apixaban 5 mg tablet (Eliquis) 5 mg PO BID #180 tabs 01/22/23 hydrocodone 5 mg-acetaminophen 325 1 tab PO Q8H PRN pain #14 tabs 06/03/23 mg tablet metoprolol tartrate 50 mg tablet 100 mg (2 x 50 mg) PO BID #120 tabs 01/28/24 clopidogrel 75 mg tablet See Rx Instructions .Route 02/11/24 .COMPLEX #90 tabs diltiazem HCl 120 mg See Rx Instructions .Route 02/15/24 capsule,extended release 24 hr .COMPLEX #90 caps Allergies Allergy/AdvReac Type Severity Reaction Status Date / Time dapagliflozin [From Farxiga] Allergy Intermediate ADR-Itching Verified 02/02/24 15:15 empagliflozin Allergy Intermediate ADR-Itching Verified 02/02/24 15:15 [From Jardiance] anastrozole Allergy ALGY-Joint Verified 02/02/24 15:15 Pain PFSH ED 2 PFSH: Medical History CKD (chronic kidney disease) Atherosclerosis of coronary artery of [place] heart without angina pectoris Peripheral arterial disease Lower extremity edema Leg pain Chronic venous insufficiency Chronic obstructive pulmonary disease Atrial fibrillation, chronic Diastolic heart failure Anemia Screen for colon cancer History of breast cancer Diabetes Hypertension Surgical History History of esophagogastroduodenoscopy (EGD) (~08/2019) dr. deann om. History of colonoscopy with polypectomy (~08/2019) brandan david. History of carpal tunnel release of both wrists History of coronary angioplasty with insertion of stent History of coronary artery balloon dilation History of lumpectomy Family History Father CAD (coronary artery disease), Onset Age: 50 Cancer Diabetes Hyperlipidemia Hypertension Lung disease Denies family history of Clotting disorder Dementia Psychiatric illness Chronic kidney disease (CKD) Suicide Anesthesia complication Bleeding disorder Stroke Social History Smoking and tobacco/nicotine status: former use of tobacco/nicotine Quit status (tobacco/nicotine): has quit using Year quit tobacco: 2016 - 2PPD x 40 Years Alcohol intake: never Substance/Drug Use: never Lives independently: Yes Household members: spouse Marital status: Current occupational status: retired Do you think of yourself as: Straight/Heterosexual Current gender identity: Female Course 2 Vital Signs: Vital signs: Vital Signs Temperature 98.2 F 02/16/24 16:47 Pulse Rate 66 02/16/24 20:26 Respiratory Rate 20 H 02/16/24 20:26 Blood Pressure 165/81 02/16/24 20:26 Pulse Oximetry 92 02/16/24 20:26 Oxygen Delivery Me thod Room Air 02/16/24 16:47 MDM - Chest Pain Medical Decision Making Patient transferred over myself at shift change waiting on lab work to come back. Once lab work is back troponins are stable, patient is give another 10 units of IV insulin to help her blood sugar come down. It was 491 and eventually work its way down to approximately 304, these results was discussed with the patient patient be discharged home. Lab Data 02/16/24 16:53 02/16/24 16:53 Radiology Impressions Chest X-Ray 02/16/24 16:48 IMPRESSION: No acute findings. Laboratory Results WBC 10.38 10^3/uL (3.29-11.43) 02/16/24 16:53 RBC 4.15 10^6/uL (3.85-5.65) 02/16/24 16:53 Hgb 11.50 g/dL (11.27-16.99) 02/16/24 16:53 Hct 36.1 % (36-47) 02/16/24 16:53 MCV 87.0 fl (85-98) 02/16/24 16:53 MCH 27.7 pg (27-33) 02/16/24 16:53 MCHC 31.9 g/dL (30-55) 02/16/24 16:53 RDW 15.2 % (12.1-15.1) H 02/16/24 16:53 Plt Count 253 10^3/cmm (157-399) 02/16/24 16:53 MPV 9.9 fL (7.4-10.4) 02/16/24 16:53 Neut % (Auto) 81.4 % 02/16/24 16:53 Lymph % (Auto) 12.8 % 02/16/24 16:53 [place] % (Auto) 4.5 % 02/16/24 16:53 Eos % (Auto) 0.6 % 02/16/24 16:53 Baso % (Auto) 0.4 % 02/16/24 16:53 Neut # (Auto) 8.45 10^3/uL (1.8-7.7) H 02/16/24 16:53 Lymph # (Auto) 1.3 10^3/uL (0.8-4.8) 02/16/24 16:53 [place] # (Auto) 0.5 10^3/uL (0.2-0.9) 02/16/24 16:53 Eos # (Auto) 0.1 10^3/uL (0.0-0.8) 02/16/24 16:53 Baso # (Auto) 0.0 10^3/uL (0.0-0.1) 02/16/24 16:53 Nucleated RBC % (auto) 0 % 02/16/24 16:53 Nucleated RBCs # 0.0 /100WBC 02/16/24 16:53 Sodium 136 mmol/L (136-145) 02/16/24 16:53 Potassium 3.6 mmol/L (3.5-5.1) 02/16/24 16:53 Chloride 97 mmol/L (98-107) L 02/16/24 16:53 Carbon Dioxide 28 mmol/L (22-29) 02/16/24 16:53 Anion Gap 14.6 (5-19) 02/16/24 16:53 BUN 20 mg/dL (8-23) 02/16/24 16:53 Creatinine 0.8 mg/dL (0.5-0.9) 02/16/24 16:53 GFR Calculation 71.3 mL/min (90-130) L 02/16/24 16:53 Glucose 431 mg/dL (65-115) H 02/16/24 16:53 POC Glucose 308 mg/dL (70-110) H 02/16/24 20:05 Calculated Osmolality 303 mOsm/kg (285-295) H 02/16/24 16:53 Calcium 9.6 mg/dL (8.5-10.5) 02/16/24 16:53 Total Bilirubin 0.4 mg/dL (0.15-1.2) 02/16/24 16:53 AST 12 U/L (0-32) 02/16/24 16:53 ALT 11 U/L (0-33) 02/16/24 16:53 Alkaline Phosphatase 121 U/L (35-105) H 02/16/24 16:53 Troponin T Baseline 30 ng/L (0-10) H 02/16/24 16:53 Troponin T 120 Minute 27.92 ng/L (0-10) H 02/16/24 18:40 Delta Troponin T -2.08 ABS# (0-10) L 02/16/24 18:40 Total Protein 6.4 g/dL (6.6-8.7) L 02/16/24 16:53 Albumin 3.4 g/dL (3.5-5.2) L 02/16/24 16:53 Globulin 3.0 g/dL (1.3-4.6) 02/16/24 16:53 Urine Color Yellow (Yellow) 02/16/24 17:31 Urine Appearance Clear (CLEAR) 02/16/24 17:31 Urine pH 6.0 (5-7) 02/16/24 17:31 Ur Specific [place] 1.023 (1.005-1.030) 02/16/24 17:31 Urine Protein 4+ (Negative) A 02/16/24 17: Urine Glucose (UA) 3+ (Normal) H 02/16/24 17:31 Urine Ketones Negative (Negative) 02/16/24 17:31 Urine Blood 2+ (Negative) A 02/16/24 17: Urine Nitrate Negative (Negative) 02/16/24 17: Urine Bilirubin Negative (Negative) 02/16/24 17:31 Urine Urobilinogen 1.0 mg/dL (Negative) 02/16/24 17:31 Ur Leukocyte Esterase Negative (Negative) 02/16/24 17:31 Urine RBC 11-20 /hpf (0-2) H 02/16/24 17:31 Urine WBC 0-5 /hpf (0-5) 02/16/24 17:31 Ur Squamous Epith Cells 0-5 /hpf (0-5) 02/16/24 17:31 Amorphous Sediment Not Reportable 02/16/24 17:31 Urine Bacteria None seen /hpf (NONE) 02/16/24 17:31 Hyaline Casts 3.71 /lpf 02/16/24 17:31 All radiology interpretation(s) finalized by discharge Discharge Plan Discharge Patient Disposition: Home Clinical Impression: Chest pain Qualifiers: Chest pain type: unspecified Qualified Code(s): R07.9 - Chest pain, unspecified Diabetes Qualifiers: Diabetes mellitus type: type 2 Diabetes mellitus snf insulin use: with long term acute care registered nurse use Diabetes mellitus complication status: without complication Q ualified Code(s): E11.9 - Type 2 diabetes mellitus without complications Condition: Stable Prescriptions: No Action Tresiba FlexTouch U-100 100 unit/mL (3 mL) insulin pen 42 unit SUBCUT BID insulin lispro [Humalog KwikPen Insulin] 100 unit/mL insulin pen 30 unit SUBCUT TID Eliquis 5 mg tablet 5 mg PO BID Qty: 180 3RF latanoprost 0.005 % drops 1 drp ophthalmic (eye) DAILY ondansetron HCl 4 mg tablet 4 mg PO .q 4 hr PRN (Reason: Nausea And Vomiting) prochlorperazine maleate 10 mg tablet 10 mg PO Q8H PRN (Reason: Nausea And Vomiting) ferrous sulfate 325 mg (65 mg iron) tablet 325 mg PO BID letrozole 2.5 mg tablet 2.5 mg PO DAILY (DME) Gold Reclaimer brace See Rx Instructions .Route .MEDSUPPLY Qty: 1 0RF Rx Instructions: As directed clopidogrel 75 mg tablet See Rx Instructions .ROUTE .COMPLEX Qty: 90 3RF Dose Instruction: TAKE 1 TABLET BY MOUTH EVERY DAY Rx Instructions: TAKE 1 TABLET BY MOUTH EVERY DAY diltiazem HCl 120 mg capsule,extended release 24hr See Rx Instructions .ROUTE .COMPLEX Qty: 90 3RF Dose Instruction: TAKE 1 CAPSULE BY MOUTH EVERY DAY Rx Instructions: TAKE 1 CAPSULE BY MOUTH EVERY DAY allopurinol 100 mg tablet 100 mg PO DAILY@0700 gabapentin 300 mg capsule 300 mg PO TID@07,12,19 polyethylene glycol 3350 17 gram/dose powder 17 g PO DAILY PRN (Reason: Constipation) pantoprazole 40 mg tablet,delayed release (DR/EC) 40 mg PO QAM hydrocodone-acetaminophen 5-325 mg tablet 1 tab PO Q8H PRN (Reason: pain) Qty: 14 0RF nystatin [Klayesta] 100,000 unit/gram powder 1 applic TOPICAL BID duloxetine 60 mg capsule,delayed release(DR/EC) 60 mg PO DAILY metoprolol tartrate 50 mg Tablet 100 mg PO BID Qty: 120 0RF tramadol 50 mg tablet 50 mg PO BID PRN (Reason: Pain) clonidine HCl 0.3 mg tablet 0.3 mg PO TID aspirin 81 mg tablet,delayed release (DR/EC) 81 mg PO DAILY rosuvastatin 20 mg tablet 20 mg PO BEDTIME Discharge Orders: Discharge ED (Routine); Ordered 02/16/24 Ordered By: Pawan Cruz Referrals: Jeanine Solares MD [Primary Care Provider] - 1 week Patient Instructions: Chest Pain (ED) Activity Restrictions/Additional Instructions: Thank you for choosing [facility] for your healthcare needs today. Please realize that you were seen in the emergency department and that we are providing you with an emergency medical screening exam and this may not be a complete and all exclusive of all testing and/or medical workup we may need to determine your element or severity of your illness. It is very important that you follow-up as instructed with your primary care provider or specialist for the additional evaluation and to discuss your medical treatment plan. You may return to the emergency department should you have concerns or if your condition changes or worsens in any way. Coding Level of Care Code ED [employer] for [place]
[2024-02-16 16:58] LABS: Glucose Point of Care 437 mg/dL (70-110)
[2024-02-16 17:01] LABS: Basophils % 0.4 %; Eosinophils # 0.1 10^3/uL (0.0-0.8); Eosinophils % 0.6 %; Hematocrit 36.1 % (36-47); Lymphocytes # 1.3 10^3/uL (0.8-4.8); Lymphocytes % 12.8 %; Mean Corpuscular HGB Conc 31.9 g/dL (30-55); Mean Corpuscular Hemoglobin 27.7 pg (27-33); Mean Platelet Volume 9.9 fL (7.4-10.4); Monocytes # 0.5 10^3/uL (0.2-0.9); Monocytes % 4.5 %; Neutrophils # 8.45 10^3/uL (1.8-7.7); Neutrophils % 81.4 %; Nucleated Red Blood Cells % 0 %; Platelet Count 253 10^3/cmm (157-399); Red Blood Count 4.15 10^6/uL (3.85-5.65); Red Cell Distribution Width 15.2 % (12.1-15.1); White Blood Count 10.38 10^3/uL (3.29-11.43)
[2024-02-16 17:22] LABS: Troponin(5th) Baseline 30 ng/L (0-10)
[2024-02-16 17:24] LABS: Alanine Aminotransferase 11 U/L (0-33); Albumin Level 3.4 g/dL (3.5-5.2); Alkaline Phosphatase 121 U/L (35-105); Anion Gap 14.6 (5-19); Aspartate Amino Transferase 12 U/L (0-32); Blood Urea Nitrogen 20 mg/dL (8-23); Calcium 9.6 mg/dL (8.5-10.5); Carbon Dioxide 28 mmol/L (22-29); Chloride 97 mmol/L (98-107); Creatinine Clr Calc Pharmacy 90.6245; Glomerular Filtration Rate 71.3 mL/min (90-130); Glucose 431 mg/dL (65-115); Osmolality Calculated 303 mOsm/kg (285-295); Potassium 3.6 mmol/L (3.5-5.1); Sodium 136 mmol/L (136-145); Total Bilirubin 0.4 mg/dL (0.15-1.2); Total Protein 6.4 g/dL (6.6-8.7)
[2024-02-16 18:02] LABS: Bilirubin Urine Negative (Negative); Blood Urine 2+ (Negative); Glucose Urine UA 3+ (Normal); Ketones Urine Negative (Negative); Leukocyte Esterase Urine Negative (Negative); Nitrate Urine Negative (Negative); Protein Urine 4+ (Negative); Specific Gravity, Urine 1.023 (1.005-1.030); Urine Appearance Clear (CLEAR); Urine Color Yellow (Yellow)
[2024-02-16 18:07] LABS: Add Urine Microscopic? YES; Bacteria Urine None Seen /hpf; Hyaline Casts Urine 3.71 /lpf; Squamous Epithelial Cell Urine 0-5 /hpf (0-5); WBC Urine 0-5 /hpf (0-5)
[2024-02-16 18:15] LABS: Add Urine Culture? Yes
--- NOTE | 2024-02-16 18:39 | ECG_ITS ---
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 Measurements Intervals [place] Rate: 70 P: 62 MS: 191 QRS: -24 QRSD: 159 T: 22 QT: 428 QTc: 464 Interpretive Statements SINUS RHYTHM RIGHT BUNDLE BRANCH BLOCK [120+ ms QRS DURATION, UPRIGHT V1, 40+ ms S IN I/aVL/V4/V5/V6] POSSIBLE SEPTAL MYOCARDIAL INFARCTION , OF INDETERMINATE AGE [30 ms Q WAVE IN V1/V2] MODERATE T-WAVE ABNORMALITY, CONSIDER LATERAL ISCHEMIA [-0.1+ mV T-WAVE IN I/aVL/V5/V6] Compared to ECG 02/16/2024 16:50:30 Left-axis deviation no longer present Myocardial infarct finding still present T-wave abnormality still present Possible ischemia still present Electronically Signed On 02-18-2024 12:37:18 REAL ESTATE TRANSACTION COORDINATOR by Tom Argueta M.D. [id number]
[2024-02-16 18:41] LABS: Glucose Point of Care 426 mg/dL (70-110)
[2024-02-16] MEDS: insulin regular-human 100 units/1 mL 10 UNIT IVP (19:07)
[2024-02-16 19:09] LABS: Troponin 5 2HR 27.92 ng/L (0-10)
[2024-02-16 19:10] LABS: Troponin 5 2HR Delta -2.08 ABS# (0-10)
[2024-02-16 19:15] LABS: Glucose Point of Care 393 mg/dL (70-110)
[2024-02-16 20:07] LABS: Glucose Point of Care 308 mg/dL (70-110)
== END 2024-02-16 20:20 | disposition home or self-care (01) ==
PROVIDERS: Emergency Provider Family Medicine; PCP Internal Medicine
DX: R07.9 Chest pain, unspecified (principal); E11.22 Type 2 diabetes mellitus with diabetic chronic kidney disease; Z79.4 Long term (current) use of insulin; Z79.01 Long term (current) use of anticoagulants; Z79.02 Long term (current) use of antithrombotics/antiplatelets; Z79.82 Long term (current) use of aspirin; Z87.891 Personal history of nicotine dependence; Z85.3 Personal history of malignant neoplasm of breast; I25.10 Atherosclerotic heart disease of native coronary artery without angina pectoris; I13.0 Hypertensive heart and chronic kidney disease with heart failure and stage 1 through stage 4 chronic kidney disease, or unspecified chronic kidney disease; N18.9 Chronic kidney disease, unspecified; I50.30 Unspecified diastolic (congestive) heart failure
CPT/HCPCS: 36415; 36416; 71045; 80053; 81001; 82962; 84484; 85025; 87086; 93005; 96374; 99285; J1815

== ENCOUNTER → 2024-02-19 10:09 | Outpatient (BNVA) | payer MEDICARE, MEDICAID, SELFPAY | PROVIDERS: PCP Internal Medicine; Visit Provider Thoracic Surgery (Cardiothoracic Vascular Surgery) | DX: I87.2 Venous insufficiency (chronic) (peripheral) (principal); E11.52 Type 2 diabetes mellitus with diabetic peripheral angiopathy with gangrene; E11.622 Type 2 diabetes mellitus with other skin ulcer; L97.811 Non-pressure chronic ulcer of other part of right lower leg limited to breakdown of skin; L97.821 Non-pressure chronic ulcer of other part of left lower leg limited to breakdown of skin; E11.621 Type 2 diabetes mellitus with foot ulcer; L97.511 Non-pressure chronic ulcer of other part of right foot limited to breakdown of skin | CPT/HCPCS: 97597; 97598; A6253 ==

== ENCOUNTER → 2024-03-04 09:48 | Outpatient (BNVA) | payer MEDICARE, MEDICAID, SELFPAY | PROVIDERS: PCP Internal Medicine | DX: I87.2 Venous insufficiency (chronic) (peripheral) (principal); E11.52 Type 2 diabetes mellitus with diabetic peripheral angiopathy with gangrene; E11.622 Type 2 diabetes mellitus with other skin ulcer; L97.822 Non-pressure chronic ulcer of other part of left lower leg with fat layer exposed; L97.811 Non-pressure chronic ulcer of other part of right lower leg limited to breakdown of skin; Z09 Encounter for follow-up examination after completed treatment for conditions other than malignant neoplasm | CPT/HCPCS: 11042; 11045; 97597; 97598 ==

== ENCOUNTER → 2024-03-10 14:31 | Outpatient (BNVA) | payer MEDICARE, MEDICAID, SELFPAY | PROVIDERS: PCP Internal Medicine; Visit Provider Thoracic Surgery (Cardiothoracic Vascular Surgery) | DX: I87.2 Venous insufficiency (chronic) (peripheral) (principal); E11.622 Type 2 diabetes mellitus with other skin ulcer; L97.822 Non-pressure chronic ulcer of other part of left lower leg with fat layer exposed; L97.811 Non-pressure chronic ulcer of other part of right lower leg limited to breakdown of skin | CPT/HCPCS: 11042; 11045; 97597; 97598 ==

== ENCOUNTER 2024-03-14 12:23 | Inpatient (IN) | payer MEDICARE, MEDICAID, SELFPAY ==
[2024-03-14] VITALS (79 sets, daily range): BP systolic 150–185; BP diastolic 77–110; PULSE 102–126; RESP 9–26; TEMP 37.2; O2SAT 84–95; BMI 44.2
--- NOTE | 2024-03-14 12:33 | XR_ITS ---
WS: [email or web address] Exam: XR chest 1V portable [id number] Date/Time of Exam: 03/14/2024 12:35 PM Reason For Exam: cp Comparison 02/16/2024. Lungs are fully inflated and clear. Mild cardiac enlargement. No pleural effus ions. The mediastinum is normal in contour. Surgical clips along the LEFT axilla. XR/XR chest 1V portable [id number] IMPRESSION: 1. No acute cardiopulmonary finding.
--- NOTE | 2024-03-14 12:34 | ECG_ITS ---
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 Measurements Intervals [place] Rate: 121 P: 267 IN: 200 QRS: -44 QRSD: 177 T: 118 QT: 418 QTc: 594 Interpretive Statements ECTOPIC ATRIAL TACHYCARDIA LEFT AXIS DEVIATION [QRS AXIS < -30] RIGHT BUNDLE BRANCH BLOCK [120+ ms QRS DURATION, UPRIGHT V1, 40+ ms S IN I/aVL/V4/V5/V6] SEPTAL MYOCARDIAL INFARCTION , OF INDETERMINATE AGE [40+ ms Q WAVE IN V1/V2] MODERATE T-WAVE ABNORMALITY, CONSIDER INFERIOR ISCHEMIA [-0.1+ mV T-WAVE IN II/aVF] Compared to ECG 03/14/2024 12:31:29 T-wave abnormality now present Possible ischemia now present Myocardial infarct finding still present Electronically Signed On 03-17-2024 12:41:58 REFINISH TECHNICIAN by Tom Argueta M.D. [id number]
--- NOTE | 2024-03-14 12:35 | ECG_ITS ---
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 Measurements Intervals [place] Rate: 121 P: -89 SD: 196 QRS: -47 QRSD: 173 T: 85 QT: 367 QTc: 522 Interpretive Statements ECTOPIC ATRIAL TACHYCARDIA LEFT AXIS DEVIATION [QRS AXIS < -30] RIGHT BUNDLE BRANCH BLOCK [120+ ms QRS DURATION, UPRIGHT V1, 40+ ms S IN I/aVL/V4/V5/V6] SEPTAL MYOCARDIAL INFARCTION , OF INDETERMINATE AGE [40+ ms Q WAVE IN V1/V2] Compared to ECG 02/16/2024 18:39:41 Left-axis deviation now present Sinus rhythm no longer present T-wave abnormality no longer present Possible ischemia no longer present Myocardial infarct finding still present Electronically Signed On 03-17-2024 12:42:32 DONOR PROCESSOR by Tom Argueta M.D. [id number]
[2024-03-14 12:41] LABS: Basophils % 0.3 %; Eosinophils % 0.3 %; Hematocrit 40.6 % (36-47); Lymphocytes # 1.2 10^3/uL (0.8-4.8); Lymphocytes % 11.8 %; Mean Corpuscular HGB Conc 31.5 g/dL (30-55); Mean Corpuscular Hemoglobin 27.4 pg (27-33); Mean Corpuscular Volume 86.8 fl (85-98); Mean Platelet Volume 9.7 fL (7.4-10.4); Monocytes # 0.5 10^3/uL (0.2-0.9); Monocytes % 4.7 %; Neutrophils # 8.52 10^3/uL (1.8-7.7); Neutrophils % 82.7 %; Nucleated Red Blood Cells % 0 %; Platelet Count 297 10^3/cmm (157-399); Red Blood Count 4.68 10^6/uL (3.85-5.65); White Blood Count 10.29 10^3/uL (3.29-11.43)
--- NOTE | 2024-03-14 12:42 | ED_ITS ---
HPI - Chest Pain 2 General: Chief Complaint: Chest Pain Stated Complaint: chest pain Time Seen by Provider: 03/14/24 12:32 Source: patient and EMS Mode of arrival: EMS Limitations: no limitations History of Present Illness: 68-year-old female states that she had b een having some severe pressure pain in her chest this morning. States originally was an 8 out of 10 she given nitro and had nitro placed placed by EMS states her pain is completely resolved currently. She denies any dyspnea denies any cough. Associated symptoms: Deny abdominal pain, dyspnea, fever(s), nausea or vomiting Related Data Home Medications Medication Instructions Recorded Confirmed allopurinol 100 mg tablet 100 mg PO DAILY@0700 04/25/19 03/14/24 gabapentin 300 mg capsule 300 mg PO TID@07,12,19 04/25/19 03/14/24 insulin degludec 100 unit/mL (3 42 unit SUBCUT BID 09/06/20 03/14/24 mL) subcutaneous pen (Tresiba FlexTouch U-100 insulin) insulin lispro 100 unit/mL 30 unit SUBCUT TID 07/30/21 03/14/24 subcutaneous pen (Humalog KwikPen (U-100) Insulin) pantoprazole 40 mg tablet,delayed 40 mg PO QAM 10/15/22 03/14/24 release aspirin 81 mg tablet,delayed 81 mg PO DAILY 06/15/23 03/14/24 release clonidine HCl 0.3 mg tablet 0.3 mg PO TID 06/15/23 03/14/24 rosuvastatin 20 mg tablet 20 mg PO BEDTIME 06/15/23 03/14/24 ferrous sulfate 325 mg (65 mg 325 mg PO BID 12/23/23 03/14/24 iron) tablet latanoprost 0.005 % eye drops 1 drp ophthalmic (eye) DAILY 12/23/23 03/14/24 letrozole 2.5 mg tablet 2.5 mg PO DAILY 12/23/23 03/14/24 ondansetron HCl 4 mg tablet 4 mg PO .q 4 hr PRN Nausea And 12/23/23 03/14/24 Vomiting duloxetine 60 mg capsule,delayed 60 mg PO DAILY 01/25/24 03/14/24 release nystatin 100,000 unit/gram topical 1 applic topical BID 01/25/24 03/14/24 powder (Klayesta) clopidogrel 75 mg tablet 75 mg PO DAILY 03/14/24 03/14/24 diltiazem HCl 120 mg 120 mg PO DAILY 03/14/24 03/14/24 capsule,extended release 24 hr hydrocodone 7.5 mg-acetaminophen 1 tab PO Q8H 03/14/24 03/14/24 325 mg tablet Previous Rx's Medication Instructions Recorded Director Data Management brace #1 ea 08/18/22 apixaban 5 mg tablet (Eliquis) 5 mg PO BID #180 tabs 01/22/23 metoprolol tartrate 50 mg tablet 100 mg (2 x 50 mg) PO BID #120 tabs 01/28/24 Allergies Allergy/AdvReac Type Severity Reaction Status Date / Time dapagliflozin [From [facility]] Allergy Intermediate ADR-Itching Verified 02/02/24 15:15 empagliflozin Allergy Intermediate ADR-Itching Verified 02/02/24 15:15 [[facility] anastrozole Allergy ALGY-Joint Verified 02/02/24 15:15 Pain Review of Systems 2 Const: Denies: fever(s), chills, body aches or change in appetite ENMT: Denies: throat pain or dental pain Card: Reports: chest pain Resp: Denies: dyspnea GI: Denies: abdominal pain, nausea, vomiting or diarrhea Musc: Denies: neck pain or back pain Skin/Breast: Denies: rash Neuro: Denies: headache(s) PFSH ED 2 PFSH: Medical History CKD (chronic kidney disease) Atherosclerosis of coronary artery of [place] heart without angina pectoris Peripheral arterial disease Lower extremity edema Leg pain Chronic venous insufficiency Chronic obstructive pulmonary disease Atrial fibrillation, chronic Diastolic heart failure Anemia Screen for colon cancer History of breast cancer Diabetes Hypertension Surgical History History of esophagogastroduodenoscopy (EGD) (~08/2019) dr. deann om. History of colonoscopy with polypectomy (~08/2019) brandan david. History of carpal tunnel release of both wrists History of coronary angioplasty with insertion of stent History of coronary artery balloon dilation History of lumpectomy Family History Father CAD (coronary artery disease), Onset Age: 50 Cancer Diabetes Hyperlipidemia Hypertension Lung disease Denies family history of Clotting disorder Dementia Psychiatric illness Chronic kidney disease (CKD) Suicide Anesthesia complication Bleeding disorder Stroke Social History Smoking and tobacco/nicotine status: former use of tobacco/nicotine Quit status (tobacco/nicotine): has quit using Year quit tobacco: 2016 - 2PPD x 40 Years Alcohol intake: never Substance/Drug Use: never Lives independently: Yes Household members: spouse Marital status: Current occupational status: retired Do you think of yourself as: Straight/Heterosexual Current gender identity: Female Physical Exam 2 Const: COMMON NORMALS: patient oriented x3 HENMT: COMMON NORMALS: normocephalic and atraumatic HEAD & SCALP: n ormocephalic and atraumatic Neck/C-Spine: COMMON NORMALS: full ROM and supple Chest: COMMONS NORMALS: normal inspection of the chest Resp: COMMON NORMALS: normal respiratory effort, No retractions, No use of accessory muscles and clear to auscultation bilaterally AUSCULTATION: clear to auscultation bilaterally Cardio: COMMON NORMALS: regular rhythm and No murmurs present (Cardio) R ATE: tachycardic RHYTHM: regular rhythm GI: COMMON NORMALS: Normal to inspection, nondistended, normoactive bowel sounds present, Soft to palpation, non-tender and no masses PALPATION: Yes Soft to palpation Extremity: COMMON NORMALS: normal to inspection and full ROM Neuro: COMMON NORMALS: patient oriented x3, moves all extremities and no focal motor deficits Psych: COMMON NORMALS: mental status grossly normal, Normal thought process present and cooperative THOUGHT PROCESS: Normal thought process present Skin: COMMON NORMALS: no rashes or lesions noted and no wounds GENERAL SKIN EXAM: no rashes or lesions noted Course 2 Vital Signs: Vital signs: Vital Signs Temperature 98.9 F 03/14/24 12:25 Pulse Rate 121 H 03/14/24 14:00 Respiratory Rate 16 03/14/24 14:00 Blood Pressure 174/110 03/14/24 14:00 Pulse Oximetry 92 03/14/24 14:00 Oxygen Delivery Me thod Room Air 03/14/24 14:00 MDM - Chest Pain Medical Decision Making Patient presents here with chest pain along with atrial flutter she has been tachycardic here did start her on a Cardizem drip she is been pain-free while here no signs of ST elevation on her EKG EKG is unchanged from previous EKGs will admit at this time on the Cardizem drip Medical Records I reviewed the patient's medical records. Lab Data I reviewed the patient's lab results. 03/14/24 12:33 03/14/24 12:33 Radiology Impressions Chest X-Ray 03/14/24 12:33 IMPRESSION: 1. No acute cardiopulmonary finding. Laboratory Results WBC 10.29 10^3/uL (3.29-11.43) 03/14/24 12:33 RBC 4.68 10^6/uL (3.85-5.65) 03/14/24 12:33 Hgb 12.80 g/dL (11.27-16.99) 03/14/24 12:33 Hct 40.6 % (36-47) 03/14/24 12:33 MCV 86.8 fl (85-98) 03/14/24 12:33 MCH 27.4 pg (27-33) 03/14/24 12:33 MCHC 31.5 g/dL (30-55) 03/14/24 12:33 RDW 16.0 % (12.1-15.1) H 03/14/24 12:33 Plt Count 297 10^3/cmm (157-399) 03/14/24 12:33 MPV 9.7 fL (7.4-10.4) 03/14/24 12:33 Neut % (Auto) 82.7 % 03/14/24 12:33 Lymph % (Auto) 11.8 % 03/14/24 12:33 Cascade % (Auto) 4.7 % 03/14/24 12:33 Eos % (Auto) 0.3 % 03/14/24 12:33 Baso % (Auto) 0.3 % 03/14/24 12:33 Neut # (Auto) 8.52 10^3/uL (1.8-7.7) H 03/14/24 12:33 Lymph # (Auto) 1.2 10^3/uL (0.8-4.8) 03/14/24 12:33 Cascade # (Auto) 0.5 10^3/uL (0.2-0.9) 03/14/24 12:33 Eos # (Auto) 0.0 10^3/uL (0.0-0.8) 03/14/24 12:33 Baso # (Auto) 0.0 10^3/uL (0.0-0.1) 03/14/24 12:33 Nucleated RBC % (auto) 0 % 03/14/24 12:33 Nucleated RBCs # 0.0 /100WBC 03/14/24 12:33 Sodium 139 mmol/L (136-145) 03/14/24 12:33 Potassium 3.2 mmol/L (3.5-5.1) L 03/14/24 12:33 Chloride 99 mmol/L (98-107) 03/14/24 12:33 Carbon Dioxide 24 mmol/L (22-29) 03/14/24 12:33 Anion Gap 19.2 (5-19) H 03/14/24 12:33 BUN 12 mg/dL (8-23) 03/14/24 12:33 Creatinine 0.7 mg/dL (0.5-0.9) 03/14/24 12:33 GFR Calculation 83.2 mL/min (90-130) L 03/14/24 12:33 Glucose 267 mg/dL (65-115) H 03/14/24 12:33 Calculated Osmolality 297 mOsm/kg (285-295) H 03/14/24 12:33 Calcium 8.5 mg/dL (8.5-10.5) 03/14/24 12:33 Total Bilirubin 0.2 mg/dL (0.15-1.2) 03/14/24 12:33 AST 25 U/L (0-32) 03/14/24 12:33 ALT 20 U/L (0-33) 03/14/24 12:33 Alkaline Phosphatase 121 U/L (35-105) H 03/14/24 12:33 Troponin T Baseline 44 ng/L (0-10) H 03/14/24 12:33 Total Protein 5.8 g/dL (6.6-8.7) L 03/14/24 12:33 Albumin 3.1 g/dL (3.5-5.2) L 03/14/24 12:33 Globulin 2.7 g/dL (1.3-4.6) 03/14/24 12:33 Lipase 16 U/L (13-60) 03/14/24 12:33 All radiology interpretation(s) finalized by discharge Discharge Plan Discharge Patient Disposition: Admitted As Inpatient Clinical Impression: Chest pain, Atrial fibrillation/flutter Condition: Stable Prescriptions: No Action Tresiba FlexTouch U-100 100 unit/mL (3 mL) insulin pen 42 unit SUBCUT BID insulin lispro [Humalog KwikPen Insulin] 100 unit/mL insulin pen 30 unit SUBCUT TID Eliquis 5 mg tablet 5 mg PO BID Qty: 180 3RF latanoprost 0.005 % drops 1 drp ophthalmic (eye) DAILY ondansetron HCl 4 mg tablet 4 mg PO .q 4 hr PRN (Reason: Nausea And Vomiting) ferrous sulfate 325 mg (65 mg iron) tablet 325 mg PO BID letrozole 2.5 mg tablet 2.5 mg PO DAILY (DME) Director Data Management brace See Rx Instructions .Route .MEDSUPPLY Qty: 1 0RF Rx Instructions: As directed allopurinol 100 mg tablet 100 mg PO DAILY@0700 gabapentin 300 mg capsule 300 mg PO TID@07,12,19 pantoprazole 40 mg tablet,delayed release (DR/EC) 40 mg PO QAM nystatin [Klayesta] 100,000 unit/gram powder 1 applic TOPICAL BID duloxetine 60 mg capsule,delayed release(DR/EC) 60 mg PO DAILY metoprolol tartrate 50 mg Tablet 100 mg PO BID Qty: 120 0RF clonidine HCl 0.3 mg tablet 0.3 mg PO TID aspirin 81 mg tablet,delayed release (DR/EC) 81 mg PO DAILY rosuvastatin 20 mg tablet 20 mg PO BEDTIME hydrocodone-acetaminophen 7.5-325 mg tablet 1 tab PO Q8H clopidogrel 75 mg tablet 75 mg PO DAILY Rx Instructions: TAKE 1 TABLET BY MOUTH EVERY DAY diltiazem HCl 120 mg capsule,extended release 24hr 120 mg PO DAILY Rx Instructions: TAKE 1 CAPSULE BY MOUTH EVERY DAY Referrals: Jeanine Solares MD [Primary Care Provider] - Coding Level of Care Code ED Business Intelligence Engineer for Chg Daily
[2024-03-14] MEDS: labetalol 5 mg/mL SDV 20mL 10 MG IVP (12:59)
[2024-03-14 13:01] LABS: Troponin(5th) Baseline 44 ng/L (0-10)
[2024-03-14 13:04] LABS: Alanine Aminotransferase 20 U/L (0-33); Albumin Level 3.1 g/dL (3.5-5.2); Alkaline Phosphatase 121 U/L (35-105); Anion Gap 19.2 (5-19); Aspartate Amino Transferase 25 U/L (0-32); Blood Urea Nitrogen 12 mg/dL (8-23); Calcium 8.5 mg/dL (8.5-10.5); Carbon Dioxide 24 mmol/L (22-29); Chloride 99 mmol/L (98-107); Creatinine Clr Calc Pharmacy 90.6245; Globulin 2.7 g/dL (1.3-4.6); Glomerular Filtration Rate 83.2 mL/min (90-130); Glucose 267 mg/dL (65-115); Lipase 16 U/L (13-60); Osmolality Calculated 297 mOsm/kg (285-295); Potassium 3.2 mmol/L (3.5-5.1); Sodium 139 mmol/L (136-145); Total Bilirubin 0.2 mg/dL (0.15-1.2); Total Protein 5.8 g/dL (6.6-8.7)
[2024-03-14] MEDS: sodium chloride 0.9% 1,000 ML 999 ML IV (13:10)
[2024-03-14] MEDS: dilTIAZem 5 mg/mL SDV 5 mL 10 MG IVP (13:59)
--- NOTE | 2024-03-14 14:34 | ECG_ITS ---
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 Measurements Intervals [place] Rate: 120 P: 0 TN: 0 QRS: -43 QRSD: 159 T: 53 QT: 370 QTc: 525 Interpretive Statements ATRIAL FLUTTER WITH RAPID VENTRICULAR RESPONSE LEFT AXIS DEVIATION [QRS AXIS < -30] RIGHT BUNDLE BRANCH BLOCK [120+ ms QRS DURATION, UPRIGHT V1, 40+ ms S IN I/aVL/V4/V5/V6] SEPTAL MYOCARDIAL INFARCTION , OF INDETERMINATE AGE [40+ ms Q WAVE IN V1/V2] Compared to ECG 03/14/2024 12:36:31 T-wave abnormality no longer present Possible ischemia no longer present Myocardial infarct finding still present Electronically Signed On 03-19-2024 13:54:39 SOFTBALL PLAYER by Tom Argueta M.D. [id number]
--- NOTE | 2024-03-14 15:19 | XR_ITS ---
WS: [email or web address] Exam: XR tibia fibula LT 2V [id number] Date/Time of Exam: 03/14/2024 3:24 PM Reason For Exam: swelling No fracture or dislocation. 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 Venous and arterial vascular calcifications not ed in the lower leg. XR/XR tibia fibula LT 2V [id number] IMPRESSION: 1. No bony injury. Marked DJD at the knee. 2. Arterial and venous calcifications in the lower leg.
--- NOTE | 2024-03-14 15:19 | XR_ITS ---
WS: [email or web address] Exam: XR tibia fibula RT 2V [id number] Date/Time of Exam: 03/14/2024 3:24 PM Reason For Exam: swelling Exam: XR tibia fibula RT 2V [id number] Date/Time of Exam: 03/14/2024 3:24 PM Reason For Exam: swelling No fracture or bone destruction noted. Moderately advanced degenerative change at the knee. Soft tiss ue calcification seen in the lower aspect of the tibia and fibula most likely secondary to venous ins ufficiency. XR/XR tibia fibula RT 2V [id number] IMPRESSION: 1. No fracture or bone destruction. 2. Soft tissue calcifications suggesting venous insufficiency. Also arterial ca lcifications noted in the lower leg.
[2024-03-14] MEDS: dilTIAZem 100 MG in sodium chloride 0.9% (add-van) 100 ML IV (15:27)
--- NOTE | 2024-03-14 15:33 | CTR_ITS ---
PROCEDURE INFORMATION: Exam: CTA Chest With Contrast Exam date and time: 03/14/2024 4:35 PM Age: 68 years old Clinical indication: Pain; Chest pressure; Additional info: Lung mass, chest pain, history of breast cancer TECHNIQUE: Imaging protocol: Computed tomographic angiography of the chest with contrast. Exam focused on the arteries. 3D rendering (Not supervised by radiologist): MIP and/or 3D reconstructed images were created by the technologist. Radiation optimization: All CT scans at this facility use at least one of these dose optimization techniques: automated exposure control; mA and/or kV adjustment per patient size (includes targeted exams where dose is matched to clinical indication); or iterative reconstruction. Contrast material: OMNIPAQUE 350; Contrast volume: 100 ml; Contrast route: INTRAVENOUS (IV); COMPARISON: CT angio chest PE protcl [id number] 01/25/2024 3:40 PM RADIATION DOSE METRICS: Total DLP (mGy-cm): 1678.01 FINDINGS: Pulmonary arteries: No evidence of pulmonary thromboembolism. Aorta: No evidence of aneurysmal dilatation or dissection of the thoracic aorta. Lungs: Since prior exam 01/25/2024, there has been significant improvement in the region of masslike consolidation in the perihilar region on the right there are residual opacities and septal thickening, which may reflect residual infection or neoplasm in the proper clinical setting. If not previously characterized, consider further evaluation with outpatient PET-CT. Pleural spaces: No evidence of pleural effusion. No pneumothorax. Heart: No cardiomegaly. No pericardial effusion. Mediastinal space: No evidence of mediastinal mass, fluid collection or hematoma. Lymph nodes: Improving right hilar adenopathy. Carol tissue partially encases the right middle lobe segmental bronchi with mild narrowing. Bones/joints: No evidence of acute fracture or aggressive osseous lesion. Soft tissues: No evidence of fluid collection or hematoma in the superficial soft tissues. Postsurgical changes of the left breast. Other findings: No evidence of acute abnormality in the upper abdomen. Right adrenal mass measuring 5.3 cm, grossly unchanged. Left adrenal myelolipoma again noted. Moderate-severe narrowing of the proximal celiac trunk and renal arteries secondary to atherosclerotic plaque. Consider follow-up outpatient vascular evaluatiion. CT/CT angio chest PE protcl [id number] IMPRESSION: 1. No evidence of PE or acute aortic abnormality. 2. Significant improvement of the right perihilar region of masslike consolidation with residual opacities and septal thickening. If not previously characterized, consider further evaluation with outpatient PET-CT. 3. Right adrenal mass.
--- NOTE | 2024-03-14 15:34 | P.HP_ITS ---
Providers/Chief Complaint 2 Primary Care Provider: Jeanine Solares MD Chief Complaint: chest pain History of Present Illness Seema Del Rosario is a 68 year old female with a past medical history of breast cancer, status postmastectomy in 2017, on hormonal therapy, bilateral extremity wounds, followed above by wound care, atrial fibrillation, type 2 diabetes mellitus, CAD, CHF, history of sinus pause. She was recently mated [facility] for A-fib with RVR, had concerns for tachybradycardia syndrome, with consideration of pacemaker placement at some point, who presents [facility] for chest pain and palpitations, bilateral crampy wounds. Currently patient is alert oriented x 3, following all commands, blood pressure 174/110, she is in A-fib with RVR heart rates in the 120s, she tells me that this morning she had episodes of severe substernal chest pain, stabbing-like pain lasting a few seconds multiple episodes and no diaphoresis, no shortness of breath no lightheaded, dizziness. She also reports that her bilateral extremity wounds over the weekend have increased in drainage, more foul-smelling. Review of Systems 2 Const: Denies: fever(s) or chills Card: Reports: chest pain Resp: Denies: dyspnea GI: Denies: abdominal pain Medications/Allergies Home Medications Medication Instructions Recorded Confirmed Last Taken Type allopurinol 100 mg tablet 100 mg PO DAILY@0700 04/25/19 03/14/24 03/14/24 History gabapentin 300 mg capsule 300 mg PO TID@07,12,19 04/25/19 03/14/24 03/14/24 History insulin degludec 100 unit/mL (3 42 unit SUBCUT BID 09/06/20 03/14/24 03/14/24 History mL) subcutaneous pen (Tresiba FlexTouch U-100 insulin) insulin lispro 100 unit/mL 30 unit SUBCUT TID 07/30/21 03/14/24 03/14/24 History subcutaneous pen (Humalog KwikPen (U-100) Insulin) Rehabilitation Consultant brace #1 ea 08/18/22 03/14/24 11/13/22 05:00 Rx pantoprazole 40 mg tablet,delayed 40 mg PO QAM 10/15/22 03/14/24 03/14/24 History release apixaban 5 mg tablet (Eliquis) 5 mg PO BID #180 tabs 01/22/23 03/14/24 03/14/24 Rx aspirin 81 mg tablet,delayed 81 mg PO DAILY 06/15/23 03/14/24 03/14/24 History release clonidine HCl 0.3 mg tablet 0.3 mg PO TID 06/15/23 03/14/24 03/14/24 History rosuvastatin 20 mg tablet 20 mg PO BEDTIME 06/15/23 03/14/24 03/13/24 History ferrous sulfate 325 mg (65 mg 325 mg PO BID 12/23/23 03/14/24 03/14/24 History iron) tablet latanoprost 0.005 % eye drops 1 drp ophthalmic (eye) DAILY 12/23/23 03/14/24 03/14/24 History letrozole 2.5 mg tablet 2.5 mg PO DAILY 12/23/23 03/14/24 03/14/24 History ondansetron HCl 4 mg tablet 4 mg PO .q 4 hr PRN Nausea And 12/23/23 03/14/24 01/25/24 History Vomiting duloxetine 60 mg capsule,delayed 60 mg PO DAILY 01/25/24 03/14/24 03/14/24 History release nystatin 100,000 unit/gram topical 1 applic topical BID 01/25/24 03/14/24 03/14/24 History powder (Klayesta) metoprolol tartrate 50 mg tablet 100 mg (2 x 50 mg) PO BID #120 tabs 01/28/24 03/14/24 03/14/24 Rx clopidogrel 75 mg tablet 75 mg PO DAILY 03/14/24 03/14/24 03/14/24 History diltiazem HCl 120 mg 120 mg PO DAILY 03/14/24 03/14/24 03/14/24 History capsule,extended release 24 hr hydrocodone 7.5 mg-acetaminophen 1 tab PO Q8H 03/14/24 03/14/24 03/14/24 History 325 mg tablet Allergies Allergy/AdvReac Type Severity Reaction Status Date / Time dapagliflozin [From [facility]] Allergy Intermediate ADR-Itching Verified 02/02/24 15:15 empagliflozin Allergy Intermediate ADR-Itching Verified 02/02/24 15:15 [From J[facility]] anastrozole Allergy ALGY-Joint Verified 02/02/24 15:15 Pain PFSH Acute 2 PFSH: Medical History CKD (chronic kidney disease) Atherosclerosis of coronary artery of [place] heart without angina pectoris Peripheral arterial disease Lower extremity edema Leg pain Chronic venous insufficiency Chronic obstructive pulmonary disease Atrial fibrillation, chronic Diastolic heart failure Anemia Screen for colon cancer History of breast cancer Diabetes Hypertension Surgical History History of esophagogastroduodenoscopy (EGD) (~08/2019) dr. zacarias [facility] [place]. History of colonoscopy with polypectomy (~08/2019) dr. deann om. History of carpal tunnel release of both wrists History of coronary angioplasty with insertion of stent History of coronary artery balloon dilation History of lumpectomy Family History Father CAD (coronary artery disease), Onset Age: 50 Cancer Diabetes Hyperlipidemia Hypertension Lung disease Denies family history of Clotting disorder Dementia Psychiatric illness Chronic kidney disease (CKD) Suicide Anesthesia complication Bleeding disorder Stroke Social History Smoking and tobacco/nicotine status: former use of tobacco/nicotine Quit status (tobacco/nicotine): has quit using Year quit tobacco: 2016 - 2PPD x 40 Years Alcohol intake: never Substance/Drug Use: never Lives independently: Yes Household members: spouse Marital status: Current occupational status: retired Do you think of yourself as: Straight/Heterosexual Current gender identity: Female Vitals/I&O/Wt Last Vital Signs Temp 98.9 F 03/14/24 12:25 Pulse 121 H 03/14/24 14:00 Resp 16 03/14/24 14:00 BP 174/110 03/14/24 14:00 Pulse Ox 92 03/14/24 14:00 O2 Del Method Room Air 03/14/24 14:00 03/14/24 03/14/24 03/14/24 06:59 14:59 22:59 Intake Total 0 / 0 Balance 0 / 0 Weight last 48 hrs Weight 124.284 kg Physical Exam 2 Const: COMMON NORMALS: no acute distress and patient oriented x3 HENMT: COMMON NORMALS: normocephalic HEAD & SCALP: normocephalic Eye: COMMON NORMALS: Equal, round and reactive pupils present and EOMs intact bilaterally Neck/C-Spine: COMMON NORMALS: no JVD Lymph: LYMPHATIC: no lymphadenopathy noted Resp: COMMON NORMALS: normal respiratory effort, No retractions, No use of accessory muscles and clear to auscultation bilaterally AUSCULTATION: clear to auscultation bilaterally Cardio: COMMON NORMALS: regular rate, S1 normal heart sound present and S2 normal heart sound present RATE: tachycardic RHYTHM: abnormal rhythm H EART SOUNDS: S1 normal heart sound present and S2 normal heart sound present GI: COMMON NORMALS: Normal to inspection, nondistended, normoactive bowel sounds present, Soft to palpation and non-tender PALPATION: Yes Soft to palpation Extremity: COMMON NORMALS: no calf tenderness and no pedal edema Neuro: COMMON NORMALS: patient oriented x3, CN's II-XII intact bilaterally and moves all extremities Psych: COMMON NORMALS: mental status grossly normal Skin: NARRATIVE SKIN EXAM: Bilateral lower extremities, superficial ulcers of bilateral shins, right lower extremity superficial ulcer, measuring 4 x 4 cm, with surrounding erythema, superficial foul-smelling drainage Left lower extremity, multiple superficial ulcers largest measuring 1 x 1 cm, with surrounding erythema, foul-smelling drainage Data 03/14/24 12:33 03/14/24 12:33 A&P Assessment and plan (1) Atrial fibrillation with rapid ventricular response: (2) Lung mass: (3) Obstructive sleep apnea: (4) Tachy-brigitte syndrome: (5) Lower extremity edema: (6) Chest pain: Qualifiers: Chest pain type: unspecified Qualified Code(s): R07.9 - Chest pain, unspecified (7) Non-ST elevation myocardial infarction (NSTEMI): (8) Aortic stenosis: Qualifiers: Cardiac valve disease etiology: nonrheumatic Qualified Code(s): I35.0 - Nonrheumatic aortic (valve) stenosis (9) Diastolic heart failure: Qualifiers: Heart failure chronicity: chronic Qualified Code(s): I50.32 - Chronic diastolic (congestive) heart failure (10) Chronic venous insufficiency: (11) Diabetes: Qualifiers: Diabetes mellitus complication status: without complication Diabetes mellitus long term care pharmacist insulin use: with long term care pharmacist use Diabetes mellitus type: type 2 Qualified Code(s): E11.9 - Type 2 diabetes mellitus without complications; Z79.4 - rn long term care (current) use of insulin Plan Bilateral lower extremity wounds, with findings concerning for cellulitis -Consult general surgery for debridement -Continue wound care with wet-to-dry -Vancomycin -Zosyn -Blood cultures -Wound culture -X-ray of bilateral lower extremities -General Surgery consulted A-fib with RVR with history of tachybradycardia syndrome, sick sinus syndrome -Currently on Cardizem drip -Continue metoprolol 100 twice daily -Cardiology consulted -Continue Eliquis Chest pain -History of lung mass during last hospitalization has not followed with oncology -CT angiogram of the chest -Serial EKGs, troponins, telemetry monitoring -Cardiac echo -Continue aspirin, Plavix, statin, Eliquis History of breast cancer, status postmastectomy, on immunotherapy History of lung mass on CT imaging back in January Type 2 diabetes mellitus -Lantus 20 units twice daily -Moderate dose lisinopril full code eliquis for dvt prophylaxis Attestations 2 Medical Necessity Statement*: Patient requires hospitalization for bilateral lower extremity wounds requiring debridement IV antibiotics with concerns for cellulitis, A-fib with RVR with history of sick sinus syndrome, chest pain, history of lung mass Coding Level of Care Code Acute Code for g Fwd Diagnoses Atrial fibrillation with rapid ventricular response I48.91 Lung mass R91.8 Obstructive sleep apnea G47.33 Tachy-brigitte syndrome I49.5 Lower extremity edema R60.0 Chest pain R07.9 Chest pain type: unspecified Non-ST elevation myocardial infarction (NSTEMI) I21.4 Nonrheumatic aortic valve stenosis I35.0 Cardiac valve disease etiology: nonrheumatic Chronic diastolic heart failure I50.32 Heart failure chronicity: chronic Chronic venous insufficiency I87.2 Diabetes E11.9; Z79.4 Diabetes mellitus complication status: without complication Diabetes mellitus long term care pharmacist insulin use: with long term care pharmacist use Diabetes mellitus type: type 2
[2024-03-14 15:35] LABS: Erythrocyte Sedimentation Rate 84 mm/hr (0-15)
[2024-03-14] MEDS: piperacillin-tazobactam 3.375 GM in sodium chloride 0.9% (plus) 50 ML IV ×2 (15:35→21:08)
[2024-03-14 15:52] LABS: Lactic Sepsis W/Reflex 1.5 mmol/L (0.5-2.2)
[2024-03-14 16:02] LABS: Procalcitonin 0.07 ng/mL (0-0.5)
[2024-03-14 16:03] LABS: Troponin 5 2HR 50.59 ng/L (0-10); Troponin 5 2HR Delta 6.59 ABS# (0-10)
[2024-03-14 16:43] LABS: Estmated Average Glucose 197; Hemoglobin A1C 8.5 % (4.0-6.0)
--- NOTE | 2024-03-14 16:43 | P.CONIM_ITS ---
Providers/Reason For Consult 2 Consulting Physician/Specialty*: General Surgery Reason for Consult*: Bilateral lower extremity chronic wounds Attending Physician: Tu Alaniz MD Primary Care Provider: Jeanine Solares MD History of Present Illness History of Present Illness Seeam Del Rosario is a 68 year old female Who is being admitted to the hospital for cardiac workup and A-fib with RVR. She has chronic bilateral lower extremity superficial ulcerations that are being managed by wound care. During this hospital stay wounds were evaluated by hospitalist team showing some worsening and erythema and I was consulted for additional evaluation. According to the patient she is doing good job by following wound care instructions and uses speciality dressing on bilateral lower extremity and wrapping that is done at home. No worsening of swelling or discharge has been noted by the patient. Medications/Allergies Home Medications Medication Instructions Recorded Confirmed Last Taken Type allopurinol 100 mg tablet 100 mg PO DAILY@0700 04/25/19 03/14/24 03/14/24 History gabapentin 300 mg capsule 300 mg PO TID@07,12,19 04/25/19 03/14/24 03/14/24 History insulin degludec 100 unit/mL (3 42 unit SUBCUT BID 09/06/20 03/14/24 03/14/24 History mL) subcutaneous pen (Tresiba FlexTouch U-100 insulin) insulin lispro 100 unit/mL 30 unit SUBCUT TID 07/30/21 03/14/24 03/14/24 History subcutaneous pen (Humalog KwikPen (U-100) Insulin) Medical Collector brace #1 ea 08/18/22 03/14/24 11/13/22 05:00 Rx pantoprazole 40 mg tablet,delayed 40 mg PO QAM 10/15/22 03/14/24 03/14/24 History release apixaban 5 mg tablet (Eliquis) 5 mg PO BID #180 tabs 01/22/23 03/14/24 03/14/24 Rx aspirin 81 mg tablet,delayed 81 mg PO DAILY 06/15/23 03/14/24 03/14/24 History release clonidine HCl 0.3 mg tablet 0.3 mg PO TID 06/15/23 03/14/24 03/14/24 History rosuvastatin 20 mg tablet 20 mg PO BEDTIME 06/15/23 03/14/24 03/13/24 History ferrous sulfate 325 mg (65 mg 325 mg PO BID 12/23/23 03/14/24 03/14/24 History iron) tablet latanoprost 0.005 % eye drops 1 drp ophthalmic (eye) DAILY 12/23/23 03/14/24 03/14/24 History letrozole 2.5 mg tablet 2.5 mg PO DAILY 12/23/23 03/14/24 03/14/24 History ondansetron HCl 4 mg tablet 4 mg PO .q 4 hr PRN Nausea And 12/23/23 03/14/24 01/25/24 History Vomiting duloxetine 60 mg capsule,delayed 60 mg PO DAILY 01/25/24 03/14/24 03/14/24 History release nystatin 100,000 unit/gram topical 1 applic topical BID 01/25/24 03/14/24 03/14/24 History powder (Klayesta) metoprolol tartrate 50 mg tablet 100 mg (2 x 50 mg) PO BID #120 tabs 01/28/24 03/14/24 03/14/24 Rx clopidogrel 75 mg tablet 75 mg PO DAILY 03/14/24 03/14/24 03/14/24 History diltiazem HCl 120 mg 120 mg PO DAILY 03/14/24 03/14/24 03/14/24 History capsule,extended release 24 hr hydrocodone 7.5 mg-acetaminophen 1 tab PO Q8H 03/14/24 03/14/24 03/14/24 History 325 mg tablet Allergies Allergy/AdvReac Type Severity Reaction Status Date / Time dapagliflozin [From [facility]] Allergy Intermediate ADR-Itching Verified 02/02/24 15:15 empagliflozin Allergy Intermediate ADR-Itching Verified 02/02/24 15:15 [From [facility]] anastrozole Allergy ALGY-Joint Verified 02/02/24 15:15 Pain Current Medications Generic Name Dose Route Start Last Admin Trade Name Freq PRN Reason Stop Dose Admin Diltiazem HCl 100 mg/ Sodium 100 mls @ 0 mls/hr 03/14/24 14:15 03/14/24 15:27 Chloride IV 5 mg/hr .Q0M BRIGITTE 5 mls/hr Administration Protocol Per Protocol PFSH Acute 2 PFSH: Medical History CKD (chronic kidney disease) Atherosclerosis of coronary artery of [place] heart without angina pectoris Peripheral arterial disease Lower extremity edema Leg pain Chronic venous insufficiency Chronic obstructive pulmonary disease Atrial fibrillation, chronic Diastolic heart failure Anemia Screen for colon cancer History of breast cancer Diabetes Hypertension Surgical History History of esophagogastroduodenoscopy (EGD) (~08/2019) [place] [facility] [place] of colonoscopy with polypectomy (~08/2019) [place]ac[place] [facility] [place] History of carpal tunnel release of both wrists History of coronary angioplasty with insertion of stent History of coronary artery balloon dilation History of lumpectomy Family History Father CAD (coronary artery disease), Onset Age: 50 Cancer Diabetes Hyperlipidemia Hypertension Lung disease Denies family history of Clotting disorder Dementia Psychiatric illness Chronic kidney disease (CKD) Suicide Anesthesia complication Bleeding disorder Stroke Social History Smoking and tobacco/nicotine status: former use of tobacco/nicotine Quit status (tobacco/nicotine): has quit using Year quit tobacco: 2016 - 2PPD x 40 Years Alcohol intake: never Substance/Drug Use: never Lives independently: Yes Household members: spouse Marital status: Current occupational status: retired Do you think of yourself as: Straight/Heterosexual Current gender identity: Female Vitals/I&O/Wt Last Vital Signs Temp 98.9 F 03/14/24 12:25 Pulse 119 H 03/14/24 16:05 Resp 16 03/14/24 16:05 BP 163/94 03/14/24 14:55 Pulse Ox 84 L 03/14/24 16:10 O2 Del Method Room Air 03/14/24 14:00 03/14/24 03/14/24 03/14/24 06:59 14:59 22:59 Intake Total 0 / 0 1000 / 1000 Balance 0 / 0 1000 / 1000 Weight last 48 hrs Weight 274 lb Physical Exam 2 Extremity: OTHER: Bilateral lower extremities with chronic edema. On bilateral legs there is changes consistent with venous stasis, there are several extremity superficial ulcerations that compromised only the epithelium and at the moment appear clean without evidence of eschar, slough or deeper involvement. Data 03/14/24 12:33 03/14/24 12:33 A&P Assessment and plan (1) Chronic venous insufficiency: Plan After a complete history physical examination and review of all available clinical data the following is my assessment. Bilateral lower extremity show evidence of very superficial ulcerations and changes consistent with venous stasis. At the moment there is no need for debridement, the wounds are completely superficial and appear to be responding well to current wound care strategy. Wound care was done at the bedside, as I do not have advanced wound care products while the patient is in the hospital we can do Xeroform to the ulcerations and wrap legs with Kerlix. Once patient transitions to the outpatient setting she can return to the wound care center for multilayer dressing.Agree with a short course of antibiotics as guided by medical team for concerns of possible cellulitis. Consult Attestations 2 Medical Necessity Statement: Per medical team Coding Level of Care Code Acute Code for Chg Fwd Diagnoses Chronic venous insufficiency I87.2
[2024-03-14 16:53] LABS: Bilirubin Urine Negative (Negative); Blood Urine 1+ (Negative); Glucose Urine UA 1+ (Normal); Ketones Urine Negative (Negative); Leukocyte Esterase Urine Negative (Negative); Nitrate Urine Negative (Negative); Protein Urine 4+ (Negative); Specific Gravity, Urine 1.017 (1.005-1.030); Urine Appearance Clear (CLEAR); Urine Color Yellow (Yellow); Urobilinogen Urine 0.2 mg/dL (Negative)
[2024-03-14] MEDS: iohexol 350 mg/mL 500 mL Btl (per mL) IV (16:57)
[2024-03-14 16:58] LABS: Add Urine Microscopic? YES; Bacteria Urine Trace /hpf; Hyaline Casts Urine 16.53 /lpf; WBC Urine 21-50 /hpf (0-5)
[2024-03-14] MEDS: vancomycin 2,000 MG/400 ML PIGGYBACK 200 MG IV (17:09)
[2024-03-14 17:11] LABS: C Reactive Protein 17.4 mg/L (0.0-4.9); Chol HDL Ratio 2.63 mg/dL (0.0-4.40); Cholesterol 92 mg/dL (0-200); HDL Cholesterol 35 mg/dL (60-100); LDL Cholesterol Calculated 24 mg/dL (50-129); LDL HDL Ratio 0.69 RATIO (0.00-3.22); Thyroid Stimulating Hormone 0.53 uIU/mL (0.27-4.20); Triglycerides 167 mg/dL (0-150)
[2024-03-14 17:14] LABS: UA Slide Review UA Slide Review Perf
--- NOTE | 2024-03-14 18:43 | ECG_ITS ---
[facility] Date: 2024-03[facility]14 Pat Name: Seema Del Rosario Department: Room: EDIP Gender: Female Wellness Nurse: : 1955 Requested By: Mary Aceves Order Number: [id number] Jennie MD: Tom Argueta M.D. Measurements Intervals [place] Rate: 113 P: 0 MN: 0 QRS: -46 QRSD: 181 T: 70 QT: 417 QTc: 572 Interpretive Statements ATRIAL FIBRILLATION WITH RAPID VENTRICULAR RESPONSE LEFT AXIS DEVIATION [QRS AXIS < -30] RIGHT BUNDLE BRANCH BLOCK [120+ ms QRS DURATION, UPRIGHT V1, 40+ ms S IN I/aVL/V4/V5/V6] SEPTAL MYOCARDIAL INFARCTION , OF INDETERMINATE AGE [40+ ms Q WAVE IN V1/V2] MODERATE T-WAVE ABNORMALITY, CONSIDER INFERIOR ISCHEMIA [-0.1+ mV T-WAVE IN II/aVF] Compared to ECG 03/14/2024 14:07:57 T-wave abnormality now present Possible ischemia now present Atrial flutter no longer present Myocardial infarct finding still present Electronically Signed On 03-19-2024 13:53:32 RN ASSESSMENT by Tom Argueta M.D. [email or web address]
[2024-03-14 20:05] LABS: Troponin 5 6HR 50.72 ng/L (0-10); Troponin 5 6HR Delta 6.72 ng/L (0-12)
[2024-03-14 20:38] LABS: Glucose Point of Care 237 mg/dL (70-110)
[2024-03-14] MEDS: cloNIDine 0.1 mg Tablet 0.3 MG PO (20:51)
[2024-03-14] MEDS: metoprolol tartrate 50 mg Tablet 100 MG PO (20:51)
[2024-03-14] MEDS: apixaban 5 mg Tablet PO (20:51)
[2024-03-14] MEDS: atorvastatin 40 mg Tablet 80 MG PO (20:51)
[2024-03-14] MEDS: insulin glargine 100 units/1 mL 20 UNIT SUBCUT (20:54)
[2024-03-14] MEDS: insulin lispro 100 unit/1 mL SUBCUT (21:08)
--- NOTE | 2024-03-14 21:24 | PHA.VACGOAL ---
Vancomycin Goal - Goal Vancomycin Goal:: 10-15 mg/L Vancomycin Indication:: SSTI - Therapy Current therapy:: Pip/Tazo Day of therpy:: Day [1]of [] . Actual body weight (kg): 124.284 kg - Data Labs: WBC 10.29 10^3/uL (3.29-11.43) 03/14/24 12:33 RBC 4.68 10^6/uL (3.85-5.65) 03/14/24 12:33 Hgb 12.80 g/dL (11.27-16.99) 03/14/24 12:33 Hct 40.6 % (36-47) 03/14/24 12:33 MCV 86.8 fl (85-98) 03/14/24 12:33 MCH 27.4 pg (27-33) 03/14/24 12:33 MCHC 31.5 g/dL (30-55) 03/14/24 12:33 RDW 16.0 % (12.1-15.1) H 03/14/24 12:33 Sodium 139 mmol/L (136-145) 03/14/24 12:33 Potassium 3.2 mmol/L (3.5-5.1) L 03/14/24 12:33 Chloride 99 mmol/L (98-107) 03/14/24 12:33 Carbon Dioxide 24 mmol/L (22-29) 03/14/24 12:33 Anion Gap 19.2 (5-19) H 03/14/24 12:33 BUN 12 mg/dL (8-23) 03/14/24 12:33 Creatinine 0.7 mg/dL (0.5-0.9) 03/14/24 12:33 GFR Calculation 83.2 mL/min (90-130) L 03/14/24 12:33 Treatment plan:: new consult Regimen:: New start vancomycin for cellulitis. Received 2000 mg load dose. Started on maintenance dose of 2000 mg q12h based on population based pharmacokinetic nomogram.
[2024-03-14] MEDS: gabapentin 300 mg Capsule PO (22:10)
[2024-03-15] VITALS (70 sets, daily range): BP systolic 120–187; BP diastolic 65–104; PULSE 64–144; RESP 5–36; TEMP 36.9–37; O2SAT 90–95; BMI 45.6
--- NOTE | 2024-03-15 03:56 | PC.NURSE ---
US ARRIVED IN PT ROOM AT 0300
--- NOTE | 2024-03-15 03:59 | PC.NURSE ---
US LEFT ROOM AT 0350
[2024-03-15 04:35] LABS: Basophils % 0.4 %; Eosinophils # 0.2 10^3/uL (0.0-0.8); Eosinophils % 1.5 %; Hematocrit 36.6 % (36-47); Lymphocytes # 1.4 10^3/uL (0.8-4.8); Lymphocytes % 14.6 %; Mean Corpuscular HGB Conc 30.3 g/dL (30-55); Mean Corpuscular Hemoglobin 27.3 pg (27-33); Mean Corpuscular Volume 89.9 fl (85-98); Mean Platelet Volume 9.2 fL (7.4-10.4); Monocytes # 0.7 10^3/uL (0.2-0.9); Monocytes % 7.3 %; Neutrophils # 7.38 10^3/uL (1.8-7.7); Neutrophils % 75.8 %; Nucleated Red Blood Cells % 0 %; Platelet Count 259 10^3/cmm (157-399); Red Blood Count 4.07 10^6/uL (3.85-5.65); Red Cell Distribution Width 16.1 % (12.1-15.1); White Blood Count 9.74 10^3/uL (3.29-11.43)
[2024-03-15 04:54] LABS: Alanine Aminotransferase 16 U/L (0-33); Albumin Level 2.4 g/dL (3.5-5.2); Alkaline Phosphatase 92 U/L (35-105); Anion Gap 13.7 (5-19); Aspartate Amino Transferase 22 U/L (0-32); Blood Urea Nitrogen 12 mg/dL (8-23); Calcium 7.9 mg/dL (8.5-10.5); Carbon Dioxide 26 mmol/L (22-29); Chloride 104 mmol/L (98-107); Creatinine Clr Calc Pharmacy 80.5551; Globulin 3.1 g/dL (1.3-4.6); Glomerular Filtration Rate 62.3 mL/min (90-130); Glucose 146 mg/dL (65-115); Magnesium 1.9 mg/dL (1.7-2.3); Osmolality Calculated 294 mOsm/kg (285-295); Sodium 141 mmol/L (136-145); Total Bilirubin 0.2 mg/dL (0.15-1.2); Total Protein 5.5 g/dL (6.6-8.7)
[2024-03-15 05:00] LABS: Potassium 2.7 mmol/L (3.5-5.1)
[2024-03-15 05:05] LABS: NT Pro B Type Natriuretic Pept 17672 pg/mL (0-125)
[2024-03-15] MEDS: pantoprazole DR 40 mg Tablet PO (05:21)
[2024-03-15] MEDS: potassium chloride ER 20 mEq Tablet 40 MEQ PO (05:21)
--- NOTE | 2024-03-15 05:31 | PC.NURSE ---
VERIFIED VIA ONLINE RESOURCE PROVIDED THAT ANTIBIOTIC AND CARDIZEM WERE ABLE TO BE GIVEN AT THE SAME TIME, IT CONFIRMED THEY WERE. SECOND NURSE JP VERIFIED.
[2024-03-15] MEDS: piperacillin-tazobactam 3.375 GM in sodium chloride 0.9% (plus) 50 ML IV ×3 (05:33→21:16)
[2024-03-15] MEDS: vancomycin 2,000 MG/400 ML PIGGYBACK 200 MG IV ×2 (05:49→17:46)
--- NOTE | 2024-03-15 06:30 | PC.NURSE ---
NURSE CONSULTED DR AROUND 0400 AM FOR DRIP AND HR, WHEN DRIP WAS DONE PROVIDER CHANGED ORDER TO PO CARDIZEM VERBALLY OVER THE PHONE. NURSE PUT ORDER IN FOR ORAL CARDIZEM.
--- NOTE | 2024-03-15 06:35 | PC.NURSE ---
NURSE ASSUMED CARE OF PT AT 2300
[2024-03-15] MEDS: dilTIAZem 30 mg Tablet PO ×2 (06:42→12:24)
[2024-03-15] MEDS: allopurinol 100 mg Tablet PO (07:04)
[2024-03-15] MEDS: gabapentin 300 mg Capsule PO ×3 (07:04→19:01)
[2024-03-15 07:42] LABS: Glucose Point of Care 163 mg/dL (70-110)
--- NOTE | 2024-03-15 08:06 | ECG_ITS ---
[facility] Test Date: 2024-03-15 Pat Name: Seema Del Rosario Department: Room: 101 Gender: Female Accounts Payable Payroll Coordinator: : 1955 Requested By: Tu Alaniz Order Number: [id number] Schneider MD: Tom Argueta M.D. Measurements Intervals [place] Rate: 128 P: 0 SD: 0 QRS: -66 QRSD: 162 T: 237 QT: 362 QTc: 529 Interpretive Statements ATRIAL FIBRILLATION WITH RAPID VENTRICULAR RESPONSE LEFT AXIS DEVIATION [QRS AXIS < -30] RIGHT BUNDLE BRANCH BLOCK [120+ ms QRS DURATION, UPRIGHT V1, 40+ ms S IN I/aVL/V4/V5/V6] MODERATE T-WAVE ABNORMALITY, CONSIDER LATERAL ISCHEMIA [-0.1+ mV T-WAVE IN I/aVL/V5/V6] MODERATE T-WAVE ABNORMALITY, CONSIDER INFERIOR ISCHEMIA [-0.1+ mV T-WAVE IN II/aVF] Compared to ECG 03/14/2024 18:43:51 T-wave abnormality still present Possible ischemia still present Electronically Signed On 03-19-2024 13:51:05 CERTIFIED NUCLEAR MEDICINE TECHNOLOGIST by Tom Argueta M.D. [id number]
--- NOTE | 2024-03-15 08:15 | PC.NURSE ---
PT HEART RATE BACK IN THE 120S-130S. DR PENNY NOTIFIED. REPEAT EKG DONE. DR PENNY NOTIFIED AGAIN. TELEPHONE ORDERS TO GIVE SCHEDULED 100MG METOPROLOL NOW AND TO RECHECK IN ABOUT 15-13 MINUTES AND NOTIFY PHYSICIAN.
[2024-03-15] MEDS: metoprolol tartrate 50 mg Tablet 100 MG PO ×2 (08:20→17:50)
[2024-03-15] MEDS: insulin lispro 100 unit/1 mL SUBCUT ×4 (08:46→20:47)
--- NOTE | 2024-03-15 08:50 | P.CONIM_ITS ---
<Statement entered by Tom Argueta M.D - 03/16/24 20:26> Patient was evaluated and cared for in conjunction with an advanced practice practitioner. I personally examined the patient and reviewed the chart and all pertinent data including imaging, telemetry, and laboratory results. I discussed the patient in detail with the advanced practice practitioner. Please see their note for consult note, results and agreed upon plan of care for the patient. Patient has palpitations. Plan for continue rate controlling agents. Add amiodarone gtt. If patient unable to convert back or be rate controlled, will plan on KATT cardioversion in 1-2 days. GENERAL: Patient is alert and oriented HEART: Tachycardia, irregularly irregular LUNGS: Diminished air entry bilaterally EXTREMITIES: Lower extremities with 1+ edema Providers/Reason For Consult 2 Consulting Physician/Specialty*: Dr Argueta, cardiology Reason for Consult*: atrial fibrillation with RVR, history of tachybrady syndrome Requesting Physician: Dr Alaniz Attending Physician: Tu Alaniz MD Primary Care Provider: Jeanine Solares MD History of Present Illness History of Present Illness eSema Del Rosario is a 68 year old female with past medical history of metastatic breast cancer, CHF, atrial fibrillation, hypertension, tachybradycardia syndrome with previously documented sinus pause 4.3 seconds in duration on 01/08/2024. Most recent event monitor for the dates 01/29/2024 to 02/18/2024 did not show any pauses, minimum heart rate 50 bpm, maximum heart rate 142 bpm, atrial fibrillation burden 36%. She presented to the emergency room yesterday for chest pain, resolved with nitroglycerin. She was found to be in atrial fibrillation with RVR and started on diltiazem infusion. She has been seeing wound care for bilateral lower extremity wounds. She continued to have atrial fibrillation with RVR up until midnight last night, then was moved to [facility] this morning. On my examination she is in sinus tachycardia with bursts of atrial fibrillation with heart rates in the 120s. She does not have any chest pain or shortness of breath, no significant lower extremity edema. Review of Systems 2 Const: Denies: fever(s), chills, change in weight, fatigue or diaphoresis Eyes: Denies: change in vision ENMT: Denies: epistaxis Card: Reports: irregular heart rhythm; Denies: chest pain, palpitations, edema, syncope, pre-syncope, dyspnea on exertion, orthopnea or leg pain with exertion Resp: Denies: dyspnea, productive cough or wheezing GI: Denies: nausea, vomiting, hematemesis, hematochezia or melena : Denies: hematuria Musc: Denies: extremity swelling Archie/Lymph: Denies: easy bruising or easy bleeding Medications/Allergies Home Medications Medication Instructions Recorded Confirmed Last Taken Type allopurinol 100 mg tablet 100 mg PO DAILY@0700 04/25/19 03/14/24 03/14/24 History gabapentin 300 mg capsule 300 mg PO TID@07,12,19 04/25/19 03/14/24 03/14/24 History insulin degludec 100 unit/mL (3 42 unit SUBCUT BID 09/06/20 03/14/24 03/14/24 History mL) subcutaneous pen (Tresiba FlexTouch U-100 insulin) insulin lispro 100 unit/mL 30 unit SUBCUT TID 07/30/21 03/14/24 03/14/24 History subcutaneous pen (Humalog KwikPen (U-100) Insulin) Target Protection Specialist brace #1 ea 08/18/22 03/14/24 11/13/22 05:00 Rx pantoprazole 40 mg tablet,delayed 40 mg PO QAM 10/15/22 03/14/24 03/14/24 History release apixaban 5 mg tablet (Eliquis) 5 mg PO BID #180 tabs 01/22/23 03/14/24 03/14/24 Rx aspirin 81 mg tablet,delayed 81 mg PO DAILY 06/15/23 03/14/24 03/14/24 History release clonidine HCl 0.3 mg tablet 0.3 mg PO TID 06/15/23 03/14/24 03/14/24 History rosuvastatin 20 mg tablet 20 mg PO BEDTIME 06/15/23 03/14/24 03/13/24 History ferrous sulfate 325 mg (65 mg 325 mg PO BID 12/23/23 03/14/24 03/14/24 History iron) tablet latanoprost 0.005 % eye drops 1 drp ophthalmic (eye) DAILY 12/23/23 03/14/24 03/14/24 History letrozole 2.5 mg tablet 2.5 mg PO DAILY 12/23/23 03/14/24 03/14/24 History ondansetron HCl 4 mg tablet 4 mg PO .q 4 hr PRN Nausea And 12/23/23 03/14/24 01/25/24 History Vomiting duloxetine 60 mg capsule,delayed 60 mg PO DAILY 01/25/24 03/14/24 03/14/24 History release nystatin 100,000 unit/gram topical 1 applic topical BID 01/25/24 03/14/24 03/14/24 History powder (Klayesta) metoprolol tartrate 50 mg tablet 100 mg (2 x 50 mg) PO BID #120 tabs 01/28/24 03/14/24 03/14/24 Rx clopidogrel 75 mg tablet 75 mg PO DAILY 03/14/24 03/14/24 03/14/24 History diltiazem HCl 120 mg 120 mg PO DAILY 03/14/24 03/14/24 03/14/24 History capsule,extended release 24 hr hydrocodone 7.5 mg-acetaminophen 1 tab PO Q8H 03/14/24 03/14/24 03/14/24 History 325 mg tablet Allergies Allergy/AdvReac Type Severity Reaction Status Date / Time dapagliflozin [From Lisbeth] Allergy Intermediate ADR-Itching Verified 02/02/24 15:15 empagliflozin Allergy Intermediate ADR-Itching Verified 02/02/24 15:15 [From Michael] anastrozole Allergy ALGY-Joint Verified 02/02/24 15:15 Pain Current Medications Generic Name Dose Route Start Last Admin Trade Name Freq PRN Reason Stop Dose Admin Allopurinol 100 mg 03/15/24 07:00 03/15/24 07:04 Allopurinol 100 Mg Tablet PO 100 mg DAILY@0700 BRIGITTE Administration Apixaban 5 mg 03/14/24 18:00 03/14/24 20:51 Apixaban 5 Mg Tablet PO 5 mg BID BRIGITTE Administration Atorvastatin Calcium 80 mg 03/14/24 21:00 03/14/24 20:51 Atorvastatin 40 Mg Tablet PO 80 mg BEDTIME BRIGITTE Administration Clonidine HCl 0.3 mg 03/14/24 18:00 03/14/24 20:51 Clonidine 0.1 Mg Tablet PO 0.3 mg BID BRIGITTE Administration Diltiazem HCl 30 mg 03/15/24 06:30 03/15/24 06:42 Diltiazem 30 Mg Tablet PO 30 mg Q6H BRIGITTE Administration Gabapentin 300 mg 03/14/24 19:00 03/15/24 07:04 Gabapentin 300 Mg Capsule PO 300 mg TID@07,12,19 BRIGITTE Administration Piperacillin Sod/Tazobactam 50 mls @ 12.5 mls/hr 03/14/24 21:30 03/15/24 05:33 Sod 3.375 gm/ Sodium Chloride IV 12.5 mls/hr Q8H BRIGITTE Administration Vancomycin HCl 2,000 mg in 400 mls @ 200 mls/hr 03/15/24 05:00 03/15/24 08:21 Vancocin IV Infused Q12H BRIGITTE Infusion Insulin Glargine 20 unit 03/14/24 18:00 03/14/24 20:54 Insulin Glargine 100 Units/1 Ml SUBCUT 20 unit BID BRIGITTE Administration Insulin Human Lispro 0 unit 03/14/24 18:00 03/15/24 08:46 Insulin Lispro 100 Unit/1 Ml SUBCUT 4 unit WM&BEDTIME BRIGITTE Administration Protocol Metoprolol Tartrate 100 mg 03/14/24 18:00 03/15/24 08:17 Metoprolol Tartrate 50 Mg Tablet PO Not Given BID BRIGITTE Pantoprazole Sodium 40 mg 03/15/24 06:00 03/15/24 05:[address] 40 Mg Tablet PO 40 mg QAM BRIGITTE Administration PFSH Acute 2 PFSH: Medical History CKD (chronic kidney disease) Atherosclerosis of coronary artery of eek heart without angina pectoris Peripheral arterial disease Lower extremity edema Leg pain Chronic venous insufficiency Chronic obstructive pulmonary disease Atrial fibrillation, chronic Diastolic heart failure Anemia Screen for colon cancer History of breast cancer Diabetes Hypertension Surgical History History of esophagogastroduodenoscopy (EGD) (~08/2019) brandan david. History of colonoscopy with polypectomy (~08/2019) brandan david. History of carpal tunnel release of both wrists History of coronary angioplasty with insertion of stent History of coronary artery balloon dilation History of lumpectomy Family History Father CAD (coronary artery disease), Onset Age: 50 Cancer Diabetes Hyperlipidemia Hypertension Lung disease Denies family history of Clotting disorder Dementia Psychiatric illness Chronic kidney disease (CKD) Suicide Anesthesia complication Bleeding disorder Stroke Social History Smoking and tobacco/nicotine status: former use of tobacco/nicotine Quit status (tobacco/nicotine): has quit using Year quit tobacco: 2016 - 2PPD x 40 Years Alcohol intake: never Substance/Drug Use: never Lives independently: Yes Household members: spouse Marital status: Current occupational status: retired Do you think of yourself as: Straight/Heterosexual Current gender identity: Female Vitals/I&O/Wt Last Vital Signs Temp 98.9 F 03/14/24 12:25 Pulse 130 H 03/15/24 08:25 Resp 25 H 03/15/24 06:10 BP 129/65 03/15/24 08:25 Pulse Ox 93 03/15/24 08:25 O2 Del Method Room Air 03/14/24 16:51 03/14/24 03/15/24 03/15/24 22:59 06:59 14:59 Intake Total 1005.625 / 1550.000 544.375 / 1550.000 400 / 400 Balance 1005.625 / 1550.000 544.375 / 1550.000 400 / 400 Weight last 48 hrs Weight 274 lb Physical Exam 2 Const: COMMON NORMALS: no acute distress and patient oriented x3 GENERAL APPEARANCE: cooperative and comfortable ORIENTATION/CONSCIOUSNESS: Yes awake, Yes oriented to person, Yes oriented to place and Yes oriented to time Chest: COMMONS NORMALS: normal inspection of the chest and normal palpation of entire chest wall CHEST: Yes Symmetrical chest wall rise Resp: COMMON NORMALS: normal respiratory effort, No retractions, No use of accessory muscles and clear to auscultation bilaterally EFFORT & INSPECTION: Yes symmetric chest movement AUSCULTATION: clear to auscultation bilaterally Cardio: COMMON NORMALS: regular rate, regular rhythm, S1 normal heart sound present, S2 normal heart sound present, No gallops present (Cardio), No clicks present (Cardio), No murmurs present (Cardio) and No rub (Cardio) RATE: r egular rate RHYTHM: regular rhythm HEART SOUNDS: S1 normal heart sound present and S2 normal heart sound present PERIPHERAL PULSES: radial pulses present Extremity: COMMON NORMALS: no pedal edema Neuro: COMMON NORMALS: patient oriented x3 and moves all extremities S ENSORIUM/ORIENTATION: Yes oriented to person, Yes oriented to place and Yes oriented to time Data 03/15/24 04:23 03/15/24 04:23 Micro: Microbiology 03/14/24 17:01 Gram Stain - Final Leg - Left 03/14/24 17:01 Gram Stain - Final Leg - Right 03/14/24 17:08 Blood Culture - Preliminary Blood SPECIMEN COLLECTED 03/14/24 17:05 Blood Culture - Preliminary Blood SPECIMEN COLLECTED A&P Assessment and plan (1) Atrial fibrillation, chronic: (2) Diastolic heart failure: Qualifiers: Heart failure chronicity: chronic Qualified Code(s): I50.32 - Chronic diastolic (congestive) heart failure (3) Hypertension: Qualifiers: Hypertension type: primary hypertension Qualified Code(s): I10 - Essential (primary) hypertension (4) Tachy-brigitte syndrome: (5) Chest pain: Plan Rate control has been better after diltiazem infusion last night, now transitioned to oral diltiazem 30 mg 4 times daily. Continue metoprolol 100 mg twice daily. Currently does not have any symptoms of heart failure and appears euvolemic, will monitor for ventricular rate control, will consider IV diuretics if she develops symptoms of volume overload. If unable to obtain good ventricular rate control, may require amiodarone loading dose and infusion. Possibility of AKTT guided cardioversion discussed with her, if atrial fibrillation with RVR continues or is poorly tolerated. Consult Attestations 2 Medical Necessity Statement: Atrial fibrillation with RVR Coding Level of Care Code Acute Code for [facility] Diagnoses Atrial fibrillation, chronic I48.20 Chronic diastolic heart failure I50.32 Heart failure chronicity: chronic Primary hypertension I10 Hypertension type: primary hypertension Tachy-brigitte syndrome I49.5 Chest pain R07.9
[2024-03-15] MEDS: latanoprost 0.005% Op Soln 2.5 mL Btl 1 DROP EYE-BOTH (10:02)
[2024-03-15] MEDS: insulin glargine 100 units/1 mL 20 UNIT SUBCUT ×2 (10:02→18:04)
[2024-03-15] MEDS: aspirin 81 mg EC Tablet PO (10:03)
[2024-03-15] MEDS: apixaban 5 mg Tablet PO ×2 (10:03→17:50)
[2024-03-15] MEDS: duloxetine 60 mg Capsule PO (10:03)
[2024-03-15] MEDS: clopidogrel 75 mg Tablet PO (10:03)
[2024-03-15] MEDS: cloNIDine 0.1 mg Tablet 0.3 MG PO ×2 (10:03→17:47)
[2024-03-15] MEDS: potassium chloride ER 20 mEq Tablet PO ×2 (10:15→17:51)
[2024-03-15 11:28] LABS: Glucose Point of Care 303 mg/dL (70-110)
[2024-03-15] MEDS: HYDROcodone-acetaminophen 7.5-325 mg Tablet 1 TAB PO ×2 (12:23→20:07)
--- NOTE | 2024-03-15 16:12 | USCV_ITS ---
Miguel ÁngelSeema Age: 68 Gender: F : 1955 Exam Date: 03/14/2024 20:35 Ordering Phys: Tu Alaniz MD Technologist: SHAWN Exam Location: [facility] [place] Indication: SOB BP: 171 / 107 HR: 61 Rhythm: Sinus rhythm with strings of Atrial fibrillation Technical Quality: Adequate MEASUREMENTS (Male / Female) Normal Values 2D ECHO LV Diastolic Diameter PLAX 5.1 cm 4.2 - 5.9 / 3.9 - 5.3 cm IVS Diastolic Thickness 1.8 cm 0.6 - 1.0 / 0.6 - 0.9 cm IVS Systolic Thickness 2.3 cm LVPW Diastolic Thickness 1.6 cm 0.6 - 1.0 / 0.6 - 0.9 cm LVPW Systolic Thickness 1.9 cm LVOT Diameter 1.9 cm LV Ejection Fraction 2D Teich 60.7 % LV Ejection Fraction MOD 4C 63.0 % LV Ejection Fraction MOD 2C 50.3 % LV Ejection Fraction 2C AL 49.5 % LA Diameter 5.0 cm Aorta at Sinotubular Diameter 2.1 cm IVC Diameter 2.7 cm M-MODE LA Ao Ratio MM 1.7 AV Cusp Separation MM 1.7 cm DOPPLER AV Peak Velocity 165.0 cm/s LVOT Peak Velocity 105.0 cm/s AV Area Cont Eq vti 1.9 cm squared AV Area Cont Eq pk 1.9 cm squared MV Peak Velocity 123.0 cm/s MV Area PHT 4.0 cm squared Mitral E to A Ratio 1.4 TV Peak E Velocity 59.0 cm/s PV Peak Velocity 121.0 cm/s FINDINGS Left Ventricle Normal left ventricular size, systolic function and wall thickness, with no regional wall motion abnormalities. Left ventricular ejection fraction is estimated at 60 %. Grade I/IV diastolic dysfunction (abnormal relaxation filling pattern), normal to mildly elevated filling pressures. Right Ventricle The right ventricle is normal in size and function. Right Atrium The right atrium is normal in size. Left Atrium The left atrium is normal in size. Mitral Valve Moderately thickened mitral valve. Moderate mitral annular calcification. No mitral valve stenosis. Mild mitral valve regurgitation. Aortic Valve Moderate aortic valve calcification. Mild aortic valve stenosis, mean gradient 5.4 mmHg, JORGE 1.9 cm squared. Trace aortic valve regurgitation. Tricuspid Valve Trace tricuspid valve regurgitation. Pulmonic Valve Structurally normal pulmonic valve without significant stenosis. There is no pulmonic regurgitation. Pericardium Normal pericardium without effusion. Aorta Normal ascending aorta dimension. IVC The inferior vena cava appears normal. CONCLUSIONS Normal left ventricular size, systolic function and wall thickness, with no regional wall motion abnormalities. Left ventricular ejection fraction is estimated at 60 %. Grade I/IV diastolic dysfunction (abnormal relaxation filling pattern), normal to mildly elevated filling pressures. Moderate aortic valve calcification. Mild aortic valve stenosis, mean gradient 5.4 mmHg, JORGE 1.9 cm squared. Trace aortic valve regurgitation. Moderately thickened mitral valve. Moderate mitral annular calcification. No mitral valve stenosis. Mild mitral valve regurgitation. There is no pericardial effusion. Right atrial pressure is around 5 mm of mercury. Reid Lopez MD (Electronically Signed) Final Date: 16 March 2024 14:41 S
[2024-03-15 16:40] LABS: Glucose Point of Care 312 mg/dL (70-110)
--- NOTE | 2024-03-15 16:52 | P.PN_ITS ---
Subjective 2 Subjective: Patient was seen this morning, she is in cardiac stepdown unit, sitting up beside the bed, enjoying breakfast, her heart rates in the 120s, A-fib, she is just received her p.o. metoprolol this morning, denies any fevers, no chills, no cough Vitals/I&O/Wt Last Vital Signs Temp 98.4 F 03/15/24 12:00 Pulse 121 H 03/15/24 14:00 Resp 23 H 03/15/24 14:00 BP 149/104 03/15/24 14:00 Pulse Ox 94 03/15/24 14:00 O2 Del Method Room Air 03/15/24 14:00 03/15/24 03/15/24 03/15/24 06:59 14:59 22:59 Intake Total 544.375 / 0456.265 3595 / 1400 Balance 544.375 / 7133.608 4363 / 1400 Weight last 48 hrs Weight 124.284 kg Weight 124.284 kg Physical Exam 2 Const: COMMON NORMALS: no acute distress and patient oriented x3 Resp: COMMON NORMALS: normal respiratory effort, No retractions and No use of accessory muscles AUSCULTATION: crackles Cardio: COMMON NORMALS: S1 normal heart sound present and S2 normal heart sound present RATE: tachycardic RHYTHM: abnormal rhythm HEART SOUNDS: S 1 normal heart sound present and S2 normal heart sound present GI: COMMON NORMALS: Normal to inspection, nondistended, normoactive bowel sounds present, non-tender and no masses Extremity: OTHER: 1+ pitting edema Neuro: COMMON NORMALS: patient oriented x3 Psych: COMMON NORMALS: mental status grossly normal Data 03/15/24 04:23 03/15/24 04:23 Micro: Microbiology 03/14/24 17:01 Gram Stain - Final Leg - Left 03/14/24 17:01 Gram Stain - Final Leg - Right 03/14/24 17:08 Blood Culture - Preliminary Blood SPECIMEN COLLECTED 03/14/24 17:05 Blood Culture - Preliminary Blood SPECIMEN COLLECTED A&P Assessment and plan (1) Atrial fibrillation with rapid ventricular response: (2) Lung mass: (3) Obstructive sleep apnea: (4) Tachy-brigitte syndrome: (5) Lower extremity edema: (6) Chest pain: Qualifiers: Chest pain type: unspecified Qualified Code(s): R07.9 - Chest pain, unspecified (7) Non-ST elevation myocardial infarction (NSTEMI): (8) Aortic stenosis: Qualifiers: Cardiac valve disease etiology: nonrheumatic Qualified Code(s): I35.0 - Nonrheumatic aortic (valve) stenosis (9) Diastolic heart failure: Qualifiers: Heart failure chronicity: chronic Qualified Code(s): I50.32 - Chronic diastolic (congestive) heart failure (10) Chronic venous insufficiency: (11) Diabetes: Qualifiers: Diabetes mellitus complication status: without complication Diabetes mellitus intermediate designer insulin use: with penitentiary use Diabetes mellitus type: type 2 Qualified Code(s): E11.9 - Type 2 diabetes mellitus without complications; Z79.4 - long term acute care registered nurse (current) use of insulin Plan Bilateral lower extremity wounds, with findings concerning for cellulitis -Consult general surgery for debridement -Continue wound care with wet-to-dry -Vancomycin -Zosyn -Blood cultures -Wound culture -X-ray of bilateral lower extremities, no radiographic evidence of osteomyelitis -General Surgery consulted continue medical management 1+ pitting edema, BNP over 16,000 -Replace potassium first with 60 mEq of potassium -Will give 40 IV Lasix with 20 of potassium this afternoon -Recheck BMP this evening -Further dosing of Lasix based on clinical progress A-fib with RVR with history of tachybradycardia syndrome, sick sinus syndrome -Currently off Cardizem drip, increased to 60 every 6 -Continue metoprolol 100 twice daily -Cardiology consulted -Continue Eliquis Chest pain -History of lung mass during last hospitalization has not followed with oncology -CT angiogram of the chest CT/CT angio chest PE protcl [id number] IMPRESSION: 1. No evidence of PE or acute aortic abnormality. 2. Significant improvement of the right perihilar region of masslike consolidation with residual opacities and septal thickening. If not previously characterized, consider further evaluation with outpatient PET-CT. 3. Right adrenal mass. -Serial EKGs, troponins, telemetry monitoring -Cardiac echo, currently pending -Continue aspirin, Plavix, statin, Eliquis History of breast cancer, status postmastectomy, on immunotherapy History of lung mass on CT imaging back in January Type 2 diabetes mellitus -Lantus 20 units twice daily -Moderate dose lisinopril full code eliquis for dvt prophylaxis Attestations 2 Medical Necessity Statement*: Plan for today, continue IV antibiotics, IV diuresis, heart rate control, chest pain, cardiology consulted Diagnoses Atrial fibrillation with rapid ventricular response I48.91 Lung mass R91.8 Obstructive sleep apnea G47.33 Tachy-brigitte syndrome I49.5 Lower extremity edema R60.0 Chest pain R07.9 Chest pain type: unspecified Non-ST elevation myocardial infarction (NSTEMI) I21.4 Nonrheumatic aortic valve stenosis I35.0 Cardiac valve disease etiology: nonrheumatic Chronic diastolic heart failure I50.32 Heart failure chronicity: chronic Chronic venous insufficiency I87.2 Diabetes E11.9; Z79.4 Diabetes mellitus complication status: without complication Diabetes mellitus intermediate designer insulin use: with penitentiary use Diabetes mellitus type: type 2
[2024-03-15] MEDS: FUROsemide 10 mg/mL SDV 4mL 40 MG IVP (17:46)
[2024-03-15] MEDS: dilTIAZem 30 mg Tablet 60 MG PO ×2 (17:47→22:00)
[2024-03-15] MEDS: atorvastatin 40 mg Tablet 80 MG PO (20:07)
[2024-03-15 20:44] LABS: Glucose Point of Care 246 mg/dL (70-110)
[2024-03-15 23:18] LABS: Anion Gap 15.6 (5-19); Blood Urea Nitrogen 20 mg/dL (8-23); Calcium 7.8 mg/dL (8.5-10.5); Carbon Dioxide 23 mmol/L (22-29); Chloride 102 mmol/L (98-107); Creatinine Clr Calc Pharmacy 50.9475; Glomerular Filtration Rate 37.4 mL/min (90-130); Glucose 179 mg/dL (65-115); Osmolality Calculated 291 mOsm/kg (285-295); Potassium 3.6 mmol/L (3.5-5.1); Sodium 137 mmol/L (136-145)
[2024-03-16] VITALS (40 sets, daily range): BP systolic 136–179; BP diastolic 65–119; PULSE 63–127; RESP 16–33; TEMP 36.7–37; O2SAT 91–98
[2024-03-16] MEDS: vancomycin 2,000 MG/400 ML PIGGYBACK 200 MG IV (04:04)
[2024-03-16] MEDS: dilTIAZem 30 mg Tablet 60 MG PO (04:05)
[2024-03-16 04:32] LABS: Basophils % 0.4 %; Eosinophils # 0.3 10^3/uL (0.0-0.8); Eosinophils % 2.5 %; Hematocrit 37.3 % (36-47); Lymphocytes # 1.8 10^3/uL (0.8-4.8); Lymphocytes % 17.6 %; Mean Corpuscular Hemoglobin 27.6 pg (27-33); Mean Corpuscular Volume 91.9 fl (85-98); Mean Platelet Volume 9.8 fL (7.4-10.4); Monocytes # 0.7 10^3/uL (0.2-0.9); Monocytes % 6.7 %; Neutrophils # 7.33 10^3/uL (1.8-7.7); Neutrophils % 72.2 %; Nucleated Red Blood Cells % 0 %; Platelet Count 275 10^3/cmm (157-399); Red Blood Count 4.06 10^6/uL (3.85-5.65); Red Cell Distribution Width 16.3 % (12.1-15.1); White Blood Count 10.14 10^3/uL (3.29-11.43)
[2024-03-16] MEDS: piperacillin-tazobactam 3.375 GM in sodium chloride 0.9% (plus) 50 ML IV ×3 (04:47→21:08)
[2024-03-16 04:56] LABS: Alanine Aminotransferase 15 U/L (0-33); Albumin Level 2.4 g/dL (3.5-5.2); Alkaline Phosphatase 93 U/L (35-105); Aspartate Amino Transferase 18 U/L (0-32); Blood Urea Nitrogen 22 mg/dL (8-23); Carbon Dioxide 22 mmol/L (22-29); Chloride 103 mmol/L (98-107); Creatinine Clr Calc Pharmacy 50.9475; Globulin 3.2 g/dL (1.3-4.6); Glomerular Filtration Rate 37.4 mL/min (90-130); Glucose 152 mg/dL (65-115); Osmolality Calculated 292 mOsm/kg (285-295); Phosphorus 3.1 mg/dL (2.5-4.5); Sodium 138 mmol/L (136-145); Total Bilirubin 0.2 mg/dL (0.15-1.2); Total Protein 5.6 g/dL (6.6-8.7)
[2024-03-16 04:57] LABS: Anion Gap 16.7 (5-19); Potassium 3.7 mmol/L (3.5-5.1)
[2024-03-16] MEDS: allopurinol 100 mg Tablet PO (06:00)
[2024-03-16] MEDS: gabapentin 300 mg Capsule PO ×3 (06:00→19:13)
[2024-03-16] MEDS: pantoprazole DR 40 mg Tablet PO (06:00)
[2024-03-16 06:05] LABS: Glucose Point of Care 157 mg/dL (70-110)
[2024-03-16] MEDS: clopidogrel 75 mg Tablet PO (08:19)
[2024-03-16] MEDS: cloNIDine 0.1 mg Tablet 0.3 MG PO ×2 (08:19→17:09)
[2024-03-16] MEDS: duloxetine 60 mg Capsule PO (08:21)
[2024-03-16] MEDS: apixaban 5 mg Tablet PO ×2 (08:21→17:09)
[2024-03-16] MEDS: aspirin 81 mg EC Tablet PO (08:22)
[2024-03-16] MEDS: insulin glargine 100 units/1 mL 20 UNIT SUBCUT ×2 (08:22→17:08)
[2024-03-16] MEDS: metoprolol tartrate 50 mg Tablet 100 MG PO ×2 (08:22→17:10)
[2024-03-16] MEDS: insulin lispro 100 unit/1 mL SUBCUT ×4 (08:22→21:38)
[2024-03-16] MEDS: latanoprost 0.005% Op Soln 2.5 mL Btl 1 DROP EYE-BOTH (08:23)
[2024-03-16] MEDS: HYDROcodone-acetaminophen 7.5-325 mg Tablet 1 TAB PO ×2 (08:46→17:09)
--- NOTE | 2024-03-16 09:11 | PC.CHAP ---
Pastoral Care Encounter/Spiritual Assessment Type of Contact [] Declined nursing unit coordinator visit [] Patient/Family/Request visit [] Outpatient visit [] Follow-up visit [] Physician referral [] Code/Alert [] Routine visit [] Staff referral [] Actively dying [] Patient sleeping [] Family support [] [] Out of room [] Palliative care [] [x] Receiving care in room [] Pre-surgical visit [] Trauma [] Long length of stay [] ICU visit [] Other: Relational/Emotional Strength [] Patient feels connected with others/family/visitors/staff [] Distress [] Loneliness/isolation [] Abandonment Spirituality of Patient [] Person of Rachel [] Attends [employer] of their Rachel [] Believes in Prayer [] Reads Bible or Zoroastrianism materials [] There are Spiritual issues to be addressed 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 Interventions [] Prayer [] Active listening [] Non-anxious presence [] Spiritual/emotional support [] Crisis/trauma care [] Spiritual counseling [] Bereavement support [] Provided bereavement packet [] Provided Bible/devotional materials [] Provided toy/stuffed animal, coloring book to patient or family member [] Provided Communion [] Anointing/[place] [] Salvation [] Completed spiritual assessment [] Other: Impact on Illness or Injury [] Angry [] Fearful [] Anxious [] Often cries [] Exhaustion [] Unable to work [] Unable to attend nondenominational [] Unable to walk/stand [] Unable to read [] Unable to drive [] Unable to eat/drink [] Unable to sleep [] Unable to be with family [] Patient intubated [] Other: Summary Time spent with patient
--- NOTE | 2024-03-16 10:01 | P.PN_ITS ---
<Statement entered by Tom Argueta M.D - 03/16/24 20:42> Patient was evaluated and cared for in conjunction with an advanced practice practitioner. I personally examined the patient and reviewed the chart and all pertinent data including imaging, telemetry, and laboratory results. I discussed the patient in detail with the advanced practice practitioner. Please see their note for complete progress note, results and agreed upon plan of care for the patient. Patient went back in RVR this evening. Resuming amiodarone. If no response, will plan on cardioversion on Thursday. GENERAL: Patient is alert and oriented HEART: Irregularly irregular, tachycardia LUNGS: Clear to auscultation bilaterally EXTREMITIES: Lower extremities with no edema Subjective 2 Subjective: She has done well overnight, no chest pain or shortness of breath. She is sitting up in chair this morning. While she is asleep she has good ventricular rate control of atrial fibrillation, however while awake or ambulating heart rates running 100-120s. Will start her on amiodarone drip today, following bolus, per protocol. Blood pressures overnight and this morning have been running 160-170 systolic. Creatinine 1.4 today, received a dose of Lasix yesterday. She still has some mild lower extremity edema this morning. Vitals/I&O/Wt Last Vital Signs Temp 98.1 F 03/16/24 08:00 Pulse 88 03/16/24 08:00 Resp 23 H 03/16/24 08:00 BP 169/76 03/16/24 08:19 Pulse Ox 98 03/16/24 08:00 O2 Del Method Room Air 03/16/24 08:00 03/15/24 03/16/24 03/16/24 22:59 06:59 14:59 Intake Total 1290 / 3440 750 / 3440 360 / 360 Balance 1290 / 3440 750 / 3440 360 / 360 Weight last 48 hrs Weight 274 lb Weight 274 lb Weight 274 lb Physical Exam 2 Const: COMMON NORMALS: no acute distress and patient oriented x3 Chest: COMMONS NORMALS: normal inspection of the chest and normal palpation of entire chest wall CHEST: Yes Symmetrical chest wall rise Resp: COMMON NORMALS: normal respiratory effort, No retractions, No use of accessory muscles and clear to auscultation bilaterally EFFORT & INSPECTION: Yes symmetric chest movement AUSCULTATION: clear to auscultation bilaterally Cardio: COMMON NORMALS: S1 normal heart sound present, S2 normal heart sound present, No gallops present (Cardio), No clicks present (Cardio), No murmurs present (Cardio) and No rub (Cardio) RATE: tachycardic RHYTHM: abnormal rhythm irregularly irregular HEART SOUNDS: S1 normal heart sound present and S2 normal heart sound present PERIPHERAL PULSES: radial pulses present, posterior tibial pulses present and dorsalis pedis present Extremity: GENERAL: Yes edema (1+ pitting edema bilat below knee) Neuro: COMMON NORMALS: patient oriented x3 and moves all extremities Psych: COMMON NORMALS: mental status grossly normal and cooperative Data 03/16/24 03:15 03/16/24 03:15 Micro: Microbiology 03/14/24 17:08 Blood Culture - Preliminary Blood NEGATIVE TO DATE 03/14/24 17:05 Blood Culture - Preliminary Blood NEGATIVE TO DATE 03/14/24 17:01 Gram Stain - Final Leg - Left 03/14/24 17:01 Gram Stain - Final Leg - Right A&P Assessment and plan (1) Atrial fibrillation/flutter: (2) Tachy-brigitte syndrome: (3) Diastolic heart failure: Qualifiers: Heart failure chronicity: chronic Qualified Code(s): I50.32 - Chronic diastolic (congestive) heart failure (4) Hypertension: Qualifiers: Hypertension type: primary hypertension Qualified Code(s): I10 - Essential (primary) hypertension Plan She still does not have good rate control despite up titration of diltiazem to 60 mg 4 times daily yesterday. Will start her on amiodarone infusion, continue metoprolol to tartrate 100 mg twice a day. Anticoagulated with apixaban 5 mg twice daily. Continue aspirin, Plavix was added yesterday. Blood pressure elevated, currently taking clonidine 0.3 mg twice daily. Antibiotic therapy with vancomycin per hospitalist team for lower extremity wounds. Attestations 2 Medical Necessity Statement*: Management of A-fib with RVR Coding Level of Care Code Acute Code for [facility] Fwd Diagnoses Atrial fibrillation/flutter I48.91; I48.92 Tachy-brigitte syndrome I49.5 Chronic diastolic heart failure I50.32 Heart failure chronicity: chronic Primary hypertension I10 Hypertension type: primary hypertension
[2024-03-16] MEDS: FUROsemide 10 mg/mL SDV 4mL 40 MG IVP ×2 (10:11→17:09)
[2024-03-16 10:12] LABS: Erythrocyte Sedimentation Rate 59 mm/hr (0-15)
[2024-03-16 10:14] LABS: NT Pro B Type Natriuretic Pept 16548 pg/mL (0-125)
--- NOTE | 2024-03-16 10:27 | PC.SOCIAL ---
IMM Update Pg. 2 of IMM updated and reviewed. Copy provided to patient.
[2024-03-16 11:43] LABS: Glucose Point of Care 275 mg/dL (70-110)
--- NOTE | 2024-03-16 14:21 | P.PN_ITS ---
Subjective 2 Subjective: Patient was seen this morning, denies any fevers, no chills, no cough she is sitting up in a chair, does report lower extremity edema, does report episode of A-fib with RVR and tachycardia last night Vitals/I&O/Wt Last Vital Signs Temp 98.3 F 03/16/24 12:00 Pulse 63 03/16/24 12:00 Resp 22 H 03/16/24 12:00 BP 136/79 03/16/24 12:00 Pulse Ox 96 03/16/24 11:11 O2 Del Method Room Air 03/16/24 11:11 03/15/24 03/16/24 03/16/24 22:59 06:59 14:59 Intake Total 1290 / 2690 750 / 3440 770 / 770 Balance 1290 / 2690 750 / 3440 770 / 770 Weight last 48 hrs Weight 124.284 kg Weight 124.284 kg Physical Exam 2 Const: COMMON NORMALS: no acute distress and patient oriented x3 Resp: COMMON NORMALS: normal respiratory effort, No retractions, No use of accessory muscles and clear to auscultation bilaterally AUSCULTATION: clear to auscultation bilaterally Cardio: COMMON NORMALS: regular rate, regular rhythm, S1 normal heart sound present and S2 normal heart sound present RATE: regular rate RHYTHM: r egular rhythm HEART SOUNDS: S1 normal heart sound present and S2 normal heart sound present GI: COMMON NORMALS: Normal to inspection, nondistended, normoactive bowel sounds present and non-tender Neuro: COMMON NORMALS: patient oriented x3 Psych: COMMON NORMALS: mental status grossly normal Skin: NARRATIVE SKIN EXAM: 2+ pitting edema Data 03/16/24 03:15 03/16/24 03:15 Micro: Microbiology 03/14/24 17:01 Gram Stain - Final Leg - Right Wound Culture - Preliminary Gram Negative Rods 03/14/24 17:08 Blood Culture - Preliminary Blood NEGATIVE TO DATE 03/14/24 17:05 Blood Culture - Preliminary Blood NEGATIVE TO DATE 03/14/24 17:01 Gram Stain - Final Leg - Left A&P Assessment and plan (1) Atrial fibrillation with rapid ventricular response: (2) Lung mass: (3) Obstructive sleep apnea: (4) Tachy-brigitte syndrome: (5) Lower extremity edema: (6) Chest pain: Qualifiers: Chest pain type: unspecified Qualified Code(s): R07.9 - Chest pain, unspecified (7) Non-ST elevation myocardial infarction (NSTEMI): (8) Aortic stenosis: Qualifiers: Cardiac valve disease etiology: nonrheumatic Qualified Code(s): I35.0 - Nonrheumatic aortic (valve) stenosis (9) Diastolic heart failure: Qualifiers: Heart failure chronicity: chronic Qualified Code(s): I50.32 - Chronic diastolic (congestive) heart failure (10) Chronic venous insufficiency: (11) Diabetes: Qualifiers: Diabetes mellitus complication status: without complication 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 Qualified Code(s): E11.9 - Type 2 diabetes mellitus without complications; Z79.4 - manager long term care (current) use of insulin Plan Bilateral lower extremity wounds, with findings concerning for cellulitis -Consult general surgery for debridement -Continue wound care with wet-to-dry -Vancomycin -Zosyn -Blood cultures -Wound culture -X-ray of bilateral lower extremities, no radiographic evidence of osteomyelitis -General Surgery consulted continue medical management 2+ pitting edema, BNP over 16,000, diastolic CHF exacerbation 40 mg IV Lasix twice daily today -Further dosing of Lasix based on clinical progress A-fib with RVR with history of tachybradycardia syndrome, sick sinus syndrome -Currently off Cardizem drip, increased to 60 every 6 -Continue metoprolol 100 twice daily -Cardiology consulted -Continue Eliquis Chest pain -History of lung mass during last hospitalization has not followed with oncology -CT angiogram of the chest CT/CT angio chest PE protcl [id number] IMPRESSION: 1. No evidence of PE or acute aortic abnormality. 2. Significant improvement of the right perihilar region of masslike consolidation with residual opacities and septal thickening. If not previously characterized, consider further evaluation with outpatient PET-CT. 3. Right adrenal mass. -Serial EKGs, troponins, telemetry monitoring -Cardiac echo, currently pending -Continue aspirin, Plavix, statin, Eliquis History of breast cancer, status postmastectomy, on immunotherapy History of lung mass on CT imaging back in January Type 2 diabetes mellitus -Lantus 20 units twice daily -Moderate dose lisinopril full code eliquis for dvt prophylaxis Plan for today continue IV antibiotics, IV diuresis, as patient habitus episodes of A-fib with RVR, will be tried on amiodarone drip, diltiazem stopped monitor clinical progress Attestations 2 Medical Necessity Statement*: Patient requires hospitalization for A-fib with RVR requiring amiodarone drip, cellulitis requiring IV antibiotics, CHF requiring IV diuresis Diagnoses Atrial fibrillation with rapid ventricular response I48.91 Lung mass R91.8 Obstructive sleep apnea G47.33 Tachy-brigitte syndrome I49.5 Lower extremity edema R60.0 Chest pain R07.9 Chest pain type: unspecified Non-ST elevation myocardial infarction (NSTEMI) I21.4 Nonrheumatic aortic valve stenosis I35.0 Cardiac valve disease etiology: nonrheumatic Chronic diastolic heart failure I50.32 Heart failure chronicity: chronic Chronic venous insufficiency I87.2 Diabetes E11.9; Z79.4 Diabetes mellitus complication status: without complication 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
[2024-03-16 16:41] LABS: Glucose Point of Care 285 mg/dL (70-110)
[2024-03-16 16:41] LABS: Vancomycin Trough 39.3 ug/mL (10-15)
[2024-03-16] MEDS: potassium chloride ER 20 mEq Tablet PO (17:09)
[2024-03-16] MEDS: amiodarone 150 MG/100 ML PREMIX 400 MG IV (18:02)
[2024-03-16] MEDS: atorvastatin 40 mg Tablet 80 MG PO (20:10)
[2024-03-16 21:39] LABS: Glucose Point of Care 253 mg/dL (70-110)
[2024-03-17] VITALS (55 sets, daily range): BP systolic 115–190; BP diastolic 63–115; PULSE 79–126; RESP 9–30; TEMP 36.4–36.9; O2SAT 93–99; BMI 45.4
[2024-03-17 04:00] LABS: Basophils # 0.1 10^3/uL (0.0-0.1); Basophils % 0.5 %; Eosinophils # 0.4 10^3/uL (0.0-0.8); Eosinophils % 3.4 %; Hematocrit 38.6 % (36-47); Lymphocytes # 2.2 10^3/uL (0.8-4.8); Lymphocytes % 21.6 %; Mean Corpuscular HGB Conc 30.1 g/dL (30-55); Mean Corpuscular Hemoglobin 27.2 pg (27-33); Mean Corpuscular Volume 90.4 fl (85-98); Mean Platelet Volume 9.5 fL (7.4-10.4); Monocytes # 0.6 10^3/uL (0.2-0.9); Monocytes % 6.1 %; Neutrophils % 67.9 %; Nucleated Red Blood Cells % 0 %; Platelet Count 282 10^3/cmm (157-399); Red Blood Count 4.27 10^6/uL (3.85-5.65); Red Cell Distribution Width 16.2 % (12.1-15.1); White Blood Count 10.17 10^3/uL (3.29-11.43)
[2024-03-17 04:31] LABS: Alanine Aminotransferase 14 U/L (0-33); Albumin Level 2.5 g/dL (3.5-5.2); Alkaline Phosphatase 92 U/L (35-105); Aspartate Amino Transferase 15 U/L (0-32); Blood Urea Nitrogen 28 mg/dL (8-23); Calcium 8.5 mg/dL (8.5-10.5); Carbon Dioxide 24 mmol/L (22-29); Chloride 103 mmol/L (98-107); Creatinine Clr Calc Pharmacy 54.8666; Globulin 3.4 g/dL (1.3-4.6); Glomerular Filtration Rate 40.7 mL/min (90-130); Glucose 142 mg/dL (65-115); Magnesium 2.1 mg/dL (1.7-2.3); Osmolality Calculated 294 mOsm/kg (285-295); Phosphorus 3.5 mg/dL (2.5-4.5); Sodium 138 mmol/L (136-145); Total Bilirubin 0.2 mg/dL (0.15-1.2); Total Protein 5.9 g/dL (6.6-8.7)
[2024-03-17 04:33] LABS: Anion Gap 14.9 (5-19); Potassium 3.9 mmol/L (3.5-5.1)
[2024-03-17] MEDS: piperacillin-tazobactam 3.375 GM in sodium chloride 0.9% (plus) 50 ML IV ×3 (05:00→21:02)
[2024-03-17] MEDS: pantoprazole DR 40 mg Tablet PO (05:01)
--- NOTE | 2024-03-17 05:10 | PC.NURSE ---
Patient converted to ST (120s) around 0500 this morning. Amiodarone gtt still going at 0.5mg/min.
[2024-03-17] MEDS: HYDROcodone-acetaminophen 7.5-325 mg Tablet 1 TAB PO ×3 (05:25→22:46)
[2024-03-17] MEDS: cloNIDine 0.1 mg Tablet 0.3 MG PO ×2 (06:05→17:48)
[2024-03-17] MEDS: allopurinol 100 mg Tablet PO (06:06)
[2024-03-17] MEDS: gabapentin 300 mg Capsule PO ×3 (06:06→17:51)
--- NOTE | 2024-03-17 06:07 | PC.NURSE ---
Patient has elevated BP (150/108) with headache. Dr Castro notified of this and order received to give 9am dose of Catapres 0.3mg now.
[2024-03-17 06:42] LABS: Glucose Point of Care 152 mg/dL (70-110)
[2024-03-17] MEDS: insulin lispro 100 unit/1 mL SUBCUT ×4 (07:42→21:01)
[2024-03-17] MEDS: clopidogrel 75 mg Tablet PO (07:43)
[2024-03-17] MEDS: metoprolol tartrate 50 mg Tablet 100 MG PO ×2 (07:43→17:51)
[2024-03-17] MEDS: insulin glargine 100 units/1 mL 20 UNIT SUBCUT ×2 (07:43→17:48)
[2024-03-17] MEDS: apixaban 5 mg Tablet PO ×2 (07:43→17:50)
[2024-03-17] MEDS: duloxetine 60 mg Capsule PO (07:43)
[2024-03-17] MEDS: aspirin 81 mg EC Tablet PO (07:43)
[2024-03-17] MEDS: latanoprost 0.005% Op Soln 2.5 mL Btl 1 DROP EYE-BOTH (07:43)
[2024-03-17] MEDS: FUROsemide 10 mg/mL SDV 4mL 40 MG IVP ×2 (08:44→21:00)
[2024-03-17] MEDS: potassium chloride ER 20 mEq Tablet PO (08:44)
--- NOTE | 2024-03-17 09:30 | PC.CHAP ---
Pastoral Care Encounter/Spiritual Assessment Type of Contact [] Declined copy technician visit [] Patient/Family/Request visit [] Outpatient visit [] Follow-up visit [] Physician referral [] Code/Alert [x] Routine visit [] Staff referral [] Actively dying [] Patient sleeping [] Family support [] [] Out of room [] Palliative care [] [] Receiving care in room [] Pre-surgical visit [] Trauma [] Long length of stay [] ICU visit [] Other: Relational/Emotional Strength [x] Patient feels connected with others/family/visitors/staff [] Distress [] Loneliness/isolation [] Abandonment Spirituality of Patient [x] Person of Rachel [] Attends Islam of their Rachel [x] Believes in Prayer [] Reads Bible or Taoism materials [] There are Spiritual issues to be addressed Video Game Technician Interventions [x] Prayer [x] Active listening [] Non-anxious presence [x] Spiritual/emotional support [] Crisis/trauma care [] Spiritual counseling [] Bereavement support [] Provided bereavement packet [] Provided Bible/devotional materials [] Provided toy/stuffed animal, coloring book to patient or family member [] Provided Communion [] Anointing/[place] [] Salvation [x] Completed spiritual assessment [] Other: Impact on Illness or Injury [] Angry [] Fearful [] Anxious [] Often cries [] Exhaustion [] Unable to work [] Unable to attend taoist [] Unable to walk/stand [] Unable to read [] Unable to drive [] Unable to eat/drink [] Unable to sleep [] Unable to be with family [] Patient intubated [] Other: Summary Time spent with patient 5 min
--- NOTE | 2024-03-17 10:18 | P.PN_ITS ---
<Statement entered by Tom Argueta M.D - 03/17/24 20:50> Patient was evaluated and cared for in conjunction with an advanced practice practitioner. I personally examined the patient and reviewed the chart and all pertinent data including imaging, telemetry, and laboratory results. I discussed the patient in detail with the advanced practice practitioner. Please see their note for complete progress note, results and agreed upon plan of care for the patient. Patient has uncontrolled heart rate. We will plan on cardioversion tomorrow. Patient confirms she has not missed any doses of anticoagulation for atleast 1 month (she is sure about longer). NPO past midnight. GENERAL: Patient is alert and oriented HEART: Irregular irregular, tachycardia LUNGS: Clear to auscultation bilaterally EXTREMITIES: Lower extremities with no edema Subjective 2 Subjective: Amiodarone bolus and infusion was started around 6:00 last night due to atrial fibrillation with RVR. This morning heart rates are still in the 110-120 range. If we do not achieve good ventricular rate control over the course of today we will plan for cardioversion tomorrow. She has been faithful in taking her anticoagulation with apixaban 5 mg twice a day, has not missed any doses at least 4 weeks. She will not require KATT prior to cardioversion. Creatinine 1.3 today, BNP 16 548 yesterday. Vitals/I&O/Wt Last Vital Signs Temp 97.9 F 03/17/24 07:41 Pulse 124 H 03/17/24 08:00 Resp 20 H 03/17/24 08:00 BP 178/115 03/17/24 08:00 Pulse Ox 95 03/17/24 08:00 O2 Del Method Room Air 03/17/24 07:41 03/16/24 03/17/24 03/17/24 22:59 06:59 14:59 Intake Total 390 / 1982.092 823.092 / 1982.092 50 / 50 Output Total 300 / 300 Balance 390 / 1683.092 523.092 / 1683.092 50 / 50 Weight last 48 hrs Weight 273 lb 5 oz Weight 274 lb Physical Exam 2 Const: COMMON NORMALS: no acute distress and patient oriented x3 Chest: COMMONS NORMALS: normal inspection of the chest and normal palpation of entire chest wall CHEST: Yes Symmetrical chest wall rise Resp: COMMON NORMALS: normal respiratory effort, No retractions, No use of accessory muscles and clear to auscultation bilaterally EFFORT & INSPECTION: Yes symmetric chest movement AUSCULTATION: clear to auscultation bilaterally Cardio: COMMON NORMALS: S1 normal heart sound present, S2 normal heart sound present, No gallops present (Cardio), No clicks present (Cardio), No murmurs present (Cardio) and No rub (Cardio) RATE: tachycardic RHYTHM: abnormal rhythm irregularly irregular HEART SOUNDS: S1 normal heart sound present and S2 normal heart sound present PERIPHERAL PULSES: radial pulses present, posterior tibial pulses present and dorsalis pedis present Extremity: GENERAL: Yes edema (1-2+ pitting edema bilat LE) Neuro: COMMON NORMALS: patient oriented x3 and moves all extremities Psych: COMMON NORMALS: mental status grossly normal and cooperative Data 03/17/24 03:18 03/17/24 03:18 Micro: Microbiology 03/14/24 17:01 Gram Stain - Final Leg - Left Wound Culture - Preliminary Gram Negative Rods 03/14/24 17:01 Gram Stain - Final Leg - Right Wound Culture - Preliminary Gram Negative Rods A&P Assessment and plan (1) Atrial fibrillation, chronic: (2) Tachy-brigitte syndrome: (3) Diastolic heart failure: Qualifiers: Heart failure chronicity: chronic Qualified Code(s): I50.32 - Chronic diastolic (congestive) heart failure (4) Hypertension: Qualifiers: Hypertension type: primary hypertension Qualified Code(s): I10 - Essential (primary) hypertension Plan Will attempt to accomplish ventricular rate control with amiodarone infusion today. If unsuccessful will plan for cardioversion tomorrow. She does appear volume overloaded, will give Lasix 40 mg IV twice daily today, potassium 20 mEq daily. Attestations 2 Medical Necessity Statement*: Atrial fibrillation with RVR, possible cardioversion tomorrow Coding Level of Care Code Acute Code for [facility] Diagnoses Atrial fibrillation, chronic I48.20 Tachy-brigitte syndrome I49.5 Chronic diastolic heart failure I50.32 Heart failure chronicity: chronic Primary hypertension I10 Hypertension type: primary hypertension
[2024-03-17 11:44] LABS: Glucose Point of Care 281 mg/dL (70-110)
--- NOTE | 2024-03-17 13:59 | P.PN_ITS ---
Subjective 2 Subjective: Patient was seen this morning, she is sitting up to a chair, rates in the 120s, A-fib does report shortness of breath, does have lower extremity edema Vitals/I&O/Wt Last Vital Signs Temp 97.8 F 03/17/24 12:00 Pulse 105 H 03/17/24 12:00 Resp 16 03/17/24 12:00 BP 147/93 03/17/24 12:00 Pulse Ox 95 03/17/24 12:00 O2 Del Method Room Air 03/17/24 12:00 03/16/24 03/17/24 03/17/24 22:59 06:59 14:59 Intake Total 390 / 1160 823.092 / 1983.092 512 / 512 Output Total 300 / 300 Balance 390 / 1160 523.092 / 1683.092 512 / 512 Weight last 48 hrs Weight 123.972 kg Weight 124.284 kg Physical Exam 2 Const: COMMON NORMALS: no acute distress and patient oriented x3 Resp: COMMON NORMALS: normal respiratory effort, No retractions, No use of accessory muscles and clear to auscultation bilaterally AUSCULTATION: clear to auscultation bilaterally Cardio: COMMON NORMALS: S1 normal heart sound present and S2 normal heart sound present RATE: tachycardic RHYTHM: abnormal rhythm HEART SOUNDS: S 1 normal heart sound present and S2 normal heart sound present GI: COMMON NORMALS: Normal to inspection, nondistended, normoactive bowel sounds present and non-tender Extremity: COMMON NORMALS: no pedal edema Neuro: COMMON NORMALS: patient oriented x3 OTHER: 2+ pitting edema, bilateral extremities wrapped Psych: COMMON NORMALS: mental status grossly normal Data 03/17/24 03:18 03/17/24 03:18 Micro: Microbiology 03/14/24 17:01 Gram Stain - Final Leg - Left Wound Culture - Preliminary Gram Negative Rods 03/14/24 17:01 Gram Stain - Final Leg - Right Wound Culture - Preliminary Gram Negative Rods A&P Assessment and plan (1) Atrial fibrillation with rapid ventricular response: (2) Lung mass: (3) Obstructive sleep apnea: (4) Tachy-brigitte syndrome: (5) Lower extremity edema: (6) Chest pain: Qualifiers: Chest pain type: unspecified Qualified Code(s): R07.9 - Chest pain, unspecified (7) Non-ST elevation myocardial infarction (NSTEMI): (8) Aortic stenosis: Qualifiers: Cardiac valve disease etiology: nonrheumatic Qualified Code(s): I35.0 - Nonrheumatic aortic (valve) stenosis (9) Diastolic heart failure: Qualifiers: Heart failure chronicity: chronic Qualified Code(s): I50.32 - Chronic diastolic (congestive) heart failure (10) Chronic venous insufficiency: (11) Diabetes: Qualifiers: Diabetes mellitus complication status: without complication Diabetes mellitus intermission coordinator insulin use: with alf use Diabetes mellitus type: type 2 Qualified Code(s): E11.9 - Type 2 diabetes mellitus without complications; 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.4 - 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 (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) use of insulin Plan Bilateral lower extremity wounds, with findings concerning for cellulitis -Continue wound care with wet-to-dry -Vancomycin stopped as trough is 39.8 -Zosyn -Blood cultures -Wound culture -X-ray of bilateral lower extremities, no radiographic evidence of osteomyelitis -General Surgery consulted continue medical management 2+ pitting edema, BNP over 16,000, diastolic CHF exacerbation 40 mg IV Lasix twice daily today -Further dosing of Lasix based on clinical progress A-fib with RVR with history of tachybradycardia syndrome, sick sinus syndrome -Currently on amiodarone drip -Continue metoprolol 100 twice daily -Cardiology consulted -Continue Eliquis Chest pain -History of lung mass during last hospitalization has not followed with oncology -CT angiogram of the chest CT/CT angio chest PE protcl [id number] IMPRESSION: 1. No evidence of PE or acute aortic abnormality. 2. Significant improvement of the right perihilar region of masslike consolidation with residual opacities and septal thickening. If not previously characterized, consider further evaluation with outpatient PET-CT. 3. Right adrenal mass. -Serial EKGs, troponins, telemetry monitoring -Cardiac echo, currently pending -Continue aspirin, Plavix, statin, Eliquis History of breast cancer, status postmastectomy, on immunotherapy History of lung mass on CT imaging back in January Type 2 diabetes mellitus -Lantus 20 units twice daily -Moderate dose lisinopril full code eliquis for dvt prophylaxis Plan for today continue IV antibiotics, IV diuresis, A-fib with RVR on amiodarone Attestations 2 Medical Necessity Statement*: Patient requires hospitalization for bilateral remedy cellulitis, CHF, A-fib, chest pain Diagnoses Atrial fibrillation with rapid ventricular response I48.91 Lung mass R91.8 Obstructive sleep apnea G47.33 Tachy-brigitte syndrome I49.5 Lower extremity edema R60.0 Chest pain R07.9 Chest pain type: unspecified Non-ST elevation myocardial infarction (NSTEMI) I21.4 Nonrheumatic aortic valve stenosis I35.0 Cardiac valve disease etiology: nonrheumatic Chronic diastolic heart failure I50.32 Heart failure chronicity: chronic Chronic venous insufficiency I87.2 Diabetes E11.9; Z79.4 Diabetes mellitus complication status: without complication Diabetes mellitus intermission coordinator insulin use: with intermission coordinator use Diabetes mellitus type: type 2
[2024-03-17 15:48] LABS: Glucose Point of Care 259 mg/dL (70-110)
[2024-03-17 20:49] LABS: Glucose Point of Care 282 mg/dL (70-110)
[2024-03-17] MEDS: atorvastatin 40 mg Tablet 80 MG PO (21:00)
[2024-03-18] VITALS (39 sets, daily range): BP systolic 115–180; BP diastolic 71–120; PULSE 56–121; RESP 6–27; TEMP 36.3–36.9; O2SAT 93–100
[2024-03-18 05:07] LABS: Basophils # 0.1 10^3/uL (0.0-0.1); Basophils % 0.5 %; Eosinophils # 0.4 10^3/uL (0.0-0.8); Eosinophils % 3.8 %; Hematocrit 38.9 % (36-47); Lymphocytes # 2.2 10^3/uL (0.8-4.8); Lymphocytes % 22.7 %; Mean Corpuscular HGB Conc 30.3 g/dL (30-55); Mean Corpuscular Hemoglobin 27.1 pg (27-33); Mean Corpuscular Volume 89.4 fl (85-98); Monocytes # 0.5 10^3/uL (0.2-0.9); Monocytes % 5.6 %; Neutrophils # 6.36 10^3/uL (1.8-7.7); Neutrophils % 66.8 %; Nucleated Red Blood Cells % 0 %; Platelet Count 336 10^3/cmm (157-399); Red Blood Count 4.35 10^6/uL (3.85-5.65); Red Cell Distribution Width 16.1 % (12.1-15.1); White Blood Count 9.52 10^3/uL (3.29-11.43)
[2024-03-18 05:30] LABS: Alanine Aminotransferase 16 U/L (0-33); Albumin Level 2.7 g/dL (3.5-5.2); Alkaline Phosphatase 92 U/L (35-105); Anion Gap 15.3 (5-19); Aspartate Amino Transferase 17 U/L (0-32); Blood Urea Nitrogen 24 mg/dL (8-23); Carbon Dioxide 27 mmol/L (22-29); Chloride 102 mmol/L (98-107); Creatinine Clr Calc Pharmacy 64.7459; Globulin 3.5 g/dL (1.3-4.6); Glomerular Filtration Rate 49.4 mL/min (90-130); Glucose 165 mg/dL (65-115); Osmolality Calculated 298 mOsm/kg (285-295); Potassium 4.3 mmol/L (3.5-5.1); Sodium 140 mmol/L (136-145); Total Bilirubin 0.2 mg/dL (0.15-1.2); Total Protein 6.2 g/dL (6.6-8.7)
[2024-03-18 05:41] LABS: NT Pro B Type Natriuretic Pept 10659 pg/mL (0-125)
[2024-03-18] MEDS: piperacillin-tazobactam 3.375 GM in sodium chloride 0.9% (plus) 50 ML IV (05:50)
[2024-03-18] MEDS: allopurinol 100 mg Tablet PO (05:50)
[2024-03-18] MEDS: gabapentin 300 mg Capsule PO ×3 (05:51→18:12)
[2024-03-18] MEDS: pantoprazole DR 40 mg Tablet PO (05:51)
[2024-03-18 06:46] LABS: Glucose Point of Care 170 mg/dL (70-110)
[2024-03-18] MEDS: metoprolol tartrate 50 mg Tablet 100 MG PO (07:26)
[2024-03-18] MEDS: clopidogrel 75 mg Tablet PO (07:26)
[2024-03-18] MEDS: aspirin 81 mg EC Tablet PO (07:26)
[2024-03-18] MEDS: apixaban 5 mg Tablet PO ×2 (07:26→18:01)
[2024-03-18] MEDS: duloxetine 60 mg Capsule PO (07:27)
[2024-03-18] MEDS: cloNIDine 0.1 mg Tablet 0.3 MG PO ×2 (07:27→18:01)
[2024-03-18] MEDS: HYDROcodone-acetaminophen 7.5-325 mg Tablet 1 TAB PO ×2 (07:27→21:38)
[2024-03-18] MEDS: potassium chloride ER 20 mEq Tablet PO (07:28)
[2024-03-18] MEDS: FUROsemide 10 mg/mL SDV 4mL 40 MG IVP ×2 (07:28→21:38)
[2024-03-18] MEDS: insulin lispro 100 unit/1 mL SUBCUT ×3 (07:29→21:39)
[2024-03-18] MEDS: insulin glargine 100 units/1 mL 20 UNIT SUBCUT ×2 (07:29→18:02)
[2024-03-18] MEDS: latanoprost 0.005% Op Soln 2.5 mL Btl 1 DROP EYE-BOTH (07:41)
--- NOTE | 2024-03-18 09:46 | P.PN_ITS ---
<Statement entered by Tom Argueta M.D - 03/18/24 21:35> Patient was evaluated and cared for in conjunction with an advanced practice practitioner. I personally examined the patient and reviewed the chart and all pertinent data including imaging, telemetry, and laboratory results. I discussed the patient in detail with the advanced practice practitioner. Please see their note for complete progress note, results and agreed upon plan of care for the patient. GENERAL: Patient is alert and oriented HEART: Regular S1 and S2 LUNGS: Clear to auscultation bilaterally EXTREMITIES: Lower extremities with no edema Patient was successfully cardioverted back to normal sinus rhythm with 200J shock x1. Continue eliquis and amiodarone. Downtitrating dose of metoprolol and adding amlodipine. Subjective 2 Subjective: She continues in atrial fibrillation with RVR, ventricular rate at rest around 117 bpm. She did diurese some overnight, was about 500 mL negative this morning. Continue amiodarone infusion 0.5 mg/min, metoprolol tartrate 100mg BID. Creatinine down to 1.1 and BNP down to 10,659 today. Lower extremity edema improved. Continue Lasix 40 mg twice daily. Blood pressure has been elevated. She did eat breakfast this morning, which will delay planned cardioversion until 3 PM this afternoon. Continue aspirin, Plavix, atorvastatin. She is receiving clonidine 0.3 mg twice daily. Vitals/I&O/Wt Last Vital Signs Temp 97.3 F L 03/18/24 07:43 Pulse 117 H 03/18/24 07:43 Resp 23 H 03/18/24 07:43 BP 178/105 03/18/24 07:43 Pulse Ox 95 03/18/24 07:43 O2 Del Method Room Air 03/18/24 07:43 03/17/24 03/18/24 03/18/24 22:59 06:59 14:59 Intake Total 790 / 1552 250 / 1552 Output Total 850 / 1500 650 / 1500 1050 / 1050 Balance -60 / 52 -400 / 52 -1050 / -1050 Weight last 48 hrs Weight 273 lb 5 oz Physical Exam 2 Const: COMMON NORMALS: no acute distress and patient oriented x3 Chest: COMMONS NORMALS: normal inspection of the chest and normal palpation of entire chest wall CHEST: Yes Symmetrical chest wall rise Resp: COMMON NORMALS: normal respiratory effort, No retractions, No use of accessory muscles and clear to auscultation bilaterally EFFORT & INSPECTION: Yes symmetric chest movement AUSCULTATION: clear to auscultation bilaterally Cardio: COMMON NORMALS: S1 normal heart sound present, S2 normal heart sound present, No gallops present (Cardio), No clicks present (Cardio), No murmurs present (Cardio) and No rub (Cardio) RATE: tachycardic RHYTHM: abnormal rhythm irregularly irregular HEART SOUNDS: S1 normal heart sound present and S2 normal heart sound present PERIPHERAL PULSES: radial pulses present, posterior tibial pulses present and dorsalis pedis present Extremity: GENERAL: Yes edema (1+ pitting edema bilateral lower extremity below the knee) Neuro: COMMON NORMALS: patient oriented x3 and moves all extremities Psych: COMMON NORMALS: mental status grossly normal and cooperative Data 03/18/24 03:58 03/18/24 03:58 Micro: Microbiology 03/14/24 17:01 Gram Stain - Final Leg - Right Wound Culture - Preliminary Gram Negative Rods 03/14/24 17:01 Gram Stain - Final Leg - Left Wound Culture - Preliminary Gram Negative Rods Coag positive Staphylococcus A&P Assessment and plan (1) Atrial fibrillation, chronic: (2) Tachy-brigitte syndrome: (3) Hypertension: Qualifiers: Hypertension type: primary hypertension Qualified Code(s): I10 - Essential (primary) hypertension (4) Diastolic heart failure: Qualifiers: Heart failure chronicity: chronic Qualified Code(s): I50.32 - Chronic diastolic (congestive) heart failure Plan Continue gentle IV diuresis. Plan for cardioversion at 1500 today. Medications can be adjusted depending on outcome of the procedure. Attestations 2 Medical Necessity Statement*: Cardioversion today Coding Level of Care Code Acute Code for [facility] Fwd Diagnoses Atrial fibrillation, chronic I48.20 Tachy-brigitte syndrome I49.5 Primary hypertension I10 Hypertension type: primary hypertension Chronic diastolic heart failure I50.32 Heart failure chronicity: chronic
--- NOTE | 2024-03-18 10:32 | P.ANESASSM_ITS ---
Pre-Anesthetic Assessment Height/Weight: Height 1.65 m Weight 123.972 kg Temp Pulse Resp BP Pulse Ox O2 Del Method 97.3 F L 117 H 23 H 178/105 95 Room Air 03/18/24 07:43 03/18/24 07:43 03/18/24 07:43 03/18/24 07:43 03/18/24 07:43 03/18/24 07:43 Cardioversion Familial anesthetic complications: None Was Beta Rogers taken within 24 hours: N/A Was Clonidine taken within 24 hours: N/A Last intake: 729 patient ate sandwich Social No alcohol and No tobacco Exam alert, oriented x 3, clear to auscultation bilaterally and regular rate & rhythm Airway Mallampati: Class III Pulmonary Chronic Obstructive Pulmonary Disease and Sleep Apnea CV/HEM Atrial Fibrillation, Coronary Artery Disease (stent), Congestive Heart Failure and Hypertension Chronic Renal Insufficiency GI Gastroesophageal Reflux Disease Metabolic Morbid Obesity Anesthetic Plan ASA status: 4 Anesthesia: MAC Risk of > 500 ml blood loss (7ml/kg in children): No Medications/Allergies Home Medications Medication Instructions Recorded Confirmed Last Taken Type allopurinol 100 mg tablet 100 mg PO DAILY@0700 04/25/19 03/14/24 03/14/24 History gabapentin 300 mg capsule 300 mg PO TID@07,12,19 04/25/19 03/14/24 03/14/24 History insulin degludec 100 unit/mL (3 42 unit SUBCUT BID 09/06/20 03/14/24 03/14/24 History mL) subcutaneous pen (Tresiba FlexTouch U-100 insulin) insulin lispro 100 unit/mL 30 unit SUBCUT TID 07/30/21 03/14/24 03/14/24 History subcutaneous pen (Humalog KwikPen (U-100) Insulin) Hemmer Chainstitch brace #1 ea 08/18/22 03/14/24 11/13/22 05:00 Rx pantoprazole 40 mg tablet,delayed 40 mg PO QAM 10/15/22 03/14/24 03/14/24 History release apixaban 5 mg tablet (Eliquis) 5 mg PO BID #180 tabs 01/22/23 03/14/24 03/14/24 Rx aspirin 81 mg tablet,delayed 81 mg PO DAILY 06/15/23 03/14/24 03/14/24 History release clonidine HCl 0.3 mg tablet 0.3 mg PO TID 06/15/23 03/14/24 03/14/24 History rosuvastatin 20 mg tablet 20 mg PO BEDTIME 06/15/23 03/14/24 03/13/24 History ferrous sulfate 325 mg (65 mg 325 mg PO BID 12/23/23 03/14/24 03/14/24 History iron) tablet latanoprost 0.005 % eye drops 1 drp ophthalmic (eye) DAILY 12/23/23 03/14/24 03/14/24 History letrozole 2.5 mg tablet 2.5 mg PO DAILY 12/23/23 03/14/24 03/14/24 History ondansetron HCl 4 mg tablet 4 mg PO .q 4 hr PRN Nausea And 12/23/23 03/14/24 01/25/24 History Vomiting duloxetine 60 mg capsule,delayed 60 mg PO DAILY 01/25/24 03/14/24 03/14/24 History release nystatin 100,000 unit/gram topical 1 applic topical BID 01/25/24 03/14/24 03/14/24 History powder (Klayesta) metoprolol tartrate 50 mg tablet 100 mg (2 x 50 mg) PO BID #120 tabs 01/28/24 03/14/24 03/14/24 Rx clopidogrel 75 mg tablet 75 mg PO DAILY 03/14/24 03/14/24 03/14/24 History diltiazem HCl 120 mg 120 mg PO DAILY 03/14/24 03/14/24 03/14/24 History capsule,extended release 24 hr hydrocodone 7.5 mg-acetaminophen 1 tab PO Q8H 03/14/24 03/14/24 03/14/24 History 325 mg tablet isosorbide mononitrate 120 mg 120 mg PO DAILY 03/18/24 03/18/24 03/14/24 08:00 History tablet,extended release 24 hr Allergies Allergy/AdvReac Type Severity Reaction Status Date / Time [facility] All[facility] Intermediate ADR-Itching Verified 02/02/24 15:15 empagliflozin Allergy Intermediate ADR-Itching Verified 02/02/24 15:15 [From Jardiance] anastrozole Allergy ALGY-Joint Verified 02/02/24 15:15 Pain Current Medications Generic Name Dose Route Start Last Admin Trade Name Freq PRN Reason Stop Dose Admin Hydrocodone Bitart/Acetaminophen 1 tab 03/14/24 16:12 03/18/24 07:27 Hydrocodone-Acetaminophen 7.5-325 Mg Tablet PO 1 tab Q8H PRN Administration pain Allopurinol 100 mg 03/15/24 07:00 03/18/24 05:50 Allopurinol 100 Mg Tablet PO 100 mg DAILY@0700 BRIGITTE Administration Apixaban 5 mg 03/14/24 18:00 03/18/24 07:26 Apixaban 5 Mg Tablet PO 5 mg BID BRIGITTE Administration Aspirin 81 mg 03/15/24 09:00 03/18/24 07:26 Aspirin 81 Mg Ec Tablet PO 81 mg DAILY BRIGITTE Administration Atorvastatin Calcium 80 mg 03/14/24 21:00 03/17/24 21:00 Atorvastatin 40 Mg Tablet PO 80 mg BEDTIME BRIGITTE Administration Clonidine HCl 0.3 mg 03/14/24 18:00 03/18/24 07:27 Clonidine 0.1 Mg Tablet PO 0.3 mg BID BRIGITTE Administration Clopidogrel Bisulfate 75 mg 03/15/24 09:00 03/18/24 07:26 Clopidogrel 75 Mg Tablet PO 75 mg DAILY BRIGITTE Administration Duloxetine HCl 60 mg 03/15/24 09:00 03/18/24 07:27 Duloxetine 60 Mg Capsule PO 60 mg DAILY BRIGITTE Administration Furosemide 40 mg 03/17/24 08:00 03/18/24 07:28 Furosemide 10 Mg/Ml Sdv 4ml IVP 40 mg Q12H BRIGITTE Administration Gabapentin 300 mg 03/14/24 19:00 03/18/24 05:51 Gabapentin 300 Mg Capsule PO 300 mg TID@,,19 BRIGITTE Administration Piperacillin Sod/Tazobactam 50 mls @ 12.5 mls/hr 03/14/24 21:30 03/18/24 10:19 Sod 3.375 gm/ Sodium Chloride IV Infused Q8H BRIGITTE Infusion Amiodarone HCl/Dextrose 360 mg in 200 mls @ 0 mls/hr 03/16/24 09:58 03/18/24 07:24 Nexterone IV 0.5 mg/min .Q0M BRIGITTE 16.67 mls/hr Administration Protocol Per Protocol Insulin Glargine 20 unit 03/14/24 18:00 03/18/24 07:29 Insulin Glargine 100 Units/1 Ml SUBCUT 20 unit BID BRIGITTE Administration Insulin Human Lispro 0 unit 03/14/24 18:00 03/18/24 07:29 Insulin Lispro 100 Unit/1 Ml SUBCUT 4 unit WM&BEDTIME BRIGITTE Administration Protocol Latanoprost 1 drop 03/15/24 09:00 03/18/24 07:41 Latanoprost 0.005% Op Soln 2.5 Ml Btl EYE-BOTH 1 drop DAILY BRIGITTE Administration Metoprolol Tartrate 100 mg 03/14/24 18:00 03/18/24 07:26 Metoprolol Tartrate 50 Mg Tablet PO 100 mg BID BRIGITTE Administration Pantoprazole Sodium 40 mg 03/15/24 06:00 03/18/24 05:[address] 40 Mg Tablet PO 40 mg QAM BRIGITTE Administration Potassium Chloride 20 meq 03/17/24 09:00 03/18/24 07:28 Potassium Chloride Er 20 Meq Tablet PO 20 meq DAILY BRIGITTE Administration PFSH Anesthesia Medical History CKD (chronic kidney disease) Atherosclerosis of coronary artery of [place] heart without angina pectoris Peripheral arterial disease Lower extremity edema Leg pain Chronic venous insufficiency Chronic obstructive pulmonary disease Atrial fibrillation, chronic Diastolic heart failure Anemia Screen for colon cancer History of breast cancer Diabetes Hypertension Surgical History History of esophagogastroduodenoscopy (EGD) (~08/2019) [facility] [place]. History of colonoscopy with polypectomy (~08/2019) [facility] [place]. History of carpal tunnel release of both wrists History of coronary angioplasty with insertion of stent History of coronary artery balloon dilation History of lumpectomy Family History Father CAD (coronary artery disease), Onset Age: 50 Cancer Diabetes Hyperlipidemia Hypertension Lung disease Denies family history of Clotting disorder Dementia Psychiatric illness Chronic kidney disease (CKD) Suicide Anesthesia complication Bleeding disorder Stroke Social History Smoking and tobacco/nicotine status: former use of tobacco/nicotine Quit status (tobacco/nicotine): has quit using Year quit tobacco: 2016 - 2PPD x 40 Years Alcohol intake: never Substance/Drug Use: never Lives independently: Yes Household members: spouse Marital status: Current occupational status: retired Do you think of yourself as: Straight/Heterosexual Current gender identity: Female Data Anesthesia 03/18/24 03:58 03/18/24 03:58 Short CBC 03/17/24 03/18/24 Range/Units 03:18 03:58 WBC 10.17 9.52 (3.29-11.43) 10^3/uL Hgb 11.60 11.80 (11.27-16.99) g/dL Hct 38.6 38.9 (36-47) % MCV 90.4 89.4 (85-98) fl Plt Count 282 336 (157-399) 10^3/cmm Neut % (Auto) 67.9 66.8 % Neut # (Auto) 6.90 6.36 (1.8-7.7) 10^3/uL BMP 03/17/24 03/18/24 03:18 03:58 Sodium 138 140 Potassium 3.9 4.3 Chloride 103 102 Carbon Dioxide 24 27 BUN 28 H 24 H Creatinine 1.3 H 1.1 H Glucose 142 H 165 H Calcium 8.5 9.0 Cardiac Enzymes 03/18/24 Range/Units 03:58 NT-Pro-B Natriuret Pep 94817 H (0-125) pg/mL Liver Function 03/17/24 03/18/24 Range/Units 03:18 03:58 Total Bilirubin 0.2 0.2 (0.15-1.2) mg/dL AST 15 17 (0-32) U/L ALT 14 16 (0-33) U/L Alkaline Phosphatase 92 92 (35-105) U/L Albumin 2.5 L 2.7 L (3.5-5.2) g/dL Microbiology 03/14/24 17:01 Gram Stain - Final Leg - Right Wound Culture - Preliminary Gram Negative Rods 03/14/24 17:01 Gram Stain - Final Leg - Left Wound Culture - Preliminary Gram Negative Rods Coag positive Staphylococcus Cardiac Studies: 2 Echocardiogram 03/15/24 Echocardiogram Ultrasound 12/23/19 Sestamibi Stress Test (Cardiology) 01/18 Cardiac Event Monitor 01/28/24
[2024-03-18 11:06] LABS: Glucose Point of Care 271 mg/dL (70-110)
--- NOTE | 2024-03-18 14:09 | PM.PN ---
Subjective Subjective: Patient was seen this morning, sitting at the side of bed, no fevers, chills, no cough or edema is improving, unfortunate she had breakfast this morning, she is n.p.o. since then, plan on cardioversion this evening Vitals/I&O/Wt Last Vital Signs Temp 97.5 F L 03/18/24 12:00 Pulse 97 03/18/24 12:00 Resp 20 H 03/18/24 12:00 BP 132/90 03/18/24 12:00 Pulse Ox 93 03/18/24 12:00 O2 Del Method Room Air 03/18/24 12:00 03/17/24 03/18/24 03/18/24 22:59 06:59 14:59 Intake Total 790 / 1302 250 / 1552 50 / 50 Output Total 850 / 850 650 / 1500 1500 / 1500 Balance -60 / 452 -400 / 52 -1450 / -1450 Weight last 48 hrs Weight 123.972 kg Physical Exam Const: COMMON NORMALS: no acute distress and patient oriented x3 Resp: COMMON NORMALS: normal respiratory effort, No retractions, No use of accessory muscles and clear to auscultation bilaterally AUSCULTATION: clear to auscultation bilaterally Cardio: COMMON NORMALS: regular rate, regular rhythm, S1 normal heart sound present and S2 normal heart sound present RATE: regular rate RHYTHM: regular rhythm HEART SOUNDS: S1 normal heart sound present and S2 normal heart sound present GI: COMMON NORMALS: Normal to inspection, nondistended, normoactive bowel sounds present and non-tender Extremity: COMMON NORMALS: no pedal edema Neuro: COMMON NORMALS: patient oriented x3 Psych: COMMON NORMALS: mental status grossly normal Data 03/18/24 03:58 03/18/24 03:58 Micro: Microbiology 03/14/24 17:01 Gram Stain - Final Leg - Right Wound Culture - Preliminary Gram Negative Rods 03/14/24 17:01 Gram Stain - Final Leg - Left Wound Culture - Preliminary Gram Negative Rods Coag positive Staphylococcus A&P Assessment and plan (1) Atrial fibrillation with rapid ventricular response: (2) Lung mass: (3) Obstructive sleep apnea: (4) Tachy-brigitte syndrome: (5) Lower extremity edema: (6) Chest pain: Qualifiers: Chest pain type: unspecified Qualified Code(s): R07.9 - Chest pain, unspecified (7) Non-ST elevation myocardial infarction (NSTEMI): (8) Aortic stenosis: Qualifiers: Cardiac valve disease etiology: nonrheumatic Qualified Code(s): I35.0 - Nonrheumatic aortic (valve) stenosis (9) Diastolic heart failure: Qualifiers: Heart failure chronicity: chronic Qualified Code(s): I50.32 - Chronic diastolic (congestive) heart failure (10) Chronic venous insufficiency: (11) Diabetes: Qualifiers: Diabetes mellitus complication status: without complication Diabetes mellitus buttermaker helper insulin use: with skilled nursing use Diabetes mellitus type: type 2 Qualified Code(s): E11.9 - Type 2 diabetes mellitus without complications; Z79.4 - intermediate (current) use of insulin Plan Bilateral lower extremity wounds, with findings concerning for cellulitis -Continue wound care with wet-to-dry -Start p.o. Zyvox -Zosyn stopped, switched to p.o. Cipro -Blood cultures -Wound culture showing Staph aureus, gram-negative's -X-ray of bilateral lower extremities, no radiographic evidence of osteomyelitis -General Surgery consulted continue medical management 2+ pitting edema, BNP over 16,000, diastolic CHF exacerbation 40 mg IV Lasix twice daily today -Further dosing of Lasix based on clinical progress A-fib with RVR with history of tachybradycardia syndrome, sick sinus syndrome -Currently on amiodarone drip -Continue metoprolol 100 twice daily -Cardiology consulted, plans on cardioversion today -Continue Eliquis Chest pain -History of lung mass during last hospitalization has not followed with oncology -CT angiogram of the chest CT/CT angio chest PE protcl [id number] IMPRESSION: 1. No evidence of PE or acute aortic abnormality. 2. Significant improvement of the right perihilar region of masslike consolidation with residual opacities and septal thickening. If not previously characterized, consider further evaluation with outpatient PET-CT. 3. Right adrenal mass. -Serial EKGs, troponins, telemetry monitoring -Cardiac echo, currently pending -Continue aspirin, Plavix, statin, Eliquis History of breast cancer, status postmastectomy, on immunotherapy History of lung mass on CT imaging back in January Type 2 diabetes mellitus -Lantus 20 units twice daily -Moderate dose lisinopril full code eliquis for dvt prophylaxis Plan for today continue IV antibiotics, IV diuresis, A-fib with RVR on amiodarone, plans on cardioversion Attestations Medical Necessity Statement*: Patient requires hospitalization for bilateral extremity cellulitis, A-fib, chest pain, CHF Diagnoses Atrial fibrillation with rapid ventricular response I48.91 Lung mass R91.8 Obstructive sleep apnea G47.33 Tachy-brigitte syndrome I49.5 Lower extremity edema R60.0 Chest pain R07.9 Chest pain type: unspecified Non-ST elevation myocardial infarction (NSTEMI) I21.4 Nonrheumatic aortic valve stenosis I35.0 Cardiac valve disease etiology: nonrheumatic Chronic diastolic heart failure I50.32 Heart failure chronicity: chronic Chronic venous insufficiency I87.2 Diabetes E11.9; Z79.4 Diabetes mellitus complication status: without complication Diabetes mellitus buttermaker helper insulin use: with skilled nursing use Diabetes mellitus type: type 2
--- NOTE | 2024-03-18 14:28 | ECG_ITS ---
[facility] 2024[facility]18 Pat Name: Seema Del Rosario Department: Room: 101 Gender: Female Patient Escort: : 1955 Requested By: Tom Argueta Order Number: [id number] Jennie MD: Tom Argueta M.D. Measurements Intervals [place] Rate: 90 P: 0 AL: 0 QRS: -35 QRSD: 154 T: 30 QT: 419 QTc: 514 Interpretive Statements ATRIAL FIBRILLATION LEFT AXIS DEVIATION [QRS AXIS < -30] RIGHT BUNDLE BRANCH BLOCK [120+ ms QRS DURATION, UPRIGHT V1, 40+ ms S IN I/aVL/V4/V5/V6] MODERATE T-WAVE ABNORMALITY, CONSIDER INFERIOR ISCHEMIA [-0.1+ mV T-WAVE IN II/aVF] Compared to ECG 03/15/2024 08:06:59 Atrial flutter no longer present T-wave abnormality still present Possible ischemia still present Electronically Signed On 03-19-2024 13:19:03 PRIVATE INVESTIGATOR by Tom Argueta M.D. [email or web address]
--- NOTE | 2024-03-18 15:19 | W.PM.OPSUD ---
Surgery/Procedure H&P Update DATE OF PROCEDURE: March 18, 2024 DATE H&P PERFORMED: 03/15/24 H&P UPDATE INFORMATION: I have reviewed H&P completed within last 30 days, I have examined patient prior to procedure and No changes to prior documentation PREOP DIAGNOSIS: Atrial fibrillation with RVR PRIMARY INDICATION FOR PROCEDURE: Atrial fibrillation with RVR PLANNED PROCEDURE: KATT/ Cardioversion Anesthesia team is available OTHER PERTINENT EXAM FINDINGS: Anesthesia team is available
[2024-03-18] MEDS: sodium chloride 0.9% 1,000 ML 30 ML IV (15:25)
--- NOTE | 2024-03-18 15:40 | PC.NURSE ---
Patient prepped for cardioversion. Placed on Zoll. Instruction provided as to expectations. See time out. Patient given 70mg of propofol for sedation. Patient received 1 shock with 200jules. Patient converted to normal sinus brigitte. SpO2 remains at 100% with 5L oxymask. BP 163/77 Amiodarone drip has been stopped.
--- NOTE | 2024-03-18 15:41 | ECG_ITS ---
[facility] Test Date: 2024-03-18 Pat Name: Seema Del Rosario Department: Room: 101 Gender: Female Assistant Attorney General: : 1955 Requested By: Tom Argueta Order Number: [id number] Jennie MD: Tom Argueta M.D. Measurements Intervals [place] Rate: 55 P: 50 OK: 185 QRS: -29 QRSD: 158 T: 119 QT: 445 QTc: 426 Interpretive Statements SINUS BRADYCARDIA BORDERLINE LEFT AXIS DEVIATION [QRS AXIS < -20] RIGHT BUNDLE BRANCH BLOCK [120+ ms QRS DURATION, UPRIGHT V1, 40+ ms S IN I/aVL/V4/V5/V6] Compared to ECG 03/18/2024 14:33:52 Atrial fibrillation no longer present T-wave abnormality no longer present Possible ischemia no longer present Electronically Signed On 03-19-2024 13:31:56 PURLER by Tom Argueta M.D. [id number]
--- NOTE | 2024-03-18 15:48 | PM.PROC ---
Procedure Note: Date of procedure: 03/18/24 Pre-procedure diagnosis: Atrial fibrillation with RVR Post-procedure diagnosis: other (Normal sinus rhythm) Procedure: Cardioversion: After anesthesia team sedated patient, we proceeded with DCCV with 200J synchronized shock x1. Patient converted successfully back to normal sinus rhythm. Performing Provider: Tom Argueta Complications: None Condition: stable Disposition: floor Coding Level of Care Code Acute Code for [facility] Daily
--- NOTE | 2024-03-18 15:54 | PC.SOCIAL ---
IMM updated IMM dated and initialed and placed in chart and copy given to patient
[2024-03-18 17:12] LABS: Glucose Point of Care 121 mg/dL (70-110)
[2024-03-18] MEDS: linezolid 600 mg Tablet PO (18:01)
[2024-03-18] MEDS: amlodipine 5 mg Tablet PO (18:01)
[2024-03-18] MEDS: metoprolol tartrate 50 mg Tablet PO (18:01)
[2024-03-18 21:00] LABS: Glucose Point of Care 281 mg/dL (70-110)
[2024-03-18] MEDS: atorvastatin 40 mg Tablet 80 MG PO (21:38)
[2024-03-18] MEDS: ciprofloxacin 500 mg Tablet PO (21:39)
[2024-03-19] VITALS (9 sets, daily range): BP systolic 151–189; BP diastolic 8–88; PULSE 52–61; RESP 15–21; TEMP 36.4–36.7; O2SAT 93–97
--- NOTE | 2024-03-19 03:52 | PC.NURSE ---
Patient HR was dropping down in the 40's. Dr Castro was consulted and gave orders to hold amio gtt.
[2024-03-19 03:59] LABS: Basophils # 0.1 10^3/uL (0.0-0.1); Basophils % 0.6 %; Eosinophils # 0.3 10^3/uL (0.0-0.8); Hematocrit 35.2 % (36-47); Lymphocytes % 25.5 %; Mean Corpuscular HGB Conc 29.3 g/dL (30-55); Mean Corpuscular Hemoglobin 27.8 pg (27-33); Mean Corpuscular Volume 94.9 fl (85-98); Mean Platelet Volume 9.9 fL (7.4-10.4); Monocytes # 0.6 10^3/uL (0.2-0.9); Monocytes % 6.9 %; Neutrophils # 4.93 10^3/uL (1.8-7.7); Neutrophils % 62.2 %; Nucleated Red Blood Cells % 0 %; Platelet Count 217 10^3/cmm (157-399); Red Blood Count 3.71 10^6/uL (3.85-5.65); Red Cell Distribution Width 16.3 % (12.1-15.1); White Blood Count 7.93 10^3/uL (3.29-11.43)
[2024-03-19 04:34] LABS: Alanine Aminotransferase 16 U/L (0-33); Albumin Level 2.6 g/dL (3.5-5.2); Alkaline Phosphatase 89 U/L (35-105); Blood Urea Nitrogen 24 mg/dL (8-23); Calcium 8.2 mg/dL (8.5-10.5); Carbon Dioxide 23 mmol/L (22-29); Chloride 102 mmol/L (98-107); Creatinine Clr Calc Pharmacy 59.3504; Globulin 2.5 g/dL (1.3-4.6); Glomerular Filtration Rate 44.7 mL/min (90-130); Glucose 253 mg/dL (65-115); Osmolality Calculated 299 mOsm/kg (285-295); Sodium 138 mmol/L (136-145); Total Bilirubin 0.2 mg/dL (0.15-1.2); Total Protein 5.1 g/dL (6.6-8.7)
[2024-03-19 04:37] LABS: NT Pro B Type Natriuretic Pept 5402 pg/mL (0-125)
[2024-03-19 04:39] LABS: Anion Gap 17.1 (5-19); Aspartate Amino Transferase 22 U/L (0-32); Potassium 4.1 mmol/L (3.5-5.1)
[2024-03-19] MEDS: linezolid 600 mg Tablet PO (05:57)
[2024-03-19] MEDS: allopurinol 100 mg Tablet PO (05:58)
[2024-03-19] MEDS: pantoprazole DR 40 mg Tablet PO (05:58)
[2024-03-19] MEDS: gabapentin 300 mg Capsule PO ×2 (05:58→12:31)
[2024-03-19 06:32] LABS: Glucose Point of Care 200 mg/dL (70-110)
[2024-03-19] MEDS: aspirin 81 mg EC Tablet PO (07:30)
[2024-03-19] MEDS: metoprolol tartrate 50 mg Tablet PO (07:30)
[2024-03-19] MEDS: duloxetine 60 mg Capsule PO (07:30)
[2024-03-19] MEDS: cloNIDine 0.1 mg Tablet 0.3 MG PO (07:30)
[2024-03-19] MEDS: potassium chloride ER 20 mEq Tablet PO (07:30)
[2024-03-19] MEDS: FUROsemide 10 mg/mL SDV 4mL 40 MG IVP (07:31)
[2024-03-19] MEDS: apixaban 5 mg Tablet PO (07:31)
[2024-03-19] MEDS: insulin glargine 100 units/1 mL 20 UNIT SUBCUT (07:31)
[2024-03-19] MEDS: insulin lispro 100 unit/1 mL SUBCUT ×2 (07:31→12:31)
[2024-03-19] MEDS: clopidogrel 75 mg Tablet PO (07:31)
[2024-03-19] MEDS: amlodipine 5 mg Tablet PO ×2 (07:31→09:52)
[2024-03-19] MEDS: amiodarone 200 mg Tablet 400 MG PO (07:31)
[2024-03-19] MEDS: latanoprost 0.005% Op Soln 2.5 mL Btl 1 DROP EYE-BOTH (07:32)
--- NOTE | 2024-03-19 08:23 | P.PN_ITS ---
Subjective 2 Subjective: Patient is doing well. Staying in normal sinus rhythm. Blood pressure is elevated. Vitals/I&O/Wt Last Vital Signs Temp 97.9 F 03/19/24 07:19 Pulse 60 03/19/24 07:19 Resp 15 03/19/24 07:19 BP 189/88 03/19/24 07:30 Pulse Ox 97 03/19/24 07:19 O2 Del Method Room Air 03/19/24 07:19 O2 Flow Rate 5 03/18/24 15:44 03/18/24 03/19/24 03/19/24 22:59 06:59 14:59 Intake Total 440 / 490 304.735 / 794.735 Output Total 650 / 2150 750 / 2900 Balance -210 / -1660 -445.265 / -2105.265 Physical Exam 2 Narrative: GENERAL: Patient is alert, awake and oriented x3. [] NECK: No jugular vein distension. [] HEENT: No cyanosis. No icterus. No pallor. [] HEART: Regular S1 and S2. No murmur, rub or gallop. [] LUNGS: Clear to auscultate bilaterally. [] CENTRAL NERVOUS SYSTEM: Grossly nonfocal. [] EXTREMITIES: Lower extremities with 1+ edema bilaterally. Data 03/19/24 02:17 03/19/24 02:17 Micro: Microbiology 03/14/24 17:01 Gram Stain - Final Leg - Left Wound Culture - Final Pseudomonas aeruginosa Methicillin Resis Staph Aureus 03/14/24 17:01 Gram Stain - Final Leg - Right Wound Culture - Preliminary Pseudomonas aeruginosa Methicillin Resis Staph Aureus A&P Assessment and plan (1) Atrial fibrillation, chronic: (2) Tachy-brigitte syndrome: (3) Hypertension: Qualifiers: Hypertension type: primary hypertension Qualified Code(s): I10 - Essential (primary) hypertension (4) Diastolic heart failure: Qualifiers: Heart failure chronicity: chronic Qualified Code(s): I50.32 - Chronic diastolic (congestive) heart failure Plan Patient is staying in normal sinus rhythm post cardioversion. Continue Eliquis. Blood pressure is elevated. Will uptitrate amlodipine to 10 mg daily. Continue metoprolol 50 mg twice daily. Continue amiodarone Patient will need outpatient event monitor. Can be placed on dual she sees cardiology. Has an appointment with Dr. Lopez on Thursday next week Thank you for involving us with care of this patient. We will continue to follow. Please call with questions. Attestations 2 Medical Necessity Statement*: Care expected to cross 2 midnights. Coding Level of Care Code Acute Code for [facility] Fwd Diagnoses Atrial fibrillation, chronic I48.20 Tachy-brigitte syndrome I49.5 Primary hypertension I10 Hypertension type: primary hypertension Chronic diastolic heart failure I50.32 Heart failure chronicity: chronic
[2024-03-19] MEDS: ciprofloxacin 500 mg Tablet PO (09:52)
[2024-03-19 12:04] LABS: Glucose Point of Care 186 mg/dL (70-110)
--- NOTE | 2024-03-19 14:21 | PM.DCS ---
Discharge Providers Date of Admission: 03/14/24 15:46 Date of Discharge: March 19, 2024 Attending Provider at Admission: Tu Alaniz MD Attending Provider at Discharge: Tu Alaniz MD Primary Care Provider: Jeanine Solares MD Diagnoses at Discharge Discharge Diagnosis (1) Atrial fibrillation, chronic: Status: Acute (2) Tachy-brigitte syndrome: Status: Acute (3) Hypertension: Status: Acute Qualifiers: Hypertension type: primary hypertension Qualified Code(s): I10 - Essential (primary) hypertension (4) Diastolic heart failure: Status: Acute Qualifiers: Heart failure chronicity: chronic Qualified Code(s): I50.32 - Chronic diastolic (congestive) heart failure Reason for Visit Reason for Visit: chest pain Hospital Course Hospital Course Seema Del Rosario is a 68 year old female with a past medical history of breast cancer, status postmastectomy in 2017, on hormonal therapy, bilateral extremity wounds, followed above by wound care, atrial fibrillation, type 2 diabetes mellitus, CAD, CHF, history of sinus pause. She was recently mated [facility] for A-fib with RVR, had concerns for tachybradycardia syndrome, with consideration of pacemaker placement at some point, who presents [facility] for chest pain and palpitations, bilateral crampy wounds. Currently patient is alert oriented x 3, following all commands, blood pressure 174/110, she is in A-fib with RVR heart rates in the 120s, she tells me that this morning she had episodes of severe substernal chest pain, stabbing-like pain lasting a few seconds multiple episodes and no diaphoresis, no shortness of breath no lightheaded, dizziness. She also reports that her bilateral extremity wounds over the weekend have increased in drainage, more foul-smelling. Patient was admitted to [facility] for A-fib with RVR, tachybradycardia syndrome, cardiology was consulted, will require titration of her p.o. metoprolol, amiodarone drip, due to persistent A-fib with RVR patient underwent cardioversion successfully, remains in sinus rhythm. On discharge patient remains in sinus rhythm, she does have sinus bradycardia, metoprolol dose was decreased to 25 mg twice daily, placed on amiodarone tapering dose, discharged with event monitor order, with a close follow-up with cardiology as outpatient. Patient was advised if she were to have any chest pain or palpitations or lightheadedness or dizziness to go to the emergency room Patient was admitted to [facility] for chest pain, cardiology was consulted, medically managed, discharged on aspirin, Plavix, Eliquis with a close follow-up with cardiology as outpatient Patient was admitted to [facility] for acute diastolic CHF exacerbation requiring IV diuresis, euvolemic on discharge discharged on Lasix 40 mg daily with potassium replacement therapy 4 her bilateral lower extremity wounds, concerning for cellulitis, managed with wound care General Surgery was consulted who recommended medical management, wound cultures growing MRSA and Pseudomonas. Will be discharged on 7-day course of linezolid, and ciprofloxacin, follow-up with wound care continue daily dressing changes For history of lung mass on CT imaging back in January repeat CT angiogram the chest shows -CT angiogram of the chest CT/CT angio chest PE protcl [id number] IMPRESSION: 1. No evidence of PE or acute aortic abnormality. 2. Significant improvement of the right perihilar region of masslike consolidation with residual opacities and septal thickening. If not previously characterized, consider further evaluation with outpatient PET-CT. 3. Right adrenal mass. -Follow-up with pulmonary and oncology as outpatient - Monitor blood pressure at home -If your systolic blood pressures greater than 180 or your diastolic blood pressure is greater than 90, You can increase your Imdur up to 120 mg daily -If your blood pressure remains high I am going to have to send you home with hydralazine to be used as needed for systolic blood pressure greater than 180 or diastolic blood pressure greater than 100 -If you feel lightheaded or dizzy or chest pain go to emergency room -Follow-up with wound care continue daily wound care -Continue antibiotics for cellulitis -Take insulin as prescribed -Please take Lasix 40 mg daily with potassium replacement therapy recheck kidney function next week -Discharged with event monitor -Please monitor your blood sugars closely -Monitor your blood sugars 3 times daily as after meals -Please record your blood sugars, and a blood sugar log -For your NovoLog -Please inject blood sugar after meals based on sliding scale provided -Do not inject insulin if you do not eat as hypoglycemia kills -This is a NovoLog sliding scale -Insulin sliding ?fingerstick? Insulin ?141-180?0 units/sq 181-220?2 units/sq ?221-260?4 units/sq ?261-300 6 units/sq ?301-350?8 units/sq ?351-400 10 units/sq ?401-450?12 units/sq >450? 14units/sq -If your blood sugar is greater than 500 go to the emergency room -If your blood sugar is less than 60 or at anytime you feel lightheaded or dizzy or diaphoretic or have chest palpitations check your blood sugar, and eat a hard candy or drink orange juice and go immediately to the emergency room -Remember hypoglycemia kills, so if his blood sugar is less than 60 we have to increase it by taking in a sugary meal such as a hard candy or orange juice and go to the emergency room -If you have any questions please call us where here to help Physical Exam Const: COMMON NORMALS: no acute distress and patient oriented x3 Resp: COMMON NORMALS: normal respiratory effort, No retractions, No use of accessory muscles and clear to auscultation bilaterally AUSCULTATION: clear to auscultation bilaterally Cardio: COMMON NORMALS: regular rate, regular rhythm, S1 normal heart sound present and S2 normal heart sound present RATE: regular rate RHYTHM: regular rhythm HEART SOUNDS: S1 normal heart sound present and S2 normal heart sound present GI: COMMON NORMALS: Normal to inspection, nondistended, normoactive bowel sounds present and non-tender Extremity: COMMON NORMALS: no pedal edema Neuro: COMMON NORMALS: patient oriented x3 Psych: COMMON NORMALS: mental status grossly normal Discharge Data Studies Completed and Pending Completed Studies During Hospitalization Category Date Time Status CT angio chest PE protcl [id number] Stat Cat Scan 03/14/24 15:33 Completed XR chest 1V portable [id number] Stat Exams 03/14/24 12:33 Completed XR tibia fibula LT 2V [id number] Stat Exams 03/14/24 15:19 Completed XR tibia fibula RT 2V [id number] Stat Exams 03/14/24 15:19 Completed CV. echo complete* [id number] Routine Ultrasound 03/15/24 16:12 Completed Pending at discharge Category Date Time Status Blood Culture Routine Lab 03/14/24 17:08 Results Complete Blood Count w/Auto AM LABS Lab 03/20/24 04:00 Ordered Comprehensive Metabolic Panel AM LABS Lab 03/20/24 04:00 Ordered Magnesium AM LABS Lab 03/20/24 04:00 Ordered NT Pro B Type Natriuretic Pept QAM Lab 03/20/24 06:00 Ordered Wound Culture and Gram Stain Routine Lab 03/14/24 17:01 Results Radiology Impressions Chest X-Ray 03/14/24 12:33 IMPRESSION: 1. No acute cardiopulmonary finding. Tibia/Fibula X-Ray 03/14/24 15:19 IMPRESSION: 1. No bony injury. Marked DJD at the knee. 2. Arterial and venous calcifications in the lower leg. Chest CTA 03/14/24 15:33 IMPRESSION: 1. No evidence of PE or acute aortic abnormality. 2. Significant improvement of the right perihilar region of masslike consolidation with residual opacities and septal thickening. If not previously characterized, consider further evaluation with outpatient PET-CT. 3. Right adrenal mass. Laboratory Results WBC 7.93 10^3/uL (3.29-11.43) 03/19/24 02:17 RBC 3.71 10^6/uL (3.85-5.65) L 03/19/24 02:17 Hgb 10.30 g/dL (11.27-16.99) L 03/19/24 02:17 Hct 35.2 % (36-47) L 03/19/24 02:17 MCV 94.9 fl (85-98) D 03/19/24 02:17 MCH 27.8 pg (27-33) 03/19/24 02:17 MCHC 29.3 g/dL (30-55) L 03/19/24 02:17 RDW 16.3 % (12.1-15.1) H 03/19/24 02:17 Plt Count 217 10^3/cmm (157-399) D 03/19/24 02:17 MPV 9.9 fL (7.4-10.4) 03/19/24 02:17 Neut % (Auto) 62.2 % 03/19/24 02:17 Lymph % (Auto) 25.5 % 03/19/24 02:17 [place] % (Auto) 6.9 % 03/19/24 02:17 Eos % (Auto) 4.0 % 03/19/24 02:17 Baso % (Auto) 0.6 % 03/19/24 02:17 Neut # (Auto) 4.93 10^3/uL (1.8-7.7) 03/19/24 02:17 Lymph # (Auto) 2.0 10^3/uL (0.8-4.8) 03/19/24 02:17 [place] # (Auto) 0.6 10^3/uL (0.2-0.9) 03/19/24 02:17 Eos # (Auto) 0.3 10^3/uL (0.0-0.8) 03/19/24 02:17 Baso # (Auto) 0.1 10^3/uL (0.0-0.1) 03/19/24 02:17 Nucleated RBC % (auto) 0 % 03/19/24 02:17 Nucleated RBCs # 0.0 /100WBC 03/19/24 02:17 ESR 59 mm/hr (0-15) H 03/16/24 09:33 Sodium 138 mmol/L (136-145) 03/19/24 02:17 Potassium 4.1 mmol/L (3.5-5.1) 03/19/24 02:17 Chloride 102 mmol/L (98-107) 03/19/24 02:17 Carbon Dioxide 23 mmol/L (22-29) 03/19/24 02:17 Anion Gap 17.1 (5-19) 03/19/24 02:17 BUN 24 mg/dL (8-23) H 03/19/24 02:17 Creatinine 1.2 mg/dL (0.5-0.9) H 03/19/24 02:17 GFR Calculation 44.7 mL/min (90-130) L 03/19/24 02:17 Glucose 253 mg/dL (65-115) H 03/19/24 02:17 POC Glucose 186 mg/dL (70-110) H 03/19/24 11:23 Estimat Average Glucose 197 03/14/24 12:33 Hemoglobin A1c 8.5 % (4.0-6.0) H 03/14/24 12:33 Calculated Osmolality 299 mOsm/kg (285-295) H 03/19/24 02:17 Lactic Acid 1.5 mmol/L (0.5-2.2) 03/14/24 12:33 Calcium 8.2 mg/dL (8.5-10.5) L 03/19/24 02:17 Phosphorus 3.5 mg/dL (2.5-4.5) 03/17/24 03:18 Magnesium 2.0 mg/dL (1.7-2.3) 03/19/24 02:17 Total Bilirubin 0.2 mg/dL (0.15-1.2) 03/19/24 02:17 AST 22 U/L (0-32) 03/19/24 02:17 ALT 16 U/L (0-33) 03/19/24 02:17 Alkaline Phosphatase 89 U/L (35-105) 03/19/24 02:17 Troponin T Baseline 44 ng/L (0-10) H 03/14/24 12:33 Troponin T 120 Minute 50.59 ng/L (0-10) H 03/14/24 15:16 Delta Troponin T 6.59 ABS# (0-10) 03/14/24 15:16 Troponin T Hi Sens 6Hr 50.72 ng/L (0-10) H 03/14/24 19:20 Troponin T Hi Sens 6Hr Delta 6.72 ng/L (0-12) 03/14/24 19:20 C-Reactive Protein 17.4 mg/L (0.0-4.9) H 03/14/24 12:33 NT-Pro-B Natriuret Pep 5402 pg/mL (0-125) H 03/19/24 02:17 Total Protein 5.1 g/dL (6.6-8.7) L 03/19/24 02:17 Albumin 2.6 g/dL (3.5-5.2) L 03/19/24 02:17 Globulin 2.5 g/dL (1.3-4.6) 03/19/24 02:17 Triglycerides 167 mg/dL (0-150) H 03/14/24 12:33 Cholesterol 92 mg/dL (0-200) 03/14/24 12:33 LDL Cholesterol, Calc 24 mg/dL (50-129) L 03/14/24 12:33 HDL Cholesterol 35 mg/dL (60-100) L 03/14/24 12:33 LDL/HDL Ratio 0.69 RATIO (0.00-3.22) 03/14/24 12:33 Cholesterol/HDL Ratio 2.63 mg/dL (0.0-4.40) 03/14/24 12:33 Lipase 16 U/L (13-60) 03/14/24 12:33 Procalcitonin 0.07 ng/mL (0-0.5) 03/14/24 12:33 TSH 0.53 uIU/mL (0.27-4.20) 03/14/24 12:33 Urine Color Yellow (Yellow) 03/14/24 16:39 Urine Appearance Clear (CLEAR) 03/14/24 16:39 Urine pH 6.0 (5-7) 03/14/24 16:39 Ur Specific Rebecca 1.017 (1.005-1.030) 03/14/24 16:39 Urine Protein 4+ (Negative) A 03/14/24 16:39 Urine Glucose (UA) 1+ (Normal) H 03/14/24 16:39 Urine Ketones Negative (Negative) 03/14/24 16:39 Urine Blood 1+ (Negative) A 03/14/24 16:39 Urine Nitrate Negative (Negative) 03/14/24 16:39 Urine Bilirubin Negative (Negative) 03/14/24 16:39 Urine Urobilinogen 0.2 mg/dL (Negative) 03/14/24 16:39 Ur Leukocyte Esterase Negative (Negative) 03/14/24 16:39 Urine RBC 6-10 /hpf (0-2) 03/14/24 16:39 Urine WBC 21-50 /hpf (0-5) H 03/14/24 16:39 Ur Squamous Epith Cells 6-10 /hpf (0-5) 03/14/24 16:39 Amorphous Sediment Not Reportable 03/14/24 16:39 Urine Bacteria Trace /hpf (NONE) 03/14/24 16:39 Hyaline Casts 16.53 /lpf 03/14/24 16:39 Vancomycin Trough 39.3 ug/mL (10-15) H* 03/16/24 16:07 Vitals Last Vital Signs Temp 98.0 F 03/19/24 11:25 Pulse 52 L 03/19/24 11:25 Resp 21 H 03/19/24 11:25 BP 151/75 03/19/24 11:25 Pulse Ox 95 03/19/24 11:25 O2 Del Method Room Air 03/19/24 11:25 O2 Flow Rate 5 03/18/24 15:44 Discharge Plan Discharge Patient Disposition: Home Health Service Condition: Stable Prescriptions: New ciprofloxacin HCl 500 mg Tablet 500 mg PO BID@0900,2100 7 Days Qty: 14 0RF amlodipine 10 mg Tablet 10 mg PO DAILY 30 Days Qty: 30 0RF linezolid 600 mg Tablet 600 mg PO Q12H 7 Days Qty: 14 0RF amiodarone [Pacerone] 200 mg Tablet See Rx Instructions .ROUTE .COMPLEX Qty: 60 0RF Rx Instructions: Take 2 tablets daily for 5 days then 1 tablet daily thereafter metoprolol tartrate 25 mg Tablet 25 mg PO BID 30 Days Qty: 60 0RF hydralazine 25 mg tablet 12.5 mg PO BID PRN (Reason: sbp>180 or dbp>100) 30 Days Qty: 30 0RF furosemide [Lasix] 40 mg tablet 40 mg PO DAILY 30 Days Qty: 30 0RF potassium chloride [Klor-Con M10] 10 mEq tablet,ER particles/crystals 10 meq PO DAILY 30 Days Qty: 30 0RF Continued Eliquis 5 mg tablet 5 mg PO BID Qty: 180 3RF latanoprost 0.005 % drops 1 drp ophthalmic (eye) DAILY ondansetron HCl 4 mg tablet 4 mg PO .q 4 hr PRN (Reason: Nausea And Vomiting) ferrous sulfate 325 mg (65 mg iron) tablet 325 mg PO BID letrozole 2.5 mg tablet 2.5 mg PO DAILY allopurinol 100 mg tablet 100 mg PO DAILY@0700 gabapentin 300 mg capsule 300 mg PO TID@07,12,19 pantoprazole 40 mg tablet,delayed release (DR/EC) 40 mg PO QAM nystatin [Klayesta] 100,000 unit/gram powder 1 applic TOPICAL BID duloxetine 60 mg capsule,delayed release(DR/EC) 60 mg PO DAILY aspirin 81 mg tablet,delayed release (DR/EC) 81 mg PO DAILY rosuvastatin 20 mg tablet 20 mg PO BEDTIME hydrocodone-acetaminophen 7.5-325 mg tablet 1 tab PO Q8H clopidogrel 75 mg tablet 75 mg PO DAILY Rx Instructions: TAKE 1 TABLET BY MOUTH EVERY DAY Changed Tresiba FlexTouch U-100 100 unit/mL (3 mL) insulin pen 20 unit SUBCUT BID Qty: 15 0RF insulin lispro [Humalog KwikPen Insulin] 100 unit/mL insulin pen See Rx Instructions .ROUTE .COMPLEX Qty: 15 0RF Rx Instructions: Inject, subcut, 3 times daily, after meals, based on sliding scale provided clonidine HCl 0.3 mg tablet 0.3 mg PO BID 30 Days Qty: 60 0RF isosorbide mononitrate 120 mg tablet extended release 24 hr 60 mg PO DAILY 30 Days Qty: 30 0RF Discontinued metoprolol tartrate 50 mg Tablet 100 mg PO BID Qty: 120 0RF diltiazem HCl 120 mg capsule,extended release 24hr 120 mg PO DAILY Rx Instructions: TAKE 1 CAPSULE BY MOUTH EVERY DAY No Action (DME) 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 - Location: Radiology Ordered By: Tu Alaniz Referrals: [facility] [Outside] Jeanine Solares MD [Primary Care Provider] - (Please call provider to make appointment ) Reid Lopez MD [Physician] - 1-3 days (We have notified your physician's clinic of the need for a follow-up appointment to be scheduled. If you have not heard from them within the next 2 business days, please call them directly. ) Bryant Trevizo MD, MBBS, MPH [Referring] - 2 weeks (Please call and make appointment with office.) Nikhil Jara MD [Hospitalist] - 1 week Discharge Diet: Cardiac Discharge Activity: Resume usual activity Patient Instructions: Diabetes and Diet, Ciprofloxacin (By mouth), Metoprolol (By mouth), Amiodarone (By mouth), Hydralazine (By mouth), Amlodipine (By mouth), Linezolid (By mouth), A-fib (Atrial Fibrillation) (DC), Chest Pain (DC), Breast Cancer in Women (GEN), Opioid Safety Activity Restrictions/Additional Instructions: - Monitor blood pressure at home -If your systolic blood pressures greater than 180 or your diastolic blood pressure is greater than 90, You can increase your Imdur up to 120 mg daily -If your blood pressure remains high I am going to have to send you home with hydralazine to be used as needed for systolic blood pressure greater than 180 or diastolic blood pressure greater than 100 -If you feel lightheaded or dizzy or chest pain go to emergency room -Follow-up with wound care continue daily wound care -Continue antibiotics for cellulitis -Take insulin as prescribed -Please take Lasix 40 mg daily with potassium replacement therapy recheck kidney function next week -Discharged with event monitor -Please monitor your blood sugars closely -Monitor your blood sugars 3 times daily as after meals -Please record your blood sugars, and a blood sugar log -For your NovoLog -Please inject blood sugar after meals based on sliding scale provided -Do not inject insulin if you do not eat as hypoglycemia kills -This is a NovoLog sliding scale -Insulin sliding ?fingerstick? Insulin ?141-180?0 units/sq 181-220?2 units/sq ?221-260?4 units/sq ?261-300 6 units/sq ?301-350?8 units/sq ?351-400 10 units/sq ?401-450?12 units/sq >450? 14units/sq -If your blood sugar is greater than 500 go to the emergency room -If your blood sugar is less than 60 or at anytime you feel lightheaded or dizzy or diaphoretic or have chest palpitations check your blood sugar, and eat a hard candy or drink orange juice and go immediately to the emergency room -Remember hypoglycemia kills, so if his blood sugar is less than 60 we have to increase it by taking in a sugary meal such as a hard candy or orange juice and go to the emergency room -If you have any questions please call us where here to help Discharge Attestations Time Spent in Discharge Care*: greater than 30 min Quality Metrics Clinical Quality Measures [ No reported AMI, CVA or VTE this stay] Coding Level of Care Code 12883 Total time (in minutes) for Discharge: 45 Diagnoses Atrial fibrillation, chronic I48.20 Tachy-brigitte syndrome I49.5 Primary hypertension I10 Hypertension type: primary hypertension Chronic diastolic heart failure I50.32 Heart failure chronicity: chronic
--- NOTE | 2024-03-19 16:08 | PC.NURSE ---
Patient discharged to home. Instruction provided regarding new medication, follow up needs and holtor monitoring. patient verbalized complete understanding. Patient denies pain or needs. Patient takenn by wheelchair to private vehicle.
== END 2024-03-19 16:11 | disposition home health service (06) | DRG 308 ==
LOC: ER 14:42 → ER IP 15:47 → ICU 16:02 → ER IP 16:17 → CSU 03-15 06:32
PROVIDERS: Admitting Provider Family Medicine; Emergency Provider Emergency Medicine; PCP Internal Medicine; Visit Provider Family Medicine
DX: I48.19 Other persistent atrial fibrillation (principal); I50.33 Acute on chronic diastolic (congestive) heart failure; I13.0 Hypertensive heart and chronic kidney disease with heart failure and stage 1 through stage 4 chronic kidney disease, or unspecified chronic kidney disease; L03.116 Cellulitis of left lower limb; L03.115 Cellulitis of right lower limb; I49.5 Sick sinus syndrome; N18.9 Chronic kidney disease, unspecified; E11.22 Type 2 diabetes mellitus with diabetic chronic kidney disease; E11.51 Type 2 diabetes mellitus with diabetic peripheral angiopathy without gangrene; Z85.3 Personal history of malignant neoplasm of breast; Z90.10 Acquired absence of unspecified breast and nipple; I25.10 Atherosclerotic heart disease of native coronary artery without angina pectoris; Z95.1 Presence of aortocoronary bypass graft; Z79.82 Long term (current) use of aspirin; Z79.02 Long term (current) use of antithrombotics/antiplatelets; Z79.01 Long term (current) use of anticoagulants; B95.62 Methicillin resistant Staphylococcus aureus infection as the cause of diseases classified elsewhere; B96.5 Pseudomonas (aeruginosa) (mallei) (pseudomallei) as the cause of diseases classified elsewhere; Z79.891 Long term (current) use of opiate analgesic; Z79.4 Long term (current) use of insulin; J44.9 Chronic obstructive pulmonary disease, unspecified; D63.1 Anemia in chronic kidney disease; Z87.891 Personal history of nicotine dependence; G47.33 Obstructive sleep apnea (adult) (pediatric); I35.0 Nonrheumatic aortic (valve) stenosis; R91.8 Other nonspecific abnormal finding of lung field
CPT/HCPCS: 36415; 36416; 71045; 71275; 73590; 80048; 80053; 80061; 80202; 81001; 82962; 83036; 83605; 83690; 83735; 83880; 84100; 84145; 84443; 84484; 85025; 85651; 86140; 87040; 87070; 87075; 87077; 87186; 87205; 93005; 93306; 96365; 96367; 96372; 96375; 96376; 99285; 99291; A4222; J0283; J1815; J1940; J2543; J2704; J3372; J3490; J7030

== ENCOUNTER 2024-03-26 09:49 | Emergency (ER) | payer MEDICARE, MEDICAID, SELFPAY ==
[2024-03-26] VITALS (13 sets, daily range): BP systolic 184–222; BP diastolic 74–113; PULSE 72–111; RESP 15–22; TEMP 37.1; O2SAT 93–98; BMI 44.9
--- NOTE | 2024-03-26 09:57 | XRR_ITS ---
PROCEDURE INFORMATION: Exam: XR Chest Exam date and time: 03/26/2024 10:00 AM Age: 68 years old Clinical indication: Pain; Chest pressure; Prior surgery; Surgery date: 6+ months; Surgery type: Lumpectomy; Coronary stent; Additional info: Chest pain TECHNIQUE: Imaging protocol: Radiologic exam of the chest. Views: 1 view. Total images: 1 COMPARISON: CT angio chest PE protcl [id number] 03/14/2024 4:35 PM chest x-ray 03/14/2024 vacuum FINDINGS: Tubes, catheters and devices: Multiple surgical clips over the left chest wall and axilla Lungs: No acute pneumonia or edema is evident. Pleural spaces: No pleural effusion identified. Heart/Mediastinum: Cardiomediastinal silhouette is stable.. Bones/joints: No acute osseous abnormality identified. XR/XR chest 1V portable [id number] IMPRESSION: No acute cardiopulmonary abnormality identified.
--- NOTE | 2024-03-26 09:58 | ECG_ITS ---
[facility] Date: 2024-03-26 Pat Name: Seema Del Rosario Department: Room: Gender: Female Pin Or Clip Fastener: : 1955 Requested By: Godwin Morrow Order Number: [id number] Jennie MD: BOB WORLEY Measurements Intervals [place] Rate: 84 P: 66 WI: 175 QRS: -39 QRSD: 160 T: 58 QT: 436 QTc: 517 Interpretive Statements SINUS RHYTHM LEFT AXIS DEVIATION [QRS AXIS < -30] RIGHT BUNDLE BRANCH BLOCK [120+ ms QRS DURATION, UPRIGHT V1, 40+ ms S IN I/aVL/V4/V5/V6] Compared to ECG 03/18/2024 15:46:26 Sinus bradycardia no longer present Electronically Signed On 03-27-2024 20:59:38 BRIGHT CUTTER by BOB WORLEY [id number]
--- NOTE | 2024-03-26 10:03 | ED_ITS ---
HPI - Chest Pain 2 General: Chief Complaint: Chest Pain Stated Complaint: chest pain Time Seen by Provider: 03/26/24 09:57 History of Present Illness: 68-year-old [facility] with complaints of intermittent episodes of chest pain. Chest pain woke her up from sleep this morning. About a week ago she had a cardioversion for persistent A-fib. She has known coronary artery disease. In January 2024 early in the month she had a stress test that was positive. On follow-up appointment cardiology notes indicates that they had decided to forego angiogram and treat medically. She not having chest pain at this time. Patient also has a stage IV breast cancer. She denies any recent flu symptoms cough or shortness of breath Associated symptoms: Deny abdominal pain, dyspnea or fever(s) Related Data Home Medications ?Medication ?Instructions ?Recorded ?Confirmed allopurinol 100 mg tablet 100 mg PO DAILY@0700 0 03/26/24 gabapentin 300 mg capsule 300 mg PO TID@07,12,19 04/2403/26/24 pantoprazole 40 mg tablet,delayed 40 mg PO QAM 3 03/26/24 release aspirin 81 mg tablet,delayed 81 mg PO DAILY 06/15/23 0 03/26/24 release rosuvastatin 20 mg tablet 20 mg PO BEDTIME 06/15/23 ferrous sulfate 325 mg (65 mg 325 mg PO BID 12/23/23 0 03/26/24 iron) tablet latanoprost 0.005 % eye drops 1 drp ophthalmic (eye) D AILY 12/23/23 03/26/24 letrozole 2.5 mg tablet 2.5 mg PO DAILY 12/23/2310/10 ondansetron HCl 4 mg tablet 4 mg PO .q 4 hr PRN Nausea And 12/23/23 03/26/24 Vomiting duloxetine 60 mg capsule,delayed 60 mg PO DAILY 03/26/24 release nystatin 100,000 unit/gram topical 1 applic topical BI D 01/25/24 03/26/24 powder (Klayesta) clopidogrel 75 mg tablet 75 mg PO DAILY 03/14/2410/10 hydrocodone 7.5 mg-acetaminophen 1 tab PO Q8H 03/14/24 03/26/24 325 mg tablet ciprofloxacin HCl 500 mg tablet 500 mg PO DAILY 03/26/24 diltiazem HCl 120 mg 120 mg PO DAILY 03/26/2410/10 capsule,extended release 24 hr isosorbide mononitrate 120 mg 120 mg PO DAILY 03/26/24 03/26/24 tablet,extended release 24 hr linezolid 600 mg tablet 600 mg PO Q12H 03/26/2410/10 losartan 25 mg tablet 25 mg PO DAILY 03/26/2410/10 metoprolol tartrate 50 mg tablet 50 mg PO BID 03/26/24 03/26/24 Previous Rx's ?Medication ?Instructions ?Recorded Surveyor Oil Well Directional brace #1 ea 08/18/22 apixaban 5 mg tablet (Eliquis) 5 mg PO BID #180 tabs 1 03/25/22 amlodipine 10 mg tablet 10 mg PO DAILY 30 days #30 t abs 03/19/24 clonidine HCl 0.3 mg tablet 0.3 mg PO BID 30 days #60 tabs 03/19/24 furosemide 40 mg tablet (Lasix) 40 mg PO DAILY 30 days #30 tabs 03/19/24 hydralazine 25 mg tablet 12.5 mg (1/2 x 25 mg) PO BID PRN 03/19/24 sbp>180 or dbp>100 30 days #30 tabs insulin degludec 100 unit/mL (3 20 unit (0.2 mL) SUBCU T BID #15 mL 03/19/24 mL) subcutaneous pen (Tresiba FlexTouch U-100 insulin) insulin lispro 100 unit/mL See Rx Instructions .Route 03/19/24 subcutaneous pen (Humalog KwikPen .COMPLEX #15 mL (U-100) Insulin) potassium chloride 10 mEq 10 meq PO DAILY 30 days #30 tabs 03/19/24 tablet,extended release(part/cryst) (Klor-Con M) amiodarone 200 mg tablet (Pacerone) 200 mg PO DAILY #9 0 tabs 03/23/24 isosorbide mononitrate 30 mg 30 mg PO DAILY #30 tabs 0 03/26/24 tablet,extended release 24 hr Allergies Allergy/AdvReac Type Severity Reaction Status Date / Time dapagliflozin (From [facility]) Allergy Intermediate ADR-Itching Verified 03/23/24 12:58 empagliflozin (From Allergy Intermediate ADR-Itching Verified 03/23/24 12:58 Jardiance) anastrozole Allergy ALGY-Joint Verified 03/23/24 12:58 Pain Review of Systems 2 Const: Denies: fever(s) or chills Card: Denies: chest pain Resp: Denies: dyspnea GI: Denies: abdominal pain : Denies: dysuria, urinary frequency or urinary urgency Musc: Denies: neck pain or back pain Skin/Breast: Denies: rash PFSH ED 2 PFSH: Medical History CKD (chronic kidney disease) Atherosclerosis of coronary artery of [place] heart without angina pectoris Peripheral arterial disease Lower extremity edema Leg pain Chronic venous insufficiency Chronic obstructive pulmonary disease Atrial fibrillation, chronic Diastolic heart failure Anemia Screen for colon cancer History of breast cancer Diabetes Hypertension Surgical History History of esophagogastroduodenoscopy (EGD) (~08/2019) dr. zacarias [facility] [place]. History of colonoscopy with polypectomy (~08/2019) [facility]. History of carpal tunnel release of both wrists History of coronary angioplasty with insertion of stent History of coronary artery balloon dilation History of lumpectomy Family History Father CAD (coronary artery disease), Onset Age: 50 Cancer Diabetes Hyperlipidemia Hypertension Lung disease Denies family history of Clotting disorder Dementia Psychiatric illness Chronic kidney disease (CKD) Suicide Anesthesia complication Bleeding disorder Stroke Social History Smoking and tobacco/nicotine status: former use of tobacco/nicotine Quit status (tobacco/nicotine): has quit using Year quit tobacco: 2016 - 2PPD x 40 Years Alcohol intake: never Substance/Drug Use: never Lives independently: Yes Household members: spouse Marital status: Current occupational status: retired Do you think of yourself as: Straight/Heterosexual Current gender identity: Female Physical Exam 2 Const: GENERAL APPEARANCE: cooperative ORIENTATION/CONSCIOUSNESS: Yes awake, Yes oriented to person, Yes oriented to place and Yes oriented to time HENMT: COMMON NORMALS: normocephalic, atraumatic and hearing grossly normal bilaterally HEAD & SCALP: normocephalic and atraumatic Resp: COMMON NORMALS: normal respiratory effort, No retractions, No use of accessory muscles and clear to auscultation bilaterally AUSCULTATION: clear to auscultation bilaterally Cardio: COMMON NORMALS: regular rate, regular rhythm and No murmurs present (Cardio) RATE: regular rate RHYTHM: regular rhythm GI: COMMON NORMALS: Soft to palpation and No hepatosplenomegaly present A USCULTATION: Yes normoactive bowel sounds PALPATION: Yes Soft to palpation, No Tenderness to palpation present (GI), No Guarding due to palpation present (GI) and Yes No hepatosplenomegaly present Extremity: COMMON NORMALS: normal to inspection, capillary refill normal, no clubbing, cyanosis or edema, no calf tenderness and no pedal edema Neuro: SENSORIUM/ORIENTATION: Yes oriented to person, Yes oriented to place and Yes oriented to time Skin: COMMON NORMALS: no rashes or lesions noted GENERAL SKIN EXAM: no rashes or lesions noted Course 2 Vital Signs: Vital signs: Vital Signs Temperature 98.7 F 03/26/24 09:52 Pulse Rate 87 03/26/24 13:41 Respiratory Rate 18 03/26/24 13:41 Blood Pressure 200/101 03/26/24 13:41 Pulse Oximetry 96 03/26/24 13:41 Oxygen Delivery Me thod Room Air 03/26/24 09:52 MDM - Chest Pain Medical Decision Making Discussed with the patient and her family she still does not wish to go forward with any kind of invasive treatment prefers to continue medical management. She is also having her cancer status monitored by oncology has a follow-up appointment next week. She is not having chest pain at this time. Will start her on isosorbide mononitrate her blood pressure certainly looks like it well- tolerated. Her heart rate is well-controlled she is in a sinus rhythm at this time is no acute changes. No changes from previous EKG. Patient advised to return if she has change of symptoms or wishes to pursue more aggressive therapies. Medical Records I reviewed the patient's medical records. Lab Data I reviewed the patient's lab results. 03/26/24 09:23 03/26/24 09:23 Radiology Impressions Chest X-Ray 03/26/24 09:57 IMPRESSION: No acute cardiopulmonary abnormality identified. Laboratory Results WBC 8.79 10^3/uL (3.29-11.43) 03/26/24 09: RBC 4.24 10^6/uL (3.85-5.65) 03/26/24 09:23 Hgb 11.70 g/dL (11.27-16.99) 03/26/24 09: Hct 37.5 % (36-47) 03/26/24 09: MCV 88.4 fl (85-98) 03/26/24 09:23 MCH 27.6 pg (27-33) 03/26/24 09: MCHC 31.2 g/dL (30-55) 03/26/24 09: RDW 15.6 % (12.1-15.1) H 03/26/24 09:23 Plt Count 302 10^3/cmm (157-399) 03/26/24 09: MPV 9.2 fL (7.4-10.4) 03/26/24 09:23 Neut % (Auto) 80.8 % 03/26/24 09: Lymph % (Auto) 12.2 % 03/26/24 09:23 [place] % (Auto) 4.6 % 03/26/24 09:23 Eos % (Auto) 1.4 % 03/26/24 09: Baso % (Auto) 0.7 % 03/26/24 09: Neut # (Auto) 7.11 10^3/uL (1.8-7.7) 03/26/24 09: Lymph # (Auto) 1.1 10^3/uL (0.8-4.8) 03/26/24 09:23 Alpine # (Auto) 0.4 10^3/uL (0.2-0.9) 03/26/24 09: Eos # (Auto) 0.1 10^3/uL (0.0-0.8) 03/26/24 09:23 Baso # (Auto) 0.1 10^3/uL (0.0-0.1) 03/26/24 09: Nucleated RBC % (auto) 0 % 03/26/24 09: Nucleated RBCs # 0.0 /100WBC 03/26/24 09:23 Sodium 139 mmol/L (136-145) 03/26/24 09:23 Potassium 3.9 mmol/L (3.5-5.1) 03/26/24 09:23 Chloride 101 mmol/L (98-107) 03/26/24 09:23 Carbon Dioxide 25 mmol/L (22-29) 03/26/24 09:23 Anion Gap 16.9 (5-19) 03/26/24 09:23 BUN 13 mg/dL (8-23) 03/26/24 09:23 Creatinine 0.9 mg/dL (0.5-0.9) 03/26/24 09:23 GFR Calculation 62.3 mL/min (90-130) L 03/26/24 09:23 Glucose 248 mg/dL (65-115) H 03/26/24 09:23 Calculated Osmolality 296 mOsm/kg (285-295) H 03/26/24 09:23 Calcium 8.6 mg/dL (8.5-10.5) 03/26/24 09:23 Total Bilirubin 0.3 mg/dL (0.15-1.2) 03/26/24 09:23 AST 18 U/L (0-32) 03/26/24 09:23 ALT 16 U/L (0-33) 03/26/24 09:23 Alkaline Phosphatase 98 U/L (35-105) 03/26/24 09:23 Troponin T Baseline 22 ng/L (0-10) H 03/26/24 09:23 Troponin T 120 Minute 19.47 ng/L (0-10) H 03/26/24 11:33 Delta Troponin T -2.53 ABS# (0-10) L 03/26/24 11:33 Total Protein 6.5 g/dL (6.6-8.7) L 03/26/24 09:23 Albumin 3.3 g/dL (3.5-5.2) L 03/26/24 09:23 Globulin 3.2 g/dL (1.3-4.6) 03/26/24 09:23 All radiology interpretation(s) finalized by discharge Discharge Plan Discharge Patient Disposition: Home Clinical Impression: Chest pain due to CAD Malignant neoplasm of lower-outer quadrant of left female breast Qualifiers: Estrogen receptor status: unspecified Qualified Code(s): C50.512 - Malignant neoplasm of lower-outer quadrant of left female breast Aortic stenosis Qualifiers: Cardiac valve disease etiology: nonrheumatic Qualified Code(s): I35.0 - Nonrheumatic aortic (valve) stenosis Condition: Stable Prescriptions: New isosorbide mononitrate 30 mg tablet extended release 24 hr 30 mg PO DAILY Qty: 30 0RF No Action Eliquis 5 mg tablet 5 mg PO BID Qty: 180 3RF latanoprost 0.005 % drops 1 drp ophthalmic (eye) DAILY ondansetron HCl 4 mg tablet 4 mg PO .q 4 hr PRN (Reason: Nausea And Vomiting) ferrous sulfate 325 mg (65 mg iron) tablet 325 mg PO BID letrozole 2.5 mg tablet 2.5 mg PO DAILY amiodarone [Pacerone] 200 mg tablet 200 mg PO DAILY Qty: 90 3RF (DME) Surveyor Oil Well Directional brace See Rx Instructions .Route .MEDSUPPLY Qty: 1 0RF Rx Instructions: As directed allopurinol 100 mg tablet 100 mg PO DAILY@0700 gabapentin 300 mg capsule 300 mg PO TID@07,12,19 pantoprazole 40 mg tablet,delayed release (DR/EC) 40 mg PO QAM nystatin [Klayesta] 100,000 unit/gram powder 1 applic TOPICAL BID duloxetine 60 mg capsule,delayed release(DR/EC) 60 mg PO DAILY ciprofloxacin HCl 500 mg tablet 500 mg PO DAILY linezolid 600 mg tablet 600 mg PO Q12H losartan 25 mg tablet 25 mg PO DAILY metoprolol tartrate 50 mg tablet 50 mg PO BID diltiazem HCl 120 mg capsule,extended release 24hr 120 mg PO DAILY isosorbide mononitrate 120 mg tablet extended release 24 hr 120 mg PO DAILY aspirin 81 mg tablet,delayed release (DR/EC) 81 mg PO DAILY rosuvastatin 20 mg tablet 20 mg PO BEDTIME hydrocodone-acetaminophen 7.5-325 mg tablet 1 tab PO Q8H clopidogrel 75 mg tablet 75 mg PO DAILY Rx Instructions: TAKE 1 TABLET BY MOUTH EVERY DAY amlodipine 10 mg Tablet 10 mg PO DAILY 30 Days Qty: 30 0RF clonidine HCl 0.3 mg tablet 0.3 mg PO BID 30 Days Qty: 60 0RF insulin lispro [Humalog KwikPen Insulin] 100 unit/mL insulin pen See Rx Instructions .ROUTE .COMPLEX Qty: 15 0RF Rx Instructions: Inject, subcut, 3 times daily, after meals, based on sliding scale provided insulin degludec [Tresiba FlexTouch U-100] 100 unit/mL (3 mL) insulin pen 20 unit SUBCUT BID Qty: 15 0RF hydralazine 25 mg tablet 12.5 mg PO BID PRN (Reason: sbp>180 or dbp>100) 30 Days Qty: 30 0RF furosemide [Lasix] 40 mg tablet 40 mg PO DAILY 30 Days Qty: 30 0RF potassium chloride [Klor-Con M10] 10 mEq tablet,ER particles/crystals 10 meq PO DAILY 30 Days Qty: 30 0RF Discharge Orders: Discharge ED (Routine); Ordered 03/26/24 Ordered By: Godwin Mclaughlin Referrals: Jeanine Solares MD [Primary Care Provider] - Discharge Diet: Usual diet Discharge Activity: Increase activity as tolerated Patient Instructions: Opioid Safety, Pain Management Activity Restrictions/Additional Instructions: Thank you for choosing [facility] for your healthcare needs today. It is very important that you follow up as instructed or that you return to the Emergency Department should you have concerns or if your condition changes or worsens in any way. You are seen emergency room complaint of chest pain. Your EKG did not show any changes your cardiac enzymes are normal. Approximately 16 months ago you had a positive cardiac stress test according to your cardiology office notes you had elected to treat medically. We discussed today annual expressed a desire to continue to treat medically. Recommend you start isosorbide mononitrate 30 mg once daily. If pain becomes persistent and uncontrolled return to the emergency room we can reevaluate. 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
[2024-03-26 10:35] LABS: Basophils # 0.1 10^3/uL (0.0-0.1); Basophils % 0.7 %; Eosinophils # 0.1 10^3/uL (0.0-0.8); Eosinophils % 1.4 %; Hematocrit 37.5 % (36-47); Lymphocytes # 1.1 10^3/uL (0.8-4.8); Lymphocytes % 12.2 %; Mean Corpuscular HGB Conc 31.2 g/dL (30-55); Mean Corpuscular Hemoglobin 27.6 pg (27-33); Mean Corpuscular Volume 88.4 fl (85-98); Mean Platelet Volume 9.2 fL (7.4-10.4); Monocytes # 0.4 10^3/uL (0.2-0.9); Monocytes % 4.6 %; Neutrophils # 7.11 10^3/uL (1.8-7.7); Neutrophils % 80.8 %; Nucleated Red Blood Cells % 0 %; Platelet Count 302 10^3/cmm (157-399); Red Blood Count 4.24 10^6/uL (3.85-5.65); Red Cell Distribution Width 15.6 % (12.1-15.1); White Blood Count 8.79 10^3/uL (3.29-11.43)
[2024-03-26 10:53] LABS: Troponin(5th) Baseline 22 ng/L (0-10)
[2024-03-26 10:56] LABS: Alanine Aminotransferase 16 U/L (0-33); Albumin Level 3.3 g/dL (3.5-5.2); Alkaline Phosphatase 98 U/L (35-105); Anion Gap 16.9 (5-19); Aspartate Amino Transferase 18 U/L (0-32); Blood Urea Nitrogen 13 mg/dL (8-23); Calcium 8.6 mg/dL (8.5-10.5); Carbon Dioxide 25 mmol/L (22-29); Chloride 101 mmol/L (98-107); Creatinine Clr Calc Pharmacy 78.5664; Globulin 3.2 g/dL (1.3-4.6); Glomerular Filtration Rate 62.3 mL/min (90-130); Glucose 248 mg/dL (65-115); Osmolality Calculated 296 mOsm/kg (285-295); Potassium 3.9 mmol/L (3.5-5.1); Sodium 139 mmol/L (136-145); Total Bilirubin 0.3 mg/dL (0.15-1.2); Total Protein 6.5 g/dL (6.6-8.7)
[2024-03-26 12:01] LABS: Troponin 5 2HR 19.47 ng/L (0-10)
[2024-03-26 12:02] LABS: Troponin 5 2HR Delta -2.53 ABS# (0-10)
[2024-03-26] MEDS: hyDRALAzine 20 mg/mL INJ 1 mL 10 MG IVP (13:39)
[2024-03-26] MEDS: metoprolol tartrate 50 mg Tablet PO (14:18)
[2024-03-26] MEDS: hyDRALAzine 25 mg Tablet PO (14:18)
[2024-03-26] MEDS: isosorbide mononitrate ER 60 mg Tablet 120 MG PO (14:18)
[2024-03-26] MEDS: amiodarone 200 mg Tablet PO (14:18)
[2024-03-26] MEDS: FUROsemide 40 mg Tablet PO (14:19)
[2024-03-26] MEDS: amlodipine 10 mg Tablet PO (14:19)
== END 2024-03-26 15:10 | disposition home or self-care (01) ==
PROVIDERS: Emergency Provider Family Medicine; PCP Internal Medicine
DX: I25.10 Atherosclerotic heart disease of native coronary artery without angina pectoris (principal); C50.512 Malignant neoplasm of lower-outer quadrant of left female breast; Z79.01 Long term (current) use of anticoagulants; I35.0 Nonrheumatic aortic (valve) stenosis; Z79.82 Long term (current) use of aspirin; Z79.4 Long term (current) use of insulin; Z87.891 Personal history of nicotine dependence; E11.9 Type 2 diabetes mellitus without complications; I11.0 Hypertensive heart disease with heart failure; I50.9 Heart failure, unspecified
CPT/HCPCS: 36415; 71045; 80053; 84484; 85025; 93005; 96374; 99285; J0360

== ENCOUNTER → 2024-04-14 10:26 | Outpatient (BNVA) | payer MEDICARE, MEDICAID, SELFPAY | PROVIDERS: PCP Internal Medicine; Visit Provider Thoracic Surgery (Cardiothoracic Vascular Surgery) | DX: E11.52 Type 2 diabetes mellitus with diabetic peripheral angiopathy with gangrene (principal); E11.622 Type 2 diabetes mellitus with other skin ulcer; L97.822 Non-pressure chronic ulcer of other part of left lower leg with fat layer exposed; L97.811 Non-pressure chronic ulcer of other part of right lower leg limited to breakdown of skin; I87.2 Venous insufficiency (chronic) (peripheral) | CPT/HCPCS: 11042; 97597 ==

== ENCOUNTER → 2024-04-20 10:41 | Outpatient (BNVA) | payer MEDICARE, MEDICAID, SELFPAY | PROVIDERS: PCP Internal Medicine; Visit Provider Thoracic Surgery (Cardiothoracic Vascular Surgery) | DX: E11.52 Type 2 diabetes mellitus with diabetic peripheral angiopathy with gangrene (principal); E11.622 Type 2 diabetes mellitus with other skin ulcer; L97.821 Non-pressure chronic ulcer of other part of left lower leg limited to breakdown of skin; I87.2 Venous insufficiency (chronic) (peripheral); L97.811 Non-pressure chronic ulcer of other part of right lower leg limited to breakdown of skin | CPT/HCPCS: 97597; A6197; A6253 ==

== ENCOUNTER → 2024-04-27 13:19 | Outpatient (BNVA) | payer MEDICARE, MEDICAID, SELFPAY | PROVIDERS: PCP Internal Medicine; Visit Provider Thoracic Surgery (Cardiothoracic Vascular Surgery) | DX: E11.52 Type 2 diabetes mellitus with diabetic peripheral angiopathy with gangrene (principal); E11.622 Type 2 diabetes mellitus with other skin ulcer; L97.812 Non-pressure chronic ulcer of other part of right lower leg with fat layer exposed; L97.821 Non-pressure chronic ulcer of other part of left lower leg limited to breakdown of skin; I87.2 Venous insufficiency (chronic) (peripheral) | CPT/HCPCS: 11042; 97597; 97598; A6197; A6253 ==

== ENCOUNTER → 2024-05-16 15:08 | Outpatient (BNVA) | payer MEDICARE, MEDICAID, SELFPAY | PROVIDERS: PCP Internal Medicine; Visit Provider Thoracic Surgery (Cardiothoracic Vascular Surgery) | DX: E11.52 Type 2 diabetes mellitus with diabetic peripheral angiopathy with gangrene (principal); E11.622 Type 2 diabetes mellitus with other skin ulcer; L97.821 Non-pressure chronic ulcer of other part of left lower leg limited to breakdown of skin; L97.811 Non-pressure chronic ulcer of other part of right lower leg limited to breakdown of skin; Z09 Encounter for follow-up examination after completed treatment for conditions other than malignant neoplasm | CPT/HCPCS: 97597; A6197; A6253 ==

== ENCOUNTER 2024-05-17 05:00 | Outpatient (RCR) | payer MEDICARE, SELFPAY | END 2024-06-15 23:59 | disposition home or self-care (01) | LOC: SOT 05:00 | PROVIDERS: Visit Provider Internal Medicine | DX: Z74.09 Other reduced mobility (principal) | CPT/HCPCS: 97167; 97597; A6197; A6253 ==

== ENCOUNTER → 2024-06-08 10:48 | Outpatient (BNVA) | payer MEDICARE, SELFPAY | PROVIDERS: Visit Provider Thoracic Surgery (Cardiothoracic Vascular Surgery) | DX: E11.52 Type 2 diabetes mellitus with diabetic peripheral angiopathy with gangrene (principal); E11.622 Type 2 diabetes mellitus with other skin ulcer; L97.821 Non-pressure chronic ulcer of other part of left lower leg limited to breakdown of skin; E11.621 Type 2 diabetes mellitus with foot ulcer; L97.511 Non-pressure chronic ulcer of other part of right foot limited to breakdown of skin; Z09 Encounter for follow-up examination after completed treatment for conditions other than malignant neoplasm | CPT/HCPCS: 97597; A6251 ==

== ENCOUNTER → 2024-06-15 13:14 | Outpatient (BNVA) | payer MEDICARE, SELFPAY | PROVIDERS: Visit Provider Thoracic Surgery (Cardiothoracic Vascular Surgery) | DX: E11.52 Type 2 diabetes mellitus with diabetic peripheral angiopathy with gangrene (principal); E11.622 Type 2 diabetes mellitus with other skin ulcer; L97.821 Non-pressure chronic ulcer of other part of left lower leg limited to breakdown of skin; E11.621 Type 2 diabetes mellitus with foot ulcer; L97.511 Non-pressure chronic ulcer of other part of right foot limited to breakdown of skin | CPT/HCPCS: 97597; A6021 ==

== ENCOUNTER → 2024-06-22 10:08 | Outpatient (BNVA) | payer MEDICARE, SELFPAY | PROVIDERS: PCP Internal Medicine; Visit Provider Nurse Practitioner Family | DX: I48.91 Unspecified atrial fibrillation (principal); I48.92 Unspecified atrial flutter; I35.0 Nonrheumatic aortic (valve) stenosis; Z87.891 Personal history of nicotine dependence; Z79.01 Long term (current) use of anticoagulants; Z79.82 Long term (current) use of aspirin | CPT/HCPCS: 97597; 99213 ==

== ENCOUNTER → 2024-07-06 13:38 | Outpatient (BNVA) | payer MEDICARE, SELFPAY | PROVIDERS: PCP Internal Medicine; Visit Provider Thoracic Surgery (Cardiothoracic Vascular Surgery) | DX: E11.52 Type 2 diabetes mellitus with diabetic peripheral angiopathy with gangrene (principal); E11.622 Type 2 diabetes mellitus with other skin ulcer; L97.821 Non-pressure chronic ulcer of other part of left lower leg limited to breakdown of skin; E11.621 Type 2 diabetes mellitus with foot ulcer; L97.511 Non-pressure chronic ulcer of other part of right foot limited to breakdown of skin; I87.2 Venous insufficiency (chronic) (peripheral) | CPT/HCPCS: 97597 ==

== ENCOUNTER 2024-07-13 14:18 | Inpatient (IN) | payer MEDICARE, MEDICAID, SELFPAY ==
[2024-07-13] VITALS (19 sets, daily range): BP systolic 89–171; BP diastolic 50–74; PULSE 49–65; RESP 11–24; TEMP 36.4–36.6; O2SAT 87–98; BMI 16.0
--- NOTE | 2024-07-13 14:42 | XR_ITS ---
WS: [id number] Portable AP upright chest, 07/13/2024 Clinical Data: chest pain, sob Comparison: Portable chest, 03/26/2024 Findings: There is a patchy opacity which is probably in the right upper lobe which extends from the right hilum to the pleural surface. The heart is normal. No nodules, masses or effusions are seen. There are surgical clips overlying the left costophrenic angle. The aortic arch shows mild tortuosity. The there are monitor leads on the chest wall. XR/XR chest 1V portable [id number] Impression: 1. Patchy right upper lobe opacity which could represent atelectasis and/or pne umonia and recommend repeat chest x-ray in 2 to 3 days. 2. Atherosclerosis.
--- NOTE | 2024-07-13 14:42 | ECG_ITS ---
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: : [id number] Requested By: Rohit Chappell Order Number: [id number] Jennie MD: BOB WORLEY Measurements Intervals [place] Rate: 51 P: 56 IA: 151 QRS: -33 QRSD: 167 T: 145 QT: 521 QTc: 482 Interpretive Statements SINUS BRADYCARDIA LEFT AXIS DEVIATION [QRS AXIS < -30] RIGHT BUNDLE BRANCH BLOCK [120+ ms QRS DURATION, UPRIGHT V1, 40+ ms S IN I/aVL/V4/V5/V6] SEPTAL MYOCARDIAL INFARCTION , PROBABLY OLD [40+ ms Q WAVE IN V1/V2] Compared to ECG 03/26/2024 09:55:39 Myocardial infarct finding now present Sinus rhythm no longer present Electronically Signed On 07-20-2024 22:48:12 CDT by BOB WORLEY [id number]
[2024-07-13 14:52] LABS: Basophils # 0.1 10^3/uL (0.0-0.1); Basophils % 0.5 %; Eosinophils % 0.3 %; Hematocrit 39.9 % (36-47); Lymphocytes # 2.3 10^3/uL (0.8-4.8); Lymphocytes % 17.5 %; Mean Corpuscular HGB Conc 31.1 g/dL (30-55); Mean Corpuscular Hemoglobin 25.4 pg (27-33); Mean Corpuscular Volume 81.8 fl (85-98); Mean Platelet Volume 9.4 fL (7.4-10.4); Monocytes # 0.7 10^3/uL (0.2-0.9); Monocytes % 5.2 %; Neutrophils # 9.83 10^3/uL (1.8-7.7); Neutrophils % 74.7 %; Nucleated Red Blood Cells % 0 %; Platelet Count 420 10^3/cmm (157-399); Red Blood Count 4.88 10^6/uL (3.85-5.65); Red Cell Distribution Width 15.9 % (12.1-15.1); White Blood Count 13.16 10^3/uL (3.29-11.43)
[2024-07-13 15:15] LABS: Troponin(5th) Baseline 30 ng/L (0-10)
[2024-07-13 15:22] LABS: Alanine Aminotransferase 12 U/L (0-33); Albumin Level 3.3 g/dL (3.5-5.2); Alkaline Phosphatase 107 U/L (35-105); Anion Gap 19.9 (5-19); Aspartate Amino Transferase 12 U/L (0-32); Blood Urea Nitrogen 35 mg/dL (8-23); Calcium 9.7 mg/dL (8.5-10.5); Carbon Dioxide 21 mmol/L (22-29); Chloride 98 mmol/L (98-107); Globulin 3.7 g/dL (1.3-4.6); Glomerular Filtration Rate 32.1 mL/min (90-130); Glucose 90 mg/dL (65-115); NT Pro B Type Natriuretic Pept 5916 pg/mL (0-125); Osmolality Calculated 288 mOsm/kg (285-295); Potassium 3.9 mmol/L (3.5-5.1); Sodium 135 mmol/L (136-145); Total Bilirubin 0.2 mg/dL (0.15-1.2)
--- NOTE | 2024-07-13 15:43 | W.ED.CHESTPA ---
HPI - Chest Pain General: Chief Complaint: Chest Pain Stated Complaint: chest pressure Time Seen by Provider: 07/13/24 14:31 History of Present Illness: 68-year-old female reports yesterday she was feeling a little bit unwell but nothing specific. Today around lunch she started having tightness across her chest and into her back. She felt short of breath. EMS was called and when they arrived she had an oxygen saturation of 87% and systolic blood pressure in the 90s. The patient does have a relevant past medical history of atrial fibrillation and takes antiarrhythmics along with aspirin and Eliquis which she has been compliant with. She does smoke cigarettes about 7/day. She is a diabetic. She does have some sleep apnea and uses a CPAP at night. She reports she does not feel like she has any chest congestion and has not been coughing anything up. When I examined the patient she was requiring 3-1/2 L of oxygen by nasal cannula. She does not use any oxygen at home. She does feel very fatigued. No GI symptoms. Associated symptoms: Deny abdominal pain, fever(s), nausea, syncope or vomiting Related Data Home Medications ?Medication ?Instructions ?Recorded ?Confirmed allopurinol 100 mg tablet 100 mg PO DAILY@0700 04/25/19 06/22/24 gabapentin 300 mg capsule 300 mg PO TID@,,04/25/19 06/22/24 pantoprazole 40 mg tablet,delayed 40 mg PO QAM 10/15/22 06/22/24 release aspirin 81 mg tablet,delayed 81 mg PO DAILY 06/15/23 06/22/24 release rosuvastatin 20 mg tablet 20 mg PO BEDTIME 06/15/23 06/22/24 ferrous sulfate 325 mg (65 mg 325 mg PO BID 12/23/23 06/22/24 iron) tablet latanoprost 0.005 % eye drops 1 drp ophthalmic (eye) DAILY 12/23/23 06/22/24 letrozole 2.5 mg tablet 2.5 mg PO DAILY 12/23/23 06/22/24 ondansetron HCl 4 mg tablet 4 mg PO .q 4 hr PRN Nausea And 12/23/23 06/22/24 Vomiting duloxetine 60 mg capsule,delayed 60 mg PO DAILY 01/25/24 06/22/24 release nystatin 100,000 unit/gram topical 1 applic topical BID 01/25/24 06/22/24 powder (Klayesta) hydrocodone 7.5 mg-acetaminophen 1 tab PO Q8H 03/14/24 06/22/24 325 mg tablet diltiazem HCl 120 mg 120 mg PO DAILY 03/26/24 06/22/24 capsule,extended release 24 hr isosorbide mononitrate 120 mg 120 mg PO DAILY 03/26/24 06/22/24 tablet,extended release 24 hr linezolid 600 mg tablet 600 mg PO Q12H 03/26/24 06/22/24 losartan 25 mg tablet 25 mg PO DAILY 03/26/24 06/22/24 metoprolol tartrate 50 mg tablet 50 mg PO BID 03/26/24 06/22/24 Previous Rx's ?Medication ?Instructions ?Recorded [employer] 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 ea 08/18/22 apixaban 5 mg tablet (Eliquis) 5 mg PO BID #180 tabs 01/22/23 clonidine HCl 0.3 mg tablet 0.3 mg PO BID 30 days #60 tabs 03/19/24 insulin degludec 100 unit/mL (3 20 unit (0.2 mL) SUBCUT BID #15 mL 03/19/24 mL) subcutaneous pen (Tresiba FlexTouch U-100 insulin) insulin lispro 100 unit/mL See Rx Instructions .Route 03/19/24 subcutaneous pen (Humalog KwikPen .COMPLEX #15 mL (U-100) Insulin) amiodarone 200 mg tablet (Pacerone) 200 mg PO DAILY #90 tabs 03/23/24 isosorbide mononitrate 30 mg 30 mg PO DAILY #30 tabs 03/26/24 tablet,extended release 24 hr pentoxifylline 400 mg 400 mg PO TID #90 tabs 05/16/24 tablet,extended release Allergies Allergy/AdvReac Type Severity Reaction Status Date / Time dapagliflozin (From [facility]) Allergy Intermediate ADR-Itching Verified 06/22/24 10:30 empagliflozin (From Allergy Intermediate ADR-Itching Verified 06/22/24 10:30 Jardiance) anastrozole Allergy ALGY-Joint Verified 06/22/24 10:30 Pain Review of Systems General: Reports: 10 or more systems reviewed and unremarkable except in HPI and below Const: Denies: fever(s), chills or body aches Eyes: Denies: change in vision ENMT: Denies: throat pain Card: Denies: chest pain, edema or syncope Resp: Denies: productive cough GI: Denies: abdominal pain, nausea, vomiting or diarrhea : Denies: flank pain, dysuria or urinary frequency Musc: Denies: neck pain, back pain, extremity pain or extremity swelling Skin/Breast: Denies: rash or erythema Neuro: Denies: headache(s), numbness in extremities, weakness in extremities, lack of coordination or difficulty walking PFSH ED PFSH: Medical History CKD (chronic kidney disease) Atherosclerosis of coronary artery of [place] without angina pectoris Peripheral arterial disease Lower extremity edema Leg pain Chronic venous insufficiency Chronic obstructive pulmonary disease Atrial fibrillation, chronic Diastolic heart failure Anemia Screen for colon cancer History of breast cancer Diabetes Hypertension Surgical History History of esophagogastroduodenoscopy (EGD) (~08/2019) [place] [facility] [place] of colonoscopy with polypectomy (~08/2019) [facility]. History of carpal tunnel release of both wrists History of coronary angioplasty with insertion of stent History of coronary artery balloon dilation History of lumpectomy Family History Father CAD (coronary artery disease), Onset Age: 50 Cancer Diabetes Hyperlipidemia Hypertension Lung disease Denies family history of Clotting disorder Dementia Psychiatric illness Chronic kidney disease (CKD) Suicide Anesthesia complication Bleeding disorder Stroke Social History Smoking and tobacco/nicotine status: former use of tobacco/nicotine Quit status (tobacco/nicotine): has quit using Year quit tobacco: 2016 - 2PPD x 40 Years Alcohol intake: never Substance/Drug Use: never Lives independently: Yes Household members: spouse Marital status: Current occupational status: retired Do you think of yourself as: Straight/Heterosexual Current gender identity: Female Physical Exam Narrative: EXAM NARRATIVE: This is a pleasant 68-year-old female who is in no apparent distress on arrival to the room. She does appear deconditioned and older than her stated age. Her respiratory rate is upper limits of normal. She does sound like she has some slightly diminished breath sounds and some chest congestion without rigoberto wheezes or rales. Her abdomen is soft and nontender. She has woody edema of both lower extremities that she reports is chronic and unchanged, in fact better than usual. She has decreased peripheral pulses. I cannot appreciate her radial pulses. Her blood pressure is soft. She is on 3 and half liters of oxygen by nasal cannula satting 97%. Her heart rate is low but regular during exam. Const: COMMON NORMALS: no limitations, alert and well nourished EXAM LIMITATIONS: no altered mental status HENMT: COMMON NORMALS: normocephalic, atraumatic and external ears normal HEAD & SCALP: normocephalic and atraumatic EXTERNAL EAR: Yes external ears normal MOUTH: no muffled voice Eye: COMMON NORMALS: EOMs intact bilaterally, conjunctivae normal and no scleral icterus CONJUNCTIVA: Yes conjunctivae normal Neck/C-Spine: COMMON NORMALS: no JVD GENERAL: Yes normal visual inspection and Yes trachea midline Resp: COMMON NORMALS: normal respiratory effort Cardio: COMMON NORMALS: no JVD and regular rhythm RHYTHM: regular rhythm GI: COMMON NORMALS: Soft to palpation and non-tender PALPATION: Yes Soft to palpation and No Guarding due to palpation present (GI) Neuro: COMMON NORMALS: moves all extremities, no focal motor deficits and no sensory deficits noted SENSORIUM/ORIENTATION: Yes alert SPEECH: speech normal Psych: COMMON NORMALS: mental status grossly normal, Normal thought process present, cooperative, normal affect and speech normal SPEECH: Yes normal speech THOUGHT PROCESS: Normal thought process present Skin: COMMON NORMALS: no rashes or lesions noted, turgor normal and no jaundice GENERAL SKIN EXAM: no rashes or lesions noted and turgor normal Course Vital Signs: Vital signs: Vital Signs Temperature 97.5 F L 07/13/24 14:24 Pulse Rate 50 L 07/13/24 15:36 Respiratory Rate 20 H 07/13/24 14:24 Blood Pressure 89/56 07/13/24 15:36 Pulse Oximetry 98 07/13/24 15:36 Oxygen Delivery Me thod Room Air 07/13/24 15:36 MDM - Chest Pain Medical Decision Making Patient may be presenting with sepsis. Although she does not have classic pneumonia symptoms this would be of high concern. Pulmonary embolism is possible although the patient is on aspirin and Eliquis. ACS with congestive heart failure is also a consideration. An EKG was obtained on arrival at 1431. EP interpretation shows a sinus bradycardia, normal IN interval, QRS is widened at 167 ms with a pretty remarkable right bundle branch block pattern, there are some nonspecific ST changes but nothing sequential or concerning to suggest an active ischemia. Some nonspecific T wave changes are also present. COPD, bronchitis, pulmonary hypertension, hypercapnia all consideration. Pleural effusion, malignancy, aspiration also on differential. Update White blood cell count was elevated. Neutrophil percentage is essentially normal. D-dimer is minimally elevated. Pulmonary embolism is still in differential diagnosis, I had still give it a moderate probability. Patient's anion gap and bicarb are elevated with a normal glucose. She has some other sort of acidosis. ABG is pending. Creatinine and BUN are both elevated. DANYA is present. Chest x-ray 1 view was obtained. EP interpretation: Fullness in the right hilar region and infiltrate in the right middle lobe Blood cultures and lactic acid will be obtained Patient will be treated with Zosyn since she is exhibiting signs of sepsis and may have aspiration. Discussed with patient, patient's daughter, hospitalist. We are going to continue with a CT scan of her chest for further evaluation. Patient will receive a ideal body weight fluid resuscitation as her BMI is 39. Norepinephrine will be ordered as a as needed for persistent hypotension despite adequate fluid resuscitation. 1555 Patient's hemodynamic status was reevaluated after initiation of IV fluids. Heart rate, radial pulse, capillary refill, respiratory rate, blood pressure, mental status were all evaluated. Patient will be admitted to the [facility]. Medical Records I reviewed the patient's medical records. Lab Data I reviewed the patient's lab results. 07/13/24 14:00 07/13/24 14:00 Radiology Impressions Chest X-Ray 07/13/24 14:42 Impression: 1. Patchy right upper lobe opacity which could represent atelectasis and/or pneumonia and recommend repeat chest x-ray in 2 to 3 days. 2. Atherosclerosis. Laboratory Results WBC 13.16 10^3/uL (3.29-11.43) H 07/13/24 14:00 RBC 4.88 10^6/uL (3.85-5.65) 07/13/24 14:00 Hgb 12.40 g/dL (11.27-16.99) 07/13/24 14:00 Hct 39.9 % (36-47) 07/13/24 14:00 MCV 81.8 fl (85-98) L 07/13/24 14:00 MCH 25.4 pg (27-33) L 07/13/24 14:00 MCHC 31.1 g/dL (30-55) 07/13/24 14:00 RDW 15.9 % (12.1-15.1) H 07/13/24 14:00 Plt Count 420 10^3/cmm (157-399) H 07/13/24 14:00 MPV 9.4 fL (7.4-10.4) 07/13/24 14:00 Neut % (Auto) 74.7 % 07/13/24 14:00 Lymph % (Auto) 17.5 % 07/13/24 14:00 [place] % (Auto) 5.2 % 07/13/24 14:00 Eos % (Auto) 0.3 % 07/13/24 14:00 Baso % (Auto) 0.5 % 07/13/24 14:00 Neut # (Auto) 9.83 10^3/uL (1.8-7.7) H 07/13/24 14:00 Lymph # (Auto) 2.3 10^3/uL (0.8-4.8) 07/13/24 14:00 [place] # (Auto) 0.7 10^3/uL (0.2-0.9) 07/13/24 14:00 Eos # (Auto) 0.0 10^3/uL (0.0-0.8) 07/13/24 14:00 Baso # (Auto) 0.1 10^3/uL (0.0-0.1) 07/13/24 14:00 Nucleated RBC % (auto) 0 % 07/13/24 14:00 Nucleated RBCs # 0.0 /100WBC 07/13/24 14:00 D-Dimer 1.30 ug/mLFEU (0-0.59) H 07/13/24 14:00 Sodium 135 mmol/L (136-145) L 07/13/24 14:00 Potassium 3.9 mmol/L (3.5-5.1) 07/13/24 14:00 Chloride 98 mmol/L (98-107) 07/13/24 14:00 Carbon Dioxide 21 mmol/L (22-29) L 07/13/24 14:00 Anion Gap 19.9 (5-19) H 07/13/24 14:00 BUN 35 mg/dL (8-23) H 07/13/24 14:00 Creatinine 1.6 mg/dL (0.5-0.9) H 07/13/24 14:00 GFR Calculation 32.1 mL/min (90-130) L 07/13/24 14:00 Glucose 90 mg/dL (65-115) 07/13/24 14:00 Calculated Osmolality 288 mOsm/kg (285-295) 07/13/24 14:00 Calcium 9.7 mg/dL (8.5-10.5) 07/13/24 14:00 Total Bilirubin 0.2 mg/dL (0.15-1.2) 07/13/24 14:00 AST 12 U/L (0-32) 07/13/24 14:00 ALT 12 U/L (0-33) 07/13/24 14:00 Alkaline Phosphatase 107 U/L (35-105) H 07/13/24 14:00 Troponin T Baseline 30 ng/L (0-10) H 07/13/24 14:00 NT-Pro-B Natriuret Pep 5916 pg/mL (0-125) H 07/13/24 14:00 Total Protein 7.0 g/dL (6.6-8.7) 07/13/24 14:00 Albumin 3.3 g/dL (3.5-5.2) L 07/13/24 14:00 Globulin 3.7 g/dL (1.3-4.6) 07/13/24 14:00 XR interpretation done by ED provider, pending radiology final review Critical Care Time Critical Care Time: Critical Care Time: Yes Total Critical Care Time: 45 Attestation: This case had a high probability of a clinically significant, sudden, or life threatening deterioration of this patient's condition which required my full and direct attention, intervention and personal management. 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
[2024-07-13] MEDS: sodium chloride 0.9% 1,710 ML 1710 ML IV (15:45)
--- NOTE | 2024-07-13 15:47 | CTR_ITS ---
PROCEDURE INFORMATION: Exam: CTA Chest With Contrast Exam date and time: 07/13/2024 5:22 PM Age: 68 years old Clinical indication: Chest wall pain; Additional info: Abnormal cxr, hypotension, smoker, chest pain TECHNIQUE: Imaging protocol: Computed tomographic angiography of the chest with contrast. Exam focused on the arteries. 3D rendering (Not supervised by radiologist): MIP and/or 3D reconstructed images were created by the technologist. Radiation optimization: All CT scans at this facility use at least one of these dose optimization techniques: automated exposure control; mA and/or kV adjustment per patient size (includes targeted exams where dose is matched to clinical indication); or iterative reconstruction. Contrast material: OMNIPAQUE 350; Contrast volume: 100 ml; Contrast route: INTRAVENOUS (IV); COMPARISON: CT angio chest PE protcl [id number] 03/14/2024 4:35 PM RADIATION DOSE METRICS: Total DLP (mGy-cm): 525.01 FINDINGS: Pulmonary arteries: No evidence of pulmonary embolism. Aorta: Scattered atherosclerotic plaquing of the thoracic aorta without aneurysm or dissection. Lungs: Extensive consolidation with air bronchograms in the anterior segment of the right upper lobe consistent with pneumonia. Pleural spaces: Unremarkable. No pneumothorax. No pleural effusion. Heart: Mild cardiomegaly. Coronary arteries: Extensive atherosclerotic coronary artery calcifications. Lymph nodes: Unremarkable. No enlarged lymph nodes. Adrenal glands: Right adrenal gland mass measuring 4.7 x 5.8 cm in the axial plane which is slightly increased in size since 2019 suggestive of slow growing benign lesion. This can be further characterized with dedicated adrenal gland MRI on a nonemergent basis if clinically warranted. Lesion with macroscopic fat in the left adrenal gland measuring 2.6 x 3 cm most consistent with myelolipoma. Bones/joints: Unremarkable. No acute fracture. Soft tissues: Postsurgical changes in the left breast. CT/CT angio chest PE protcl [id number] IMPRESSION: 1. No evidence of pulmonary embolism. 2. Scattered atherosclerotic plaquing of the thoracic aorta without aneurysm or dissection. 3. Extensive consolidation with air bronchograms in the anterior segment of the right upper lobe consistent with pneumonia. 4. Extensive atherosclerotic coronary artery calcifications. 5. Right adrenal gland mass measuring up to 5.8 cm which is slightly increased in size since 2020 suggestive of slow growing benign lesion. This can be further characterized with dedicated adrenal gland MRI on a nonemergent basis if clinically warranted. 6. Lesion with macroscopic fat in the left adrenal gland measuring up to 3 cm, most consistent with myelolipoma.
[2024-07-13 16:03] LABS: Base Excess ABG -3.9 mmol/L (-2.0-2.0); Blood Gas Operator Identificat AMH; Blood Gas Sample Site Brachial, left; Blood Gas Sample Type Arterial; Oxygen Device NC; Potassium Level - ABG 3.6 mmol/L (3.5-5.0)
[2024-07-13 16:05] LABS: ABG PCO2 38.4 mmHg (35-45); ABG PH Result 7.35 (7.35-7.45); Alveolar-Arterial Oxygen Gradi 12.7 mmHg (5-10); Arterial Blood Gas Hematocrit 35.9 % (37-47); Carboxyhemoglobin 2.5 %THgb (0.4-20.1); HCO3 ABG 21.3 mmol/L (22-26); HGB O2 Sat 91.8 % (95-100); Ionized Calcium Level - ABG 1.2 mmol/L (1.1-1.4); Methemoglobin 0.3 % (0.4-1.5); Oxygen Saturation ABG 94.5; PO2 ABG 82.7 mmHg (80.0-100.0); PO2 FiO2 Ratio Arterial Blood 258; Total Hemoglobin 11.7 g/dL (12-16)
[2024-07-13] MEDS: piperacillin-tazobactam 3.375 GM in sodium chloride 0.9% (plus) 50 ML IV (16:13)
[2024-07-13 16:14] LABS: Phosphorus 2.8 mg/dL (2.5-4.5)
--- NOTE | 2024-07-13 16:24 | P.HP_ITS ---
Providers/Chief Complaint 2 Primary Care Provider: Jeanine Solares MD Chief Complaint: chest pressure History of Present Illness Seema Del Rosario is a 68 year old female with past medical history of hypertension, COPD, CKD, left breast CA with mets to bone, type 2 diabetes mellitus, diastolic dysfunction, mild aortic valve stenosis, chronic atrial fibrillation with history of tachybradycardia syndrome, hypertension, post cardioversion presents to the ER today because of chest tightness with started while having lunch today along with feeling short of breath and weak and tired. As per patient daughter with bedside she had a similar event on Thursday when she became very lethargic and tired all of a sudden which at that time they attributed to hypoglycemia though did not check the blood sugars or blood pressures and gradually during the day she became better. Today she had the same episode along with chest tightness so they brought to the ER. In the ER she was found to be hypoxic requiring oxygen supplementation, hypotensive with systolic of 80s requiring IV fluid bolus. Examination patient lying comfortably in bed, awake and alert, tired appearing with a blood pressure of 130 over 60 mmHg with heart rate running in mid 50s on 2 L of oxygen supplementation. Patient is still denies any nausea, vomiting, headache, choking episode, diarrhea but does complain of dizziness on and off, chest tightness prior to coming to the ER, chronic cough without any changes or increase recently. Review of Systems 2 General: Reports: 10 or more systems reviewed and unremarkable except in HPI and below Const: Denies: fever(s), chills, body aches, change in appetite, change in weight, malaise, night sweats, diaphoresis, change in sleep pattern, daytime sleepiness or snoring Eyes: Denies: change in vision, blurry vision, photophobia, eye discomfort or eye discharge ENMT: Denies: throat pain, enlarged tonsils, hoarseness, mouth pain, oral sores, dry mouth, tinnitus, nasal congestion or post nasal drip Card: Denies: chest pain, palpitations, irregular heart rhythm, edema, swelling of feet/ankles, lightheadedness, syncope, pre-syncope, dyspnea on exertion, orthopnea, leg pain with exertion or acrocyanosis Resp: Denies: dyspnea, productive cough, non-productive cough, wheezing, stridor, pain on inspiration, change in phlegm color, hemoptysis or chest congestion GI: Denies: abdominal pain, nausea, vomiting, hematemesis, coffee ground emesis, dysphagia, heartburn, diarrhea, constipation, bloating, GI cramping, change in bowel habits, pain on defecation, hematochezia or melena : Denies: flank pain, dysuria, urinary frequency, urinary urgency, urinary hesitancy, nocturia or hematuria Musc: Denies: neck pain, back pain, extremity pain, joint pain, joint swelling, joint redness, joint stiffness or limited range of motion Neuro: Denies: headache(s), numbness in extremities, weakness in extremities, sensory changes, lack of coordination, difficulty walking, frequent falls, dizziness, vertigo, confusion, Slurred speech present, difficulty communicating thoughts or seizure-like activity Psych: Denies: anxiety, depression, mood swings, panic attacks, hopelessness or irritability Endo: Denies: polyuria, polydipsia, tired all the time, cold intolerance, excessive sweating, flushing or heat intolerance Archie/Lymph: Denies: easy bruising or easy bleeding All/Imm: Denies: tongue swelling, facial swelling or acute wheezing Medications/Allergies Home Medications ?Medication ?Instructions ?Recorded ?Confirmed ?Last Taken ?Type allopurinol 100 mg tablet 100 mg PO DAILY@0700 0 06/22/24 03/14/24 History gabapentin 300 mg capsule 300 mg PO TID@07,12,19 04/2406/22/24 03/14/24 History Crepe [employer] brace #1 ea 08/18/22 06/22/2410/18 05:00 Rx pantoprazole 40 mg tablet,delayed 40 mg PO QAM 3 06/22/24 03/14/24 History release apixaban 5 mg tablet (Eliquis) 5 mg PO BID #180 tabs 1 03/25/22 06/22/24 03/14/24 Rx aspirin 81 mg tablet,delayed 81 mg PO DAILY 06/15/23 0 06/22/24 03/14/24 History release rosuvastatin 20 mg tablet 20 mg PO BEDTIME 06/15/2303/13/24 History ferrous sulfate 325 mg (65 mg 325 mg PO BID 12/23/23 0 06/22/24 03/14/24 History iron) tablet latanoprost 0.005 % eye drops 1 drp ophthalmic (eye) D AILY 12/23/23 06/22/24 03/14/24 History letrozole 2.5 mg tablet 2.5 mg PO DAILY 12/23/2309/0903/14/24 History ondansetron HCl 4 mg tablet 4 mg PO .q 4 hr PRN Nausea And 12/23/23 06/22/24 01/25/24 History Vomiting duloxetine 60 mg capsule,delayed 60 mg PO DAILY 06/22/24 03/14/24 History release nystatin 100,000 unit/gram topical 1 applic topical BI D 01/25/24 06/22/24 03/14/24 History powder (Klayesta) hydrocodone 7.5 mg-acetaminophen 1 tab PO Q8H 03/14/24 06/22/24 03/14/24 History 325 mg tablet clonidine HCl 0.3 mg tablet 0.3 mg PO BID 30 days #60 tabs 03/19/24 06/22/24 03/14/24 Rx insulin degludec 100 unit/mL (3 20 unit (0.2 mL) SUBCU T BID #15 mL 03/19/24 06/22/24 03/14/24 Rx mL) subcutaneous pen (Tresiba FlexTouch U-100 insulin) insulin lispro 100 unit/mL See Rx Instructions .Route 03/19/24 06/22/24 03/14/24 Rx subcutaneous pen (Humalog KwikPen .COMPLEX #15 mL (U-100) Insulin) amiodarone 200 mg tablet (Pacerone) 200 mg PO DAILY #9 0 tabs 03/23/24 06/22/24 Unknown Rx diltiazem HCl 120 mg 120 mg PO DAILY 03/26/2409/09 Unknown History capsule,extended release 24 hr isosorbide mononitrate 120 mg 120 mg PO DAILY 03/26/24 06/22/24 Unknown History tablet,extended release 24 hr isosorbide mononitrate 30 mg 30 mg PO DAILY #30 tabs 0 03/26/24 06/22/24 Unknown Rx tablet,extended release 24 hr linezolid 600 mg tablet 600 mg PO Q12H 03/26/2409/09 Unknown History losartan 25 mg tablet 25 mg PO DAILY 03/26/2409/09 Unknown History metoprolol tartrate 50 mg tablet 50 mg PO BID 03/26/24 06/22/24 Unknown History pentoxifylline 400 mg 400 mg PO TID #90 tabs 05/1606/22/24 Unknown Rx tablet,extended release Allergies Allergy/AdvReac Type Severity Reaction Status Date / Time dapagliflozin (From [facility]) Allergy Intermediate ADR-Itching Verified 06/22/24 10:30 empagliflozin (From Allergy Intermediate ADR-Itching Verified 06/22/24 10:30 Jardiance) anastrozole Allergy ALGY-Joint Verified 06/22/24 10:30 Pain PFSH Acute 2 PFSH: Medical History (Updated 07/13/24 @ 16:55 by William Pineda MD) Orthostatic hypotension Aortic stenosis Tachy-brigitte syndrome CKD (chronic kidney disease) Atherosclerosis of coronary artery of [place] heart without angina pectoris Peripheral arterial disease Lower extremity edema Leg pain Chronic venous insufficiency Chronic obstructive pulmonary disease Atrial fibrillation, chronic Diastolic heart failure Anemia Screen for colon cancer History of breast cancer Diabetes Hypertension Surgical History (Updated 07/13/24 @ 16:55 by William Pineda MD) Status post endovenous radiofrequency ablation of saphenous vein History of esophagogastroduodenoscopy (EGD) (~08/2019) dr[facility] zacarias [facility] [place]. History of colonoscopy with polypectomy (~08/2019) [facility]. History of carpal tunnel release of both wrists History of coronary angioplasty with insertion of stent History of coronary artery balloon dilation History of lumpectomy Family History Father CAD (coronary artery disease), Onset Age: 50 Cancer Diabetes Hyperlipidemia Hypertension Lung disease Denies family history of Clotting disorder Dementia Psychiatric illness Chronic kidney disease (CKD) Suicide Anesthesia complication Bleeding disorder Stroke Social History Smoking and tobacco/nicotine status: former use of tobacco/nicotine Quit status (tobacco/nicotine): has quit using Year quit tobacco: 2016 - 2PPD x 40 Years Alcohol intake: never Substance/Drug Use: never Lives independently: Yes Household members: spouse Marital status: Current occupational status: retired Do you think of yourself as: Straight/Heterosexual Current gender identity: Female Vitals/I&O/Wt Last Vital Signs Temp 97.8 F 07/13/24 15:53 Pulse 49 L 07/13/24 15:53 Resp 20 H 07/13/24 15:53 BP 101/57 07/13/24 15:53 Pulse Ox 96 07/13/24 15:53 O2 Del Method Nasal Cannula 07/13/24 15:53 O2 Flow Rate 3 07/13/24 15:53 07/13/24 07/13/24 07/13/24 06:59 14:59 22:59 Intake Total 300 / 300 Balance 300 / 300 Weight last 48 hrs Weight 106.594 kg Physical Exam 2 Narrative: General: No acute distress, AO x3, dehydrated, tired appearing HEENT: PERRLA, pupils bilaterally equal and reactive Chest: Normal vesicular breath sounds, coarse started present in right middle lobe, occasional rhonchi, equal good air entry bilaterally CVS: S1-S2 regular, bradycardia, soft ejection systolic murmur at aortic, no gallops, no rubs Abdomen: Soft, nontender, no organomegaly, bowel sounds present Neuro: No focal deficits, no facial deformity, AO x3, power 5/5 in all limbs Data 07/13/24 14:00 07/13/24 14:00 Micro: Microbiology 07/13/24 16:03 Blood Culture - Preliminary Blood SPECIMEN COLLECTED 07/13/24 16:00 Blood Culture - Preliminary Blood SPECIMEN COLLECTED A&P Assessment and plan (1) Severe sepsis: Hypotensive on admission recovering with fluid bolus. SIRS: Bradycardic febrile, Leukocytosis Source: Pneumonia End organ damage: DANYA, hypoxic respiratory failure Lactic acid elevated on admission Patient getting sepsis bolus. Monitor blood pressures. Keep mean artery pressure 65 mmHg. Check blood culture, trend procalcitonin, bacterial antigen, UA and urine culture, sputum culture De-escalate antibiotics as per culture results. (2) Acute hypoxic respiratory failure: Oxygen supplementation keeping saturation over 88%. Getting CT chest. D-dimer mildly elevated. Wean oxygen accordingly. Continue with overnight CPAP (3) Right middle lobe pulmonary infiltrate: Concern for aspiration pneumonia. Patient possibly had a choking episode 2 days prior to the admission. Speech evaluation. CT imaging as above to monitor for pneumonic patch. Patient has history of Pseudomonas and MRSA. For now start antibiotics with IV vancomycin and Zosyn. De-escalate as per culture sensitivities. (4) Acute kidney injury superimposed on CKD: Creatinine of 1.2-1.4 at baseline. Prior to February creatinine was below 1. Currently 1.6. Combination of severe infection along with dehydration, home use of losartan. IV fluid as above. Monitor electrolytes. Medical reconciliation done for nephrotoxic drugs. Monitor BMP daily for now. (5) Atrial fibrillation, chronic: With history of tachybradycardia syndrome. Currently bradycardic. Hold off on home dose of Cardizem and metoprolol for now. Continue with home dose of amiodarone. Continue with chronic anticoagulation with Eliquis 5 mg twice daily. (6) Bradycardia: (7) Hypoglycemia: Hypoglycemia protocol. Could be in setting of insulin dose in setting of DANYA. Hold off on Lantus. Sliding scale low-dose protocol. (8) Diabetes: Last A1c in February of 8.5. Will repeat. (9) Diastolic heart failure: Currently mildly dehydrated. Getting IV fluid as above. Last echocardiogram showed a normal EF with grade 2 diastolic dysfunction, mild aortic stenosis, mild MR. (10) Hypertension: Goal blood pressure less than 140/90 mmHg mean over 65. Severely hypotensive on presentation. Improving with IV fluid bolus. Takes multiple antihypertensive including clonidine 0.3 twice daily, metoprolol 50 mg twice daily, Imdur 120 mg daily, Cardizem 120 mg daily at home. For now we will hold off on antihypertensive and restart after blood pressures. (11) Atherosclerosis of coronary artery of [place] heart without angina pectoris: Does complain of chest tightness. Could be in setting of pneumonia. Cycle troponins. Depending on the troponin cycle we will plan for echocardiogram. Continue with home dose of aspirin, statin. Holding beta-walter as above. Plan Generalized weakness: Multifactorial. Could be in setting of sepsis. Cannot rule out in setting of hypotension, hypoglycemia and bradycardia. Telemonitoring. Continue to monitor. Physical therapy evaluation. Full code Regular diet Protonix for PUD prophylaxis Eliquis will be sufficient for DVT prophylaxis PDMP PDMP Reviewed: Not Reviewed Attestations 2 Medical Necessity Statement*: Admission for more than 2 midnights for management of generalized weakness in setting of severe sepsis, hypoxic respiratory failure in setting of pneumonia, hypotension, hypoglycemia, acute kidney injury on CKD Diagnoses Severe sepsis A41.9; R65.20 Acute hypoxic respiratory failure J96.01 Right middle lobe pulmonary infiltrate R91.8 Acute kidney injury superimposed on CKD N17.9; N18.9 Atrial fibrillation, chronic I48.20 Bradycardia R00.1 Hypoglycemia E16.2 Diabetes E11.9; Z79.4 Diabetes mellitus complication status: without complication Diabetes mellitus rn long term care insulin use: with fdc use Diabetes mellitus type: type 2 Chronic diastolic heart failure I50.32 Heart failure chronicity: chronic Primary hypertension I10 Hypertension type: primary hypertension Atherosclerosis of [place] coronary artery of [place] heart without angina pectoris I25.10 Coronary Disease-Associated Artery/Lesion type: [place] artery
[2024-07-13 16:26] LABS: Glucose Point of Care 65 mg/dL (70-110)
--- NOTE | 2024-07-13 16:42 | ECG_ITS ---
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1955 Requested By: Rohit Chappell Order Number: [id number] Jennie MD: BOB WORLEY Measurements Intervals [place] Rate: 51 P: 28 [place]: 210 QRS: -34 QRSD: 178 T: 58 QT: 531 QTc: 493 Interpretive Statements SINUS BRADYCARDIA WITH FIRST DEGREE AV BLOCK LEFT AXIS DEVIATION [QRS AXIS < -30] RIGHT BUNDLE BRANCH BLOCK [120+ ms QRS DURATION, UPRIGHT V1, 40+ ms S IN I/aVL/V4/V5/V6] SEPTAL MYOCARDIAL INFARCTION , OF INDETERMINATE AGE [40+ ms Q WAVE IN V1/V2] Compared to ECG 03/26/2024 09:55:39 First degree AV block now present Myocardial infarct finding now present Sinus rhythm no longer present Electronically Signed On 07-20-2024 22:55:42 CDT by BOB WORLEY [email or web address] [id number]
[2024-07-13] MEDS: dextrose 10% 250 ML 999 ML IV (16:46)
[2024-07-13 16:53] LABS: Troponin 5 2HR 28.13 ng/L (0-10)
[2024-07-13 16:56] LABS: Troponin 5 2HR Delta -1.87 ABS# (0-10)
--- NOTE | 2024-07-13 17:17 | PHA.VACGOAL ---
Vancomycin Goal - Goal Vancomycin Goal:: 15-20 mg/L Vancomycin Indication:: Pneumonia - Therapy Day of therpy:: Day []of [] . Actual body weight (kg): 235 lb - Data Labs: WBC 13.16 10^3/uL (3.29-11.43) H 07/13/24 14:00 RBC 4.88 10^6/uL (3.85-5.65) 07/13/24 14:00 Hgb 12.40 g/dL (11.27-16.99) 07/13/24 14:00 Hct 39.9 % (36-47) 07/13/24 14:00 MCV 81.8 fl (85-98) L 07/13/24 14:00 MCH 25.4 pg (27-33) L 07/13/24 14:00 MCHC 31.1 g/dL (30-55) 07/13/24 14:00 RDW 15.9 % (12.1-15.1) H 07/13/24 14:00 Sodium 135 mmol/L (136-145) L 07/13/24 14:00 Potassium 3.9 mmol/L (3.5-5.1) 07/13/24 14:00 Chloride 98 mmol/L (98-107) 07/13/24 14:00 Carbon Dioxide 21 mmol/L (22-29) L 07/13/24 14:00 Anion Gap 19.9 (5-19) H 07/13/24 14:00 BUN 35 mg/dL (8-23) H 07/13/24 14:00 Creatinine 1.6 mg/dL (0.5-0.9) H 07/13/24 14:00 GFR Calculation 32.1 mL/min (90-130) L 07/13/24 14:00 Treatment plan:: new consult Regimen:: 2000 MG FIRST DOSE THEN 1500 MG Q24H TO CONTINUE. PT HAS HISTORY OF NOT CLEARING VANCOMYCIN QUICKLY POPULATION
[2024-07-13] MEDS: iohexol 350 mg/mL 500 mL Btl (per mL) IV (17:26)
[2024-07-13 17:34] LABS: Reflex Lactate Order REFLEX LACTIC ORDERD
[2024-07-13 17:53] LABS: Procalcitonin 0.27 ng/mL (0-0.5)
[2024-07-13 18:26] LABS: Lactic Sepsis W/Reflex 1.6 mmol/L (0.5-2.2)
[2024-07-13 18:46] LABS: Iron 30 ug/dL (37-145); Percent Saturation 14.4 % (20-50); Total Iron Binding Capacity 207 mcg/dl; Unsaturated Iron Binding 177 ug/dL (112-347)
[2024-07-13 19:03] LABS: Vitamin B12 443 pg/mL (232-1245)
[2024-07-13] MEDS: sodium chloride 0.9% 1,000 ML 75 ML IV (19:18)
[2024-07-13] MEDS: vancomycin 2,000 MG/400 ML PIGGYBACK 200 MG IV (19:21)
[2024-07-13] MEDS: pantoprazole 40 mg SDV IVP (19:21)
[2024-07-13] MEDS: docusate sodium 100 mg Capsule PO (19:22)
[2024-07-13] MEDS: apixaban 5 mg Tablet PO (19:22)
[2024-07-13] MEDS: ferrous sulfate EC 325 mg Tablet PO (19:22)
[2024-07-13] MEDS: gabapentin 100 mg Capsule PO (19:47)
[2024-07-13 20:09] LABS: Glucose Point of Care 90 mg/dL (70-110)
[2024-07-13 20:35] LABS: Troponin 5 6HR 21.71 ng/L (0-10)
[2024-07-13 20:36] LABS: Lactic Acid level (Lactate) 0.8 mmol/L (0.5-2.2); Troponin 5 6HR Delta -8.29 ng/L (0-12)
[2024-07-13] MEDS: budesonide 0.5 mg/2 mL Neb INHALATION (21:20)
[2024-07-13] MEDS: ipratropium-albuterol 3 mL Neb INHALATION (21:20)
--- NOTE | 2024-07-13 21:30 | ECG_ITS ---
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
[2024-07-13 22:14] LABS: Bilirubin Urine Negative (Negative); Blood Urine Trace (Negative); Glucose Urine UA 3+ (Normal); Ketones Urine Negative (Negative); Leukocyte Esterase Urine Negative (Negative); Nitrate Urine Positive (Negative); Protein Urine 3+ (Negative); Specific Gravity, Urine 1.027 (1.005-1.030); Urine Appearance Clear (CLEAR)
[2024-07-13 22:19] LABS: Add Urine Microscopic? YES; Bacteria Urine None Seen /hpf; Hyaline Casts Urine 20.27 /lpf; RBC Urine 0-2 /hpf (0-2); Squamous Epithelial Cell Urine 0-5 /hpf (0-5); WBC Urine 0-5 /hpf (0-5)
[2024-07-13 22:37] LABS: UA Slide Review UA Slide Review Perf; Urine Color Orange (Yellow)
[2024-07-14] VITALS (44 sets, daily range): BP systolic 131–198; BP diastolic 55–107; PULSE 58–103; RESP 12–24; TEMP 36.6–37.7; O2SAT 90–98
[2024-07-14] MEDS: ipratropium-albuterol 3 mL Neb INHALATION ×4 (01:53→20:47)
[2024-07-14] MEDS: piperacillin-tazobactam 3.375 GM in sodium chloride 0.9% (plus) 50 ML IV ×3 (02:29→17:24)
[2024-07-14 03:23] LABS: Basophils # 0.1 10^3/uL (0.0-0.1); Basophils % 0.7 %; Eosinophils # 0.2 10^3/uL (0.0-0.8); Eosinophils % 1.3 %; Hematocrit 40.5 % (36-47); Lymphocytes # 3.2 10^3/uL (0.8-4.8); Lymphocytes % 23.6 %; Mean Corpuscular HGB Conc 29.1 g/dL (30-55); Mean Corpuscular Hemoglobin 24.9 pg (27-33); Mean Corpuscular Volume 85.6 fl (85-98); Monocytes # 0.7 10^3/uL (0.2-0.9); Monocytes % 5.1 %; Nucleated Red Blood Cells % 0 %; Platelet Count 336 10^3/cmm (157-399); Red Blood Count 4.73 10^6/uL (3.85-5.65); Red Cell Distribution Width 15.9 % (12.1-15.1); White Blood Count 13.37 10^3/uL (3.29-11.43)
[2024-07-14 03:46] LABS: Alanine Aminotransferase 13 U/L (0-33); Alkaline Phosphatase 99 U/L (35-105); Anion Gap 20.2 (5-19); Aspartate Amino Transferase 16 U/L (0-32); Blood Urea Nitrogen 32 mg/dL (8-23); Carbon Dioxide 18 mmol/L (22-29); Chloride 104 mmol/L (98-107); Creatinine Clr Calc Pharmacy 27.2644; Globulin 4.6 g/dL (1.3-4.6); Glomerular Filtration Rate 37.4 mL/min (90-130); Glucose 93 mg/dL (65-115); Magnesium 1.9 mg/dL (1.7-2.3); Osmolality Calculated 295 mOsm/kg (285-295); Phosphorus 3.2 mg/dL (2.5-4.5); Potassium 3.2 mmol/L (3.5-5.1); Sodium 139 mmol/L (136-145); Total Bilirubin 0.2 mg/dL (0.15-1.2); Total Protein 7.6 g/dL (6.6-8.7)
[2024-07-14 03:51] LABS: Procalcitonin 0.18 ng/mL (0-0.5)
[2024-07-14 04:06] LABS: Folate Level 6.3 ng/mL (4.8-37.3)
[2024-07-14] MEDS: dilTIAZem 60 mg Tablet PO ×3 (06:00→17:24)
[2024-07-14] MEDS: gabapentin 100 mg Capsule PO ×3 (06:00→18:35)
[2024-07-14] MEDS: budesonide 0.5 mg/2 mL Neb INHALATION ×2 (07:49→20:47)
[2024-07-14 07:59] LABS: Glucose Point of Care 149 mg/dL (70-110)
[2024-07-14] MEDS: insulin lispro 100 unit/1 mL SUBCUT ×4 (08:06→21:10)
[2024-07-14] MEDS: duloxetine 60 mg Capsule PO (08:06)
[2024-07-14] MEDS: docusate sodium 100 mg Capsule PO ×2 (08:06→17:23)
[2024-07-14] MEDS: aspirin 81 mg EC Tablet PO (08:06)
[2024-07-14] MEDS: apixaban 5 mg Tablet PO ×2 (08:06→17:24)
[2024-07-14] MEDS: ferrous sulfate EC 325 mg Tablet PO ×2 (08:06→17:23)
[2024-07-14] MEDS: amiodarone 200 mg Tablet PO (08:06)
[2024-07-14] MEDS: metoprolol tartrate 50 mg Tablet PO ×2 (09:21→21:09)
[2024-07-14] MEDS: potassium chloride ER 20 mEq Tablet 40 MEQ PO (09:35)
[2024-07-14 10:06] LABS: Estmated Average Glucose 306; Hemoglobin A1C 12.3 % (4.0-6.0)
[2024-07-14 11:14] LABS: Glucose Point of Care 268 mg/dL (70-110)
--- NOTE | 2024-07-14 13:34 | PM.PN ---
Subjective Subjective: No acute events overnight. Seen with daughter at bedside. Patient states she is feeling a lot better. Patient is more awake and alert. On 2 L walking supplementation. Blood pressure is getting elevated. Vitals/I&O/Wt Last Vital Signs Temp 97.8 F 07/14/24 04:00 Pulse 83 07/14/24 13:00 Resp 20 H 07/14/24 13:00 BP 160/66 07/14/24 13:00 Pulse Ox 92 07/14/24 12:30 O2 Del Method Nasal Cannula 07/14/24 07:49 O2 Flow Rate 2 07/14/24 07:49 07/13/24 07/14/24 07/14/24 22:59 06:59 14:59 Intake Total 2710 / 3010 50 / 3060 360 / 360 Output Total 1600 / 1600 1400 / 1400 Balance 2710 / 3010 -1550 / 1460 -1040 / -1040 Weight last 48 hrs Weight 101.5 kg Weight 44.906 kg Weight 106.594 kg Physical Exam Narrative: General: No acute distress, AO x3, HEENT: PERRLA, pupils bilaterally equal and reactive Chest: Normal vesicular breath sounds, coarse started present in right middle lobe, occasional rhonchi, equal good air entry bilaterally CVS: S1-S2 regular, bradycardia, soft ejection systolic murmur at aortic, no gallops, no rubs Abdomen: Soft, nontender, no organomegaly, bowel sounds present Neuro: No focal deficits, no facial deformity, AO x3, power 5/5 in all limbs Urinary Catheter Management: [place]: Cath Placed During This Visit: yes Reason for Continuing Indwelling Catheter: Accurate Measurement of Urinary Output in Critically Ill Patients Urinary Catheter Date of Insertion: 07/13/24 Urinary Catheter Time of Insertion: 22:02 Data 07/14/24 03:00 07/14/24 03:00 Micro: Microbiology 07/13/24 22:02 Bacterial Antigens - Final Urine Kidney 07/13/24 16:03 Blood Culture - Preliminary Blood SPECIMEN COLLECTED 07/13/24 16:00 Blood Culture - Preliminary Blood SPECIMEN COLLECTED A&P Assessment and plan (1) Severe sepsis: Hypotensive on admission recovering with fluid bolus. SIRS: Bradycardic febrile, Leukocytosis Source: Pneumonia End organ damage: DANYA, hypoxic respiratory failure Lactic acid elevated on admission Patient getting sepsis bolus. Monitor blood pressures. Keep mean artery pressure 65 mmHg. Follow-up blood culture, appreciate procalcitonin trend, UA negative for concern for UTI, sputum culture not collected De-escalate antibiotics as per culture results. (2) Acute hypoxic respiratory failure: Oxygen supplementation keeping saturation over 88%. Appreciate CT chest. Concerning for right middle lobe consolidation. High concern for aspiration pneumonia from event of presyncopal earlier this week. Continue with home CPAP. (3) Right middle lobe pulmonary infiltrate: Concern for aspiration pneumonia. Patient possibly had a choking episode 2 days prior to the admission. Speech evaluation. For now continue with IV Zosyn and vancomycin given history of Pseudomonas and MRSA in the past. Leukocytosis resolved. Continue antibiotics for over a 5-day course. If continues to improve can plan to transition to oral antibiotics in next 48 hours. (4) Acute kidney injury superimposed on CKD: Creatinine of 1.2-1.4 at baseline. Prior to February creatinine was below 1. Creatinine down to baseline. Continue with IV hydration at 75 cc/h for now. Watch for fluid overload. Combination of severe infection along with dehydration, home use of losartan. Monitor electrolytes. Medical reconciliation done for nephrotoxic drugs. Monitor BMP daily for now. (5) Atrial fibrillation, chronic: With history of tachybradycardia syndrome. Heart rate improving. Bradycardia resolved. Continue with home dose of amiodarone. Cardizem added overnight at 60 mg every 6 hourly. Add home dose of metoprolol 50 mg twice daily. Monitor for bradycardia Continue with chronic anticoagulation with Eliquis 5 mg twice daily. (6) Bradycardia: (7) Hypoglycemia: Hypoglycemia protocol. Could be in setting of insulin dose in setting of DANYA. Hold off on Lantus. Continue with sliding scale low-dose protocol. (8) Diabetes: Appreciate LE A1c of more than 12. Will confirm with family regarding insulin dose at home. Patient was hypoglycemic on admission. (9) Diastolic heart failure: Currently mildly dehydrated. Getting IV fluid as above. Last echocardiogram showed a normal EF with grade 2 diastolic dysfunction, mild aortic stenosis, mild MR. (10) Hypertension: History of uncontrolled hypertension in the past. Goal blood pressure less than 140/90 mmHg mean over 65. Severely hypotensive on presentation. Improving with IV fluid bolus. Takes multiple antihypertensive including clonidine 0.3 twice daily, metoprolol 50 mg twice daily, Imdur 120 mg daily, Cardizem 120 mg daily at home. For now we will hold off on antihypertensive and restart after blood pressures. (11) Atherosclerosis of coronary artery of [place] heart without angina pectoris: Does complain of chest tightness. Could be in setting of pneumonia. Appreciate negative cycle troponins. Continue with home dose of aspirin, statin, beta-walter. Plan Generalized weakness: Most likely in setting of sepsis, hypoglycemia. Cannot rule out in setting of bradycardia though she does have history of tachybradycardia syndrome in the past. Telemonitoring. Continue to monitor. Physical therapy evaluation. DC [place] catheter. Transfer [facility] floor. Continue with chronic home medications. Full code Regular diet Protonix for PUD prophylaxis Eliquis will be sufficient for DVT prophylaxis PDMP PDMP Reviewed: Not Reviewed Attestations Medical Necessity Statement*: Requested hospitalization for management of generalized weakness in setting of sepsis from right middle lobe pneumonia, hypoglycemia in a patient with history of uncontrolled hypertension and type 2 diabetes mellitus, afib with bradycardia with h/o tachy- bradycardia Diagnoses Severe sepsis A41.9; R65.20 Acute hypoxic respiratory failure J96.01 Right middle lobe pulmonary infiltrate R91.8 Acute kidney injury superimposed on CKD N17.9; N18.9 Atrial fibrillation, chronic I48.20 Bradycardia R00.1 Hypoglycemia E16.2 Diabetes E11.9; Z79.4 Diabetes mellitus complication status: without complication 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
[2024-07-14] MEDS: HYDROcodone-acetaminophen 7.5-325 mg Tablet 1 TAB PO (14:46)
[2024-07-14 17:03] LABS: Glucose Point of Care 456 mg/dL (70-110)
[2024-07-14] MEDS: vancomycin 1,500 MG/300 ML PIGGYBACK 200 MG IV (17:23)
[2024-07-14] MEDS: pantoprazole 40 mg SDV IVP (17:24)
[2024-07-14] MEDS: sodium chloride 0.9% 1,000 ML 75 ML IV (19:43)
[2024-07-14 21:06] LABS: Glucose Point of Care 396 mg/dL (70-110)
[2024-07-14] MEDS: insulin glargine 100 units/1 mL 20 UNIT SUBCUT (21:10)
[2024-07-15] VITALS (23 sets, daily range): BP systolic 157–174; BP diastolic 63–81; PULSE 56–86; RESP 14–18; TEMP 36.6–36.9; O2SAT 92–98
[2024-07-15] MEDS: dilTIAZem 60 mg Tablet PO ×5 (00:27→23:50)
[2024-07-15] MEDS: piperacillin-tazobactam 3.375 GM in sodium chloride 0.9% (plus) 50 ML IV ×3 (01:34→18:32)
[2024-07-15] MEDS: ipratropium-albuterol 3 mL Neb INHALATION ×4 (02:49→19:32)
[2024-07-15 05:23] LABS: Basophils # 0.1 10^3/uL (0.0-0.1); Basophils % 0.6 %; Eosinophils # 0.1 10^3/uL (0.0-0.8); Eosinophils % 1.1 %; Hematocrit 35.7 % (36-47); Lymphocytes # 1.3 10^3/uL (0.8-4.8); Lymphocytes % 14.2 %; Mean Corpuscular Hemoglobin 25.4 pg (27-33); Mean Corpuscular Volume 84.8 fl (85-98); Mean Platelet Volume 9.8 fL (7.4-10.4); Monocytes # 0.6 10^3/uL (0.2-0.9); Neutrophils # 7.22 10^3/uL (1.8-7.7); Neutrophils % 76.7 %; Nucleated Red Blood Cells % 0 %; Platelet Count 248 10^3/cmm (157-399); Red Blood Count 4.21 10^6/uL (3.85-5.65); White Blood Count 9.41 10^3/uL (3.29-11.43)
[2024-07-15 05:39] LABS: Alanine Aminotransferase 11 U/L (0-33); Albumin Level 2.6 g/dL (3.5-5.2); Alkaline Phosphatase 104 U/L (35-105); Anion Gap 16.6 (5-19); Aspartate Amino Transferase 12 U/L (0-32); Blood Urea Nitrogen 21 mg/dL (8-23); Calcium 8.8 mg/dL (8.5-10.5); Carbon Dioxide 19 mmol/L (22-29); Chloride 107 mmol/L (98-107); Creatinine Clr Calc Pharmacy 40.1362; Glomerular Filtration Rate 32.1 mL/min (90-130); Glucose 302 mg/dL (65-115); Magnesium 1.8 mg/dL (1.7-2.3); Osmolality Calculated 302 mOsm/kg (285-295); Phosphorus 2.7 mg/dL (2.5-4.5); Potassium 3.6 mmol/L (3.5-5.1); Sodium 139 mmol/L (136-145); Total Bilirubin 0.2 mg/dL (0.15-1.2); Total Protein 6.6 g/dL (6.6-8.7)
[2024-07-15] MEDS: gabapentin 100 mg Capsule PO ×3 (06:08→18:31)
[2024-07-15 07:55] LABS: Glucose Point of Care 300 mg/dL (70-110)
[2024-07-15] MEDS: duloxetine 60 mg Capsule PO (08:44)
[2024-07-15] MEDS: ferrous sulfate EC 325 mg Tablet PO ×2 (08:44→18:31)
[2024-07-15] MEDS: aspirin 81 mg EC Tablet PO (08:44)
[2024-07-15] MEDS: amiodarone 200 mg Tablet PO (08:45)
[2024-07-15] MEDS: apixaban 5 mg Tablet PO ×2 (08:45→18:31)
[2024-07-15] MEDS: metoprolol tartrate 50 mg Tablet PO ×2 (08:45→21:43)
[2024-07-15] MEDS: docusate sodium 100 mg Capsule PO ×2 (08:45→18:31)
[2024-07-15] MEDS: insulin lispro 100 unit/1 mL SUBCUT ×4 (08:46→21:42)
[2024-07-15] MEDS: budesonide 0.5 mg/2 mL Neb INHALATION ×2 (09:00→19:32)
[2024-07-15] MEDS: cloNIDine 0.2 mg/24 hr Patch 1 PATCH TRANSDERMA (09:11)
[2024-07-15] MEDS: insulin glargine 100 units/1 mL 20 UNIT SUBCUT ×2 (09:14→18:40)
[2024-07-15 12:00] LABS: Glucose Point of Care 411 mg/dL (70-110)
--- NOTE | 2024-07-15 13:52 | PM.PN ---
Subjective Subjective: No acute vents overnight. Seen with daughter at bedside. Patient states she is feeling a lot better. Currently on room air. Denies any nausea, vomiting, headache. Blood sugars and blood pressures elevated. Vitals/I&O/Wt Last Vital Signs Temp 98.1 F 07/15/24 13:00 Pulse 74 07/15/24 09:11 Resp 18 07/15/24 13:00 BP 169/70 07/15/24 13:00 Pulse Ox 98 07/15/24 13:00 O2 Del Method Room Air 07/15/24 13:00 O2 Flow Rate 1 07/15/24 05:00 FiO2 21 07/15/24 02:45 07/14/24 07/15/24 07/15/24 22:59 06:59 14:59 Intake Total 2050 / 2460 300 / 2760 1400 / 1400 Output Total 1400 / 2800 1400 / 1400 Balance 2050 / 1060 -1100 / -40 0 / 0 Weight last 48 hrs Weight 99.926 kg Weight 101.5 kg Weight 44.906 kg Weight 106.594 kg Physical Exam Narrative: General: No acute distress, AO x3, HEENT: PERRLA, pupils bilaterally equal and reactive Chest: Normal vesicular breath sounds, coarse started present in right middle lobe, occasional rhonchi, equal good air entry bilaterally CVS: S1-S2 regular, bradycardia, soft ejection systolic murmur at aortic, no gallops, no rubs Abdomen: Soft, nontender, no organomegaly, bowel sounds present Neuro: No focal deficits, no facial deformity, AO x3, power 5/5 in all limbs Urinary Catheter Management: [place]: Cath Placed During This Visit: yes, but has since been removed by the nurse Reason for Continuing Indwelling Catheter: Accurate Measurement of Urinary Output in Critically Ill Patients Urinary Catheter Date of Insertion: 07/13/24 Urinary Catheter Time of Insertion: 22:02 Date Urinary Catheter Removed: 07/14/24 Data 07/15/24 04:44 07/15/24 04:44 Micro: Microbiology 07/13/24 16:03 Blood Culture - Preliminary Blood NEGATIVE TO DATE 07/13/24 16:00 Blood Culture - Preliminary Blood NEGATIVE TO DATE 07/13/24 22:02 Bacterial Antigens - Final Urine Kidney A&P Assessment and plan (1) Severe sepsis: Hypotensive on admission recovering with fluid bolus. SIRS: Bradycardic febrile, Leukocytosis Source: Pneumonia End organ damage: DANYA, hypoxic respiratory failure Lactic acid elevated on admission Patient getting sepsis bolus. Monitor blood pressures. Keep mean artery pressure 65 mmHg. Follow-up blood culture, appreciate procalcitonin trend, UA negative for concern for UTI, sputum culture not collected De-escalate antibiotics as per culture results. (2) Acute hypoxic respiratory failure: Oxygen supplementation keeping saturation over 88%. Appreciate CT chest. Concerning for right middle lobe consolidation. High concern for aspiration pneumonia from event of presyncopal earlier this week. Continue with home CPAP. (3) Right middle lobe pulmonary infiltrate: Concern for aspiration pneumonia. Patient possibly had a choking episode 2 days prior to the admission. Speech evaluation. For now continue with IV Zosyn and vancomycin given history of Pseudomonas and MRSA in the past. Leukocytosis resolved. Continue antibiotics for over a 5-day course. If continues to improve can plan to transition to oral antibiotics in next 48 hours. (4) Acute kidney injury superimposed on CKD: Creatinine of 1.2-1.4 at baseline. Prior to February creatinine was below 1. Creatinine down to baseline. Continue with IV hydration at 75 cc/h for now. Watch for fluid overload. Combination of severe infection along with dehydration, home use of losartan. Monitor electrolytes. Medical reconciliation done for nephrotoxic drugs. Monitor BMP daily for now. (5) Atrial fibrillation, chronic: With history of tachybradycardia syndrome. Heart rate improving. Bradycardia resolved. Continue with home dose of amiodarone. Cardizem added overnight at 60 mg every 6 hourly. Add home dose of metoprolol 50 mg twice daily. Monitor for bradycardia Continue with chronic anticoagulation with Eliquis 5 mg twice daily. (6) Bradycardia: (7) Hypoglycemia: Hypoglycemia protocol. Could be in setting of insulin dose in setting of DANYA. Hold off on Lantus. Continue with sliding scale low-dose protocol. (8) Diabetes: Appreciate LE A1c of more than 12. Will confirm with family regarding insulin dose at home. Patient was hypoglycemic on admission. (9) Diastolic heart failure: Currently mildly dehydrated. Getting IV fluid as above. Last echocardiogram showed a normal EF with grade 2 diastolic dysfunction, mild aortic stenosis, mild MR. (10) Hypertension: History of uncontrolled hypertension in the past. Goal blood pressure less than 140/90 mmHg mean over 65. Severely hypotensive on presentation. Improving with IV fluid bolus. Takes multiple antihypertensive including clonidine 0.3 twice daily, metoprolol 50 mg twice daily, Imdur 120 mg daily, Cardizem 120 mg daily at home. For now we will hold off on antihypertensive and restart after blood pressures. (11) Atherosclerosis of coronary artery of [place] heart without angina pectoris: Does complain of chest tightness. Could be in setting of pneumonia. Appreciate negative cycle troponins. Continue with home dose of aspirin, statin, beta-walter. Plan Generalized weakness: Most likely in setting of sepsis, hypoglycemia. Cannot rule out in setting of bradycardia though she does have history of tachybradycardia syndrome in the past. Telemonitoring. Continue to monitor. Physical therapy evaluation. DC [place] catheter. Continue with chronic home medications. Full code Regular diet Protonix for PUD prophylaxis Eliquis will be sufficient for DVT prophylaxis Plan for the day: Continue to follow-up blood cultures. Continue with empiric Zosyn and vancomycin. Follow-up vancomycin trough. Oxygen supplementation given saturation over 90%. Continue nebulization treatment. Blood pressure is elevated. Goal blood pressure less than 140/90 mmHg. Continue with current dose of Coreg, metoprolol. Patient takes clonidine 0.3 mg twice daily at home. Start on clonidine patch. If needed will add hydralazine. Continue hydralazine 10 mg every 6 hours as needed for systolic more than 160 mmHg. Blood sugars elevated. Was hypoglycemic on admission. A1c of more than 12. It seems patient takes overall up to 200 units of insulin at home between long and short acting. Increase Lantus to 20 units twice daily for now. Continue with insulin sliding scale at high dose protocol. Will plan for further recommendations on insulin requirement as an outpatient depending on requirement in next 24 hours. Patient would benefit with Dexcom and insulin pump as an outpatient. Encourage patient to discuss the same with family physician. Appreciate PT evaluation. They home health. Discharge plan: Plan to discharge in next 24 hours to back home if remains hemodynamically stable and afebrile with better controlled blood pressures and blood sugars. PDMP PDMP Reviewed: Not Reviewed Attestations Medical Necessity Statement*: Requires further hospitalization for management of generalized weakness in setting of labile blood sugars with hypoglycemia on admission, uncontrolled type 2 diabetes mellitus, uncontrolled hypertension with concern for right middle lobe aspiration pneumonia Diagnoses Severe sepsis A41.9; R65.20 Acute hypoxic respiratory failure J96.01 Right middle lobe pulmonary infiltrate R91.8 Acute kidney injury superimposed on CKD N17.9; N18.9 Atrial fibrillation, chronic I48.20 Bradycardia R00.1 Hypoglycemia E16.2 Diabetes E11.9; Z79.4 Diabetes mellitus complication status: without complication Diabetes mellitus termination clerk insulin use: with skilled nursing use Diabetes mellitus type: type 2 Chronic diastolic heart failure I50.32 Heart failure chronicity: chronic Primary hypertension I10 Hypertension type: primary hypertension Atherosclerosis of [place] coronary artery of [place] heart without angina pectoris I25.10 Coronary Disease-Associated Artery/Lesion type: [place] artery
[2024-07-15 14:25] LABS: Glucose Point of Care 360 mg/dL (70-110)
--- NOTE | 2024-07-15 15:54 | PC.SOCIAL ---
IMM updated IMM dated and initialed copy given to patient and Copy placed in chart.
[2024-07-15] MEDS: pantoprazole 40 mg SDV IVP (16:41)
[2024-07-15] MEDS: hyDRALAzine 20 mg/mL INJ 1 mL 10 MG IVP (16:50)
[2024-07-15 16:53] LABS: Glucose Point of Care 330 mg/dL (70-110)
[2024-07-15 17:05] LABS: Vancomycin Trough 16.4 ug/mL (10-15)
--- NOTE | 2024-07-15 17:42 | PC.NURSE ---
Shift SUmmary: Up to a chair for most of the day. Started on clonidine patch. Increased lantus from once a day to BID. Likely discharge tommorow.
[2024-07-15] MEDS: vancomycin 1,500 MG/300 ML PIGGYBACK 200 MG IV (18:36)
[2024-07-15 21:16] LABS: Glucose Point of Care 353 mg/dL (70-110)
[2024-07-15] MEDS: HYDROcodone-acetaminophen 7.5-325 mg Tablet 1 TAB PO (21:43)
[2024-07-16] VITALS (8 sets, daily range): BP systolic 136–179; BP diastolic 65–81; PULSE 57–89; RESP 16–21; TEMP 36.6–37.2; O2SAT 90–95
[2024-07-16] MEDS: piperacillin-tazobactam 3.375 GM in sodium chloride 0.9% (plus) 50 ML IV ×2 (01:48→10:41)
[2024-07-16] MEDS: hyDRALAzine 20 mg/mL INJ 1 mL 10 MG IVP (05:25)
[2024-07-16] MEDS: HYDROcodone-acetaminophen 7.5-325 mg Tablet 1 TAB PO (05:26)
[2024-07-16] MEDS: gabapentin 100 mg Capsule PO ×2 (05:26→12:04)
[2024-07-16] MEDS: dilTIAZem 60 mg Tablet PO ×2 (05:27→12:04)
[2024-07-16 06:08] LABS: Basophils # 0.1 10^3/uL (0.0-0.1); Basophils % 0.5 %; Eosinophils # 0.2 10^3/uL (0.0-0.8); Hematocrit 35.7 % (36-47); Lymphocytes # 1.6 10^3/uL (0.8-4.8); Mean Corpuscular HGB Conc 30.3 g/dL (30-55); Mean Corpuscular Hemoglobin 24.9 pg (27-33); Mean Corpuscular Volume 82.3 fl (85-98); Mean Platelet Volume 9.8 fL (7.4-10.4); Monocytes # 0.7 10^3/uL (0.2-0.9); Monocytes % 7.2 %; Neutrophils # 6.51 10^3/uL (1.8-7.7); Neutrophils % 71.5 %; Nucleated Red Blood Cells % 0 %; Platelet Count 305 10^3/cmm (157-399); Red Blood Count 4.34 10^6/uL (3.85-5.65); Red Cell Distribution Width 16.3 % (12.1-15.1); White Blood Count 9.11 10^3/uL (3.29-11.43)
[2024-07-16 06:35] LABS: Alanine Aminotransferase 10 U/L (0-33); Albumin Level 2.7 g/dL (3.5-5.2); Alkaline Phosphatase 77 U/L (35-105); Anion Gap 16.8 (5-19); Aspartate Amino Transferase 11 U/L (0-32); Blood Urea Nitrogen 18 mg/dL (8-23); Calcium 8.8 mg/dL (8.5-10.5); Carbon Dioxide 21 mmol/L (22-29); Chloride 105 mmol/L (98-107); Creatinine Clr Calc Pharmacy 55.0701; Globulin 3.6 g/dL (1.3-4.6); Glomerular Filtration Rate 44.7 mL/min (90-130); Glucose 236 mg/dL (65-115); Magnesium 1.9 mg/dL (1.7-2.3); Osmolality Calculated 298 mOsm/kg (285-295); Phosphorus 2.8 mg/dL (2.5-4.5); Potassium 3.8 mmol/L (3.5-5.1); Sodium 139 mmol/L (136-145); Total Bilirubin 0.2 mg/dL (0.15-1.2); Total Protein 6.3 g/dL (6.6-8.7)
[2024-07-16 06:44] LABS: Glucose Point of Care 256 mg/dL (70-110)
[2024-07-16] MEDS: budesonide 0.5 mg/2 mL Neb INHALATION (08:29)
[2024-07-16] MEDS: ipratropium-albuterol 3 mL Neb INHALATION (08:30)
[2024-07-16] MEDS: amiodarone 200 mg Tablet PO (09:09)
[2024-07-16] MEDS: docusate sodium 100 mg Capsule PO (09:09)
[2024-07-16] MEDS: aspirin 81 mg EC Tablet PO (09:09)
[2024-07-16] MEDS: ferrous sulfate EC 325 mg Tablet PO (09:09)
[2024-07-16] MEDS: duloxetine 60 mg Capsule PO (09:09)
[2024-07-16] MEDS: metoprolol tartrate 50 mg Tablet PO (09:09)
[2024-07-16] MEDS: apixaban 5 mg Tablet PO (09:09)
[2024-07-16] MEDS: insulin lispro 100 unit/1 mL SUBCUT ×2 (09:09→12:04)
[2024-07-16] MEDS: insulin glargine 100 units/1 mL 20 UNIT SUBCUT (10:41)
[2024-07-16 11:14] LABS: Glucose Point of Care 349 mg/dL (70-110)
--- NOTE | 2024-07-16 12:06 | PM.DCS ---
Discharge Providers Date of Admission: 07/13/24 17:43 Date of Discharge: July 16, 2024 Attending Provider at Admission: William Pineda MD Attending Provider at Discharge: William Pineda MD Primary Care Provider: Jeanine Solares MD Diagnoses at Discharge Discharge Diagnosis (1) Severe sepsis: Status: Acute (2) Acute hypoxic respiratory failure: Status: Acute (3) Right middle lobe pulmonary infiltrate: Status: Acute (4) Acute kidney injury superimposed on CKD: Status: Acute (5) Atrial fibrillation, chronic: Status: Acute (6) Bradycardia: Status: Acute (7) Hypoglycemia: Status: Acute (8) Diabetes: Status: Acute Qualifiers: Diabetes mellitus complication status: without complication 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 mellitus rodent exterminator insulin use: with skilled nursing use Diabetes mellitus type: type 2 Qualified Code(s): E11.9 - Type 2 diabetes mellitus without complications; Z79.4 - intermodal customer service (current) use of insulin (9) Diastolic heart failure: Status: Acute Qualifiers: Heart failure chronicity: chronic Qualified Code(s): I50.32 - Chronic diastolic (congestive) heart failure (10) Hypertension: Status: Acute Qualifiers: Hypertension type: primary hypertension Qualified Code(s): I10 - Essential (primary) hypertension (11) Atherosclerosis of coronary artery of [place] heart without angina pectoris: Status: Acute Qualifiers: Coronary Disease-Associated Artery/Lesion type: [place] artery Qualified Code(s): I25.10 - Atherosclerotic heart disease of [place] coronary artery without angina pectoris Reason for Visit Reason for Visit: chest pressure Hospital Course Hospital Course Seema Del Rosario is a 68 year old female with past medical history of hypertension, COPD, CKD, left breast CA with mets to bone, type 2 diabetes mellitus, diastolic dysfunction, mild aortic valve stenosis, chronic atrial fibrillation with history of tachybradycardia syndrome, hypertension, post cardioversion presents to the ER today because of chest tightness with started while having lunch today along with feeling short of breath and weak and tired. As per patient daughter with bedside she had a similar event on Thursday when she became very lethargic and tired all of a sudden which at that time they attributed to hypoglycemia though did not check the blood sugars or blood pressures and gradually during the day she became better. Today she had the same episode along with chest tightness so they brought to the ER. In the ER she was found to be hypoxic requiring oxygen supplementation, hypotensive with systolic of 80s requiring IV fluid bolus. Examination patient lying comfortably in bed, awake and alert, tired appearing with a blood pressure of 130 over 60 mmHg with heart rate running in mid 50s on 2 L of oxygen supplementation. Patient is still denies any nausea, vomiting, headache, choking episode, diarrhea but does complain of dizziness on and off, chest tightness prior to coming to the ER, chronic cough without any changes or increase recently. Patient was admitted to the hospital for further evaluation and management of severe sepsis with hypoxic respiratory failure and altered mental status with concerns for hypoglycemia on admission. There was concern for aspiration pneumonia with a right middle lobe pneumonia. PE was ruled out. She was started on broad-spectrum IV antibiotics. Gradually her blood pressures improved and she was gradually started on antihypertensives Which were uptitrated. Her blood sugars also improved and she required high doses of insulin. A1c was checked on falls found to be more than 12. Patient worked well with physical therapy and is at her baseline oxygen supplementation for last 48 hours. She has been discharged in hemodynamically stable condition with adjusted antihypertensive. She is advised to follow-up with her PCP and discuss about possible Dexcom and insulin pump. She is advised to maintain a log of blood pressure and blood sugars. Physical Exam Narrative: General: No acute distress, AO x3, HEENT: PERRLA, pupils bilaterally equal and reactive Chest: Normal vesicular breath sounds, coarse started present in right middle lobe, occasional rhonchi, equal good air entry bilaterally CVS: S1-S2 regular, bradycardia, soft ejection systolic murmur at aortic, no gallops, no rubs Abdomen: Soft, nontender, no organomegaly, bowel sounds present Neuro: No focal deficits, no facial deformity, AO x3, power 5/5 in all limbs Urinary Catheter Management: [place]: Cath Placed During This Visit: yes, but has since been removed by the nurse Reason for Continuing Indwelling Catheter: Accurate Measurement of Urinary Output in Critically Ill Patients Urinary Catheter Date of Insertion: 07/13/24 Urinary Catheter Time of Insertion: 22:02 Date Urinary Catheter Removed: 07/14/24 Discharge Data Studies Completed and Pending Completed Studies During Hospitalization Category Date Time Status CT angio chest PE protcl [id number] Stat Cat Scan 07/13/24 15:47 Completed XR chest 1V portable [id number] Stat Exams 07/13/24 14:42 Completed Pending at discharge Category Date Time Status Blood Culture Stat Lab 07/13/24 16:03 Results Sputum Culture and Gram Stain Stat Lab 07/13/24 17:06 Uncollected Radiology Impressions Chest X-Ray 07/13/24 14:42 Impression: 1. Patchy right upper lobe opacity which could represent atelectasis and/or pneumonia and recommend repeat chest x-ray in 2 to 3 days. 2. Atherosclerosis. Chest CTA 07/13/24 15:47 IMPRESSION: 1. No evidence of pulmonary embolism. 2. Scattered atherosclerotic plaquing of the thoracic aorta without aneurysm or dissection. 3. Extensive consolidation with air bronchograms in the anterior segment of the right upper lobe consistent with pneumonia. 4. Extensive atherosclerotic coronary artery calcifications. 5. Right adrenal gland mass measuring up to 5.8 cm which is slightly increased in size since 2019 suggestive of slow growing benign lesion. This can be further characterized with dedicated adrenal gland MRI on a nonemergent basis if clinically warranted. 6. Lesion with macroscopic fat in the left adrenal gland measuring up to 3 cm, most consistent with myelolipoma. Microbiology 07/13/24 16:03 Blood Blood Culture - Preliminary NEGATIVE TO DATE 07/13/24 16:00 Blood Blood Culture - Preliminary NEGATIVE TO DATE 07/13/24 22:02 Urine Kidney Bacterial Antigens - Final Laboratory Results WBC 9.11 10^3/uL (3.29-11.43) 07/16/24 05:37 RBC 4.34 10^6/uL (3.85-5.65) 07/16/24 05:37 Hgb 10.80 g/dL (11.27-16.99) L 07/16/24 05:37 Hct 35.7 % (36-47) L 07/16/24 05:37 MCV 82.3 fl (85-98) L 07/16/24 05:37 MCH 24.9 pg (27-33) L 07/16/24 05:37 MCHC 30.3 g/dL (30-55) 07/16/24 05:37 RDW 16.3 % (12.1-15.1) H 07/16/24 05:37 Plt Count 305 10^3/cmm (157-399) 07/16/24 05:37 MPV 9.8 fL (7.4-10.4) 07/16/24 05:37 Neut % (Auto) 71.5 % 07/16/24 05:37 Lymph % (Auto) 17.0 % 07/16/24 05:37 [place] % (Auto) 7.2 % 07/16/24 05:37 Eos % (Auto) 2.0 % 07/16/24 05:37 Baso % (Auto) 0.5 % 07/16/24 05:37 Neut # (Auto) 6.51 10^3/uL (1.8-7.7) 07/16/24 05:37 Lymph # (Auto) 1.6 10^3/uL (0.8-4.8) 07/16/24 05:37 [place] # (Auto) 0.7 10^3/uL (0.2-0.9) 07/16/24 05:37 Eos # (Auto) 0.2 10^3/uL (0.0-0.8) 07/16/24 05:37 Baso # (Auto) 0.1 10^3/uL (0.0-0.1) 07/16/24 05:37 Nucleated RBC % (auto) 0 % 07/16/24 05:37 Nucleated RBCs # 0.0 /100WBC 07/16/24 05:37 D-Dimer 1.30 ug/mLFEU (0-0.59) H 07/13/24 14:00 Specimen Type Arterial 07/13/24 15:50 Sample Site Brachial, left 07/13/24 15:50 ABG pH 7.35 (7.35-7.45) 07/13/24 15:50 ABG pCO2 38.4 mmHg (35-45) 07/13/24 15:50 ABG pO2 82.7 mmHg (80.0-100.0) 07/13/24 15:50 ABG PO2/FiO2 Ratio 258 07/13/24 15:50 ABG HCO3 21.3 mmol/L (22-26) L 07/13/24 15:50 ABG O2 Saturation 94.5 07/13/24 15:50 ABG Base Excess -3.9 mmol/L (-2.0-2.0) L 07/13/24 15:50 [place] Test N/a 07/13/24 15:50 A-a O2 Gradient 12.7 mmHg (5-10) H 07/13/24 15:50 Hematocrit 35.9 % (37-47) L 07/13/24 15:50 Hgb O2 Saturation 91.8 % (95-100) L 07/13/24 15:50 Carboxyhemoglobin 2.5 %THgb (0.4-20.1) 07/13/24 15:50 Methemoglobin 0.3 % (0.4-1.5) L 07/13/24 15:50 Total Hemoglobin 11.7 g/dL (12-16) L 07/13/24 15:50 Sodium 137.0 mmol/L (131-143) 07/13/24 15:50 Potassium 3.6 mmol/L (3.5-5.0) 07/13/24 15:50 Glucose 64.0 mg/dL (70-115) L 07/13/24 15:50 Ionized Calcium 1.2 mmol/L (1.1-1.4) 07/13/24 15:50 O2 Delivery Device Nc 07/13/24 15:50 O2 Liters/Min 3.0 % 07/13/24 15:50 FiO2 32.0 % 07/13/24 15:50 [employer] ID Amh 07/13/24 15:50 Sodium 139 mmol/L (136-145) 07/16/24 05:37 Potassium 3.8 mmol/L (3.5-5.1) 07/16/24 05:37 Chloride 105 mmol/L (98-107) 07/16/24 05:37 Carbon Dioxide 21 mmol/L (22-29) L 07/16/24 05:37 Anion Gap 16.8 (5-19) 07/16/24 05:37 BUN 18 mg/dL (8-23) 07/16/24 05:37 Creatinine 1.2 mg/dL (0.5-0.9) H 07/16/24 05:37 GFR Calculation 44.7 mL/min (90-130) L 07/16/24 05:37 Glucose 236 mg/dL (65-115) H 07/16/24 05:37 POC Glucose 349 mg/dL (70-110) H 07/16/24 11:01 Estimat Average Glucose 306 07/14/24 03:00 Hemoglobin A1c 12.3 % (4.0-6.0) H 07/14/24 03:00 Calculated Osmolality 298 mOsm/kg (285-295) H 07/16/24 05:37 Lactic Acid 1.6 mmol/L (0.5-2.2) 07/13/24 17:18 Lactic Acid (Sepsis) 0.8 mmol/L (0.5-2.2) 07/13/24 20:00 Calcium 8.8 mg/dL (8.5-10.5) 07/16/24 05:37 Phosphorus 2.8 mg/dL (2.5-4.5) 07/16/24 05:37 Magnesium 1.9 mg/dL (1.7-2.3) 07/16/24 05:37 Iron 30 ug/dL (37-145) L 07/13/24 16:00 TIBC 207 mcg/dl 07/13/24 16:00 % Saturation 14.4 % (20-50) L 07/13/24 16:00 Unsat Iron Binding 177 ug/dL (112-347) 07/13/24 16:00 Total Bilirubin 0.2 mg/dL (0.15-1.2) 07/16/24 05:37 AST 11 U/L (0-32) 07/16/24 05:37 ALT 10 U/L (0-33) 07/16/24 05:37 Alkaline Phosphatase 77 U/L (35-105) 07/16/24 05:37 Troponin T Baseline 30 ng/L (0-10) H 07/13/24 14:00 Troponin T 120 Minute 28.13 ng/L (0-10) H 07/13/24 16:00 Delta Troponin T -1.87 ABS# (0-10) L 07/13/24 16:00 Troponin T Hi Sens 6Hr 21.71 ng/L (0-10) H 07/13/24 20:00 Troponin T Hi Sens 6Hr Delta -8.29 ng/L (0-12) L 07/13/24 20:00 NT-Pro-B Natriuret Pep 5916 pg/mL (0-125) H 07/13/24 14:00 Total Protein 6.3 g/dL (6.6-8.7) L 07/16/24 05:37 Albumin 2.7 g/dL (3.5-5.2) L 07/16/24 05:37 Globulin 3.6 g/dL (1.3-4.6) 07/16/24 05:37 Vitamin B12 443 pg/mL (232-1245) 07/13/24 16:00 Folate 6.3 ng/mL (4.8-37.3) 07/14/24 03:00 Procalcitonin 0.18 ng/mL (0-0.5) 07/14/24 03:00 Urine Color [place] (Yellow) A 07/13/24 22:02 Urine Appearance Clear (CLEAR) 07/13/24 22:02 Urine pH 5.0 (5-7) 07/13/24 22:02 Ur Specific [place] 1.027 (1.005-1.030) 07/13/24 22:02 Urine Protein 3+ (Negative) A 07/13/24 22:02 Urine Glucose (UA) 3+ (Normal) H 07/13/24 22:02 Urine Ketones Negative (Negative) 07/13/24 22:02 Urine Blood Trace (Negative) A 07/13/24 22:02 Urine Nitrate Positive (Negative) A 07/13/24 22:02 Urine Bilirubin Negative (Negative) 07/13/24 22:02 Urine Urobilinogen 1.0 mg/dL (Negative) 07/13/24 22:02 Ur Leukocyte Esterase Negative (Negative) 07/13/24 22:02 Urine RBC 0-2 /hpf (0-2) 07/13/24 22:02 Urine WBC 0-5 /hpf (0-5) 07/13/24 22:02 Ur Squamous Epith Cells 0-5 /hpf (0-5) 07/13/24 22:02 Amorphous Sediment Not Reportable 07/13/24 22:02 Urine Bacteria None seen /hpf (NONE) 07/13/24 22:02 Hyaline Casts 20.27 /lpf 07/13/24 22:02 Vancomycin Trough 16.4 ug/mL (10-15) H 07/15/24 16:37 Vitals Last Vital Signs Temp 98.0 F 07/16/24 11:34 Pulse 59 L 07/16/24 11:34 Resp 16 07/16/24 11:34 BP 164/72 07/16/24 11:34 Pulse Ox 95 07/16/24 11:34 O2 Del Method Room Air 07/16/24 11:34 O2 Flow Rate 1 07/15/24 05:00 FiO2 21 07/15/24 02:45 Discharge Plan Discharge Patient Disposition: Home Condition: Stable Prescriptions: New levofloxacin 750 mg tablet 750 mg PO Q24H 3 Days Qty: 3 0RF linezolid 600 mg tablet 600 mg PO BID 3 Days Qty: 6 0RF Continued Eliquis 5 mg tablet 5 mg PO BID Qty: 180 3RF latanoprost 0.005 % drops 1 drp ophthalmic (eye) DAILY ondansetron HCl 4 mg tablet 4 mg PO .q 4 hr PRN (Reason: Nausea And Vomiting) letrozole 2.5 mg tablet 2.5 mg PO DAILY amiodarone [Pacerone] 200 mg tablet 200 mg PO DAILY Qty: 90 3RF (DME) Signals Collector/Analyst brace See Rx Instructions .Route .MEDSUPPLY Qty: 1 0RF Rx Instructions: As directed pentoxifylline 400 mg tablet extended release 400 mg PO TID Qty: 90 6RF Rx Instructions: must administer with a meal/food allopurinol 100 mg tablet 100 mg PO DAILY@0700 gabapentin 300 mg capsule 300 mg PO TID@07,12,19 pantoprazole 40 mg tablet,delayed release (DR/EC) 40 mg PO QAM nystatin [Klayesta] 100,000 unit/gram powder 1 applic TOPICAL BID PRN (Reason: Skin Irritation) duloxetine 60 mg capsule,delayed release(DR/EC) 60 mg PO DAILY metoprolol tartrate 50 mg tablet 50 mg PO BID diltiazem HCl 120 mg capsule,extended release 24hr 120 mg PO DAILY aspirin 81 mg tablet,delayed release (DR/EC) 81 mg PO DAILY rosuvastatin 20 mg tablet 20 mg PO BEDTIME hydrocodone-acetaminophen 7.5-325 mg tablet 1 tab PO Q8H PRN (Reason: Pain) clonidine HCl 0.3 mg tablet 0.3 mg PO BID 30 Days Qty: 60 0RF insulin lispro [Humalog KwikPen Insulin] 100 unit/mL insulin pen See Rx Instructions .ROUTE .COMPLEX Qty: 15 0RF Rx Instructions: Inject 30 units subq 3 times daily, after meals, based on sliding scale provided. clonazepam 0.5 mg tablet 0.5 mg PO DAILY PRN (Reason: severe anxiety) ergocalciferol (vitamin D2) 1,250 mcg (50,000 unit) capsule 50,000 unit PO Q7D potassium chloride 20 mEq tablet extended release 20 meq PO BID desvenlafaxine succinate 25 mg tablet extended release 24 hr 25 mg PO DAILY insulin degludec [Tresiba FlexTouch U-100] 100 unit/mL (3 mL) insulin pen 42 unit SUBCUT BID Changed furosemide 40 mg tablet 40 mg PO DAILY PRN (Reason: Weight gain of 3 lbs) Qty: 10 0RF losartan 25 mg tablet 75 mg PO DAILY 30 Days Qty: 0 0RF Discontinued isosorbide mononitrate 120 mg tablet extended release 24 hr 120 mg PO DAILY insulin degludec [Tresiba FlexTouch U-100] 100 unit/mL (3 mL) insulin pen 20 unit SUBCUT BID Qty: 15 0RF amlodipine 10 mg tablet 10 mg PO DAILY Discharge Orders: Discharge Order (Routine); Ordered 07/16/24 Ordered By: William Pineda Referrals: Jeanine Solares MD [Primary Care Provider, Internal Medicine] - 4-7 days Referral Note: Please rech out to your doctor for a follow up within 4-7 days Discharge Diet: Cardiac Discharge Activity: Resume usual activity and Increase activity as tolerated Patient Instructions: Levofloxacin (By mouth), Linezolid (By mouth), Hypoglycemia, Community Acquired Pneumonia (DC), Opioid Safety Activity Restrictions/Additional Instructions: Please check your blood pressures daily at home and maintain blood pressure diary. Goal blood pressure is between systolic of 100-140 mmHg. For now hold off on taking your home dose of amlodipine and Imdur. Dose of losartan has been increased to 70 mg daily. Continue with your home dose of Cardizem and metoprolol. Please check your blood sugars 3 times a day before each meal. If fasting goal blood sugar is less than 120 and fasting Premeal's before lunch and diarrhea is less than 140. Please discuss with your primary care provider regarding Dexcom possible insulin pump given high amount of insulin requirement with your A1c of more than 12. Take antibiotics with linezolid and Levaquin for next 3 days. Discharge Attestations Time Spent in Discharge Care*: greater than 30 min Specific Discharge Activities: educating patient, educating and/or supporting family/caregiver, discussing with pcp/other providers, discussing with director case management/social workers/dc planners, documenting/other paperwork and evaluating patient/reviewing data Status at Discharge: Cognitive status at discharge: cognitively intact, Behavioral status at discharge: cooperative, Functional status at discharge: uses cane/walker, Overall status at discharge: patient is back to baseline Quality Metrics Clinical Quality Measures [ No reported AMI, CVA or VTE this stay] Coding Level of Care Code 30810 Total time (in minutes) for Discharge: 65 Diagnoses Severe sepsis A41.9; R65.20 Acute hypoxic respiratory failure J96.01 Right middle lobe pulmonary infiltrate R91.8 Acute kidney injury superimposed on CKD N17.9; N18.9 Atrial fibrillation, chronic I48.20 Bradycardia R00.1 Hypoglycemia E16.2 Diabetes E11.9; Z79.4 Diabetes mellitus complication status: without complication Diabetes mellitus skilled nursing insulin use: with skilled nursing use Diabetes mellitus type: type 2 Chronic diastolic heart failure I50.32 Heart failure chronicity: chronic Primary hypertension I10 Hypertension type: primary hypertension Atherosclerosis of [place] coronary artery of [place] heart without angina pectoris I25.10 Coronary Disease-Associated Artery/Lesion type: [place] artery
== END 2024-07-16 12:43 | disposition home health service (06) | DRG 871 ==
LOC: ER 16:00 → ICU 17:44 → MEDSURG 07-15 20:12
PROVIDERS: Admitting Provider Student in an Organized Health Care Education/Training Program; Emergency Provider Emergency Medicine; PCP Internal Medicine; Visit Provider Student in an Organized Health Care Education/Training Program
DX: A41.9 Sepsis, unspecified organism (principal); J18.9 Pneumonia, unspecified organism; J96.01 Acute respiratory failure with hypoxia; J44.0 Chronic obstructive pulmonary disease with (acute) lower respiratory infection; N17.9 Acute kidney failure, unspecified; I13.0 Hypertensive heart and chronic kidney disease with heart failure and stage 1 through stage 4 chronic kidney disease, or unspecified chronic kidney disease; I50.32 Chronic diastolic (congestive) heart failure; I48.20 Chronic atrial fibrillation, unspecified; C79.51 Secondary malignant neoplasm of bone; R65.20 Severe sepsis without septic shock; E11.22 Type 2 diabetes mellitus with diabetic chronic kidney disease; N18.9 Chronic kidney disease, unspecified; R00.1 Bradycardia, unspecified; E11.649 Type 2 diabetes mellitus with hypoglycemia without coma; I25.10 Atherosclerotic heart disease of native coronary artery without angina pectoris; C50.912 Malignant neoplasm of unspecified site of left female breast; I35.0 Nonrheumatic aortic (valve) stenosis; F17.210 Nicotine dependence, cigarettes, uncomplicated; E86.0 Dehydration; G47.30 Sleep apnea, unspecified; Z79.01 Long term (current) use of anticoagulants; Z79.891 Long term (current) use of opiate analgesic; Z79.4 Long term (current) use of insulin; Z79.82 Long term (current) use of aspirin; Z99.89 Dependence on other enabling machines and devices
CPT/HCPCS: 36415; 36416; 36600; 51702; 71045; 71275; 80051; 80053; 80202; 81001; 82330; 82607; 82746; 82805; 82962; 83036; 83540; 83550; 83605; 83735; 83880; 84100; 84145; 84484; 85025; 85378; 86403; 87040; 92610; 93005; 94640; 94660; 96365; 96366; 96367; 96372; 97110; 97116; 97161; 99285; J0360; J1815; J2470; J2543; J3370; J3372; J7030; J7626; J7799; J9999

== ENCOUNTER → 2024-07-20 08:35 | Outpatient (BNVA) | payer MEDICARE, MEDICAID, SELFPAY | PROVIDERS: PCP Internal Medicine; Visit Provider Thoracic Surgery (Cardiothoracic Vascular Surgery) | DX: E11.52 Type 2 diabetes mellitus with diabetic peripheral angiopathy with gangrene (principal); E11.622 Type 2 diabetes mellitus with other skin ulcer; L97.821 Non-pressure chronic ulcer of other part of left lower leg limited to breakdown of skin; I87.2 Venous insufficiency (chronic) (peripheral) | CPT/HCPCS: 97597; A6212 ==

== ENCOUNTER → 2024-08-03 14:10 | Outpatient (BNVA) | payer MEDICARE, MEDICAID, SELFPAY | PROVIDERS: PCP Internal Medicine | DX: E11.52 Type 2 diabetes mellitus with diabetic peripheral angiopathy with gangrene (principal); E11.622 Type 2 diabetes mellitus with other skin ulcer; L97.821 Non-pressure chronic ulcer of other part of left lower leg limited to breakdown of skin; L84 Corns and callosities | CPT/HCPCS: 11055 ==

== ENCOUNTER → 2024-08-17 10:20 | Outpatient (BNVA) | payer MEDICARE, MEDICAID, SELFPAY | PROVIDERS: PCP Internal Medicine; Visit Provider Thoracic Surgery (Cardiothoracic Vascular Surgery) | DX: Z09 Encounter for follow-up examination after completed treatment for conditions other than malignant neoplasm (principal); Z87.2 Personal history of diseases of the skin and subcutaneous tissue | CPT/HCPCS: 99212 ==

== ENCOUNTER → 2024-09-21 13:43 | Outpatient (BNVA) | payer MEDICARE, MEDICAID, SELFPAY | PROVIDERS: PCP Internal Medicine; Visit Provider Internal Medicine Cardiovascular Disease | DX: I48.20 Chronic atrial fibrillation, unspecified (principal); Z79.01 Long term (current) use of anticoagulants; Z79.82 Long term (current) use of aspirin; I13.0 Hypertensive heart and chronic kidney disease with heart failure and stage 1 through stage 4 chronic kidney disease, or unspecified chronic kidney disease; N18.9 Chronic kidney disease, unspecified; I50.30 Unspecified diastolic (congestive) heart failure; I25.10 Atherosclerotic heart disease of native coronary artery without angina pectoris; I73.9 Peripheral vascular disease, unspecified; I08.0 Rheumatic disorders of both mitral and aortic valves; I49.5 Sick sinus syndrome; F17.200 Nicotine dependence, unspecified, uncomplicated | CPT/HCPCS: 99214 ==

== ENCOUNTER 2025-01-03 12:51 | Outpatient (CLI) | payer MEDICARE, MEDICAID, SELFPAY ==
--- NOTE | 2025-01-03 13:00 | XR_ITS ---
WS: [id number] XR shoulder RT min 2V* [id number] REASON FOR EXAM: PAIN IN R SHOULDER FINDINGS: No fracture or focal bone lesion. Acromioclavicular joint space is intact with mild narrowing. Minimal subchondral sclerosis and osteophytosis. The glenohumeral joint space is not well demonstrated but appears to be significantly narrowed. There is moderate subchondral sclerosis and cystic change in the glenoid with mild osteophytosis of the humeral head. Mild to moderate sclerosis and cystic change in the greater tuberosity of the humerus. XR/XR shoulder RT min 2V* [id number] IMPRESSION: Minimal osteoarthritis of the acromioclavicular joint. Significant osteoarthritis of the glenohumeral joint. Mild to moderate rotator cuff tendon arthropathy.
--- NOTE | 2025-01-03 13:01 | XRR_ITS ---
PROCEDURE INFORMATION: Exam: XR Chest Exam date and time: 01/03/2025 1:07 PM Age: 69 years old Clinical indication: Cough; TECHNIQUE: Imaging protocol: Radiologic exam of the chest. Views: 2 views. COMPARISON: CT angio chest PE protcl [id number] 07/13/2024 5:22 PM FINDINGS: Lungs: Multifocal opacities in the bilateral perihilar regions as well as the right mid/lower lung. Pleural spaces: No pneumothorax. No pleural effusion. Heart/Mediastinum: Unremarkable. No cardiomegaly. Bones/joints: Unremarkable. Soft tissues: Left breast and axillary surgical clips. XR/XR chest 2V* [id number] IMPRESSION: Multifocal opacities in the bilateral perihilar regions as well as the right mid/lower lung. Differential includes infection versus aspiration.
== END 2025-01-03 12:52 | disposition home or self-care (01) ==
PROVIDERS: PCP Internal Medicine; Visit Provider Internal Medicine
DX: M19.011 Primary osteoarthritis, right shoulder (principal); R05.1 Acute cough; M25.711 Osteophyte, right shoulder; M89.8X1 Other specified disorders of bone, shoulder; R91.8 Other nonspecific abnormal finding of lung field
CPT/HCPCS: 71046; 73030